=== PATIENT | male | born 1935 | race Caucasian/White ===

== ENCOUNTER 2018-04-15 21:02 | Inpatient (IN) | payer MEDICARE, OTHER ==
[~2018-04-15] VITALS: Ht 177.8 cm; Wt 68.9 kg
[~2018-04-15 21:02] MED LIST: ADULT WAL-100 MG/5 M ORAL; ASPIRIN81 MG ORAL; ATORVASTATIN CA80 MG ORAL; CARDURA4 MG ORAL; DOCUSATE SODIU100 MG ORAL; LOSARTAN POTASS50 MG ORAL; PREDNISONE5 M4 PO; SENNA8.6 M2 PO; VITAMIN B-12500 MCG ORAL; VITAMIN D-40400 UNIT ORAL; ZOFRAN8 MG ORAL
[2018-04-15 21:05] VITALS: BP 111/64
[2018-04-15] MEDS ORDERED: Ipratropium 0.02% Inh Soln 2.5ml UD HHN ONE (21:15)
[2018-04-15] MEDS ORDERED: Albuterol ud Inhalation HHN ONE (21:15)
[2018-04-15] MEDS ORDERED: Sodium Chloride 500ML 500 ML IV ONE (21:15)
[2018-04-15] MEDS ORDERED: ADVAIR 250/501 PUFFS INH (21:24)
[2018-04-15] MEDS ORDERED: PROTONIX40 MG ORAL (21:24)
[2018-04-15] MEDS ORDERED: MECLIZINE HCL25 MG ORAL (21:24)
[2018-04-15] MEDS ORDERED: FLONASE ALLERG9.9 ML NS (21:24)
[2018-04-15] MEDS ORDERED: LANTUS SOL100 UNIT/1 SUBQ (21:24)
[2018-04-15] MEDS ORDERED: DUONEB 0.5-3(2.53 ML HHN (21:24)
[2018-04-15] MEDS ORDERED: TUMS200 M1 PO (21:24)
[2018-04-15] MEDS ORDERED: SPIRIVA18 MCG INH (21:24)
[2018-04-15] MEDS ORDERED: MULTIVITAMINS1 EAC2 ORAL (21:24)
[2018-04-15] MEDS ORDERED: PREVACID30 MG ORAL (21:24)
[2018-04-15] MEDS ORDERED: ATIVAN0.5 MG ORAL (21:24)
[2018-04-15] MEDS ORDERED: FERROUS SULFAT325 MG ORAL (21:24)
[2018-04-15] MEDS ORDERED: ZYRTEC10 MG ORAL (21:24)
[2018-04-15] MEDS ORDERED: CARDURA4 MG ORAL (21:27)
--- NOTE | 2018-04-15 23:04 | Emergency Room Report ---
History of Present Illness General Chief Complaint: Fever Present Illness HPI Patient is a cough and difficulty breathing. 83-year-old male who presented after increased cough and difficulty breathing. Patient prior history of COPD. He had reportedly been having increased fever as well as low blood pressure. Patient was noted to have pulsed which as stated that he is DO NOT RESUSCITATE. The patient reports having increased productive cough. The patient stated that he resides at a nursing facility. The patient is noted to be self responsible. Allergies: Coded Allergies: RISPERIDONE (Verified Allergy, Intermediate, 04/27/16) Patient History Past Medical History: see triage record Reviewed Nursing Documentation: PMH: Agreed; PSxH: Agreed Nursing Documentation-PMH Hx Cardiac Problems: Yes - Atherosclerosis; Anemia Hx Hypertension: Yes Hx COPD: Yes Hx Diabetes: Yes Hx Gastrointestinal Problems: Yes - Reflux Review of Systems All Other Systems: negative except mentioned in HPI Physical Exam Vital Signs Date Time Temp Pulse Resp B/P (MAP) Pulse Ox O2 Delivery O2 Flow Rate FiO2 04/15/18 20:54 98.4 92 22 102/50 99 Nasal Cannula 2.0 Sp02 EP Interpretation: reviewed, normal General Appearance: normal inspection, well appearing, no apparent distress, alert, cachetic, Chronically Ill Head: atraumatic ENT: normal ENT inspection, hearing grossly normal, normal voice Neck: normal inspection, full range of motion, supple, no bony tend Respiratory: normal inspection, no retraction, wheezing Cardiovascular #1: regular rate, rhythm, no edema Gastrointestinal: normal inspection, normal bowel sounds, non tender, soft, no guarding, no hernia Genitourinary: no CVA tenderness Musculoskeletal: normal inspection, back normal, normal range of motion Neurologic: normal inspection, alert, oriented x3, responsive, teleprinter III-XII nml as tested, speech normal Psychiatric: normal inspection, judgement/insight normal, mood/affect normal Skin: normal inspection, normal color, no rash Medical Decision Making Diagnostic Impression: Primary Impression: COPD exacerbation ER Course Patient presented for cough and increased difficulty breathing. Patient prior history of COPD. Patient states he had previous bad experience at the hospital and refused most interventions. Noted to have a prior history of COPD. He was given breathing treatment the patient refused IV as well as the EKG testing. The patient was noted to have some oxygen requirements was started on supplemental oxygen. Patient was noted to be self responsible. He is to be awake and alert. The patient was noted to have some continued difficulty breathing however he declined the IV fluids as well as IV medications. Dr. Leland Joseph was contacted for inpatient management. The patient will likely require further respiratory management to include breathing treatments and possible antibiotics Last Vital Signs Date Time Temp Pulse Resp B/P (MAP) Pulse Ox O2 Delivery O2 Flow Rate FiO2 04/15/18 22:44 92 20 99 Nasal Cannula 2.0 04/15/18 20:54 98.4 102/50 Status: unchanged Disposition: ADMITTED INPATIENT Condition: Serious Javier Machuca MD Apr 15, 2018 23:04
[2018-04-16 00:50] VITALS: BP 123/72
[2018-04-16 01:00] VITALS: BP 98/46
[2018-04-16] MEDS ORDERED: LORazepam 0.5mg tab ORAL PRN (06:15)
[2018-04-16] MEDS ORDERED: LORazepam Inj 2mg/ml 1ml IV PRN (06:15)
[2018-04-16] MEDS ORDERED: Nitroglycerin Subl 0.4mg tab SL PRN (06:15)
[2018-04-16] MEDS ORDERED: Promethazine/Codeine 5ml UD ORAL PRN (06:15)
[2018-04-16] MEDS ORDERED: Ketorolac 30mg Inj IV PRN (06:15)
[2018-04-16] MEDS ORDERED: Morphine Sulfate 2mg/ml Inj IVP PRN (06:15)
[2018-04-16] MEDS ORDERED: Solu-MEDROL 125mg Inj IV SCH (06:30)
[2018-04-16 07:29] LABS: BASOPHILS % (AUTO) 0.5 % (0.0-2.0); EOSINOPHILS % (AUTO) 1.9 % (0.0-3.0); HEMATOCRIT 27.3 % (42.0-52.0); HEMOGLOBIN 8.9 G/DL (14.2-18.0); LYMPHOCYTES % (AUTO) 6.6 % (20.0-45.0); MEAN CORPUSCULAR VOLUME 84 FL (80-99); MONOCYTES % (AUTO) 9.4 % (1.0-10.0); NEUTROPHILS % (AUTO) 81.6 % (45.0-75.0); PLATELET COUNT 499 K/UL (150-450); RED BLOOD COUNT 3.26 M/UL (4.70-6.10); RED CELL DISTRIBUTION WIDTH 15.6 % (11.6-14.8); WHITE BLOOD COUNT 13.8 K/UL (4.8-10.8)
[2018-04-16 07:49] LABS: ANION GAP 11 mmol/L (5-15); BLOOD UREA NITROGEN 89 mg/dL (7-18); CALCIUM 9.6 MG/DL (8.5-10.1); CARBON DIOXIDE 26 MMOL/L (21-32); CHLORIDE 97 MMOL/L (98-107); CREATININE 2.4 MG/DL (0.55-1.30); POTASSIUM 3.3 MMOL/L (3.5-5.1); SODIUM 134 MMOL/L (136-145)
[2018-04-16 08:00] VITALS: BP 112/53
[2018-04-16 08:00] LABS: ALANINE AMINOTRANSFERASE 21 U/L (12-78); ALBUMIN 2.1 G/DL (3.4-5.0); ALBUMIN/GLOBULIN RATIO 0.3 (1.0-2.7); ALKALINE PHOSPHATASE 106 U/L (46-116); ASPARTATE AMINO TRANSFERASE 26 U/L (15-37); BILIRUBIN,TOTAL 0.7 MG/DL (0.2-1.0)
[2018-04-16] MEDS ORDERED: Piperacillin/Tazobactam 3.375 GM in NS 110 ML IVPB SCH (08:00)
[2018-04-16] MEDS: Doxazosin 4mg tab ORAL SCH (08:33)
[2018-04-16] MEDS: Theophylline ER 100mg ORAL SCH ×2 (08:33→20:44)
[2018-04-16] MEDS: Heparin 5000 units/ml inj SUBQ SCH ×2 (08:53→20:37)
[2018-04-16] MEDS: Losartan 50mg tab ORAL SCH (08:53)
[2018-04-16] MEDS ORDERED: Aspirin Baby 81mg ORAL SCH (09:00)
[2018-04-16 10:55] LABS: CREATINE KINASE 94 U/L (26-308)
--- NOTE | 2018-04-16 10:55 | Consultation ---
History of Present Illness General Date patient seen: Apr 16, 2018 Chief Complaint: Fever Reason for Consultation: dyspnea Present Illness HPI 83 year old male with hx of COPD, CKD, DM, BPH, PVD, cachectic, DNR, [facility] resident brought in with CC of cough and difficulty breathing, fever as well as low blood pressure. His cxr showed emphysematous changes and bibasilar infiltrate. He received IV fluids and respiratory treatment in ER and admitted to telemetry for further management. Allergies: Coded Allergies: RISPERIDONE (Verified Allergy, Intermediate, 04/27/16) Medication History Scheduled Aspirin* (Aspirin*), 81 MG ORAL DAILY, (Reported) Atorvastatin Calcium* (Lipitor*), 80 MG ORAL BEDTIME, (Reported) Calcium Carbonate (Tums), 200 MG PO Q4HR, (Reported) Cetirizine Hcl* (Zyrtec*), 10 MG ORAL DAILY, (Reported) Cholecalciferol (Vitamin D3) (Vitamin D-400*), 400 UNITS ORAL DAILY, (Reported) Cyanocobalamin (Vitamin B-12)* (Vitamin B-12*), 500 MCG ORAL DAILY, (Reported) Docusate Sodium* (Docusate Sodium*), 100 MG ORAL TWICE A DAY, (Reported) Doxazosin Mesylate* (Cardura*), 6 MG ORAL BEDTIME, (Reported) Doxazosin Mesylate* (Cardura*), 4 MG ORAL HS, (Reported) Ferrous Sulfate* (Ferrous Sulfate*), 325 MG ORAL THREE TIMES A DAY, (Reported) Fluticasone Propionate (Flonase Allergy Relief), 9.9 ML NS BID, (Reported) Fluticasone/Salmeterol (Advair 250-50 Diskus), 1 PUFF INH EVERY 12 HOURS, ( Reported) Guaifenesin* (Adult Wal-Tussin*), 30 ML ORAL EVERY 6 HOURS, (Reported) Insulin Glargine (Lantus), 10 SUBQ DAILY, (Reported) Ipratropium/Albuterol Sulfate (DuoNeb 0.5-3(2.5)mg/3ml), 3 ML HHN Q4HR, ( Reported) Lansoprazole* (Prevacid*), 30 MG ORAL BID, (Reported) Losartan Potassium* (Losartan Potassium*), 50 MG ORAL DAILY, (Reported) Multivitamins* (Multivitamins*), 1 TAB ORAL DAILY, (Reported) Ondansetron Hcl* (Zofran*), 8 MG ORAL EVERY 4 HOURS, (Reported) Pantoprazole* (Protonix*), 40 MG ORAL EVERY 12 HOURS, (Reported) Prednisone (Prednisone), 60 MG PO DAILY, (Reported) Sennosides (Senna), 17.2 MG PO BEDTIME, (Reported) Tiotropium [place]* (Spiriva*), 1 PUFF INH DAILY, (Reported) Scheduled PRN Lorazepam* (Ativan*), 0.5 MG ORAL DAILY PRN for For Anxiety, (Reported) Meclizine Hcl* (Meclizine*), 25 MG ORAL THREE TIMES A DAY PRN for for dizziness, (Reported) Patient History Healthcare decision maker Resuscitation status Do Not Resuscitate Advanced Directive on File No Past Medical/Surgical History Past Medical/Surgical History: (1) Emphysema of lung (2) PVD (peripheral vascular disease) (3) Severe protein-calorie malnutrition (4) Hypertension Review of Systems All Other Systems: negative except mentioned in HPI Physical Exam General Appearance: cachetic Lines, tubes and drains: peripheral HEENT: normocephalic, atraumatic Neck: non-tender, normal alignment Respiratory/Chest: chest wall non-tender Breasts: no masses Cardiovascular/Chest: normal peripheral pulses, normal rate Abdomen: normal bowel sounds, soft Genitourinary/Rectal: normal genital exam, normal rectal exam Extremities: normal range of motion, non-tender 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: rotary 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 II-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 grossly normal Last 24 Hour Vital Signs Date Time Temp Pulse Resp B/P (MAP) Pulse Ox O2 Delivery O2 Flow Rate FiO2 04/16/18 08:53 112/53 04/16/18 08:00 97.3 117 19 112/53 (72) 96 04/16/18 07:45 110 18 Nasal Cannula 2.0 28 04/16/18 02:50 87 04/16/18 02:38 Nasal Cannula 2.0 04/16/18 01:00 98 17 98/46 (63) 99 04/16/18 00:55 98.5 78 20 123/72 99 Nasal Cannula 2.0 04/16/18 00:50 98.5 78 20 123/72 99 Nasal Cannula 2.0 04/15/18 23:32 92 20 Nasal Cannula 2.0 04/15/18 22:44 92 20 99 Nasal Cannula 2.0 04/15/18 22:30 89 20 Nasal Cannula 2.0 04/15/18 22:29 89 20 99 Nasal Cannula 2.0 04/15/18 21:05 98.1 87 22 111/64 99 Nasal Cannula 2.0 04/15/18 20:54 98.4 92 22 102/50 99 Nasal Cannula 2.0 Intake and Output 04/15/18 04/16/18 19:00 07:00 Intake Total 320 ml Output Total 400 ml Balance -80 ml Intake Oral 320 ml Output Urine Total 400 ml Laboratory Tests Test 04/16/18 07:15 04/16/18 07:16 Uric Acid Pending Total Creatine Kinase Pending White Blood Count 13.8 K/UL (4.8-10.8) H Red Blood Count 3.26 M/UL (4.70-6.10) L Hemoglobin 8.9 G/DL (14.2-18.0) L Hematocrit 27.3 % (42.0-52.0) L Mean Corpuscular Volume 84 FL (80-99) Mean Corpuscular Hemoglobin 27.4 PG (27.0-31.0) Mean Corpuscular Hemoglobin Concent 32.7 G/DL (32.0-36.0) Red Cell Distribution Width 15.6 % (11.6-14.8) H Platelet Count 499 K/UL (150-450) H Mean Platelet Volume 6.5 FL (6.5-10.1) Neutrophils (%) (Auto) 81.6 % (45.0-75.0) H Lymphocytes (%) (Auto) 6.6 % (20.0-45.0) L Monocytes (%) (Auto) 9.4 % (1.0-10.0) Eosinophils (%) (Auto) 1.9 % (0.0-3.0) Basophils (%) (Auto) 0.5 % (0.0-2.0) Sodium Level 134 MMOL/L (136-145) L Potassium Level 3.3 MMOL/L (3.5-5.1) L Chloride Level 97 MMOL/L (98-107) L Carbon Dioxide Level 26 MMOL/L (21-32) Anion Gap 11 mmol/L (5-15) Blood Urea Nitrogen 89 mg/dL (7-18) H Creatinine 2.4 MG/DL (0.55-1.30) H Estimat Glomerular Filtration Rate mL/min (>60) Glucose Level 169 MG/DL (74-106) H Calcium Level 9.6 MG/DL (8.5-10.1) Total Bilirubin 0.7 MG/DL (0.2-1.0) Aspartate Amino Transf (AST/SGOT) 26 U/L (15-37) Alanine Aminotransferase (ALT/SGPT) 21 U/L (12-78) Alkaline Phosphatase 106 U/L (46-116) Troponin I 0.017 ng/mL (0.000-0.056) Pro-B-Type Natriuretic Peptide 3987 pg/mL (0-125) H Total Protein 8.1 G/DL (6.4-8.2) Albumin 2.1 G/DL (3.4-5.0) L Globulin 6.0 g/dL Albumin/Globulin Ratio 0.3 (1.0-2.7) L Height (Feet): 5 Height (Inches): 10.00 Weight (Pounds): 132 Medications Current Medications Medications (Trade) Dose Ordered Sig/Amish Route PRN Reason Start Time Stop Time Status Last Admin Dose Admin Albuterol/ Ipratropium (Albuterol/ Ipratropium) 3 ml Q4H PRN HHN dyspnea 04/16/18 06:15 04/21/18 06:14 Aspirin (ASA) 81 mg DAILY ORAL 04/16/18 09:00 05/16/18 08:59 04/16/18 08:32 Atorvastatin Calcium (Lipitor) 80 mg BEDTIME ORAL 04/16/18 21:00 05/16/18 20:59 Dextrose (Dextrose 50%) 25 ml Q30M PRN IV Hypoglycemia 04/16/18 06:15 05/16/18 06:14 Dextrose (Dextrose 50%) 50 ml Q30M PRN IV Hypoglycemia 04/16/18 06:15 05/16/18 06:14 Doxazosin Mesylate (Cardura) 4 mg DAILY ORAL 04/16/18 09:00 05/16/18 08:59 04/16/18 08:33 Heparin Sodium (Porcine) (Heparin 5000 units/ml) 5,000 units EVERY 12 HOURS SUBQ 04/16/18 09:00 05/16/18 08:59 Ketorolac Tromethamine (Toradol 30mg) 30 mg EVERY 8 HOURS PRN IV moderate pain 4-6 04/16/18 06:15 04/21/18 06:14 Lorazepam (Ativan 2mg/ml 1ml) 0.5 mg Q4H PRN IV For Anxiety 04/16/18 06:15 04/23/18 06:14 Lorazepam (Ativan) 0.5 mg DAILY PRN ORAL For Anxiety 04/16/18 06:15 04/23/18 06:14 UNV Losartan Potassium (Cozaar) 50 mg DAILY ORAL 04/16/18 09:00 05/16/18 08:59 Methylprednisolone Sodium Succinate (Solu-MEDROL) 60 mg EVERY 6 HOURS IV 04/16/18 06:30 05/16/18 06:29 Morphine Sulfate (Morphine Sulfate) 2 mg Q4H PRN IVP severe pain 7-10 04/16/18 06:15 04/23/18 06:14 Nitroglycerin (Ntg) 0.4 mg Q5M X 3 DOSES PRN SL Prn Chest Pain 04/16/18 06:15 05/16/18 06:14 Ondansetron HCl (Zofran) 4 mg Q6H PRN IVP Nausea & Vomiting 04/16/18 06:15 05/16/18 06:14 Piperacillin Sod/ Tazobactam Sod 3.375 gm/Sodium Chloride 110 ml @ 27.5 mls/hr Q8H IVPB 04/16/18 08:00 04/23/18 07:59 Promethazine HCl/ Codeine (Phenergan with Codeine) 5 ml Q6H PRN ORAL cough 04/16/18 06:15 05/16/18 06:14 Temazepam (Restoril) 15 mg HSPRN PRN ORAL Insomnia 04/16/18 06:15 04/23/18 06:14 Theophylline (Nader-Dur) 100 mg EVERY 12 HOURS ORAL 04/16/18 09:00 05/16/18 08:59 04/16/18 08:33 Tiotropium [place] (Spiriva Inhaler) 1 puff DAILY INH 04/16/18 09:00 05/16/18 08:59 Assessment/Plan Problem List: (1) Acute respiratory failure ICD Codes: J96.00 - Acute respiratory failure, unspecified whether with hypoxia or hypercapnia SNOMED: 74547421 (2) ATN (acute tubular necrosis) ICD Codes: N17.0 - Acute kidney failure with tubular necrosis SNOMED: 62394467 (3) CKD (chronic kidney disease) ICD Codes: N18.9 - Chronic kidney disease, unspecified SNOMED: 401609961 (4) Severe protein-calorie malnutrition ICD Codes: E43 - Unspecified severe protein-calorie malnutrition SNOMED: 277492038 (5) Hypertension ICD Codes: I10 - Essential (primary) hypertension SNOMED: 50909507 (6) PVD (peripheral vascular disease) ICD Codes: I73.9 - Peripheral vascular disease, unspecified SNOMED: 214450752 (7) Emphysema of lung ICD Codes: J43.9 - Emphysema, unspecified SNOMED: 24003025 (8) COPD exacerbation ICD Codes: J44.1 - Chronic obstructive pulmonary disease with (acute) exacerbation SNOMED: 461901686 Assessment/Plan respiratory treatment IV steroids iv abx renal w/u iv fluid symptomatic treatment DNR is appropriate med/surg Alejandrina Cee MD Apr 16, 2018 10:55
--- NOTE | 2018-04-16 16:41 | Consultation ---
History of Present Illness General Date patient seen: Apr 16, 2018 Chief Complaint: Fever Reason for Consultation: dyspnea Present Illness HPI 83 y/o M with hx of COPD, CKD, DM, HTN, anemia, GERD, BPH, PVD, cachectic, DNR, [facility] on 04/15 with cough, SOB, fever and hypotension. CXR showed bibasilar infiltrates. Allergies: Coded Allergies: RISPERIDONE (Verified Allergy, Intermediate, 04/27/16) Medication History Scheduled Aspirin* (Aspirin*), 81 MG ORAL DAILY, (Reported) Atorvastatin Calcium* (Lipitor*), 80 MG ORAL BEDTIME, (Reported) Calcium Carbonate (Tums), 200 MG PO Q4HR, (Reported) Cetirizine Hcl* (Zyrtec*), 10 MG ORAL DAILY, (Reported) Cholecalciferol (Vitamin D3) (Vitamin D-400*), 400 UNITS ORAL DAILY, (Reported) Cyanocobalamin (Vitamin B-12)* (Vitamin B-12*), 500 MCG ORAL DAILY, (Reported) Docusate Sodium* (Docusate Sodium*), 100 MG ORAL TWICE A DAY, (Reported) Doxazosin Mesylate* (Cardura*), 6 MG ORAL BEDTIME, (Reported) Doxazosin Mesylate* (Cardura*), 4 MG ORAL HS, (Reported) Ferrous Sulfate* (Ferrous Sulfate*), 325 MG ORAL THREE TIMES A DAY, (Reported) Fluticasone Propionate (Flonase Allergy Relief), 9.9 ML NS BID, (Reported) Fluticasone/Salmeterol (Advair 250-50 Diskus), 1 PUFF INH EVERY 12 HOURS, ( Reported) Guaifenesin* (Adult Wal-Tussin*), 30 ML ORAL EVERY 6 HOURS, (Reported) Insulin Glargine (Lantus), 10 SUBQ DAILY, (Reported) Ipratropium/Albuterol Sulfate (DuoNeb 0.5-3(2.5)mg/3ml), 3 ML HHN Q4HR, ( Reported) Lansoprazole* (Prevacid*), 30 MG ORAL BID, (Reported) Losartan Potassium* (Losartan Potassium*), 50 MG ORAL DAILY, (Reported) Multivitamins* (Multivitamins*), 1 TAB ORAL DAILY, (Reported) Ondansetron Hcl* (Zofran*), 8 MG ORAL EVERY 4 HOURS, (Reported) Pantoprazole* (Protonix*), 40 MG ORAL EVERY 12 HOURS, (Reported) Prednisone (Prednisone), 60 MG PO DAILY, (Reported) Sennosides (Senna), 17.2 MG PO BEDTIME, (Reported) Tiotropium [place]* (Spiriva*), 1 PUFF INH DAILY, (Reported) Scheduled PRN Lorazepam* (Ativan*), 0.5 MG ORAL DAILY PRN for For Anxiety, (Reported) Meclizine Hcl* (Meclizine*), 25 MG ORAL THREE TIMES A DAY PRN for for dizziness, (Reported) Patient History Healthcare decision maker Resuscitation status Do Not Resuscitate Advanced Directive on File No Patient History Narrative Pmhx: as above Shx: reviewed Fhx: non contributory Review of Systems All Other Systems: negative except mentioned in HPI Physical Exam Physical Exam Narrative General Appearance: cachetic Lines, tubes and drains: peripheral HEENT: normocephalic, atraumatic Neck: non-tender, normal alignment Respiratory/Chest: chest wall non-tender Cardiovascular/Chest: normal peripheral pulses, normal rate Abdomen: normal bowel sounds, soft Extremities: normal range of motion, non-tender Neurologic: dehydrator tender II-XII grossly normal Last 24 Hour Vital Signs Date Time Temp Pulse Resp B/P (MAP) Pulse Ox O2 Delivery O2 Flow Rate FiO2 04/16/18 12:00 90 04/16/18 11:09 Nasal Cannula 2.0 04/16/18 09:00 Nasal Cannula 2.0 28 04/16/18 09:00 Nasal Cannula 2.0 28 04/16/18 08:53 112/53 04/16/18 08:00 97.3 117 19 112/53 (72) 96 04/16/18 07:45 110 18 Nasal Cannula 2.0 28 04/16/18 02:50 87 04/16/18 02:38 Nasal Cannula 2.0 04/16/18 01:00 98 17 98/46 (63) 99 04/16/18 00:55 98.5 78 20 123/72 99 Nasal Cannula 2.0 04/16/18 00:50 98.5 78 20 123/72 99 Nasal Cannula 2.0 04/15/18 23:32 92 20 Nasal Cannula 2.0 04/15/18 22:44 92 20 99 Nasal Cannula 2.0 04/15/18 22:30 89 20 Nasal Cannula 2.0 04/15/18 22:29 89 20 99 Nasal Cannula 2.0 04/15/18 21:05 98.1 87 22 111/64 99 Nasal Cannula 2.0 04/15/18 20:54 98.4 92 22 102/50 99 Nasal Cannula 2.0 Intake and Output 04/15/18 04/16/18 19:00 07:00 Intake Total 320 ml Output Total 400 ml Balance -80 ml Intake Oral 320 ml Output Urine Total 400 ml Laboratory Tests Test 04/16/18 07:15 04/16/18 07:16 Uric Acid 17.8 MG/DL (2.6-7.2) H Total Creatine Kinase 94 U/L (26-308) White Blood Count 13.8 K/UL (4.8-10.8) H Red Blood Count 3.26 M/UL (4.70-6.10) L Hemoglobin 8.9 G/DL (14.2-18.0) L Hematocrit 27.3 % (42.0-52.0) L Mean Corpuscular Volume 84 FL (80-99) Mean Corpuscular Hemoglobin 27.4 PG (27.0-31.0) Mean Corpuscular Hemoglobin Concent 32.7 G/DL (32.0-36.0) Red Cell Distribution Width 15.6 % (11.6-14.8) H Platelet Count 499 K/UL (150-450) H Mean Platelet Volume 6.5 FL (6.5-10.1) Neutrophils (%) (Auto) 81.6 % (45.0-75.0) H Lymphocytes (%) (Auto) 6.6 % (20.0-45.0) L Monocytes (%) (Auto) 9.4 % (1.0-10.0) Eosinophils (%) (Auto) 1.9 % (0.0-3.0) Basophils (%) (Auto) 0.5 % (0.0-2.0) Sodium Level 134 MMOL/L (136-145) L Potassium Level 3.3 MMOL/L (3.5-5.1) L Chloride Level 97 MMOL/L (98-107) L Carbon Dioxide Level 26 MMOL/L (21-32) Anion Gap 11 mmol/L (5-15) Blood Urea Nitrogen 89 mg/dL (7-18) H Creatinine 2.4 MG/DL (0.55-1.30) H Estimat Glomerular Filtration Rate mL/min (>60) Glucose Level 169 MG/DL (74-106) H Calcium Level 9.6 MG/DL (8.5-10.1) Total Bilirubin 0.7 MG/DL (0.2-1.0) Aspartate Amino Transf (AST/SGOT) 26 U/L (15-37) Alanine Aminotransferase (ALT/SGPT) 21 U/L (12-78) Alkaline Phosphatase 106 U/L (46-116) Troponin I 0.017 ng/mL (0.000-0.056) Pro-B-Type Natriuretic Peptide 3987 pg/mL (0-125) H Total Protein 8.1 G/DL (6.4-8.2) Albumin 2.1 G/DL (3.4-5.0) L Globulin 6.0 g/dL Albumin/Globulin Ratio 0.3 (1.0-2.7) L Height (Feet): 5 Height (Inches): 10.00 Weight (Pounds): 132 Medications Current Medications Medications (Trade) Dose Ordered Sig/Amish Route PRN Reason Start Time Stop Time Status Last Admin Dose Admin Albuterol/ Ipratropium (Albuterol/ Ipratropium) 3 ml Q4H PRN HHN dyspnea 04/16/18 06:15 04/21/18 06:14 Amoxicillin/ Clavulanate Potassium (Augmentin) 500 mg EVERY 12 HOURS ORAL 04/16/18 12:00 04/23/18 11:59 04/16/18 12:03 Dextrose (Dextrose 50%) 25 ml Q30M PRN IV Hypoglycemia 04/16/18 06:15 05/16/18 06:14 Dextrose (Dextrose 50%) 50 ml Q30M PRN IV Hypoglycemia 04/16/18 06:15 05/16/18 06:14 Doxazosin Mesylate (Cardura) 4 mg DAILY ORAL 04/16/18 09:00 05/16/18 08:59 04/16/18 08:33 Heparin Sodium (Porcine) (Heparin 5000 units/ml) 5,000 units EVERY 12 HOURS SUBQ 04/16/18 09:00 05/16/18 08:59 Lorazepam (Ativan) 0.5 mg DAILY PRN ORAL For Anxiety 04/16/18 06:15 04/23/18 06:14 Losartan Potassium (Cozaar) 50 mg DAILY ORAL 04/16/18 09:00 05/16/18 08:59 Nitroglycerin (Ntg) 0.4 mg Q5M X 3 DOSES PRN SL Prn Chest Pain 04/16/18 06:15 05/16/18 06:14 Prednisone (predniSONE) 40 mg DAILY ORAL 04/16/18 12:00 05/16/18 11:59 04/16/18 12:02 Promethazine HCl/ Codeine (Phenergan with Codeine) 5 ml Q6H PRN ORAL cough 04/16/18 06:15 05/16/18 06:14 Temazepam (Restoril) 15 mg HSPRN PRN ORAL Insomnia 04/16/18 06:15 04/23/18 06:14 Theophylline (Nader-Dur) 100 mg EVERY 12 HOURS ORAL 04/16/18 09:00 05/16/18 08:59 04/16/18 08:33 Tiotropium [place] (Spiriva Inhaler) 1 puff DAILY INH 04/16/18 09:00 05/16/18 08:59 Assessment/Plan Assessment/Plan Abx: Augmentin 04/16- Assessment: Suspected PNA (+cough, fever, SOB) Fever, SVP RESEARCH & EBUS[employer] OPERATIONS - none here Leukocytosis PETER on CKD COPD DM HTN anemia GERD BPH PVD cachectic DNR jail resident Plan: -Switch Augmentin #1 to PO Levaquin and add Linezolid for suspected PNA -CXR STAT -sp cx, influenza sc -f/u cx -Monitor CBC/CMP, temperatures Thank you for this consultation. Will continue to follow along with you. Discussed with Paula Parsons M.D. Apr 16, 2018 16:41
[2018-04-16] MEDS: Levofloxacin 500mg tab ORAL SCH ×2 (17:00→17:13)
[2018-04-16] MEDS ORDERED: Levofloxacin 500mg tab ORAL SCH (20:00)
[2018-04-16 20:56] LABS: APPEARANCE,URINE CLEAR; BILIRUBIN, URINE NEGATIVE (NEGATIVE); COLOR,URINE PALE YELLOW; GLUCOSE, URINE (UA) NEGATIVE (NEGATIVE); KETONES,URINE NEGATIVE (NEGATIVE); LEUKOCYTE ESTERASE ,URINE 1+ (NEGATIVE); NITRITE,URINE NEGATIVE (NEGATIVE); PH,URINE 5 (4.5-8.0); PROTEIN,URINE 2+ (NEGATIVE); UROBILINOGEN,URINE NORMAL MG/DL (0.0-1.0)
[2018-04-16] MEDS ORDERED: Atorvastatin 80mg tab ORAL SCH (21:00)
--- NOTE | 2018-04-16 21:00 | History and Physical Report ---
DATE OF ADMISSION: 04/15/2018 TIME SEEN: On 04/16/2018 at 12 noon. CONSULTANTS: 1. Alejandrina Cee M.D. 2. Solomon Candelaria M.D. CHIEF COMPLAINT: Shortness of breath, failure to thrive, weakness, cough, pneumonia. BRIEF HISTORY: This is an 83-year-old male from [facility], who presented with increased shortness of breath, weak, and lethargy, was diagnosed with pneumonia and sepsis, and admitted to telemetry for further care. Currently, O2 NC, slight short of breath in bed, no complaint. REVIEW OF SYSTEMS: No chest pain. Slight shortness of breath. No nausea, vomiting, or diarrhea. PAST MEDICAL HISTORY: Diabetes. PAST SURGICAL HISTORY: None. ALLERGIES: Risperidone. MEDICATIONS: Include prednisone, Augmentin, potassium, losartan, theophylline, lorazepam, nitroglycerin, temazepam. SOCIAL HISTORY: No smoking. Occasional alcohol. No intravenous drug abuse. FAMILY HISTORY: Noncontributory. PHYSICAL EXAMINATION: GENERAL: Calm in bed, oriented x2, in no acute distress. VITAL SIGNS: Temperature 97 degrees, pulse 117, respirations 19, blood pressure 112/53. CARDIOVASCULAR: No murmur. LUNGS: Poor air exchange. ABDOMEN: Bowel sounds distant. EXTREMITIES: No cyanosis or edema. NEUROLOGIC: The patient moves all extremities, slightly weak. LABORATORY AND DIAGNOSTIC DATA: Labs at this time show white count 13.8, hemoglobin and hematocrit 8.9/27, platelets 499,000. BMP shows sodium 134, potassium 3.3, chloride 97, BUN and creatinine 89/2.4, glucose 169. ASSESSMENT: Failure to thrive, weakness, cough, pneumonia, sepsis, anemia, diabetes, hypertension, CKD, COPD, ATN. PLAN: Continue previous medications. O2 and pulmonary treatment. OT, PT, dietary evaluation. Antibiotics per Infectious Disease. Blood pressure and blood sugar control. Dr. Quintana, Dr. Jo, and Dr. Robert to consult. We will continue to follow this patient medically. Leland Joseph D.O. DR: José Luis JOB#: [id number] CC:
--- NOTE | 2018-04-16 21:37 | Cardiology Progress Note ---
Assessment/Plan Assessment/Plan The patient is seen and examined, full [id number] note is dictated. Objective Last 24 Hour Vital Signs Date Time Temp Pulse Resp B/P (MAP) Pulse Ox O2 Delivery O2 Flow Rate FiO2 04/16/18 19:41 95 18 Nasal Cannula 2.0 28 04/16/18 12:00 90 04/16/18 11:09 Nasal Cannula 2.0 04/16/18 09:00 Nasal Cannula 2.0 28 04/16/18 09:00 Nasal Cannula 2.0 28 04/16/18 08:53 112/53 04/16/18 08:00 97.3 117 19 112/53 (72) 96 04/16/18 07:45 110 18 Nasal Cannula 2.0 28 04/16/18 02:50 87 04/16/18 02:38 Nasal Cannula 2.0 04/16/18 01:00 98 17 98/46 (63) 99 04/16/18 00:55 98.5 78 20 123/72 99 Nasal Cannula 2.0 04/16/18 00:50 98.5 78 20 123/72 99 Nasal Cannula 2.0 04/15/18 23:32 92 20 Nasal Cannula 2.0 04/15/18 22:44 92 20 99 Nasal Cannula 2.0 04/15/18 22:30 89 20 Nasal Cannula 2.0 04/15/18 22:29 89 20 99 Nasal Cannula 2.0 Intake and Output 04/15/18 04/16/18 19:00 07:00 Intake Total 320 ml Output Total 400 ml Balance -80 ml Intake Oral 320 ml Output Urine Total 400 ml Laboratory Tests Test 04/16/18 07:15 04/16/18 07:16 04/16/18 20:45 Uric Acid 17.8 MG/DL (2.6-7.2) H Total Creatine Kinase 94 U/L (26-308) White Blood Count 13.8 K/UL (4.8-10.8) H Red Blood Count 3.26 M/UL (4.70-6.10) L Hemoglobin 8.9 G/DL (14.2-18.0) L Hematocrit 27.3 % (42.0-52.0) L Mean Corpuscular Volume 84 FL (80-99) Mean Corpuscular Hemoglobin 27.4 PG (27.0-31.0) Mean Corpuscular Hemoglobin Concent 32.7 G/DL (32.0-36.0) Red Cell Distribution Width 15.6 % (11.6-14.8) H Platelet Count 499 K/UL (150-450) H Mean Platelet Volume 6.5 FL (6.5-10.1) Neutrophils (%) (Auto) 81.6 % (45.0-75.0) H Lymphocytes (%) (Auto) 6.6 % (20.0-45.0) L Monocytes (%) (Auto) 9.4 % (1.0-10.0) Eosinophils (%) (Auto) 1.9 % (0.0-3.0) Basophils (%) (Auto) 0.5 % (0.0-2.0) Sodium Level 134 MMOL/L (136-145) L Potassium Level 3.3 MMOL/L (3.5-5.1) L Chloride Level 97 MMOL/L (98-107) L Carbon Dioxide Level 26 MMOL/L (21-32) Anion Gap 11 mmol/L (5-15) Blood Urea Nitrogen 89 mg/dL (7-18) H Creatinine 2.4 MG/DL (0.55-1.30) H Estimat Glomerular Filtration Rate mL/min (>60) Glucose Level 169 MG/DL (74-106) H Calcium Level 9.6 MG/DL (8.5-10.1) Total Bilirubin 0.7 MG/DL (0.2-1.0) Aspartate Amino Transf (AST/SGOT) 26 U/L (15-37) Alanine Aminotransferase (ALT/SGPT) 21 U/L (12-78) Alkaline Phosphatase 106 U/L (46-116) Troponin I 0.017 ng/mL (0.000-0.056) Pro-B-Type Natriuretic Peptide 3987 pg/mL (0-125) H Total Protein 8.1 G/DL (6.4-8.2) Albumin 2.1 G/DL (3.4-5.0) L Globulin 6.0 g/dL Albumin/Globulin Ratio 0.3 (1.0-2.7) L Urine Color Pale yellow Urine Appearance Clear Urine pH 5 (4.5-8.0) Urine Specific [place] 1.010 (1.005-1.035) Urine Protein 2+ (NEGATIVE) H Urine Glucose (UA) Negative (NEGATIVE) Urine Ketones Negative (NEGATIVE) Urine Blood Negative (NEGATIVE) Urine Nitrite Negative (NEGATIVE) Urine Bilirubin Negative (NEGATIVE) Urine Urobilinogen Normal MG/DL (0.0-1.0) Urine Leukocyte Esterase 1+ (NEGATIVE) H Urine RBC 0 /HPF (0 - 0) Urine WBC 0-2 /HPF (0 - 0) Urine Squamous Epithelial Cells None /LPF (NONE/OCC) Urine Bacteria Few /HPF (NONE) Ralph Jo MD Apr 16, 2018 21:37
[2018-04-17] MEDS: Albuterol/Ipratropium 3ml neb HHN PRN ×2 (03:23→15:47)
[2018-04-17 07:32] LABS: ANION GAP 11 mmol/L (5-15); BLOOD UREA NITROGEN 74 mg/dL (7-18); CALCIUM 9.5 MG/DL (8.5-10.1); CARBON DIOXIDE 25 MMOL/L (21-32); CHLORIDE 101 MMOL/L (98-107); CREATININE 1.8 MG/DL (0.55-1.30); POTASSIUM 4.3 MMOL/L (3.5-5.1); SODIUM 137 MMOL/L (136-145)
[2018-04-17 07:36] LABS: HEMATOCRIT 26.1 % (42.0-52.0); HEMOGLOBIN 8.6 G/DL (14.2-18.0); MEAN CORPUSCULAR VOLUME 85 FL (80-99); PLATELET COUNT 499 K/UL (150-450); RED BLOOD COUNT 3.08 M/UL (4.70-6.10); RED CELL DISTRIBUTION WIDTH 15.6 % (11.6-14.8); WHITE BLOOD COUNT 15.2 K/UL (4.8-10.8)
[2018-04-17 08:00] VITALS: BP 111/64
[2018-04-17] MEDS: Theophylline ER 100mg ORAL SCH ×2 (08:47→21:05)
[2018-04-17] MEDS: Doxazosin 4mg tab ORAL SCH (08:47)
[2018-04-17] MEDS: Losartan 50mg tab ORAL SCH (08:47)
[2018-04-17] MEDS: Heparin 5000 units/ml inj SUBQ SCH ×2 (09:00→21:00)
--- NOTE | 2018-04-17 09:54 | Nephrology Progress Note ---
Assessment/Plan Plan full consult dictated [id number] Objective Objective Last 24 Hour Vital Signs Date Time Temp Pulse Resp B/P (MAP) Pulse Ox O2 Delivery O2 Flow Rate FiO2 04/17/18 08:47 111/64 04/17/18 08:00 97.9 75 20 111/64 (80) 94 04/17/18 03:33 79 18 99 Room Air 21 04/17/18 03:23 75 18 98 Room Air 21 04/16/18 21:00 Nasal Cannula 2.0 04/16/18 19:41 95 18 Nasal Cannula 2.0 28 04/16/18 12:00 90 04/16/18 11:09 Nasal Cannula 2.0 Intake and Output 04/16/18 04/17/18 19:00 07:00 Intake Total 680 ml Balance 680 ml Intake Oral 680 ml # Voids 1 # Bowel Movements 1 1 Laboratory Tests 04/16/18 20:45: Urine Color Pale yellow, Urine Appearance Clear, Urine pH 5, Urine Specific [place] 1.010, Urine Protein 2+H, Urine Glucose (UA) Negative, Urine Ketones Negative, Urine Blood Negative, Urine Nitrite Negative, Urine Bilirubin Negative , Urine Urobilinogen Normal, Urine Leukocyte Esterase 1+H, Urine RBC 0, Urine WBC 0-2, Urine Squamous Epithelial Cells None, Urine Bacteria Few, Urine Eosinophils None seen, Urine Random Sodium < 20L, Urine Potassium Timed 18 04/17/18 05:25: White Blood Count 15.2H, Red Blood Count 3.08L, Hemoglobin 8.6L, Hematocrit 26.1L, Mean Corpuscular Volume 85, Mean Corpuscular Hemoglobin 28.0, Mean Corpuscular Hemoglobin Concent 33.1, Red Cell Distribution Width 15.6H, Platelet Count 499H, Mean Platelet Volume 6.2L, Neutrophils (%) (Auto) , Lymphocytes (%) (Auto) , Monocytes (%) (Auto) , Eosinophils (%) (Auto) , Basophils (%) (Auto) , Differential Total Cells Counted 100, Neutrophils % ( Manual) 90H, Lymphocytes % (Manual) 5L, Monocytes % (Manual) 5, Eosinophils % ( Manual) 0, Basophils % (Manual) 0, Band Neutrophils 0, Platelet Estimate Adequate, Platelet Morphology Normal, Hypochromasia 1+, Anisocytosis 1+, Sodium Level 137, Potassium Level 4.3, Chloride Level 101, Carbon Dioxide Level 25, Anion Gap 11, Blood Urea Nitrogen 74H, Creatinine 1.8H, Estimat Glomerular Filtration Rate , Glucose Level 179H, Calcium Level 9.5 Height (Feet): 5 Height (Inches): 10.00 Weight (Pounds): 132 Cecelia Quintana MD Apr 17, 2018 09:54
--- NOTE | 2018-04-17 10:53 | Infectious Diseases Prog Note ---
Assessment/Plan Assessment/Plan Abx: Augmentin 04/16- Assessment: Suspected PNA (+cough, fever, SOB) -CXR p -sp cx p Fever, [employer] - none here Leukocytosis, increased ( on steroids) PETER on CKD, improving COPD DM HTN anemia GERD BPH PVD cachectic DNR senior care resident Plan: -Continue PO Levaquin and Linezolid #2 for suspected PNA -04/16 SP Augmentin #1 -f/u CXR -sp cx, influenza sc -f/u cx -Monitor CBC/CMP, temperatures Thank you for this consultation. Will continue to follow along with you. Discussed with RN Subjective Allergies: Coded Allergies: RISPERIDONE (Verified Allergy, Intermediate, 04/27/16) Subjective afebrile wbc increased Objective Vital Signs Last 24 Hour Vital Signs Date Time Temp Pulse Resp B/P (MAP) Pulse Ox O2 Delivery O2 Flow Rate FiO2 04/17/18 10:01 78 16 2.0 28 04/17/18 09:57 78 16 94 Nasal Cannula 2.0 28 04/17/18 09:57 78 16 94 Nasal Cannula 2.0 28 04/17/18 09:00 Nasal Cannula 2.0 04/17/18 08:47 111/64 04/17/18 08:00 97.9 75 20 111/64 (80) 94 04/17/18 03:33 79 18 99 Room Air 21 04/17/18 03:23 75 18 98 Room Air 21 04/16/18 21:00 Nasal Cannula 2.0 04/16/18 19:41 95 18 Nasal Cannula 2.0 28 04/16/18 12:00 90 04/16/18 11:09 Nasal Cannula 2.0 Height (Feet): 5 Height (Inches): 10.00 Weight (Pounds): 132 Laboratory Tests Test 04/16/18 20:45 04/17/18 05:25 Urine Color Pale yellow Urine Appearance Clear Urine pH 5 (4.5-8.0) Urine Specific [place] 1.010 (1.005-1.035) Urine Protein 2+ (NEGATIVE) H Urine Glucose (UA) Negative (NEGATIVE) Urine Ketones Negative (NEGATIVE) Urine Blood Negative (NEGATIVE) Urine Nitrite Negative (NEGATIVE) Urine Bilirubin Negative (NEGATIVE) Urine Urobilinogen Normal MG/DL (0.0-1.0) Urine Leukocyte Esterase 1+ (NEGATIVE) H Urine RBC 0 /HPF (0 - 0) Urine WBC 0-2 /HPF (0 - 0) Urine Squamous Epithelial Cells None /LPF (NONE/OCC) Urine Bacteria Few /HPF (NONE) Urine Eosinophils None seen (NONE SEEN) Urine Random Sodium < 20 mmol/L (20-110) L Urine Potassium Timed 18 mmol/L (12-62) White Blood Count 15.2 K/UL (4.8-10.8) H Red Blood Count 3.08 M/UL (4.70-6.10) L Hemoglobin 8.6 G/DL (14.2-18.0) L Hematocrit 26.1 % (42.0-52.0) L Mean Corpuscular Volume 85 FL (80-99) Mean Corpuscular Hemoglobin 28.0 PG (27.0-31.0) Mean Corpuscular Hemoglobin Concent 33.1 G/DL (32.0-36.0) Red Cell Distribution Width 15.6 % (11.6-14.8) H Platelet Count 499 K/UL (150-450) H Mean Platelet Volume 6.2 FL (6.5-10.1) L Neutrophils (%) (Auto) % (45.0-75.0) Lymphocytes (%) (Auto) % (20.0-45.0) Monocytes (%) (Auto) % (1.0-10.0) Eosinophils (%) (Auto) % (0.0-3.0) Basophils (%) (Auto) % (0.0-2.0) Differential Total Cells Counted 100 Neutrophils % (Manual) 90 % (45-75) H Lymphocytes % (Manual) 5 % (20-45) L Monocytes % (Manual) 5 % (1-10) Eosinophils % (Manual) 0 % (0-3) Basophils % (Manual) 0 % (0-2) Band Neutrophils 0 % (0-8) Platelet Estimate Adequate Platelet Morphology Normal Hypochromasia 1+ Anisocytosis 1+ Sodium Level 137 MMOL/L (136-145) Potassium Level 4.3 MMOL/L (3.5-5.1) Chloride Level 101 MMOL/L (98-107) Carbon Dioxide Level 25 MMOL/L (21-32) Anion Gap 11 mmol/L (5-15) Blood Urea Nitrogen 74 mg/dL (7-18) H Creatinine 1.8 MG/DL (0.55-1.30) H Estimat Glomerular Filtration Rate mL/min (>60) Glucose Level 179 MG/DL (74-106) H Calcium Level 9.5 MG/DL (8.5-10.1) Current Medications Medications (Trade) Dose Ordered Sig/Amish Route PRN Reason Start Time Stop Time Status Last Admin Dose Admin Albuterol/ Ipratropium (Albuterol/ Ipratropium) 3 ml Q4H PRN HHN dyspnea 04/16/18 06:15 04/21/18 06:14 04/17/18 03:23 Dextrose (Dextrose 50%) 25 ml Q30M PRN IV Hypoglycemia 04/16/18 06:15 05/16/18 06:14 Dextrose (Dextrose 50%) 50 ml Q30M PRN IV Hypoglycemia 04/16/18 06:15 05/16/18 06:14 Doxazosin Mesylate (Cardura) 4 mg DAILY ORAL 04/16/18 09:00 05/16/18 08:59 04/17/18 08:47 Heparin Sodium (Porcine) (Heparin 5000 units/ml) 5,000 units EVERY 12 HOURS SUBQ 04/16/18 09:00 05/16/18 08:59 Levofloxacin (Levaquin) 750 mg EVERY OTHER DAY ORAL 04/16/18 17:00 04/23/18 16:59 Linezolid (Zyvox) 600 mg EVERY 12 HOURS ORAL 04/16/18 18:00 04/21/18 17:59 04/17/18 08:46 Lorazepam (Ativan) 0.5 mg DAILY PRN ORAL For Anxiety 04/16/18 06:15 04/23/18 06:14 Losartan Potassium (Cozaar) 50 mg DAILY ORAL 04/16/18 09:00 05/16/18 08:59 04/17/18 08:47 Nitroglycerin (Ntg) 0.4 mg Q5M X 3 DOSES PRN SL Prn Chest Pain 04/16/18 06:15 05/16/18 06:14 Prednisone (predniSONE) 40 mg DAILY ORAL 04/16/18 12:00 05/16/18 11:59 04/17/18 08:47 Promethazine HCl/ Codeine (Phenergan with Codeine) 5 ml Q6H PRN ORAL cough 04/16/18 06:15 05/16/18 06:14 Temazepam (Restoril) 15 mg HSPRN PRN ORAL Insomnia 04/16/18 06:15 04/23/18 06:14 Theophylline (Nader-Dur) 100 mg EVERY 12 HOURS ORAL 04/16/18 09:00 05/16/18 08:59 04/17/18 08:47 Tiotropium [place] (Spiriva Inhaler) 1 puff DAILY INH 04/16/18 09:00 05/16/18 08:59 04/17/18 09:54 Paula Light M.D. Apr 17, 2018 10:52
--- NOTE | 2018-04-17 10:56 | Pulmonology Progress Note ---
Assessment/Plan Problems: (1) Acute respiratory failure (2) ATN (acute tubular necrosis) (3) CKD (chronic kidney disease) (4) Severe protein-calorie malnutrition (5) Hypertension (6) PVD (peripheral vascular disease) (7) Emphysema of lung (8) COPD exacerbation Assessment/Plan improving respiratory treatment taper steroids check cultures iv abx dvt prophylaxis pt/ot med/surg Subjective ROS Limited/Unobtainable: No Constitutional: Reports: no symptoms HEENT: Repors: no symptoms Allergies: Coded Allergies: RISPERIDONE (Verified Allergy, Intermediate, 04/27/16) Objective Last 24 Hour Vital Signs Date Time Temp Pulse Resp B/P (MAP) Pulse Ox O2 Delivery O2 Flow Rate FiO2 04/17/18 10:01 78 16 2.0 28 04/17/18 09:57 78 16 94 Nasal Cannula 2.0 28 04/17/18 09:57 78 16 94 Nasal Cannula 2.0 28 04/17/18 09:00 Nasal Cannula 2.0 04/17/18 08:47 111/64 04/17/18 08:00 97.9 75 20 111/64 (80) 94 04/17/18 03:33 79 18 99 Room Air 21 04/17/18 03:23 75 18 98 Room Air 21 04/16/18 21:00 Nasal Cannula 2.0 04/16/18 19:41 95 18 Nasal Cannula 2.0 28 04/16/18 12:00 90 04/16/18 11:09 Nasal Cannula 2.0 Intake and Output 04/16/18 04/17/18 19:00 07:00 Intake Total 680 ml Balance 680 ml Intake Oral 680 ml # Voids 1 # Bowel Movements 1 1 Objective General Appearance: cachectic Lines, tubes and drains: peripheral HEENT: normocephalic Neck: non-tender Respiratory/Chest: chest wall non-tender, lungs clear Cardiovascular/Chest: normal peripheral pulses Abdomen: normal bowel sounds Genitourinary/Rectal: normal genital exam Extremities: normal range of motion, non-pitting Laboratory Tests 04/16/18 20:45: Urine Color Pale yellow, Urine Appearance Clear, Urine pH 5, Urine Specific [place] 1.010, Urine Protein 2+H, Urine Glucose (UA) Negative, Urine Ketones Negative, Urine Blood Negative, Urine Nitrite Negative, Urine Bilirubin Negative , Urine Urobilinogen Normal, Urine Leukocyte Esterase 1+H, Urine RBC 0, Urine WBC 0-2, Urine Squamous Epithelial Cells None, Urine Bacteria Few, Urine Eosinophils None seen, Urine Random Sodium < 20L, Urine Potassium Timed 18 04/17/18 05:25: White Blood Count 15.2H, Red Blood Count 3.08L, Hemoglobin 8.6L, Hematocrit 26.1L, Mean Corpuscular Volume 85, Mean Corpuscular Hemoglobin 28.0, Mean Corpuscular Hemoglobin Concent 33.1, Red Cell Distribution Width 15.6H, Platelet Count 499H, Mean Platelet Volume 6.2L, Neutrophils (%) (Auto) , Lymphocytes (%) (Auto) , Monocytes (%) (Auto) , Eosinophils (%) (Auto) , Basophils (%) (Auto) , Differential Total Cells Counted 100, Neutrophils % ( Manual) 90H, Lymphocytes % (Manual) 5L, Monocytes % (Manual) 5, Eosinophils % ( Manual) 0, Basophils % (Manual) 0, Band Neutrophils 0, Platelet Estimate Adequate, Platelet Morphology Normal, Hypochromasia 1+, Anisocytosis 1+, Sodium Level 137, Potassium Level 4.3, Chloride Level 101, Carbon Dioxide Level 25, Anion Gap 11, Blood Urea Nitrogen 74H, Creatinine 1.8H, Estimat Glomerular Filtration Rate , Glucose Level 179H, Calcium Level 9.5 Current Medications Medications (Trade) Dose Ordered Sig/Amish Route PRN Reason Start Time Stop Time Status Last Admin Dose Admin Albuterol/ Ipratropium (Albuterol/ Ipratropium) 3 ml Q4H PRN HHN dyspnea 04/16/18 06:15 04/21/18 06:14 04/17/18 03:23 Dextrose (Dextrose 50%) 25 ml Q30M PRN IV Hypoglycemia 04/16/18 06:15 05/16/18 06:14 Dextrose (Dextrose 50%) 50 ml Q30M PRN IV Hypoglycemia 04/16/18 06:15 05/16/18 06:14 Doxazosin Mesylate (Cardura) 4 mg DAILY ORAL 04/16/18 09:00 05/16/18 08:59 04/17/18 08:47 Heparin Sodium (Porcine) (Heparin 5000 units/ml) 5,000 units EVERY 12 HOURS SUBQ 04/16/18 09:00 05/16/18 08:59 Levofloxacin (Levaquin) 750 mg EVERY OTHER DAY ORAL 04/16/18 17:00 04/23/18 16:59 Linezolid (Zyvox) 600 mg EVERY 12 HOURS ORAL 04/16/18 18:00 04/21/18 17:59 04/17/18 08:46 Lorazepam (Ativan) 0.5 mg DAILY PRN ORAL For Anxiety 04/16/18 06:15 04/23/18 06:14 Losartan Potassium (Cozaar) 50 mg DAILY ORAL 04/16/18 09:00 05/16/18 08:59 04/17/18 08:47 Nitroglycerin (Ntg) 0.4 mg Q5M X 3 DOSES PRN SL Prn Chest Pain 04/16/18 06:15 05/16/18 06:14 Prednisone (predniSONE) 40 mg DAILY ORAL 04/16/18 12:00 05/16/18 11:59 04/17/18 08:47 Promethazine HCl/ Codeine (Phenergan with Codeine) 5 ml Q6H PRN ORAL cough 04/16/18 06:15 05/16/18 06:14 Temazepam (Restoril) 15 mg HSPRN PRN ORAL Insomnia 04/16/18 06:15 04/23/18 06:14 Theophylline (Nader-Dur) 100 mg EVERY 12 HOURS ORAL 04/16/18 09:00 05/16/18 08:59 04/17/18 08:47 Tiotropium [place] (Spiriva Inhaler) 1 puff DAILY INH 04/16/18 09:00 05/16/18 08:59 04/17/18 09:54 Alejandrina Cee MD Apr 17, 2018 10:56
[2018-04-17 12:00] VITALS: BP 115/62
--- NOTE | 2018-04-17 13:06 | Cardiology Progress Note ---
Assessment/Plan Assessment/Plan 1. Dyspnea, most likely due to acute exacerbation of COPD. Will obtain 2D-echo to assess LV systolic and diastolic function. 2. DM, consider ASA and statins. 3. HTN, well controlled with losartan. 4. GERD 5. Anemia. Subjective Subjective She is off monitor. Denies chest pain, SOB is better. Objective Last 24 Hour Vital Signs Date Time Temp Pulse Resp B/P (MAP) Pulse Ox O2 Delivery O2 Flow Rate FiO2 04/17/18 12:00 97.7 79 21 115/62 (79) 95 04/17/18 10:01 78 16 2.0 28 04/17/18 09:57 78 16 94 Nasal Cannula 2.0 28 04/17/18 09:57 78 16 94 Nasal Cannula 2.0 28 04/17/18 09:00 Nasal Cannula 2.0 04/17/18 08:47 111/64 04/17/18 08:00 97.9 75 20 111/64 (80) 94 04/17/18 03:33 79 18 99 Room Air 21 04/17/18 03:23 75 18 98 Room Air 21 04/16/18 21:00 Nasal Cannula 2.0 04/16/18 19:41 95 18 Nasal Cannula 2.0 28 Intake and Output 04/16/18 04/17/18 19:00 07:00 Intake Total 680 ml Balance 680 ml Intake Oral 680 ml # Voids 1 # Bowel Movements 1 1 Laboratory Tests Test 04/16/18 20:45 04/17/18 05:25 04/17/18 11:22 Urine Color Pale yellow Urine Appearance Clear Urine pH 5 (4.5-8.0) Urine Specific [place] 1.010 (1.005-1.035) Urine Protein 2+ (NEGATIVE) H Urine Glucose (UA) Negative (NEGATIVE) Urine Ketones Negative (NEGATIVE) Urine Blood Negative (NEGATIVE) Urine Nitrite Negative (NEGATIVE) Urine Bilirubin Negative (NEGATIVE) Urine Urobilinogen Normal MG/DL (0.0-1.0) Urine Leukocyte Esterase 1+ (NEGATIVE) H Urine RBC 0 /HPF (0 - 0) Urine WBC 0-2 /HPF (0 - 0) Urine Squamous Epithelial Cells None /LPF (NONE/OCC) Urine Bacteria Few /HPF (NONE) Urine Eosinophils None seen (NONE SEEN) Urine Random Sodium < 20 mmol/L (20-110) L Urine Potassium Timed 18 mmol/L (12-62) White Blood Count 15.2 K/UL (4.8-10.8) H Red Blood Count 3.08 M/UL (4.70-6.10) L Hemoglobin 8.6 G/DL (14.2-18.0) L Hematocrit 26.1 % (42.0-52.0) L Mean Corpuscular Volume 85 FL (80-99) Mean Corpuscular Hemoglobin 28.0 PG (27.0-31.0) Mean Corpuscular Hemoglobin Concent 33.1 G/DL (32.0-36.0) Red Cell Distribution Width 15.6 % (11.6-14.8) H Platelet Count 499 K/UL (150-450) H Mean Platelet Volume 6.2 FL (6.5-10.1) L Neutrophils (%) (Auto) % (45.0-75.0) Lymphocytes (%) (Auto) % (20.0-45.0) Monocytes (%) (Auto) % (1.0-10.0) Eosinophils (%) (Auto) % (0.0-3.0) Basophils (%) (Auto) % (0.0-2.0) Differential Total Cells Counted 100 Neutrophils % (Manual) 90 % (45-75) H Lymphocytes % (Manual) 5 % (20-45) L Monocytes % (Manual) 5 % (1-10) Eosinophils % (Manual) 0 % (0-3) Basophils % (Manual) 0 % (0-2) Band Neutrophils 0 % (0-8) Platelet Estimate Adequate Platelet Morphology Normal Hypochromasia 1+ Anisocytosis 1+ Sodium Level 137 MMOL/L (136-145) Potassium Level 4.3 MMOL/L (3.5-5.1) Chloride Level 101 MMOL/L (98-107) Carbon Dioxide Level 25 MMOL/L (21-32) Anion Gap 11 mmol/L (5-15) Blood Urea Nitrogen 74 mg/dL (7-18) H Creatinine 1.8 MG/DL (0.55-1.30) H Estimat Glomerular Filtration Rate mL/min (>60) Glucose Level 179 MG/DL (74-106) H Calcium Level 9.5 MG/DL (8.5-10.1) Urine Random Total Protein 67 MG/DL (< 11.9) H Urine Creatinine 61.0 MG/DL (30.0-125.0) Microbiology Date/Time Source Procedure Growth Status 04/17/18 11:31 Nasopharynx Influenza Types A,B Antigen (FREDA) - Final Complete Objective HEENT: atraumatic, normocephalic, PERRLA, EOMI. Neck: normal JVP, no carotid bruit. Respiratory: Diminished BS both lungs Cardiovascular: Distant heart sounds, regular rate and rhythm Gastrointestinal: normal inspection, normal bowel sounds, non tender, soft, no guarding, no hernia Musculoskeletal: no edema, clubbing or cyanosis. Ralph Jo MD Apr 17, 2018 13:06
--- NOTE | 2018-04-17 13:43 | General Progress Note ---
Assessment/Plan Problem List: (1) Pneumonia ICD Codes: J18.9 - Pneumonia, unspecified organism SNOMED: 872616465 (2) CKD (chronic kidney disease) ICD Codes: N18.9 - Chronic kidney disease, unspecified SNOMED: 474671530 (3) ATN (acute tubular necrosis) ICD Codes: N17.0 - Acute kidney failure with tubular necrosis SNOMED: 41935180 (4) Hypertension ICD Codes: I10 - Essential (primary) hypertension SNOMED: 81658053 Status: unchanged Assessment/Plan o2 pulm tx abx ot pt diet cbc bmp am Subjective Constitutional: Reports: weakness Allergies: Coded Allergies: RISPERIDONE (Verified Allergy, Intermediate, 04/27/16) All Systems: reviewed and negative except above Subjective calm in bed Objective Last 24 Hour Vital Signs Date Time Temp Pulse Resp B/P (MAP) Pulse Ox O2 Delivery O2 Flow Rate FiO2 04/17/18 12:00 97.7 79 21 115/62 (79) 95 04/17/18 10:01 78 16 2.0 28 04/17/18 09:57 78 16 94 Nasal Cannula 2.0 28 04/17/18 09:57 78 16 94 Nasal Cannula 2.0 28 04/17/18 09:00 Nasal Cannula 2.0 04/17/18 08:47 111/64 04/17/18 08:00 97.9 75 20 111/64 (80) 94 04/17/18 03:33 79 18 99 Room Air 21 04/17/18 03:23 75 18 98 Room Air 21 04/16/18 21:00 Nasal Cannula 2.0 04/16/18 19:41 95 18 Nasal Cannula 2.0 28 Intake and Output 04/16/18 04/17/18 19:00 07:00 Intake Total 680 ml Balance 680 ml Intake Oral 680 ml # Voids 1 # Bowel Movements 1 1 Laboratory Tests 04/16/18 20:45: Urine Color Pale yellow, Urine Appearance Clear, Urine pH 5, Urine Specific [place] 1.010, Urine Protein 2+H, Urine Glucose (UA) Negative, Urine Ketones Negative, Urine Blood Negative, Urine Nitrite Negative, Urine Bilirubin Negative , Urine Urobilinogen Normal, Urine Leukocyte Esterase 1+H, Urine RBC 0, Urine WBC 0-2, Urine Squamous Epithelial Cells None, Urine Bacteria Few, Urine Eosinophils None seen, Urine Random Sodium < 20L, Urine Potassium Timed 18 04/17/18 05:25: White Blood Count 15.2H, Red Blood Count 3.08L, Hemoglobin 8.6L, Hematocrit 26.1L, Mean Corpuscular Volume 85, Mean Corpuscular Hemoglobin 28.0, Mean Corpuscular Hemoglobin Concent 33.1, Red Cell Distribution Width 15.6H, Platelet Count 499H, Mean Platelet Volume 6.2L, Neutrophils (%) (Auto) , Lymphocytes (%) (Auto) , Monocytes (%) (Auto) , Eosinophils (%) (Auto) , Basophils (%) (Auto) , Differential Total Cells Counted 100, Neutrophils % ( Manual) 90H, Lymphocytes % (Manual) 5L, Monocytes % (Manual) 5, Eosinophils % ( Manual) 0, Basophils % (Manual) 0, Band Neutrophils 0, Platelet Estimate Adequate, Platelet Morphology Normal, Hypochromasia 1+, Anisocytosis 1+, Sodium Level 137, Potassium Level 4.3, Chloride Level 101, Carbon Dioxide Level 25, Anion Gap 11, Blood Urea Nitrogen 74H, Creatinine 1.8H, Estimat Glomerular Filtration Rate , Glucose Level 179H, Calcium Level 9.5 04/17/18 11:22: Urine Random Total Protein 67H, Urine Creatinine 61.0 Height (Feet): 5 Height (Inches): 10.00 Weight (Pounds): 132 General Appearance: lethargic EENT: normal ENT inspection Neck: normal alignment Cardiovascular: normal peripheral pulses, normal rate, regular rhythm Respiratory/Chest: chest wall non-tender, decreased breath sounds Abdomen: normal bowel sounds, non tender, soft Extremities: normal inspection Edema: no edema noted Arm (L), no edema noted Arm (R), no edema noted Leg (L), no edema noted Leg (R), no edema noted Pedal (L), no edema noted Pedal (R), no edema noted Generalized Neurologic: motor weakness Skin: normal pigmentation, warm/dry Leland Joseph DO Apr 17, 2018 13:43
--- NOTE | 2018-04-17 14:43 | Diagnostic Imaging Report ---
Indication: Cough Technique: One view of the chest Comparison: 04/27/2016 Findings: There is interstitial disease in the right upper lobe, left suprahilar region, which appears increased from the previous exam. There is some scarring or atelectasis at both lung bases. The left lower lobe appears hyperinflated. The heart size is normal. Impression: Right upper lobe and left suprahilar interstitial opacities. Uncertain as to whether these represent progressive chronic interstitial fibrotic changes versus acute infiltrates. Bilateral basilar scarring or atelectasis COPD changes This agrees with the preliminary interpretation provided overnight by [facility] teleradiology service.
[2018-04-17 16:00] VITALS: BP 90/52
[2018-04-17] MEDS ORDERED: Nitroglycerin Subl 0.4mg tab SL PRN (17:45)
[2018-04-17] MEDS ORDERED: LORazepam 0.5mg tab ORAL PRN (18:00)
[2018-04-17] MEDS ORDERED: Promethazine/Codeine 5ml UD ORAL PRN (18:15)
[2018-04-17 20:00] VITALS: BP 100/54
[2018-04-17] MEDS: Docusate 100mg cap ORAL SCH (22:04)
[2018-04-18] VITALS: BP 89/45
--- NOTE | 2018-04-18 02:00 | Consultation ---
DATE OF CONSULTATION: 04/17/2018 NEPHROLOGY CONSULTATION CONSULTING PHYSICIAN: Cecelia Quintana M.D. REFERRING PHYSICIAN: Leland Joseph D.O. REASON FOR CONSULTATION: Acute renal failure and hypokalemia. HISTORY OF PRESENT ILLNESS: The patient is a pleasant 83-year-old male with past medical history significant for history of COPD, history of hypertension, history of BPH, history of chronic kidney disease, baseline creatinine is unknown, [facility] for evaluation of shortness of breath, hypotension, and fevers. A chest x-ray in the ER revealed bibasilar infiltrate. He also was found to have a creatinine of 2.4. Also, the potassium was 3.3, the patient was admitted in step-down unit. I was called for management of renal disease and electrolyte imbalance. PAST MEDICAL HISTORY: Includin. History of hypertension. 2. History of COPD, he smoked from the age of 13 to 16. 3. History of diabetes. 4. History of anemia. 5. History of GERD. 6. History of peripheral vascular disease. HOME MEDICATIONS: Includin. Aspirin 81 mg daily. 2. Atorvastatin. 3. Lipitor 80 mg daily. 4. Tums one tablet p.o. daily. 5. Vitamin D 400 mg daily. 6. Cardura 6 mg daily. 7. Cardura 4 mg daily. 8. Prevacid 30 mg daily. 9. Losartan 50 mg daily. 10. Ambien one tablet p.o. daily. 11. Prednisone 60 mg p.o. daily. 12. Spiriva two puffs b.i.d. 13. Diazepam p.r.n. CODE STATUS: DNR. SOCIAL HISTORY: [facility]. He has a former history of smoking. FAMILY HISTORY: Noncontributory. REVIEW OF SYSTEMS: GENERAL: He complained of generalized weakness. Denies any fever, chills, or night sweats. HEAD AND NECK: Denies any dysphagia, odynophagia, blurry vision, headache, or neck stiffness. PULMONARY: Complained of shortness of breath, cough, and yellow sputum. CARDIOVASCULAR: Denies any chest pain or palpitations. GASTROINTESTINAL: Denies any nausea, vomiting, diarrhea, hematemesis, or hematochezia. GENITOURINARY: Denies any dysuria, frequency, or hematuria. PHYSICAL EXAMINATION: VITAL SIGNS: The patient had temperature of 98, respiratory rate of 17, and blood pressure of 123/72. HEAD AND NECK: No JVD. No LAD. No thyromegaly. Extraocular movement intact. Pupils are reactive to light and accommodation. LUNGS: Clear to auscultation. CARDIAC: Regular rate and rhythm. S1 and S2. No murmur. No rub. ABDOMEN: Soft, nontender, and nondistended. No organomegaly. EXTREMITIES: Trace edema. No clubbing. No cyanosis. Cranial nerves II through XII within normal limit. Upper and lower extremities are grossly intact. LABORATORY VALUES: Sodium 137, potassium 4.3, chloride , creatinine down from 2.4 to 1.8, glucose of 179, and calcium of 9.5. BNP is 3987. Albumin of 2.1 and globulin of 6. UA revealed specific gravity of 1.010, protein 2+, leukocyte esterase 1+, and WBC 0 to 2. CBC revealed WBC count of 15,000, hemoglobin of 8.6, hematocrit of 26, and platelet count of 449,000. ASSESSMENT: 1. Acute renal failure. The etiology of acute renal failure due to unstable hemodynamics. 2. 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 3. Hypokalemia. 4. Malnutrition. 5. Dehydration. PLAN: Plan for the patient to obtain UA. Check the random urine protein and creatinine ratio to calculate the proteinuria. Check the urine sodium and creatinine to calculate fractional excretion of sodium. Ultrasound of the kidney to evaluate the kidney size, so I would check the urine for eosinophils. I would also do a scan of the bladder and monitor electrolytes closely. At the end, I would like to thank, Dr. Joseph for allowing me to participate in the care of this patient. Cecelia Quintana M.D. DR: FRANCIS JOB#: [id number] CC:
[2018-04-18 08:28] LABS: HEMOGLOBIN 9.1 G/DL (14.2-18.0); MEAN CORPUSCULAR VOLUME 86 FL (80-99); PLATELET COUNT 573 K/UL (150-450); RED BLOOD COUNT 3.26 M/UL (4.70-6.10); RED CELL DISTRIBUTION WIDTH 16.2 % (11.6-14.8); WHITE BLOOD COUNT 17.4 K/UL (4.8-10.8)
[2018-04-18 08:30] VITALS: BP 97/51
[2018-04-18] MEDS: Theophylline ER 100mg ORAL SCH ×2 (08:48→21:03)
[2018-04-18] MEDS: Docusate 100mg cap ORAL SCH ×2 (08:49→18:48)
[2018-04-18] MEDS: Doxazosin 4mg tab ORAL SCH (08:49)
[2018-04-18] MEDS: Heparin 5000 units/ml inj SUBQ SCH ×2 (08:50→21:00)
[2018-04-18 08:51] LABS: ANION GAP 11 mmol/L (5-15); BLOOD UREA NITROGEN 59 mg/dL (7-18); CARBON DIOXIDE 25 MMOL/L (21-32); CHLORIDE 102 MMOL/L (98-107); CREATININE 1.8 MG/DL (0.55-1.30); POTASSIUM 4.9 MMOL/L (3.5-5.1); SODIUM 138 MMOL/L (136-145)
[2018-04-18] MEDS ORDERED: Levofloxacin 500mg tab ORAL SCH (09:00)
[2018-04-18] MEDS: Losartan 50mg tab ORAL SCH (09:00)
--- NOTE | 2018-04-18 11:13 | General Progress Note ---
Assessment/Plan Problem List: (1) Pneumonia ICD Codes: J18.9 - Pneumonia, unspecified organism SNOMED: 144769518 (2) CKD (chronic kidney disease) ICD Codes: N18.9 - Chronic kidney disease, unspecified SNOMED: 512911033 (3) ATN (acute tubular necrosis) ICD Codes: N17.0 - Acute kidney failure with tubular necrosis SNOMED: 67869466 (4) Hypertension ICD Codes: I10 - Essential (primary) hypertension SNOMED: 67033722 Status: unchanged Assessment/Plan o2 pulm tx abx ot pt diet cbc bmp am Subjective Constitutional: Reports: weakness Allergies: Coded Allergies: RISPERIDONE (Verified Allergy, Intermediate, 04/27/16) All Systems: reviewed and negative except above Subjective o2nc calm in bed Objective Last 24 Hour Vital Signs Date Time Temp Pulse Resp B/P (MAP) Pulse Ox O2 Delivery O2 Flow Rate FiO2 04/18/18 09:43 83 18 95 Room Air 21 04/18/18 09:43 73 16 95 Room Air 21 04/18/18 09:00 97/51 04/18/18 09:00 Nasal Cannula 2.0 04/18/18 08:30 98.6 88 16 97/51 (66) 100 04/18/18 00:00 97.0 85 19 89/45 (60) 100 04/17/18 21:33 80 18 Room Air 21 04/17/18 21:00 Nasal Cannula 2.0 04/17/18 20:00 98.0 76 18 100/54 (69) 95 04/17/18 16:11 91 18 95 Room Air 21 04/17/18 16:00 98.1 91 21 90/52 (65) 97 04/17/18 15:52 80 16 95 Nasal Cannula 2.0 28 04/17/18 15:50 80 16 95 Nasal Cannula 2.0 28 04/17/18 12:00 97.7 79 21 115/62 (79) 95 Intake and Output 04/17/18 04/18/18 19:00 07:00 Intake Total 360 ml 590 ml Output Total 300 ml Balance 360 ml 290 ml Intake Oral 360 ml 590 ml Output Urine Total 300 ml # Voids 2 Laboratory Tests 04/17/18 11:22: Urine Random Total Protein 67H, Urine Creatinine 61.0 04/18/18 06:25: Urine Random Creatinine [Pending], Urine Random Microalbumin [Pending], Urine Microalbumin/Creatinine Ratio [Pending] 04/18/18 08:11: White Blood Count 17.4H, Red Blood Count 3.26L, Hemoglobin 9.1L, Hematocrit 28.0L, Mean Corpuscular Volume 86, Mean Corpuscular Hemoglobin 27.8, Mean Corpuscular Hemoglobin Concent 32.4, Red Cell Distribution Width 16.2H, Platelet Count 573H, Mean Platelet Volume 6.0L, Neutrophils (%) (Auto) , Lymphocytes (%) (Auto) , Monocytes (%) (Auto) , Eosinophils (%) (Auto) , Basophils (%) (Auto) , Differential Total Cells Counted 100, Neutrophils % ( Manual) 87H, Lymphocytes % (Manual) 7L, Monocytes % (Manual) 6, Eosinophils % ( Manual) 0, Basophils % (Manual) 0, Band Neutrophils 0, Platelet Estimate IncreasedH, Platelet Morphology Normal, Hypochromasia 2+, Anisocytosis 1+, Sodium Level 138, Potassium Level 4.9, Chloride Level 102, Carbon Dioxide Level 25, Anion Gap 11, Blood Urea Nitrogen 59H, Creatinine 1.8H, Estimat Glomerular Filtration Rate , Glucose Level 224H, Calcium Level 10.0 Height (Feet): 5 Height (Inches): 10.00 Weight (Pounds): 132 General Appearance: lethargic EENT: normal ENT inspection Neck: normal alignment Cardiovascular: normal peripheral pulses, normal rate, regular rhythm Respiratory/Chest: chest wall non-tender, decreased breath sounds Abdomen: normal bowel sounds, non tender, soft Extremities: normal inspection Edema: no edema noted Arm (L), no edema noted Arm (R), no edema noted Leg (L), no edema noted Leg (R), no edema noted Pedal (L), no edema noted Pedal (R), no edema noted Generalized Neurologic: motor weakness Skin: normal pigmentation, warm/dry Leland Joseph DO Apr 18, 2018 11:13
--- NOTE | 2018-04-18 12:46 | Infectious Diseases Prog Note ---
Assessment/Plan Assessment/Plan Assessment: PNA (+cough, fever, SOB) -CXR Right upper lobe and left suprahilar interstitial opacities. Uncertain as to whether these represent progressive chronic interstitial fibrotic changes versus acute infiltrates. Bilateral basilar scarring or atelectasis. COPD changes -sp cx GPC , GNB -influenz sc neg Fever, PULMONOLOGIST INTENSIVIST - none here Leukocytosis, increased ( on steroids) PETER on CKD, improving COPD DM HTN anemia GERD BPH PVD cachectic DNR detention resident Plan: -Continue PO Levaquin and Linezolid #3 for PNA pending cultures -monitor Plts -04/16 SP Augmentin #1 -f/u sp cx -f/u cx -Monitor CBC/CMP, temperatures Thank you for this consultation. Will continue to follow along with you. Discussed with RN Subjective Allergies: Coded Allergies: RISPERIDONE (Verified Allergy, Intermediate, 04/27/16) Subjective afebrile wbc increased (on steroids) Objective Vital Signs Last 24 Hour Vital Signs Date Time Temp Pulse Resp B/P (MAP) Pulse Ox O2 Delivery O2 Flow Rate FiO2 04/18/18 09:43 83 18 95 Room Air 21 04/18/18 09:43 73 16 95 Room Air 21 04/18/18 09:00 97/51 04/18/18 09:00 Nasal Cannula 2.0 04/18/18 08:30 98.6 88 16 97/51 (66) 100 04/18/18 00:00 97.0 85 19 89/45 (60) 100 04/17/18 21:33 80 18 Room Air 21 04/17/18 21:00 Nasal Cannula 2.0 04/17/18 20:00 98.0 76 18 100/54 (69) 95 04/17/18 16:11 91 18 95 Room Air 21 04/17/18 16:00 98.1 91 21 90/52 (65) 97 04/17/18 15:52 80 16 95 Nasal Cannula 2.0 28 04/17/18 15:50 80 16 95 Nasal Cannula 2.0 28 Height (Feet): 5 Height (Inches): 10.00 Weight (Pounds): 132 Objective General Appearance: cachetic Lines, tubes and drains: peripheral HEENT: normocephalic, atraumatic Neck: non-tender, normal alignment Respiratory/Chest: chest wall non-tender Cardiovascular/Chest: normal peripheral pulses, normal rate Abdomen: normal bowel sounds, soft Extremities: normal range of motion, non-tender Neurologic: dip painter II-XII grossly normal Microbiology Date/Time Source Procedure Growth Status 04/16/18 07:31 Blood Blood Culture - Preliminary NO GROWTH AFTER 24 HOURS Resulted 04/16/18 07:16 Blood Blood Culture - Preliminary NO GROWTH AFTER 24 HOURS Resulted 04/17/18 11:31 Nasopharynx Influenza Types A,B Antigen (FREDA) - Final Complete 04/16/18 21:00 Sputum Induced Gram Stain - Final Resulted 04/16/18 21:00 Sputum Culture - Preliminary Gram Positive Cocci Gram Negative Bacillus 1 Resulted Laboratory Tests Test 04/18/18 06:25 04/18/18 08:11 Urine Random Creatinine Pending Urine Random Microalbumin Pending Urine Microalbumin/Creatinine Ratio Pending White Blood Count 17.4 K/UL (4.8-10.8) H Red Blood Count 3.26 M/UL (4.70-6.10) L Hemoglobin 9.1 G/DL (14.2-18.0) L Hematocrit 28.0 % (42.0-52.0) L Mean Corpuscular Volume 86 FL (80-99) Mean Corpuscular Hemoglobin 27.8 PG (27.0-31.0) Mean Corpuscular Hemoglobin Concent 32.4 G/DL (32.0-36.0) Red Cell Distribution Width 16.2 % (11.6-14.8) H Platelet Count 573 K/UL (150-450) H Mean Platelet Volume 6.0 FL (6.5-10.1) L Neutrophils (%) (Auto) % (45.0-75.0) Lymphocytes (%) (Auto) % (20.0-45.0) Monocytes (%) (Auto) % (1.0-10.0) Eosinophils (%) (Auto) % (0.0-3.0) Basophils (%) (Auto) % (0.0-2.0) Differential Total Cells Counted 100 Neutrophils % (Manual) 87 % (45-75) H Lymphocytes % (Manual) 7 % (20-45) L Monocytes % (Manual) 6 % (1-10) Eosinophils % (Manual) 0 % (0-3) Basophils % (Manual) 0 % (0-2) Band Neutrophils 0 % (0-8) Platelet Estimate Increased H Platelet Morphology Normal Hypochromasia 2+ Anisocytosis 1+ Sodium Level 138 MMOL/L (136-145) Potassium Level 4.9 MMOL/L (3.5-5.1) Chloride Level 102 MMOL/L (98-107) Carbon Dioxide Level 25 MMOL/L (21-32) Anion Gap 11 mmol/L (5-15) Blood Urea Nitrogen 59 mg/dL (7-18) H Creatinine 1.8 MG/DL (0.55-1.30) H Estimat Glomerular Filtration Rate mL/min (>60) Glucose Level 224 MG/DL (74-106) H Calcium Level 10.0 MG/DL (8.5-10.1) Current Medications Medications (Trade) Dose Ordered Sig/Amish Route PRN Reason Start Time Stop Time Status Last Admin Dose Admin Albuterol/ Ipratropium (Albuterol/ Ipratropium) 3 ml Q4H PRN HHN dyspnea 04/17/18 18:15 04/21/18 06:14 Dextrose (Dextrose 50%) 25 ml Q30M PRN IV Hypoglycemia 04/17/18 18:15 05/16/18 06:14 Dextrose (Dextrose 50%) 50 ml Q30M PRN IV Hypoglycemia 04/17/18 18:15 05/16/18 06:14 Docusate Sodium (Colace) 100 mg TWICE A DAY ORAL 04/17/18 22:00 05/17/18 21:59 04/18/18 08:49 Doxazosin Mesylate (Cardura) 4 mg DAILY ORAL 04/18/18 09:00 05/16/18 08:59 04/18/18 08:49 Heparin Sodium (Porcine) (Heparin 5000 units/ml) 5,000 units EVERY 12 HOURS SUBQ 04/17/18 21:00 05/16/18 08:59 04/18/18 08:50 Levofloxacin (Levaquin) 750 mg EVERY OTHER DAY ORAL 04/18/18 09:00 04/23/18 16:59 04/18/18 08:47 Linezolid (Zyvox) 600 mg EVERY 12 HOURS ORAL 04/17/18 21:00 04/21/18 17:59 04/18/18 08:51 Lorazepam (Ativan) 0.5 mg DAILYPRN PRN ORAL For Anxiety 04/17/18 18:00 04/24/18 17:59 Losartan Potassium (Cozaar) 50 mg DAILY ORAL 04/18/18 09:00 05/16/18 08:59 Nitroglycerin (Ntg) 0.4 mg Q5M X 3 DOSES PRN SL Prn Chest Pain 04/17/18 17:45 05/16/18 06:14 Prednisone (predniSONE) 40 mg DAILY ORAL 04/18/18 09:00 05/16/18 11:59 04/18/18 08:49 Promethazine HCl/ Codeine (Phenergan with Codeine) 5 ml Q6H PRN ORAL cough 04/17/18 18:15 05/16/18 06:14 Temazepam (Restoril) 15 mg HSPRN PRN ORAL Insomnia 04/17/18 21:00 04/24/18 20:59 Theophylline (Nader-Dur) 100 mg EVERY 12 HOURS ORAL 04/17/18 21:00 05/16/18 08:59 04/18/18 08:48 Tiotropium [place] (Spiriva Inhaler) 1 puff DAILY INH 04/18/18 09:00 05/16/18 08:59 04/18/18 09:00 Paula Light M.D. Apr 18, 2018 12:46
--- NOTE | 2018-04-18 14:46 | Diagnostic Imaging Report ---
Indication:Elevated Bun and Creatinine. Technique: Grayscale and duplex Doppler imaging of the kidneys performed. Comparison: None Findings: The size, contour, and echogenicity of both kidneys are within normal limits. There is no hydronephrosis. The IVC and urinary bladder are unremarkable. Few small cysts present within the right kidney. Right kidney measures 10 cm. Left kidney measures 10.6 cm. IMPRESSION: No evidence of obstructive nephropathy.
--- NOTE | 2018-04-18 15:44 | Pulmonology Progress Note ---
Assessment/Plan Problems: (1) Acute respiratory failure (2) ATN (acute tubular necrosis) (3) CKD (chronic kidney disease) (4) Severe protein-calorie malnutrition (5) Hypertension (6) PVD (peripheral vascular disease) (7) Emphysema of lung (8) COPD exacerbation Assessment/Plan improving respiratory treatment taper steroids check cultures iv abx dvt prophylaxis pt/ot med/surg Subjective ROS Limited/Unobtainable: No Constitutional: Reports: no symptoms HEENT: Repors: no symptoms Allergies: Coded Allergies: RISPERIDONE (Verified Allergy, Intermediate, 04/27/16) Objective Last 24 Hour Vital Signs Date Time Temp Pulse Resp B/P (MAP) Pulse Ox O2 Delivery O2 Flow Rate FiO2 04/18/18 09:43 83 18 95 Room Air 21 04/18/18 09:43 73 16 95 Room Air 21 04/18/18 09:00 97/51 04/18/18 09:00 Nasal Cannula 2.0 04/18/18 08:30 98.6 88 16 97/51 (66) 100 04/18/18 00:00 97.0 85 19 89/45 (60) 100 04/17/18 21:33 80 18 Room Air 21 04/17/18 21:00 Nasal Cannula 2.0 04/17/18 20:00 98.0 76 18 100/54 (69) 95 04/17/18 16:11 91 18 95 Room Air 21 04/17/18 16:00 98.1 91 21 90/52 (65) 97 04/17/18 15:52 80 16 95 Nasal Cannula 2.0 28 04/17/18 15:50 80 16 95 Nasal Cannula 2.0 28 Intake and Output 04/17/18 04/18/18 19:00 07:00 Intake Total 360 ml 590 ml Output Total 300 ml Balance 360 ml 290 ml Intake Oral 360 ml 590 ml Output Urine Total 300 ml # Voids 2 Objective General Appearance: cachectic Lines, tubes and drains: peripheral HEENT: normocephalic Neck: non-tender Respiratory/Chest: chest wall non-tender, lungs clear Cardiovascular/Chest: normal peripheral pulses Abdomen: normal bowel sounds Genitourinary/Rectal: normal genital exam Extremities: normal range of motion, non-pitting Microbiology Date/Time Source Procedure Growth Status 04/16/18 07:31 Blood Blood Culture - Preliminary NO GROWTH AFTER 24 HOURS Resulted 04/16/18 07:16 Blood Blood Culture - Preliminary NO GROWTH AFTER 24 HOURS Resulted 04/17/18 11:31 Nasopharynx Influenza Types A,B Antigen (FREDA) - Final Complete 04/16/18 21:00 Sputum Induced Gram Stain - Final Resulted 04/16/18 21:00 Sputum Culture - Preliminary Gram Positive Cocci Gram Negative Bacillus 1 Resulted Laboratory Tests 04/18/18 06:25: Urine Random Creatinine [Pending], Urine Random Microalbumin [Pending], Urine Microalbumin/Creatinine Ratio [Pending] 04/18/18 08:11: White Blood Count 17.4H, Red Blood Count 3.26L, Hemoglobin 9.1L, Hematocrit 28.0L, Mean Corpuscular Volume 86, Mean Corpuscular Hemoglobin 27.8, Mean Corpuscular Hemoglobin Concent 32.4, Red Cell Distribution Width 16.2H, Platelet Count 573H, Mean Platelet Volume 6.0L, Neutrophils (%) (Auto) , Lymphocytes (%) (Auto) , Monocytes (%) (Auto) , Eosinophils (%) (Auto) , Basophils (%) (Auto) , Differential Total Cells Counted 100, Neutrophils % ( Manual) 87H, Lymphocytes % (Manual) 7L, Monocytes % (Manual) 6, Eosinophils % ( Manual) 0, Basophils % (Manual) 0, Band Neutrophils 0, Platelet Estimate IncreasedH, Platelet Morphology Normal, Hypochromasia 2+, Anisocytosis 1+, Sodium Level 138, Potassium Level 4.9, Chloride Level 102, Carbon Dioxide Level 25, Anion Gap 11, Blood Urea Nitrogen 59H, Creatinine 1.8H, Estimat Glomerular Filtration Rate , Glucose Level 224H, Calcium Level 10.0 Current Medications Medications (Trade) Dose Ordered Sig/Amish Route PRN Reason Start Time Stop Time Status Last Admin Dose Admin Albuterol/ Ipratropium (Albuterol/ Ipratropium) 3 ml Q4H PRN HHN dyspnea 04/17/18 18:15 04/21/18 06:14 Dextrose (Dextrose 50%) 25 ml Q30M PRN IV Hypoglycemia 04/17/18 18:15 05/16/18 06:14 Dextrose (Dextrose 50%) 50 ml Q30M PRN IV Hypoglycemia 04/17/18 18:15 05/16/18 06:14 Docusate Sodium (Colace) 100 mg TWICE A DAY ORAL 04/17/18 22:00 05/17/18 21:59 04/18/18 08:49 Doxazosin Mesylate (Cardura) 4 mg DAILY ORAL 04/18/18 09:00 05/16/18 08:59 04/18/18 08:49 Heparin Sodium (Porcine) (Heparin 5000 units/ml) 5,000 units EVERY 12 HOURS SUBQ 04/17/18 21:00 05/16/18 08:59 04/18/18 08:50 Levofloxacin (Levaquin) 750 mg EVERY OTHER DAY ORAL 04/18/18 09:00 04/23/18 16:59 04/18/18 08:47 Linezolid (Zyvox) 600 mg EVERY 12 HOURS ORAL 04/17/18 21:00 04/21/18 17:59 04/18/18 08:51 Lorazepam (Ativan) 0.5 mg DAILYPRN PRN ORAL For Anxiety 04/17/18 18:00 04/24/18 17:59 Losartan Potassium (Cozaar) 50 mg DAILY ORAL 04/18/18 09:00 05/16/18 08:59 Nitroglycerin (Ntg) 0.4 mg Q5M X 3 DOSES PRN SL Prn Chest Pain 04/17/18 17:45 05/16/18 06:14 Prednisone (predniSONE) 40 mg DAILY ORAL 04/18/18 09:00 05/16/18 11:59 04/18/18 08:49 Promethazine HCl/ Codeine (Phenergan with Codeine) 5 ml Q6H PRN ORAL cough 04/17/18 18:15 05/16/18 06:14 Temazepam (Restoril) 15 mg HSPRN PRN ORAL Insomnia 04/17/18 21:00 04/24/18 20:59 Theophylline (Nader-Dur) 100 mg EVERY 12 HOURS ORAL 04/17/18 21:00 05/16/18 08:59 04/18/18 08:48 Tiotropium [place] (Spiriva Inhaler) 1 puff DAILY INH 04/18/18 09:00 05/16/18 08:59 04/18/18 09:00 Alejandrina Cee MD Apr 18, 2018 15:44
[2018-04-18 16:00] VITALS: BP 102/57
[2018-04-18] MEDS: Albuterol/Ipratropium 3ml neb HHN PRN (16:51)
[2018-04-18 20:00] VITALS: BP 109/64
--- NOTE | 2018-04-18 23:44 | Nephrology Progress Note ---
Assessment/Plan Assessment 1. Acute renal failure. 2. 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 3. Hypokalemia. 4. Malnutrition. 5. Dehydration. Plan continue current med monitoring renal function avoid NSAID Subjective Constitutional: Reports: no symptoms HEENT: Reports: no symptoms Neurologic/Psychiatric: Reports: no symptoms Subjective alert and awake no complaints pt was seen earlier this morning Objective Objective Last 24 Hour Vital Signs Date Time Temp Pulse Resp B/P (MAP) Pulse Ox O2 Delivery O2 Flow Rate FiO2 04/18/18 21:00 Nasal Cannula 2.0 04/18/18 20:00 97.1 87 20 109/64 (79) 99 04/18/18 16:51 82 18 99 Room Air 21 04/18/18 16:42 78 18 96 Nasal Cannula 2.0 28 04/18/18 16:00 97.3 80 18 102/57 (72) 96 04/18/18 09:43 83 18 95 Room Air 21 04/18/18 09:43 73 16 95 Room Air 21 04/18/18 09:00 97/51 04/18/18 09:00 Nasal Cannula 2.0 04/18/18 08:30 98.6 88 16 97/51 (66) 100 04/18/18 00:00 97.0 85 19 89/45 (60) 100 Intake and Output 04/17/18 04/18/18 19:00 07:00 Intake Total 360 ml 590 ml Output Total 300 ml Balance 360 ml 290 ml Intake Oral 360 ml 590 ml Output Urine Total 300 ml # Voids 2 Laboratory Tests 04/18/18 06:25: Urine Random Creatinine [Pending], Urine Random Microalbumin [Pending], Urine Microalbumin/Creatinine Ratio [Pending] 04/18/18 08:11: White Blood Count 17.4H, Red Blood Count 3.26L, Hemoglobin 9.1L, Hematocrit 28.0L, Mean Corpuscular Volume 86, Mean Corpuscular Hemoglobin 27.8, Mean Corpuscular Hemoglobin Concent 32.4, Red Cell Distribution Width 16.2H, Platelet Count 573H, Mean Platelet Volume 6.0L, Neutrophils (%) (Auto) , Lymphocytes (%) (Auto) , Monocytes (%) (Auto) , Eosinophils (%) (Auto) , Basophils (%) (Auto) , Differential Total Cells Counted 100, Neutrophils % ( Manual) 87H, Lymphocytes % (Manual) 7L, Monocytes % (Manual) 6, Eosinophils % ( Manual) 0, Basophils % (Manual) 0, Band Neutrophils 0, Platelet Estimate IncreasedH, Platelet Morphology Normal, Hypochromasia 2+, Anisocytosis 1+, Sodium Level 138, Potassium Level 4.9, Chloride Level 102, Carbon Dioxide Level 25, Anion Gap 11, Blood Urea Nitrogen 59H, Creatinine 1.8H, Estimat Glomerular Filtration Rate , Glucose Level 224H, Calcium Level 10.0 Height (Feet): 5 Height (Inches): 10.00 Weight (Pounds): 132 Objective HEAD AND NECK: No JVD. No LAD. No thyromegaly. Extraocular movement intact. Pupils are reactive to light and accommodation. LUNGS: Clear to auscultation. CARDIAC: Regular rate and rhythm. S1 and S2. No murmur. No rub. ABDOMEN: Soft, nontender, and nondistended. No organomegaly. EXTREMITIES: Trace edema. No clubbing. No cyanosis. Cranial nerves II through XII within normal limit. Upper and lower extremities are grossly intact. Cecelia Quintana MD Apr 18, 2018 23:44
--- NOTE | 2018-04-18 23:51 | Cardiology Progress Note ---
Assessment/Plan Assessment/Plan 1. Dyspnea, most likely due to acute exacerbation of COPD. refused 2D-echo. 2. DM, consider ASA and statins. 3. HTN, well controlled with losartan. 4. GERD 5. Anemia. Subjective Subjective No cardiac events. Denies chest pain, SOB is better. Objective Last 24 Hour Vital Signs Date Time Temp Pulse Resp B/P (MAP) Pulse Ox O2 Delivery O2 Flow Rate FiO2 04/18/18 21:00 Nasal Cannula 2.0 04/18/18 20:00 97.1 87 20 109/64 (79) 99 04/18/18 16:51 82 18 99 Room Air 21 04/18/18 16:42 78 18 96 Nasal Cannula 2.0 28 04/18/18 16:00 97.3 80 18 102/57 (72) 96 04/18/18 09:43 83 18 95 Room Air 21 04/18/18 09:43 73 16 95 Room Air 21 04/18/18 09:00 97/51 04/18/18 09:00 Nasal Cannula 2.0 04/18/18 08:30 98.6 88 16 97/51 (66) 100 04/18/18 00:00 97.0 85 19 89/45 (60) 100 Intake and Output 04/17/18 04/18/18 19:00 07:00 Intake Total 360 ml 590 ml Output Total 300 ml Balance 360 ml 290 ml Intake Oral 360 ml 590 ml Output Urine Total 300 ml # Voids 2 Laboratory Tests Test 04/18/18 06:25 04/18/18 08:11 Urine Random Creatinine Pending Urine Random Microalbumin Pending Urine Microalbumin/Creatinine Ratio Pending White Blood Count 17.4 K/UL (4.8-10.8) H Red Blood Count 3.26 M/UL (4.70-6.10) L Hemoglobin 9.1 G/DL (14.2-18.0) L Hematocrit 28.0 % (42.0-52.0) L Mean Corpuscular Volume 86 FL (80-99) Mean Corpuscular Hemoglobin 27.8 PG (27.0-31.0) Mean Corpuscular Hemoglobin Concent 32.4 G/DL (32.0-36.0) Red Cell Distribution Width 16.2 % (11.6-14.8) H Platelet Count 573 K/UL (150-450) H Mean Platelet Volume 6.0 FL (6.5-10.1) L Neutrophils (%) (Auto) % (45.0-75.0) Lymphocytes (%) (Auto) % (20.0-45.0) Monocytes (%) (Auto) % (1.0-10.0) Eosinophils (%) (Auto) % (0.0-3.0) Basophils (%) (Auto) % (0.0-2.0) Differential Total Cells Counted 100 Neutrophils % (Manual) 87 % (45-75) H Lymphocytes % (Manual) 7 % (20-45) L Monocytes % (Manual) 6 % (1-10) Eosinophils % (Manual) 0 % (0-3) Basophils % (Manual) 0 % (0-2) Band Neutrophils 0 % (0-8) Platelet Estimate Increased H Platelet Morphology Normal Hypochromasia 2+ Anisocytosis 1+ Sodium Level 138 MMOL/L (136-145) Potassium Level 4.9 MMOL/L (3.5-5.1) Chloride Level 102 MMOL/L (98-107) Carbon Dioxide Level 25 MMOL/L (21-32) Anion Gap 11 mmol/L (5-15) Blood Urea Nitrogen 59 mg/dL (7-18) H Creatinine 1.8 MG/DL (0.55-1.30) H Estimat Glomerular Filtration Rate mL/min (>60) Glucose Level 224 MG/DL (74-106) H Calcium Level 10.0 MG/DL (8.5-10.1) Microbiology Date/Time Source Procedure Growth Status 04/16/18 07:31 Blood Blood Culture - Preliminary NO GROWTH AFTER 24 HOURS Resulted 04/16/18 07:16 Blood Blood Culture - Preliminary NO GROWTH AFTER 24 HOURS Resulted 04/17/18 11:31 Nasopharynx Influenza Types A,B Antigen (FREDA) - Final Complete 04/16/18 21:00 Sputum Induced Gram Stain - Final Resulted 04/16/18 21:00 Sputum Culture - Preliminary Gram Positive Cocci Gram Negative Bacillus 1 Resulted Objective HEENT: atraumatic, normocephalic, PERRLA, EOMI. Neck: normal JVP, no carotid bruit. Respiratory: Diminished BS both lungs Cardiovascular: Distant heart sounds, regular rate and rhythm Gastrointestinal: normal inspection, normal bowel sounds, non tender, soft, no guarding, no hernia Musculoskeletal: no edema, clubbing or cyanosis. Ralph Jo MD Apr 18, 2018 23:51
[2018-04-19] MEDS: Albuterol/Ipratropium 3ml neb HHN PRN ×2 (01:50→08:49)
--- NOTE | 2018-04-19 02:15 | Consultation ---
DATE OF CONSULTATION: 04/17/2018 NOTE: POOR AUDIO. PSYCHOTHERAPY CONSULTATION PROGRESS NOTE CONSULTING PHYSICIAN: Brooks Zaragoza PsyD. TREATING ATTENDING PHYSICIAN: Leland Joseph D.O. HISTORY OF PRESENT ILLNESS: The patient is an 83-year-old male patient from [facility]. The patient was initially brought into the hospital for COPD exacerbation. Apparently, the patient has had shortness of breath. He is weak and lethargic. In the hospital, the patient has been very agitated, irritable, and verbally abusive, and for these reasons, he was referred for psychotherapeutic services. This clinician assessed this patient. The patient was very irritable and agitated, demanding and argumentative. The patient denies suicidal or homicidal thoughts of ideation; however, he is very irritable, stating that he wants to leave immediately. He is highly anxious and impulsive. At this time, the patient continues to receive treatment at this hospital. He has no logical or viable plan for his self-care. The patient is slightly disorganized, confused, and restless. PAST MEDICAL HISTORY: Includes a history of diabetes. ALLERGIES: The patient has allergies to risperidone. SUBSTANCE USE HISTORY: There is no indication of alcohol use or illicit substance use. PSYCHIATRIC HISTORY: The patient does have a history of mental illness, psychosis, anxiety and has been treated with psychotropic medications in the past. SOCIAL HISTORY: This patient is a single 83-year-old male patient from [facility]. Financially sustained by [facility]. MENTAL STATUS EXAMINATION: The patient is alert and oriented to person and place. Mood is irritable. Affect is labile. Thought process, disorganized. Thought content, delusional. Poor attention and concentration. Poor insight, judgment, and impulse control. DIAGNOSIS: Schizoaffective disorder, bipolar type. DISCUSSION: This clinician assessed this patient and assessed the patient's mental status. Provided the patient with reality orientation cognitive function. The patient is confused and disoriented. Oriented to person, place, time, and situation. Also, provided the patient with supportive psychotherapy the patient is very irritable and agitated. Addressed the patient's . Provided the patient with cognitive behavioral therapy lability. Addressed the patient's poor impulse control and severe anxiety very negative and catastrophic thoughts. Provided the patient with coping strategies at this time. Continue with behavioral management. This clinician has reviewed the patient's chart and discussed treatment with treatment team. Brooks Zaragoza PsyD. DR: MAXIM JOB#: [id number] CC:
--- NOTE | 2018-04-19 07:04 | Pulmonology Progress Note ---
Assessment/Plan Assessment/Plan ASSESSMENT MRSA and Pseudomonas PNA COPD exacerbation acute resp failure acute renal failure on CKD due to diabetic nephropathy or HTN nephronsclerosis with +2 proteinuria DM hypokalemia severe protein calorie malnutrition dehydration anemia thrombocytosis PLAN OF CARE [facility] floor CXR with COPD changes abx, per ID recs blood cx negative, influenza screen test negative Sputum cx+Pseudomonas, MRSA O2 HHN prn steroids and taper trial of theophylline a/tussive prn fup with CXR continue Spiriva inhaler BP management with Cardura and ARB renal US no obst pathology monitor renal parameters , lytes, correct lytes prn, avoid nephrotoxics dietary eval PT eval and Rx bowel regimen monitor HH with goal to keep Hgb above 7 thrombocytosis likely due to infectious process/ acute phase reactant , monitor counts consider psych eval - per PMD discretion DNR/DNI status case discussed and evaluated by supervising physician Subjective Allergies: Coded Allergies: RISPERIDONE (Verified Allergy, Intermediate, 04/27/16) Subjective leukocytosis with trend up, no fever creat trending down no signs of resp distress + cough, no hemoptysis, no wheezing behavior aggressive, using profanity words Objective Last 24 Hour Vital Signs Date Time Temp Pulse Resp B/P (MAP) Pulse Ox O2 Delivery O2 Flow Rate FiO2 04/19/18 01:52 81 18 99 Nasal Cannula 2.0 28 04/19/18 01:51 76 18 95 Nasal Cannula 2.0 28 04/18/18 21:00 Nasal Cannula 2.0 04/18/18 20:00 Nasal Cannula 2.0 28 04/18/18 20:00 97.1 87 20 109/64 (79) 99 04/18/18 20:00 96 Nasal Cannula 2.0 28 04/18/18 16:51 82 18 99 Room Air 21 04/18/18 16:42 78 18 96 Nasal Cannula 2.0 28 04/18/18 16:00 97.3 80 18 102/57 (72) 96 04/18/18 09:43 83 18 95 Room Air 21 04/18/18 09:43 73 16 95 Room Air 21 04/18/18 09:00 97/51 04/18/18 09:00 Nasal Cannula 2.0 04/18/18 08:30 98.6 88 16 97/51 (66) 100 Intake and Output 04/18/18 04/19/18 19:00 07:00 Intake Total 600 ml Output Total 500 ml Balance 100 ml Intake Oral 600 ml Output Urine Total 500 ml General Appearance: no acute distress, cachetic, other - awake, anxious HEENT: normocephalic, atraumatic, anicteric, mucous membranes moist Respiratory/Chest: no respiratory distress, decreased breath sounds Cardiovascular: normal peripheral pulses, normal rate, no JVD Abdomen: normal bowel sounds, soft, non tender, non distended Extremities: no edema Neurologic/Psychiatric: alert, responsive, other - anxious Microbiology Date/Time Source Procedure Growth Status 04/16/18 07:31 Blood Blood Culture - Preliminary NO GROWTH AFTER 48 HOURS Resulted 04/16/18 07:16 Blood Blood Culture - Preliminary NO GROWTH AFTER 48 HOURS Resulted 04/17/18 11:31 Nasopharynx Influenza Types A,B Antigen (FREDA) - Final Complete 04/16/18 21:00 Sputum Induced Gram Stain - Final Resulted 04/16/18 21:00 Sputum Culture - Preliminary Gram Positive Cocci Gram Negative Bacillus 1 Resulted Laboratory Tests 04/18/18 08:11: White Blood Count 17.4H, Red Blood Count 3.26L, Hemoglobin 9.1L, Hematocrit 28.0L, Mean Corpuscular Volume 86, Mean Corpuscular Hemoglobin 27.8, Mean Corpuscular Hemoglobin Concent 32.4, Red Cell Distribution Width 16.2H, Platelet Count 573H, Mean Platelet Volume 6.0L, Neutrophils (%) (Auto) , Lymphocytes (%) (Auto) , Monocytes (%) (Auto) , Eosinophils (%) (Auto) , Basophils (%) (Auto) , Differential Total Cells Counted 100, Neutrophils % ( Manual) 87H, Lymphocytes % (Manual) 7L, Monocytes % (Manual) 6, Eosinophils % ( Manual) 0, Basophils % (Manual) 0, Band Neutrophils 0, Platelet Estimate IncreasedH, Platelet Morphology Normal, Hypochromasia 2+, Anisocytosis 1+, Sodium Level 138, Potassium Level 4.9, Chloride Level 102, Carbon Dioxide Level 25, Anion Gap 11, Blood Urea Nitrogen 59H, Creatinine 1.8H, Estimat Glomerular Filtration Rate , Glucose Level 224H, Calcium Level 10.0 Current Medications Medications (Trade) Dose Ordered Sig/Amish Route PRN Reason Start Time Stop Time Status Last Admin Dose Admin Albuterol/ Ipratropium (Albuterol/ Ipratropium) 3 ml Q4H PRN HHN dyspnea 04/17/18 18:15 04/21/18 06:14 04/19/18 01:50 Dextrose (Dextrose 50%) 25 ml Q30M PRN IV Hypoglycemia 04/17/18 18:15 05/16/18 06:14 Dextrose (Dextrose 50%) 50 ml Q30M PRN IV Hypoglycemia 04/17/18 18:15 05/16/18 06:14 Docusate Sodium (Colace) 100 mg TWICE A DAY ORAL 04/17/18 22:00 05/17/18 21:59 04/18/18 18:48 Doxazosin Mesylate (Cardura) 4 mg DAILY ORAL 04/18/18 09:00 05/16/18 08:59 04/18/18 08:49 Heparin Sodium (Porcine) (Heparin 5000 units/ml) 5,000 units EVERY 12 HOURS SUBQ 04/17/18 21:00 05/16/18 08:59 04/18/18 08:50 Levofloxacin (Levaquin) 750 mg EVERY OTHER DAY ORAL 04/18/18 09:00 04/23/18 16:59 04/18/18 08:47 Linezolid (Zyvox) 600 mg EVERY 12 HOURS ORAL 04/17/18 21:00 04/21/18 17:59 04/18/18 21:04 Lorazepam (Ativan) 0.5 mg DAILYPRN PRN ORAL For Anxiety 04/17/18 18:00 04/24/18 17:59 Losartan Potassium (Cozaar) 50 mg DAILY ORAL 04/18/18 09:00 05/16/18 08:59 Nitroglycerin (Ntg) 0.4 mg Q5M X 3 DOSES PRN SL Prn Chest Pain 04/17/18 17:45 05/16/18 06:14 Prednisone (predniSONE) 40 mg DAILY ORAL 04/18/18 09:00 05/16/18 11:59 04/18/18 08:49 Promethazine HCl/ Codeine (Phenergan with Codeine) 5 ml Q6H PRN ORAL cough 04/17/18 18:15 05/16/18 06:14 Temazepam (Restoril) 15 mg HSPRN PRN ORAL Insomnia 04/17/18 21:00 04/24/18 20:59 Theophylline (Nader-Dur) 100 mg EVERY 12 HOURS ORAL 04/17/18 21:00 05/16/18 08:59 04/18/18 21:03 Tiotropium [place] (Spiriva Inhaler) 1 puff DAILY INH 04/18/18 09:00 05/16/18 08:59 04/18/18 09:00 Myrna Cordova NP Apr 19, 2018 07:04
[2018-04-19 08:00] VITALS: BP 110/63
[2018-04-19] MEDS: Theophylline ER 100mg ORAL SCH ×2 (08:33→20:36)
[2018-04-19] MEDS: Docusate 100mg cap ORAL SCH ×2 (08:33→17:37)
[2018-04-19] MEDS: Doxazosin 4mg tab ORAL SCH (08:33)
[2018-04-19] MEDS: Losartan 50mg tab ORAL SCH (08:34)
--- NOTE | 2018-04-19 08:42 | Infectious Diseases Prog Note ---
Assessment/Plan Assessment/Plan PNA (+cough, fever, SOB) -CXR Right upper lobe and left suprahilar interstitial opacities. Uncertain as to whether these represent progressive chronic interstitial fibrotic changes versus acute infiltrates. Bilateral basilar scarring or atelectasis. COPD changes -sp cx GPC , GNB -influenz sc neg Fever, COMPLIANCE SPECIALIST - none here Leukocytosis, increased ( on steroids) PETER on CKD, improving COPD DM HTN anemia GERD BPH PVD cachectic DNR intermediate resident Plan: -Continue PO Levaquin and Linezolid #4/7 for PNA -monitor Plts -04/16 SP Augmentin #1 -f/u sp cx -f/u cx -Monitor CBC/CMP, temperatures Thank you for this consultation. Will continue to follow along with you. Subjective Allergies: Coded Allergies: RISPERIDONE (Verified Allergy, Intermediate, 04/27/16) Subjective Patient with increasing leukocytosis on prednisone Afebrile on 2L NC Objective Vital Signs Last 24 Hour Vital Signs Date Time Temp Pulse Resp B/P (MAP) Pulse Ox O2 Delivery O2 Flow Rate FiO2 04/19/18 08:34 109/64 04/19/18 07:54 88 20 95 Nasal Cannula 2.0 04/19/18 07:54 Nasal Cannula 2.0 28 04/19/18 07:54 95 Nasal Cannula 2.0 28 04/19/18 07:51 89 20 95 Nasal Cannula 2.0 21 04/19/18 01:52 81 18 99 Nasal Cannula 2.0 28 04/19/18 01:51 76 18 95 Nasal Cannula 2.0 28 04/18/18 21:00 Nasal Cannula 2.0 04/18/18 20:00 Nasal Cannula 2.0 28 04/18/18 20:00 97.1 87 20 109/64 (79) 99 04/18/18 20:00 96 Nasal Cannula 2.0 28 04/18/18 16:51 82 18 99 Room Air 21 04/18/18 16:42 78 18 96 Nasal Cannula 2.0 28 04/18/18 16:00 97.3 80 18 102/57 (72) 96 04/18/18 09:43 83 18 95 Room Air 21 04/18/18 09:43 73 16 95 Room Air 21 04/18/18 09:00 97/51 04/18/18 09:00 Nasal Cannula 2.0 Height (Feet): 5 Height (Inches): 10.00 Weight (Pounds): 132 Objective General Appearance: NAD, cachetic HEENT: normocephalic, atraumatic, MMM Respiratory/Chest: chest wall non-tender, course breath sounds Cardiovascular/Chest: normal peripheral pulses, normal rate Abdomen: normal bowel sounds, soft Extremities: normal range of motion, non-tender Neurologic: manager clinic II-XII grossly normal Microbiology Date/Time Source Procedure Growth Status 04/17/18 11:31 Nasopharynx Influenza Types A,B Antigen (FREDA) - Final Complete 04/16/18 21:00 Sputum Induced Gram Stain - Final Complete 04/16/18 21:00 Sputum Culture - Final Staphylococcus Aureus - Mrsa Pseudomonas Aeruginosa Complete Current Medications Medications (Trade) Dose Ordered Sig/Amish Route PRN Reason Start Time Stop Time Status Last Admin Dose Admin Albuterol/ Ipratropium (Albuterol/ Ipratropium) 3 ml Q4H PRN HHN dyspnea 04/17/18 18:15 04/21/18 06:14 04/19/18 01:50 Dextrose (Dextrose 50%) 25 ml Q30M PRN IV Hypoglycemia 04/17/18 18:15 05/16/18 06:14 Dextrose (Dextrose 50%) 50 ml Q30M PRN IV Hypoglycemia 04/17/18 18:15 05/16/18 06:14 Docusate Sodium (Colace) 100 mg TWICE A DAY ORAL 04/17/18 22:00 05/17/18 21:59 04/19/18 08:33 Doxazosin Mesylate (Cardura) 4 mg DAILY ORAL 04/18/18 09:00 05/16/18 08:59 04/19/18 08:33 Heparin Sodium (Porcine) (Heparin 5000 units/ml) 5,000 units EVERY 12 HOURS SUBQ 04/17/18 21:00 05/16/18 08:59 04/18/18 08:50 Levofloxacin (Levaquin) 750 mg EVERY OTHER DAY ORAL 04/18/18 09:00 04/23/18 16:59 04/18/18 08:47 Linezolid (Zyvox) 600 mg EVERY 12 HOURS ORAL 04/17/18 21:00 04/21/18 17:59 04/19/18 08:33 Lorazepam (Ativan) 0.5 mg DAILYPRN PRN ORAL For Anxiety 04/17/18 18:00 04/24/18 17:59 Losartan Potassium (Cozaar) 50 mg DAILY ORAL 04/18/18 09:00 05/16/18 08:59 Nitroglycerin (Ntg) 0.4 mg Q5M X 3 DOSES PRN SL Prn Chest Pain 04/17/18 17:45 05/16/18 06:14 Prednisone (predniSONE) 40 mg DAILY ORAL 04/18/18 09:00 05/16/18 11:59 04/19/18 08:33 Promethazine HCl/ Codeine (Phenergan with Codeine) 5 ml Q6H PRN ORAL cough 04/17/18 18:15 05/16/18 06:14 Temazepam (Restoril) 15 mg HSPRN PRN ORAL Insomnia 04/17/18 21:00 04/24/18 20:59 Theophylline (Nader-Dur) 100 mg EVERY 12 HOURS ORAL 04/17/18 21:00 05/16/18 08:59 04/19/18 08:33 Tiotropium [place] (Spiriva Inhaler) 1 puff DAILY INH 04/18/18 09:00 05/16/18 08:59 04/19/18 07:50 Suraj Elder MD Apr 19, 2018 08:42
--- NOTE | 2018-04-19 08:50 | General Progress Note ---
Assessment/Plan Problem List: (1) Pneumonia ICD Codes: J18.9 - Pneumonia, unspecified organism SNOMED: 815684541 (2) CKD (chronic kidney disease) ICD Codes: N18.9 - Chronic kidney disease, unspecified SNOMED: 733022931 (3) ATN (acute tubular necrosis) ICD Codes: N17.0 - Acute kidney failure with tubular necrosis SNOMED: 07371220 (4) Hypertension ICD Codes: I10 - Essential (primary) hypertension SNOMED: 66228996 Status: unchanged Assessment/Plan o2 pulm tx abx ot pt diet cbc bmp am Subjective Constitutional: Reports: weakness Respiratory: Reports: shortness of breath Allergies: Coded Allergies: RISPERIDONE (Verified Allergy, Intermediate, 04/27/16) All Systems: reviewed and negative except above Subjective o2nc calm in bed Objective Last 24 Hour Vital Signs Date Time Temp Pulse Resp B/P (MAP) Pulse Ox O2 Delivery O2 Flow Rate FiO2 04/19/18 08:34 109/64 04/19/18 07:54 88 20 95 Nasal Cannula 2.0 04/19/18 07:54 Nasal Cannula 2.0 28 04/19/18 07:54 95 Nasal Cannula 2.0 28 04/19/18 07:51 89 20 95 Nasal Cannula 2.0 21 04/19/18 01:52 81 18 99 Nasal Cannula 2.0 28 04/19/18 01:51 76 18 95 Nasal Cannula 2.0 28 04/18/18 21:00 Nasal Cannula 2.0 04/18/18 20:00 Nasal Cannula 2.0 28 04/18/18 20:00 97.1 87 20 109/64 (79) 99 04/18/18 20:00 96 Nasal Cannula 2.0 28 04/18/18 16:51 82 18 99 Room Air 21 04/18/18 16:42 78 18 96 Nasal Cannula 2.0 28 04/18/18 16:00 97.3 80 18 102/57 (72) 96 04/18/18 09:43 83 18 95 Room Air 21 04/18/18 09:43 73 16 95 Room Air 21 04/18/18 09:00 97/51 04/18/18 09:00 Nasal Cannula 2.0 Intake and Output 04/18/18 04/19/18 18:59 06:59 Intake Total 600 ml 120 ml Output Total 500 ml 550 ml Balance 100 ml -430 ml Intake Oral 600 ml 120 ml Output Urine Total 500 ml 550 ml Height (Feet): 5 Height (Inches): 10.00 Weight (Pounds): 132 General Appearance: lethargic EENT: normal ENT inspection Neck: normal alignment Cardiovascular: normal peripheral pulses, normal rate, regular rhythm Respiratory/Chest: chest wall non-tender, decreased breath sounds Abdomen: normal bowel sounds, non tender, soft Extremities: normal inspection Edema: no edema noted Arm (L), no edema noted Arm (R), no edema noted Leg (L), no edema noted Leg (R), no edema noted Pedal (L), no edema noted Pedal (R), no edema noted Generalized Neurologic: responsive, motor weakness Skin: normal pigmentation, warm/dry Leland Joseph DO Apr 19, 2018 08:50
[2018-04-19] MEDS: Heparin 5000 units/ml inj SUBQ SCH ×2 (08:55→20:46)
--- NOTE | 2018-04-19 13:01 | Nephrology Progress Note ---
Assessment/Plan Assessment 1. Acute renal failure. 2. 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 3. Hypokalemia. 4. Malnutrition. 5. Dehydration. Plan continue current med monitoring renal function avoid NSAID Subjective Constitutional: Reports: no symptoms HEENT: Reports: no symptoms Genitourinary: Reports: no symptoms Neurologic/Psychiatric: Reports: no symptoms Subjective alert and awake no complaints no complaints Objective Objective Last 24 Hour Vital Signs Date Time Temp Pulse Resp B/P (MAP) Pulse Ox O2 Delivery O2 Flow Rate FiO2 04/19/18 09:00 78 20 99 Nasal Cannula 2.0 28 04/19/18 09:00 Nasal Cannula 2.0 04/19/18 08:50 74 20 95 Nasal Cannula 2.0 28 04/19/18 08:34 109/64 04/19/18 08:00 96.7 89 18 110/63 (79) 100 04/19/18 07:54 88 20 95 Nasal Cannula 2.0 04/19/18 07:54 Nasal Cannula 2.0 04/19/18 07:54 95 Nasal Cannula 2.0 28 04/19/18 07:51 89 20 95 Nasal Cannula 2.0 04/19/18 01:52 81 18 99 Nasal Cannula 2.0 28 04/19/18 01:51 76 18 95 Nasal Cannula 2.0 28 04/18/18 21:00 Nasal Cannula 2.0 04/18/18 20:00 Nasal Cannula 2.0 28 04/18/18 20:00 97.1 87 20 109/64 (79) 99 04/18/18 20:00 96 Nasal Cannula 2.0 28 04/18/18 16:51 82 18 99 Room Air 21 04/18/18 16:42 78 18 96 Nasal Cannula 2.0 28 04/18/18 16:00 97.3 80 18 102/57 (72) 96 Intake and Output 04/18/18 04/19/18 18:59 06:59 Intake Total 600 ml 120 ml Output Total 500 ml 550 ml Balance 100 ml -430 ml Intake Oral 600 ml 120 ml Output Urine Total 500 ml 550 ml Height (Feet): 5 Height (Inches): 10.00 Weight (Pounds): 132 Objective HEAD AND NECK: No JVD. No LAD. No thyromegaly. Extraocular movement intact. Pupils are reactive to light and accommodation. LUNGS: Clear to auscultation. CARDIAC: Regular rate and rhythm. S1 and S2. No murmur. No rub. ABDOMEN: Soft, nontender, and nondistended. No organomegaly. EXTREMITIES: Trace edema. No clubbing. No cyanosis. Cranial nerves II through XII within normal limit. Upper and lower extremities are grossly intact. Cecelia Quintana MD Apr 19, 2018 13:01
[2018-04-19] MEDS ORDERED: Fleet's Enema 133ml RECTAL PRN (14:00)
[2018-04-19 15:36] LABS: HEMATOCRIT 28.7 % (42.0-52.0); HEMOGLOBIN 9.1 G/DL (14.2-18.0); MEAN CORPUSCULAR VOLUME 87 FL (80-99); PLATELET COUNT 605 K/UL (150-450); RED BLOOD COUNT 3.31 M/UL (4.70-6.10); RED CELL DISTRIBUTION WIDTH 15.9 % (11.6-14.8); WHITE BLOOD COUNT 16.2 K/UL (4.8-10.8)
[2018-04-19 15:45] LABS: ANION GAP 11 mmol/L (5-15); BLOOD UREA NITROGEN 40 mg/dL (7-18); CALCIUM 9.9 MG/DL (8.5-10.1); CARBON DIOXIDE 25 MMOL/L (21-32); CHLORIDE 102 MMOL/L (98-107); CREATININE 1.6 MG/DL (0.55-1.30); POTASSIUM 5.2 MMOL/L (3.5-5.1); SODIUM 138 MMOL/L (136-145)
[2018-04-19 16:00] VITALS: BP 90/54
[2018-04-20] MEDS: Albuterol/Ipratropium 3ml neb HHN PRN (07:49)
[2018-04-20 08:00] VITALS: BP 118/69
--- NOTE | 2018-04-20 08:11 | Pulmonology Progress Note ---
Assessment/Plan Assessment/Plan ASSESSMENT MRSA and Pseudomonas PNA COPD exacerbation acute resp failure acute renal failure on CKD due to diabetic nephropathy or HTN nephronsclerosis with +2 proteinuria DM hypokalemia severe protein calorie malnutrition dehydration anemia thrombocytosis PLAN OF CARE [facility] floor CXR with COPD changes abx, per ID recs blood cx negative, influenza screen test negative Sputum cx+Pseudomonas, MRSA O2 HHN prn steroids and taper trial of theophylline a/tussive prn fup with CXR continue Spiriva inhaler BP management with Cardura and ARB renal US no obst pathology monitor renal parameters , lytes, correct lytes prn, avoid nephrotoxics dietary eval PT eval and Rx bowel regimen monitor HH with goal to keep Hgb above 7 thrombocytosis likely due to infectious process/ acute phase reactant , monitor counts consider psych eval - per PMD discretion DNR/DNI status case discussed and evaluated by supervising physician Subjective Allergies: Coded Allergies: RISPERIDONE (Verified Allergy, Intermediate, 04/27/16) Subjective leukocytosis with trend up 04/19, no fever; declined labs today creat trending down no signs of resp distress + cough, no hemoptysis, no wheezing behavior aggressive, using profanity words Objective Last 24 Hour Vital Signs Date Time Temp Pulse Resp B/P (MAP) Pulse Ox O2 Delivery O2 Flow Rate FiO2 04/20/18 07:59 82 18 97 Nasal Cannula 2.0 28 04/20/18 07:51 84 18 96 Nasal Cannula 2.0 04/20/18 07:50 Nasal Cannula 2.0 28 04/20/18 07:49 96 Nasal Cannula 2.0 28 04/20/18 07:49 84 18 96 Nasal Cannula 2.0 04/20/18 07:49 78 18 96 Nasal Cannula 2.0 28 04/19/18 21:46 Nasal Cannula 2.0 28 04/19/18 21:00 Nasal Cannula 2.0 04/19/18 16:00 96.2 90 18 90/54 (66) 99 04/19/18 09:00 78 20 99 Nasal Cannula 2.0 28 04/19/18 09:00 Nasal Cannula 2.0 04/19/18 08:50 74 20 95 Nasal Cannula 2.0 04/19/18 08:34 109/64 Intake and Output 04/19/18 04/20/18 19:00 07:00 Intake Total 860 ml Balance 860 ml Intake Oral 860 ml # Voids 6 2 # Bowel Movements 6 Objective General Appearance: no acute distress, cachetic, awake, anxious HEENT: normocephalic, atraumatic, anicteric, mucous membranes moist Respiratory/Chest: no respiratory distress, decreased breath sounds Cardiovascular: normal peripheral pulses, normal rate, no JVD Abdomen: normal bowel sounds, soft, non tender, non distended Extremities: no edema Neurologic/Psychiatric: alert, responsive, other - anxious Microbiology Date/Time Source Procedure Growth Status 04/17/18 11:31 Nasopharynx Influenza Types A,B Antigen (FREDA) - Final Complete Laboratory Tests 04/19/18 15:05: White Blood Count 16.2H, Red Blood Count 3.31L, Hemoglobin 9.1L, Hematocrit 28.7L, Mean Corpuscular Volume 87, Mean Corpuscular Hemoglobin 27.6, Mean Corpuscular Hemoglobin Concent 31.9L, Red Cell Distribution Width 15.9H, Platelet Count 605H, Mean Platelet Volume 6.1L, Neutrophils (%) (Auto) , Lymphocytes (%) (Auto) , Monocytes (%) (Auto) , Eosinophils (%) (Auto) , Basophils (%) (Auto) , Differential Total Cells Counted 100, Neutrophils % ( Manual) 85H, Lymphocytes % (Manual) 8L, Monocytes % (Manual) 6, Eosinophils % ( Manual) 0, Basophils % (Manual) 0, Band Neutrophils 1, Platelet Estimate IncreasedH, Platelet Morphology Normal, Hypochromasia 1+, Anisocytosis 1+, Sodium Level 138, Potassium Level 5.2H, Chloride Level 102, Carbon Dioxide Level 25, Anion Gap 11, Blood Urea Nitrogen 40H, Creatinine 1.6H, Estimat Glomerular Filtration Rate , Glucose Level 175H, Calcium Level 9.9 Current Medications Medications (Trade) Dose Ordered Sig/Amish Route PRN Reason Start Time Stop Time Status Last Admin Dose Admin Albuterol/ Ipratropium (Albuterol/ Ipratropium) 3 ml Q4H PRN HHN dyspnea 04/19/18 14:15 04/23/18 02:14 04/20/18 07:49 Bisacodyl (Dulcolax) 10 mg DAILYPRN PRN RECTAL Constipation 04/19/18 09:30 05/19/18 09:29 Dextrose (Dextrose 50%) 25 ml Q30M PRN IV Hypoglycemia 04/17/18 18:15 05/16/18 06:14 Dextrose (Dextrose 50%) 50 ml Q30M PRN IV Hypoglycemia 04/17/18 18:15 05/16/18 06:14 Docusate Sodium (Colace) 100 mg TWICE A DAY ORAL 04/17/18 22:00 05/17/18 21:59 04/19/18 17:37 Doxazosin Mesylate (Cardura) 4 mg DAILY ORAL 04/18/18 09:00 05/16/18 08:59 04/19/18 08:33 Heparin Sodium (Porcine) (Heparin 5000 units/ml) 5,000 units EVERY 12 HOURS SUBQ 04/17/18 21:00 05/16/18 08:59 04/19/18 20:46 Levofloxacin (Levaquin) 750 mg EVERY OTHER DAY ORAL 04/18/18 09:00 04/23/18 16:59 04/18/18 08:47 Linezolid (Zyvox) 600 mg EVERY 12 HOURS ORAL 04/17/18 21:00 04/21/18 17:59 04/19/18 20:36 Lorazepam (Ativan) 0.5 mg DAILYPRN PRN ORAL For Anxiety 04/17/18 18:00 04/24/18 17:59 Losartan Potassium (Cozaar) 50 mg DAILY ORAL 04/18/18 09:00 05/16/18 08:59 Nitroglycerin (Ntg) 0.4 mg Q5M X 3 DOSES PRN SL Prn Chest Pain 04/17/18 17:45 05/16/18 06:14 Prednisone (predniSONE) 30 mg DAILY ORAL 04/20/18 09:00 05/16/18 11:59 Promethazine HCl/ Codeine (Phenergan with Codeine) 5 ml Q6H PRN ORAL cough 04/17/18 18:15 05/16/18 06:14 Sodium Phosphate (Fleet's Sodium Phosl Enema) 133 ml BIDPRN PRN RECTAL Constipation 04/19/18 14:00 05/19/18 13:59 Temazepam (Restoril) 15 mg HSPRN PRN ORAL Insomnia 04/17/18 21:00 04/24/18 20:59 Theophylline (Nader-Dur) 100 mg EVERY 12 HOURS ORAL 04/17/18 21:00 05/16/18 08:59 04/19/18 20:36 Tiotropium [place] (Spiriva Inhaler) 1 puff DAILY INH 04/18/18 09:00 05/16/18 08:59 04/20/18 07:45 Myrna Cordova NP Apr 20, 2018 08:10
--- NOTE | 2018-04-20 08:45 | General Progress Note ---
Assessment/Plan Problem List: (1) Pneumonia ICD Codes: J18.9 - Pneumonia, unspecified organism SNOMED: 662316180 (2) CKD (chronic kidney disease) ICD Codes: N18.9 - Chronic kidney disease, unspecified SNOMED: 721787118 (3) ATN (acute tubular necrosis) ICD Codes: N17.0 - Acute kidney failure with tubular necrosis SNOMED: 68313265 (4) Hypertension ICD Codes: I10 - Essential (primary) hypertension SNOMED: 00484710 Status: unchanged Assessment/Plan o2 pulm tx abx ot pt diet cbc bmp am Subjective Constitutional: Reports: weakness Respiratory: Reports: shortness of breath Allergies: Coded Allergies: RISPERIDONE (Verified Allergy, Intermediate, 04/27/16) All Systems: reviewed and negative except above Subjective o2nc sleepy in bed Objective Last 24 Hour Vital Signs Date Time Temp Pulse Resp B/P (MAP) Pulse Ox O2 Delivery O2 Flow Rate FiO2 04/20/18 07:59 82 18 97 Nasal Cannula 2.0 28 04/20/18 07:51 84 18 96 Nasal Cannula 2.0 04/20/18 07:50 Nasal Cannula 2.0 28 04/20/18 07:49 96 Nasal Cannula 2.0 28 04/20/18 07:49 84 18 96 Nasal Cannula 2.0 04/20/18 07:49 78 18 96 Nasal Cannula 2.0 28 04/19/18 21:46 Nasal Cannula 2.0 28 04/19/18 21:00 Nasal Cannula 2.0 04/19/18 16:00 96.2 90 18 90/54 (66) 99 04/19/18 09:00 78 20 99 Nasal Cannula 2.0 04/19/18 09:00 Nasal Cannula 2.0 04/19/18 08:50 74 20 95 Nasal Cannula 2.0 28 Intake and Output 04/19/18 04/20/18 18:59 06:59 Intake Total 860 ml Balance 860 ml Intake Oral 860 ml # Voids 6 2 # Bowel Movements 6 Laboratory Tests 04/19/18 15:05: White Blood Count 16.2H, Red Blood Count 3.31L, Hemoglobin 9.1L, Hematocrit 28.7L, Mean Corpuscular Volume 87, Mean Corpuscular Hemoglobin 27.6, Mean Corpuscular Hemoglobin Concent 31.9L, Red Cell Distribution Width 15.9H, Platelet Count 605H, Mean Platelet Volume 6.1L, Neutrophils (%) (Auto) , Lymphocytes (%) (Auto) , Monocytes (%) (Auto) , Eosinophils (%) (Auto) , Basophils (%) (Auto) , Differential Total Cells Counted 100, Neutrophils % ( Manual) 85H, Lymphocytes % (Manual) 8L, Monocytes % (Manual) 6, Eosinophils % ( Manual) 0, Basophils % (Manual) 0, Band Neutrophils 1, Platelet Estimate IncreasedH, Platelet Morphology Normal, Hypochromasia 1+, Anisocytosis 1+, Sodium Level 138, Potassium Level 5.2H, Chloride Level 102, Carbon Dioxide Level 25, Anion Gap 11, Blood Urea Nitrogen 40H, Creatinine 1.6H, Estimat Glomerular Filtration Rate , Glucose Level 175H, Calcium Level 9.9 Height (Feet): 5 Height (Inches): 10.00 Weight (Pounds): 132 General Appearance: lethargic EENT: normal ENT inspection Neck: normal alignment Cardiovascular: normal peripheral pulses, normal rate, regular rhythm Respiratory/Chest: chest wall non-tender, decreased breath sounds Abdomen: normal bowel sounds, non tender, soft Extremities: normal inspection Edema: no edema noted Arm (L), no edema noted Arm (R), no edema noted Leg (L), no edema noted Leg (R), no edema noted Pedal (L), no edema noted Pedal (R), no edema noted Generalized Neurologic: motor weakness Skin: normal pigmentation, warm/dry Leland Josephg Apr 20, 2018 08:45
[2018-04-20] MEDS: Docusate 100mg cap ORAL SCH ×2 (09:26→16:58)
[2018-04-20] MEDS: Losartan 50mg tab ORAL SCH (09:26)
[2018-04-20] MEDS: Theophylline ER 100mg ORAL SCH ×2 (09:26→21:26)
[2018-04-20] MEDS: Doxazosin 4mg tab ORAL SCH (09:26)
--- NOTE | 2018-04-20 09:26 | Diagnostic Imaging Report ---
EXAM: XR Chest, 1 View CLINICAL HISTORY: SOB TECHNIQUE: Frontal view of the chest. COMPARISON: Chest x-ray 04/16/18 1644 FINDINGS: Lungs: Hyperinflated lungs of COPD. Interstitial thickening. Previously seen right upper lobe opacities have improved. 2 cm left infrahilar opacity, consider CT for further evaluation. Chronic scarring at the lung bases. There are 3 small calcific granulomas in the right lung. Pleural space: Unremarkable. No pneumothorax. Heart: Unremarkable. No cardiomegaly. Mediastinum: Unremarkable. Bones/joints: Unremarkable. Lymph nodes: Right hilar calcified lymph nodes. IMPRESSION: 1. Hyperinflated lungs of COPD. 2. Interstitial thickening, improved in the right upper lobe compared to prior study. 3. 2 cm left infrahilar opacity, consider CT for further evaluation.
[2018-04-20] MEDS: Heparin 5000 units/ml inj SUBQ SCH ×2 (10:32→21:29)
[2018-04-20 10:55] LABS: BASOPHILS % (AUTO) 0.5 % (0.0-2.0); EOSINOPHILS % (AUTO) 2.3 % (0.0-3.0); HEMATOCRIT 28.8 % (42.0-52.0); HEMOGLOBIN 9.2 G/DL (14.2-18.0); LYMPHOCYTES % (AUTO) 9.1 % (20.0-45.0); MEAN CORPUSCULAR VOLUME 86 FL (80-99); MONOCYTES % (AUTO) 5.2 % (1.0-10.0); NEUTROPHILS % (AUTO) 82.9 % (45.0-75.0); PLATELET COUNT 613 K/UL (150-450); RED BLOOD COUNT 3.34 M/UL (4.70-6.10); RED CELL DISTRIBUTION WIDTH 16.2 % (11.6-14.8); WHITE BLOOD COUNT 14.9 K/UL (4.8-10.8)
[2018-04-20 11:06] LABS: ANION GAP 7 mmol/L (5-15); BLOOD UREA NITROGEN 33 mg/dL (7-18); CALCIUM 9.4 MG/DL (8.5-10.1); CARBON DIOXIDE 29 MMOL/L (21-32); CHLORIDE 103 MMOL/L (98-107); CREATININE 1.5 MG/DL (0.55-1.30); POTASSIUM 4.8 MMOL/L (3.5-5.1); SODIUM 139 MMOL/L (136-145)
[2018-04-20 12:00] VITALS: BP 120/71
[2018-04-20 16:00] VITALS: BP 122/73
[2018-04-20] MEDS: Tums 500mg ORAL PRN ×3 (16:58→23:10)
--- NOTE | 2018-04-20 19:14 | Cardiology Progress Note ---
Assessment/Plan Assessment/Plan 1. Dyspnea, most likely due to acute exacerbation of COPD. refused 2D-echo. 2. DM, consider ASA and statins. 3. HTN, well controlled with losartan. 4. GERD 5. Anemia. Subjective Subjective No cardiac events. Clinically the same. Objective Last 24 Hour Vital Signs Date Time Temp Pulse Resp B/P (MAP) Pulse Ox O2 Delivery O2 Flow Rate FiO2 04/20/18 16:00 97.5 92 18 122/73 (89) 99 04/20/18 12:00 97.3 97 18 120/71 (87) 99 04/20/18 09:26 90/54 04/20/18 09:00 Nasal Cannula 2.0 04/20/18 08:00 96.9 96 18 118/69 (85) 100 04/20/18 07:59 82 18 97 Nasal Cannula 2.0 28 04/20/18 07:51 84 18 96 Nasal Cannula 2.0 04/20/18 07:50 Nasal Cannula 2.0 28 04/20/18 07:49 96 Nasal Cannula 2.0 28 04/20/18 07:49 84 18 96 Nasal Cannula 2.0 04/20/18 07:49 78 18 96 Nasal Cannula 2.0 28 04/19/18 21:46 Nasal Cannula 2.0 28 04/19/18 21:00 Nasal Cannula 2.0 Intake and Output 04/19/18 04/20/18 19:00 07:00 Intake Total 860 ml Balance 860 ml Intake Oral 860 ml # Voids 6 2 # Bowel Movements 6 2D Echo: Refused ECHO Laboratory Tests Test 04/20/18 10:47 White Blood Count 14.9 K/UL (4.8-10.8) H Red Blood Count 3.34 M/UL (4.70-6.10) L Hemoglobin 9.2 G/DL (14.2-18.0) L Hematocrit 28.8 % (42.0-52.0) L Mean Corpuscular Volume 86 FL (80-99) Mean Corpuscular Hemoglobin 27.6 PG (27.0-31.0) Mean Corpuscular Hemoglobin Concent 32.0 G/DL (32.0-36.0) Red Cell Distribution Width 16.2 % (11.6-14.8) H Platelet Count 613 K/UL (150-450) H Mean Platelet Volume 5.9 FL (6.5-10.1) L Neutrophils (%) (Auto) 82.9 % (45.0-75.0) H Lymphocytes (%) (Auto) 9.1 % (20.0-45.0) L Monocytes (%) (Auto) 5.2 % (1.0-10.0) Eosinophils (%) (Auto) 2.3 % (0.0-3.0) Basophils (%) (Auto) 0.5 % (0.0-2.0) Sodium Level 139 MMOL/L (136-145) Potassium Level 4.8 MMOL/L (3.5-5.1) Chloride Level 103 MMOL/L (98-107) Carbon Dioxide Level 29 MMOL/L (21-32) Anion Gap 7 mmol/L (5-15) Blood Urea Nitrogen 33 mg/dL (7-18) H Creatinine 1.5 MG/DL (0.55-1.30) H Estimat Glomerular Filtration Rate mL/min (>60) Glucose Level 147 MG/DL (74-106) H Calcium Level 9.4 MG/DL (8.5-10.1) Objective HEENT: atraumatic, normocephalic, PERRLA, EOMI. Neck: normal JVP, no carotid bruit. Respiratory: Diminished BS both lungs Cardiovascular: Distant heart sounds, regular rate and rhythm Gastrointestinal: normal inspection, normal bowel sounds, non tender, soft, no guarding, no hernia Musculoskeletal: no edema, clubbing or cyanosis. Ralph Jo MD Apr 20, 2018 19:14
[2018-04-20 20:00] VITALS: BP 102/67
--- NOTE | 2018-04-20 22:28 | Nephrology Progress Note ---
Assessment/Plan Assessment 1. Acute renal failure. 2. 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 3. Hypokalemia. 4. Malnutrition. 5. Dehydration. Plan continue current med monitoring renal function avoid NSAID Subjective Subjective alert and awake no complaints no complaints Objective Objective Last 24 Hour Vital Signs Date Time Temp Pulse Resp B/P (MAP) Pulse Ox O2 Delivery O2 Flow Rate FiO2 04/20/18 21:22 Nasal Cannula 2.0 04/20/18 20:00 96.9 102 19 102/67 (79) 99 04/20/18 16:00 97.5 92 18 122/73 (89) 99 04/20/18 12:00 97.3 97 18 120/71 (87) 99 04/20/18 09:26 90/54 04/20/18 09:00 Nasal Cannula 2.0 04/20/18 08:00 96.9 96 18 118/69 (85) 100 04/20/18 07:59 82 18 97 Nasal Cannula 2.0 28 04/20/18 07:51 84 18 96 Nasal Cannula 2.0 04/20/18 07:50 Nasal Cannula 2.0 28 04/20/18 07:49 96 Nasal Cannula 2.0 28 04/20/18 07:49 84 18 96 Nasal Cannula 2.0 04/20/18 07:49 78 18 96 Nasal Cannula 2.0 28 Intake and Output 04/19/18 04/20/18 19:00 07:00 Intake Total 860 ml Balance 860 ml Intake Oral 860 ml # Voids 6 2 # Bowel Movements 6 Laboratory Tests 04/20/18 10:47: White Blood Count 14.9H, Red Blood Count 3.34L, Hemoglobin 9.2L, Hematocrit 28.8L, Mean Corpuscular Volume 86, Mean Corpuscular Hemoglobin 27.6, Mean Corpuscular Hemoglobin Concent 32.0, Red Cell Distribution Width 16.2H, Platelet Count 613H, Mean Platelet Volume 5.9L, Neutrophils (%) (Auto) 82.9H, Lymphocytes (%) (Auto) 9.1L, Monocytes (%) (Auto) 5.2, Eosinophils (%) (Auto) 2.3, Basophils (%) (Auto) 0.5, Sodium Level 139, Potassium Level 4.8, Chloride Level 103, Carbon Dioxide Level 29, Anion Gap 7, Blood Urea Nitrogen 33H, Creatinine 1.5H, Estimat Glomerular Filtration Rate , Glucose Level 147H, Calcium Level 9.4 Height (Feet): 5 Height (Inches): 10.00 Weight (Pounds): 132 Objective HEAD AND NECK: No JVD. No LAD. No thyromegaly. Extraocular movement intact. Pupils are reactive to light and accommodation. LUNGS: Clear to auscultation. CARDIAC: Regular rate and rhythm. S1 and S2. No murmur. No rub. ABDOMEN: Soft, nontender, and nondistended. No organomegaly. EXTREMITIES: Trace edema. No clubbing. No cyanosis. Cranial nerves II through XII within normal limit. Upper and lower extremities are grossly intact. Cecelia Quintana MD Apr 20, 2018 22:28
[2018-04-21] VITALS: BP 91/47
[2018-04-21 00:30] VITALS: BP 99/51
[2018-04-21 04:00] VITALS: BP 101/53
[2018-04-21] MEDS: Albuterol/Ipratropium 3ml neb HHN PRN (06:01)
[2018-04-21] MEDS: Losartan 50mg tab ORAL SCH (09:00)
[2018-04-21] MEDS: Theophylline ER 100mg ORAL SCH ×2 (09:46→21:53)
[2018-04-21] MEDS: Doxazosin 4mg tab ORAL SCH (09:47)
[2018-04-21] MEDS: Heparin 5000 units/ml inj SUBQ SCH ×2 (09:53→21:55)
[2018-04-21] MEDS: Tums 500mg ORAL PRN ×3 (09:58→21:52)
[2018-04-21] MEDS: Docusate 100mg cap ORAL SCH ×2 (10:00→17:01)
[2018-04-21 10:23] LABS: BASOPHILS % (AUTO) 0.2 % (0.0-2.0); EOSINOPHILS % (AUTO) 3.3 % (0.0-3.0); HEMATOCRIT 28.1 % (42.0-52.0); HEMOGLOBIN 8.9 G/DL (14.2-18.0); LYMPHOCYTES % (AUTO) 8.9 % (20.0-45.0); MEAN CORPUSCULAR VOLUME 86 FL (80-99); MONOCYTES % (AUTO) 5.5 % (1.0-10.0); NEUTROPHILS % (AUTO) 82.1 % (45.0-75.0); PLATELET COUNT 527 K/UL (150-450); RED BLOOD COUNT 3.26 M/UL (4.70-6.10); RED CELL DISTRIBUTION WIDTH 16.2 % (11.6-14.8); WHITE BLOOD COUNT 15.2 K/UL (4.8-10.8)
--- NOTE | 2018-04-21 10:39 | Infectious Diseases Prog Note ---
Assessment/Plan Assessment/Plan PNA (+cough, fever, SOB) -04/20 CXR: Hyperinflated lungs of COPD. Interstitial thickening, improved in the right upper lobe compared to prior study. 2 cm left infrahilar opacity, consider CT for further evaluation. -CXR Right upper lobe and left suprahilar interstitial opacities. Uncertain as to whether these represent progressive chronic interstitial fibrotic changes versus acute infiltrates. Bilateral basilar scarring or atelectasis. COPD changes -sp cx MRSA, PsA (franklin S) -influenz sc neg Fever, D[employer] SOLUTION [employer]CHITECT - none here Leukocytosis, increased ( on steroids) PETER on CKD, improving COPD DM HTN anemia GERD BPH PVD cachectic DNR senior living resident Plan: -Continue PO Levaquin and Linezolid #6/7 for PNA -monitor Plts -04/16 SP Augmentin #1 -f/u cx -Monitor CBC/CMP, temperatures Thank you for this consultation. Will continue to follow along with you. Subjective Allergies: Coded Allergies: RISPERIDONE (Verified Allergy, Intermediate, 04/27/16) Subjective afebrile at RA Objective Vital Signs Last 24 Hour Vital Signs Date Time Temp Pulse Resp B/P (MAP) Pulse Ox O2 Delivery O2 Flow Rate FiO2 04/21/18 09:27 82 16 98 Room Air 21 04/21/18 09:27 82 16 98 Room Air 21 04/21/18 09:27 Room Air 2.0 21 04/21/18 09:27 98 Room Air 21 04/21/18 06:11 86 18 100 Nasal Cannula 2.0 28 04/21/18 06:01 99 22 100 Nasal Cannula 2.0 28 04/21/18 04:00 97.9 79 19 101/53 (69) 93 04/21/18 00:30 99/51 (67) 04/21/18 00:00 98.1 91 18 91/47 (62) 97 04/20/18 21:22 Nasal Cannula 2.0 04/20/18 20:39 98 Nasal Cannula 2.0 28 04/20/18 20:39 Nasal Cannula 2.0 28 04/20/18 20:00 96.9 102 19 102/67 (79) 99 04/20/18 16:00 97.5 92 18 122/73 (89) 99 04/20/18 12:00 97.3 97 18 120/71 (87) 99 Height (Feet): 5 Height (Inches): 10.00 Weight (Pounds): 132 Objective General Appearance: cachetic Lines, tubes and drains: peripheral HEENT: normocephalic, atraumatic Neck: non-tender, normal alignment Respiratory/Chest: chest wall non-tender Cardiovascular/Chest: normal peripheral pulses, normal rate Abdomen: normal bowel sounds, soft Extremities: normal range of motion, non-tender Neurologic: brand activation manager II-XII grossly normal Laboratory Tests Test 04/20/18 10:47 04/21/18 09:50 White Blood Count 14.9 K/UL (4.8-10.8) H 15.2 K/UL (4.8-10.8) H Red Blood Count 3.34 M/UL (4.70-6.10) L 3.26 M/UL (4.70-6.10) L Hemoglobin 9.2 G/DL (14.2-18.0) L 8.9 G/DL (14.2-18.0) L Hematocrit 28.8 % (42.0-52.0) L 28.1 % (42.0-52.0) L Mean Corpuscular Volume 86 FL (80-99) 86 FL (80-99) Mean Corpuscular Hemoglobin 27.6 PG (27.0-31.0) 27.2 PG (27.0-31.0) Mean Corpuscular Hemoglobin Concent 32.0 G/DL (32.0-36.0) 31.6 G/DL (32.0-36.0) L Red Cell Distribution Width 16.2 % (11.6-14.8) H 16.2 % (11.6-14.8) H Platelet Count 613 K/UL (150-450) H 527 K/UL (150-450) H Mean Platelet Volume 5.9 FL (6.5-10.1) L 5.9 FL (6.5-10.1) L Neutrophils (%) (Auto) 82.9 % (45.0-75.0) H 82.1 % (45.0-75.0) H Lymphocytes (%) (Auto) 9.1 % (20.0-45.0) L 8.9 % (20.0-45.0) L Monocytes (%) (Auto) 5.2 % (1.0-10.0) 5.5 % (1.0-10.0) Eosinophils (%) (Auto) 2.3 % (0.0-3.0) 3.3 % (0.0-3.0) H Basophils (%) (Auto) 0.5 % (0.0-2.0) 0.2 % (0.0-2.0) Sodium Level 139 MMOL/L (136-145) Pending Potassium Level 4.8 MMOL/L (3.5-5.1) Pending Chloride Level 103 MMOL/L (98-107) Pending Carbon Dioxide Level 29 MMOL/L (21-32) Pending Anion Gap 7 mmol/L (5-15) Blood Urea Nitrogen 33 mg/dL (7-18) H Pending Creatinine 1.5 MG/DL (0.55-1.30) H Pending Estimat Glomerular Filtration Rate mL/min (>60) Pending Glucose Level 147 MG/DL (74-106) H Pending Calcium Level 9.4 MG/DL (8.5-10.1) Pending Current Medications Medications (Trade) Dose Ordered Sig/Amish Route PRN Reason Start Time Stop Time Status Last Admin Dose Admin Albuterol/ Ipratropium (Albuterol/ Ipratropium) 3 ml Q4H PRN HHN dyspnea 04/19/18 14:15 04/23/18 02:14 04/21/18 06:01 Bisacodyl (Dulcolax) 10 mg DAILYPRN PRN RECTAL Constipation 04/19/18 09:30 05/19/18 09:29 Calcium Carbonate (Tums) 500 mg Q3H PRN ORAL Abdominal cramps 04/20/18 16:30 05/20/18 16:29 04/21/18 09:58 Dextrose (Dextrose 50%) 25 ml Q30M PRN IV Hypoglycemia 04/17/18 18:15 05/16/18 06:14 Dextrose (Dextrose 50%) 50 ml Q30M PRN IV Hypoglycemia 04/17/18 18:15 05/16/18 06:14 Docusate Sodium (Colace) 100 mg TWICE A DAY ORAL 04/17/18 22:00 05/17/18 21:59 04/21/18 10:00 Doxazosin Mesylate (Cardura) 4 mg DAILY ORAL 04/18/18 09:00 05/16/18 08:59 04/21/18 09:47 Heparin Sodium (Porcine) (Heparin 5000 units/ml) 5,000 units EVERY 12 HOURS SUBQ 04/17/18 21:00 05/16/18 08:59 04/21/18 09:53 Levofloxacin (Levaquin) 750 mg EVERY OTHER DAY ORAL 04/20/18 09:00 04/23/18 16:59 04/20/18 09:26 Linezolid (Zyvox) 600 mg EVERY 12 HOURS ORAL 04/17/18 21:00 04/22/18 20:59 04/21/18 09:47 Lorazepam (Ativan) 0.5 mg DAILYPRN PRN ORAL For Anxiety 04/17/18 18:00 04/24/18 17:59 Losartan Potassium (Cozaar) 50 mg DAILY ORAL 04/18/18 09:00 05/16/18 08:59 04/20/18 09:26 Nitroglycerin (Ntg) 0.4 mg Q5M X 3 DOSES PRN SL Prn Chest Pain 04/17/18 17:45 05/16/18 06:14 Prednisone (predniSONE) 20 mg DAILY ORAL 04/21/18 09:00 05/16/18 11:59 04/21/18 09:58 Promethazine HCl/ Codeine (Phenergan with Codeine) 5 ml Q6H PRN ORAL cough 04/17/18 18:15 05/16/18 06:14 Sodium Phosphate (Fleet's Sodium Phosl Enema) 133 ml BIDPRN PRN RECTAL Constipation 04/19/18 14:00 05/19/18 13:59 Temazepam (Restoril) 15 mg HSPRN PRN ORAL Insomnia 04/17/18 21:00 04/24/18 20:59 Theophylline (Nader-Dur) 100 mg EVERY 12 HOURS ORAL 04/17/18 21:00 05/16/18 08:59 04/21/18 09:46 Tiotropium [place] (Spiriva Inhaler) 1 puff DAILY INH 04/18/18 09:00 05/16/18 08:59 04/21/18 09:27 Paula Light M.D. Apr 21, 2018 10:39
[2018-04-21 10:43] LABS: ANION GAP 7 mmol/L (5-15); BLOOD UREA NITROGEN 28 mg/dL (7-18); CALCIUM 9.3 MG/DL (8.5-10.1); CARBON DIOXIDE 29 MMOL/L (21-32); CHLORIDE 103 MMOL/L (98-107); CREATININE 1.3 MG/DL (0.55-1.30); POTASSIUM 4.5 MMOL/L (3.5-5.1); SODIUM 139 MMOL/L (136-145)
[2018-04-21 12:00] VITALS: BP 92/53
--- NOTE | 2018-04-21 12:17 | GI Initial Consult Note ---
History of Present Illness General Date patient seen: Apr 21, 2018 Time patient seen: 12:17 Reason for Hospitalization: Fever Referring physician: CARLY DEAN Reason for Consultation: dyspnea Present Illness HPI This is an 83-year-old male from [facility], who presented with increased shortness of breath, weak, and lethargy, was diagnosed with pneumonia and sepsis, and admitted to telemetry for further care. Currently, O2 NC, slight short of breath in bed, no complaint. GI consulted for abdominal pain. Patient was seen, awake alert and oriented x4 no apparent distress. Per the patient, he has been suffering from chronic GERD and taking Tums as needed. At this time, the patient states that Tums medication has not been working he continues to have epigastric discomfort and abdominal spasm. Patient states he had an upper endoscopy approximately 2 years ago, unknown of the results at this time. He adds that he had a colonoscopy performed about 4 years ago, states that findings were normal. The patient presents today with some leukocytosis and anemia Home Meds Reported Medications Doxazosin Mesylate* (CARDURA*) 4 Mg Tablet, 4 MG ORAL HS, TAB 04/15/18 Tiotropium [place]* (SPIRIVA*) 18 Mcg Cap.w.dev, 1 PUFF INH DAILY, EA 04/15/18 Pantoprazole* (PROTONIX*) 40 Mg Tablet.dr, 40 MG ORAL EVERY 12 HOURS, TAB 04/15/18 Multivitamins* (MULTIVITAMINS*) 1 Each Tablet, 1 TAB ORAL DAILY, TAB 0 Refills 04/15/18 Meclizine Hcl* (MECLIZINE*) 25 Mg Tablet, 25 MG ORAL THREE TIMES A DAY PRN for for dizziness, TAB 04/15/18 Lorazepam* (ATIVAN*) 0.5 Mg Tablet, 0.5 MG ORAL DAILY PRN for For Anxiety, TAB 04/15/18 Lansoprazole* (PREVACID*) 30 Mg Capsule.dr, 30 MG ORAL BID, CAP 04/15/18 Ipratropium/Albuterol Sulfate (DuoNeb 0.5-3(2.5)mg/3ml) 3 Ml Ampul.neb, 3 ML HHN Q4HR, EA 04/15/18 Insulin Glargine (LANTUS) 100 Unit/1 Ml Insuln.pen, 10 SUBQ DAILY, #1 EA 0 Refills 04/15/18 Fluticasone/Salmeterol (Advair 250-50 Diskus) 1 Each Blst.w.dev, 1 PUFF INH EVERY 12 HOURS, EA 04/15/18 Fluticasone Propionate (Flonase Allergy Relief) 9.9 Ml [place].susp, 9.9 ML NS BID 04/15/18 Ferrous Sulfate* (FERROUS SULFATE*) 325 Mg Tablet, 325 MG ORAL THREE TIMES A DAY , #90 TAB 0 Refills 04/15/18 Cetirizine Hcl* (ZYRTEC*) 10 Mg Tablet, 10 MG ORAL DAILY, #30 TAB 0 Refills 04/15/18 Calcium Carbonate (TUMS) 200 Mg Tab.chew, 200 MG PO Q4HR for pain, TAB 04/15/18 Ondansetron Hcl* (ZOFRAN*) 8 Mg Tablet, 8 MG ORAL EVERY 4 HOURS, #4 TAB 0 Refills 04/27/16 Prednisone (PREDNISONE) 5 Mg Tab.ds.pk, 60 MG PO DAILY, PACK 04/27/16 Sennosides (SENNA) 8.6 Mg Tablet, 17.2 MG PO BEDTIME, TAB 04/27/16 Losartan Potassium* (LOSARTAN POTASSIUM*) 50 Mg Tablet, 50 MG ORAL DAILY, TAB 04/27/16 Cyanocobalamin (Vitamin B-12)* (VITAMIN B-12*) 500 Mcg Tablet, 500 MCG ORAL DAILY, #30 TAB 0 Refills 04/27/16 Guaifenesin* (ADULT WAL-TUSSIN*) 100 Mg/5 Ml Liquid, 30 ML ORAL EVERY 6 HOURS, ML 04/27/16 Doxazosin Mesylate* (CARDURA*) 4 Mg Tablet, 6 MG ORAL BEDTIME, TAB 04/27/16 Cholecalciferol (Vitamin D3) (VITAMIN D-400*) 400 Unit Tablet, 400 UNITS ORAL DAILY, #10 TAB 0 Refills 04/27/16 Docusate Sodium* (DOCUSATE SODIUM*) 100 Mg Capsule, 100 MG ORAL TWICE A DAY, CAP 04/27/16 Atorvastatin Calcium* (LIPITOR*) 80 Mg Tablet, 80 MG ORAL BEDTIME, TAB 04/27/16 Aspirin* (ASPIRIN*) 81 Mg Tab.chew, 81 MG ORAL DAILY, TAB 04/27/16 Med list reviewed/reconciled: Yes Allergies: Coded Allergies: RISPERIDONE (Verified Allergy, Intermediate, 04/27/16) Patient History PMH Narrative Failure to thrive, weakness, cough, pneumonia, sepsis, anemia, diabetes, hypertension, CKD, COPD, ATN. Social History: Denies: smoking, alcohol use, drug use, other Review of Systems All Other Systems: negative except mentioned in HPI Physical Exam Vital Signs Date Time Temp Pulse Resp B/P (MAP) Pulse Ox O2 Delivery O2 Flow Rate FiO2 04/17/18 08:00 97.9 75 20 111/64 (80) 94 04/17/18 09:00 Nasal Cannula 2.0 04/17/18 09:57 28 Sp02 EP Interpretation: reviewed, normal Labs Laboratory Tests Test 04/21/18 09:50 White Blood Count 15.2 K/UL (4.8-10.8) H Red Blood Count 3.26 M/UL (4.70-6.10) L Hemoglobin 8.9 G/DL (14.2-18.0) L Hematocrit 28.1 % (42.0-52.0) L Mean Corpuscular Volume 86 FL (80-99) Mean Corpuscular Hemoglobin 27.2 PG (27.0-31.0) Mean Corpuscular Hemoglobin Concent 31.6 G/DL (32.0-36.0) L Red Cell Distribution Width 16.2 % (11.6-14.8) H Platelet Count 527 K/UL (150-450) H Mean Platelet Volume 5.9 FL (6.5-10.1) L Neutrophils (%) (Auto) 82.1 % (45.0-75.0) H Lymphocytes (%) (Auto) 8.9 % (20.0-45.0) L Monocytes (%) (Auto) 5.5 % (1.0-10.0) Eosinophils (%) (Auto) 3.3 % (0.0-3.0) H Basophils (%) (Auto) 0.2 % (0.0-2.0) Sodium Level 139 MMOL/L (136-145) Potassium Level 4.5 MMOL/L (3.5-5.1) Chloride Level 103 MMOL/L (98-107) Carbon Dioxide Level 29 MMOL/L (21-32) Anion Gap 7 mmol/L (5-15) Blood Urea Nitrogen 28 mg/dL (7-18) H Creatinine 1.3 MG/DL (0.55-1.30) Estimat Glomerular Filtration Rate mL/min (>60) Glucose Level 141 MG/DL (74-106) H Calcium Level 9.3 MG/DL (8.5-10.1) General Appearance: well appearing, no apparent distress, alert, thin Head: normocephalic EENT: PERRL/EOMI, normal ENT inspection Neck: supple Respiratory: normal breath sounds, no respiratory distress Cardiovascular: normal rate Gastrointestinal: normal inspection, non tender, soft, normal bowel sounds, non -distended Rectal: deferred Genitourinary: deferred Musculoskeletal: normal inspection, back normal Neurologic: normal inspection, alert, oriented x3, responsive Psychiatric: normal inspection, judgement/insight normal, memory normal Skin: normal inspection, normal color, no rash, warm/dry, palpation normal, well hydrated Lymphatic: normal inspection, no adenopathy Current Medications Current Medications Medications (Trade) Dose Ordered Sig/Amish Route PRN Reason Start Time Stop Time Status Last Admin Dose Admin Albuterol/ Ipratropium (Albuterol/ Ipratropium) 3 ml Q4H PRN HHN dyspnea 04/19/18 14:15 04/23/18 02:14 04/21/18 06:01 Bisacodyl (Dulcolax) 10 mg DAILYPRN PRN RECTAL Constipation 04/19/18 09:30 05/19/18 09:29 Calcium Carbonate (Tums) 500 mg Q3H PRN ORAL Abdominal cramps 04/20/18 16:30 05/20/18 16:29 04/21/18 09:58 Dextrose (Dextrose 50%) 25 ml Q30M PRN IV Hypoglycemia 04/17/18 18:15 05/16/18 06:14 Dextrose (Dextrose 50%) 50 ml Q30M PRN IV Hypoglycemia 04/17/18 18:15 05/16/18 06:14 Docusate Sodium (Colace) 100 mg TWICE A DAY ORAL 04/17/18 22:00 05/17/18 21:59 04/21/18 10:00 Doxazosin Mesylate (Cardura) 4 mg DAILY ORAL 04/18/18 09:00 05/16/18 08:59 04/21/18 09:47 Heparin Sodium (Porcine) (Heparin 5000 units/ml) 5,000 units EVERY 12 HOURS SUBQ 04/17/18 21:00 05/16/18 08:59 04/21/18 09:53 Levofloxacin (Levaquin) 750 mg EVERY OTHER DAY ORAL 04/20/18 09:00 04/23/18 16:59 04/20/18 09:26 Linezolid (Zyvox) 600 mg EVERY 12 HOURS ORAL 04/17/18 21:00 04/22/18 23:59 04/21/18 09:47 Lorazepam (Ativan) 0.5 mg DAILYPRN PRN ORAL For Anxiety 04/17/18 18:00 04/24/18 17:59 Losartan Potassium (Cozaar) 50 mg DAILY ORAL 04/18/18 09:00 05/16/18 08:59 04/20/18 09:26 Nitroglycerin (Ntg) 0.4 mg Q5M X 3 DOSES PRN SL Prn Chest Pain 04/17/18 17:45 05/16/18 06:14 Prednisone (predniSONE) 20 mg DAILY ORAL 04/21/18 09:00 05/16/18 11:59 04/21/18 09:58 Promethazine HCl/ Codeine (Phenergan with Codeine) 5 ml Q6H PRN ORAL cough 04/17/18 18:15 05/16/18 06:14 Sodium Phosphate (Fleet's Sodium Phosl Enema) 133 ml BIDPRN PRN RECTAL Constipation 04/19/18 14:00 05/19/18 13:59 Temazepam (Restoril) 15 mg HSPRN PRN ORAL Insomnia 04/17/18 21:00 04/24/18 20:59 Theophylline (Nader-Dur) 100 mg EVERY 12 HOURS ORAL 04/17/18 21:00 05/16/18 08:59 04/21/18 09:46 Tiotropium [place] (Spiriva Inhaler) 1 puff DAILY INH 04/18/18 09:00 05/16/18 08:59 04/21/18 09:27 GI: Plan Problems: (1) Anemia (2) GERD (gastroesophageal reflux disease) (3) Severe protein-calorie malnutrition (4) Acute respiratory failure (5) Constipation Plan We will consider endoscopy this saturday if patient has persistent pain PPI, will add Carafate anemia work up OB stool r/o GI bleed monitor H&H, prn transfusions bowel regime ppi fu labs Discussed with Dr. Sy. Thank you for this patient referral, we will follow. The patient was seen and examined at bedside and all new and available data was reviewed in the patients chart. I agree with the above findings, impression and plan. (Patient seen earlier today. Signature stamp does not reflect patient encounter time.). - MD Syl MillsTuc[facility] CenterHima LAMINATION OPERATOR Apr 21, 2018 12:17
--- NOTE | 2018-04-21 14:38 | General Progress Note ---
Assessment/Plan Problem List: (1) Pneumonia ICD Codes: J18.9 - Pneumonia, unspecified organism SNOMED: 502989267 (2) CKD (chronic kidney disease) ICD Codes: N18.9 - Chronic kidney disease, unspecified SNOMED: 752273427 (3) ATN (acute tubular necrosis) ICD Codes: N17.0 - Acute kidney failure with tubular necrosis SNOMED: 43697570 (4) Hypertension ICD Codes: I10 - Essential (primary) hypertension SNOMED: 44540235 Status: unchanged Assessment/Plan o2 pulm tx abx ot pt diet cbc bmp am Subjective Constitutional: Reports: weakness Allergies: Coded Allergies: RISPERIDONE (Verified Allergy, Intermediate, 04/27/16) All Systems: reviewed and negative except above Subjective o2nc sleepy in bed Objective Last 24 Hour Vital Signs Date Time Temp Pulse Resp B/P (MAP) Pulse Ox O2 Delivery O2 Flow Rate FiO2 04/21/18 12:00 98.0 86 18 92/53 (66) 97 04/21/18 09:27 82 16 98 Room Air 21 04/21/18 09:27 82 16 98 Room Air 21 04/21/18 09:27 Room Air 2.0 21 04/21/18 09:27 98 Room Air 21 04/21/18 09:00 Nasal Cannula 2.0 04/21/18 06:11 86 18 100 Nasal Cannula 2.0 28 04/21/18 06:01 99 22 100 Nasal Cannula 2.0 28 04/21/18 04:00 97.9 79 19 101/53 (69) 93 04/21/18 00:30 99/51 (67) 04/21/18 00:00 98.1 91 18 91/47 (62) 97 04/20/18 21:22 Nasal Cannula 2.0 04/20/18 20:39 98 Nasal Cannula 2.0 28 04/20/18 20:39 Nasal Cannula 2.0 28 04/20/18 20:00 96.9 102 19 102/67 (79) 99 04/20/18 16:00 97.5 92 18 122/73 (89) 99 Intake and Output 04/20/18 04/21/18 18:59 06:59 Intake Total 300 ml Output Total 450 ml Balance -150 ml Intake Oral 300 ml Output Urine Total 450 ml # Voids 6 Laboratory Tests 04/21/18 09:50: White Blood Count 15.2H, Red Blood Count 3.26L, Hemoglobin 8.9L, Hematocrit 28.1L, Mean Corpuscular Volume 86, Mean Corpuscular Hemoglobin 27.2, Mean Corpuscular Hemoglobin Concent 31.6L, Red Cell Distribution Width 16.2H, Platelet Count 527H, Mean Platelet Volume 5.9L, Neutrophils (%) (Auto) 82.1H, Lymphocytes (%) (Auto) 8.9L, Monocytes (%) (Auto) 5.5, Eosinophils (%) (Auto) 3.3H, Basophils (%) (Auto) 0.2, Sodium Level 139, Potassium Level 4.5, Chloride Level 103, Carbon Dioxide Level 29, Anion Gap 7, Blood Urea Nitrogen 28H, Creatinine 1.3, Estimat Glomerular Filtration Rate , Glucose Level 141H, Calcium Level 9.3 Height (Feet): 5 Height (Inches): 10.00 Weight (Pounds): 132 General Appearance: lethargic EENT: normal ENT inspection Neck: normal alignment Cardiovascular: normal peripheral pulses, normal rate, regular rhythm Respiratory/Chest: chest wall non-tender, decreased breath sounds Abdomen: normal bowel sounds, non tender, soft Extremities: normal inspection Edema: no edema noted Arm (L), no edema noted Arm (R), no edema noted Leg (L), no edema noted Leg (R), no edema noted Pedal (L), no edema noted Pedal (R), no edema noted Generalized Neurologic: motor weakness Skin: normal pigmentation, warm/dry Leland Joseph DO Apr 21, 2018 14:38
--- NOTE | 2018-04-21 15:35 | Pulmonology Progress Note ---
Assessment/Plan Problems: (1) Acute respiratory failure (2) ATN (acute tubular necrosis) (3) CKD (chronic kidney disease) (4) Severe protein-calorie malnutrition (5) Hypertension (6) PVD (peripheral vascular disease) (7) Emphysema of lung (8) COPD exacerbation Assessment/Plan improving respiratory treatment dc steroids high wbc most likely secondary to steroids check cultures po abx dvt prophylaxis pt/ot med/surg Subjective ROS Limited/Unobtainable: No Constitutional: Reports: no symptoms HEENT: Repors: no symptoms Respiratory: Reports: no symptoms Allergies: Coded Allergies: RISPERIDONE (Verified Allergy, Intermediate, 04/27/16) Objective Last 24 Hour Vital Signs Date Time Temp Pulse Resp B/P (MAP) Pulse Ox O2 Delivery O2 Flow Rate FiO2 04/21/18 12:00 98.0 86 18 92/53 (66) 97 04/21/18 09:27 82 16 98 Room Air 21 04/21/18 09:27 82 16 98 Room Air 21 04/21/18 09:27 Room Air 2.0 04/21/18 09:27 98 Room Air 21 04/21/18 09:00 Nasal Cannula 2.0 04/21/18 06:11 86 18 100 Nasal Cannula 2.0 28 04/21/18 06:01 99 22 100 Nasal Cannula 2.0 28 04/21/18 04:00 97.9 79 19 101/53 (69) 93 04/21/18 00:30 99/51 (67) 04/21/18 00:00 98.1 91 18 91/47 (62) 97 04/20/18 21:22 Nasal Cannula 2.0 04/20/18 20:39 98 Nasal Cannula 2.0 28 04/20/18 20:39 Nasal Cannula 2.0 28 04/20/18 20:00 96.9 102 19 102/67 (79) 99 04/20/18 16:00 97.5 92 18 122/73 (89) 99 Intake and Output 04/20/18 04/21/18 18:59 06:59 Intake Total 300 ml Output Total 450 ml Balance -150 ml Intake Oral 300 ml Output Urine Total 450 ml # Voids 6 Objective General Appearance: cachectic Lines, tubes and drains: peripheral HEENT: normocephalic Neck: non-tender Respiratory/Chest: chest wall non-tender, lungs clear Cardiovascular/Chest: normal peripheral pulses Abdomen: normal bowel sounds Genitourinary/Rectal: normal genital exam Extremities: normal range of motion, non-pitting Laboratory Tests 04/21/18 09:50: White Blood Count 15.2H, Red Blood Count 3.26L, Hemoglobin 8.9L, Hematocrit 28.1L, Mean Corpuscular Volume 86, Mean Corpuscular Hemoglobin 27.2, Mean Corpuscular Hemoglobin Concent 31.6L, Red Cell Distribution Width 16.2H, Platelet Count 527H, Mean Platelet Volume 5.9L, Neutrophils (%) (Auto) 82.1H, Lymphocytes (%) (Auto) 8.9L, Monocytes (%) (Auto) 5.5, Eosinophils (%) (Auto) 3.3H, Basophils (%) (Auto) 0.2, Sodium Level 139, Potassium Level 4.5, Chloride Level 103, Carbon Dioxide Level 29, Anion Gap 7, Blood Urea Nitrogen 28H, Creatinine 1.3, Estimat Glomerular Filtration Rate , Glucose Level 141H, Calcium Level 9.3 Current Medications Medications (Trade) Dose Ordered Sig/Amish Route PRN Reason Start Time Stop Time Status Last Admin Dose Admin Albuterol/ Ipratropium (Albuterol/ Ipratropium) 3 ml Q4H PRN HHN dyspnea 04/19/18 14:15 04/23/18 02:14 04/21/18 06:01 Bisacodyl (Dulcolax) 10 mg DAILYPRN PRN RECTAL Constipation 04/19/18 09:30 05/19/18 09:29 Calcium Carbonate (Tums) 500 mg Q3H PRN ORAL Abdominal cramps 04/20/18 16:30 05/20/18 16:29 04/21/18 09:58 Dextrose (Dextrose 50%) 25 ml Q30M PRN IV Hypoglycemia 04/17/18 18:15 05/16/18 06:14 Dextrose (Dextrose 50%) 50 ml Q30M PRN IV Hypoglycemia 04/17/18 18:15 05/16/18 06:14 Docusate Sodium (Colace) 100 mg TWICE A DAY ORAL 04/17/18 22:00 05/17/18 21:59 04/21/18 10:00 Doxazosin Mesylate (Cardura) 4 mg DAILY ORAL 04/18/18 09:00 05/16/18 08:59 04/21/18 09:47 Heparin Sodium (Porcine) (Heparin 5000 units/ml) 5,000 units EVERY 12 HOURS SUBQ 04/17/18 21:00 05/16/18 08:59 04/21/18 09:53 Levofloxacin (Levaquin) 750 mg EVERY OTHER DAY ORAL 04/20/18 09:00 04/23/18 16:59 04/20/18 09:26 Linezolid (Zyvox) 600 mg EVERY 12 HOURS ORAL 04/17/18 21:00 04/22/18 23:59 04/21/18 09:47 Lorazepam (Ativan) 0.5 mg DAILYPRN PRN ORAL For Anxiety 04/17/18 18:00 04/24/18 17:59 Losartan Potassium (Cozaar) 50 mg DAILY ORAL 04/18/18 09:00 05/16/18 08:59 04/20/18 09:26 Nitroglycerin (Ntg) 0.4 mg Q5M X 3 DOSES PRN SL Prn Chest Pain 04/17/18 17:45 05/16/18 06:14 Polyethylene Glycol (Miralax) 17 gm BEDTIME ORAL 04/21/18 21:00 05/21/18 20:59 Prednisone (predniSONE) 20 mg DAILY ORAL 04/21/18 09:00 05/16/18 11:59 04/21/18 09:58 Promethazine HCl/ Codeine (Phenergan with Codeine) 5 ml Q6H PRN ORAL cough 04/17/18 18:15 05/16/18 06:14 Sodium Phosphate (Fleet's Sodium Phosl Enema) 133 ml BIDPRN PRN RECTAL Constipation 04/19/18 14:00 05/19/18 13:59 Sucralfate (Carafate) 1 gm BIAC ORAL 04/21/18 16:30 05/21/18 16:29 Temazepam (Restoril) 15 mg HSPRN PRN ORAL Insomnia 04/17/18 21:00 04/24/18 20:59 Theophylline (Nader-Dur) 100 mg EVERY 12 HOURS ORAL 04/17/18 21:00 05/16/18 08:59 04/21/18 09:46 Tiotropium [place] (Spiriva Inhaler) 1 puff DAILY INH 04/18/18 09:00 05/16/18 08:59 04/21/18 09:27 Alejandrina Cee MD Apr 21, 2018 15:35
[2018-04-21 16:00] VITALS: BP 91/55
[2018-04-21] MEDS: Sucralfate 1gm tab ORAL SCH (17:01)
[2018-04-21] MEDS: Tylenol #3 tab (300mg/30mg) ORAL PRN (18:17)
--- NOTE | 2018-04-21 19:51 | Nephrology Progress Note ---
Assessment/Plan Assessment 1. Acute renal failure. 2. 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 3. Hypokalemia. 4. Malnutrition. 5. Dehydration. Plan continue current med monitoring renal function avoid NSAID Subjective Constitutional: Reports: no symptoms HEENT: Reports: no symptoms Genitourinary: Reports: no symptoms Neurologic/Psychiatric: Reports: no symptoms Subjective alert and awake no complaints no complaints Objective Objective Last 24 Hour Vital Signs Date Time Temp Pulse Resp B/P (MAP) Pulse Ox O2 Delivery O2 Flow Rate FiO2 04/21/18 18:47 97.2 04/21/18 16:00 97.2 100 20 91/55 (67) 98 04/21/18 12:00 98.0 86 18 92/53 (66) 97 04/21/18 09:27 82 16 98 Room Air 21 04/21/18 09:27 82 16 98 Room Air 21 04/21/18 09:27 Room Air 2.0 21 04/21/18 09:27 98 Room Air 21 04/21/18 09:00 Nasal Cannula 2.0 04/21/18 06:11 86 18 100 Nasal Cannula 2.0 28 04/21/18 06:01 99 22 100 Nasal Cannula 2.0 28 04/21/18 04:00 97.9 79 19 101/53 (69) 93 04/21/18 00:30 99/51 (67) 04/21/18 00:00 98.1 91 18 91/47 (62) 97 04/20/18 21:22 Nasal Cannula 2.0 04/20/18 20:39 98 Nasal Cannula 2.0 28 04/20/18 20:39 Nasal Cannula 2.0 28 04/20/18 20:00 96.9 102 19 102/67 (79) 99 Intake and Output 04/20/18 04/21/18 18:59 06:59 Intake Total 300 ml Output Total 450 ml Balance -150 ml Intake Oral 300 ml Output Urine Total 450 ml # Voids 6 Laboratory Tests 04/21/18 09:50: White Blood Count 15.2H, Red Blood Count 3.26L, Hemoglobin 8.9L, Hematocrit 28.1L, Mean Corpuscular Volume 86, Mean Corpuscular Hemoglobin 27.2, Mean Corpuscular Hemoglobin Concent 31.6L, Red Cell Distribution Width 16.2H, Platelet Count 527H, Mean Platelet Volume 5.9L, Neutrophils (%) (Auto) 82.1H, Lymphocytes (%) (Auto) 8.9L, Monocytes (%) (Auto) 5.5, Eosinophils (%) (Auto) 3.3H, Basophils (%) (Auto) 0.2, Sodium Level 139, Potassium Level 4.5, Chloride Level 103, Carbon Dioxide Level 29, Anion Gap 7, Blood Urea Nitrogen 28H, Creatinine 1.3, Estimat Glomerular Filtration Rate , Glucose Level 141H, Calcium Level 9.3 Height (Feet): 5 Height (Inches): 10.00 Weight (Pounds): 132 Objective HEAD AND NECK: No JVD. No LAD. No thyromegaly. Extraocular movement intact. Pupils are reactive to light and accommodation. LUNGS: Clear to auscultation. CARDIAC: Regular rate and rhythm. S1 and S2. No murmur. No rub. ABDOMEN: Soft, nontender, and nondistended. No organomegaly. EXTREMITIES: Trace edema. No clubbing. No cyanosis. Cranial nerves II through XII within normal limit. Upper and lower extremities are grossly intact. Cecelia Quintana MD Apr 21, 2018 19:51
[2018-04-21 20:00] VITALS: BP 109/60
[2018-04-21] MEDS: Miralax 17gm pkt ORAL SCH ×2 (21:00→21:53)
[2018-04-22] MEDS: Tylenol #3 tab (300mg/30mg) ORAL PRN ×3 (02:55→20:05)
--- NOTE | 2018-04-22 05:29 | Cardiology Progress Note ---
Assessment/Plan Assessment/Plan LATE ENTRY PROGRESS NOTE: DOS: APR 21, 2017 TIME THE PATIENT SEEN: 13:02pm 1. Dyspnea, most likely due to acute exacerbation of COPD. refused 2D-echo. Avoid B-blockers at this time. 2. DM, diet controlled, not on active diabetic regimen. 3. HTN, continue losartan. 4. GERD 5. Anemia. Subjective Subjective No cardiac events noted. On the med-surg unit with no tele monitoring. Objective Last 24 Hour Vital Signs Date Time Temp Pulse Resp B/P (MAP) Pulse Ox O2 Delivery O2 Flow Rate FiO2 04/21/18 21:00 Nasal Cannula 2.0 04/21/18 20:11 Room Air 21 04/21/18 20:11 97 Room Air 21 04/21/18 20:00 97.8 85 20 109/60 (76) 100 04/21/18 18:47 97.2 04/21/18 16:00 97.2 100 20 91/55 (67) 98 04/21/18 12:00 98.0 86 18 92/53 (66) 97 04/21/18 09:27 82 16 98 Room Air 21 04/21/18 09:27 82 16 98 Room Air 21 04/21/18 09:27 Room Air 2.0 21 04/21/18 09:27 98 Room Air 21 04/21/18 09:00 Nasal Cannula 2.0 04/21/18 06:11 86 18 100 Nasal Cannula 2.0 28 04/21/18 06:01 99 22 100 Nasal Cannula 2.0 28 Intake and Output 04/21/18 04/22/18 19:00 07:00 Intake Total 840 ml Output Total 1100 ml Balance -260 ml Intake Oral 840 ml Output Urine Total 1100 ml # Bowel Movements 1 2D Echo: Refused ECHO Laboratory Tests Test 04/21/18 09:50 White Blood Count 15.2 K/UL (4.8-10.8) H Red Blood Count 3.26 M/UL (4.70-6.10) L Hemoglobin 8.9 G/DL (14.2-18.0) L Hematocrit 28.1 % (42.0-52.0) L Mean Corpuscular Volume 86 FL (80-99) Mean Corpuscular Hemoglobin 27.2 PG (27.0-31.0) Mean Corpuscular Hemoglobin Concent 31.6 G/DL (32.0-36.0) L Red Cell Distribution Width 16.2 % (11.6-14.8) H Platelet Count 527 K/UL (150-450) H Mean Platelet Volume 5.9 FL (6.5-10.1) L Neutrophils (%) (Auto) 82.1 % (45.0-75.0) H Lymphocytes (%) (Auto) 8.9 % (20.0-45.0) L Monocytes (%) (Auto) 5.5 % (1.0-10.0) Eosinophils (%) (Auto) 3.3 % (0.0-3.0) H Basophils (%) (Auto) 0.2 % (0.0-2.0) Sodium Level 139 MMOL/L (136-145) Potassium Level 4.5 MMOL/L (3.5-5.1) Chloride Level 103 MMOL/L (98-107) Carbon Dioxide Level 29 MMOL/L (21-32) Anion Gap 7 mmol/L (5-15) Blood Urea Nitrogen 28 mg/dL (7-18) H Creatinine 1.3 MG/DL (0.55-1.30) Estimat Glomerular Filtration Rate mL/min (>60) Glucose Level 141 MG/DL (74-106) H Calcium Level 9.3 MG/DL (8.5-10.1) Objective HEENT: atraumatic, normocephalic, PERRLA, EOMI. Neck: normal JVP, no carotid bruit. Respiratory: Diminished BS both lungs Cardiovascular: Distant heart sounds, regular rate and rhythm Gastrointestinal: normal inspection, normal bowel sounds, non tender, soft, no guarding, no hernia Musculoskeletal: no edema, clubbing or cyanosis. Ralph Jo MD Apr 22, 2018 05:29
[2018-04-22] MEDS: Sucralfate 1gm tab ORAL SCH ×3 (06:30→15:41)
[2018-04-22 08:00] VITALS: BP 101/58
[2018-04-22] MEDS: Theophylline ER 100mg ORAL SCH ×2 (08:14→21:17)
[2018-04-22] MEDS: Docusate 100mg cap ORAL SCH ×2 (08:15→17:55)
[2018-04-22] MEDS: Doxazosin 4mg tab ORAL SCH (08:15)
[2018-04-22] MEDS: Losartan 50mg tab ORAL SCH (08:16)
[2018-04-22] MEDS: Heparin 5000 units/ml inj SUBQ SCH ×2 (08:20→21:18)
[2018-04-22] MEDS: Albuterol/Ipratropium 3ml neb HHN PRN (09:18)
--- NOTE | 2018-04-22 09:31 | Nephrology Progress Note ---
Assessment/Plan Assessment 1. Acute renal failure. 2. 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 3. Hypokalemia. 4. Malnutrition. 5. Dehydration. Plan continue current med monitoring renal function nutritional support avoid NSAID Subjective Constitutional: Reports: no symptoms HEENT: Reports: no symptoms Genitourinary: Reports: no symptoms Neurologic/Psychiatric: Reports: no symptoms Subjective alert and awake no complaints no complaints Objective Objective Last 24 Hour Vital Signs Date Time Temp Pulse Resp B/P (MAP) Pulse Ox O2 Delivery O2 Flow Rate FiO2 04/22/18 09:20 81 18 98 Room Air 21 04/22/18 09:19 98 Room Air 21 04/22/18 09:19 Room Air 21 04/22/18 09:19 81 18 98 Room Air 21 04/22/18 09:18 80 18 98 Room Air 21 04/22/18 08:20 Nasal Cannula 2.0 04/22/18 08:16 109/60 04/21/18 21:00 Nasal Cannula 2.0 04/21/18 20:11 Room Air 04/21/18 20:11 97 Room Air 21 04/21/18 20:00 97.8 85 20 109/60 (76) 100 04/21/18 18:47 97.2 04/21/18 16:00 97.2 100 20 91/55 (67) 98 04/21/18 12:00 98.0 86 18 92/53 (66) 97 Intake and Output 04/21/18 04/22/18 19:00 07:00 Intake Total 840 ml Output Total 1100 ml 400 ml Balance -260 ml -400 ml Intake Oral 840 ml Output Urine Total 1100 ml 400 ml # Bowel Movements 1 Laboratory Tests 04/21/18 09:50: White Blood Count 15.2H, Red Blood Count 3.26L, Hemoglobin 8.9L, Hematocrit 28.1L, Mean Corpuscular Volume 86, Mean Corpuscular Hemoglobin 27.2, Mean Corpuscular Hemoglobin Concent 31.6L, Red Cell Distribution Width 16.2H, Platelet Count 527H, Mean Platelet Volume 5.9L, Neutrophils (%) (Auto) 82.1H, Lymphocytes (%) (Auto) 8.9L, Monocytes (%) (Auto) 5.5, Eosinophils (%) (Auto) 3.3H, Basophils (%) (Auto) 0.2, Sodium Level 139, Potassium Level 4.5, Chloride Level 103, Carbon Dioxide Level 29, Anion Gap 7, Blood Urea Nitrogen 28H, Creatinine 1.3, Estimat Glomerular Filtration Rate , Glucose Level 141H, Calcium Level 9.3 Height (Feet): 5 Height (Inches): 10.00 Weight (Pounds): 132 Objective HEAD AND NECK: No JVD. No LAD. No thyromegaly. Extraocular movement intact. Pupils are reactive to light and accommodation. LUNGS: Clear to auscultation. CARDIAC: Regular rate and rhythm. S1 and S2. No murmur. No rub. ABDOMEN: Soft, nontender, and nondistended. No organomegaly. EXTREMITIES: Trace edema. No clubbing. No cyanosis. Cranial nerves II through XII within normal limit. Upper and lower extremities are grossly intact. Cecelia Quintana MD Apr 22, 2018 09:31
--- NOTE | 2018-04-22 11:01 | Infectious Diseases Prog Note ---
Assessment/Plan Assessment/Plan PNA (+cough, fever, SOB) -04/20 CXR: Hyperinflated lungs of COPD. Interstitial thickening, improved in the right upper lobe compared to prior study. 2 cm left infrahilar opacity, consider CT for further evaluation. -CXR Right upper lobe and left suprahilar interstitial opacities. Uncertain as to whether these represent progressive chronic interstitial fibrotic changes versus acute infiltrates. Bilateral basilar scarring or atelectasis. COPD changes -sp cx MRSA, PsA (franklin S) -influenz sc neg Fever, [employer] - none here Leukocytosis, increased ( on steroids) PETER on CKD, improving COPD DM HTN anemia GERD BPH PVD cachectic DNR custodial resident Plan: -Continue PO Levaquin and Linezolid #7/7 for PNA -monitor Plts -04/16 SP Augmentin #1 -f/u cx -Monitor CBC/CMP, temperatures -CBC am Thank you for this consultation. Will continue to follow along with you. Subjective Allergies: Coded Allergies: RISPERIDONE (Verified Allergy, Intermediate, 04/27/16) Subjective afebrile at RA feeling better no cbc today Objective Vital Signs Last 24 Hour Vital Signs Date Time Temp Pulse Resp B/P (MAP) Pulse Ox O2 Delivery O2 Flow Rate FiO2 04/22/18 09:20 81 18 98 Room Air 21 04/22/18 09:19 98 Room Air 21 04/22/18 09:19 Room Air 21 04/22/18 09:19 81 18 98 Room Air 21 04/22/18 09:18 80 18 98 Room Air 21 04/22/18 08:20 Nasal Cannula 2.0 04/22/18 08:16 109/60 04/22/18 08:00 98.3 86 20 101/58 (72) 98 04/21/18 21:00 Nasal Cannula 2.0 04/21/18 20:11 Room Air 21 04/21/18 20:11 97 Room Air 21 04/21/18 20:00 97.8 85 20 109/60 (76) 100 04/21/18 18:47 97.2 04/21/18 16:00 97.2 100 20 91/55 (67) 98 04/21/18 12:00 98.0 86 18 92/53 (66) 97 Height (Feet): 5 Height (Inches): 10.00 Weight (Pounds): 132 Objective General Appearance: cachetic Lines, tubes and drains: peripheral HEENT: normocephalic, atraumatic Neck: non-tender, normal alignment Respiratory/Chest: chest wall non-tender Cardiovascular/Chest: normal peripheral pulses, normal rate Abdomen: normal bowel sounds, soft Extremities: normal range of motion, non-tender 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 Current Medications Medications (Trade) Dose Ordered Sig/Amish Route PRN Reason Start Time Stop Time Status Last Admin Dose Admin Acetaminophen/ Codeine Phosphate (Tylenol #3) 1 tab Q6H PRN ORAL For Pain 04/21/18 17:45 04/28/18 17:44 04/22/18 02:55 Albuterol/ Ipratropium (Albuterol/ Ipratropium) 3 ml Q4H PRN HHN dyspnea 04/19/18 14:15 04/23/18 02:14 04/22/18 09:18 Bisacodyl (Dulcolax) 10 mg DAILYPRN PRN RECTAL Constipation 04/19/18 09:30 05/19/18 09:29 Calcium Carbonate (Tums) 500 mg Q3H PRN ORAL Abdominal cramps 04/20/18 16:30 05/20/18 16:29 04/21/18 21:52 Dextrose (Dextrose 50%) 25 ml Q30M PRN IV Hypoglycemia 04/17/18 18:15 05/16/18 06:14 Dextrose (Dextrose 50%) 50 ml Q30M PRN IV Hypoglycemia 04/17/18 18:15 05/16/18 06:14 Docusate Sodium (Colace) 100 mg TWICE A DAY ORAL 04/17/18 22:00 05/17/18 21:59 04/22/18 08:15 Doxazosin Mesylate (Cardura) 4 mg DAILY ORAL 04/18/18 09:00 05/16/18 08:59 04/22/18 08:15 Heparin Sodium (Porcine) (Heparin 5000 units/ml) 5,000 units EVERY 12 HOURS SUBQ 04/17/18 21:00 05/16/18 08:59 04/22/18 08:20 Levofloxacin (Levaquin) 750 mg EVERY OTHER DAY ORAL 04/20/18 09:00 04/23/18 16:59 04/22/18 08:15 Linezolid (Zyvox) 600 mg EVERY 12 HOURS ORAL 04/17/18 21:00 04/22/18 23:59 04/22/18 08:14 Lorazepam (Ativan) 0.5 mg DAILYPRN PRN ORAL For Anxiety 04/17/18 18:00 04/24/18 17:59 Losartan Potassium (Cozaar) 50 mg DAILY ORAL 04/18/18 09:00 05/16/18 08:59 04/22/18 08:16 Nitroglycerin (Ntg) 0.4 mg Q5M X 3 DOSES PRN SL Prn Chest Pain 04/17/18 17:45 05/16/18 06:14 Polyethylene Glycol (Miralax) 17 gm BEDTIME ORAL 04/21/18 21:00 05/21/18 20:59 Promethazine HCl/ Codeine (Phenergan with Codeine) 5 ml Q6H PRN ORAL cough 04/17/18 18:15 05/16/18 06:14 Sodium Phosphate (Fleet's Sodium Phosl Enema) 133 ml BIDPRN PRN RECTAL Constipation 04/19/18 14:00 05/19/18 13:59 Sucralfate (Carafate) 1 gm BIAC ORAL 04/21/18 16:30 05/21/18 16:29 04/21/18 17:01 Temazepam (Restoril) 15 mg HSPRN PRN ORAL Insomnia 04/17/18 21:00 04/24/18 20:59 Theophylline (Nader-Dur) 100 mg EVERY 12 HOURS ORAL 04/17/18 21:00 05/16/18 08:59 04/22/18 08:14 Tiotropium [place] (Spiriva Inhaler) 1 puff DAILY INH 04/18/18 09:00 05/16/18 08:59 04/22/18 09:12 Paula Light M.D. Apr 22, 2018 11:01
[2018-04-22 12:05] VITALS: BP 105/58
--- NOTE | 2018-04-22 12:59 | Pulmonology Progress Note ---
Assessment/Plan Problems: (1) Acute respiratory failure (2) ATN (acute tubular necrosis) (3) CKD (chronic kidney disease) (4) Severe protein-calorie malnutrition (5) Hypertension (6) PVD (peripheral vascular disease) (7) Emphysema of lung (8) COPD exacerbation Assessment/Plan improving respiratory treatment off steroids high wbc most likely secondary to steroids check cultures po abx dvt prophylaxis pt/ot med/surg Subjective ROS Limited/Unobtainable: No Constitutional: Reports: no symptoms HEENT: Repors: no symptoms Respiratory: Reports: no symptoms Allergies: Coded Allergies: RISPERIDONE (Verified Allergy, Intermediate, 04/27/16) Objective Last 24 Hour Vital Signs Date Time Temp Pulse Resp B/P (MAP) Pulse Ox O2 Delivery O2 Flow Rate FiO2 04/22/18 12:05 97.9 91 18 105/58 (74) 98 04/22/18 09:20 81 18 98 Room Air 21 04/22/18 09:19 98 Room Air 21 04/22/18 09:19 Room Air 21 04/22/18 09:19 81 18 98 Room Air 21 04/22/18 09:18 80 18 98 Room Air 21 04/22/18 08:20 Nasal Cannula 2.0 04/22/18 08:16 109/60 04/22/18 08:00 98.3 86 20 101/58 (72) 98 04/21/18 21:00 Nasal Cannula 2.0 04/21/18 20:11 Room Air 21 04/21/18 20:11 97 Room Air 21 04/21/18 20:00 97.8 85 20 109/60 (76) 100 04/21/18 18:47 97.2 04/21/18 16:00 97.2 100 20 91/55 (67) 98 Intake and Output 04/21/18 04/22/18 19:00 07:00 Intake Total 840 ml Output Total 1100 ml 400 ml Balance -260 ml -400 ml Intake Oral 840 ml Output Urine Total 1100 ml 400 ml # Bowel Movements 1 Objective General Appearance: cachectic Lines, tubes and drains: peripheral HEENT: normocephalic Neck: non-tender Respiratory/Chest: chest wall non-tender, lungs clear Cardiovascular/Chest: normal peripheral pulses Abdomen: normal bowel sounds Genitourinary/Rectal: normal genital exam Extremities: normal range of motion, non-pitting Current Medications Medications (Trade) Dose Ordered Sig/Amish Route PRN Reason Start Time Stop Time Status Last Admin Dose Admin Acetaminophen/ Codeine Phosphate (Tylenol #3) 1 tab Q6H PRN ORAL For Pain 04/21/18 17:45 04/28/18 17:44 04/22/18 02:55 Albuterol/ Ipratropium (Albuterol/ Ipratropium) 3 ml Q4H PRN HHN dyspnea 04/19/18 14:15 04/23/18 02:14 04/22/18 09:18 Bisacodyl (Dulcolax) 10 mg DAILYPRN PRN RECTAL Constipation 04/19/18 09:30 05/19/18 09:29 Calcium Carbonate (Tums) 500 mg Q3H PRN ORAL Abdominal cramps 04/20/18 16:30 05/20/18 16:29 04/21/18 21:52 Dextrose (Dextrose 50%) 25 ml Q30M PRN IV Hypoglycemia 04/17/18 18:15 05/16/18 06:14 Dextrose (Dextrose 50%) 50 ml Q30M PRN IV Hypoglycemia 04/17/18 18:15 05/16/18 06:14 Docusate Sodium (Colace) 100 mg TWICE A DAY ORAL 04/17/18 22:00 05/17/18 21:59 04/22/18 08:15 Doxazosin Mesylate (Cardura) 4 mg DAILY ORAL 04/18/18 09:00 05/16/18 08:59 04/22/18 08:15 Heparin Sodium (Porcine) (Heparin 5000 units/ml) 5,000 units EVERY 12 HOURS SUBQ 04/17/18 21:00 05/16/18 08:59 04/22/18 08:20 Linezolid (Zyvox) 600 mg EVERY 12 HOURS ORAL 04/17/18 21:00 04/22/18 23:59 04/22/18 08:14 Lorazepam (Ativan) 0.5 mg DAILYPRN PRN ORAL For Anxiety 04/17/18 18:00 04/24/18 17:59 Losartan Potassium (Cozaar) 50 mg DAILY ORAL 04/18/18 09:00 05/16/18 08:59 04/22/18 08:16 Nitroglycerin (Ntg) 0.4 mg Q5M X 3 DOSES PRN SL Prn Chest Pain 04/17/18 17:45 05/16/18 06:14 Polyethylene Glycol (Miralax) 17 gm BEDTIME ORAL 04/21/18 21:00 05/21/18 20:59 Promethazine HCl/ Codeine (Phenergan with Codeine) 5 ml Q6H PRN ORAL cough 04/17/18 18:15 05/16/18 06:14 Sodium Phosphate (Fleet's Sodium Phosl Enema) 133 ml BIDPRN PRN RECTAL Constipation 04/19/18 14:00 05/19/18 13:59 Sucralfate (Carafate) 1 gm BIAC ORAL 04/21/18 16:30 05/21/18 16:29 04/21/18 17:01 Temazepam (Restoril) 15 mg HSPRN PRN ORAL Insomnia 04/17/18 21:00 04/24/18 20:59 Theophylline (Nader-Dur) 100 mg EVERY 12 HOURS ORAL 04/17/18 21:00 05/16/18 08:59 04/22/18 08:14 Tiotropium [place] (Spiriva Inhaler) 1 puff DAILY INH 04/18/18 09:00 05/16/18 08:59 04/22/18 09:12 Alejandrina Cee MD Apr 22, 2018 12:59
--- NOTE | 2018-04-22 13:44 | General Progress Note ---
Assessment/Plan Problem List: (1) Pneumonia ICD Codes: J18.9 - Pneumonia, unspecified organism SNOMED: 753215776 (2) CKD (chronic kidney disease) ICD Codes: N18.9 - Chronic kidney disease, unspecified SNOMED: 677775007 (3) ATN (acute tubular necrosis) ICD Codes: N17.0 - Acute kidney failure with tubular necrosis SNOMED: 03698536 (4) Hypertension ICD Codes: I10 - Essential (primary) hypertension SNOMED: 69247076 Status: unchanged Assessment/Plan o2 pulm tx abx ot pt diet cbc bmp am dc plan if clear Subjective Constitutional: Reports: weakness Respiratory: Reports: shortness of breath Allergies: Coded Allergies: RISPERIDONE (Verified Allergy, Intermediate, 04/27/16) All Systems: reviewed and negative except above Subjective o2nc sleepy in bed Objective Last 24 Hour Vital Signs Date Time Temp Pulse Resp B/P (MAP) Pulse Ox O2 Delivery O2 Flow Rate FiO2 04/22/18 12:05 97.9 91 18 105/58 (74) 98 04/22/18 09:20 81 18 98 Room Air 21 04/22/18 09:19 98 Room Air 21 04/22/18 09:19 Room Air 21 04/22/18 09:19 81 18 98 Room Air 21 04/22/18 09:18 80 18 98 Room Air 21 04/22/18 08:20 Nasal Cannula 2.0 04/22/18 08:16 109/60 04/22/18 08:00 98.3 86 20 101/58 (72) 98 04/21/18 21:00 Nasal Cannula 2.0 04/21/18 20:11 Room Air 21 04/21/18 20:11 97 Room Air 21 04/21/18 20:00 97.8 85 20 109/60 (76) 100 04/21/18 18:47 97.2 04/21/18 16:00 97.2 100 20 91/55 (67) 98 Intake and Output 04/21/18 04/22/18 19:00 07:00 Intake Total 840 ml Output Total 1100 ml 400 ml Balance -260 ml -400 ml Intake Oral 840 ml Output Urine Total 1100 ml 400 ml # Bowel Movements 1 Height (Feet): 5 Height (Inches): 10.00 Weight (Pounds): 132 General Appearance: lethargic EENT: normal ENT inspection Neck: normal alignment Cardiovascular: normal peripheral pulses, normal rate, regular rhythm Respiratory/Chest: chest wall non-tender, decreased breath sounds Abdomen: normal bowel sounds, non tender, soft Extremities: normal inspection Edema: no edema noted Arm (L), no edema noted Arm (R), no edema noted Leg (L), no edema noted Leg (R), no edema noted Pedal (L), no edema noted Pedal (R), no edema noted Generalized Neurologic: motor weakness Skin: normal pigmentation, warm/dry Leland Joseph DO Apr 22, 2018 13:44
--- NOTE | 2018-04-22 15:16 | GI Progress Note ---
Assessment/Plan Problems: (1) GERD (gastroesophageal reflux disease) ICD Codes: K21.9 - Gastro-esophageal reflux disease without esophagitis SNOMED: 515466743 (2) Anemia ICD Codes: D64.9 - Anemia, unspecified SNOMED: 061882345 (3) Acute respiratory failure ICD Codes: J96.00 - Acute respiratory failure, unspecified whether with hypoxia or hypercapnia SNOMED: 11635575 (4) Constipation ICD Codes: K59.00 - Constipation, unspecified SNOMED: 65317574 Status: stable, unchanged Status Narrative Discussed with Dr. Sy Assessment/Plan We will consider endoscopy if patient still has persistent epigastric pain PPI, will add Carafate anemia work up OB stool r/o GI bleed monitor H&H, prn transfusions bowel regime ppi fu labs The patient was seen and examined at bedside and all new and available data was reviewed in the patients chart. I agree with the above findings, impression and plan. (Patient seen earlier today. Signature stamp does not reflect patient encounter time.). - Gonzales Sy MD Subjective Subjective Continues to complain of epigastric gastric pain, states is contributed by his GERD Objective Last 24 Hour Vital Signs Date Time Temp Pulse Resp B/P (MAP) Pulse Ox O2 Delivery O2 Flow Rate FiO2 04/22/18 12:05 97.9 91 18 105/58 (74) 98 04/22/18 09:20 81 18 98 Room Air 21 04/22/18 09:19 98 Room Air 21 04/22/18 09:19 Room Air 21 04/22/18 09:19 81 18 98 Room Air 21 04/22/18 09:18 80 18 98 Room Air 21 04/22/18 08:20 Nasal Cannula 2.0 04/22/18 08:16 109/60 04/22/18 08:00 98.3 86 20 101/58 (72) 98 04/21/18 21:00 Nasal Cannula 2.0 04/21/18 20:11 Room Air 21 04/21/18 20:11 97 Room Air 21 04/21/18 20:00 97.8 85 20 109/60 (76) 100 04/21/18 18:47 97.2 04/21/18 16:00 97.2 100 20 91/55 (67) 98 Intake and Output 04/21/18 04/22/18 19:00 07:00 Intake Total 840 ml Output Total 1100 ml 400 ml Balance -260 ml -400 ml Intake Oral 840 ml Output Urine Total 1100 ml 400 ml # Bowel Movements 1 Height (Feet): 5 Height (Inches): 10.00 Weight (Pounds): 132 General Appearance: WD/WN, no apparent distress, alert Cardiovascular: normal rate Respiratory/Chest: normal breath sounds, no respiratory distress Abdominal Exam: normal bowel sounds, non tender, soft Extremities: normal range of motion, non-tender Gail Streeter NP Apr 22, 2018 15:16
[2018-04-22 15:58] VITALS: BP 87/47
[2018-04-22 16:15] VITALS: BP 94/52
[2018-04-22 20:14] VITALS: BP 127/66
[2018-04-22] MEDS: Miralax 17gm pkt ORAL SCH (21:17)
--- NOTE | 2018-04-23 01:30 | Consultation ---
DATE OF CONSULTATION: 04/22/2018 CONSULTING PHYSICIAN: Darrick Robert M.D. HISTORY OF PRESENT ILLNESS: The patient is an 83-year-old patient. This patient has confusion and is disorganized. He came in because of chronic obstructive pulmonary disease. This patient does have a history of anxiety and weakness and lethargy. He seems to be very agitated, irritable on interview as well. He has been having a lot of psychomotor agitation worsened by the stress of his medical illnesses, which is why daily psychiatric consultation is requested. MEDICAL HISTORY: He has a history of diabetes, chronic obstructive pulmonary disease. ALLERGIES: Allergies to Risperdal. SUBSTANCE ABUSE HISTORY: Denies drug and alcohol use. FAMILY PSYCHIATRIC HISTORY: Denies. PAIN ASSESSMENT: 0/10. PERTINENT PSYCHIATRIC HISTORY: He has a history of mental illness, but family psych history denies. SOCIAL HISTORY: He lives in [facility]. Financially supported by [employer] and Medicare. STRENGTHS: He is motivated to get better. WEAKNESSES: He is impulsive. MENTAL STATUS EXAMINATION: This is an 83-year-old male. Appearance is disheveled. Attitude, irritable and agitated. Affect, guarded and restricted. Intellect poor. Mood depressed and anxious. Motor activity, psychomotor agitation. Attention span is poor. Orientation x2. Speech is pressured. Thought process, disorganized, illogical. Insight and judgment is poor. DIAGNOSES: Major depression with psychotic features. MEDICAL: Denies. PSYCHOSOCIAL STRESSORS: Financial, functional impairment is severe. PLAN: My plan for this patient, I am going to treat this patient with medications to help stabilize mood, Ativan and Neurontin. Provided 20 minutes of supportive psychotherapy. 20 minutes of cognitive behavioral therapy provided to this patient to identify his automatic negative thoughts, convert those negative thoughts to more positive thoughts to reduce depression, anxiety, and agitation and help him have a more adaptive behavioral pattern Darrick Robert M.D. DR: CRAIG JOB#: [id number] CC:
[2018-04-23] MEDS: Sucralfate 1gm tab ORAL SCH ×3 (05:24→16:50)
[2018-04-23 08:00] VITALS: BP 128/69
[2018-04-23] MEDS: Theophylline ER 100mg ORAL SCH ×2 (08:26→21:01)
[2018-04-23] MEDS: Doxazosin 4mg tab ORAL SCH (08:26)
[2018-04-23] MEDS: Losartan 50mg tab ORAL SCH (08:27)
[2018-04-23] MEDS: Docusate 100mg cap ORAL SCH ×2 (08:28→17:26)
[2018-04-23] MEDS: Heparin 5000 units/ml inj SUBQ SCH ×2 (08:29→21:00)
[2018-04-23] MEDS: Tylenol #3 tab (300mg/30mg) ORAL PRN ×2 (08:40→18:53)
[2018-04-23 11:36] LABS: BASOPHILS % (AUTO) 0.4 % (0.0-2.0); EOSINOPHILS % (AUTO) 6.1 % (0.0-3.0); HEMATOCRIT 28.5 % (42.0-52.0); HEMOGLOBIN 8.9 G/DL (14.2-18.0); LYMPHOCYTES % (AUTO) 6.7 % (20.0-45.0); MEAN CORPUSCULAR VOLUME 90 FL (80-99); NEUTROPHILS % (AUTO) 82.8 % (45.0-75.0); PLATELET COUNT 471 K/UL (150-450); RED BLOOD COUNT 3.17 M/UL (4.70-6.10); RED CELL DISTRIBUTION WIDTH 16.1 % (11.6-14.8); WHITE BLOOD COUNT 14.7 K/UL (4.8-10.8)
[2018-04-23 12:00] VITALS: BP 95/48
--- NOTE | 2018-04-23 12:13 | GI Progress Note ---
Assessment/Plan Problems: (1) GERD (gastroesophageal reflux disease) ICD Codes: K21.9 - Gastro-esophageal reflux disease without esophagitis SNOMED: 812364767 (2) Anemia ICD Codes: D64.9 - Anemia, unspecified SNOMED: 578271761 (3) Acute respiratory failure ICD Codes: J96.00 - Acute respiratory failure, unspecified whether with hypoxia or hypercapnia SNOMED: 33627592 (4) Constipation ICD Codes: K59.00 - Constipation, unspecified SNOMED: 44912241 Status: stable, unchanged Status Narrative Discussed with Dr. Sy. Assessment/Plan tentative EGD scheduled tomorrow pending discussion with Dr. Sy, will update later today PPI, will add Carafate anemia work up OB stool r/o GI bleed monitor H&H, prn transfusions bowel regime ppi fu labs The patient was seen and examined at bedside and all new and available data was reviewed in the patients chart. I agree with the above findings, impression and plan. (Patient seen earlier today. Signature stamp does not reflect patient encounter time.). - Gonzales Sy MD Subjective Subjective Continues to complain of epigastric gastric pain, states is contributed by his GERD states medication has no effect believes he has an ulcer Objective Last 24 Hour Vital Signs Date Time Temp Pulse Resp B/P (MAP) Pulse Ox O2 Delivery O2 Flow Rate FiO2 04/23/18 09:15 98 Nasal Cannula 2.0 28 04/23/18 09:15 77 16 98 Nasal Cannula 2.0 28 04/23/18 09:15 Nasal Cannula 2.0 28 04/23/18 09:15 75 14 98 Nasal Cannula 2.0 28 04/23/18 09:15 75 14 Nasal Cannula 2.0 28 04/23/18 09:10 97.6 04/23/18 08:27 106/58 04/23/18 08:00 97.6 70 18 128/69 (88) 99 04/23/18 08:00 Nasal Cannula 2.0 04/22/18 21:10 Nasal Cannula 2.0 28 04/22/18 21:10 98 Nasal Cannula 2.0 28 04/22/18 20:14 97.6 71 18 127/66 (86) 99 04/22/18 20:08 Nasal Cannula 2.0 04/22/18 16:15 18 94/52 (66) 98 04/22/18 15:58 97.5 92 17 87/47 (60) 98 Intake and Output 04/22/18 04/23/18 19:00 07:00 Intake Total 480 ml Output Total 775 ml 400 ml Balance -295 ml -400 ml Intake Oral 480 ml Output Urine Total 775 ml 400 ml Laboratory Tests Test 04/23/18 11:10 White Blood Count 14.7 K/UL (4.8-10.8) H Red Blood Count 3.17 M/UL (4.70-6.10) L Hemoglobin 8.9 G/DL (14.2-18.0) L Hematocrit 28.5 % (42.0-52.0) L Mean Corpuscular Volume 90 FL (80-99) Mean Corpuscular Hemoglobin 28.1 PG (27.0-31.0) Mean Corpuscular Hemoglobin Concent 31.3 G/DL (32.0-36.0) L Red Cell Distribution Width 16.1 % (11.6-14.8) H Platelet Count 471 K/UL (150-450) H Mean Platelet Volume 6.0 FL (6.5-10.1) L Neutrophils (%) (Auto) 82.8 % (45.0-75.0) H Lymphocytes (%) (Auto) 6.7 % (20.0-45.0) L Monocytes (%) (Auto) 4.0 % (1.0-10.0) Eosinophils (%) (Auto) 6.1 % (0.0-3.0) H Basophils (%) (Auto) 0.4 % (0.0-2.0) Sodium Level Pending Potassium Level Pending Chloride Level Pending Carbon Dioxide Level Pending Blood Urea Nitrogen Pending Creatinine Pending Estimat Glomerular Filtration Rate Pending Glucose Level Pending Calcium Level Pending Height (Feet): 5 Height (Inches): 10.00 Weight (Pounds): 152 General Appearance: WD/WN, no apparent distress, alert Cardiovascular: normal rate Respiratory/Chest: normal breath sounds, no respiratory distress Abdominal Exam: normal bowel sounds, non tender, soft Extremities: non-tender Gail Streeter NP Apr 23, 2018 12:13
[2018-04-23 12:22] LABS: ANION GAP 5 mmol/L (5-15); BLOOD UREA NITROGEN 23 mg/dL (7-18); CALCIUM 9.2 MG/DL (8.5-10.1); CARBON DIOXIDE 29 MMOL/L (21-32); CHLORIDE 101 MMOL/L (98-107); CREATININE 1.3 MG/DL (0.55-1.30); POTASSIUM 4.7 MMOL/L (3.5-5.1); SODIUM 135 MMOL/L (136-145)
--- NOTE | 2018-04-23 14:01 | Pulmonology Progress Note ---
Assessment/Plan Problems: (1) Acute respiratory failure (2) ATN (acute tubular necrosis) (3) CKD (chronic kidney disease) (4) Severe protein-calorie malnutrition (5) Hypertension (6) PVD (peripheral vascular disease) (7) Emphysema of lung (8) COPD exacerbation Assessment/Plan improving respiratory treatment off steroids check cultures po abx dvt prophylaxis pt/ot med/surg Subjective ROS Limited/Unobtainable: No Constitutional: Reports: no symptoms HEENT: Repors: no symptoms Allergies: Coded Allergies: RISPERIDONE (Verified Allergy, Intermediate, 04/27/16) Objective Last 24 Hour Vital Signs Date Time Temp Pulse Resp B/P (MAP) Pulse Ox O2 Delivery O2 Flow Rate FiO2 04/23/18 09:15 98 Nasal Cannula 2.0 28 04/23/18 09:15 77 16 98 Nasal Cannula 2.0 28 04/23/18 09:15 Nasal Cannula 2.0 28 04/23/18 09:15 75 14 98 Nasal Cannula 2.0 28 04/23/18 09:15 75 14 Nasal Cannula 2.0 28 04/23/18 09:10 97.6 04/23/18 08:27 106/58 04/23/18 08:00 97.6 70 18 128/69 (88) 99 04/23/18 08:00 Nasal Cannula 2.0 04/22/18 21:10 Nasal Cannula 2.0 28 04/22/18 21:10 98 Nasal Cannula 2.0 28 04/22/18 20:14 97.6 71 18 127/66 (86) 99 04/22/18 20:08 Nasal Cannula 2.0 04/22/18 16:15 18 94/52 (66) 98 04/22/18 15:58 97.5 92 17 87/47 (60) 98 Intake and Output 04/22/18 04/23/18 19:00 07:00 Intake Total 480 ml Output Total 775 ml 400 ml Balance -295 ml -400 ml Intake Oral 480 ml Output Urine Total 775 ml 400 ml Objective General Appearance: cachectic Lines, tubes and drains: peripheral HEENT: normocephalic Neck: non-tender Respiratory/Chest: chest wall non-tender, lungs clear Cardiovascular/Chest: normal peripheral pulses Abdomen: normal bowel sounds Genitourinary/Rectal: normal genital exam Extremities: normal range of motion, non-pitting Laboratory Tests 04/23/18 11:10: White Blood Count 14.7H, Red Blood Count 3.17L, Hemoglobin 8.9L, Hematocrit 28.5L, Mean Corpuscular Volume 90, Mean Corpuscular Hemoglobin 28.1, Mean Corpuscular Hemoglobin Concent 31.3L, Red Cell Distribution Width 16.1H, Platelet Count 471H, Mean Platelet Volume 6.0L, Neutrophils (%) (Auto) 82.8H, Lymphocytes (%) (Auto) 6.7L, Monocytes (%) (Auto) 4.0, Eosinophils (%) (Auto) 6.1H, Basophils (%) (Auto) 0.4, Sodium Level 135L, Potassium Level 4.7, Chloride Level 101, Carbon Dioxide Level 29, Anion Gap 5, Blood Urea Nitrogen 23H, Creatinine 1.3, Estimat Glomerular Filtration Rate , Glucose Level 97, Calcium Level 9.2 Current Medications Medications (Trade) Dose Ordered Sig/Amish Route PRN Reason Start Time Stop Time Status Last Admin Dose Admin Acetaminophen/ Codeine Phosphate (Tylenol #3) 1 tab Q6H PRN ORAL For Pain 04/21/18 17:45 04/28/18 17:44 04/23/18 08:40 Bisacodyl (Dulcolax) 10 mg DAILYPRN PRN RECTAL Constipation 04/19/18 09:30 05/19/18 09:29 Calcium Carbonate (Tums) 500 mg Q3H PRN ORAL Abdominal cramps 04/20/18 16:30 05/20/18 16:29 04/21/18 21:52 Dextrose (Dextrose 50%) 25 ml Q30M PRN IV Hypoglycemia 04/17/18 18:15 05/16/18 06:14 Dextrose (Dextrose 50%) 50 ml Q30M PRN IV Hypoglycemia 04/17/18 18:15 05/16/18 06:14 Docusate Sodium (Colace) 100 mg TWICE A DAY ORAL 04/17/18 22:00 05/17/18 21:59 04/23/18 08:28 Doxazosin Mesylate (Cardura) 4 mg DAILY ORAL 04/18/18 09:00 05/16/18 08:59 04/23/18 08:26 Heparin Sodium (Porcine) (Heparin 5000 units/ml) 5,000 units EVERY 12 HOURS SUBQ 04/17/18 21:00 05/16/18 08:59 04/23/18 08:29 Lorazepam (Ativan) 0.5 mg DAILYPRN PRN ORAL For Anxiety 04/17/18 18:00 04/24/18 17:59 Losartan Potassium (Cozaar) 50 mg DAILY ORAL 04/18/18 09:00 05/16/18 08:59 04/22/18 08:16 Nitroglycerin (Ntg) 0.4 mg Q5M X 3 DOSES PRN SL Prn Chest Pain 04/17/18 17:45 05/16/18 06:14 Polyethylene Glycol (Miralax) 17 gm BEDTIME ORAL 04/21/18 21:00 05/21/18 20:59 04/22/18 21:17 Promethazine HCl/ Codeine (Phenergan with Codeine) 5 ml Q6H PRN ORAL cough 04/17/18 18:15 05/16/18 06:14 Risperidone (RisperDAL) 0.5 mg BID ORAL 04/22/18 18:00 05/22/18 17:59 Sodium Phosphate (Fleet's Sodium Phosl Enema) 133 ml BIDPRN PRN RECTAL Constipation 04/19/18 14:00 05/19/18 13:59 Sucralfate (Carafate) 1 gm BIAC ORAL 04/21/18 16:30 05/21/18 16:29 04/23/18 05:24 Temazepam (Restoril) 15 mg HSPRN PRN ORAL Insomnia 04/17/18 21:00 04/24/18 20:59 Theophylline (Nader-Dur) 100 mg EVERY 12 HOURS ORAL 04/17/18 21:00 05/16/18 08:59 04/23/18 08:26 Tiotropium [place] (Spiriva Inhaler) 1 puff DAILY INH 04/18/18 09:00 05/16/18 08:59 04/22/18 09:12 Alejandrina Cee MD Apr 23, 2018 14:01
--- NOTE | 2018-04-23 14:37 | General Progress Note ---
Assessment/Plan Problem List: (1) Pneumonia ICD Codes: J18.9 - Pneumonia, unspecified organism SNOMED: 370802172 (2) CKD (chronic kidney disease) ICD Codes: N18.9 - Chronic kidney disease, unspecified SNOMED: 729264843 (3) ATN (acute tubular necrosis) ICD Codes: N17.0 - Acute kidney failure with tubular necrosis SNOMED: 79508879 (4) Hypertension ICD Codes: I10 - Essential (primary) hypertension SNOMED: 15669475 Status: unchanged Assessment/Plan o2 pulm tx abx ot pt diet cbc bmp am dc plan if clear Subjective Constitutional: Reports: weakness Respiratory: Reports: shortness of breath Allergies: Coded Allergies: RISPERIDONE (Verified Allergy, Intermediate, 04/27/16) All Systems: reviewed and negative except above Subjective o2nc sleepy in bed Objective Last 24 Hour Vital Signs Date Time Temp Pulse Resp B/P (MAP) Pulse Ox O2 Delivery O2 Flow Rate FiO2 04/23/18 09:15 98 Nasal Cannula 2.0 28 04/23/18 09:15 77 16 98 Nasal Cannula 2.0 28 04/23/18 09:15 Nasal Cannula 2.0 28 04/23/18 09:15 75 14 98 Nasal Cannula 2.0 28 04/23/18 09:15 75 14 Nasal Cannula 2.0 28 04/23/18 09:10 97.6 04/23/18 08:27 106/58 04/23/18 08:00 97.6 70 18 128/69 (88) 99 04/23/18 08:00 Nasal Cannula 2.0 04/22/18 21:10 Nasal Cannula 2.0 28 04/22/18 21:10 98 Nasal Cannula 2.0 28 04/22/18 20:14 97.6 71 18 127/66 (86) 99 04/22/18 20:08 Nasal Cannula 2.0 04/22/18 16:15 18 94/52 (66) 98 04/22/18 15:58 97.5 92 17 87/47 (60) 98 Intake and Output 04/22/18 04/23/18 19:00 07:00 Intake Total 480 ml Output Total 775 ml 400 ml Balance -295 ml -400 ml Intake Oral 480 ml Output Urine Total 775 ml 400 ml Laboratory Tests 04/23/18 11:10: White Blood Count 14.7H, Red Blood Count 3.17L, Hemoglobin 8.9L, Hematocrit 28.5L, Mean Corpuscular Volume 90, Mean Corpuscular Hemoglobin 28.1, Mean Corpuscular Hemoglobin Concent 31.3L, Red Cell Distribution Width 16.1H, Platelet Count 471H, Mean Platelet Volume 6.0L, Neutrophils (%) (Auto) 82.8H, Lymphocytes (%) (Auto) 6.7L, Monocytes (%) (Auto) 4.0, Eosinophils (%) (Auto) 6.1H, Basophils (%) (Auto) 0.4, Sodium Level 135L, Potassium Level 4.7, Chloride Level 101, Carbon Dioxide Level 29, Anion Gap 5, Blood Urea Nitrogen 23H, Creatinine 1.3, Estimat Glomerular Filtration Rate , Glucose Level 97, Calcium Level 9.2 Height (Feet): 5 Height (Inches): 10.00 Weight (Pounds): 152 General Appearance: lethargic EENT: normal ENT inspection Neck: normal alignment Cardiovascular: normal peripheral pulses, normal rate, regular rhythm Respiratory/Chest: chest wall non-tender, decreased breath sounds Abdomen: normal bowel sounds, non tender, soft Extremities: normal inspection Edema: no edema noted Arm (L), no edema noted Arm (R), no edema noted Leg (L), no edema noted Leg (R), no edema noted Pedal (L), no edema noted Pedal (R), no edema noted Generalized Neurologic: motor weakness Skin: normal pigmentation, warm/dry Leland Joseph DO Apr 23, 2018 14:37
--- NOTE | 2018-04-23 15:02 | Infectious Diseases Prog Note ---
Assessment/Plan Assessment/Plan PNA (+cough, fever, SOB) -04/20 CXR: Hyperinflated lungs of COPD. Interstitial thickening, improved in the right upper lobe compared to prior study. 2 cm left infrahilar opacity, consider CT for further evaluation. -CXR Right upper lobe and left suprahilar interstitial opacities. Uncertain as to whether these represent progressive chronic interstitial fibrotic changes versus acute infiltrates. Bilateral basilar scarring or atelectasis. 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 Will continue to follow along with you. Subjective Allergies: Coded Allergies: RISPERIDONE (Verified Allergy, Intermediate, 04/27/16) Subjective afebrile at RA feeling better no cbc today Objective Vital Signs Last 24 Hour Vital Signs Date Time Temp Pulse Resp B/P (MAP) Pulse Ox O2 Delivery O2 Flow Rate FiO2 04/23/18 09:15 98 Nasal Cannula 2.0 28 04/23/18 09:15 77 16 98 Nasal Cannula 2.0 28 04/23/18 09:15 Nasal Cannula 2.0 28 04/23/18 09:15 75 14 98 Nasal Cannula 2.0 28 04/23/18 09:15 75 14 Nasal Cannula 2.0 28 04/23/18 09:10 97.6 04/23/18 08:27 106/58 04/23/18 08:00 97.6 70 18 128/69 (88) 99 04/23/18 08:00 Nasal Cannula 2.0 04/22/18 21:10 Nasal Cannula 2.0 28 04/22/18 21:10 98 Nasal Cannula 2.0 28 04/22/18 20:14 97.6 71 18 127/66 (86) 99 04/22/18 20:08 Nasal Cannula 2.0 04/22/18 16:15 18 94/52 (66) 98 04/22/18 15:58 97.5 92 17 87/47 (60) 98 Height (Feet): 5 Height (Inches): 10.00 Weight (Pounds): 152 Objective General Appearance: cachetic Lines, tubes and drains: peripheral HEENT: normocephalic, atraumatic Neck: non-tender, normal alignment Respiratory/Chest: chest wall non-tender Cardiovascular/Chest: normal peripheral pulses, normal rate Abdomen: normal bowel sounds, soft Extremities: normal range of motion, non-tender 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 Laboratory Tests Test 04/23/18 11:10 White Blood Count 14.7 K/UL (4.8-10.8) H Red Blood Count 3.17 M/UL (4.70-6.10) L Hemoglobin 8.9 G/DL (14.2-18.0) L Hematocrit 28.5 % (42.0-52.0) L Mean Corpuscular Volume 90 FL (80-99) Mean Corpuscular Hemoglobin 28.1 PG (27.0-31.0) Mean Corpuscular Hemoglobin Concent 31.3 G/DL (32.0-36.0) L Red Cell Distribution Width 16.1 % (11.6-14.8) H Platelet Count 471 K/UL (150-450) H Mean Platelet Volume 6.0 FL (6.5-10.1) L Neutrophils (%) (Auto) 82.8 % (45.0-75.0) H Lymphocytes (%) (Auto) 6.7 % (20.0-45.0) L Monocytes (%) (Auto) 4.0 % (1.0-10.0) Eosinophils (%) (Auto) 6.1 % (0.0-3.0) H Basophils (%) (Auto) 0.4 % (0.0-2.0) Sodium Level 135 MMOL/L (136-145) L Potassium Level 4.7 MMOL/L (3.5-5.1) Chloride Level 101 MMOL/L (98-107) Carbon Dioxide Level 29 MMOL/L (21-32) Anion Gap 5 mmol/L (5-15) Blood Urea Nitrogen 23 mg/dL (7-18) H Creatinine 1.3 MG/DL (0.55-1.30) Estimat Glomerular Filtration Rate mL/min (>60) Glucose Level 97 MG/DL (74-106) Calcium Level 9.2 MG/DL (8.5-10.1) Current Medications Medications (Trade) Dose Ordered Sig/Amish Route PRN Reason Start Time Stop Time Status Last Admin Dose Admin Acetaminophen/ Codeine Phosphate (Tylenol #3) 1 tab Q6H PRN ORAL For Pain 04/21/18 17:45 04/28/18 17:44 04/23/18 08:40 Bisacodyl (Dulcolax) 10 mg DAILYPRN PRN RECTAL Constipation 04/19/18 09:30 05/19/18 09:29 Calcium Carbonate (Tums) 500 mg Q3H PRN ORAL Abdominal cramps 04/20/18 16:30 05/20/18 16:29 04/21/18 21:52 Dextrose (Dextrose 50%) 25 ml Q30M PRN IV Hypoglycemia 04/17/18 18:15 05/16/18 06:14 Dextrose (Dextrose 50%) 50 ml Q30M PRN IV Hypoglycemia 04/17/18 18:15 05/16/18 06:14 Docusate Sodium (Colace) 100 mg TWICE A DAY ORAL 04/17/18 22:00 05/17/18 21:59 04/23/18 08:28 Doxazosin Mesylate (Cardura) 4 mg DAILY ORAL 04/18/18 09:00 05/16/18 08:59 04/23/18 08:26 Heparin Sodium (Porcine) (Heparin 5000 units/ml) 5,000 units EVERY 12 HOURS SUBQ 04/17/18 21:00 05/16/18 08:59 04/23/18 08:29 Lorazepam (Ativan) 0.5 mg DAILYPRN PRN ORAL For Anxiety 04/17/18 18:00 04/24/18 17:59 Losartan Potassium (Cozaar) 50 mg DAILY ORAL 04/18/18 09:00 05/16/18 08:59 04/22/18 08:16 Nitroglycerin (Ntg) 0.4 mg Q5M X 3 DOSES PRN SL Prn Chest Pain 04/17/18 17:45 05/16/18 06:14 Polyethylene Glycol (Miralax) 17 gm BEDTIME ORAL 04/21/18 21:00 05/21/18 20:59 04/22/18 21:17 Promethazine HCl/ Codeine (Phenergan with Codeine) 5 ml Q6H PRN ORAL cough 04/17/18 18:15 05/16/18 06:14 Risperidone (RisperDAL) 0.5 mg BID ORAL 04/22/18 18:00 05/22/18 17:59 Sodium Phosphate (Fleet's Sodium Phosl Enema) 133 ml BIDPRN PRN RECTAL Constipation 04/19/18 14:00 05/19/18 13:59 Sucralfate (Carafate) 1 gm BIAC ORAL 04/21/18 16:30 05/21/18 16:29 04/23/18 05:24 Temazepam (Restoril) 15 mg HSPRN PRN ORAL Insomnia 04/17/18 21:00 04/24/18 20:59 Theophylline (Nader-Dur) 100 mg EVERY 12 HOURS ORAL 04/17/18 21:00 05/16/18 08:59 04/23/18 08:26 Tiotropium Johnston (Spiriva Inhaler) 1 puff DAILY INH 04/18/18 09:00 05/16/18 08:59 04/22/18 09:12 Paula Light M.D. Apr 23, 2018 15:02
[2018-04-23 15:55] VITALS: BP 93/64
--- NOTE | 2018-04-23 16:39 | Nephrology Progress Note ---
Assessment/Plan Assessment 1. Acute renal failure. 2. 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 3. Hypokalemia. 4. Malnutrition. 5. Dehydration. Plan continue current med monitoring renal function nutritional support avoid NSAID Subjective Constitutional: Reports: no symptoms HEENT: Reports: no symptoms Genitourinary: Reports: no symptoms Neurologic/Psychiatric: Reports: no symptoms Subjective alert and awake no complaints no complaints Objective Objective Last 24 Hour Vital Signs Date Time Temp Pulse Resp B/P (MAP) Pulse Ox O2 Delivery O2 Flow Rate FiO2 04/23/18 15:55 98.1 94 18 93/64 (74) 99 04/23/18 12:00 97.9 18 95/48 (64) 99 04/23/18 09:15 98 Nasal Cannula 2.0 28 04/23/18 09:15 77 16 98 Nasal Cannula 2.0 28 04/23/18 09:15 Nasal Cannula 2.0 28 04/23/18 09:15 75 14 98 Nasal Cannula 2.0 28 04/23/18 09:15 75 14 Nasal Cannula 2.0 28 04/23/18 09:10 97.6 04/23/18 08:27 106/58 04/23/18 08:00 97.6 70 18 128/69 (88) 99 04/23/18 08:00 Nasal Cannula 2.0 04/22/18 21:10 Nasal Cannula 2.0 28 04/22/18 21:10 98 Nasal Cannula 2.0 28 04/22/18 20:14 97.6 71 18 127/66 (86) 99 04/22/18 20:08 Nasal Cannula 2.0 Intake and Output 04/22/18 04/23/18 19:00 07:00 Intake Total 480 ml Output Total 775 ml 400 ml Balance -295 ml -400 ml Intake Oral 480 ml Output Urine Total 775 ml 400 ml Laboratory Tests 04/23/18 11:10: White Blood Count 14.7H, Red Blood Count 3.17L, Hemoglobin 8.9L, Hematocrit 28.5L, Mean Corpuscular Volume 90, Mean Corpuscular Hemoglobin 28.1, Mean Corpuscular Hemoglobin Concent 31.3L, Red Cell Distribution Width 16.1H, Platelet Count 471H, Mean Platelet Volume 6.0L, Neutrophils (%) (Auto) 82.8H, Lymphocytes (%) (Auto) 6.7L, Monocytes (%) (Auto) 4.0, Eosinophils (%) (Auto) 6.1H, Basophils (%) (Auto) 0.4, Sodium Level 135L, Potassium Level 4.7, Chloride Level 101, Carbon Dioxide Level 29, Anion Gap 5, Blood Urea Nitrogen 23H, Creatinine 1.3, Estimat Glomerular Filtration Rate , Glucose Level 97, Calcium Level 9.2 Height (Feet): 5 Height (Inches): 10.00 Weight (Pounds): 152 Objective HEAD AND NECK: No JVD. No LAD. No thyromegaly. Extraocular movement intact. Pupils are reactive to light and accommodation. LUNGS: Clear to auscultation. CARDIAC: Regular rate and rhythm. S1 and S2. No murmur. No rub. ABDOMEN: Soft, nontender, and nondistended. No organomegaly. EXTREMITIES: Trace edema. No clubbing. No cyanosis. Cranial nerves II through XII within normal limit. Upper and lower extremities are grossly intact. Cecelia Quintana MD Apr 23, 2018 16:39
[2018-04-23] MEDS ORDERED: Miralax 17gm pkt ORAL SCH (17:00)
--- NOTE | 2018-04-23 17:19 | Cardiology Progress Note ---
Assessment/Plan Assessment/Plan 1. Dyspnea, most likely due to acute exacerbation of COPD. refused 2D-echo. Avoid B-blockers at this time. 2. DM, diet controlled, not on active diabetic regimen. 3. HTN, continue losartan. 4. GERD 5. Anemia. Subjective Subjective No cardiac events noted. Objective Last 24 Hour Vital Signs Date Time Temp Pulse Resp B/P (MAP) Pulse Ox O2 Delivery O2 Flow Rate FiO2 04/23/18 15:55 98.1 94 18 93/64 (74) 99 04/23/18 12:00 97.9 18 95/48 (64) 99 04/23/18 09:15 98 Nasal Cannula 2.0 28 04/23/18 09:15 77 16 98 Nasal Cannula 2.0 28 04/23/18 09:15 Nasal Cannula 2.0 28 04/23/18 09:15 75 14 98 Nasal Cannula 2.0 28 04/23/18 09:15 75 14 Nasal Cannula 2.0 28 04/23/18 09:10 97.6 04/23/18 08:27 106/58 04/23/18 08:00 97.6 70 18 128/69 (88) 99 04/23/18 08:00 Nasal Cannula 2.0 04/22/18 21:10 Nasal Cannula 2.0 28 04/22/18 21:10 98 Nasal Cannula 2.0 28 04/22/18 20:14 97.6 71 18 127/66 (86) 99 04/22/18 20:08 Nasal Cannula 2.0 Intake and Output 04/22/18 04/23/18 19:00 07:00 Intake Total 480 ml Output Total 775 ml 400 ml Balance -295 ml -400 ml Intake Oral 480 ml Output Urine Total 775 ml 400 ml 2D Echo: Refused ECHO Laboratory Tests Test 04/23/18 11:10 White Blood Count 14.7 K/UL (4.8-10.8) H Red Blood Count 3.17 M/UL (4.70-6.10) L Hemoglobin 8.9 G/DL (14.2-18.0) L Hematocrit 28.5 % (42.0-52.0) L Mean Corpuscular Volume 90 FL (80-99) Mean Corpuscular Hemoglobin 28.1 PG (27.0-31.0) Mean Corpuscular Hemoglobin Concent 31.3 G/DL (32.0-36.0) L Red Cell Distribution Width 16.1 % (11.6-14.8) H Platelet Count 471 K/UL (150-450) H Mean Platelet Volume 6.0 FL (6.5-10.1) L Neutrophils (%) (Auto) 82.8 % (45.0-75.0) H Lymphocytes (%) (Auto) 6.7 % (20.0-45.0) L Monocytes (%) (Auto) 4.0 % (1.0-10.0) Eosinophils (%) (Auto) 6.1 % (0.0-3.0) H Basophils (%) (Auto) 0.4 % (0.0-2.0) Sodium Level 135 MMOL/L (136-145) L Potassium Level 4.7 MMOL/L (3.5-5.1) Chloride Level 101 MMOL/L (98-107) Carbon Dioxide Level 29 MMOL/L (21-32) Anion Gap 5 mmol/L (5-15) Blood Urea Nitrogen 23 mg/dL (7-18) H Creatinine 1.3 MG/DL (0.55-1.30) Estimat Glomerular Filtration Rate mL/min (>60) Glucose Level 97 MG/DL (74-106) Calcium Level 9.2 MG/DL (8.5-10.1) Objective HEENT: atraumatic, normocephalic, PERRLA, EOMI. Neck: normal JVP, no carotid bruit. Respiratory: Diminished BS both lungs Cardiovascular: Distant heart sounds, regular rate and rhythm Gastrointestinal: normal inspection, normal bowel sounds, non tender, soft, no guarding, no hernia Musculoskeletal: no edema, clubbing or cyanosis. Ralph Jo MD Apr 23, 2018 17:19
[2018-04-23 20:00] VITALS: BP 106/59
--- NOTE | 2018-04-23 20:45 | Progress Note ---
DATE: 04/23/2018 SUBJECTIVE: The patient is an 83-year-old male patient with COPD disorder. This patient continues to have some confusion and disorganized thought process and mood lability worsened by the stress of his medical illness. That is why, his attending physician has requested daily psychiatric consultation. He still has some mood lability, confusion, and disorganized thought process. Cognition has declined below his baseline, worsened by the stress of his medical illness. That is why, his attending has requested daily psychiatric consultation. MENTAL STATUS EXAMINATION: This is an 83-year-old male. Appearance is disheveled. Attitude, irritable and agitated. Affect, guarded and restricted. Intellect poor. Mood, depressed and anxious. Motor activity, psychomotor agitation. Attention span is poor. Orientation x2. Speech is pressured. Thought process, disorganized thought process. Thought content, auditory hallucinations and paranoid delusions. Insight and judgment is poor. DIAGNOSIS: Schizoaffective, bipolar type. PLAN: I am going to treat this patient with psychotropic meds to stabilize his mood and reduce agitation. Provided him with 20 minutes of cognitive behavioral therapy to help him identify his automatic negative thoughts and help him convert those negative thoughts to more positive thinking to reduce depression, anxiety, and suicidality. Chart reviewed. Discussed with staff. Seen and assessed in his room. Darrick Robert M.D. DR: NEFTALY JOB#: [id number] CC:
[2018-04-23] MEDS: Miralax 17gm pkt ORAL SCH (21:01)
--- NOTE | 2018-04-23 22:49 | Consultation ---
History of Present Illness General Date patient seen: Apr 23, 2018 Chief Complaint: Fever Referring physician: CARLY DEAN Reason for Consultation: sacral wound Present Illness HPI 83 year old male with multiple medical comorbidities currently admitted for medical care and management. on admission noted to have abnormal sacral wound. surgery called to evaluate and assist with care / management. patient seen, chart reviewed, patient examined. please refer to A/P for details Allergies: Coded Allergies: RISPERIDONE (Verified Allergy, Intermediate, 04/27/16) Medication History Scheduled Aspirin* (Aspirin*), 81 MG ORAL DAILY, (Reported) Atorvastatin Calcium* (Lipitor*), 80 MG ORAL BEDTIME, (Reported) Calcium Carbonate (Tums), 200 MG PO Q4HR, (Reported) Cetirizine Hcl* (Zyrtec*), 10 MG ORAL DAILY, (Reported) Cholecalciferol (Vitamin D3) (Vitamin D-400*), 400 UNITS ORAL DAILY, (Reported) Cyanocobalamin (Vitamin B-12)* (Vitamin B-12*), 500 MCG ORAL DAILY, (Reported) Docusate Sodium* (Docusate Sodium*), 100 MG ORAL TWICE A DAY, (Reported) Doxazosin Mesylate* (Cardura*), 6 MG ORAL BEDTIME, (Reported) Doxazosin Mesylate* (Cardura*), 4 MG ORAL HS, (Reported) Ferrous Sulfate* (Ferrous Sulfate*), 325 MG ORAL THREE TIMES A DAY, (Reported) Fluticasone Propionate (Flonase Allergy Relief), 9.9 ML NS BID, (Reported) Fluticasone/Salmeterol (Advair 250-50 Diskus), 1 PUFF INH EVERY 12 HOURS, ( Reported) Guaifenesin* (Adult Wal-Tussin*), 30 ML ORAL EVERY 6 HOURS, (Reported) Insulin Glargine (Lantus), 10 SUBQ DAILY, (Reported) Ipratropium/Albuterol Sulfate (DuoNeb 0.5-3(2.5)mg/3ml), 3 ML HHN Q4HR, ( Reported) Lansoprazole* (Prevacid*), 30 MG ORAL BID, (Reported) Losartan Potassium* (Losartan Potassium*), 50 MG ORAL DAILY, (Reported) Multivitamins* (Multivitamins*), 1 TAB ORAL DAILY, (Reported) Ondansetron Hcl* (Zofran*), 8 MG ORAL EVERY 4 HOURS, (Reported) Pantoprazole* (Protonix*), 40 MG ORAL EVERY 12 HOURS, (Reported) Prednisone (Prednisone), 60 MG PO DAILY, (Reported) Sennosides (Senna), 17.2 MG PO BEDTIME, (Reported) Tiotropium Burt* (Spiriva*), 1 PUFF INH DAILY, (Reported) Scheduled PRN Lorazepam* (Ativan*), 0.5 MG ORAL DAILY PRN for For Anxiety, (Reported) Meclizine Hcl* (Meclizine*), 25 MG ORAL THREE TIMES A DAY PRN for for dizziness, (Reported) Patient History History Provided By: Patient, Medical Record, PMD Healthcare decision maker Resuscitation status Do Not Resuscitate Advanced Directive on File No Past Medical/Surgical History Past Medical/Surgical History: (1) Wound of sacral region (2) Emphysema of lung (3) PVD (peripheral vascular disease) (4) Hypertension (5) Severe protein-calorie malnutrition (6) Acute respiratory failure (7) ATN (acute tubular necrosis) (8) CKD (chronic kidney disease) (9) COPD exacerbation (10) Pneumonia (11) Anemia (12) GERD (gastroesophageal reflux disease) (13) Constipation Review of Systems All Other Systems: negative except mentioned in HPI Physical Exam General Appearance: no apparent distress Lines, tubes and drains: peripheral HEENT: mucous membranes moist Neck: normal inspection Respiratory/Chest: normal breath sounds, no respiratory distress Cardiovascular/Chest: normal rate Abdomen: soft, no organomegaly, no mass Extremities: normal inspection Skin Exam: warm/dry, other Neurologic: alert, responsive Last 24 Hour Vital Signs Date Time Temp Pulse Resp B/P (MAP) Pulse Ox O2 Delivery O2 Flow Rate FiO2 04/23/18 21:13 Nasal Cannula 2.0 04/23/18 21:04 Nasal Cannula 2.0 28 04/23/18 21:04 98 Nasal Cannula 2.0 28 04/23/18 20:00 98.5 96 19 106/59 (75) 100 04/23/18 19:28 98.1 04/23/18 15:55 98.1 94 18 93/64 (74) 99 04/23/18 12:00 97.9 18 95/48 (64) 99 04/23/18 09:15 98 Nasal Cannula 2.0 28 04/23/18 09:15 77 16 98 Nasal Cannula 2.0 28 04/23/18 09:15 Nasal Cannula 2.0 28 04/23/18 09:15 75 14 98 Nasal Cannula 2.0 28 04/23/18 09:15 75 14 Nasal Cannula 2.0 28 04/23/18 08:27 106/58 04/23/18 08:00 97.6 70 18 128/69 (88) 99 04/23/18 08:00 Nasal Cannula 2.0 Intake and Output 04/22/18 04/23/18 18:59 06:59 Intake Total 480 ml Output Total 775 ml 400 ml Balance -295 ml -400 ml Intake Oral 480 ml Output Urine Total 775 ml 400 ml Laboratory Tests Test 04/23/18 11:10 White Blood Count 14.7 K/UL (4.8-10.8) H Red Blood Count 3.17 M/UL (4.70-6.10) L Hemoglobin 8.9 G/DL (14.2-18.0) L Hematocrit 28.5 % (42.0-52.0) L Mean Corpuscular Volume 90 FL (80-99) Mean Corpuscular Hemoglobin 28.1 PG (27.0-31.0) Mean Corpuscular Hemoglobin Concent 31.3 G/DL (32.0-36.0) L Red Cell Distribution Width 16.1 % (11.6-14.8) H Platelet Count 471 K/UL (150-450) H Mean Platelet Volume 6.0 FL (6.5-10.1) L Neutrophils (%) (Auto) 82.8 % (45.0-75.0) H Lymphocytes (%) (Auto) 6.7 % (20.0-45.0) L Monocytes (%) (Auto) 4.0 % (1.0-10.0) Eosinophils (%) (Auto) 6.1 % (0.0-3.0) H Basophils (%) (Auto) 0.4 % (0.0-2.0) Sodium Level 135 MMOL/L (136-145) L Potassium Level 4.7 MMOL/L (3.5-5.1) Chloride Level 101 MMOL/L (98-107) Carbon Dioxide Level 29 MMOL/L (21-32) Anion Gap 5 mmol/L (5-15) Blood Urea Nitrogen 23 mg/dL (7-18) H Creatinine 1.3 MG/DL (0.55-1.30) Estimat Glomerular Filtration Rate mL/min (>60) Glucose Level 97 MG/DL (74-106) Calcium Level 9.2 MG/DL (8.5-10.1) Height (Feet): 5 Height (Inches): 10.00 Weight (Pounds): 152 Medications Current Medications Medications (Trade) Dose Ordered Sig/Amish Route PRN Reason Start Time Stop Time Status Last Admin Dose Admin Acetaminophen/ Codeine Phosphate (Tylenol #3) 1 tab Q6H PRN ORAL For Pain 04/21/18 17:45 04/28/18 17:44 04/23/18 18:53 Bisacodyl (Dulcolax) 10 mg DAILYPRN PRN RECTAL Constipation 04/19/18 09:30 05/19/18 09:29 Calcium Carbonate (Tums) 500 mg Q3H PRN ORAL Abdominal cramps 04/20/18 16:30 05/20/18 16:29 04/21/18 21:52 Dextrose (Dextrose 50%) 25 ml Q30M PRN IV Hypoglycemia 04/17/18 18:15 05/16/18 06:14 Dextrose (Dextrose 50%) 50 ml Q30M PRN IV Hypoglycemia 04/17/18 18:15 05/16/18 06:14 Docusate Sodium (Colace) 100 mg TWICE A DAY ORAL 04/17/18 22:00 05/17/18 21:59 04/23/18 17:26 Doxazosin Mesylate (Cardura) 4 mg DAILY ORAL 04/18/18 09:00 05/16/18 08:59 04/23/18 08:26 Heparin Sodium (Porcine) (Heparin 5000 units/ml) 5,000 units EVERY 12 HOURS SUBQ 04/17/18 21:00 05/16/18 08:59 04/23/18 08:29 Lorazepam (Ativan) 0.5 mg DAILYPRN PRN ORAL For Anxiety 04/17/18 18:00 04/24/18 17:59 Losartan Potassium (Cozaar) 50 mg DAILY ORAL 04/18/18 09:00 05/16/18 08:59 04/22/18 08:16 Nitroglycerin (Ntg) 0.4 mg Q5M X 3 DOSES PRN SL Prn Chest Pain 04/17/18 17:45 05/16/18 06:14 Polyethylene Glycol (Miralax) 17 gm BEDTIME ORAL 04/21/18 21:00 05/21/18 20:59 04/23/18 21:01 Promethazine HCl/ Codeine (Phenergan with Codeine) 5 ml Q6H PRN ORAL cough 04/17/18 18:15 05/16/18 06:14 Risperidone (RisperDAL) 0.5 mg BID ORAL 04/22/18 18:00 05/22/18 17:59 Sodium Phosphate (Fleet's Sodium Phosl Enema) 133 ml BIDPRN PRN RECTAL Constipation 04/19/18 14:00 05/19/18 13:59 Sucralfate (Carafate) 1 gm BIAC ORAL 04/21/18 16:30 05/21/18 16:29 04/23/18 05:24 Temazepam (Restoril) 15 mg HSPRN PRN ORAL Insomnia 04/17/18 21:00 04/24/18 20:59 Theophylline (Nader-Dur) 100 mg EVERY 12 HOURS ORAL 04/17/18 21:00 05/16/18 08:59 04/23/18 21:01 Tiotropium Burt (Spiriva Inhaler) 1 puff DAILY INH 04/18/18 09:00 05/16/18 08:59 04/22/18 09:12 Assessment/Plan Problem List: (1) Wound of sacral region Assessment & Plan: PT presents with stage 3 full thickness injury to sacrococcygeal area with 100% yellow slough(L)0.6cm x (W)0.5cm with non- blanchable erythema periwound area measuring (L)9.5cm x (W)10.2cm .Periwound without induration or elevation in skin temp.Site tender when minimally palpated. When asked about when he first noted it, patient stated he has had wound for 10 months and it started when he began to scratch sacral area. He felt the area to be itching and states that for a few days he scratched it hard. since wound has opened and has been a small <1cm non healing area for months. L heel boggy with non-blanchable erythema .Non-tender when palpated R heel pink and easily blanches. Nurse on unit reports pt is resistive to care and to being repositioned. Pt educated on further wound prevention.Education provided on comorbidities which may contribute to further skin decline. Encouraged to frequently turn, and or off-lifting buttocks every half hour as pt intolerant to head of bed at 30 degrees and keeps head of bed in high fowlers. Pt verbalized understanding and agreed to comply. Wound present upon admission and stated as per patient to be self inflicted. states present for months. may be partly true but also likely slowly healing from pressure and will become as worsening decubitus ulcer if patient does not participate in care will assist in care and treatment plan while in hospital thank you Tx.Plan: Cleanse sacral wound with Saline.Apply Therahoney .Cavilon periwound .Cover with Optifoam drsg daily and prn. Support surface mattress. Encourage and assist as needed to reposition as frequently as tolerated. Cavilon wipes to Both heels .Off-load heels with pillow. ICD Codes: S31.000A - Unspecified open wound of lower back and pelvis without penetration into retroperitoneum, initial encounter SNOMED: [id number] Qualifiers: Qualified Codes: S31.000A - Unspecified open wound of lower back and pelvis without penetration into retroperitoneum, initial encounter Status: stable LuizIlia love Apr 23, 2018 22:49
[2018-04-24] MEDS: Sucralfate 1gm tab ORAL SCH (05:53)
--- NOTE | 2018-04-24 07:13 | Anethesia Preoperative Eval ---
Anesthesia Pre-op PMH/ROS General Date of Evaluation: Apr 24, 2018 Time of Evaluation: 07:10 Anesthesiologist: elmo ASA Score: ASA 4 Mallampati Score Class I : Soft palate, uvula, fauces, pillars visible Class II: Soft palate, uvula, fauces visible Class III: Soft palate, base of uvula visible Class IV: Only hard plate visible Surgeon: jason Diagnosis: gerd Surgical Procedure: egd Allergies: Coded Allergies: RISPERIDONE (Verified Allergy, Intermediate, 04/27/16) Past Medical History Cardiovascular: Reports: HTN, other - pvd Pulmonary: Reports: COPD, other - acute respiratory failure, emphysema Gastrointestinal/Genitourinary: Reports: GERD, CRI Anesthesia Pre-op Phys. Exam Physician Exam Last Vital Signs Date Time Temp Pulse Resp B/P (MAP) Pulse Ox O2 Delivery O2 Flow Rate FiO2 04/23/18 21:13 Nasal Cannula 2.0 04/23/18 21:04 28 04/23/18 21:04 98 04/23/18 20:00 98.5 96 19 106/59 (75) Anesthesia Pre-op A/P Labs Hematology Test 04/23/18 11:10 White Blood Count 14.7 K/UL (4.8-10.8) H Red Blood Count 3.17 M/UL (4.70-6.10) L Hemoglobin 8.9 G/DL (14.2-18.0) L Hematocrit 28.5 % (42.0-52.0) L Mean Corpuscular Volume 90 FL (80-99) Mean Corpuscular Hemoglobin 28.1 PG (27.0-31.0) Mean Corpuscular Hemoglobin Concent 31.3 G/DL (32.0-36.0) L Red Cell Distribution Width 16.1 % (11.6-14.8) H Platelet Count 471 K/UL (150-450) H Mean Platelet Volume 6.0 FL (6.5-10.1) L Neutrophils (%) (Auto) 82.8 % (45.0-75.0) H Lymphocytes (%) (Auto) 6.7 % (20.0-45.0) L Monocytes (%) (Auto) 4.0 % (1.0-10.0) Eosinophils (%) (Auto) 6.1 % (0.0-3.0) H Basophils (%) (Auto) 0.4 % (0.0-2.0) Chemistry Test 04/23/18 11:10 Sodium Level 135 MMOL/L (136-145) L Potassium Level 4.7 MMOL/L (3.5-5.1) Chloride Level 101 MMOL/L (98-107) Carbon Dioxide Level 29 MMOL/L (21-32) Anion Gap 5 mmol/L (5-15) Blood Urea Nitrogen 23 mg/dL (7-18) H Creatinine 1.3 MG/DL (0.55-1.30) Estimat Glomerular Filtration Rate mL/min (>60) Glucose Level 97 MG/DL (74-106) Calcium Level 9.2 MG/DL (8.5-10.1) Risk Assessment & Plan Assessment: asa4 Plan: Paulina Leyva MD Apr 24, 2018 07:13
[2018-04-24] MEDS ORDERED: DiphenhydrAMINE 50mg/ml Inj IVP PRN (07:15)
[2018-04-24] MEDS ORDERED: Atropine Inj 1mg/10ml Syr IV PRN (07:15)
[2018-04-24] MEDS ORDERED: fentaNYL 100 mcg/2 mL IV PRN (07:15)
[2018-04-24] MEDS ORDERED: Midazolam 2mg/2ml Inj IVP PRN (07:15)
[2018-04-24 07:35] LABS: ANION GAP 4 mmol/L (5-15); BLOOD UREA NITROGEN 18 mg/dL (7-18); CALCIUM 9.1 MG/DL (8.5-10.1); CARBON DIOXIDE 29 MMOL/L (21-32); CHLORIDE 102 MMOL/L (98-107); CREATININE 1.2 MG/DL (0.55-1.30); POTASSIUM 5.1 MMOL/L (3.5-5.1); SODIUM 135 MMOL/L (136-145)
[2018-04-24 07:36] LABS: BASOPHILS % (AUTO) 0.3 % (0.0-2.0); EOSINOPHILS % (AUTO) 6.4 % (0.0-3.0); HEMATOCRIT 26.3 % (42.0-52.0); HEMOGLOBIN 8.7 G/DL (14.2-18.0); LYMPHOCYTES % (AUTO) 7.7 % (20.0-45.0); MEAN CORPUSCULAR VOLUME 89 FL (80-99); MONOCYTES % (AUTO) 4.3 % (1.0-10.0); NEUTROPHILS % (AUTO) 81.2 % (45.0-75.0); PLATELET COUNT 408 K/UL (150-450); RED BLOOD COUNT 2.96 M/UL (4.70-6.10); WHITE BLOOD COUNT 12.2 K/UL (4.8-10.8)
[2018-04-24 07:48] LABS: INR 1.1 (0.9-1.1)
[2018-04-24 08:00] VITALS: BP 111/56
[2018-04-24] MEDS: Docusate 100mg cap ORAL SCH (09:00)
[2018-04-24] MEDS: Heparin 5000 units/ml inj SUBQ SCH (09:00)
[2018-04-24] MEDS: Losartan 50mg tab ORAL SCH (09:00)
[2018-04-24] MEDS: Doxazosin 4mg tab ORAL SCH (09:00)
[2018-04-24] MEDS: Theophylline ER 100mg ORAL SCH (09:00)
--- NOTE | 2018-04-24 11:09 | Nephrology Progress Note ---
Assessment/Plan Assessment 1. Acute renal failure. 2. Chronic kidney 3. Hypokalemia. 4. Malnutrition. 5. Dehydration. Plan continue current med monitoring renal function nutritional support avoid NSAID Subjective Constitutional: Reports: no symptoms HEENT: Reports: no symptoms Genitourinary: Reports: no symptoms Neurologic/Psychiatric: Reports: no symptoms Subjective alert and awake no complaints no complaints Objective Objective Last 24 Hour Vital Signs Date Time Temp Pulse Resp B/P (MAP) Pulse Ox O2 Delivery O2 Flow Rate FiO2 04/24/18 09:00 Nasal Cannula 2.0 04/24/18 08:54 98 Nasal Cannula 2.0 28 04/24/18 08:54 Nasal Cannula 2.0 28 04/24/18 08:53 87 16 98 Nasal Cannula 2.0 28 04/24/18 08:53 87 16 98 Nasal Cannula 2.0 28 04/24/18 08:00 97.5 98 20 111/56 (74) 98 04/23/18 21:13 Nasal Cannula 2.0 04/23/18 21:04 Nasal Cannula 2.0 28 04/23/18 21:04 98 Nasal Cannula 2.0 28 04/23/18 20:00 98.5 96 19 106/59 (75) 100 04/23/18 19:28 98.1 04/23/18 15:55 98.1 94 18 93/64 (74) 99 04/23/18 12:00 97.9 18 95/48 (64) 99 Intake and Output 04/23/18 04/24/18 19:00 07:00 Intake Total 1220 ml Output Total 800 ml Balance 1220 ml -800 ml Intake Oral 1220 ml Output Urine Total 800 ml # Voids 5 Laboratory Tests 04/23/18 11:10: White Blood Count 14.7H, Red Blood Count 3.17L, Hemoglobin 8.9L, Hematocrit 28.5L, Mean Corpuscular Volume 90, Mean Corpuscular Hemoglobin 28.1, Mean Corpuscular Hemoglobin Concent 31.3L, Red Cell Distribution Width 16.1H, Platelet Count 471H, Mean Platelet Volume 6.0L, Neutrophils (%) (Auto) 82.8H, Lymphocytes (%) (Auto) 6.7L, Monocytes (%) (Auto) 4.0, Eosinophils (%) (Auto) 6.1H, Basophils (%) (Auto) 0.4, Sodium Level 135L, Potassium Level 4.7, Chloride Level 101, Carbon Dioxide Level 29, Anion Gap 5, Blood Urea Nitrogen 23H, Creatinine 1.3, Estimat Glomerular Filtration Rate , Glucose Level 97, Calcium Level 9.2 04/24/18 06:33: White Blood Count 12.2H, Red Blood Count 2.96L, Hemoglobin 8.7L, Hematocrit 26.3L, Mean Corpuscular Volume 89, Mean Corpuscular Hemoglobin 29.3, Mean Corpuscular Hemoglobin Concent 32.9, Red Cell Distribution Width 16.0H, Platelet Count 408, Mean Platelet Volume 5.5L, Neutrophils (%) (Auto) 81.2H, Lymphocytes (%) (Auto) 7.7L, Monocytes (%) (Auto) 4.3, Eosinophils (%) (Auto) 6.4H, Basophils (%) (Auto) 0.3, Sodium Level 135L, Potassium Level 5.1, Chloride Level 102, Carbon Dioxide Level 29, Anion Gap 4L, Blood Urea Nitrogen 18, Creatinine 1.2, Estimat Glomerular Filtration Rate , Glucose Level 87, Calcium Level 9.1, Prothrombin Time 11.2, Prothromb Time International Ratio 1.1 , Activated Partial Thromboplast Time 32 Height (Feet): 5 Height (Inches): 10.00 Weight (Pounds): 152 Objective HEAD AND NECK: No JVD. No LAD. No thyromegaly. Extraocular movement intact. Pupils are reactive to light and accommodation. LUNGS: Clear to auscultation. CARDIAC: Regular rate and rhythm. S1 and S2. No murmur. No rub. ABDOMEN: Soft, nontender, and nondistended. No organomegaly. EXTREMITIES: Trace edema. No clubbing. No cyanosis. Cranial nerves II through XII within normal limit. Upper and lower extremities are grossly intact. Cecelia Quintana MD Apr 24, 2018 11:09
--- NOTE | 2018-04-24 11:37 | Infectious Diseases Prog Note ---
Assessment/Plan Assessment/Plan PNA (+cough, fever, SOB), s/p Rx -04/20 CXR: Hyperinflated lungs of COPD. Interstitial thickening, improved in the right upper lobe compared to prior study. 2 cm left infrahilar opacity, consider CT for further evaluation. -CXR Right upper lobe and left suprahilar interstitial opacities. Uncertain as to whether these represent progressive chronic interstitial fibrotic changes versus acute infiltrates. Bilateral basilar scarring or atelectasis. 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 Will continue to follow along with you. Subjective Allergies: Coded Allergies: RISPERIDONE (Verified Allergy, Intermediate, 04/27/16) Subjective afebrile at RA feeling better leukocytosis improving now off abx Objective Vital Signs Last 24 Hour Vital Signs Date Time Temp Pulse Resp B/P (MAP) Pulse Ox O2 Delivery O2 Flow Rate FiO2 04/24/18 09:00 Nasal Cannula 2.0 04/24/18 08:54 98 Nasal Cannula 2.0 28 04/24/18 08:54 Nasal Cannula 2.0 28 04/24/18 08:53 87 16 98 Nasal Cannula 2.0 28 04/24/18 08:53 87 16 98 Nasal Cannula 2.0 28 04/24/18 08:00 97.5 98 20 111/56 (74) 98 04/23/18 21:13 Nasal Cannula 2.0 04/23/18 21:04 Nasal Cannula 2.0 28 04/23/18 21:04 98 Nasal Cannula 2.0 28 04/23/18 20:00 98.5 96 19 106/59 (75) 100 04/23/18 19:28 98.1 04/23/18 15:55 98.1 94 18 93/64 (74) 99 04/23/18 12:00 97.9 18 95/48 (64) 99 Height (Feet): 5 Height (Inches): 10.00 Weight (Pounds): 152 Objective General Appearance: cachetic Lines, tubes and drains: peripheral HEENT: normocephalic, atraumatic Neck: non-tender, normal alignment Respiratory/Chest: chest wall non-tender Cardiovascular/Chest: normal peripheral pulses, normal rate Abdomen: normal bowel sounds, soft Extremities: normal range of motion, non-tender 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 Laboratory Tests Test 04/24/18 06:33 White Blood Count 12.2 K/UL (4.8-10.8) H Red Blood Count 2.96 M/UL (4.70-6.10) L Hemoglobin 8.7 G/DL (14.2-18.0) L Hematocrit 26.3 % (42.0-52.0) L Mean Corpuscular Volume 89 FL (80-99) Mean Corpuscular Hemoglobin 29.3 PG (27.0-31.0) Mean Corpuscular Hemoglobin Concent 32.9 G/DL (32.0-36.0) Red Cell Distribution Width 16.0 % (11.6-14.8) H Platelet Count 408 K/UL (150-450) Mean Platelet Volume 5.5 FL (6.5-10.1) L Neutrophils (%) (Auto) 81.2 % (45.0-75.0) H Lymphocytes (%) (Auto) 7.7 % (20.0-45.0) L Monocytes (%) (Auto) 4.3 % (1.0-10.0) Eosinophils (%) (Auto) 6.4 % (0.0-3.0) H Basophils (%) (Auto) 0.3 % (0.0-2.0) Prothrombin Time 11.2 SEC (9.30-11.50) Prothromb Time International Ratio 1.1 (0.9-1.1) Activated Partial Thromboplast Time 32 SEC (23-33) Sodium Level 135 MMOL/L (136-145) L Potassium Level 5.1 MMOL/L (3.5-5.1) Chloride Level 102 MMOL/L (98-107) Carbon Dioxide Level 29 MMOL/L (21-32) Anion Gap 4 mmol/L (5-15) L Blood Urea Nitrogen 18 mg/dL (7-18) Creatinine 1.2 MG/DL (0.55-1.30) Estimat Glomerular Filtration Rate mL/min (>60) Glucose Level 87 MG/DL (74-106) Calcium Level 9.1 MG/DL (8.5-10.1) Current Medications Medications (Trade) Dose Ordered Sig/Amish Route PRN Reason Start Time Stop Time Status Last Admin Dose Admin Acetaminophen/ Codeine Phosphate (Tylenol #3) 1 tab Q6H PRN ORAL For Pain 04/21/18 17:45 04/28/18 17:44 04/23/18 18:53 Al Hydroxide/Mg Hydroxide (Mylanta) 15 ml Q1H PRN ORAL gi upset 04/24/18 07:15 04/24/18 17:00 Atropine Sulfate (Atropine) 0.5 mg Q5M PRN IV bpm less than 45 04/24/18 07:15 04/24/18 17:00 Bisacodyl (Dulcolax) 10 mg DAILYPRN PRN RECTAL Constipation 04/19/18 09:30 05/19/18 09:29 Calcium Carbonate (Tums) 500 mg Q3H PRN ORAL Abdominal cramps 04/20/18 16:30 05/20/18 16:29 04/21/18 21:52 Dextrose (Dextrose 50%) 25 ml Q30M PRN IV Hypoglycemia 04/17/18 18:15 05/16/18 06:14 Dextrose (Dextrose 50%) 50 ml Q30M PRN IV Hypoglycemia 04/17/18 18:15 05/16/18 06:14 Diphenhydramine HCl (Benadryl) 25 mg Q15M PRN IVP Itching 04/24/18 07:15 04/24/18 17:00 Docusate Sodium (Colace) 100 mg TWICE A DAY ORAL 04/17/18 22:00 05/17/18 21:59 04/23/18 17:26 Doxazosin Mesylate (Cardura) 4 mg DAILY ORAL 04/18/18 09:00 05/16/18 08:59 04/23/18 08:26 Fentanyl Citrate (Sublimaze 100 mcg/2 mL) 25 mcg Q10M PRN IV Moderate Pain (Pain Scale 4-6) 04/24/18 07:15 04/24/18 17:00 Heparin Sodium (Porcine) (Heparin 5000 units/ml) 5,000 units EVERY 12 HOURS SUBQ 04/17/18 21:00 05/16/18 08:59 04/23/18 08:29 Hydralazine HCl (Apresoline) 5 mg Q30M PRN IV SBP>160 OR___/DBP>90 OR___ 04/24/18 07:15 04/24/18 17:00 Lorazepam (Ativan) 0.5 mg DAILYPRN PRN ORAL For Anxiety 04/17/18 18:00 04/24/18 17:59 Losartan Potassium (Cozaar) 50 mg DAILY ORAL 04/18/18 09:00 05/16/18 08:59 04/22/18 08:16 Midazolam HCl (Versed 2mg/2ml vial) 1 mg Q15M PRN IVP For Anxiety 04/24/18 07:15 04/24/18 17:00 Nitroglycerin (Ntg) 0.4 mg Q5M X 3 DOSES PRN SL Prn Chest Pain 04/17/18 17:45 05/16/18 06:14 Ondansetron HCl (Zofran) 4 mg Q1H PRN IVP Nausea & Vomiting 04/24/18 07:15 04/24/18 17:00 Polyethylene Glycol (Miralax) 17 gm BEDTIME ORAL 04/21/18 21:00 05/21/18 20:59 04/23/18 21:01 Promethazine HCl/ Codeine (Phenergan with Codeine) 5 ml Q6H PRN ORAL cough 04/17/18 18:15 05/16/18 06:14 Risperidone (RisperDAL) 0.5 mg BID ORAL 04/22/18 18:00 05/22/18 17:59 Sodium Phosphate (Fleet's Sodium Phosl Enema) 133 ml BIDPRN PRN RECTAL Constipation 04/19/18 14:00 05/19/18 13:59 Sucralfate (Carafate) 1 gm BIAC ORAL 04/21/18 16:30 05/21/18 16:29 04/23/18 05:24 Temazepam (Restoril) 15 mg HSPRN PRN ORAL Insomnia 04/17/18 21:00 04/24/18 20:59 Theophylline (Nader-Dur) 100 mg EVERY 12 HOURS ORAL 04/17/18 21:00 05/16/18 08:59 04/23/18 21:01 Tiotropium [place] (Spiriva Inhaler) 1 puff DAILY INH 04/18/18 09:00 05/16/18 08:59 04/24/18 08:52 Paula Light M.D. Apr 24, 2018 11:37
--- NOTE | 2018-04-24 12:35 | GI Progress Note ---
Assessment/Plan Problems: (1) GERD (gastroesophageal reflux disease) ICD Codes: K21.9 - Gastro-esophageal reflux disease without esophagitis SNOMED: 376450793 (2) Anemia ICD Codes: D64.9 - Anemia, unspecified SNOMED: 440008287 (3) Acute respiratory failure ICD Codes: J96.00 - Acute respiratory failure, unspecified whether with hypoxia or hypercapnia SNOMED: 88193588 (4) Constipation ICD Codes: K59.00 - Constipation, unspecified SNOMED: 53170868 Status: unchanged Status Narrative Discussed with Dr. Sy Assessment/Plan EGD canceled today, no IV access Continue PPI, will add Carafate anemia work up OB stool r/o GI bleed monitor H&H, prn transfusions bowel regime ppi fu labs outpatient GI procedures The patient was seen and examined at bedside and all new and available data was reviewed in the patients chart. I agree with the above findings, impression and plan. (Patient seen earlier today. Signature stamp does not reflect patient encounter time.). - Gonzales Sy MD Subjective Subjective Continues to complain of epigastric gastric pain, states is contributed by his GERD states medication has no effect believes he has an ulcer Objective Last 24 Hour Vital Signs Date Time Temp Pulse Resp B/P (MAP) Pulse Ox O2 Delivery O2 Flow Rate FiO2 04/24/18 09:00 111/56 04/24/18 09:00 Nasal Cannula 2.0 04/24/18 08:54 98 Nasal Cannula 2.0 28 04/24/18 08:54 Nasal Cannula 2.0 28 04/24/18 08:53 87 16 98 Nasal Cannula 2.0 28 04/24/18 08:53 87 16 98 Nasal Cannula 2.0 28 04/24/18 08:00 97.5 98 20 111/56 (74) 98 04/23/18 21:13 Nasal Cannula 2.0 04/23/18 21:04 Nasal Cannula 2.0 28 04/23/18 21:04 98 Nasal Cannula 2.0 28 04/23/18 20:00 98.5 96 19 106/59 (75) 100 04/23/18 19:28 98.1 04/23/18 15:55 98.1 94 18 93/64 (74) 99 Intake and Output 04/23/18 04/24/18 19:00 07:00 Intake Total 1220 ml Output Total 800 ml Balance 1220 ml -800 ml Intake Oral 1220 ml Output Urine Total 800 ml # Voids 5 Laboratory Tests Test 04/24/18 06:33 White Blood Count 12.2 K/UL (4.8-10.8) H Red Blood Count 2.96 M/UL (4.70-6.10) L Hemoglobin 8.7 G/DL (14.2-18.0) L Hematocrit 26.3 % (42.0-52.0) L Mean Corpuscular Volume 89 FL (80-99) Mean Corpuscular Hemoglobin 29.3 PG (27.0-31.0) Mean Corpuscular Hemoglobin Concent 32.9 G/DL (32.0-36.0) Red Cell Distribution Width 16.0 % (11.6-14.8) H Platelet Count 408 K/UL (150-450) Mean Platelet Volume 5.5 FL (6.5-10.1) L Neutrophils (%) (Auto) 81.2 % (45.0-75.0) H Lymphocytes (%) (Auto) 7.7 % (20.0-45.0) L Monocytes (%) (Auto) 4.3 % (1.0-10.0) Eosinophils (%) (Auto) 6.4 % (0.0-3.0) H Basophils (%) (Auto) 0.3 % (0.0-2.0) Prothrombin Time 11.2 SEC (9.30-11.50) Prothromb Time International Ratio 1.1 (0.9-1.1) Activated Partial Thromboplast Time 32 SEC (23-33) Sodium Level 135 MMOL/L (136-145) L Potassium Level 5.1 MMOL/L (3.5-5.1) Chloride Level 102 MMOL/L (98-107) Carbon Dioxide Level 29 MMOL/L (21-32) Anion Gap 4 mmol/L (5-15) L Blood Urea Nitrogen 18 mg/dL (7-18) Creatinine 1.2 MG/DL (0.55-1.30) Estimat Glomerular Filtration Rate mL/min (>60) Glucose Level 87 MG/DL (74-106) Calcium Level 9.1 MG/DL (8.5-10.1) Height (Feet): 5 Height (Inches): 10.00 Weight (Pounds): 152 General Appearance: WD/WN, no apparent distress, alert Cardiovascular: normal rate Respiratory/Chest: normal breath sounds, no respiratory distress Abdominal Exam: normal bowel sounds, non tender, soft Extremities: normal range of motion, non-tender Gail Streeter NP Apr 24, 2018 12:35
--- NOTE | 2018-04-24 12:42 | Pulmonology Progress Note ---
Assessment/Plan Problems: (1) Acute respiratory failure (2) ATN (acute tubular necrosis) (3) CKD (chronic kidney disease) (4) Severe protein-calorie malnutrition (5) Hypertension (6) PVD (peripheral vascular disease) (7) Emphysema of lung (8) COPD exacerbation Assessment/Plan improving respiratory treatment off steroids check cultures dvt prophylaxis pt/ot med/surg ok to dc Subjective ROS Limited/Unobtainable: No Constitutional: Reports: no symptoms HEENT: Repors: no symptoms Respiratory: Reports: no symptoms Allergies: Coded Allergies: RISPERIDONE (Verified Allergy, Intermediate, 04/27/16) Objective Last 24 Hour Vital Signs Date Time Temp Pulse Resp B/P (MAP) Pulse Ox O2 Delivery O2 Flow Rate FiO2 04/24/18 09:00 111/56 04/24/18 09:00 Nasal Cannula 2.0 04/24/18 08:54 98 Nasal Cannula 2.0 28 04/24/18 08:54 Nasal Cannula 2.0 28 04/24/18 08:53 87 16 98 Nasal Cannula 2.0 28 04/24/18 08:53 87 16 98 Nasal Cannula 2.0 28 04/24/18 08:00 97.5 98 20 111/56 (74) 98 04/23/18 21:13 Nasal Cannula 2.0 04/23/18 21:04 Nasal Cannula 2.0 28 04/23/18 21:04 98 Nasal Cannula 2.0 28 04/23/18 20:00 98.5 96 19 106/59 (75) 100 04/23/18 19:28 98.1 04/23/18 15:55 98.1 94 18 93/64 (74) 99 Intake and Output 04/23/18 04/24/18 19:00 07:00 Intake Total 1220 ml Output Total 800 ml Balance 1220 ml -800 ml Intake Oral 1220 ml Output Urine Total 800 ml # Voids 5 Objective General Appearance: cachectic Lines, tubes and drains: peripheral HEENT: normocephalic Neck: non-tender Respiratory/Chest: chest wall non-tender, lungs clear Cardiovascular/Chest: normal peripheral pulses Abdomen: normal bowel sounds Genitourinary/Rectal: normal genital exam Extremities: normal range of motion, non-pitting Laboratory Tests 04/24/18 06:33: White Blood Count 12.2H, Red Blood Count 2.96L, Hemoglobin 8.7L, Hematocrit 26.3L, Mean Corpuscular Volume 89, Mean Corpuscular Hemoglobin 29.3, Mean Corpuscular Hemoglobin Concent 32.9, Red Cell Distribution Width 16.0H, Platelet Count 408, Mean Platelet Volume 5.5L, Neutrophils (%) (Auto) 81.2H, Lymphocytes (%) (Auto) 7.7L, Monocytes (%) (Auto) 4.3, Eosinophils (%) (Auto) 6.4H, Basophils (%) (Auto) 0.3, Prothrombin Time 11.2, Prothromb Time International Ratio 1.1, Activated Partial Thromboplast Time 32, Sodium Level 135L, Potassium Level 5.1, Chloride Level 102, Carbon Dioxide Level 29, Anion Gap 4L, Blood Urea Nitrogen 18, Creatinine 1.2, Estimat Glomerular Filtration Rate , Glucose Level 87, Calcium Level 9.1 Current Medications Medications (Trade) Dose Ordered Sig/Amish Route PRN Reason Start Time Stop Time Status Last Admin Dose Admin Acetaminophen/ Codeine Phosphate (Tylenol #3) 1 tab Q6H PRN ORAL For Pain 04/21/18 17:45 04/28/18 17:44 04/23/18 18:53 Bisacodyl (Dulcolax) 10 mg DAILYPRN PRN RECTAL Constipation 04/19/18 09:30 05/19/18 09:29 Calcium Carbonate (Tums) 500 mg Q3H PRN ORAL Abdominal cramps 04/20/18 16:30 05/20/18 16:29 04/21/18 21:52 Dextrose (Dextrose 50%) 25 ml Q30M PRN IV Hypoglycemia 04/17/18 18:15 05/16/18 06:14 Dextrose (Dextrose 50%) 50 ml Q30M PRN IV Hypoglycemia 04/17/18 18:15 05/16/18 06:14 Docusate Sodium (Colace) 100 mg TWICE A DAY ORAL 04/17/18 22:00 05/17/18 21:59 04/23/18 17:26 Doxazosin Mesylate (Cardura) 4 mg DAILY ORAL 04/18/18 09:00 05/16/18 08:59 04/23/18 08:26 Heparin Sodium (Porcine) (Heparin 5000 units/ml) 5,000 units EVERY 12 HOURS SUBQ 04/17/18 21:00 05/16/18 08:59 04/23/18 08:29 Lorazepam (Ativan) 0.5 mg DAILYPRN PRN ORAL For Anxiety 04/17/18 18:00 04/24/18 17:59 Losartan Potassium (Cozaar) 50 mg DAILY ORAL 04/18/18 09:00 05/16/18 08:59 04/22/18 08:16 Nitroglycerin (Ntg) 0.4 mg Q5M X 3 DOSES PRN SL Prn Chest Pain 04/17/18 17:45 05/16/18 06:14 Polyethylene Glycol (Miralax) 17 gm BEDTIME ORAL 04/21/18 21:00 05/21/18 20:59 04/23/18 21:01 Promethazine HCl/ Codeine (Phenergan with Codeine) 5 ml Q6H PRN ORAL cough 04/17/18 18:15 05/16/18 06:14 Risperidone (RisperDAL) 0.5 mg BID ORAL 04/22/18 18:00 05/22/18 17:59 Sodium Phosphate (Fleet's Sodium Phosl Enema) 133 ml BIDPRN PRN RECTAL Constipation 04/19/18 14:00 05/19/18 13:59 Sucralfate (Carafate) 1 gm BIAC ORAL 04/21/18 16:30 05/21/18 16:29 04/23/18 05:24 Temazepam (Restoril) 15 mg HSPRN PRN ORAL Insomnia 04/17/18 21:00 04/24/18 20:59 Theophylline (Nader-Dur) 100 mg EVERY 12 HOURS ORAL 04/17/18 21:00 05/16/18 08:59 04/23/18 21:01 Tiotropium [place] (Spiriva Inhaler) 1 puff DAILY INH 04/18/18 09:00 05/16/18 08:59 04/24/18 08:52 Alejandrina Cee MD Apr 24, 2018 12:42
--- NOTE | 2018-04-24 14:26 | General Progress Note ---
Assessment/Plan Problem List: (1) Pneumonia ICD Codes: J18.9 - Pneumonia, unspecified organism SNOMED: 660896054 (2) CKD (chronic kidney disease) ICD Codes: N18.9 - Chronic kidney disease, unspecified SNOMED: 141849288 (3) ATN (acute tubular necrosis) ICD Codes: N17.0 - Acute kidney failure with tubular necrosis SNOMED: 46041032 (4) Hypertension ICD Codes: I10 - Essential (primary) hypertension SNOMED: 83113080 Status: stable, progressing Assessment/Plan o2 pulm tx abx ot pt diet cbc bmp am dc if clear Subjective Constitutional: Reports: weakness Allergies: Coded Allergies: RISPERIDONE (Verified Allergy, Intermediate, 04/27/16) All Systems: reviewed and negative except above Subjective o2nc wants to go back to snf Objective Last 24 Hour Vital Signs Date Time Temp Pulse Resp B/P (MAP) Pulse Ox O2 Delivery O2 Flow Rate FiO2 04/24/18 09:00 111/56 04/24/18 09:00 Nasal Cannula 2.0 04/24/18 08:54 98 Nasal Cannula 2.0 28 04/24/18 08:54 Nasal Cannula 2.0 28 04/24/18 08:53 87 16 98 Nasal Cannula 2.0 28 04/24/18 08:53 87 16 98 Nasal Cannula 2.0 28 04/24/18 08:00 97.5 98 20 111/56 (74) 98 04/23/18 21:13 Nasal Cannula 2.0 04/23/18 21:04 Nasal Cannula 2.0 28 04/23/18 21:04 98 Nasal Cannula 2.0 28 04/23/18 20:00 98.5 96 19 106/59 (75) 100 04/23/18 19:28 98.1 04/23/18 15:55 98.1 94 18 93/64 (74) 99 Intake and Output 04/23/18 04/24/18 19:00 07:00 Intake Total 1220 ml Output Total 800 ml Balance 1220 ml -800 ml Intake Oral 1220 ml Output Urine Total 800 ml # Voids 5 Laboratory Tests 04/24/18 06:33: White Blood Count 12.2H, Red Blood Count 2.96L, Hemoglobin 8.7L, Hematocrit 26.3L, Mean Corpuscular Volume 89, Mean Corpuscular Hemoglobin 29.3, Mean Corpuscular Hemoglobin Concent 32.9, Red Cell Distribution Width 16.0H, Platelet Count 408, Mean Platelet Volume 5.5L, Neutrophils (%) (Auto) 81.2H, Lymphocytes (%) (Auto) 7.7L, Monocytes (%) (Auto) 4.3, Eosinophils (%) (Auto) 6.4H, Basophils (%) (Auto) 0.3, Prothrombin Time 11.2, Prothromb Time International Ratio 1.1, Activated Partial Thromboplast Time 32, Sodium Level 135L, Potassium Level 5.1, Chloride Level 102, Carbon Dioxide Level 29, Anion Gap 4L, Blood Urea Nitrogen 18, Creatinine 1.2, Estimat Glomerular Filtration Rate , Glucose Level 87, Calcium Level 9.1 Height (Feet): 5 Height (Inches): 10.00 Weight (Pounds): 152 General Appearance: lethargic EENT: normal ENT inspection Neck: normal alignment Cardiovascular: normal peripheral pulses, normal rate, regular rhythm Respiratory/Chest: chest wall non-tender, lungs clear, normal breath sounds Abdomen: normal bowel sounds, non tender, soft Extremities: normal inspection Edema: no edema noted Arm (L), no edema noted Arm (R), no edema noted Leg (L), no edema noted Leg (R), no edema noted Pedal (L), no edema noted Pedal (R), no edema noted Generalized Neurologic: responsive, motor weakness Skin: normal pigmentation, warm/dry Leland Joseph DO Apr 24, 2018 14:26
[2018-04-24 16:00] VITALS: BP 128/68
--- NOTE | 2018-04-24 20:30 | Progress Note ---
DATE: 04/24/2018 SUBJECTIVE: The patient is an 83-year-old male patient with COPD. He is still confused and disorganized. His mood is labile. He has got no logical plan for his own self-care. activity. That is why, he does require inpatient treatment at this time. He has , but he has increased mood lability and agitation as well, worsened by the stress of his medical illness and that is why, his attending has requested daily psychiatric consultation. In addition to that he has chronic obstructive pulmonary disease as well. MENTAL STATUS EXAMINATION: This is an 83-year-old male. Appearance is disheveled. Attitude, irritable and agitated. Affect, guarded and restricted. Intellect poor. Mood, depressed and anxious. Motor activity, psychomotor agitation. Attention span is poor. Orientation x2. Speech is pressured. Thought process is disorganized and logical. Thought content, auditory hallucinations and paranoid delusions. Insight and judgment is poor. DIAGNOSIS: Paranoid schizophrenia with acute exacerbation. PLAN: Continue treatment with medication to stabilize his mood. Provided him with 20 minutes of cognitive behavioral therapy to help him identify his automatic negative thoughts and help convert those negative thoughts to more positive thoughts to reduce depression, anxiety, and suicidality and also to help him have a more adaptive behavior pattern. Chart reviewed. Discussed with staff. Seen and assessed in his room. A 20 minutes of cognitive behavioral therapy provided. Darrick Robert M.D. DR: NEFTALY JOB#: [id number] CC:
--- NOTE | 2018-04-25 14:08 | Discharge Summary ---
Discharge Summary Discharge Summary _ DATE OF ADMISSION: 04/15/2018 DATE OF DISCHARGE: 04/24/2018 DISCHARGED BY: Dr. Leland Joseph CONSULTANTS: Dr. Domingo Rossi BRIEF HOSPITAL COURSE: Patient is an 83-year-old male, from [facility], presented with increased shortness of breath, weakness and lethargy. Per report patient had increased productive cough. While at the ED, he refused most of interventions. Chest x-ray showed emphysematous changes and bibasilar infiltrate. He was admitted for COPD exacerbation. He was given nebulizer treatments. He was started on IV steroids. He was followed by infectious disease specialist. Augmentin was changed to Levaquin and linezolid was added. Patient had dyspnea, most likely due to acute exacerbation of COPD. He was continued on losartan for high blood pressure. Creatinine was elevated 2.4. Potassium was 3.3. And had acute renal failure due to unstable hemodynamics. Was consulted for evaluation of abdominal pain. He was given proton pump inhibitors. Carafate was added. He was given bowel regimen. Psychiatric evaluation was done. Patient has major depression with psychotic features. He came in with stage III ulcer on the sacral region. Surgery was called to evaluate and assist with care. He was recommended care. He was placed on support surface mattress, with frequent repositioning and offloading. Sputum culture showed growth of MRSA. Influenza screen was negative. He completed Levaquin and linezolid treatment. Taper of steroids. Renal function improved. Saturating well and was breathing better. He was discharged back to snf. FINAL DIAGNOSES: Acute COPD exacerbation Pneumonia Protein calorie malnutrition Chronic kidney disease Acute renal failure due to unstable hemodynamics Peripheral vascular disease Hypertension Emphysema Anemia GERD Constipation BPH Paranoid schizophrenia with acute exacerbation Stage III sacral decubitus ulcer, present on admission DISPOSITION: Patient was discharged to a SNF. DISCHARGE MEDICATIONS: Refer to Discharge Medication List. I have been assigned to dictate discharge summary on this account, and I was not involved in the patient's management. Rhianna Scott NP Apr 25, 2018 14:08
== END 2018-04-24 16:45 | DRG 193 ==
LOC: EDBD 21:02 → EMR 21:22 → 2E 23:23 → EDBEDREQ 04-16 00:09 → 4E 04-17 17:45
DX: J18.9 Pneumonia, unspecified organism (principal); L89.153 Pressure ulcer of sacral region, stage 3; E43 Unspecified severe protein-calorie malnutrition; N17.0 Acute kidney failure with tubular necrosis; J96.00 Acute respiratory failure, unspecified whether with hypoxia or hypercapnia; J44.1 Chronic obstructive pulmonary disease with (acute) exacerbation; J44.0 Chronic obstructive pulmonary disease with (acute) lower respiratory infection; F32.3 Major depressive disorder, single episode, severe with psychotic features; Z66 Do not resuscitate; R62.7 Adult failure to thrive; D64.9 Anemia, unspecified; I12.9 Hypertensive chronic kidney disease with stage 1 through stage 4 chronic kidney disease, or unspecified chronic kidney disease; E11.22 Type 2 diabetes mellitus with diabetic chronic kidney disease; N18.9 Chronic kidney disease, unspecified; E11.21 Type 2 diabetes mellitus with diabetic nephropathy; I73.9 Peripheral vascular disease, unspecified; N40.0 Benign prostatic hyperplasia without lower urinary tract symptoms; E87.6 Hypokalemia; E86.0 Dehydration; F25.0 Schizoaffective disorder, bipolar type; K59.00 Constipation, unspecified
CPT/HCPCS: 36415; 71045; 76770; 80048; 80053; 81003; 82043; 82044; 82550; 82570; 83880; 84133; 84300; 84484; 84550; 85007; 85025; 85610; 85730; 86710; 87040; 87070; 87181; 87205; 89050; 94640; 94664; 94760; 97803; 99285; J7620; J8499

== ENCOUNTER 2018-04-25 19:11 | Inpatient (IN) | payer MEDICARE, OTHER ==
[~2018-04-25] VITALS: Ht 170.2 cm; Wt 73.0 kg
[~2018-04-25 19:11] MED LIST changes: +ADVAIR 250/501 PUFFS INH; +ATIVAN0.5 MG ORAL; +DUONEB 0.5-3(2.53 ML HHN; +FERROUS SULFAT325 MG ORAL; +FLONASE ALLERG9.9 ML NS; +LANTUS SOL100 UNIT/1 SUBQ; +MECLIZINE HCL25 MG ORAL; +MULTIVITAMINS1 EAC2 ORAL; +PREVACID30 MG ORAL; +PROTONIX40 MG ORAL; +SPIRIVA18 MCG INH; +TUMS200 M1 PO; +ZYRTEC10 MG ORAL
[2018-04-25] MEDS ORDERED: Sodium Chloride 500ML 500 ML IV ONE (19:18)
[2018-04-25] MEDS ORDERED: Morphine Sulfate 2mg/ml Inj IVP ONE (19:30)
[2018-04-25] MEDS ORDERED: Isovue-300 100ml vial INJ PRN (19:30)
[2018-04-25 20:04] LABS: HEMATOCRIT 32.4 % (42.0-52.0); HEMOGLOBIN 10.6 G/DL (14.2-18.0); MEAN CORPUSCULAR VOLUME 89 FL (80-99); PLATELET COUNT 401 K/UL (150-450); RED BLOOD COUNT 3.62 M/UL (4.70-6.10); RED CELL DISTRIBUTION WIDTH 16.2 % (11.6-14.8); WHITE BLOOD COUNT 20.8 K/UL (4.8-10.8)
[2018-04-25 20:26] LABS: ANION GAP 10 mmol/L (5-15); BLOOD UREA NITROGEN 19 mg/dL (7-18); CALCIUM 9.7 MG/DL (8.5-10.1); CARBON DIOXIDE 26 MMOL/L (21-32); CHLORIDE 99 MMOL/L (98-107); CREATININE 1.1 MG/DL (0.55-1.30); POTASSIUM 4.4 MMOL/L (3.5-5.1); SODIUM 135 MMOL/L (136-145)
[2018-04-25 20:29] LABS: APPEARANCE,URINE CLEAR; BILIRUBIN, URINE NEGATIVE (NEGATIVE); COLOR,URINE PALE YELLOW; GLUCOSE, URINE (UA) 1+ (NEGATIVE); KETONES,URINE 3+ (NEGATIVE); LEUKOCYTE ESTERASE ,URINE NEGATIVE (NEGATIVE); NITRITE,URINE NEGATIVE (NEGATIVE); PH,URINE 8 (4.5-8.0); PROTEIN,URINE 2+ (NEGATIVE); UROBILINOGEN,URINE NORMAL MG/DL (0.0-1.0)
[2018-04-25 20:31] LABS: ALANINE AMINOTRANSFERASE 16 U/L (12-78); ALBUMIN 2.4 G/DL (3.4-5.0); ALBUMIN/GLOBULIN RATIO 0.5 (1.0-2.7); ALKALINE PHOSPHATASE 93 U/L (46-116); ASPARTATE AMINO TRANSFERASE 16 U/L (15-37); BILIRUBIN,TOTAL 0.5 MG/DL (0.2-1.0)
[2018-04-25 20:32] VITALS: BP 120/65
[2018-04-25] MEDS ORDERED: Piperacillin/Tazobactam 3.375 GM in D5W 110 ML IVPB ONE (21:30)
--- NOTE | 2018-04-25 21:54 | Emergency Room Report ---
History of Present Illness General Chief Complaint: Abdominal Pain Source: Patient Present Illness HPI 83-year-old male presents ED for evaluation. Coming from nursing home facility. Multiple episodes of vomiting with coffee-ground emesis. Also complaining of abdominal pain. Pain is burning, 7 out of 10, nonradiating. h/ o GERD. Denies fevers or chills. Denies chest pain or shortness of breath. No other aggravating relieving factors. Denies any other associated symptoms Allergies: Coded Allergies: RISPERIDONE (Verified Allergy, Intermediate, 04/27/16) Patient History Past Medical History: DM, HTN, GERD Social History: Denies: smoking, alcohol use, drug use Immunizations: UTD Reviewed Nursing Documentation: PMH: Agreed; PSxH: Agreed Nursing Documentation-PMH Past Medical History Deferred: Patient Unconscious Hx Cardiac Problems: No Hx Hypertension: Yes Hx COPD: Yes - pneumonia. Hx Diabetes: Yes - DIAB Hx Cancer: No Hx Gastrointestinal Problems: Yes - GERD Hx Neurological Problems: Yes - DEP Review of Systems All Other Systems: negative except mentioned in HPI Physical Exam Vital Signs Date Time Temp Pulse Resp B/P (MAP) Pulse Ox O2 Delivery O2 Flow Rate FiO2 04/25/18 19:03 98.1 110 18 120/65 99 Nasal Cannula 2.0 Sp02 EP Interpretation: reviewed, normal General Appearance: no apparent distress, alert, GCS 15, non-toxic Head: normocephalic, atraumatic Eyes: bilateral eye normal inspection, bilateral eye PERRL ENT: hearing grossly normal, normal pharynx, no angioedema, normal voice Neck: full range of motion, supple/symm/no masses Respiratory: chest non-tender, lungs clear, normal breath sounds, speaking full sentences Cardiovascular #1: regular rate, rhythm, no edema Cardiovascular #2: 2+ carotid (R), 2+ carotid (L), 2+ radial (R), 2+ radial (L) , 2+ dorsalis pedis (R), 2+ dorsalis pedis (L) Gastrointestinal: normal bowel sounds, soft, non-distended, no guarding, no rebound, tenderness Rectal: deferred Genitourinary: normal inspection, no CVA tenderness Musculoskeletal: back normal, gait/station normal, normal range of motion, non- tender Neurologic: alert, oriented x3, responsive, motor strength/tone normal, sensory intact, speech normal Psychiatric: judgement/insight normal, memory normal, mood/affect normal, no suicidal/homicidal ideation Reflexes: 3+ bicep (R), 3+ bicep (L), 3+ tricep (R), 3+ tricep (L), 3+ knee (R) , 3+ knee (L) Skin: normal color, no rash, warm/dry, well hydrated Lymphatic: no adenopathy Medical Decision Making Diagnostic Impression: Primary Impression: Abdominal pain Qualified Codes: R10.13 - Epigastric pain Additional Impressions: Intractable vomiting Qualified Codes: R11.2 - Nausea with vomiting, unspecified Leukocytosis Qualified Codes: D72.829 - Elevated white blood cell count, unspecified Fecal impaction ER Course Hospital Course 83-year-old male presents to ED with abdominal pain, vomiting Differential diagnoses include: BPH, cystitis, pyelonephritis, kidney stone Clinical course Patient placed on stretcher. 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 After initial history and physical I ordered labs, IV fluids, UA, pain medication and CT scan Labs - noted leukocytosis, Hb/Hct stable, electrolytes ok, UA negative CXR - hyperinflated lungs CT abdomen and pelvis - fecal impaction, no signs of obstruction Given antibiotics. Given IV fluids. patient is DNR, selective treatment Case discussed with Dr. Joseph and he agreed to accept the patient to his service for further care and support I feel this is a highly complex case requiring extensive working including EKG/ Rhythm strip, Xray/CT/US, Blood/urine lab work, repeat exams while in ED, and administration of strong opiates/narcotics for pain control, admission to hospital or close patient follow up. Diagnosis - abdominal pain, intractable vomiting, leukocytosis, fecal impaction Patient admitted to floor in serious condition Labs Test 04/25/18 19:50 04/25/18 20:20 White Blood Count 20.8 K/UL (4.8-10.8) Red Blood Count 3.62 M/UL (4.70-6.10) Hemoglobin 10.6 G/DL (14.2-18.0) Hematocrit 32.4 % (42.0-52.0) Mean Corpuscular Volume 89 FL (80-99) Mean Corpuscular Hemoglobin 29.1 PG (27.0-31.0) Mean Corpuscular Hemoglobin Concent 32.6 G/DL (32.0-36.0) Red Cell Distribution Width 16.2 % (11.6-14.8) Platelet Count 401 K/UL (150-450) Mean Platelet Volume 5.7 FL (6.5-10.1) Neutrophils (%) (Auto) % (45.0-75.0) Lymphocytes (%) (Auto) % (20.0-45.0) Monocytes (%) (Auto) % (1.0-10.0) Eosinophils (%) (Auto) % (0.0-3.0) Basophils (%) (Auto) % (0.0-2.0) Differential Total Cells Counted 100 Neutrophils % (Manual) 93 % (45-75) Lymphocytes % (Manual) 1 % (20-45) Monocytes % (Manual) 4 % (1-10) Eosinophils % (Manual) 1 % (0-3) Basophils % (Manual) 0 % (0-2) Band Neutrophils 1 % (0-8) Platelet Estimate Adequate Platelet Morphology Normal Polychromasia 1+ Anisocytosis 1+ Sodium Level 135 MMOL/L (136-145) Potassium Level 4.4 MMOL/L (3.5-5.1) Chloride Level 99 MMOL/L (98-107) Carbon Dioxide Level 26 MMOL/L (21-32) Anion Gap 10 mmol/L (5-15) Blood Urea Nitrogen 19 mg/dL (7-18) Creatinine 1.1 MG/DL (0.55-1.30) Estimat Glomerular Filtration Rate mL/min (>60) Glucose Level 192 MG/DL (74-106) Calcium Level 9.7 MG/DL (8.5-10.1) Total Bilirubin 0.5 MG/DL (0.2-1.0) Aspartate Amino Transf (AST/SGOT) 16 U/L (15-37) Alanine Aminotransferase (ALT/SGPT) 16 U/L (12-78) Alkaline Phosphatase 93 U/L (46-116) Total Protein 7.1 G/DL (6.4-8.2) Albumin 2.4 G/DL (3.4-5.0) Globulin 4.7 g/dL Albumin/Globulin Ratio 0.5 (1.0-2.7) Lipase 58 U/L (73-393) Urine Color Pale yellow Urine Appearance Clear Urine pH 8 (4.5-8.0) Urine Specific [place] 1.010 (1.005-1.035) Urine Protein 2+ (NEGATIVE) Urine Glucose (UA) 1+ (NEGATIVE) Urine Ketones 3+ (NEGATIVE) Urine Blood Negative (NEGATIVE) Urine Nitrite Negative (NEGATIVE) Urine Bilirubin Negative (NEGATIVE) Urine Urobilinogen Normal MG/DL (0.0-1.0) Urine Leukocyte Esterase Negative (NEGATIVE) Urine RBC 0-2 /HPF (0 - 0) Urine WBC 0-2 /HPF (0 - 0) Urine Squamous Epithelial Cells Few /LPF (NONE/OCC) Urine Bacteria None /HPF (NONE) Chest X-Ray Diagnostic Results Chest X-Ray Diagnostic Results : Chest X-Ray Ordered: Yes # of Views/Limited/Complete: 1 View Indication: Shortness of Breath EP Interpretation: Yes Interpretation: no consolidation, no effusion, no pneumothorax, no acute cardiopulmonary disease, other - hyperinflated lungs Impression: Other - COPD Electronically Signed by: Electronically signed by Ken Pate MD CT/MRI/US Diagnostic Results CT/MRI/US Diagnostic Results : Imaging Test Ordered: CT A/P Impression : Marked distention of the cecum to 9 cm with the distal ascending colon not is dilated with moderate retained stool throughout the remainder the colon. Findings are suspicious for the possibility of cecal bascule. Semisolid stool formation in the distal small bowel consistent with stasis Last Vital Signs Date Time Temp Pulse Resp B/P (MAP) Pulse Ox O2 Delivery O2 Flow Rate FiO2 04/25/18 20:32 98.1 110 18 120/65 99 Nasal Cannula 2.0 Status: improved Disposition: ADMITTED INPATIENT Condition: Serious Referrals: Leland Joseph DO (PCP) Ken Pate MD Apr 25, 2018 21:54
[2018-04-25] MEDS ORDERED: Sodium Chloride 500ML 500 ML IVLG SCH (21:55)
[2018-04-25] MEDS ORDERED: Morphine Sulfate 2mg/ml Inj IVP PRN (22:00)
[2018-04-25 23:00] VITALS: BP 146/80
[2018-04-26] MEDS ORDERED: Milk of Magnesia 30ml Ud ORAL PRN (02:30)
[2018-04-26] MEDS ORDERED: LORazepam 1mg tab ORAL PRN (02:30)
[2018-04-26] MEDS ORDERED: Tums 500mg ORAL PRN (02:30)
[2018-04-26] MEDS ORDERED: Meclizine 25mg tab ORAL PRN (02:30)
[2018-04-26] MEDS ORDERED: Fleet's Enema 133ml RECTAL PRN (02:30)
[2018-04-26] MEDS: D5 1/2NS 1,000 ML IV SCH ×2 (02:45→17:43)
[2018-04-26 04:00] VITALS: BP 120/74
[2018-04-26 07:25] LABS: ANION GAP 12 mmol/L (5-15); BLOOD UREA NITROGEN 17 mg/dL (7-18); CALCIUM 9.7 MG/DL (8.5-10.1); CARBON DIOXIDE 24 MMOL/L (21-32); CHLORIDE 98 MMOL/L (98-107); CREATININE 1.1 MG/DL (0.55-1.30); POTASSIUM 4.3 MMOL/L (3.5-5.1); SODIUM 134 MMOL/L (136-145)
[2018-04-26 07:31] LABS: HEMOGLOBIN 9.7 G/DL (14.2-18.0); MEAN CORPUSCULAR VOLUME 90 FL (80-99); PLATELET COUNT 369 K/UL (150-450); RED BLOOD COUNT 3.35 M/UL (4.70-6.10); RED CELL DISTRIBUTION WIDTH 16.2 % (11.6-14.8); WHITE BLOOD COUNT 21.6 K/UL (4.8-10.8)
[2018-04-26 08:00] VITALS: BP 137/80
[2018-04-26] MEDS: Morphine Sulfate 2mg/ml Inj IVP PRN ×2 (08:00→16:17)
[2018-04-26] MEDS ORDERED: Isovue-300 100ml vial INJ PRN (08:15)
[2018-04-26] MEDS ORDERED: Fleet's Mineral Oil Enema RECTAL SCH (08:15)
[2018-04-26] MEDS: Vitamin B-12 500mcg tab ORAL SCH (09:00)
[2018-04-26] MEDS: Losartan 50mg tab ORAL SCH (09:00)
[2018-04-26] MEDS: Vitamin D 400 INTLU TAB ORAL SCH (09:00)
[2018-04-26] MEDS ORDERED: Docusate 100mg cap ORAL SCH (09:00)
[2018-04-26] MEDS: Docusate 100mg cap ORAL SCH ×2 (09:00→18:00)
[2018-04-26] MEDS: Heparin 5000 units/ml inj SUBQ SCH ×2 (09:00→20:54)
[2018-04-26] MEDS: Lactulose 10gm/15ml UDC ORAL SCH ×4 (09:00→18:08)
[2018-04-26] MEDS: Aspirin Baby 81mg ORAL SCH (09:00)
--- NOTE | 2018-04-26 10:15 | History and Physical Report ---
DATE OF ADMISSION: 04/25/2018 TIME: 8 a.m. CONSULTANTS: 1. Gonzales Sy M.D. 2. Solomon Candelaria M.D. 3. Cecelia Quintana M.D. 4. Ralph Loomis M.D. 5. Darrick Robert M.D. CHIEF COMPLAINT: Abdominal pain, vomiting, tachycardia, anxiety, and fecal impaction. BRIEF HISTORY: This 83-year-old male from [facility], presents to [facility] yesterday with abdominal pain and vomiting, was tachycardic, was diagnosed with fecal impaction and leukocytosis, and admitted to medical floor for further treatment. Currently slightly anxious in bed, oriented x2, in no acute distress. REVIEW OF SYSTEMS: No chest pain. Slight short of breath, slight nausea, and vomiting. No diarrhea. PAST MEDICAL HISTORY: Includes emphysema, PVD, hypertension, malnutrition, CKD, and GERD. PAST SURGICAL HISTORY: Unknown. ALLERGIES: Risperidone. SOCIAL HISTORY: No smoking. No alcohol. No intravenous drug abuse. FAMILY HISTORY: Noncontributory. PHYSICAL EXAMINATION: GENERAL: Slightly anxious in bed, oriented x2, in no acute distress. VITAL SIGNS: Temperature is 98 degrees, pulse 117, respirations 19, and blood pressure 120/74. CARDIOVASCULAR: No murmur. LUNGS: Poor air exchange. ABDOMEN: Bowel sounds distant. Soft. No guarding. No rigidity. No rebound. EXTREMITIES: No cyanosis, clubbing, or edema. NEUROLOGIC: The patient moves all extremities, slightly weak. LABORATORY AND DIAGNOSTIC DATA: White count 21, hemoglobin and hematocrit 9.0 and 30, and platelets 369,000. BMP shows sodium 134 and glucose 192. Otherwise, BMP is normal. Urinalysis show 3+ ketones. MEDICATIONS: Include Lipitor, Cardura, Senokot, MiraLAX, heparin, aspirin, Zyrtec, , Cozaar, Colace, Cephulac, and Protonix. ASSESSMENT: 1. Abdominal pain. 2. Vomiting. 3. Gastroesophageal reflux disease. 4. Tachycardia. 5. Leukocytosis. 6. Anemia. 7. Fecal impaction. 8. Emphysema. 9. Diabetes. 10. Hypertension. 11. Peripheral vascular disease. 12. Malnutrition. 13. Chronic kidney disease. PLAN: 1. O2 and pulmonary treatment. 2. PRN antibiotics per Infectious Disease. 3. Blood pressure and blood sugar control. 4. Pain control. 5. Dietary followup. 6. Resume home medications. 7. CBC and BMP in the morning. Leland Joseph D.O. DR: JERI JOB#: [id number] CC:
--- NOTE | 2018-04-26 10:19 | Consultation ---
History of Present Illness General Date patient seen: Apr 26, 2018 Chief Complaint: Abdominal Pain Present Illness HPI 83 y/o M with hx o f GERD, DM2, HTN, COPD, anemia, BPH, PVD, cachetic, SNF resident presents to ED on 04/25 with multiple episodes of coffee-ground emesis , abd pain (burining, 11/12, non radiating). Denies f/c, CP, SOB. OF note, patient admitted here from 04/15-04/24 for bibasilar infiltrates/PNA and treated with 7 days of Levaquin and Linezolid. Allergies: Coded Allergies: RISPERIDONE (Verified Allergy, Intermediate, 04/27/16) Medication History Scheduled Aspirin* (Aspirin*), 81 MG ORAL DAILY, (Reported) Atorvastatin Calcium* (Lipitor*), 80 MG ORAL BEDTIME, (Reported) Calcium Carbonate (Tums), 200 MG PO Q4HR, (Reported) Cetirizine Hcl* (Zyrtec*), 10 MG ORAL DAILY, (Reported) Cholecalciferol (Vitamin D3) (Vitamin D-400*), 400 UNITS ORAL DAILY, (Reported) Cyanocobalamin (Vitamin B-12)* (Vitamin B-12*), 500 MCG ORAL DAILY, (Reported) Docusate Sodium* (Docusate Sodium*), 100 MG ORAL TWICE A DAY, (Reported) Doxazosin Mesylate* (Cardura*), 6 MG ORAL BEDTIME, (Reported) Doxazosin Mesylate* (Cardura*), 4 MG ORAL HS, (Reported) Ferrous Sulfate* (Ferrous Sulfate*), 325 MG ORAL THREE TIMES A DAY, (Reported) Fluticasone Propionate (Flonase Allergy Relief), 9.9 ML NS BID, (Reported) Fluticasone/Salmeterol (Advair 250-50 Diskus), 1 PUFF INH EVERY 12 HOURS, ( Reported) Guaifenesin* (Adult Wal-Tussin*), 30 ML ORAL EVERY 6 HOURS, (Reported) Insulin Glargine (Lantus), 10 SUBQ DAILY, (Reported) Ipratropium/Albuterol Sulfate (DuoNeb 0.5-3(2.5)mg/3ml), 3 ML HHN Q4HR, ( Reported) Lansoprazole* (Prevacid*), 30 MG ORAL BID, (Reported) Losartan Potassium* (Losartan Potassium*), 50 MG ORAL DAILY, (Reported) Multivitamins* (Multivitamins*), 1 TAB ORAL DAILY, (Reported) Ondansetron Hcl* (Zofran*), 8 MG ORAL EVERY 4 HOURS, (Reported) Pantoprazole* (Protonix*), 40 MG ORAL EVERY 12 HOURS, (Reported) Prednisone (Prednisone), 60 MG PO DAILY, (Reported) Sennosides (Senna), 17.2 MG PO BEDTIME, (Reported) Tiotropium Alden* (Spiriva*), 1 PUFF INH DAILY, (Reported) Scheduled PRN Lorazepam* (Ativan*), 0.5 MG ORAL DAILY PRN for For Anxiety, (Reported) Meclizine Hcl* (Meclizine*), 25 MG ORAL THREE TIMES A DAY PRN for for dizziness, (Reported) Patient History Healthcare decision maker Resuscitation status Do Not Resuscitate Advanced Directive on File Patient History Narrative Pmhx: as above Shx: Denies: smoking, alcohol use, drug use Fhx: non contributory Physical Exam Physical Exam Narrative General Appearance: no apparent distress, alert, GCS 15, non-toxic HEENT: normocephalic, atraumatic, bilateral eye PERRL Respiratory: chest non-tender, lungs clear, normal breath sounds, speaking full sentences Cardiovascular regular rate, rhythm, no edema Gastrointestinal: normal bowel sounds, soft, non-distended, no guarding, no rebound, tenderness Genitourinary: normal inspection, no CVA tenderness Musculoskeletal: back normal, gait/station normal, normal range of motion, non- tender Neurologic: alert, oriented x3, responsive, motor strength/tone normal, sensory intact, speech normal Skin: normal color, no rash, warm/dry, well hydrated Last 24 Hour Vital Signs Date Time Temp Pulse Resp B/P (MAP) Pulse Ox O2 Delivery O2 Flow Rate FiO2 04/26/18 09:00 137/80 04/26/18 08:00 99.1 113 20 137/80 (99) 95 04/26/18 04:00 98.1 117 19 120/74 (89) 95 04/25/18 23:54 Nasal Cannula 2.0 04/25/18 23:00 98.1 116 20 146/80 (102) 96 04/25/18 22:59 98.1 110 18 120/65 99 Nasal Cannula 2.0 04/25/18 20:32 98.1 110 18 120/65 99 Nasal Cannula 2.0 04/25/18 20:32 110 18 Nasal Cannula 2.0 04/25/18 20:07 98.1 04/25/18 19:03 98.1 110 18 120/65 99 Nasal Cannula 2.0 Intake and Output 04/25/18 04/26/18 19:00 07:00 Intake Total 240 ml Output Total 300 ml Balance -60 ml Intake IV Total 240 ml Output Urine Total 300 ml # Voids 2 # Bowel Movements 1 Laboratory Tests Test 04/25/18 19:50 04/25/18 20:20 04/26/18 05:10 White Blood Count 20.8 K/UL (4.8-10.8) H 21.6 K/UL (4.8-10.8) H Red Blood Count 3.62 M/UL (4.70-6.10) L 3.35 M/UL (4.70-6.10) L Hemoglobin 10.6 G/DL (14.2-18.0) L 9.7 G/DL (14.2-18.0) L Hematocrit 32.4 % (42.0-52.0) L 30.0 % (42.0-52.0) L Mean Corpuscular Volume 89 FL (80-99) 90 FL (80-99) Mean Corpuscular Hemoglobin 29.1 PG (27.0-31.0) 28.9 PG (27.0-31.0) Mean Corpuscular Hemoglobin Concent 32.6 G/DL (32.0-36.0) 32.3 G/DL (32.0-36.0) Red Cell Distribution Width 16.2 % (11.6-14.8) H 16.2 % (11.6-14.8) H Platelet Count 401 K/UL (150-450) 369 K/UL (150-450) Mean Platelet Volume 5.7 FL (6.5-10.1) L 5.4 FL (6.5-10.1) L Neutrophils (%) (Auto) % (45.0-75.0) % (45.0-75.0) Lymphocytes (%) (Auto) % (20.0-45.0) % (20.0-45.0) Monocytes (%) (Auto) % (1.0-10.0) % (1.0-10.0) Eosinophils (%) (Auto) % (0.0-3.0) % (0.0-3.0) Basophils (%) (Auto) % (0.0-2.0) % (0.0-2.0) Differential Total Cells Counted 100 100 Neutrophils % (Manual) 93 % (45-75) H 84 % (45-75) H Lymphocytes % (Manual) 1 % (20-45) L 5 % (20-45) L Monocytes % (Manual) 4 % (1-10) 9 % (1-10) Eosinophils % (Manual) 1 % (0-3) 0 % (0-3) Basophils % (Manual) 0 % (0-2) 0 % (0-2) Band Neutrophils 1 % (0-8) 2 % (0-8) Platelet Estimate Adequate Adequate Platelet Morphology Normal Normal Polychromasia 1+ Anisocytosis 1+ 1+ Sodium Level 135 MMOL/L (136-145) L 134 MMOL/L (136-145) L Potassium Level 4.4 MMOL/L (3.5-5.1) 4.3 MMOL/L (3.5-5.1) Chloride Level 99 MMOL/L (98-107) 98 MMOL/L (98-107) Carbon Dioxide Level 26 MMOL/L (21-32) 24 MMOL/L (21-32) Anion Gap 10 mmol/L (5-15) 12 mmol/L (5-15) Blood Urea Nitrogen 19 mg/dL (7-18) H 17 mg/dL (7-18) Creatinine 1.1 MG/DL (0.55-1.30) 1.1 MG/DL (0.55-1.30) Estimat Glomerular Filtration Rate mL/min (>60) mL/min (>60) Glucose Level 192 MG/DL (74-106) H 192 MG/DL (74-106) H Calcium Level 9.7 MG/DL (8.5-10.1) 9.7 MG/DL (8.5-10.1) Total Bilirubin 0.5 MG/DL (0.2-1.0) Aspartate Amino Transf (AST/SGOT) 16 U/L (15-37) Alanine Aminotransferase (ALT/SGPT) 16 U/L (12-78) Alkaline Phosphatase 93 U/L (46-116) Total Protein 7.1 G/DL (6.4-8.2) Albumin 2.4 G/DL (3.4-5.0) L Globulin 4.7 g/dL Albumin/Globulin Ratio 0.5 (1.0-2.7) L Lipase 58 U/L (73-393) L Urine Color Pale yellow Urine Appearance Clear Urine pH 8 (4.5-8.0) Urine Specific [place] 1.010 (1.005-1.035) Urine Protein 2+ (NEGATIVE) H Urine Glucose (UA) 1+ (NEGATIVE) H Urine Ketones 3+ (NEGATIVE) H Urine Blood Negative (NEGATIVE) Urine Nitrite Negative (NEGATIVE) Urine Bilirubin Negative (NEGATIVE) Urine Urobilinogen Normal MG/DL (0.0-1.0) Urine Leukocyte Esterase Negative (NEGATIVE) Urine RBC 0-2 /HPF (0 - 0) H Urine WBC 0-2 /HPF (0 - 0) Urine Squamous Epithelial Cells Few /LPF (NONE/OCC) Urine Bacteria None /HPF (NONE) Height (Feet): 5 Height (Inches): 9.00 Weight (Pounds): 140 Medications Current Medications Medications (Trade) Dose Ordered Sig/Amish Route PRN Reason Start Time Stop Time Status Last Admin Dose Admin Aspirin (ASA) 81 mg DAILY ORAL 04/26/18 09:00 05/26/18 08:59 Atorvastatin Calcium (Lipitor) 80 mg BEDTIME ORAL 04/26/18 21:00 05/26/18 20:59 Barium Sulfate (Readi-Cat 2) 450 ml NOW PRN ORAL Radiology Procedure 04/26/18 08:15 04/28/18 08:01 Bisacodyl (Dulcolax) 10 mg DAILYPRN PRN RECTAL Constipation 04/26/18 02:30 05/26/18 02:29 Calcium Carbonate (Tums) 250 mg Q4H PRN ORAL Nausea & Vomiting 04/26/18 06:30 05/26/18 02:29 Cetirizine HCl (ZyrTEC) 10 mg DAILY ORAL 04/26/18 09:00 05/26/18 08:59 Cyanocobalamin (Vitamin B-12) 500 mcg DAILY ORAL 04/26/18 09:00 05/26/18 08:59 Dextrose/Sodium Chloride 1,000 ml @ 60 mls/hr [id number] IV 04/26/18 02:15 05/26/18 02:14 04/26/18 02:45 Docusate Sodium (Colace) 100 mg TWICE A DAY ORAL 04/26/18 09:00 05/26/18 08:59 Doxazosin Mesylate (Cardura) 4 mg BEDTIME ORAL 04/26/18 21:00 05/26/18 20:59 Ferrous Sulfate (Feosol) 325 mg THREE TIMES A DAY ORAL 04/26/18 09:00 05/26/18 08:59 Heparin Sodium (Porcine) (Heparin 5000 units/ml) 5,000 units EVERY 12 HOURS SUBQ 04/26/18 09:00 05/26/18 08:59 Iopamidol (Isovue-300 100ml) 100 ml NOW PRN INJ Radiology Procedure 04/25/18 19:30 Iopamidol (Isovue-300 100ml) 100 ml NOW PRN INJ Radiology Procedure 04/26/18 08:15 04/27/18 23:59 Lactulose (Cephulac) 10 gm THREE TIMES A DAY ORAL 04/26/18 09:00 05/26/18 08:59 04/26/18 09:50 Lorazepam (Ativan) 1 mg Q12H PRN ORAL For Anxiety 04/26/18 02:30 05/03/18 02:29 Losartan Potassium (Cozaar) 50 mg DAILY ORAL 04/26/18 09:00 05/26/18 08:59 Magnesium Hydroxide (Mom) 30 ml HSPRN PRN ORAL Constipation 04/26/18 02:30 05/26/18 02:29 Meclizine HCl (Antivert) 25 mg Q8H PRN ORAL for dizziness 04/26/18 02:30 05/26/18 02:29 Morphine Sulfate (Morphine Sulfate) 2 mg Q4H PRN IVP For Pain 04/26/18 02:15 05/03/18 02:14 04/26/18 08:00 Ondansetron HCl (Zofran) 4 mg Q4H PRN IVP Nausea & Vomiting 04/26/18 02:15 05/26/18 02:14 04/26/18 03:23 Pantoprazole (Protonix) 40 mg ACBREAKFAST ORAL 04/26/18 06:30 05/26/18 06:29 04/26/18 06:11 Polyethylene Glycol (Miralax) 17 gm BEDTIME ORAL 04/26/18 21:00 05/26/18 20:59 Sennosides (Senokot) 17.2 mg BEDTIME ORAL 04/26/18 21:00 05/26/18 20:59 Sodium Phosphate (Fleet's Sodium Phosl Enema) 133 ml QOD PRN RECTAL Constipation 04/26/18 02:30 05/26/18 02:29 Tiotropium Alden (Spiriva Inhaler) 1 puff DAILY INH 04/26/18 09:00 05/26/18 08:59 Vitamin D (Vitamin D) 400 intlu DAILY ORAL 04/26/18 09:00 05/26/18 08:59 Assessment/Plan Assessment/Plan Abx: Zosyn x 1 04/25 Assessment: Sepsis- likely from intrabdominal source- r/o bacteremia u/a neg Bcx p CXR p Coffee ground emesis Abdominal pain -CT ab/p p Afebrile Leukocytosis Recent PNA, s/p Rx -04/17 sp cx MRSA, PsA (franklin S) -influenz sc neg GERD DM2 HTN COPD SNF resident anemia BPH PVD cachectic DNR Plan: -Continue empiric Zosyn pending cultures and clinical improvement -04/22 SP PO Levaquin and Linezolid #7 -04/16 SP Augmentin #1 -f/u CT abd./p, CXR -f/u cx -Monitor CBC/CMP, temperatures -GI eval -aspiration precautions Thank you for this consultation. Will continue to follow along with you. Discussed with EFRAÍN. Paula Light M.D. Apr 26, 2018 10:19
[2018-04-26] MEDS: Piperacillin/Tazobactam 3.375 GM in D5W 110 ML IVPB SCH ×2 (11:32→21:04)
[2018-04-26 12:00] VITALS: BP 137/61
--- NOTE | 2018-04-26 12:21 | Consultation ---
History of Present Illness General Date patient seen: Apr 26, 2018 Time patient seen: 12:17 Chief Complaint: Abdominal Pain Present Illness HPI [employer] [facility] came in via ambulance with complaint of abdominal pain. vomit x1 brown emesis. refuse to eat. on 2L NC, tachycardic, was diagnosed with fecal impaction and leukocytosis, and admitted to medical floor for further treatment. He has hx of GERD, DM2, HTN, COPD Allergies: Coded Allergies: RISPERIDONE (Verified Allergy, Intermediate, 04/27/16) Medication History Scheduled Aspirin* (Aspirin*), 81 MG ORAL DAILY, (Reported) Atorvastatin Calcium* (Lipitor*), 80 MG ORAL BEDTIME, (Reported) Calcium Carbonate (Tums), 200 MG PO Q4HR, (Reported) Cetirizine Hcl* (Zyrtec*), 10 MG ORAL DAILY, (Reported) Cholecalciferol (Vitamin D3) (Vitamin D-400*), 400 UNITS ORAL DAILY, (Reported) Cyanocobalamin (Vitamin B-12)* (Vitamin B-12*), 500 MCG ORAL DAILY, (Reported) Docusate Sodium* (Docusate Sodium*), 100 MG ORAL TWICE A DAY, (Reported) Doxazosin Mesylate* (Cardura*), 6 MG ORAL BEDTIME, (Reported) Doxazosin Mesylate* (Cardura*), 4 MG ORAL HS, (Reported) Ferrous Sulfate* (Ferrous Sulfate*), 325 MG ORAL THREE TIMES A DAY, (Reported) Fluticasone Propionate (Flonase Allergy Relief), 9.9 ML NS BID, (Reported) Fluticasone/Salmeterol (Advair 250-50 Diskus), 1 PUFF INH EVERY 12 HOURS, ( Reported) Guaifenesin* (Adult Wal-Tussin*), 30 ML ORAL EVERY 6 HOURS, (Reported) Insulin Glargine (Lantus), 10 SUBQ DAILY, (Reported) Ipratropium/Albuterol Sulfate (DuoNeb 0.5-3(2.5)mg/3ml), 3 ML HHN Q4HR, ( Reported) Lansoprazole* (Prevacid*), 30 MG ORAL BID, (Reported) Losartan Potassium* (Losartan Potassium*), 50 MG ORAL DAILY, (Reported) Multivitamins* (Multivitamins*), 1 TAB ORAL DAILY, (Reported) Ondansetron Hcl* (Zofran*), 8 MG ORAL EVERY 4 HOURS, (Reported) Pantoprazole* (Protonix*), 40 MG ORAL EVERY 12 HOURS, (Reported) Prednisone (Prednisone), 60 MG PO DAILY, (Reported) Sennosides (Senna), 17.2 MG PO BEDTIME, (Reported) Tiotropium Rowe* (Spiriva*), 1 PUFF INH DAILY, (Reported) Scheduled PRN Lorazepam* (Ativan*), 0.5 MG ORAL DAILY PRN for For Anxiety, (Reported) Meclizine Hcl* (Meclizine*), 25 MG ORAL THREE TIMES A DAY PRN for for dizziness, (Reported) Patient History Healthcare decision maker Resuscitation status Do Not Resuscitate Advanced Directive on File Review of Systems Constitutional: Reports: no symptoms Eye: Reports: no symptoms ENT: Reports: no symptoms Gastrointestinal: Reports: abdominal pain, nausea, vomiting Genitourinary: Reports: no symptoms Musculoskeletal: Reports: no symptoms Skin: Reports: no symptoms Psychiatric: Reports: no symptoms Neurological: Reports: no symptoms, other Endocrine: Reports: no symptoms Hematologic/Lymphatic: Reports: no symptoms Physical Exam General Appearance: no apparent distress, alert, mild distress Lines, tubes and drains: peripheral HEENT: normocephalic, atraumatic, anicteric, mucous membranes moist Neck: non-tender, normal alignment, supple, normal inspection Respiratory/Chest: chest wall non-tender, lungs clear Cardiovascular/Chest: normal peripheral pulses, normal rate, regular rhythm Abdomen: normal bowel sounds, non tender, soft, no organomegaly Extremities: normal range of motion, non-tender, normal inspection, no calf tenderness, normal capillary refill Skin Exam: normal pigmentation, warm/dry, cyanotic 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, no motor/sensory deficits Last 24 Hour Vital Signs Date Time Temp Pulse Resp B/P (MAP) Pulse Ox O2 Delivery O2 Flow Rate FiO2 04/26/18 11:42 59 16 95 Nasal Cannula 2.0 28 04/26/18 11:42 59 16 95 Nasal Cannula 2.0 28 04/26/18 09:00 137/80 04/26/18 09:00 Nasal Cannula 2.0 04/26/18 08:00 99.1 113 20 137/80 (99) 95 12/22/18 04:00 98.1 117 19 120/74 (89) 95 04/25/18 23:54 Nasal Cannula 2.0 04/25/18 23:00 98.1 116 20 146/80 (102) 96 04/25/18 22:59 98.1 110 18 120/65 99 Nasal Cannula 2.0 04/25/18 20:32 98.1 110 18 120/65 99 Nasal Cannula 2.0 04/25/18 20:32 110 18 Nasal Cannula 2.0 04/25/18 20:07 98.1 04/25/18 19:03 98.1 110 18 120/65 99 Nasal Cannula 2.0 Intake and Output 04/25/18 04/26/18 19:00 07:00 Intake Total 240 ml Output Total 300 ml Balance -60 ml Intake IV Total 240 ml Output Urine Total 300 ml # Voids 2 # Bowel Movements 1 Laboratory Tests Test 04/25/18 19:50 04/25/18 20:20 04/26/18 05:10 White Blood Count 20.8 K/UL (4.8-10.8) H 21.6 K/UL (4.8-10.8) H Red Blood Count 3.62 M/UL (4.70-6.10) L 3.35 M/UL (4.70-6.10) L Hemoglobin 10.6 G/DL (14.2-18.0) L 9.7 G/DL (14.2-18.0) L Hematocrit 32.4 % (42.0-52.0) L 30.0 % (42.0-52.0) L Mean Corpuscular Volume 89 FL (80-99) 90 FL (80-99) Mean Corpuscular Hemoglobin 29.1 PG (27.0-31.0) 28.9 PG (27.0-31.0) Mean Corpuscular Hemoglobin Concent 32.6 G/DL (32.0-36.0) 32.3 G/DL (32.0-36.0) Red Cell Distribution Width 16.2 % (11.6-14.8) H 16.2 % (11.6-14.8) H Platelet Count 401 K/UL (150-450) 369 K/UL (150-450) Mean Platelet Volume 5.7 FL (6.5-10.1) L 5.4 FL (6.5-10.1) L Neutrophils (%) (Auto) % (45.0-75.0) % (45.0-75.0) Lymphocytes (%) (Auto) % (20.0-45.0) % (20.0-45.0) Monocytes (%) (Auto) % (1.0-10.0) % (1.0-10.0) Eosinophils (%) (Auto) % (0.0-3.0) % (0.0-3.0) Basophils (%) (Auto) % (0.0-2.0) % (0.0-2.0) Differential Total Cells Counted 100 100 Neutrophils % (Manual) 93 % (45-75) H 84 % (45-75) H Lymphocytes % (Manual) 1 % (20-45) L 5 % (20-45) L Monocytes % (Manual) 4 % (1-10) 9 % (1-10) Eosinophils % (Manual) 1 % (0-3) 0 % (0-3) Basophils % (Manual) 0 % (0-2) 0 % (0-2) Band Neutrophils 1 % (0-8) 2 % (0-8) Platelet Estimate Adequate Adequate Platelet Morphology Normal Normal Polychromasia 1+ Anisocytosis 1+ 1+ Sodium Level 135 MMOL/L (136-145) L 134 MMOL/L (136-145) L Potassium Level 4.4 MMOL/L (3.5-5.1) 4.3 MMOL/L (3.5-5.1) Chloride Level 99 MMOL/L (98-107) 98 MMOL/L (98-107) Carbon Dioxide Level 26 MMOL/L (21-32) 24 MMOL/L (21-32) Anion Gap 10 mmol/L (5-15) 12 mmol/L (5-15) Blood Urea Nitrogen 19 mg/dL (7-18) H 17 mg/dL (7-18) Creatinine 1.1 MG/DL (0.55-1.30) 1.1 MG/DL (0.55-1.30) Estimat Glomerular Filtration Rate mL/min (>60) mL/min (>60) Glucose Level 192 MG/DL (74-106) H 192 MG/DL (74-106) H Calcium Level 9.7 MG/DL (8.5-10.1) 9.7 MG/DL (8.5-10.1) Total Bilirubin 0.5 MG/DL (0.2-1.0) Aspartate Amino Transf (AST/SGOT) 16 U/L (15-37) Alanine Aminotransferase (ALT/SGPT) 16 U/L (12-78) Alkaline Phosphatase 93 U/L (46-116) Total Protein 7.1 G/DL (6.4-8.2) Albumin 2.4 G/DL (3.4-5.0) L Globulin 4.7 g/dL Albumin/Globulin Ratio 0.5 (1.0-2.7) L Lipase 58 U/L (73-393) L Urine Color Pale yellow Urine Appearance Clear Urine pH 8 (4.5-8.0) Urine Specific [place] 1.010 (1.005-1.035) Urine Protein 2+ (NEGATIVE) H Urine Glucose (UA) 1+ (NEGATIVE) H Urine Ketones 3+ (NEGATIVE) H Urine Blood Negative (NEGATIVE) Urine Nitrite Negative (NEGATIVE) Urine Bilirubin Negative (NEGATIVE) Urine Urobilinogen Normal MG/DL (0.0-1.0) Urine Leukocyte Esterase Negative (NEGATIVE) Urine RBC 0-2 /HPF (0 - 0) H Urine WBC 0-2 /HPF (0 - 0) Urine Squamous Epithelial Cells Few /LPF (NONE/OCC) Urine Bacteria None /HPF (NONE) Height (Feet): 5 Height (Inches): 9.00 Weight (Pounds): 140 Medications Current Medications Medications (Trade) Dose Ordered Sig/Amish Route PRN Reason Start Time Stop Time Status Last Admin Dose Admin Aspirin (ASA) 81 mg DAILY ORAL 04/26/18 09:00 05/26/18 08:59 Atorvastatin Calcium (Lipitor) 80 mg BEDTIME ORAL 04/26/18 21:00 05/26/18 20:59 Barium Sulfate (Readi-Cat 2) 450 ml NOW PRN ORAL Radiology Procedure 04/26/18 08:15 04/28/18 08:01 Bisacodyl (Dulcolax) 10 mg DAILYPRN PRN RECTAL Constipation 04/26/18 02:30 05/26/18 02:29 Calcium Carbonate (Tums) 250 mg Q4H PRN ORAL Nausea & Vomiting 04/26/18 06:30 05/26/18 02:29 Cetirizine HCl (ZyrTEC) 10 mg DAILY ORAL 04/26/18 09:00 05/26/18 08:59 Cyanocobalamin (Vitamin B-12) 500 mcg DAILY ORAL 04/26/18 09:00 05/26/18 08:59 Dextrose/Sodium Chloride 1,000 ml @ 60 mls/hr [id number] IV 04/26/18 02:15 05/26/18 02:14 04/26/18 02:45 Docusate Sodium (Colace) 100 mg TWICE A DAY ORAL 04/26/18 09:00 05/26/18 08:59 Doxazosin Mesylate (Cardura) 4 mg BEDTIME ORAL 04/26/18 21:00 05/26/18 20:59 Ferrous Sulfate (Feosol) 325 mg THREE TIMES A DAY ORAL 04/26/18 09:00 05/26/18 08:59 Heparin Sodium (Porcine) (Heparin 5000 units/ml) 5,000 units EVERY 12 HOURS SUBQ 04/26/18 09:00 05/26/18 08:59 Iopamidol (Isovue-300 100ml) 100 ml NOW PRN INJ Radiology Procedure 04/25/18 19:30 Iopamidol (Isovue-300 100ml) 100 ml NOW PRN INJ Radiology Procedure 04/26/18 08:15 04/27/18 23:59 Lactulose (Cephulac) 10 gm THREE TIMES A DAY ORAL 04/26/18 09:00 05/26/18 08:59 04/26/18 09:50 Lorazepam (Ativan) 1 mg Q12H PRN ORAL For Anxiety 04/26/18 02:30 05/03/18 02:29 Losartan Potassium (Cozaar) 50 mg DAILY ORAL 04/26/18 09:00 05/26/18 08:59 Magnesium Hydroxide (Mom) 30 ml HSPRN PRN ORAL Constipation 04/26/18 02:30 05/26/18 02:29 Meclizine HCl (Antivert) 25 mg Q8H PRN ORAL for dizziness 04/26/18 02:30 05/26/18 02:29 Morphine Sulfate (Morphine Sulfate) 2 mg Q4H PRN IVP For Pain 04/26/18 02:15 05/03/18 02:14 04/26/18 08:00 Ondansetron HCl (Zofran) 4 mg Q4H PRN IVP Nausea & Vomiting 04/26/18 02:15 05/26/18 02:14 04/26/18 03:23 Pantoprazole (Protonix) 40 mg ACBREAKFAST ORAL 04/26/18 06:30 05/26/18 06:29 04/26/18 06:11 Piperacillin Sod/ Tazobactam Sod 3.375 gm/Dextrose 110 ml @ 27.5 mls/hr EVERY 8 HOURS IVPB 04/26/18 11:30 05/01/18 11:29 04/26/18 11:32 Polyethylene Glycol (Miralax) 17 gm BEDTIME ORAL 04/26/18 21:00 05/26/18 20:59 Sennosides (Senokot) 17.2 mg BEDTIME ORAL 04/26/18 21:00 05/26/18 20:59 Sodium Phosphate (Fleet's Sodium Phosl Enema) 133 ml QOD PRN RECTAL Constipation 04/26/18 02:30 05/26/18 02:29 Tiotropium Rowe (Spiriva Inhaler) 1 puff DAILY INH 04/26/18 09:00 05/26/18 08:59 04/26/18 11:42 Vitamin D (Vitamin D) 400 intlu DAILY ORAL 04/26/18 09:00 05/26/18 08:59 Assessment/Plan Status: stable Assessment/Plan Assessment: GERD, DM2, HTN, COPD Emesis tachycardia Chest pain, atypical angina Plan: Empiric antibiotics IV fluids Zofran Troponin/EKG Swallow study Follow up CT scan Continue home medications Suraj Valdivia MD Apr 26, 2018 12:21
--- NOTE | 2018-04-26 15:08 | Consultation ---
History of Present Illness General Date patient seen: Apr 26, 2018 Chief Complaint: Abdominal Pain Present Illness HPI 83 year old male with multiple medical comorbidities presented to ED with complaints of worsening abdominal pain, nausea, and emesis. States pain was acute onset and burning generalized abdominal pain. coffee ground emesis. intermittent nausea. leukocytosis. CT without obstruction. surgery called to evaluate. patient seen, chart reviewed, patient examined. states pain much better today compared to last night. currently no nausea or emesis. minimal appetite. passing flatus. Allergies: Coded Allergies: RISPERIDONE (Verified Allergy, Intermediate, 04/27/16) Medication History Scheduled Aspirin* (Aspirin*), 81 MG ORAL DAILY, (Reported) Atorvastatin Calcium* (Lipitor*), 80 MG ORAL BEDTIME, (Reported) Calcium Carbonate (Tums), 200 MG PO Q4HR, (Reported) Cetirizine Hcl* (Zyrtec*), 10 MG ORAL DAILY, (Reported) Cholecalciferol (Vitamin D3) (Vitamin D-400*), 400 UNITS ORAL DAILY, (Reported) Cyanocobalamin (Vitamin B-12)* (Vitamin B-12*), 500 MCG ORAL DAILY, (Reported) Docusate Sodium* (Docusate Sodium*), 100 MG ORAL TWICE A DAY, (Reported) Doxazosin Mesylate* (Cardura*), 6 MG ORAL BEDTIME, (Reported) Doxazosin Mesylate* (Cardura*), 4 MG ORAL HS, (Reported) Ferrous Sulfate* (Ferrous Sulfate*), 325 MG ORAL THREE TIMES A DAY, (Reported) Fluticasone Propionate (Flonase Allergy Relief), 9.9 ML NS BID, (Reported) Fluticasone/Salmeterol (Advair 250-50 Diskus), 1 PUFF INH EVERY 12 HOURS, ( Reported) Guaifenesin* (Adult Wal-Tussin*), 30 ML ORAL EVERY 6 HOURS, (Reported) Insulin Glargine (Lantus), 10 SUBQ DAILY, (Reported) Ipratropium/Albuterol Sulfate (DuoNeb 0.5-3(2.5)mg/3ml), 3 ML HHN Q4HR, ( Reported) Lansoprazole* (Prevacid*), 30 MG ORAL BID, (Reported) Losartan Potassium* (Losartan Potassium*), 50 MG ORAL DAILY, (Reported) Multivitamins* (Multivitamins*), 1 TAB ORAL DAILY, (Reported) Ondansetron Hcl* (Zofran*), 8 MG ORAL EVERY 4 HOURS, (Reported) Pantoprazole* (Protonix*), 40 MG ORAL EVERY 12 HOURS, (Reported) Prednisone (Prednisone), 60 MG PO DAILY, (Reported) Sennosides (Senna), 17.2 MG PO BEDTIME, (Reported) Tiotropium [place]* (Spiriva*), 1 PUFF INH DAILY, (Reported) Scheduled PRN Lorazepam* (Ativan*), 0.5 MG ORAL DAILY PRN for For Anxiety, (Reported) Meclizine Hcl* (Meclizine*), 25 MG ORAL THREE TIMES A DAY PRN for for dizziness, (Reported) Patient History History Provided By: Patient, Medical Record, PMD Healthcare decision maker Resuscitation status Do Not Resuscitate Advanced Directive on File Past Medical/Surgical History Past Medical/Surgical History: (1) Emphysema of lung (2) PVD (peripheral vascular disease) (3) Hypertension (4) Severe protein-calorie malnutrition (5) Acute respiratory failure (6) ATN (acute tubular necrosis) (7) CKD (chronic kidney disease) (8) Pneumonia (9) Anemia (10) GERD (gastroesophageal reflux disease) (11) Constipation (12) Wound of sacral region (13) Abdominal pain (14) Intractable vomiting (15) Fecal impaction (16) Leukocytosis Review of Systems All Other Systems: negative except mentioned in HPI Physical Exam General Appearance: no apparent distress, alert Lines, tubes and drains: peripheral HEENT: mucous membranes moist Neck: normal inspection Respiratory/Chest: normal breath sounds, no respiratory distress Cardiovascular/Chest: regular rhythm Abdomen: normal bowel sounds, non tender, soft, no organomegaly, no mass Extremities: normal inspection Neurologic: alert, responsive Last 24 Hour Vital Signs Date Time Temp Pulse Resp B/P (MAP) Pulse Ox O2 Delivery O2 Flow Rate FiO2 04/26/18 12:00 98.1 79 20 137/61 (86) 95 04/26/18 11:42 59 16 95 Nasal Cannula 2.0 28 04/26/18 11:42 59 16 95 Nasal Cannula 2.0 28 04/26/18 09:00 137/80 04/26/18 09:00 Nasal Cannula 2.0 04/26/18 08:00 99.1 113 20 137/80 (99) 95 04/26/18 04:00 98.1 117 19 120/74 (89) 95 04/25/18 23:54 Nasal Cannula 2.0 04/25/18 23:00 98.1 116 20 146/80 (102) 96 04/25/18 22:59 98.1 110 18 120/65 99 Nasal Cannula 2.0 04/25/18 20:32 98.1 110 18 120/65 99 Nasal Cannula 2.0 04/25/18 20:32 110 18 Nasal Cannula 2.0 04/25/18 20:07 98.1 04/25/18 19:03 98.1 110 18 120/65 99 Nasal Cannula 2.0 Intake and Output 04/25/18 04/26/18 19:00 07:00 Intake Total 240 ml Output Total 300 ml Balance -60 ml Intake IV Total 240 ml Output Urine Total 300 ml # Voids 2 # Bowel Movements 1 Laboratory Tests Test 04/25/18 19:50 04/25/18 20:20 04/26/18 05:10 White Blood Count 20.8 K/UL (4.8-10.8) H 21.6 K/UL (4.8-10.8) H Red Blood Count 3.62 M/UL (4.70-6.10) L 3.35 M/UL (4.70-6.10) L Hemoglobin 10.6 G/DL (14.2-18.0) L 9.7 G/DL (14.2-18.0) L Hematocrit 32.4 % (42.0-52.0) L 30.0 % (42.0-52.0) L Mean Corpuscular Volume 89 FL (80-99) 90 FL (80-99) Mean Corpuscular Hemoglobin 29.1 PG (27.0-31.0) 28.9 PG (27.0-31.0) Mean Corpuscular Hemoglobin Concent 32.6 G/DL (32.0-36.0) 32.3 G/DL (32.0-36.0) Red Cell Distribution Width 16.2 % (11.6-14.8) H 16.2 % (11.6-14.8) H Platelet Count 401 K/UL (150-450) 369 K/UL (150-450) Mean Platelet Volume 5.7 FL (6.5-10.1) L 5.4 FL (6.5-10.1) L Neutrophils (%) (Auto) % (45.0-75.0) % (45.0-75.0) Lymphocytes (%) (Auto) % (20.0-45.0) % (20.0-45.0) Monocytes (%) (Auto) % (1.0-10.0) % (1.0-10.0) Eosinophils (%) (Auto) % (0.0-3.0) % (0.0-3.0) Basophils (%) (Auto) % (0.0-2.0) % (0.0-2.0) Differential Total Cells Counted 100 100 Neutrophils % (Manual) 93 % (45-75) H 84 % (45-75) H Lymphocytes % (Manual) 1 % (20-45) L 5 % (20-45) L Monocytes % (Manual) 4 % (1-10) 9 % (1-10) Eosinophils % (Manual) 1 % (0-3) 0 % (0-3) Basophils % (Manual) 0 % (0-2) 0 % (0-2) Band Neutrophils 1 % (0-8) 2 % (0-8) Platelet Estimate Adequate Adequate Platelet Morphology Normal Normal Polychromasia 1+ Anisocytosis 1+ 1+ Sodium Level 135 MMOL/L (136-145) L 134 MMOL/L (136-145) L Potassium Level 4.4 MMOL/L (3.5-5.1) 4.3 MMOL/L (3.5-5.1) Chloride Level 99 MMOL/L (98-107) 98 MMOL/L (98-107) Carbon Dioxide Level 26 MMOL/L (21-32) 24 MMOL/L (21-32) Anion Gap 10 mmol/L (5-15) 12 mmol/L (5-15) Blood Urea Nitrogen 19 mg/dL (7-18) H 17 mg/dL (7-18) Creatinine 1.1 MG/DL (0.55-1.30) 1.1 MG/DL (0.55-1.30) Estimat Glomerular Filtration Rate mL/min (>60) mL/min (>60) Glucose Level 192 MG/DL (74-106) H 192 MG/DL (74-106) H Calcium Level 9.7 MG/DL (8.5-10.1) 9.7 MG/DL (8.5-10.1) Total Bilirubin 0.5 MG/DL (0.2-1.0) Aspartate Amino Transf (AST/SGOT) 16 U/L (15-37) Alanine Aminotransferase (ALT/SGPT) 16 U/L (12-78) Alkaline Phosphatase 93 U/L (46-116) Total Protein 7.1 G/DL (6.4-8.2) Albumin 2.4 G/DL (3.4-5.0) L Globulin 4.7 g/dL Albumin/Globulin Ratio 0.5 (1.0-2.7) L Lipase 58 U/L (73-393) L Urine Color Pale yellow Urine Appearance Clear Urine pH 8 (4.5-8.0) Urine Specific [place] 1.010 (1.005-1.035) Urine Protein 2+ (NEGATIVE) H Urine Glucose (UA) 1+ (NEGATIVE) H Urine Ketones 3+ (NEGATIVE) H Urine Blood Negative (NEGATIVE) Urine Nitrite Negative (NEGATIVE) Urine Bilirubin Negative (NEGATIVE) Urine Urobilinogen Normal MG/DL (0.0-1.0) Urine Leukocyte Esterase Negative (NEGATIVE) Urine RBC 0-2 /HPF (0 - 0) H Urine WBC 0-2 /HPF (0 - 0) Urine Squamous Epithelial Cells Few /LPF (NONE/OCC) Urine Bacteria None /HPF (NONE) Height (Feet): 5 Height (Inches): 9.00 Weight (Pounds): 140 Medications Current Medications Medications (Trade) Dose Ordered Sig/Amish Route PRN Reason Start Time Stop Time Status Last Admin Dose Admin Aspirin (ASA) 81 mg DAILY ORAL 04/26/18 09:00 05/26/18 08:59 Atorvastatin Calcium (Lipitor) 80 mg BEDTIME ORAL 04/26/18 21:00 05/26/18 20:59 Barium Sulfate (Readi-Cat 2) 450 ml NOW PRN ORAL Radiology Procedure 04/26/18 08:15 04/28/18 08:01 Bisacodyl (Dulcolax) 10 mg DAILYPRN PRN RECTAL Constipation 04/26/18 02:30 05/26/18 02:29 Calcium Carbonate (Tums) 250 mg Q4H PRN ORAL Nausea & Vomiting 04/26/18 06:30 05/26/18 02:29 Cetirizine HCl (ZyrTEC) 10 mg DAILY ORAL 04/26/18 09:00 05/26/18 08:59 Cyanocobalamin (Vitamin B-12) 500 mcg DAILY ORAL 04/26/18 09:00 05/26/18 08:59 Dextrose/Sodium Chloride 1,000 ml @ 60 mls/hr [id number] IV 04/26/18 02:15 05/26/18 02:14 04/26/18 02:45 Docusate Sodium (Colace) 100 mg TWICE A DAY ORAL 04/26/18 09:00 05/26/18 08:59 Doxazosin Mesylate (Cardura) 4 mg BEDTIME ORAL 04/26/18 21:00 05/26/18 20:59 Ferrous Sulfate (Feosol) 325 mg THREE TIMES A DAY ORAL 04/26/18 09:00 05/26/18 08:59 Heparin Sodium (Porcine) (Heparin 5000 units/ml) 5,000 units EVERY 12 HOURS SUBQ 04/26/18 09:00 05/26/18 08:59 Iopamidol (Isovue-300 100ml) 100 ml NOW PRN INJ Radiology Procedure 04/25/18 19:30 Iopamidol (Isovue-300 100ml) 100 ml NOW PRN INJ Radiology Procedure 04/26/18 08:15 04/27/18 23:59 Lactulose (Cephulac) 10 gm THREE TIMES A DAY ORAL 04/26/18 09:00 05/26/18 08:59 04/26/18 12:59 Lorazepam (Ativan) 1 mg Q12H PRN ORAL For Anxiety 04/26/18 02:30 05/03/18 02:29 Losartan Potassium (Cozaar) 50 mg DAILY ORAL 04/26/18 09:00 05/26/18 08:59 Magnesium Hydroxide (Mom) 30 ml HSPRN PRN ORAL Constipation 04/26/18 02:30 05/26/18 02:29 Meclizine HCl (Antivert) 25 mg Q8H PRN ORAL for dizziness 04/26/18 02:30 05/26/18 02:29 Memantine (Namenda) 5 mg BID ORAL 04/26/18 18:00 05/26/18 17:59 Morphine Sulfate (Morphine Sulfate) 2 mg Q4H PRN IVP For Pain 04/26/18 02:15 05/03/18 02:14 04/26/18 08:00 Olanzapine (ZyPREXA Zydis) 5 mg BID ORAL 04/26/18 18:00 05/26/18 17:59 Ondansetron HCl (Zofran) 4 mg Q4H PRN IVP Nausea & Vomiting 04/26/18 02:15 05/26/18 02:14 04/26/18 03:23 Pantoprazole (Protonix) 40 mg ACBREAKFAST ORAL 04/26/18 06:30 05/26/18 06:29 04/26/18 06:11 Piperacillin Sod/ Tazobactam Sod 3.375 gm/Dextrose 110 ml @ 27.5 mls/hr EVERY 8 HOURS IVPB 04/26/18 11:30 05/01/18 11:29 04/26/18 11:32 Polyethylene Glycol (Miralax) 17 gm BEDTIME ORAL 04/26/18 21:00 05/26/18 20:59 Sennosides (Senokot) 17.2 mg BEDTIME ORAL 04/26/18 21:00 05/26/18 20:59 Sodium Phosphate (Fleet's Sodium Phosl Enema) 133 ml QOD PRN RECTAL Constipation 04/26/18 02:30 05/26/18 02:29 Tiotropium [place] (Spiriva Inhaler) 1 puff DAILY INH 04/26/18 09:00 05/26/18 08:59 04/26/18 11:42 Vitamin D (Vitamin D) 400 intlu DAILY ORAL 04/26/18 09:00 05/26/18 08:59 Assessment/Plan Problem List: (1) Abdominal pain Assessment & Plan: abdominal pain. nausea. coffee ground emesis. leukocytosis. labs noted exam benign. abd soft, nt/nd, bs+ CT without obstruction fecal impaction -no acute surgical intervention planned -okay for diet -bowel regimen -GI eval for coffee ground emesis. thank you will follow with recs. ICD Codes: R10.9 - Unspecified abdominal pain SNOMED: 82037873, 853380755 Qualifiers: Qualified Codes: R10.13 - Epigastric pain Status: stable Ilia Rossi Apr 26, 2018 15:08
[2018-04-26 16:00] VITALS: BP 105/63
--- NOTE | 2018-04-26 16:30 | Consultation ---
DATE OF CONSULTATION: 04/26/2018 GASTROENTEROLOGY CONSULTATION CONSULTING PHYSICIAN: Gonzales Sy M.D. REFERRING PHYSICIAN: Leland Joseph D.O. CHIEF COMPLAINT: Abdominal pain and vomiting. HISTORY OF PRESENT ILLNESS: This 83-year-old longterm patient recently was admitted to [facility] and was discharged. The patient readmitted again with complaint of abdominal pain and vomiting. According to the patient, he had endoscopy a few years ago and colonoscopy a few years ago. He stated everything was okay, but did not have a specific diagnosis. PAST MEDICAL HISTORY: Significant for: 1. History of anemia. 2. GERD. 3. Diabetes. 4. BPH. 5. Pneumonia. ALLERGIES: Prednisone. MEDICATIONS: Please see medication reconciliation list. SOCIAL HISTORY: Currently lives in a longterm. No recent history of tobacco, alcohol, or drug abuse. PAST SURGICAL HISTORY: None. FAMILY HISTORY: Noncontributory. REVIEW OF SYSTEMS: A 10-point review of systems was performed and pertinent positives in HPI. PHYSICAL EXAMINATION: VITAL SIGNS: Temperature is 98.1, pulse is 117, respirations 19, and blood pressure 120/74. HEENT: Normocephalic and atraumatic. Mild pale conjunctivae. NECK: Supple. No obvious evidence of lymphadenopathy. CARDIOVASCULAR: Tachycardic. Regular . Plus S1 and S2 LUNGS: Decreased breath sounds bilaterally based on supine exam. ABDOMEN: Soft. Bowel sounds were present. There was minimal tenderness to palpation in the epigastric area. No rebound. No guarding. No peritoneal sign. EXTREMITIES: No cyanosis, no clubbing, and no edema. LABORATORY DATA: Sodium , potassium 4.3, BUN is 17, and creatinine is 1.1. White count is 21, hemoglobin is 9, hematocrit 30, and platelet count is 369,000. ASSESSMENT: This is an 83-year-old male with nausea, vomiting, abdominal pain, leukocytosis, and tachycardia. PLAN: Start the patient on clear-liquid diet. Order labs for tomorrow including CBC, CMP, amylase, and lipase. Order stat CT of the abdomen and pelvis to rule out intra-abdominal process explaining the nausea and vomiting. We are going to also do an anemia workup. The patient might benefit from endoscopy and colonoscopy. We will follow and make that decision later. I want to thank Dr. Leland Joseph for this kind referral. Gonzales Sy M.D. DR: ERNESTO JOB#: [id number] CC: Leland Joseph D.O.
[2018-04-26] MEDS: Memantine 5 MG TAB ORAL SCH (18:00)
[2018-04-26] MEDS ORDERED: OLANZapine 2.5mg tab ORAL SCH (18:00)
[2018-04-26] MEDS: ZyPREXA Zydis 5mg tab ORAL SCH (18:00)
[2018-04-26 20:00] VITALS: BP 96/68
[2018-04-26] MEDS: Miralax 17gm pkt ORAL SCH (20:53)
[2018-04-26] MEDS: Atorvastatin 80mg tab ORAL SCH (20:53)
[2018-04-26] MEDS: Sennosides 8.6mg tab ORAL SCH (20:53)
[2018-04-26] MEDS: Doxazosin 4mg tab ORAL SCH (20:53)
[2018-04-26] MEDS: Tums 500mg ORAL PRN (21:12)
--- NOTE | 2018-04-26 21:45 | Consultation ---
DATE OF CONSULTATION: 04/26/2018 INITIAL PSYCHIATRIC CONSULTATION CONSULTING PHYSICIAN: Darrick Robert M.D. REFERRING PHYSICIAN: Leland Joseph D.O. HISTORY OF PRESENT ILLNESS: This is an 83-year-old male patient. The patient was admitted to the hospital secondary to abdominal pain, vomiting, tachycardia, and he had fecal impaction, but he has been having high level of anxiety and agitation worsened by the abdominal pain. He came in from [facility]. He just got discharged from [facility]. I saw him during his last admission, but then when he went back, he was complaining of a lot of pain in his fpc, so they sent him back to the hospital because he was having excruciating pain. He could not concentrate properly on doing of his ADLs because of such excruciating pain. He started developing altered mental status. Because of his altered mental status and anxiety, that is why daily psychiatric consultation was requested. I saw the patient at bedside today. MEDICAL HISTORY: He has history of emphysema, hypertension, malnutrition, chronic renal disease, GERD. ALLERGY HISTORY: He has allergies to Risperdal. PSYCHOTROPIC MEDICATIONS ON ADMISSION: He has been on psychotropic medications before and has been diagnosed with paranoid schizophrenia, but he came back without any psychotropic medications currently according to his fpc. SUBSTANCE ABUSE HISTORY: No history of any drug and alcohol use. PAIN ASSESSMENT: 07/13 pain. DEVELOPMENTAL PROBLEMS: Denies. FAMILY PSYCHIATRIC HISTORY: Denies. SOCIAL HISTORY: He lives in [facility]. Financially supported by [employer] and Medicare. Not . PSYCHIATRIC HISTORY: Paranoid schizophrenia, rule out depression with psychotic features. States he has had psych admissions before, but he is unable to give me details due to being a poor historian. STRENGTHS: He is motivated to get better and has a place to live. WEAKNESSES AND LIABILITIES: He is impulsive and minimal support system. MENTAL STATUS EXAMINATION: An 83-year-old male. Appearance disheveled. Attitude, irritable and agitated. Affect, guarded and restricted. Intellect is poor because he does not know last four presidents and does not know current events. Mood, depressed and anxious. Motor activity, psychomotor agitation. Attention span is poor because he cannot do serial 7's or spell world backward. Orientation x2. Oriented to person and place, not to time or situation. Speech is pressured. Thought process, disorganized and illogical. Thought content, he has slight paranoid delusions that people are after him and trying to hurt him. Perception is poor because he has paranoid delusions. Abstract reasoning is poor because he has concrete thinking. Does not understand proverbs. His insight is poor because he does not recognize his mood disorder. Judgment is poor because he does not take responsibility for his actions. His short-term memory, 3/3 word recall after 5-minute delay with good short-term memory. Long-term memory is poor because he does not recall long-term events in his life such as high school that he went to. DIAGNOSIS: Major depression with psychotic features, rule out dementia with psychosis. Medical includes abdominal pain, tachycardia, fecal impaction, emphysema, diabetes, hypertension, peripheral vascular disease, chronic renal disease. Psychosocial stressors, financial. PLAN: I am actually going to treat this patient with psychotropic medication regimen consisting of, I am going to continue him on Ativan 1 mg every 12 hours p.r.n. anxiety or agitation. I am also going to treat this patient with a medication regimen of Zyprexa 5 mg sublingual twice a day. The reason I am giving him that is because that way, he can bypass his GI tract and just go sublingual and he does not have to worry about swallowing the medication, but still get the mood-stabilizing effects of Zyprexa Zydis. Continue Namenda 5 mg twice a day and he will continue to be followed by Psychiatry throughout his hospital course. Twenty minutes of cognitive behavioral therapy to help him identify his automatic negative thoughts and help him convert those negative thoughts to more positive thoughts to reduce depression, anxiety, and suicidality. Twenty minutes of cognitive behavioral therapy provided. Seen and assessed in his room. Chart reviewed. Discussed with staff. Seen and assessed at bedside. I would like to thank Dr. Leland Joseph for this interesting consultation. Darrick Robert M.D. DR: Sara JOB#: [id number] CC:
[2018-04-27] VITALS: BP 107/58
[2018-04-27] MEDS: Piperacillin/Tazobactam 3.375 GM in D5W 110 ML IVPB SCH ×3 (05:15→21:46)
--- NOTE | 2018-04-27 08:00 | General Progress Note ---
Assessment/Plan Problem List: (1) Abdominal pain ICD Codes: R10.9 - Unspecified abdominal pain SNOMED: 00424651, 217912517 Qualifiers: Qualified Codes: R10.13 - Epigastric pain (2) Emphysema of lung ICD Codes: J43.9 - Emphysema, unspecified SNOMED: 48131488 (3) Constipation ICD Codes: K59.00 - Constipation, unspecified SNOMED: 82601100 (4) Anemia ICD Codes: D64.9 - Anemia, unspecified SNOMED: 988238180 (5) Fecal impaction ICD Codes: K56.41 - Fecal impaction SNOMED: 48997074 (6) Leukocytosis ICD Codes: D72.829 - Elevated white blood cell count, unspecified SNOMED: 983060951, 775322652 Qualifiers: Qualified Codes: D72.829 - Elevated white blood cell count, unspecified (7) PVD (peripheral vascular disease) ICD Codes: I73.9 - Peripheral vascular disease, unspecified SNOMED: 546172528 (8) GERD (gastroesophageal reflux disease) ICD Codes: K21.9 - Gastro-esophageal reflux disease without esophagitis SNOMED: 800225371 (9) Hypertension ICD Codes: I10 - Essential (primary) hypertension SNOMED: 43096675 (10) Severe protein-calorie malnutrition ICD Codes: E43 - Unspecified severe protein-calorie malnutrition SNOMED: 291504754 (11) CKD (chronic kidney disease) ICD Codes: N18.9 - Chronic kidney disease, unspecified SNOMED: 491865434 (12) Intractable vomiting ICD Codes: R11.10 - Vomiting, unspecified SNOMED: 045553456, 387160964 Qualifiers: Qualified Codes: R11.2 - Nausea with vomiting, unspecified Status: unchanged Assessment/Plan pt diet eval abx gi f/u cbc bmp am Subjective Constitutional: Reports: weakness Allergies: Coded Allergies: RISPERIDONE (Verified Allergy, Intermediate, 04/27/16) All Systems: reviewed and negative except above Subjective sleepy calm Objective Last 24 Hour Vital Signs Date Time Temp Pulse Resp B/P (MAP) Pulse Ox O2 Delivery O2 Flow Rate FiO2 04/27/18 00:00 97.1 112 18 107/58 (74) 97 04/26/18 21:00 Nasal Cannula 2.0 12/22/18 20:00 97.4 103 18 96/68 (77) 97 04/26/18 16:00 97.9 96 20 105/63 (77) 97 04/26/18 12:00 98.1 79 20 137/61 (86) 95 04/26/18 11:42 59 16 95 Nasal Cannula 2.0 28 04/26/18 11:42 59 16 95 Nasal Cannula 2.0 28 04/26/18 09:00 137/80 04/26/18 09:00 Nasal Cannula 2.0 04/26/18 08:00 99.1 113 20 137/80 (99) 95 Intake and Output 04/26/18 04/27/18 18:59 06:59 Intake Total 1042.5 ml 857.5 ml Output Total 750 ml 650 ml Balance 292.5 ml 207.5 ml Intake Oral 240 ml IV Total 802.5 ml 857.5 ml Output Urine Total 750 ml 650 ml # Voids 2 Height (Feet): 5 Height (Inches): 9.00 Weight (Pounds): 140 General Appearance: lethargic EENT: normal ENT inspection Neck: normal alignment Cardiovascular: normal peripheral pulses, normal rate, regular rhythm Respiratory/Chest: chest wall non-tender, lungs clear, normal breath sounds Abdomen: normal bowel sounds, non tender, soft Extremities: normal inspection Edema: no edema noted Arm (L), no edema noted Arm (R), no edema noted Leg (L), no edema noted Leg (R), no edema noted Pedal (L), no edema noted Pedal (R), no edema noted Generalized Neurologic: motor weakness Skin: normal pigmentation, warm/dry Leland Joseph DO Apr 27, 2018 08:00
--- NOTE | 2018-04-27 08:09 | General Progress Note ---
Assessment/Plan Problem List: (1) Intractable vomiting ICD Codes: R11.10 - Vomiting, unspecified SNOMED: 698783565, 527373207 Qualifiers: Qualified Codes: R11.2 - Nausea with vomiting, unspecified (2) Hypertension ICD Codes: I10 - Essential (primary) hypertension SNOMED: 62823594 (3) GERD (gastroesophageal reflux disease) ICD Codes: K21.9 - Gastro-esophageal reflux disease without esophagitis SNOMED: 201888929 (4) PVD (peripheral vascular disease) ICD Codes: I73.9 - Peripheral vascular disease, unspecified SNOMED: 064516912 (5) Leukocytosis ICD Codes: D72.829 - Elevated white blood cell count, unspecified SNOMED: 990339600, 567453119 Qualifiers: Qualified Codes: D72.829 - Elevated white blood cell count, unspecified (6) Fecal impaction ICD Codes: K56.41 - Fecal impaction SNOMED: 40220429 (7) Anemia ICD Codes: D64.9 - Anemia, unspecified SNOMED: 469659038 (8) Constipation ICD Codes: K59.00 - Constipation, unspecified SNOMED: 70263288 Assessment/Plan no official CT report!! bowel regimen anemia work up work up of elevated WBC per ID fu KUB GI procedures if needed Subjective ROS Limited/Unobtainable: Yes Allergies: Coded Allergies: RISPERIDONE (Verified Allergy, Intermediate, 04/27/16) Subjective c/o abd pain Objective Last 24 Hour Vital Signs Date Time Temp Pulse Resp B/P (MAP) Pulse Ox O2 Delivery O2 Flow Rate FiO2 04/27/18 00:00 97.1 112 18 107/58 (74) 97 04/26/18 21:00 Nasal Cannula 2.0 04/26/18 20:00 97.4 103 18 96/68 (77) 97 04/26/18 16:00 97.9 96 20 105/63 (77) 97 04/26/18 12:00 98.1 79 20 137/61 (86) 95 04/26/18 11:42 59 16 95 Nasal Cannula 2.0 28 04/26/18 11:42 59 16 95 Nasal Cannula 2.0 28 04/26/18 09:00 137/80 04/26/18 09:00 Nasal Cannula 2.0 Intake and Output 04/26/18 04/27/18 18:59 06:59 Intake Total 1042.5 ml 857.5 ml Output Total 750 ml 650 ml Balance 292.5 ml 207.5 ml Intake Oral 240 ml IV Total 802.5 ml 857.5 ml Output Urine Total 750 ml 650 ml # Voids 2 Height (Feet): 5 Height (Inches): 9.00 Weight (Pounds): 140 General Appearance: alert EENT: normal ENT inspection Neck: supple Cardiovascular: normal rate Respiratory/Chest: decreased breath sounds Abdomen: soft, hypoactive bowel sounds, tender Extremities: non-tender Gonzales Sy MD Apr 27, 2018 08:09
[2018-04-27] MEDS: Fleet's Mineral Oil Enema RECTAL SCH ×2 (08:36→11:51)
[2018-04-27] MEDS ORDERED: D5 1/2NS 1000ml IV ONE (08:44)
[2018-04-27] MEDS ORDERED: Tubing IV Secondary IV ONE (08:44)
[2018-04-27] MEDS ORDERED: NS 275ml ONE (08:44)
[2018-04-27] MEDS: Aspirin Baby 81mg ORAL SCH (09:00)
[2018-04-27] MEDS: ZyPREXA Zydis 5mg tab ORAL SCH ×2 (09:00→18:00)
[2018-04-27] MEDS: Heparin 5000 units/ml inj SUBQ SCH ×2 (09:00→21:01)
[2018-04-27] MEDS: Losartan 50mg tab ORAL SCH (09:00)
[2018-04-27] MEDS: Vitamin B-12 500mcg tab ORAL SCH (09:00)
[2018-04-27] MEDS: Docusate 100mg cap ORAL SCH ×2 (09:00→17:53)
[2018-04-27] MEDS: Vitamin D 400 INTLU TAB ORAL SCH (09:00)
[2018-04-27] MEDS: Memantine 5 MG TAB ORAL SCH ×2 (09:00→18:00)
[2018-04-27] MEDS: Lactulose 10gm/15ml UDC ORAL SCH ×3 (09:00→17:53)
--- NOTE | 2018-04-27 09:45 | Diagnostic Imaging Report ---
EXAM: XR Abdomen, 2 Views CLINICAL HISTORY: ABD PAIN TECHNIQUE: Frontal view of the abdomen/pelvis with upright view of the abdomen. COMPARISON: No relevant prior studies available. FINDINGS: Intraperitoneal space: No evidence of intraperitoneal free air. Gastrointestinal tract: Diffuse gaseous distention of large and small bowel loops, nonspecific. Fecal retention in the right colon, which may suggest constipation. Organs: Contrast filling of the urinary bladder. Bones/joints: Unremarkable. IMPRESSION: 1. Diffuse gaseous distention of large and small bowel loops, nonspecific. This may suggest ileus or partial obstruction. 2. Fecal retention in the right colon, which may suggest constipation.
[2018-04-27] MEDS: D5 1/2NS 1,000 ML IV SCH (11:52)
--- NOTE | 2018-04-27 13:47 | General Surgery Progress Note ---
General Surgery-Progress Note Subjective Additional Comments leukocytosis. mild abdominal discomfort, passing flatus. no bm Objective Last 24 Hour Vital Signs Date Time Temp Pulse Resp B/P (MAP) Pulse Ox O2 Delivery O2 Flow Rate FiO2 04/27/18 09:17 Nasal Cannula 04/27/18 09:17 Nasal Cannula 04/27/18 09:00 Nasal Cannula 2.0 04/27/18 00:00 97.1 112 18 107/58 (74) 97 04/26/18 21:00 Nasal Cannula 2.0 04/26/18 20:00 97.4 103 18 96/68 (77) 97 04/26/18 16:00 97.9 96 20 105/63 (77) 97 I&O Intake and Output 04/26/18 04/27/18 19:00 07:00 Intake Total 1042.5 ml 857.5 ml Output Total 750 ml 650 ml Balance 292.5 ml 207.5 ml Intake Oral 240 ml IV Total 802.5 ml 857.5 ml Output Urine Total 750 ml 650 ml # Voids 2 Drains: none Cardiovascular: RSR Respiratory: clear Abdomen: soft, flat, non-tender, present bowel sounds Extremities: no tenderness, no cyanosis Plan Problems: (1) Abdominal pain Assessment & Plan: abdominal pain. nausea. coffee ground emesis. leukocytosis. labs noted exam benign. abd soft, nt/nd, bs+ CT without obstruction as per report - Pending OFFICIAL read fecal impaction -no acute surgical intervention planned -okay for diet -bowel regimen -GI eval for coffee ground emesis. thank you will follow with recbong. Ilia Rossi Apr 27, 2018 13:47
[2018-04-27 16:00] VITALS: BP 111/64
--- NOTE | 2018-04-27 18:48 | Cardiology Progress Note ---
Assessment/Plan Status: stable, progressing Assessment/Plan Assessment/Plan Status: stable Assessment/Plan Assessment: GERD, DM2, HTN, COPD Emesis tachycardia Chest pain, atypical angina Plan: Empiric antibiotics IV fluids Zofran Troponin/EKG Swallow study Follow up CT scan Continue home medications Subjective Cardiovascular: Reports: no symptoms Respiratory: Reports: no symptoms Gastrointestinal/Abdominal: Reports: no symptoms Genitourinary: Reports: no symptoms Subjective [employer] leukocytosis. mild abdominal discomfort, passing flatus. no bm, awake, no complaint of pain but irritable Objective Last 24 Hour Vital Signs Date Time Temp Pulse Resp B/P (MAP) Pulse Ox O2 Delivery O2 Flow Rate FiO2 04/27/18 16:00 97.1 109 18 111/64 (80) 95 04/27/18 14:15 62 16 95 Nasal Cannula 2.0 28 04/27/18 14:15 65 16 95 Nasal Cannula 2.0 28 04/27/18 09:00 Nasal Cannula 2.0 04/27/18 00:00 97.1 112 18 107/58 (74) 97 04/26/18 21:00 Nasal Cannula 2.0 04/26/18 20:00 97.4 103 18 96/68 (77) 97 General Appearance: no apparent distress, alert EENT: PERRL/EOMI, normal ENT inspection, TMs normal Neck: non-tender, normal alignment, supple, normal inspection, no JVD Rhythm: NSR Cardiovascular: normal peripheral pulses, normal rate Respiratory/Chest: chest wall non-tender, lungs clear, normal breath sounds Abdomen: normal bowel sounds, non tender, soft Extremities: normal range of motion, non-tender Neurologic: managed care analyst II-XII grossly normal, no motor/sensory deficits Intake and Output 04/26/18 04/27/18 19:00 07:00 Intake Total 1042.5 ml 857.5 ml Output Total 750 ml 650 ml Balance 292.5 ml 207.5 ml Intake Oral 240 ml IV Total 802.5 ml 857.5 ml Output Urine Total 750 ml 650 ml # Voids 2 Microbiology Date/Time Source Procedure Growth Status 04/25/18 22:10 Blood Blood Culture - Preliminary NO GROWTH AFTER 24 HOURS Resulted 04/25/18 22:05 Blood Blood Culture - Preliminary NO GROWTH AFTER 24 HOURS Resulted Suraj Valdivia MD Apr 27, 2018 18:48
[2018-04-27] MEDS: Sennosides 8.6mg tab ORAL SCH (21:05)
[2018-04-27] MEDS: Atorvastatin 80mg tab ORAL SCH (21:06)
[2018-04-27] MEDS: Doxazosin 4mg tab ORAL SCH (21:06)
[2018-04-27] MEDS: Miralax 17gm pkt ORAL SCH (21:08)
--- NOTE | 2018-04-27 23:45 | Consultation ---
DATE OF CONSULTATION: SUBJECTIVE: The patient is an 83-year-old male patient with vomiting. He is very confused, disorganized. He has has no logical plan for his own self-care. He is still very agitated and is in pain, that is the main reason why he is agitated, but he still has poor insight and has combativeness and very verbally abusive to staff. He has no logical plan for his own self-care. MENTAL STATUS EXAMINATION: An 83-year-old male. Appearance is disheveled. Attitude, irritable and agitated. Affect guarded and restricted. Intellect poor. Mood depressed and anxious. Motor activity, psychomotor agitation. Attention span is poor. Orientation x2. Speech is pressured. Thought process, disorganized and logical. Thought content, auditory hallucinations and paranoid delusions. Insight and judgment is poor. DIAGNOSIS: Paranoid schizophrenia with acute exacerbation. PLAN: Continue treatment with medications to stabilize his mood. Provided with 20 minutes of cognitive behavioral therapy. I encouraged him to interact appropriately with staff. cognitive behavioral therapy session to identify his automatic negative thoughts and help him convert the negative thought process to more positive thinking to reduce depression, anxiety, impulsivity, and also help him with a more adaptive behavioral pattern. Chart reviewed and discussed with staff. Seen and assessed in his room. Darrick Robert M.D. DR: Korey JOB#: [id number] CC:
[2018-04-28] VITALS (8 sets, daily range): BP systolic 95–156; BP diastolic 42–80
[2018-04-28] MEDS: D5 1/2NS 1,000 ML IV SCH ×2 (04:06→21:18)
[2018-04-28] MEDS: Piperacillin/Tazobactam 3.375 GM in D5W 110 ML IVPB SCH ×3 (05:37→20:59)
--- NOTE | 2018-04-28 08:00 | Progress Note ---
DATE: 04/28/2018 SUBJECTIVE: This patient is 83 years old. He has nausea, vomiting, and abdominal pain. He is confused and disorganized. He has got some mood lability activity. MENTAL STATUS EXAMINATION: This is an 83-year-old male. Appearance is disheveled. Attitude, irritable and agitated. Affect, guarded and restricted. Intellect poor. Mood, depressed and anxious. Motor activity, psychomotor agitation. Attention span is poor. Orientation x2. Speech is pressured. Thought process is disorganized and illogical. Insight and judgment is poor. He is very irritable, agitated, and has very poor insight. DIAGNOSIS: Major depression with psychotic features, rule out dementia with psychosis. PLAN: Plan is to continue titrating up his medications to stabilize his mood. Provided him with 20 minutes of cognitive behavioral therapy to help him identify his automatic negative thoughts and help convert those negative thoughts to more positive thoughts to reduce depression, anxiety, and suicidality. Chart reviewed. Discussed with staff. Seen and assessed in his room. Darrick Robert M.D. DR: RAMOS JOB#: [id number] CC:
--- NOTE | 2018-04-28 08:16 | General Progress Note ---
Assessment/Plan Problem List: (1) Abdominal pain ICD Codes: R10.9 - Unspecified abdominal pain SNOMED: 56563688, 753372267 Qualifiers: Qualified Codes: R10.13 - Epigastric pain (2) Emphysema of lung ICD Codes: J43.9 - Emphysema, unspecified SNOMED: 64561734 (3) Constipation ICD Codes: K59.00 - Constipation, unspecified SNOMED: 43104905 (4) Anemia ICD Codes: D64.9 - Anemia, unspecified SNOMED: 550049147 (5) Fecal impaction ICD Codes: K56.41 - Fecal impaction SNOMED: 58760417 (6) Leukocytosis ICD Codes: D72.829 - Elevated white blood cell count, unspecified SNOMED: 662093437, 716688234 Qualifiers: Qualified Codes: D72.829 - Elevated white blood cell count, unspecified (7) PVD (peripheral vascular disease) ICD Codes: I73.9 - Peripheral vascular disease, unspecified SNOMED: 369396654 (8) GERD (gastroesophageal reflux disease) ICD Codes: K21.9 - Gastro-esophageal reflux disease without esophagitis SNOMED: 654432951 (9) Hypertension ICD Codes: I10 - Essential (primary) hypertension SNOMED: 64857494 (10) Severe protein-calorie malnutrition ICD Codes: E43 - Unspecified severe protein-calorie malnutrition SNOMED: 392114607 (11) CKD (chronic kidney disease) ICD Codes: N18.9 - Chronic kidney disease, unspecified SNOMED: 427314574 (12) Intractable vomiting ICD Codes: R11.10 - Vomiting, unspecified SNOMED: 326261584, 953585324 Qualifiers: Qualified Codes: R11.2 - Nausea with vomiting, unspecified Status: unchanged Assessment/Plan pt diet eval abx gi f/u cbc bmp am promise ltach eval Subjective Constitutional: Reports: weakness Allergies: Coded Allergies: RISPERIDONE (Verified Allergy, Intermediate, 04/27/16) All Systems: reviewed and negative except above Subjective sleepy calm Objective Last 24 Hour Vital Signs Date Time Temp Pulse Resp B/P (MAP) Pulse Ox O2 Delivery O2 Flow Rate FiO2 04/28/18 08:05 96 Nasal Cannula 2.0 28 04/28/18 08:05 Nasal Cannula 2.0 28 04/28/18 04:00 97.9 112 18 108/61 (77) 98 04/27/18 21:00 Nasal Cannula 2.0 04/27/18 20:31 93 Nasal Cannula 2.0 28 04/27/18 20:31 98 20 Nasal Cannula 2.0 28 04/27/18 20:31 Nasal Cannula 2.0 28 04/27/18 16:00 97.1 109 18 111/64 (80) 95 04/27/18 14:15 62 16 95 Nasal Cannula 2.0 28 04/27/18 14:15 65 16 95 Nasal Cannula 2.0 28 04/27/18 09:00 Nasal Cannula 2.0 Intake and Output 04/27/18 04/28/18 19:00 07:00 Intake Total 775.0 ml 917.5 ml Output Total 600 ml Balance 175.0 ml 917.5 ml Intake Oral 240 ml 120 ml IV Total 535.0 ml 797.5 ml Output Urine Total 600 ml # Voids 2 2 # Bowel Movements 1 Laboratory Tests 04/28/18 02:00: Stool Occult Blood [Pending] Height (Feet): 5 Height (Inches): 9.00 Weight (Pounds): 140 General Appearance: lethargic EENT: normal ENT inspection Neck: normal alignment Cardiovascular: normal peripheral pulses, normal rate, regular rhythm Respiratory/Chest: chest wall non-tender, lungs clear, normal breath sounds Abdomen: normal bowel sounds, non tender, soft Extremities: normal inspection Edema: no edema noted Arm (L), no edema noted Arm (R), no edema noted Leg (L), no edema noted Leg (R), no edema noted Pedal (L), no edema noted Pedal (R), no edema noted Generalized Neurologic: motor weakness Skin: normal pigmentation, warm/dry Leland Joseph DO Apr 28, 2018 08:16
[2018-04-28] MEDS: Vitamin B-12 500mcg tab ORAL SCH (09:00)
[2018-04-28] MEDS: Lactulose 10gm/15ml UDC ORAL SCH ×3 (09:00→18:00)
[2018-04-28] MEDS: Vitamin D 400 INTLU TAB ORAL SCH (09:00)
[2018-04-28] MEDS: Docusate 100mg cap ORAL SCH ×2 (09:00→18:09)
[2018-04-28] MEDS: Aspirin Baby 81mg ORAL SCH (09:00)
[2018-04-28] MEDS: Heparin 5000 units/ml inj SUBQ SCH ×2 (09:00→21:00)
[2018-04-28] MEDS: ZyPREXA Zydis 5mg tab ORAL SCH ×2 (09:00→18:09)
[2018-04-28] MEDS: Memantine 5 MG TAB ORAL SCH ×2 (09:00→18:09)
[2018-04-28] MEDS: Losartan 50mg tab ORAL SCH (09:00)
[2018-04-28 09:09] LABS: HEMATOCRIT 23.6 % (42.0-52.0); HEMOGLOBIN 7.7 G/DL (14.2-18.0); MEAN CORPUSCULAR VOLUME 88 FL (80-99); PLATELET COUNT 173 K/UL (150-450); RED BLOOD COUNT 2.69 M/UL (4.70-6.10); RED CELL DISTRIBUTION WIDTH 15.9 % (11.6-14.8); WHITE BLOOD COUNT 11.7 K/UL (4.8-10.8)
[2018-04-28 09:25] LABS: ALANINE AMINOTRANSFERASE 12 U/L (12-78); ALBUMIN 1.8 G/DL (3.4-5.0); ALBUMIN/GLOBULIN RATIO 0.4 (1.0-2.7); ALKALINE PHOSPHATASE 83 U/L (46-116); ANION GAP 10 mmol/L (5-15); ASPARTATE AMINO TRANSFERASE 7 U/L (15-37); BILIRUBIN,TOTAL 0.5 MG/DL (0.2-1.0); BLOOD UREA NITROGEN 10 mg/dL (7-18); CALCIUM 8.7 MG/DL (8.5-10.1); CARBON DIOXIDE 25 MMOL/L (21-32); CHLORIDE 99 MMOL/L (98-107); CREATININE 1.2 MG/DL (0.55-1.30); SODIUM 134 MMOL/L (136-145)
--- NOTE | 2018-04-28 10:07 | Infectious Diseases Prog Note ---
Assessment/Plan Assessment/Plan Assessment/Plan Abx: Zosyn x 1 04/25 Assessment: Sepsis, improving- likely from intrabdominal source- r/o bacteremia u/a neg Bcx NTD CXR p Coffee ground emesis Abdominal pain- ileus vs SBP -KUB: 1Diffuse gaseous distention of large and small bowel loops, nonspecific. This may suggest ileus or partial obstruction. Fecal retention in the right colon, which may suggest constipation. -CT ab/p p Afebrile Leukocytosis, improving Recent PNA, s/p Rx -04/17 sp cx MRSA, PsA (franklin S) -influenz sc neg GERD DM2 HTN COPD SNF resident anemia BPH PVD cachectic DNR Plan: -Continue empiric Zosyn #3 pending cultures and clinical improvement -04/22 SP PO Levaquin and Linezolid #7 -04/16 SP Augmentin #1 -f/u CT abd./p, CXR -f/u cx -Monitor CBC/CMP, temperatures -GI, Sx fu -aspiration precautions Thank you for this consultation. Will continue to follow along with you. Discussed with RN. Subjective Allergies: Coded Allergies: RISPERIDONE (Verified Allergy, Intermediate, 04/27/16) Subjective Afebrile leuokcytosis improving Bcx NTD CXR and CT abd p Objective Vital Signs Last 24 Hour Vital Signs Date Time Temp Pulse Resp B/P (MAP) Pulse Ox O2 Delivery O2 Flow Rate FiO2 04/28/18 08:05 96 Nasal Cannula 2.0 28 04/28/18 08:05 Nasal Cannula 2.0 28 04/28/18 04:00 97.9 112 18 108/61 (77) 98 04/27/18 21:00 Nasal Cannula 2.0 04/27/18 20:31 93 Nasal Cannula 2.0 28 04/27/18 20:31 98 20 Nasal Cannula 2.0 28 04/27/18 20:31 Nasal Cannula 2.0 28 04/27/18 16:00 97.1 109 18 111/64 (80) 95 04/27/18 14:15 62 16 95 Nasal Cannula 2.0 28 04/27/18 14:15 65 16 95 Nasal Cannula 2.0 28 Height (Feet): 5 Height (Inches): 9.00 Weight (Pounds): 140 Objective Drains: none Cardiovascular: RSR Respiratory: clear Abdomen: soft, flat, non-tender, present bowel sounds Extremities: no tenderness, no cyanosis Microbiology Date/Time Source Procedure Growth Status 04/25/18 22:10 Blood Blood Culture - Preliminary NO GROWTH AFTER 48 HOURS Resulted 04/25/18 22:05 Blood Blood Culture - Preliminary NO GROWTH AFTER 48 HOURS Resulted 04/25/18 22:50 Nasal Nares MRSA Culture - Final NO METHICILLIN RESISTANT STAPH AUREUS... Complete 04/25/18 22:50 Rectum - Final NO CARBAPENEM-RESISTANT ENTEROBACTERI... Complete 04/25/18 22:50 Rectum VRE Culture - Final Enterococcus Faecalis - Vre Complete Laboratory Tests Test 04/28/18 02:00 04/28/18 04:00 04/28/18 08:35 Stool Occult Blood Pending Iron Level Pending Unsaturated Iron Binding Pending White Blood Count 11.7 K/UL (4.8-10.8) H Red Blood Count 2.69 M/UL (4.70-6.10) L Hemoglobin 7.7 G/DL (14.2-18.0) L Hematocrit 23.6 % (42.0-52.0) L Mean Corpuscular Volume 88 FL (80-99) Mean Corpuscular Hemoglobin 28.6 PG (27.0-31.0) Mean Corpuscular Hemoglobin Concent 32.7 G/DL (32.0-36.0) Red Cell Distribution Width 15.9 % (11.6-14.8) H Platelet Count 173 K/UL (150-450) Mean Platelet Volume 7.0 FL (6.5-10.1) Neutrophils (%) (Auto) % (45.0-75.0) Lymphocytes (%) (Auto) % (20.0-45.0) Monocytes (%) (Auto) % (1.0-10.0) Eosinophils (%) (Auto) % (0.0-3.0) Basophils (%) (Auto) % (0.0-2.0) Differential Total Cells Counted 100 Neutrophils % (Manual) 83 % (45-75) H Lymphocytes % (Manual) 11 % (20-45) L Monocytes % (Manual) 5 % (1-10) Eosinophils % (Manual) 1 % (0-3) Basophils % (Manual) 0 % (0-2) Band Neutrophils 0 % (0-8) Platelet Estimate Adequate Platelet Morphology Normal Hypochromasia 1+ Anisocytosis 1+ Sodium Level 134 MMOL/L (136-145) L Potassium Level 4.0 MMOL/L (3.5-5.1) Chloride Level 99 MMOL/L (98-107) Carbon Dioxide Level 25 MMOL/L (21-32) Anion Gap 10 mmol/L (5-15) Blood Urea Nitrogen 10 mg/dL (7-18) Creatinine 1.2 MG/DL (0.55-1.30) Estimat Glomerular Filtration Rate mL/min (>60) Glucose Level 124 MG/DL (74-106) H Calcium Level 8.7 MG/DL (8.5-10.1) Total Bilirubin 0.5 MG/DL (0.2-1.0) Aspartate Amino Transf (AST/SGOT) 7 U/L (15-37) L Alanine Aminotransferase (ALT/SGPT) 12 U/L (12-78) Alkaline Phosphatase 83 U/L (46-116) Total Protein 6.0 G/DL (6.4-8.2) L Albumin 1.8 G/DL (3.4-5.0) L Globulin 4.2 g/dL Albumin/Globulin Ratio 0.4 (1.0-2.7) L Vitamin B12 Level Pending Folate Pending Current Medications Medications (Trade) Dose Ordered Sig/Amish Route PRN Reason Start Time Stop Time Status Last Admin Dose Admin Aspirin (ASA) 81 mg DAILY ORAL 04/26/18 09:00 05/26/18 08:59 Atorvastatin Calcium (Lipitor) 80 mg BEDTIME ORAL 04/26/18 21:00 05/26/18 20:59 04/27/18 21:06 Bisacodyl (Dulcolax) 10 mg DAILYPRN PRN RECTAL Constipation 04/26/18 02:30 05/26/18 02:29 04/27/18 21:06 Calcium Carbonate (Tums) 250 mg Q4H PRN ORAL Nausea & Vomiting 04/26/18 06:30 05/26/18 02:29 04/26/18 21:12 Cetirizine HCl (ZyrTEC) 10 mg DAILY ORAL 04/26/18 09:00 05/26/18 08:59 Cyanocobalamin (Vitamin B-12) 500 mcg DAILY ORAL 04/26/18 09:00 05/26/18 08:59 Dextrose/Sodium Chloride 1,000 ml @ 60 mls/hr [id number] IV 04/26/18 02:15 05/26/18 02:14 04/28/18 04:06 Docusate Sodium (Colace) 100 mg TWICE A DAY ORAL 04/26/18 09:00 05/26/18 08:59 04/27/18 17:53 Doxazosin Mesylate (Cardura) 4 mg BEDTIME ORAL 04/26/18 21:00 05/26/18 20:59 04/27/18 21:06 Ferrous Sulfate (Feosol) 325 mg THREE TIMES A DAY ORAL 04/26/18 09:00 05/26/18 08:59 Heparin Sodium (Porcine) (Heparin 5000 units/ml) 5,000 units EVERY 12 HOURS SUBQ 04/26/18 09:00 05/26/18 08:59 04/27/18 21:01 Iopamidol (Isovue-300 100ml) 100 ml NOW PRN INJ Radiology Procedure 04/25/18 19:30 Lactulose (Cephulac) 20 gm THREE TIMES A DAY ORAL 04/27/18 09:00 05/26/18 08:59 04/27/18 17:53 Lorazepam (Ativan) 1 mg Q12H PRN ORAL For Anxiety 04/26/18 02:30 05/03/18 02:29 Losartan Potassium (Cozaar) 50 mg DAILY ORAL 04/26/18 09:00 05/26/18 08:59 Magnesium Hydroxide (Mom) 30 ml HSPRN PRN ORAL Constipation 04/26/18 02:30 05/26/18 02:29 Meclizine HCl (Antivert) 25 mg Q8H PRN ORAL for dizziness 04/26/18 02:30 05/26/18 02:29 Memantine (Namenda) 5 mg BID ORAL 04/26/18 18:00 05/26/18 17:59 Morphine Sulfate (Morphine Sulfate) 2 mg Q4H PRN IVP For Pain 04/26/18 02:15 05/03/18 02:14 04/26/18 16:17 Olanzapine (ZyPREXA Zydis) 5 mg BID ORAL 04/26/18 18:00 05/26/18 17:59 Ondansetron HCl (Zofran) 4 mg Q4H PRN IVP Nausea & Vomiting 04/26/18 02:15 05/26/18 02:14 04/27/18 08:36 Pantoprazole (Protonix) 40 mg ACBREAKFAST ORAL 04/26/18 06:30 05/26/18 06:29 04/28/18 05:37 Piperacillin Sod/ Tazobactam Sod 3.375 gm/Dextrose 110 ml @ 27.5 mls/hr EVERY 8 HOURS IVPB 04/26/18 11:30 05/01/18 11:29 04/28/18 05:37 Polyethylene Glycol (Miralax) 17 gm BEDTIME ORAL 04/26/18 21:00 05/26/18 20:59 04/27/18 21:08 Sennosides (Senokot) 17.2 mg BEDTIME ORAL 04/26/18 21:00 05/26/18 20:59 04/27/18 21:05 Sodium Phosphate (Fleet's Sodium Phosl Enema) 133 ml QOD PRN RECTAL Constipation 04/26/18 02:30 05/26/18 02:29 04/28/18 02:21 Tiotropium Zenda (Spiriva Inhaler) 1 puff DAILY INH 04/26/18 09:00 05/26/18 08:59 04/27/18 14:15 Vitamin D (Vitamin D) 400 intlu DAILY ORAL 04/26/18 09:00 05/26/18 08:59 Paula Light M.D. Apr 28, 2018 10:07
[2018-04-28 10:10] LABS: IRON 18 ug/dL (50-175)
--- NOTE | 2018-04-28 10:11 | Pre-Procedure Note/Attestation ---
Pre-Procedure Note/Attestation Complete Prior to Procedure Planned Procedure: not applicable Procedure Narrative: egd Indications for Procedure Pre-Operative Diagnosis: gib Attestation I attest that I discussed the nature of the procedure; its benefits; risks and complications; and alternatives (and the risks and benefits of such alternatives ), prior to the procedure, with the patient (or the patient's legal guest service representative). I attest that, if there was a reasonable possibility of needing a blood transfusion, the patient (or the patient's legal guest service representative) was given the [facility] standardized written summary, pursuant to the Darwin Erin Blood Safety Act ([place] Health and Safety Code # 1645, as amended). I attest that I re-evaluated the patient just prior to the surgery and that there has been no change in the patient's H&P, except as documented below: Gonzales Sy MD Apr 28, 2018 10:11
--- NOTE | 2018-04-28 10:13 | General Progress Note ---
Assessment/Plan Problem List: (1) Intractable vomiting ICD Codes: R11.10 - Vomiting, unspecified SNOMED: 431527123, 016095384 Qualifiers: Qualified Codes: R11.2 - Nausea with vomiting, unspecified (2) Hypertension ICD Codes: I10 - Essential (primary) hypertension SNOMED: 64165680 (3) GERD (gastroesophageal reflux disease) ICD Codes: K21.9 - Gastro-esophageal reflux disease without esophagitis SNOMED: 497898142 (4) PVD (peripheral vascular disease) ICD Codes: I73.9 - Peripheral vascular disease, unspecified SNOMED: 740065157 (5) Leukocytosis ICD Codes: D72.829 - Elevated white blood cell count, unspecified SNOMED: 424762184, 279905808 Qualifiers: Qualified Codes: D72.829 - Elevated white blood cell count, unspecified (6) Fecal impaction ICD Codes: K56.41 - Fecal impaction SNOMED: 72042047 (7) Anemia ICD Codes: D64.9 - Anemia, unspecified SNOMED: 635551069 (8) Constipation ICD Codes: K59.00 - Constipation, unspecified SNOMED: 48541779 Assessment/Plan CT reviewed bowel regimen anemia work up work up of elevated WBC per ID plan EGD for today given sig drop in H&H Subjective ROS Limited/Unobtainable: Yes Allergies: Coded Allergies: RISPERIDONE (Verified Allergy, Intermediate, 04/27/16) Subjective c/o abd pain Objective Last 24 Hour Vital Signs Date Time Temp Pulse Resp B/P (MAP) Pulse Ox O2 Delivery O2 Flow Rate FiO2 04/28/18 08:05 96 Nasal Cannula 2.0 28 04/28/18 08:05 Nasal Cannula 2.0 28 04/28/18 04:00 97.9 112 18 108/61 (77) 98 04/27/18 21:00 Nasal Cannula 2.0 04/27/18 20:31 93 Nasal Cannula 2.0 28 04/27/18 20:31 98 20 Nasal Cannula 2.0 28 04/27/18 20:31 Nasal Cannula 2.0 28 04/27/18 16:00 97.1 109 18 111/64 (80) 95 04/27/18 14:15 62 16 95 Nasal Cannula 2.0 28 04/27/18 14:15 65 16 95 Nasal Cannula 2.0 28 Intake and Output 04/27/18 04/28/18 18:59 06:59 Intake Total 775.0 ml 917.5 ml Output Total 600 ml Balance 175.0 ml 917.5 ml Intake Oral 240 ml 120 ml IV Total 535.0 ml 797.5 ml Output Urine Total 600 ml # Voids 2 2 # Bowel Movements 1 Laboratory Tests 04/28/18 02:00: Stool Occult Blood [Pending] 04/28/18 04:00: Iron Level [Pending], Unsaturated Iron Binding [Pending] 04/28/18 08:35: White Blood Count 11.7H, Red Blood Count 2.69L, Hemoglobin 7.7L, Hematocrit 23.6L, Mean Corpuscular Volume 88, Mean Corpuscular Hemoglobin 28.6, Mean Corpuscular Hemoglobin Concent 32.7, Red Cell Distribution Width 15.9H, Platelet Count 173, Mean Platelet Volume 7.0, Neutrophils (%) (Auto) , Lymphocytes (%) (Auto) , Monocytes (%) (Auto) , Eosinophils (%) (Auto) , Basophils (%) (Auto) , Differential Total Cells Counted 100, Neutrophils % ( Manual) 83H, Lymphocytes % (Manual) 11L, Monocytes % (Manual) 5, Eosinophils % ( Manual) 1, Basophils % (Manual) 0, Band Neutrophils 0, Platelet Estimate Adequate, Platelet Morphology Normal, Hypochromasia 1+, Anisocytosis 1+, Sodium Level 134L, Potassium Level 4.0, Chloride Level 99, Carbon Dioxide Level 25, Anion Gap 10, Blood Urea Nitrogen 10, Creatinine 1.2, Estimat Glomerular Filtration Rate , Glucose Level 124H, Calcium Level 8.7, Total Bilirubin 0.5, Aspartate Amino Transf (AST/SGOT) 7L, Alanine Aminotransferase (ALT/SGPT) 12, Alkaline Phosphatase 83, Total Protein 6.0L, Albumin 1.8L, Globulin 4.2, Albumin /Globulin Ratio 0.4L, Vitamin B12 Level 1025H, Folate 11.5 Height (Feet): 5 Height (Inches): 9.00 Weight (Pounds): 140 General Appearance: alert EENT: normal ENT inspection Neck: supple Cardiovascular: normal rate Respiratory/Chest: decreased breath sounds Abdomen: normal bowel sounds, non tender, soft Extremities: non-tender Gonzales Sy MD Apr 28, 2018 10:13
[2018-04-28 10:40] LABS: % IRON SATURATION 5 % (15-50); TOTAL IRON BINDING CAPACITY 364 ug/dL (250-450)
--- NOTE | 2018-04-28 10:40 | General Progress Note ---
Assessment/Plan Problem List: (1) Intractable vomiting ICD Codes: R11.10 - Vomiting, unspecified SNOMED: 168730451, 987661272 Qualifiers: Qualified Codes: R11.2 - Nausea with vomiting, unspecified (2) Hypertension ICD Codes: I10 - Essential (primary) hypertension SNOMED: 58917962 (3) GERD (gastroesophageal reflux disease) ICD Codes: K21.9 - Gastro-esophageal reflux disease without esophagitis SNOMED: 501076902 (4) PVD (peripheral vascular disease) ICD Codes: I73.9 - Peripheral vascular disease, unspecified SNOMED: 837753620 (5) Leukocytosis ICD Codes: D72.829 - Elevated white blood cell count, unspecified SNOMED: 348444927, 780351986 Qualifiers: Qualified Codes: D72.829 - Elevated white blood cell count, unspecified (6) Fecal impaction ICD Codes: K56.41 - Fecal impaction SNOMED: 19977781 (7) Anemia ICD Codes: D64.9 - Anemia, unspecified SNOMED: 083066130 (8) Constipation ICD Codes: K59.00 - Constipation, unspecified SNOMED: 38491971 Assessment/Plan CT reviewed bowel regimen anemia work up work up of elevated WBC per ID plan EGD for today given sig drop in H&H Subjective ROS Limited/Unobtainable: Yes Allergies: Coded Allergies: RISPERIDONE (Verified Allergy, Intermediate, 04/27/16) Subjective c/o abd pain Objective Last 24 Hour Vital Signs Date Time Temp Pulse Resp B/P (MAP) Pulse Ox O2 Delivery O2 Flow Rate FiO2 04/28/18 09:00 Nasal Cannula 2.0 04/28/18 08:05 96 Nasal Cannula 2.0 28 04/28/18 08:05 Nasal Cannula 2.0 28 04/28/18 08:00 98.0 66 18 110/61 (77) 98 04/28/18 04:00 97.9 112 18 108/61 (77) 98 04/27/18 21:00 Nasal Cannula 2.0 04/27/18 20:31 93 Nasal Cannula 2.0 28 04/27/18 20:31 98 20 Nasal Cannula 2.0 28 04/27/18 20:31 Nasal Cannula 2.0 28 04/27/18 16:00 97.1 109 18 111/64 (80) 95 04/27/18 14:15 62 16 95 Nasal Cannula 2.0 28 04/27/18 14:15 65 16 95 Nasal Cannula 2.0 28 Intake and Output 04/27/18 04/28/18 18:59 06:59 Intake Total 775.0 ml 917.5 ml Output Total 600 ml Balance 175.0 ml 917.5 ml Intake Oral 240 ml 120 ml IV Total 535.0 ml 797.5 ml Output Urine Total 600 ml # Voids 2 2 # Bowel Movements 1 Laboratory Tests 04/28/18 02:00: Stool Occult Blood [Pending] 04/28/18 04:00: Iron Level [Pending], Unsaturated Iron Binding [Pending] 04/28/18 08:35: White Blood Count 11.7H, Red Blood Count 2.69L, Hemoglobin 7.7L, Hematocrit 23.6L, Mean Corpuscular Volume 88, Mean Corpuscular Hemoglobin 28.6, Mean Corpuscular Hemoglobin Concent 32.7, Red Cell Distribution Width 15.9H, Platelet Count 173, Mean Platelet Volume 7.0, Neutrophils (%) (Auto) , Lymphocytes (%) (Auto) , Monocytes (%) (Auto) , Eosinophils (%) (Auto) , Basophils (%) (Auto) , Differential Total Cells Counted 100, Neutrophils % ( Manual) 83H, Lymphocytes % (Manual) 11L, Monocytes % (Manual) 5, Eosinophils % ( Manual) 1, Basophils % (Manual) 0, Band Neutrophils 0, Platelet Estimate Adequate, Platelet Morphology Normal, Hypochromasia 1+, Anisocytosis 1+, Sodium Level 134L, Potassium Level 4.0, Chloride Level 99, Carbon Dioxide Level 25, Anion Gap 10, Blood Urea Nitrogen 10, Creatinine 1.2, Estimat Glomerular Filtration Rate , Glucose Level 124H, Calcium Level 8.7, Total Bilirubin 0.5, Aspartate Amino Transf (AST/SGOT) 7L, Alanine Aminotransferase (ALT/SGPT) 12, Alkaline Phosphatase 83, Total Protein 6.0L, Albumin 1.8L, Globulin 4.2, Albumin /Globulin Ratio 0.4L, Vitamin B12 Level 1025H, Folate 11.5 Height (Feet): 5 Height (Inches): 7.00 Weight (Pounds): 139 General Appearance: alert EENT: normal ENT inspection Neck: supple Cardiovascular: normal rate Respiratory/Chest: decreased breath sounds Abdomen: soft, decreased bowel sounds, tender Extremities: non-tender Gonzales Sy MD Apr 28, 2018 10:40
[2018-04-28] MEDS ORDERED: LORazepam Inj 2mg/ml 1ml IV PRN (10:45)
[2018-04-28] MEDS ORDERED: Hydromorphone 0.5mg/0.5ml inj IVP PRN (10:45)
[2018-04-28] MEDS ORDERED: Midazolam 2mg/2ml Inj IVP PRN (10:45)
[2018-04-28] MEDS ORDERED: Atropine Sulfate 0.4mg/ml inj IVP PRN (10:45)
[2018-04-28] MEDS ORDERED: HYDROcodone/Acetamin 7.5/325 tab ORAL PRN (10:45)
[2018-04-28] MEDS ORDERED: LR 1000ml 1,000 ML IVLG SCH (10:45)
[2018-04-28] MEDS ORDERED: fentaNYL 100 mcg/2 mL IV PRN (10:45)
[2018-04-28] MEDS ORDERED: Meperidine 50mg/ml Inj(FOR RIGORS ONLY) IVP PRN (10:45)
[2018-04-28] MEDS ORDERED: oxyCODONE HCL/Acetaminophen 5/325mg ORAL PRN (10:45)
[2018-04-28] MEDS ORDERED: Norco 5mg/325mg tab ORAL PRN (10:45)
[2018-04-28] MEDS ORDERED: DiphenhydrAMINE 50mg/ml Inj IVP PRN (10:45)
[2018-04-28] MEDS ORDERED: NS 500ML IVPB ONE (10:50)
--- NOTE | 2018-04-28 10:50 | Anethesia Preoperative Eval ---
Anesthesia Pre-op PMH/ROS General Date of Evaluation: Apr 28, 2018 Time of Evaluation: 10:49 Anesthesiologist: Hemalatha ASA Score: ASA 3 Mallampati Score Class I : Soft palate, uvula, fauces, pillars visible Class II: Soft palate, uvula, fauces visible Class III: Soft palate, base of uvula visible Class IV: Only hard plate visible Mallampati Classification: Class II Surgeon: Yossi Diagnosis: Abd Pain Surgical Procedure: EGD Anesthesia History: none Family History: no anesthesia problems Allergies: Coded Allergies: RISPERIDONE (Verified Allergy, Intermediate, 04/27/16) Medications: see eMAR Patient NPO?: Yes Past Medical History Cardiovascular: Reports: HTN, other - PVD Pulmonary: Reports: COPD Gastrointestinal/Genitourinary: Reports: GERD, CRI - Dialysis Endocrine: Reports: DM Hematology/Immune: Reports: anemia Anesthesia Pre-op Phys. Exam Physician Exam Last Vital Signs Date Time Temp Pulse Resp B/P (MAP) Pulse Ox O2 Delivery O2 Flow Rate FiO2 04/28/18 09:00 Nasal Cannula 2.0 04/28/18 08:05 96 28 04/28/18 08:00 98.0 66 18 110/61 (77) Constitutional: NAD Neurologic: CN 2-12 intact Cardiovascular: RRR Gastrointestinal: S/NT/ND Airway Exam Mallampati Score: Class II MO: full ROM: limited Teeth: missing Anesthesia Pre-op A/P Labs Hematology Test 04/28/18 08:35 White Blood Count 11.7 K/UL (4.8-10.8) H Red Blood Count 2.69 M/UL (4.70-6.10) L Hemoglobin 7.7 G/DL (14.2-18.0) L Hematocrit 23.6 % (42.0-52.0) L Mean Corpuscular Volume 88 FL (80-99) Mean Corpuscular Hemoglobin 28.6 PG (27.0-31.0) Mean Corpuscular Hemoglobin Concent 32.7 G/DL (32.0-36.0) Red Cell Distribution Width 15.9 % (11.6-14.8) H Platelet Count 173 K/UL (150-450) Mean Platelet Volume 7.0 FL (6.5-10.1) Neutrophils (%) (Auto) % (45.0-75.0) Lymphocytes (%) (Auto) % (20.0-45.0) Monocytes (%) (Auto) % (1.0-10.0) Eosinophils (%) (Auto) % (0.0-3.0) Basophils (%) (Auto) % (0.0-2.0) Differential Total Cells Counted 100 Neutrophils % (Manual) 83 % (45-75) H Lymphocytes % (Manual) 11 % (20-45) L Monocytes % (Manual) 5 % (1-10) Eosinophils % (Manual) 1 % (0-3) Basophils % (Manual) 0 % (0-2) Band Neutrophils 0 % (0-8) Platelet Estimate Adequate Platelet Morphology Normal Hypochromasia 1+ Anisocytosis 1+ Chemistry Test 04/28/18 08:35 Sodium Level 134 MMOL/L (136-145) L Potassium Level 4.0 MMOL/L (3.5-5.1) Chloride Level 99 MMOL/L (98-107) Carbon Dioxide Level 25 MMOL/L (21-32) Anion Gap 10 mmol/L (5-15) Blood Urea Nitrogen 10 mg/dL (7-18) Creatinine 1.2 MG/DL (0.55-1.30) Estimat Glomerular Filtration Rate mL/min (>60) Glucose Level 124 MG/DL (74-106) H Calcium Level 8.7 MG/DL (8.5-10.1) Iron Level 18 ug/dL (50-175) L Total Iron Binding Capacity 364 ug/dL (250-450) Percent Iron Saturation 5 % (15-50) L Unsaturated Iron Binding 346 ug/dL (112-346) Total Bilirubin 0.5 MG/DL (0.2-1.0) Aspartate Amino Transf (AST/SGOT) 7 U/L (15-37) L Alanine Aminotransferase (ALT/SGPT) 12 U/L (12-78) Alkaline Phosphatase 83 U/L (46-116) Total Protein 6.0 G/DL (6.4-8.2) L Albumin 1.8 G/DL (3.4-5.0) L Globulin 4.2 g/dL Albumin/Globulin Ratio 0.4 (1.0-2.7) L Vitamin B12 Level 1025 PG/ML (193-986) H Folate 11.5 NG/ML (8.6-58.9) Risk Assessment & Plan Assessment: ASA 3E Plan: TIVA Status Change Before Surgery: No León Penny MD Apr 28, 2018 10:50
[2018-04-28] MEDS ORDERED: Propofol 200mg/20ml IV ONE (11:00)
[2018-04-28] MEDS ORDERED: Lidocaine 1% MPF 10mg/ml 5ml ONE (11:00)
[2018-04-28] MEDS ORDERED: LR 1000ml ONE (11:00)
--- NOTE | 2018-04-28 11:02 | Immediate Post-Op Evaluation ---
Immediate Post-Op Evalulation Immediate Post-Op Evalulation Procedure: EGD Date of Evaluation: Apr 28, 2018 Time of Evaluation: 11:22 IV Fluids: 100 NS Blood Products: 0 Estimated Blood Loss: 1 Urinary Output: 0 Blood Pressure Systolic: 99 Blood Pressure Diastolic: 62 Pulse Rate: 51 Respiratory Rate: 16 O2 Sat by Pulse Oximetry: 99 Temperature (Fahrenheit): 97.2 Pain Score (1-10): 1 Nausea: No Vomiting: No Complications 0 Patient Status: awake, reacts, patent, none Hydration Status: adequate León Penny MD Apr 28, 2018 11:02
--- NOTE | 2018-04-28 11:03 | 48 Hour Post Anesthesia Eval ---
Post Anesthesia Evaluation Procedure: EGD Date of Evaluation: Apr 28, 2018 Time of Evaluation: 13:23 Blood Pressure Systolic: 112 0: 57 Pulse Rate: 58 Respiratory Rate: 18 Temperature (Fahrenheit): 97.2 O2 Sat by Pulse Oximetry: 100 Airway: patent Nausea: No Vomiting: No Pain Intensity: 1 Hydration Status: adequate Cardiopulmonary Status: Stable Mental Status/LOC: patient returned to baseline Follow-up Care/Observations: 0 Post-Anesthesia Complications: 0 Follow-up care needed: N/A León Penny MD Apr 28, 2018 11:03
[2018-04-28] MEDS ORDERED: Midazolam 2mg/2ml Inj ONE (11:08)
--- NOTE | 2018-04-28 11:08 | Endoscopy Procedure Note ---
Endoscopy Procedure Note General Indication for Procedure: gib Procedures Performed: EGD Operative Findings/Diagnosis: gastritis, HH Specimen: yes Pt Tolerated Procedure Well: Yes Estimated Blood Loss: none Anesthesia Anesthesiologist: maccay Anesthesia: MAC Inserted Devices Implant(s) used?: No GI Core Measures 50 yrs or older w/o bx or poly: Not Applicable 10yrs. F/U not recommended: Not Applicable Gonzales Sy MD Apr 28, 2018 11:08
--- NOTE | 2018-04-28 11:33 | General Surgery Progress Note ---
General Surgery-Progress Note Subjective Additional Comments doing well. leukocytosis improved. pain resolving. no n/v/f/c. Objective Last 24 Hour Vital Signs Date Time Temp Pulse Resp B/P (MAP) Pulse Ox O2 Delivery O2 Flow Rate FiO2 04/28/18 11:28 76 18 95/51 98 Simple Mask 6 04/28/18 11:23 65 18 100/62 98 Simple Mask 6 04/28/18 11:18 97.2 51 16 99/42 96 Simple Mask 6 04/28/18 11:17 58 18 100 04/28/18 11:16 51 16 99 04/28/18 09:00 Nasal Cannula 2.0 04/28/18 08:05 96 Nasal Cannula 2.0 28 04/28/18 08:05 Nasal Cannula 2.0 28 04/28/18 08:00 98.0 66 18 110/61 (77) 98 04/28/18 04:00 97.9 112 18 108/61 (77) 98 04/27/18 21:00 Nasal Cannula 2.0 04/27/18 20:31 93 Nasal Cannula 2.0 28 04/27/18 20:31 98 20 Nasal Cannula 2.0 28 04/27/18 20:31 Nasal Cannula 2.0 28 04/27/18 16:00 97.1 109 18 111/64 (80) 95 04/27/18 14:15 62 16 95 Nasal Cannula 2.0 28 04/27/18 14:15 65 16 95 Nasal Cannula 2.0 28 I&O Intake and Output 04/27/18 04/28/18 18:59 06:59 Intake Total 775.0 ml 917.5 ml Output Total 600 ml Balance 175.0 ml 917.5 ml Intake Oral 240 ml 120 ml IV Total 535.0 ml 797.5 ml Output Urine Total 600 ml # Voids 2 2 # Bowel Movements 1 Drains: none Cardiovascular: RSR Respiratory: clear Abdomen: soft, flat, non-tender, present bowel sounds Extremities: no tenderness, no cyanosis Laboratory Tests Test 04/28/18 02:00 04/28/18 08:35 Stool Occult Blood Positive (NEGATIVE) White Blood Count 11.7 K/UL (4.8-10.8) H Red Blood Count 2.69 M/UL (4.70-6.10) L Hemoglobin 7.7 G/DL (14.2-18.0) L Hematocrit 23.6 % (42.0-52.0) L Mean Corpuscular Volume 88 FL (80-99) Mean Corpuscular Hemoglobin 28.6 PG (27.0-31.0) Mean Corpuscular Hemoglobin Concent 32.7 G/DL (32.0-36.0) Red Cell Distribution Width 15.9 % (11.6-14.8) H Platelet Count 173 K/UL (150-450) Mean Platelet Volume 7.0 FL (6.5-10.1) Neutrophils (%) (Auto) % (45.0-75.0) Lymphocytes (%) (Auto) % (20.0-45.0) Monocytes (%) (Auto) % (1.0-10.0) Eosinophils (%) (Auto) % (0.0-3.0) Basophils (%) (Auto) % (0.0-2.0) Differential Total Cells Counted 100 Neutrophils % (Manual) 83 % (45-75) H Lymphocytes % (Manual) 11 % (20-45) L Monocytes % (Manual) 5 % (1-10) Eosinophils % (Manual) 1 % (0-3) Basophils % (Manual) 0 % (0-2) Band Neutrophils 0 % (0-8) Platelet Estimate Adequate Platelet Morphology Normal Hypochromasia 1+ Anisocytosis 1+ Sodium Level 134 MMOL/L (136-145) L Potassium Level 4.0 MMOL/L (3.5-5.1) Chloride Level 99 MMOL/L (98-107) Carbon Dioxide Level 25 MMOL/L (21-32) Anion Gap 10 mmol/L (5-15) Blood Urea Nitrogen 10 mg/dL (7-18) Creatinine 1.2 MG/DL (0.55-1.30) Estimat Glomerular Filtration Rate mL/min (>60) Glucose Level 124 MG/DL (74-106) H Calcium Level 8.7 MG/DL (8.5-10.1) Iron Level 18 ug/dL (50-175) L Total Iron Binding Capacity 364 ug/dL (250-450) Percent Iron Saturation 5 % (15-50) L Unsaturated Iron Binding 346 ug/dL (112-346) Total Bilirubin 0.5 MG/DL (0.2-1.0) Aspartate Amino Transf (AST/SGOT) 7 U/L (15-37) L Alanine Aminotransferase (ALT/SGPT) 12 U/L (12-78) Alkaline Phosphatase 83 U/L (46-116) Total Protein 6.0 G/DL (6.4-8.2) L Albumin 1.8 G/DL (3.4-5.0) L Globulin 4.2 g/dL Albumin/Globulin Ratio 0.4 (1.0-2.7) L Vitamin B12 Level 1025 PG/ML (193-986) H Folate 11.5 NG/ML (8.6-58.9) Plan Problems: (1) Abdominal pain Assessment & Plan: abdominal pain. nausea. coffee ground emesis. leukocytosis. labs noted exam benign. abd soft, nt/nd, bs+ CT without obstruction as per report - Pending OFFICIAL read fecal impaction s/p EGD -no acute surgical intervention planned -okay for diet -bowel regimen -appreciate GI input thank you will follow with recs. Ilia Rossi Apr 28, 2018 11:33
--- NOTE | 2018-04-28 13:15 | Procedure Note ---
DATE OF PROCEDURE: 04/28/2018 SURGEON: Gonzales Sy M.D. PROCEDURE: Upper endoscopy with biopsy. ANESTHESIOLOGIST: León Penny M.D. INSTRUMENT: Olympus adult flexible upper endoscope. INDICATION: GI bleeding. The procedure, risks, benefits, and possible consequences, including hemorrhage, aspiration, perforation and infection, and alternative treatments, were explained to the patient/legal guardian by Dr. Gonzales Sy and the patient/legal guardian understood and accepted these risks. PROCEDURE IN DETAIL: After informed consent was obtained and the patient was adequately sedated, Olympus upper endoscope was advanced from the mouth into the second portion of the duodenum and retroflexion was performed in the stomach. The patient had evidence of large hiatal hernia with minimal distal esophagitis LA criteria grade 1. No active bleeding in the esophagus. In the stomach, there was diffuse gastritis. Random biopsy from antrum was obtained to rule out H. pylori infection. The rest of upper endoscopic examination grossly looked within normal limits. The patient tolerated the procedure very well without any complication. SUMMARY OF FINDINGS: 1. Large hiatal hernia. 2. Minimum distal esophagitis. 3. Gastritis, status post biopsy. RECOMMENDATIONS: 1. Follow up biopsy results. 2. Monitor hemoglobin and hematocrit. Transfuse as needed. 3. Continue on PPI daily given esophagitis. 4. Start diet and advance as tolerated. 5. The patient may benefit from colonoscopy if needed. We will follow closely and make that recommendation later. I want to thank, Dr. Leland Joseph for this kind referral. Gonzales Sy M.D. DR: JEAN JOB#: [id number] CC: Leland Joseph D.O.
--- NOTE | 2018-04-28 15:08 | Consultation ---
History of Present Illness General Date patient seen: Apr 28, 2018 Chief Complaint: Abdominal Pain Present Illness Allergies: Coded Allergies: RISPERIDONE (Verified Allergy, Intermediate, 04/27/16) Medication History Scheduled Aspirin* (Aspirin*), 81 MG ORAL DAILY, (Reported) Atorvastatin Calcium* (Lipitor*), 80 MG ORAL BEDTIME, (Reported) Calcium Carbonate (Tums), 200 MG PO Q4HR, (Reported) Cetirizine Hcl* (Zyrtec*), 10 MG ORAL DAILY, (Reported) Cholecalciferol (Vitamin D3) (Vitamin D-400*), 400 UNITS ORAL DAILY, (Reported) Cyanocobalamin (Vitamin B-12)* (Vitamin B-12*), 500 MCG ORAL DAILY, (Reported) Docusate Sodium* (Docusate Sodium*), 100 MG ORAL TWICE A DAY, (Reported) Doxazosin Mesylate* (Cardura*), 6 MG ORAL BEDTIME, (Reported) Doxazosin Mesylate* (Cardura*), 4 MG ORAL HS, (Reported) Ferrous Sulfate* (Ferrous Sulfate*), 325 MG ORAL THREE TIMES A DAY, (Reported) Fluticasone Propionate (Flonase Allergy Relief), 9.9 ML NS BID, (Reported) Fluticasone/Salmeterol (Advair 250-50 Diskus), 1 PUFF INH EVERY 12 HOURS, ( Reported) Guaifenesin* (Adult Wal-Tussin*), 30 ML ORAL EVERY 6 HOURS, (Reported) Insulin Glargine (Lantus), 10 SUBQ DAILY, (Reported) Ipratropium/Albuterol Sulfate (DuoNeb 0.5-3(2.5)mg/3ml), 3 ML HHN Q4HR, ( Reported) Lansoprazole* (Prevacid*), 30 MG ORAL BID, (Reported) Losartan Potassium* (Losartan Potassium*), 50 MG ORAL DAILY, (Reported) Multivitamins* (Multivitamins*), 1 TAB ORAL DAILY, (Reported) Ondansetron Hcl* (Zofran*), 8 MG ORAL EVERY 4 HOURS, (Reported) Pantoprazole* (Protonix*), 40 MG ORAL EVERY 12 HOURS, (Reported) Prednisone (Prednisone), 60 MG PO DAILY, (Reported) Sennosides (Senna), 17.2 MG PO BEDTIME, (Reported) Tiotropium [place]* (Spiriva*), 1 PUFF INH DAILY, (Reported) Scheduled PRN Lorazepam* (Ativan*), 0.5 MG ORAL DAILY PRN for For Anxiety, (Reported) Meclizine Hcl* (Meclizine*), 25 MG ORAL THREE TIMES A DAY PRN for for dizziness, (Reported) Patient History Healthcare decision maker Resuscitation status Do Not Resuscitate Advanced Directive on File No Physical Exam Last 24 Hour Vital Signs Date Time Temp Pulse Resp B/P (MAP) Pulse Ox O2 Delivery O2 Flow Rate FiO2 04/28/18 11:33 98.2 81 16 104/56 98 Nasal Cannula 3 04/28/18 11:28 76 18 95/51 98 Simple Mask 6 04/28/18 11:23 65 18 100/62 98 Simple Mask 6 04/28/18 11:18 97.2 51 16 99/42 96 Simple Mask 6 04/28/18 11:17 58 18 100 04/28/18 11:16 51 16 99 04/28/18 09:00 Nasal Cannula 2.0 04/28/18 08:05 96 Nasal Cannula 2.0 28 04/28/18 08:05 Nasal Cannula 2.0 28 04/28/18 08:00 98.0 66 18 110/61 (77) 98 04/28/18 04:00 97.9 112 18 108/61 (77) 98 04/27/18 21:00 Nasal Cannula 2.0 04/27/18 20:31 93 Nasal Cannula 2.0 28 04/27/18 20:31 98 20 Nasal Cannula 2.0 28 04/27/18 20:31 Nasal Cannula 2.0 28 04/27/18 16:00 97.1 109 18 111/64 (80) 95 Intake and Output 04/27/18 04/28/18 18:59 06:59 Intake Total 775.0 ml 917.5 ml Output Total 600 ml Balance 175.0 ml 917.5 ml Intake Oral 240 ml 120 ml IV Total 535.0 ml 797.5 ml Output Urine Total 600 ml # Voids 2 2 # Bowel Movements 1 Laboratory Tests Test 04/28/18 02:00 04/28/18 08:35 Stool Occult Blood Positive (NEGATIVE) White Blood Count 11.7 K/UL (4.8-10.8) H Red Blood Count 2.69 M/UL (4.70-6.10) L Hemoglobin 7.7 G/DL (14.2-18.0) L Hematocrit 23.6 % (42.0-52.0) L Mean Corpuscular Volume 88 FL (80-99) Mean Corpuscular Hemoglobin 28.6 PG (27.0-31.0) Mean Corpuscular Hemoglobin Concent 32.7 G/DL (32.0-36.0) Red Cell Distribution Width 15.9 % (11.6-14.8) H Platelet Count 173 K/UL (150-450) Mean Platelet Volume 7.0 FL (6.5-10.1) Neutrophils (%) (Auto) % (45.0-75.0) Lymphocytes (%) (Auto) % (20.0-45.0) Monocytes (%) (Auto) % (1.0-10.0) Eosinophils (%) (Auto) % (0.0-3.0) Basophils (%) (Auto) % (0.0-2.0) Differential Total Cells Counted 100 Neutrophils % (Manual) 83 % (45-75) H Lymphocytes % (Manual) 11 % (20-45) L Monocytes % (Manual) 5 % (1-10) Eosinophils % (Manual) 1 % (0-3) Basophils % (Manual) 0 % (0-2) Band Neutrophils 0 % (0-8) Platelet Estimate Adequate Platelet Morphology Normal Hypochromasia 1+ Anisocytosis 1+ Sodium Level 134 MMOL/L (136-145) L Potassium Level 4.0 MMOL/L (3.5-5.1) Chloride Level 99 MMOL/L (98-107) Carbon Dioxide Level 25 MMOL/L (21-32) Anion Gap 10 mmol/L (5-15) Blood Urea Nitrogen 10 mg/dL (7-18) Creatinine 1.2 MG/DL (0.55-1.30) Estimat Glomerular Filtration Rate mL/min (>60) Glucose Level 124 MG/DL (74-106) H Calcium Level 8.7 MG/DL (8.5-10.1) Iron Level 18 ug/dL (50-175) L Total Iron Binding Capacity 364 ug/dL (250-450) Percent Iron Saturation 5 % (15-50) L Unsaturated Iron Binding 346 ug/dL (112-346) Ferritin Pending Total Bilirubin 0.5 MG/DL (0.2-1.0) Aspartate Amino Transf (AST/SGOT) 7 U/L (15-37) L Alanine Aminotransferase (ALT/SGPT) 12 U/L (12-78) Alkaline Phosphatase 83 U/L (46-116) Total Protein 6.0 G/DL (6.4-8.2) L Albumin 1.8 G/DL (3.4-5.0) L Globulin 4.2 g/dL Albumin/Globulin Ratio 0.4 (1.0-2.7) L Vitamin B12 Level 1025 PG/ML (193-986) H Folate 11.5 NG/ML (8.6-58.9) Height (Feet): 5 Height (Inches): 7.00 Weight (Pounds): 139 Medications Current Medications Medications (Trade) Dose Ordered Sig/Amish Route PRN Reason Start Time Stop Time Status Last Admin Dose Admin Aspirin (ASA) 81 mg DAILY ORAL 04/26/18 09:00 05/26/18 08:59 Atorvastatin Calcium (Lipitor) 80 mg BEDTIME ORAL 04/26/18 21:00 05/26/18 20:59 04/27/18 21:06 Bisacodyl (Dulcolax) 10 mg DAILYPRN PRN RECTAL Constipation 04/26/18 02:30 05/26/18 02:29 04/27/18 21:06 Calcium Carbonate (Tums) 250 mg Q4H PRN ORAL Nausea & Vomiting 04/26/18 06:30 05/26/18 02:29 04/26/18 21:12 Cetirizine HCl (ZyrTEC) 10 mg DAILY ORAL 04/26/18 09:00 05/26/18 08:59 Cyanocobalamin (Vitamin B-12) 500 mcg DAILY ORAL 04/26/18 09:00 05/26/18 08:59 Dextrose/Sodium Chloride 1,000 ml @ 60 mls/hr [id number] IV 04/26/18 02:15 05/26/18 02:14 04/28/18 04:06 Docusate Sodium (Colace) 100 mg TWICE A DAY ORAL 04/26/18 09:00 1/21/19 08:59 04/27/18 17:53 Doxazosin Mesylate (Cardura) 4 mg BEDTIME ORAL 04/26/18 21:00 05/26/18 20:59 04/27/18 21:06 Ferrous Sulfate (Feosol) 325 mg THREE TIMES A DAY ORAL 04/28/18 18:00 05/26/18 08:59 Heparin Sodium (Porcine) (Heparin 5000 units/ml) 5,000 units EVERY 12 HOURS SUBQ 04/26/18 09:00 05/26/18 08:59 04/27/18 21:01 Iopamidol (Isovue-300 100ml) 100 ml NOW PRN INJ Radiology Procedure 04/25/18 19:30 Iron Sucrose 100 mg/Sodium Chloride 60 ml @ 240 mls/hr BEDTIME IV 04/28/18 21:00 05/02/18 21:14 Lactulose (Cephulac) 20 gm THREE TIMES A DAY ORAL 04/27/18 09:00 05/26/18 08:59 04/27/18 17:53 Lorazepam (Ativan) 1 mg Q12H PRN ORAL For Anxiety 04/26/18 02:30 05/03/18 02:29 Losartan Potassium (Cozaar) 50 mg DAILY ORAL 04/26/18 09:00 05/26/18 08:59 Magnesium Hydroxide (Mom) 30 ml HSPRN PRN ORAL Constipation 04/26/18 02:30 05/26/18 02:29 Meclizine HCl (Antivert) 25 mg Q8H PRN ORAL for dizziness 04/26/18 02:30 05/26/18 02:29 Memantine (Namenda) 5 mg BID ORAL 04/26/18 18:00 05/26/18 17:59 Morphine Sulfate (Morphine Sulfate) 2 mg Q4H PRN IVP For Pain 04/26/18 02:15 05/03/18 02:14 04/26/18 16:17 Olanzapine (ZyPREXA Zydis) 5 mg BID ORAL 04/26/18 18:00 05/26/18 17:59 Ondansetron HCl (Zofran) 4 mg Q4H PRN IVP Nausea & Vomiting 04/26/18 02:15 05/26/18 02:14 04/27/18 08:36 Pantoprazole (Protonix) 40 mg ACBREAKFAST ORAL 04/26/18 06:30 05/26/18 06:29 04/28/18 05:37 Piperacillin Sod/ Tazobactam Sod 3.375 gm/Dextrose 110 ml @ 27.5 mls/hr EVERY 8 HOURS IVPB 04/26/18 11:30 05/01/18 11:29 04/28/18 13:42 Polyethylene Glycol (Miralax) 17 gm BEDTIME ORAL 04/26/18 21:00 05/26/18 20:59 04/27/18 21:08 Sennosides (Senokot) 17.2 mg BEDTIME ORAL 04/26/18 21:00 05/26/18 20:59 04/27/18 21:05 Sodium Phosphate (Fleet's Sodium Phosl Enema) 133 ml QOD PRN RECTAL Constipation 04/26/18 02:30 05/26/18 02:29 04/28/18 02:21 Tiotropium [place] (Spiriva Inhaler) 1 puff DAILY INH 04/26/18 09:00 05/26/18 08:59 04/27/18 14:15 Vitamin D (Vitamin D) 400 intlu DAILY ORAL 04/26/18 09:00 05/26/18 08:59 Assessment/Plan Assessment/Plan Hematology Consult REQ MD: Kaitlin Joseph [facility]: ANemia DOS 04/28/18 HPI 83-year-old male presents ED for evaluation. Coming from [facility] facility. Multiple episodes of vomiting with coffee-ground emesis. Also complaining of abdominal pain. Pain is burning, 7 out of 10, nonradiating. h/ o GERD. Denies fevers or chills. Denies chest pain or shortness of breath. No other aggravating relieving factors. Denies any other associated symptoms 04/28/18: egd completed, results pending, ct results pending as well Coded Allergies: RISPERIDONE (Verified Allergy, Intermediate, 04/27/16) Past Medical History: DM, HTN, GERD Social History: Denies: smoking, alcohol use, drug use Immunizations: UTD Reviewed Nursing Documentation: PMH: Agreed; PSxH: Agreed Past Medical History Deferred: Patient Unconscious Hx Cardiac Problems: No Hx Hypertension: Yes Hx COPD: Yes - pneumonia. Hx Diabetes: Yes - DIAB Hx Cancer: No Hx Gastrointestinal Problems: Yes - GERD Hx Neurological Problems: Yes - DEP Review of Systems All Other Systems: negative except mentioned in HPI ER Physical Exam - General Physical Exam Vital Signs reviewed Sp02 EP Interpretation: reviewed, normal General Appearance: no apparent distress, alert, GCS 15, non-toxic Head: normocephalic, atraumatic Eyes: bilateral eye normal inspection, bilateral eye PERRL ENT: hearing grossly normal, normal pharynx, no angioedema, normal voice Neck: full range of motion, supple/symm/no masses Respiratory: chest non-tender, lungs clear, normal breath sounds, speaking full sentences Cardiovascular #1: regular rate, rhythm, no edema Cardiovascular #2: 2+ carotid (R), 2+ carotid (L), 2+ radial (R), 2+ radial (L) , 2+ dorsalis pedis (R), 2+ dorsalis pedis (L) Gastrointestinal: normal bowel sounds, soft, non-distended, no guarding, no rebound, tenderness Rectal: deferred Genitourinary: normal inspection, no CVA tenderness Musculoskeletal: back normal, gait/station normal, normal range of motion, non- tender Neurologic: alert, oriented x3, responsive, motor strength/tone normal, sensory intact, speech normal Psychiatric: judgement/insight normal, memory normal, mood/affect normal, no suicidal/homicidal ideation Reflexes: 3+ bicep (R), 3+ bicep (L), 3+ tricep (R), 3+ tricep (L), 3+ knee (R) , 3+ knee (L) Skin: normal color, no rash, warm/dry, well hydrated Lymphatic: no adenopathy Labs Test 04/25/18 19:50 04/25/18 20:20 White Blood Count 20.8 K/UL (4.8-10.8) Red Blood Count 3.62 M/UL (4.70-6.10) Hemoglobin 10.6 G/DL (14.2-18.0) Hematocrit 32.4 % (42.0-52.0) Mean Corpuscular Volume 89 FL (80-99) Mean Corpuscular Hemoglobin 29.1 PG (27.0-31.0) Mean Corpuscular Hemoglobin Concent 32.6 G/DL (32.0-36.0) Red Cell Distribution Width 16.2 % (11.6-14.8) Platelet Count 401 K/UL (150-450) Mean Platelet Volume 5.7 FL (6.5-10.1) Neutrophils (%) (Auto) % (45.0-75.0) Lymphocytes (%) (Auto) % (20.0-45.0) Monocytes (%) (Auto) % (1.0-10.0) Eosinophils (%) (Auto) % (0.0-3.0) Basophils (%) (Auto) % (0.0-2.0) Differential Total Cells Counted 100 Neutrophils % (Manual) 93 % (45-75) Lymphocytes % (Manual) 1 % (20-45) Monocytes % (Manual) 4 % (1-10) Eosinophils % (Manual) 1 % (0-3) Basophils % (Manual) 0 % (0-2) Band Neutrophils 1 % (0-8) Platelet Estimate Adequate Platelet Morphology Normal Polychromasia 1+ Anisocytosis 1+ Sodium Level 135 MMOL/L (136-145) Potassium Level 4.4 MMOL/L (3.5-5.1) Chloride Level 99 MMOL/L (98-107) Carbon Dioxide Level 26 MMOL/L (21-32) Anion Gap 10 mmol/L (5-15) Blood Urea Nitrogen 19 mg/dL (7-18) Creatinine 1.1 MG/DL (0.55-1.30) Estimat Glomerular Filtration Rate mL/min (>60) Glucose Level 192 MG/DL (74-106) Calcium Level 9.7 MG/DL (8.5-10.1) Total Bilirubin 0.5 MG/DL (0.2-1.0) Aspartate Amino Transf (AST/SGOT) 16 U/L (15-37) Alanine Aminotransferase (ALT/SGPT) 16 U/L (12-78) Alkaline Phosphatase 93 U/L (46-116) Total Protein 7.1 G/DL (6.4-8.2) Albumin 2.4 G/DL (3.4-5.0) Globulin 4.7 g/dL Albumin/Globulin Ratio 0.5 (1.0-2.7) Lipase 58 U/L (73-393) Urine Color Pale yellow Urine Appearance Clear Urine pH 8 (4.5-8.0) Urine Specific [place] 1.010 (1.005-1.035) Urine Protein 2+ (NEGATIVE) Urine Glucose (UA) 1+ (NEGATIVE) Urine Ketones 3+ (NEGATIVE) Urine Blood Negative (NEGATIVE) Urine Nitrite Negative (NEGATIVE) Urine Bilirubin Negative (NEGATIVE) Urine Urobilinogen Normal MG/DL (0.0-1.0) Urine Leukocyte Esterase Negative (NEGATIVE) Urine RBC 0-2 /HPF (0 - 0) Urine WBC 0-2 /HPF (0 - 0) Urine Squamous Epithelial Cells Few /LPF (NONE/OCC) Urine Bacteria None /HPF (NONE) Assessment/Recs: # Anemia of iron deficiency is likely related to gi bleed --> anemia panel has been reviewed --> transfuse if hgb <7 --> iv iron has been started --> egd was completed and final results pending with Dr. Sy --> Ct scan completed, results pending # Leukocytosis likely reactive process from anemia # GERD, continue on ppi # DM2, # HTN, # COPD # Emesis # Tachycardia # Chest pain, atypical angina Greatly appreciate consultation! Nick Bishop MD Apr 28, 2018 15:08
--- NOTE | 2018-04-28 16:20 | Cardiology Progress Note ---
Assessment/Plan Status: stable Assessment/Plan Assessment/Plan Status: stable Assessment/Plan Assessment: GERD, DM2, HTN, COPD Emesis tachycardia Chest pain, atypical angina Plan: Empiric antibiotics IV fluids Zofran Troponin/EKG Swallow study Follow up CT scan Continue home medications cleared for EGD today Subjective Cardiovascular: Reports: no symptoms Respiratory: Reports: no symptoms Gastrointestinal/Abdominal: Reports: no symptoms Genitourinary: Reports: no symptoms Subjective [employer] leukocytosis. mild abdominal discomfort, passing flatus. no bm, awake, no complaint of pain but irritable For EGD today Objective Last 24 Hour Vital Signs Date Time Temp Pulse Resp B/P (MAP) Pulse Ox O2 Delivery O2 Flow Rate FiO2 04/28/18 11:33 98.2 81 16 104/56 98 Nasal Cannula 3 04/28/18 11:28 76 18 95/51 98 Simple Mask 6 04/28/18 11:23 65 18 100/62 98 Simple Mask 6 04/28/18 11:18 97.2 51 16 99/42 96 Simple Mask 6 04/28/18 11:17 58 18 100 04/28/18 11:16 51 16 99 04/28/18 09:00 Nasal Cannula 2.0 04/28/18 08:05 96 Nasal Cannula 2.0 28 04/28/18 08:05 Nasal Cannula 2.0 28 04/28/18 08:00 98.0 66 18 110/61 (77) 98 04/28/18 04:00 97.9 112 18 108/61 (77) 98 04/27/18 21:00 Nasal Cannula 2.0 04/27/18 20:31 93 Nasal Cannula 2.0 28 04/27/18 20:31 98 20 Nasal Cannula 2.0 28 04/27/18 20:31 Nasal Cannula 2.0 28 General Appearance: no apparent distress, alert Neck: non-tender, normal alignment, supple, normal inspection, no JVD Rhythm: NSR Cardiovascular: normal peripheral pulses, normal rate, regularly irregular Respiratory/Chest: chest wall non-tender, lungs clear Abdomen: normal bowel sounds, non tender Extremities: normal range of motion, non-tender, normal inspection 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0) Mean Corpuscular Hemoglobin Concent 32.7 G/DL (32.0-36.0) Red Cell Distribution Width 15.9 % (11.6-14.8) H Platelet Count 173 K/UL (150-450) Mean Platelet Volume 7.0 FL (6.5-10.1) Neutrophils (%) (Auto) % (45.0-75.0) Lymphocytes (%) (Auto) % (20.0-45.0) Monocytes (%) (Auto) % (1.0-10.0) Eosinophils (%) (Auto) % (0.0-3.0) Basophils (%) (Auto) % (0.0-2.0) Differential Total Cells Counted 100 Neutrophils % (Manual) 83 % (45-75) H Lymphocytes % (Manual) 11 % (20-45) L Monocytes % (Manual) 5 % (1-10) Eosinophils % (Manual) 1 % (0-3) Basophils % (Manual) 0 % (0-2) Band Neutrophils 0 % (0-8) Platelet Estimate Adequate Platelet Morphology Normal Hypochromasia 1+ Anisocytosis 1+ Sodium Level 134 MMOL/L (136-145) L Potassium Level 4.0 MMOL/L (3.5-5.1) Chloride Level 99 MMOL/L (98-107) Carbon Dioxide Level 25 MMOL/L (21-32) Anion Gap 10 mmol/L (5-15) Blood Urea Nitrogen 10 mg/dL (7-18) Creatinine 1.2 MG/DL (0.55-1.30) Estimat Glomerular Filtration Rate mL/min (>60) Glucose Level 124 MG/DL (74-106) H Calcium Level 8.7 MG/DL (8.5-10.1) Iron Level 18 ug/dL (50-175) L Total Iron Binding Capacity 364 ug/dL (250-450) Percent Iron Saturation 5 % (15-50) L Unsaturated Iron Binding 346 ug/dL (112-346) Ferritin 1659 NG/ML (8-388) H Total Bilirubin 0.5 MG/DL (0.2-1.0) Aspartate Amino Transf (AST/SGOT) 7 U/L (15-37) L Alanine Aminotransferase (ALT/SGPT) 12 U/L (12-78) Alkaline Phosphatase 83 U/L (46-116) Total Protein 6.0 G/DL (6.4-8.2) L Albumin 1.8 G/DL (3.4-5.0) L Globulin 4.2 g/dL Albumin/Globulin Ratio 0.4 (1.0-2.7) L Vitamin B12 Level 1025 PG/ML (193-986) H Folate 11.5 NG/ML (8.6-58.9) Microbiology Date/Time Source Procedure Growth Status 04/25/18 22:10 Blood Blood Culture - Preliminary NO GROWTH AFTER 48 HOURS Resulted 04/25/18 22:05 Blood Blood Culture - Preliminary NO GROWTH AFTER 48 HOURS Resulted 04/25/18 22:50 Nasal Nares MRSA Culture - Final NO METHICILLIN RESISTANT STAPH AUREUS... Complete 04/25/18 22:50 Rectum - Final NO CARBAPENEM-RESISTANT ENTEROBACTERI... Complete 04/25/18 22:50 Rectum VRE Culture - Final Enterococcus Faecalis - Vre Complete Suraj Valdivia MD Apr 28, 2018 16:20
--- NOTE | 2018-04-28 18:12 | Diagnostic Imaging Report ---
History: ABD PAIN Exam: XR CXR 1 VIEW Comparison: 04/20/2018 and 04/25/2018 as well as abdominal pelvis CT 04/25/2018 FINDINGS: Ill-defined airspace opacity at the left apex and right perihilar to mid area not significantly changed in appearance may represent multifocal pneumonia Ill-defined 2 cm nodular density at the medial left lower lung concerning for lesion partially imaged on CT of the abdomen and pelvis Difficult to exclude a 1.4 cm ill-defined lesion at the right apex superimposed over the posterior right fourth rib Sequela of previous granulomatous disease and hyperinflation, emphysematous change of the left mid to lower lung again noted IMPRESSION: Ill-defined airspace opacity at the left apex and right perihilar to mid area not significantly changed in appearance may represent multifocal pneumonia Ill-defined 2 cm nodular density at the medial left lower lung concerning for lesion partially imaged on CT of the abdomen and pelvis Difficult to exclude a 1.4 cm ill-defined lesion at the right apex superimposed over the posterior right fourth rib Sequela of previous granulomatous disease and hyperinflation, emphysematous change of the left mid to lower lung again noted
[2018-04-28] MEDS: Doxazosin 4mg tab ORAL SCH (20:59)
[2018-04-28] MEDS: Atorvastatin 80mg tab ORAL SCH (20:59)
[2018-04-28] MEDS: Miralax 17gm pkt ORAL SCH ×2 (20:59→21:00)
[2018-04-28] MEDS: Sennosides 8.6mg tab ORAL SCH ×2 (20:59→21:00)
[2018-04-28] MEDS ORDERED: Iron Sucrose 100 MG in NS 55 ML IV SCH (21:00)
[2018-04-29] VITALS: BP 109/61
[2018-04-29] MEDS: Tums 500mg ORAL PRN (01:45)
[2018-04-29 04:00] VITALS: BP 127/75
[2018-04-29] MEDS: Piperacillin/Tazobactam 3.375 GM in D5W 110 ML IVPB SCH ×3 (05:09→21:29)
[2018-04-29] MEDS: Docusate 100mg cap ORAL SCH ×3 (08:49→17:15)
[2018-04-29] MEDS: ZyPREXA Zydis 5mg tab ORAL SCH ×3 (08:49→17:15)
[2018-04-29] MEDS: Memantine 5 MG TAB ORAL SCH ×3 (08:49→17:15)
[2018-04-29] MEDS: Vitamin B-12 500mcg tab ORAL SCH ×2 (08:49→09:00)
[2018-04-29] MEDS: Vitamin D 400 INTLU TAB ORAL SCH ×2 (08:49→09:00)
[2018-04-29] MEDS: Lactulose 10gm/15ml UDC ORAL SCH ×3 (09:00→18:00)
[2018-04-29] MEDS: Heparin 5000 units/ml inj SUBQ SCH ×2 (09:00→20:45)
[2018-04-29] MEDS: Losartan 50mg tab ORAL SCH (09:00)
[2018-04-29] MEDS: Aspirin Baby 81mg ORAL SCH (09:00)
[2018-04-29 09:44] VITALS: BP 113/60
--- NOTE | 2018-04-29 10:00 | Progress Note ---
DATE: 04/29/2018 SUBJECTIVE: The patient is an 83-year-old male, abdominal pain. He has lot of agitation, irritability, and mood lability, worsened by stress of his medical illness. That is why, his attending has requested daily psychiatric consultation. DIAGNOSIS: Bipolar 2. PLAN: Treat him with psychotropic medications to stabilize his mood. Provided him with 20 minutes of cognitive behavioral therapy to help him identify automatic negative thoughts and help him to convert to those automatic negative thoughts to more positive thoughts to reduce depression, anxiety, and suicidality. A 20 minutes of cognitive behavioral therapy provided. Darrick Robert M.D. DR: RAMOS JOB#: [id number] CC:
[2018-04-29] MEDS: Morphine Sulfate 2mg/ml Inj IVP PRN (10:35)
--- NOTE | 2018-04-29 10:36 | General Progress Note ---
Assessment/Plan Problem List: (1) Intractable vomiting ICD Codes: R11.10 - Vomiting, unspecified SNOMED: 319935001, 462445898 Qualifiers: Qualified Codes: R11.2 - Nausea with vomiting, unspecified (2) Hypertension ICD Codes: I10 - Essential (primary) hypertension SNOMED: 60276273 (3) GERD (gastroesophageal reflux disease) ICD Codes: K21.9 - Gastro-esophageal reflux disease without esophagitis SNOMED: 449612134 (4) PVD (peripheral vascular disease) ICD Codes: I73.9 - Peripheral vascular disease, unspecified SNOMED: 351650659 (5) Leukocytosis ICD Codes: D72.829 - Elevated white blood cell count, unspecified SNOMED: 801552149, 778302318 Qualifiers: Qualified Codes: D72.829 - Elevated white blood cell count, unspecified (6) Fecal impaction ICD Codes: K56.41 - Fecal impaction SNOMED: 95427997 (7) Anemia ICD Codes: D64.9 - Anemia, unspecified SNOMED: 864302231 (8) Constipation ICD Codes: K59.00 - Constipation, unspecified SNOMED: 61747031 Assessment/Plan SUMMARY OF FINDINGS: 1. Large hiatal hernia. 2. Minimum distal esophagitis. 3. Gastritis, status post biopsy. RECOMMENDATIONS: 1. Follow up biopsy results. 2. Monitor hemoglobin and hematocrit. Transfuse as needed. 3. Continue on PPI daily given esophagitis. 4. Start diet and advance as tolerated. 5. The patient may benefit from colonoscopy if needed. We will follow closely and make that recommendation later. iv iron Subjective ROS Limited/Unobtainable: Yes Allergies: Coded Allergies: RISPERIDONE (Verified Allergy, Intermediate, 04/27/16) Subjective c/o abd pain Objective Last 24 Hour Vital Signs Date Time Temp Pulse Resp B/P (MAP) Pulse Ox O2 Delivery O2 Flow Rate FiO2 04/29/18 09:58 68 18 95 Nasal Cannula 2.0 28 04/29/18 09:58 65 16 94 Nasal Cannula 2.0 28 04/29/18 09:44 97.7 107 24 113/60 (77) 98 04/29/18 07:40 Nasal Cannula 2.0 28 04/29/18 07:40 97 Nasal Cannula 2.0 28 04/29/18 04:00 98.1 111 20 127/75 (92) 96 04/29/18 00:00 97.0 113 20 109/61 (77) 95 04/28/18 21:00 Nasal Cannula 2.0 04/28/18 20:24 98 Nasal Cannula 2.0 28 04/28/18 20:24 Nasal Cannula 2.0 28 04/28/18 20:00 97.7 72 20 156/80 (105) 97 04/28/18 16:00 97.6 106 20 103/60 (74) 97 04/28/18 11:33 98.2 81 16 104/56 98 Nasal Cannula 3 04/28/18 11:28 76 18 95/51 98 Simple Mask 6 04/28/18 11:23 65 18 100/62 98 Simple Mask 6 04/28/18 11:18 97.2 51 16 99/42 96 Simple Mask 6 04/28/18 11:17 58 18 100 04/28/18 11:16 51 16 99 Intake and Output 04/28/18 04/29/18 19:00 07:00 Intake Total 1162.5 ml 230.0 ml Balance 1162.5 ml 230.0 ml Intake Oral 360 ml 120 ml IV Total 802.5 ml 110.0 ml # Voids 4 2 Height (Feet): 5 Height (Inches): 7.00 Weight (Pounds): 139 General Appearance: alert EENT: normal ENT inspection Neck: supple Cardiovascular: normal rate Respiratory/Chest: decreased breath sounds Abdomen: soft, hypoactive bowel sounds, tender Extremities: non-tender Gonzales Sy MD Apr 29, 2018 10:36
[2018-04-29] MEDS: D5 1/2NS 1,000 ML IV SCH (13:35)
[2018-04-29] MEDS: Sucralfate 1gm tab ORAL SCH ×3 (14:31→20:44)
--- NOTE | 2018-04-29 16:23 | General Progress Note ---
Assessment/Plan Assessment/Plan Covering for Kaitlin Joseph # Anemia of iron deficiency is likely related to gi bleed --> anemia panel has been reviewed --> transfuse if hgb <7 --> iv iron has been started --> egd was completed and shows gastritis, distal esophagitis is on ppi --> Ct scan completed, results pending # Leukocytosis likely reactive process from anemia --> improved # GERD, continue on ppi # DM2, # HTN, # COPD # Emesis # Tachycardia # Chest pain, atypical angina Greatly appreciate consultation! Subjective Constitutional: Denies: no symptoms, chills, diaphoresis, fever, malaise, weakness, other HEENT: Denies: no symptoms, eye pain, blurred vision, tearing, double vision, ear pain, ear discharge, nose pain, nose congestion, throat pain, throat swelling, mouth pain, mouth swelling, other Respiratory: Denies: no symptoms, cough, orthopnea, shortness of breath, SOB with excertion, SOB at rest, sputum, stridor, wheezing, other Genitourinary: Denies: no symptoms, burning, discharge, frequency, flank pain, hematuria, incontinence, pain, urgency, other Neurologic/Psychiatric: Denies: no symptoms, anxiety, depressed, emotional problems, headache, numbness, paresthesia, pre-existing deficit, seizure, tingling, tremors, weakness, other Endocrine: Denies: no symptoms, excessive sweating, flushing, intolerance to cold, intolerance to heat, increased hunger, increased thirst, increased urine, unexplained weight gain, unexplained weight loss, other Hematologic/Lymphatic: Denies: no symptoms, anemia, easy bleeding, easy bruising, other Allergies: Coded Allergies: RISPERIDONE (Verified Allergy, Intermediate, 04/27/16) Subjective 04/29: tolerating iv iron very well, h/h pending from today, will re-order cbc Objective Last 24 Hour Vital Signs Date Time Temp Pulse Resp B/P (MAP) Pulse Ox O2 Delivery O2 Flow Rate FiO2 04/29/18 11:05 97.7 04/29/18 09:58 68 18 95 Nasal Cannula 2.0 28 04/29/18 09:58 65 16 94 Nasal Cannula 2.0 28 04/29/18 09:44 97.7 107 24 113/60 (77) 98 04/29/18 09:00 Nasal Cannula 2.0 04/29/18 07:40 Nasal Cannula 2.0 28 04/29/18 07:40 97 Nasal Cannula 2.0 28 04/29/18 04:00 98.1 111 20 127/75 (92) 96 04/29/18 00:00 97.0 113 20 109/61 (77) 95 04/28/18 21:00 Nasal Cannula 2.0 04/28/18 20:24 98 Nasal Cannula 2.0 28 04/28/18 20:24 Nasal Cannula 2.0 28 04/28/18 20:00 97.7 72 20 156/80 (105) 97 Intake and Output 04/28/18 04/29/18 18:59 06:59 Intake Total 1162.5 ml 230.0 ml Balance 1162.5 ml 230.0 ml Intake Oral 360 ml 120 ml IV Total 802.5 ml 110.0 ml # Voids 4 2 Height (Feet): 5 Height (Inches): 7.00 Weight (Pounds): 139 General Appearance: no apparent distress EENT: pharynx normal Neck: normal inspection Cardiovascular: normal rate Respiratory/Chest: no respiratory distress Abdomen: soft Extremities: non-tender Edema: no edema noted Leg (L), no edema noted Leg (R) Edema: trace edema Skin: warm/dry Nick Bishop MD Apr 29, 2018 16:23
--- NOTE | 2018-04-29 16:27 | General Surgery Progress Note ---
General Surgery-Progress Note Subjective Symptoms: improved, tolerating diet, passing flatus Additional Comments no acute events. Objective Last 24 Hour Vital Signs Date Time Temp Pulse Resp B/P (MAP) Pulse Ox O2 Delivery O2 Flow Rate FiO2 04/29/18 11:05 97.7 04/29/18 09:58 68 18 95 Nasal Cannula 2.0 28 04/29/18 09:58 65 16 94 Nasal Cannula 2.0 28 04/29/18 09:44 97.7 107 24 113/60 (77) 98 04/29/18 09:00 Nasal Cannula 2.0 04/29/18 07:40 Nasal Cannula 2.0 28 04/29/18 07:40 97 Nasal Cannula 2.0 28 04/29/18 04:00 98.1 111 20 127/75 (92) 96 04/29/18 00:00 97.0 113 20 109/61 (77) 95 04/28/18 21:00 Nasal Cannula 2.0 04/28/18 20:24 98 Nasal Cannula 2.0 28 04/28/18 20:24 Nasal Cannula 2.0 28 04/28/18 20:00 97.7 72 20 156/80 (105) 97 I&O Intake and Output 04/28/18 04/29/18 18:59 06:59 Intake Total 1162.5 ml 230.0 ml Balance 1162.5 ml 230.0 ml Intake Oral 360 ml 120 ml IV Total 802.5 ml 110.0 ml # Voids 4 2 Cardiovascular: RSR Respiratory: clear Abdomen: soft, flat, non-tender, present bowel sounds Extremities: no cyanosis Plan Problems: (1) Abdominal pain Assessment & Plan: abdominal pain. nausea. coffee ground emesis. leukocytosis. labs noted exam benign. abd soft, nt/nd, bs+ CT without obstruction as per report - Pending OFFICIAL read fecal impaction s/p EGD -no acute surgical intervention planned -okay for diet -bowel regimen -appreciate GI input thank you will follow with recs. Ilia Rossi Apr 29, 2018 16:27
[2018-04-29 20:00] VITALS: BP 116/66
[2018-04-29] MEDS: Atorvastatin 80mg tab ORAL SCH (20:44)
[2018-04-29] MEDS: Sennosides 8.6mg tab ORAL SCH (20:44)
[2018-04-29] MEDS: Doxazosin 4mg tab ORAL SCH (20:44)
[2018-04-29] MEDS: Miralax 17gm pkt ORAL SCH (20:45)
[2018-04-29] MEDS: Iron Sucrose 100 MG in NS 55 ML IVPB SCH (20:46)
--- NOTE | 2018-04-29 22:42 | Cardiology Progress Note ---
Assessment/Plan Status: stable Assessment/Plan Assessment/Plan Status: stable Assessment/Plan Assessment: GERD, DM2, HTN, COPD Emesis tachycardia Chest pain, atypical angina Plan: Empiric antibiotics IV fluids Zofran Troponin/EKG Swallow study Follow up CT scan Continue home medications cleared for EGD today prbc transfusion Subjective Cardiovascular: Reports: no symptoms Respiratory: Reports: no symptoms Gastrointestinal/Abdominal: Reports: no symptoms Genitourinary: Reports: no symptoms Subjective [employer] leukocytosis. mild abdominal discomfort, passing flatus. no bm, awake, no complaint of pain but irritable s/p PRBC transfusion Objective Last 24 Hour Vital Signs Date Time Temp Pulse Resp B/P (MAP) Pulse Ox O2 Delivery O2 Flow Rate FiO2 04/29/18 21:00 Nasal Cannula 2.0 04/29/18 20:00 97.9 20 116/66 (83) 95 04/29/18 19:49 97 Nasal Cannula 2.0 28 04/29/18 19:49 Nasal Cannula 2.0 28 04/29/18 11:05 97.7 04/29/18 09:58 68 18 95 Nasal Cannula 2.0 28 04/29/18 09:58 65 16 94 Nasal Cannula 2.0 28 04/29/18 09:44 97.7 107 24 113/60 (77) 98 04/29/18 09:00 Nasal Cannula 2.0 04/29/18 07:40 Nasal Cannula 2.0 28 04/29/18 07:40 97 Nasal Cannula 2.0 28 04/29/18 04:00 98.1 111 20 127/75 (92) 96 04/29/18 00:00 97.0 113 20 109/61 (77) 95 General Appearance: alert, mild distress EENT: PERRL/EOMI, normal ENT inspection, TMs normal, pharynx normal Neck: non-tender, normal alignment, supple, normal inspection, no JVD Rhythm: NSR Cardiovascular: normal peripheral pulses, normal rate, regular rhythm Respiratory/Chest: chest wall non-tender, lungs clear, normal breath sounds, no respiratory distress, no accessory muscle use Abdomen: normal bowel sounds, non tender, soft, no organomegaly Extremities: normal range of motion, non-tender, normal inspection, no calf tenderness, no swelling 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
[2018-04-30] VITALS: BP 122/53
[2018-04-30] MEDS: D5 1/2NS 1,000 ML IV SCH ×2 (01:55→05:50)
[2018-04-30] MEDS: Piperacillin/Tazobactam 3.375 GM in D5W 110 ML IVPB SCH ×3 (01:55→14:31)
[2018-04-30 08:00] VITALS: BP 121/59
[2018-04-30 08:13] LABS: HEMATOCRIT 28.6 % (42.0-52.0); HEMOGLOBIN 9.5 G/DL (14.2-18.0); MEAN CORPUSCULAR VOLUME 89 FL (80-99); PLATELET COUNT 200 K/UL (150-450); RED BLOOD COUNT 3.21 M/UL (4.70-6.10); RED CELL DISTRIBUTION WIDTH 15.5 % (11.6-14.8); WHITE BLOOD COUNT 17.5 K/UL (4.8-10.8)
[2018-04-30] MEDS ORDERED: LORazepam 1mg tab ORAL PRN (08:15)
[2018-04-30 08:37] LABS: ANION GAP 11 mmol/L (5-15); BLOOD UREA NITROGEN 12 mg/dL (7-18); CALCIUM 9.1 MG/DL (8.5-10.1); CARBON DIOXIDE 25 MMOL/L (21-32); CHLORIDE 99 MMOL/L (98-107); CREATININE 1.3 MG/DL (0.55-1.30); POTASSIUM 3.4 MMOL/L (3.5-5.1); SODIUM 134 MMOL/L (136-145)
[2018-04-30] MEDS: Vitamin B-12 500mcg tab ORAL SCH (08:50)
[2018-04-30] MEDS: Lactulose 10gm/15ml UDC ORAL SCH ×3 (08:50→17:18)
[2018-04-30] MEDS: ZyPREXA Zydis 5mg tab ORAL SCH ×2 (08:50→17:08)
[2018-04-30] MEDS: Vitamin D 400 INTLU TAB ORAL SCH (08:50)
[2018-04-30] MEDS: Losartan 50mg tab ORAL SCH (08:51)
[2018-04-30] MEDS: Memantine 5 MG TAB ORAL SCH ×2 (08:51→17:08)
[2018-04-30] MEDS: Sucralfate 1gm tab ORAL SCH ×4 (08:51→21:00)
[2018-04-30] MEDS: Aspirin Baby 81mg ORAL SCH (08:51)
[2018-04-30] MEDS: Docusate 100mg cap ORAL SCH ×2 (08:51→17:07)
[2018-04-30] MEDS: Heparin 5000 units/ml inj SUBQ SCH ×2 (08:52→21:00)
--- NOTE | 2018-04-30 10:17 | General Surgery Progress Note ---
General Surgery-Progress Note Subjective Symptoms: improved, pain absent, tolerating diet, passing flatus Additional Comments doing well. comfortable. no complaints Objective Last 24 Hour Vital Signs Date Time Temp Pulse Resp B/P (MAP) Pulse Ox O2 Delivery O2 Flow Rate FiO2 04/30/18 09:00 Nasal Cannula 2.0 04/30/18 08:51 121/59 04/30/18 08:17 Nasal Cannula 2.0 28 04/30/18 08:16 95 Nasal Cannula 2.0 28 04/30/18 08:15 71 20 95 Nasal Cannula 2.0 28 04/30/18 08:11 71 20 95 Nasal Cannula 2.0 28 04/30/18 08:00 96.6 62 19 121/59 (79) 93 04/30/18 00:00 96.8 65 19 122/53 (76) 91 04/29/18 21:00 Nasal Cannula 2.0 04/29/18 20:00 97.9 20 116/66 (83) 95 04/29/18 19:49 97 Nasal Cannula 2.0 04/29/18 19:49 Nasal Cannula 2.0 28 04/29/18 11:05 97.7 I&O Intake and Output 04/29/18 04/30/18 19:00 07:00 Intake Total 377.5 ml 137.5 ml Output Total 800 ml Balance -422.5 ml 137.5 ml IV Total 377.5 ml 137.5 ml Output Urine Total 200 ml Emesis 600 ml # Voids 1 # Bowel Movements 1 Drains: none Cardiovascular: RSR Respiratory: clear Abdomen: soft, flat, non-tender, present bowel sounds Extremities: no cyanosis Laboratory Tests Test 04/30/18 07:56 White Blood Count 17.5 K/UL (4.8-10.8) H Red Blood Count 3.21 M/UL (4.70-6.10) L Hemoglobin 9.5 G/DL (14.2-18.0) L Hematocrit 28.6 % (42.0-52.0) L Mean Corpuscular Volume 89 FL (80-99) Mean Corpuscular Hemoglobin 29.7 PG (27.0-31.0) Mean Corpuscular Hemoglobin Concent 33.4 G/DL (32.0-36.0) Red Cell Distribution Width 15.5 % (11.6-14.8) H Platelet Count 200 K/UL (150-450) Mean Platelet Volume 6.2 FL (6.5-10.1) L Neutrophils (%) (Auto) % (45.0-75.0) Lymphocytes (%) (Auto) % (20.0-45.0) Monocytes (%) (Auto) % (1.0-10.0) Eosinophils (%) (Auto) % (0.0-3.0) Basophils (%) (Auto) % (0.0-2.0) Differential Total Cells Counted 100 Neutrophils % (Manual) 89 % (45-75) H Lymphocytes % (Manual) 2 % (20-45) L Monocytes % (Manual) 6 % (1-10) Eosinophils % (Manual) 3 % (0-3) Basophils % (Manual) 0 % (0-2) Band Neutrophils 0 % (0-8) Platelet Estimate Adequate Platelet Morphology Normal Anisocytosis 1+ Sodium Level 134 MMOL/L (136-145) L Potassium Level 3.4 MMOL/L (3.5-5.1) L Chloride Level 99 MMOL/L (98-107) Carbon Dioxide Level 25 MMOL/L (21-32) Anion Gap 11 mmol/L (5-15) Blood Urea Nitrogen 12 mg/dL (7-18) Creatinine 1.3 MG/DL (0.55-1.30) Estimat Glomerular Filtration Rate mL/min (>60) Glucose Level 110 MG/DL (74-106) H Calcium Level 9.1 MG/DL (8.5-10.1) Plan Problems: (1) Abdominal pain Assessment & Plan: abdominal pain. nausea. coffee ground emesis. leukocytosis. labs noted exam benign. abd soft, nt/nd, bs+ CT without obstruction as per report - Pending OFFICIAL read fecal impaction s/p EGD -no acute surgical intervention planned -okay for diet -bowel regimen -appreciate GI input thank you will follow with recs. Ilia Rossi Apr 30, 2018 10:16
--- NOTE | 2018-04-30 11:38 | Infectious Diseases Prog Note ---
Assessment/Plan Assessment/Plan Assessment: Sepsis, improving- likely from intraabdominal source and PNA- Lung opacities- r/o inefctions vs malignancy u/a neg Bcx NTD CXR: Ill-defined airspace opacity at the left apex and right perihilar to mid area not significantly changed in appearance may represent multifocal pneumonia. Ill-defined 2 cm nodular density at the medial left lower lung concerning for lesion partially imaged on CT of the abdomen and pelvis. Difficult to exclude a 1.4 cm ill-defined lesion at the right apex superimposed over the posterior right fourth rib. Sequela of previous granulomatous disease and hyperinflation, emphysematous change of the left mid to lower lung again noted Coffee ground emesis Abdominal pain- ileus vs SBP -KUB: 1Diffuse gaseous distention of large and small bowel loops, nonspecific. This may suggest ileus or partial obstruction. Fecal retention in the right colon, which may suggest constipation. -CT ab/p p Afebrile Leukocytosis, increased Recent PNA, s/p Rx -04/17 sp cx MRSA, PsA (franklin S) -influenz sc neg GERD DM2 HTN COPD SN[facility] resident anemia BPH PVD cachectic DNR Plan: -Continue empiric Zosyn #5 pending cultures and clinical improvement -04/22 SP PO Levaquin and Linezolid #7 -04/16 SP Augmentin #1 -f/u CT abd./p (STILL PENDING REPORT SINCE 04/25; I HAVE CALLED RAD DEPT TO FOLLOW UP) -CT Chest to further eval opacities seen in CXR -f/u cx -Monitor CBC/CMP, temperatures -GI, Sx fu -aspiration precautions -Cocci ab, CrAg, fungitell, hiv ab Thank you for this consultation. Will continue to follow along with you. Discussed with RN. Subjective Allergies: Coded Allergies: RISPERIDONE (Verified Allergy, Intermediate, 04/27/16) Subjective Afebrile leuokcytosis increased to [address] abd/p still pending! Objective Vital Signs Last 24 Hour Vital Signs Date Time Temp Pulse Resp B/P (MAP) Pulse Ox O2 Delivery O2 Flow Rate FiO2 04/30/18 09:00 Nasal Cannula 2.0 04/30/18 08:51 121/59 04/30/18 08:17 Nasal Cannula 2.0 28 12/26/18 08:16 95 Nasal Cannula 2.0 28 04/30/18 08:15 71 20 95 Nasal Cannula 2.0 28 04/30/18 08:11 71 20 95 Nasal Cannula 2.0 28 04/30/18 08:00 96.6 62 19 121/59 (79) 93 04/30/18 00:00 96.8 65 19 122/53 (76) 91 04/29/18 21:00 Nasal Cannula 2.0 04/29/18 20:00 97.9 20 116/66 (83) 95 04/29/18 19:49 97 Nasal Cannula 2.0 28 04/29/18 19:49 Nasal Cannula 2.0 28 Height (Feet): 5 Height (Inches): 7.00 Weight (Pounds): 156 Objective Drains: none Cardiovascular: RSR Respiratory: clear Abdomen: soft, flat, non-tender, present bowel sounds Extremities: no tenderness, no cyanosis Laboratory Tests Test 04/30/18 07:56 White Blood Count 17.5 K/UL (4.8-10.8) H Red Blood Count 3.21 M/UL (4.70-6.10) L Hemoglobin 9.5 G/DL (14.2-18.0) L Hematocrit 28.6 % (42.0-52.0) L Mean Corpuscular Volume 89 FL (80-99) Mean Corpuscular Hemoglobin 29.7 PG (27.0-31.0) Mean Corpuscular Hemoglobin Concent 33.4 G/DL (32.0-36.0) Red Cell Distribution Width 15.5 % (11.6-14.8) H Platelet Count 200 K/UL (150-450) Mean Platelet Volume 6.2 FL (6.5-10.1) L Neutrophils (%) (Auto) % (45.0-75.0) Lymphocytes (%) (Auto) % (20.0-45.0) Monocytes (%) (Auto) % (1.0-10.0) Eosinophils (%) (Auto) % (0.0-3.0) Basophils (%) (Auto) % (0.0-2.0) Differential Total Cells Counted 100 Neutrophils % (Manual) 89 % (45-75) H Lymphocytes % (Manual) 2 % (20-45) L Monocytes % (Manual) 6 % (1-10) Eosinophils % (Manual) 3 % (0-3) Basophils % (Manual) 0 % (0-2) Band Neutrophils 0 % (0-8) Platelet Estimate Adequate Platelet Morphology Normal Anisocytosis 1+ Sodium Level 134 MMOL/L (136-145) L Potassium Level 3.4 MMOL/L (3.5-5.1) L Chloride Level 99 MMOL/L (98-107) Carbon Dioxide Level 25 MMOL/L (21-32) Anion Gap 11 mmol/L (5-15) Blood Urea Nitrogen 12 mg/dL (7-18) Creatinine 1.3 MG/DL (0.55-1.30) Estimat Glomerular Filtration Rate mL/min (>60) Glucose Level 110 MG/DL (74-106) H Calcium Level 9.1 MG/DL (8.5-10.1) Current Medications Medications (Trade) Dose Ordered Sig/Amish Route PRN Reason Start Time Stop Time Status Last Admin Dose Admin Aspirin (ASA) 81 mg DAILY ORAL 04/26/18 09:00 05/26/18 08:59 04/30/18 08:51 Atorvastatin Calcium (Lipitor) 80 mg BEDTIME ORAL 04/26/18 21:00 05/26/18 20:59 04/29/18 20:44 Bisacodyl (Dulcolax) 10 mg DAILYPRN PRN RECTAL Constipation 04/26/18 02:30 05/26/18 02:29 04/27/18 21:06 Calcium Carbonate (Tums) 250 mg Q4H PRN ORAL Nausea & Vomiting 04/26/18 06:30 05/26/18 02:29 04/29/18 01:45 Cetirizine HCl (ZyrTEC) 10 mg DAILY ORAL 04/26/18 09:00 05/26/18 08:59 04/30/18 08:50 Cyanocobalamin (Vitamin B-12) 500 mcg DAILY ORAL 04/26/18 09:00 05/26/18 08:59 04/30/18 08:50 Dextrose/Sodium Chloride 1,000 ml @ 60 mls/hr [id number] IV 04/26/18 02:15 05/26/18 02:14 04/30/18 05:50 Docusate Sodium (Colace) 100 mg TWICE A DAY ORAL 04/26/18 09:00 05/26/18 08:59 04/30/18 08:51 Doxazosin Mesylate (Cardura) 4 mg BEDTIME ORAL 04/26/18 21:00 05/26/18 20:59 04/29/18 20:44 Ferrous Sulfate (Feosol) 325 mg THREE TIMES A DAY ORAL 04/28/18 18:00 05/26/18 08:59 04/30/18 08:50 Heparin Sodium (Porcine) (Heparin 5000 units/ml) 5,000 units EVERY 12 HOURS SUBQ 04/26/18 09:00 05/26/18 08:59 04/30/18 08:52 Iopamidol (Isovue-300 100ml) 100 ml NOW PRN INJ Radiology Procedure 04/25/18 19:30 Iron Sucrose 100 mg/Sodium Chloride 60 ml @ 240 mls/hr BEDTIME IVPB 04/29/18 21:00 05/03/18 21:14 04/29/18 20:46 Lactulose (Cephulac) 20 gm THREE TIMES A DAY ORAL 04/27/18 09:00 05/26/18 08:59 04/30/18 08:50 Lorazepam (Ativan) 1 mg Q6H PRN ORAL For Anxiety 04/30/18 08:15 05/07/18 08:14 Losartan Potassium (Cozaar) 50 mg DAILY ORAL 04/26/18 09:00 05/26/18 08:59 04/30/18 08:51 Magnesium Hydroxide (Mom) 30 ml HSPRN PRN ORAL Constipation 04/26/18 02:30 05/26/18 02:29 Meclizine HCl (Antivert) 25 mg Q8H PRN ORAL for dizziness 04/26/18 02:30 05/26/18 02:29 Memantine (Namenda) 5 mg BID ORAL 04/26/18 18:00 05/26/18 17:59 04/30/18 08:51 Morphine Sulfate (Morphine Sulfate) 2 mg Q4H PRN IVP For Pain 04/26/18 02:15 05/03/18 02:14 04/29/18 10:35 Olanzapine (ZyPREXA Zydis) 5 mg BID ORAL 04/26/18 18:00 05/26/18 17:59 04/30/18 08:50 Ondansetron HCl (Zofran) 4 mg Q4H PRN IVP Nausea & Vomiting 04/26/18 02:15 05/26/18 02:14 04/29/18 18:34 Pantoprazole (Protonix) 40 mg ACBREAKFAST ORAL 04/26/18 06:30 05/26/18 06:29 04/30/18 05:46 Piperacillin Sod/ Tazobactam Sod 3.375 gm/Dextrose 110 ml @ 27.5 mls/hr EVERY 8 HOURS IVPB 04/26/18 11:30 05/01/18 11:29 04/30/18 05:46 Polyethylene Glycol (Miralax) 17 gm BEDTIME ORAL 04/26/18 21:00 05/26/18 20:59 04/29/18 20:45 Sennosides (Senokot) 17.2 mg BEDTIME ORAL 04/26/18 21:00 05/26/18 20:59 04/29/18 20:44 Sodium Phosphate (Fleet's Sodium Phosl Enema) 133 ml QOD PRN RECTAL Constipation 04/26/18 02:30 05/26/18 02:29 04/28/18 02:21 Sucralfate (Carafate) 1 gm FOUR TIMES A DAY ORAL 04/29/18 13:00 05/29/18 12:59 04/30/18 08:51 Tiotropium [place] (Spiriva Inhaler) 1 puff DAILY INH 04/26/18 09:00 05/26/18 08:59 04/30/18 08:11 Vitamin D (Vitamin D) 400 intlu DAILY ORAL 04/26/18 09:00 05/26/18 08:59 04/30/18 08:50 Paula Light M.D. Apr 30, 2018 11:38
--- NOTE | 2018-04-30 11:49 | GI Progress Note ---
Assessment/Plan Problems: (1) Intractable vomiting ICD Codes: R11.10 - Vomiting, unspecified SNOMED: 572737093, 679149545 Qualifiers: Qualified Codes: R11.2 - Nausea with vomiting, unspecified (2) GERD (gastroesophageal reflux disease) ICD Codes: K21.9 - Gastro-esophageal reflux disease without esophagitis SNOMED: 067837068 (3) Fecal impaction ICD Codes: K56.41 - Fecal impaction SNOMED: 69732836 (4) Anemia ICD Codes: D64.9 - Anemia, unspecified SNOMED: 023476576 (5) Abdominal pain ICD Codes: R10.9 - Unspecified abdominal pain SNOMED: 74251377, 784109594 Qualifiers: Qualified Codes: R10.13 - Epigastric pain (6) Constipation ICD Codes: K59.00 - Constipation, unspecified SNOMED: 82703182 (7) Severe protein-calorie malnutrition ICD Codes: E43 - Unspecified severe protein-calorie malnutrition SNOMED: 364136527 Status: stable Status Narrative Discussed with Dr. Sy Assessment/Plan SUMMARY OF FINDINGS: 1. Large hiatal hernia. 2. Minimum distal esophagitis. 3. Gastritis, status post biopsy. RECOMMENDATIONS: 1. Follow up biopsy results. 2. Monitor hemoglobin and hematocrit. Transfuse as needed. 3. Continue on PPI daily given esophagitis. 4. Start diet and advance as tolerated. 5. The patient may benefit from colonoscopy if needed. We will follow closely and make that recommendation later. The patient was seen and examined at bedside and all new and available data was reviewed in the patients chart. I agree with the above findings, impression and plan. (Patient seen earlier today. Signature stamp does not reflect patient encounter time.). - Gonzales Sy MD Subjective Gastrointestinal/Abdominal: Reports: no symptoms Objective Last 24 Hour Vital Signs Date Time Temp Pulse Resp B/P (MAP) Pulse Ox O2 Delivery O2 Flow Rate FiO2 04/30/18 09:00 Nasal Cannula 2.0 04/30/18 08:51 121/59 04/30/18 08:17 Nasal Cannula 2.0 28 04/30/18 08:16 95 Nasal Cannula 2.0 28 04/30/18 08:15 71 20 95 Nasal Cannula 2.0 28 04/30/18 08:11 71 20 95 Nasal Cannula 2.0 28 04/30/18 08:00 96.6 62 19 121/59 (79) 93 04/30/18 00:00 96.8 65 19 122/53 (76) 91 04/29/18 21:00 Nasal Cannula 2.0 04/29/18 20:00 97.9 20 116/66 (83) 95 04/29/18 19:49 97 Nasal Cannula 2.0 28 04/29/18 19:49 Nasal Cannula 2.0 28 Intake and Output 04/29/18 04/30/18 19:00 07:00 Intake Total 377.5 ml 197.5 ml Output Total 800 ml Balance -422.5 ml 197.5 ml IV Total 377.5 ml 197.5 ml Output Urine Total 200 ml Emesis 600 ml # Voids 1 # Bowel Movements 1 Laboratory Tests Test 04/30/18 07:56 White Blood Count 17.5 K/UL (4.8-10.8) H Red Blood Count 3.21 M/UL (4.70-6.10) L Hemoglobin 9.5 G/DL (14.2-18.0) L Hematocrit 28.6 % (42.0-52.0) L Mean Corpuscular Volume 89 FL (80-99) Mean Corpuscular Hemoglobin 29.7 PG (27.0-31.0) Mean Corpuscular Hemoglobin Concent 33.4 G/DL (32.0-36.0) Red Cell Distribution Width 15.5 % (11.6-14.8) H Platelet Count 200 K/UL (150-450) Mean Platelet Volume 6.2 FL (6.5-10.1) L Neutrophils (%) (Auto) % (45.0-75.0) Lymphocytes (%) (Auto) % (20.0-45.0) Monocytes (%) (Auto) % (1.0-10.0) Eosinophils (%) (Auto) % (0.0-3.0) Basophils (%) (Auto) % (0.0-2.0) Differential Total Cells Counted 100 Neutrophils % (Manual) 89 % (45-75) H Lymphocytes % (Manual) 2 % (20-45) L Monocytes % (Manual) 6 % (1-10) Eosinophils % (Manual) 3 % (0-3) Basophils % (Manual) 0 % (0-2) Band Neutrophils 0 % (0-8) Platelet Estimate Adequate Platelet Morphology Normal Anisocytosis 1+ Sodium Level 134 MMOL/L (136-145) L Potassium Level 3.4 MMOL/L (3.5-5.1) L Chloride Level 99 MMOL/L (98-107) Carbon Dioxide Level 25 MMOL/L (21-32) Anion Gap 11 mmol/L (5-15) Blood Urea Nitrogen 12 mg/dL (7-18) Creatinine 1.3 MG/DL (0.55-1.30) Estimat Glomerular Filtration Rate mL/min (>60) Glucose Level 110 MG/DL (74-106) H Calcium Level 9.1 MG/DL (8.5-10.1) Height (Feet): 5 Height (Inches): 7.00 Weight (Pounds): 156 General Appearance: WD/WN, no apparent distress, alert Cardiovascular: normal rate Respiratory/Chest: normal breath sounds, no respiratory distress Abdominal Exam: normal bowel sounds, non tender, soft Extremities: normal range of motion, non-tender Gail Streeter NP Apr 30, 2018 11:48
[2018-04-30 12:00] VITALS: BP 101/53
--- NOTE | 2018-04-30 12:27 | Cardiac Electrophysiology PN ---
Assessment/Plan Assessment/Plan 1. HTN, stable off prn meds 2. COPD 3. Intractable vomiting Fu Dr Sy 4. Chest pain, atypical angina 5. DM2, DW RN Subjective Subjective Feeling weak. No CP or SOB. Objective Last 24 Hour Vital Signs Date Time Temp Pulse Resp B/P (MAP) Pulse Ox O2 Delivery O2 Flow Rate FiO2 04/30/18 09:00 Nasal Cannula 2.0 04/30/18 08:51 121/59 04/30/18 08:17 Nasal Cannula 2.0 28 04/30/18 08:16 95 Nasal Cannula 2.0 28 04/30/18 08:15 71 20 95 Nasal Cannula 2.0 28 04/30/18 08:11 71 20 95 Nasal Cannula 2.0 28 04/30/18 08:00 96.6 62 19 121/59 (79) 93 04/30/18 00:00 96.8 65 19 122/53 (76) 91 04/29/18 21:00 Nasal Cannula 2.0 04/29/18 20:00 97.9 20 116/66 (83) 95 04/29/18 19:49 97 Nasal Cannula 2.0 28 04/29/18 19:49 Nasal Cannula 2.0 28 Intake and Output 04/29/18 04/30/18 19:00 07:00 Intake Total 377.5 ml 197.5 ml Output Total 800 ml Balance -422.5 ml 197.5 ml IV Total 377.5 ml 197.5 ml Output Urine Total 200 ml Emesis 600 ml # Voids 1 # Bowel Movements 1 Laboratory Tests Test 04/30/18 07:56 White Blood Count 17.5 K/UL (4.8-10.8) H Red Blood Count 3.21 M/UL (4.70-6.10) L Hemoglobin 9.5 G/DL (14.2-18.0) L Hematocrit 28.6 % (42.0-52.0) L Mean Corpuscular Volume 89 FL (80-99) Mean Corpuscular Hemoglobin 29.7 PG (27.0-31.0) Mean Corpuscular Hemoglobin Concent 33.4 G/DL (32.0-36.0) Red Cell Distribution Width 15.5 % (11.6-14.8) H Platelet Count 200 K/UL (150-450) Mean Platelet Volume 6.2 FL (6.5-10.1) L Neutrophils (%) (Auto) % (45.0-75.0) Lymphocytes (%) (Auto) % (20.0-45.0) Monocytes (%) (Auto) % (1.0-10.0) Eosinophils (%) (Auto) % (0.0-3.0) Basophils (%) (Auto) % (0.0-2.0) Differential Total Cells Counted 100 Neutrophils % (Manual) 89 % (45-75) H Lymphocytes % (Manual) 2 % (20-45) L Monocytes % (Manual) 6 % (1-10) Eosinophils % (Manual) 3 % (0-3) Basophils % (Manual) 0 % (0-2) Band Neutrophils 0 % (0-8) Platelet Estimate Adequate Platelet Morphology Normal Anisocytosis 1+ Sodium Level 134 MMOL/L (136-145) L Potassium Level 3.4 MMOL/L (3.5-5.1) L Chloride Level 99 MMOL/L (98-107) Carbon Dioxide Level 25 MMOL/L (21-32) Anion Gap 11 mmol/L (5-15) Blood Urea Nitrogen 12 mg/dL (7-18) Creatinine 1.3 MG/DL (0.55-1.30) Estimat Glomerular Filtration Rate mL/min (>60) Glucose Level 110 MG/DL (74-106) H Calcium Level 9.1 MG/DL (8.5-10.1) Objective HEENT: No JVD Cardiovascular: normal peripheral pulses, normal rate, regular rhythm Respiratory/Chest: chest wall non-tender, lungs clear, normal breath sounds, no respiratory distress, no accessory muscle use Abdomen: normal bowel sounds, non tender, soft, no organomegaly Extremities: normal range of motion, non-tender, normal inspection, no calf tenderness, no swelling Ralph Loomis MD Apr 30, 2018 12:27
[2018-04-30] MEDS ORDERED: Vancomycin 1500mg IVPB SCH (12:30)
[2018-04-30] MEDS ORDERED: NS 275ml ONE (15:22)
[2018-04-30] MEDS ORDERED: D5 1/2NS 1000ml IV ONE (15:22)
[2018-04-30 16:00] VITALS: BP 110/52
[2018-04-30 20:00] VITALS: BP 90/41
--- NOTE | 2018-04-30 20:15 | Progress Note ---
DATE: 04/30/2018 SUBJECTIVE: This is a male patient who is 83 years old. This patient has vomiting and abdominal pain that is why he was admitted to the hospital. He has confusion, altered mental status, and mood lability worsened by stress of his medical illness that is why his attending has requested daily psychiatric consultation for this patient. Because of his mood lability, attending has requested daily psychiatric consultation, altered mental status, and decline in cognition below baseline. I saw and assessed the patient at bedside, still very confused and disorganized, mood labile. MENTAL STATUS EXAMINATION: An 83-year-old male. Appearance is disheveled. Attitude, irritable and agitated. Affect guarded and restricted. Intellect poor. Mood depressed and anxious. Motor activity, psychomotor agitation. Attention span is poor. Orientation x2. Speech is low volume and slurred. Thought process, disorganized and illogical. Thought content, the patient has auditory hallucinations and paranoid delusions. Insight and judgment is poor. He has lot of psychomotor agitation. DIAGNOSES: Paranoid schizophrenia with acute exacerbation, rule out dementia with psychosis. PLAN: Treat with Namenda 5 mg twice a day, Zyprexa 5 twice a day, and Ativan, but I am going to titrate up on his Ativan to reduce irritability. He has frequent bouts of agitation, irritability, so I am going to adjust his Ativan to high frequency mg every 6 hours p.r.n. anxiety and agitation. Provide him with 20 minutes of cognitive behavioral therapy to help him identify his automatic negative thoughts to help him convert those negative thoughts to more positive thinking to reduce depression, anxiety, and suicidality. 20 minutes of cognitive behavioral therapy to help have him more adaptive behavioral pattern psychomotor agitation, irritability. Chart reviewed and discussed with staff. Seen and assessed at bedside. Continued to be followed by Psychiatry the attending physician. Darrick Robert M.D. DR: Nolan JOB#: [id number] CC:
[2018-04-30] MEDS: Doxazosin 4mg tab ORAL SCH (21:00)
[2018-04-30] MEDS ORDERED: Albuterol/Ipratropium 3ml neb HHN PRN (21:00)
[2018-04-30] MEDS: Iron Sucrose 100 MG in NS 55 ML IVPB SCH (21:00)
[2018-04-30] MEDS: Sennosides 8.6mg tab ORAL SCH (21:00)
[2018-04-30] MEDS: Atorvastatin 80mg tab ORAL SCH (21:00)
[2018-04-30] MEDS: Miralax 17gm pkt ORAL SCH (21:00)
[2018-04-30] MEDS ORDERED: Albumin Human 5% 250ml IV ONE (21:15)
[2018-04-30] MEDS ORDERED: Albumin Human 5% 500ml IV ONE (22:00)
[2018-05-01] VITALS: BP 90/36
[2018-05-01] MEDS: Piperacillin/Tazobactam 3.375 GM in D5W 110 ML IVPB SCH ×4 (01:55→22:20)
[2018-05-01] MEDS: D5 1/2NS 1,000 ML IV SCH (01:55)
[2018-05-01 04:00] VITALS: BP 95/45
--- NOTE | 2018-05-01 08:44 | General Progress Note ---
Assessment/Plan Status: stable Assessment/Plan Covering for Kaitlin Joseph # Anemia of iron deficiency is likely related to gi bleed --> anemia panel has been reviewed --> transfuse if hgb <7 --> iv iron has been started --> egd was completed and shows gastritis, distal esophagitis is on ppi --> Blood tx: 04/29, # Leukocytosis likely reactive process from anemia --> ID is following, appreciate rcs. --> Monitor and trend wbc for improvement --> WBC remains elevated --> Remains on abx. # GERD, continue on ppi # DM2, # HTN, # COPD # Emesis # Tachycardia # Chest pain, atypical angina Greatly appreciate consultation! Subjective Date patient seen: Apr 30, 2018 Hematologic/Lymphatic: Reports: anemia Allergies: Coded Allergies: RISPERIDONE (Verified Allergy, Intermediate, 04/27/16) All Systems: reviewed and negative except above Subjective 04/29: tolerating iv iron very well, h/h pending from today, will re-order cbc 04/30: Pt awake and alert. On NC. S/P blood tx, Hgb improved to 9.5. WBC remains elevated, afebrile, on abx. Objective Last 24 Hour Vital Signs Date Time Temp Pulse Resp B/P (MAP) Pulse Ox O2 Delivery O2 Flow Rate FiO2 05/01/18 06:50 94 Nasal Cannula 2.0 28 05/01/18 06:50 Nasal Cannula 2.0 28 05/01/18 04:00 96.4 101 16 95/45 (62) 96 05/01/18 00:00 97.3 60 15 90/36 (54) 04/30/18 21:00 Nasal Cannula 2.0 04/30/18 20:38 93 Nasal Cannula 2.0 28 04/30/18 20:38 Nasal Cannula 2.0 28 04/30/18 20:00 97.3 60 16 90/41 (57) 93 04/30/18 16:00 97.1 61 20 110/52 (71) 92 04/30/18 12:00 96.6 111 20 101/53 (69) 96 04/30/18 09:00 Nasal Cannula 2.0 04/30/18 08:51 121/59 Intake and Output 04/30/18 05/01/18 19:00 07:00 Intake Total 840 ml 1020 ml Balance 840 ml 1020 ml Intake Oral 480 ml IV Total 360 ml 1020 ml # Voids 4 1 # Bowel Movements 1 1 Laboratory Tests 04/30/18 21:30: Arterial Blood pH 7.376, Arterial Blood Partial Pressure CO2 38.5, Arterial Blood Partial Pressure O2 68.9L, Arterial Blood HCO3 22.1, Arterial Blood Oxygen Saturation 91.4L, Arterial Blood Base Excess -2.8L, Chuy Test Positive 05/01/18 08:01: White Blood Count [Pending], Red Blood Count [Pending], Hemoglobin [Pending], Hematocrit [Pending], Mean Corpuscular Volume [Pending], Mean Corpuscular Hemoglobin [Pending], Mean Corpuscular Hemoglobin Concent [Pending], Red Cell Distribution Width [Pending], Platelet Count [Pending], Mean Platelet Volume [ Pending], Neutrophils (%) (Auto) [Pending], Lymphocytes (%) (Auto) [Pending], Monocytes (%) (Auto) [Pending], Eosinophils (%) (Auto) [Pending], Basophils (%) (Auto) [Pending], Sodium Level [Pending], Potassium Level [Pending], Chloride Level [Pending], Carbon Dioxide Level [Pending], Blood Urea Nitrogen [Pending], Creatinine [Pending], Estimat Glomerular Filtration Rate [Pending], Glucose Level [Pending], Lactic Acid Level [Pending], Uric Acid [Pending], Calcium Level [Pending], Phosphorus Level [Pending], Magnesium Level [Pending], Total Bilirubin [Pending], Gamma Glutamyl Transpeptidase [Pending], Aspartate Amino Transf (AST/SGOT) [Pending], Alanine Aminotransferase (ALT/SGPT) [Pending], Alkaline Phosphatase [Pending], Troponin I [Pending], Pro-B-Type Natriuretic Peptide [Pending], Total Protein [Pending], Albumin [Pending], Globulin [Pending ], Coccidioides Antibody (Comp Fix) [Pending], Cryptococcus Antigen [Pending], HIV (1&2) Antibody Rapid [Pending] Height (Feet): 5 Height (Inches): 7.00 Weight (Pounds): 156 Nick Bishop MD May 01, 2018 08:44
[2018-05-01 08:47] LABS: HEMATOCRIT 23.7 % (42.0-52.0); HEMOGLOBIN 7.9 G/DL (14.2-18.0); MEAN CORPUSCULAR VOLUME 89 FL (80-99); PLATELET COUNT 224 K/UL (150-450); RED BLOOD COUNT 2.67 M/UL (4.70-6.10); RED CELL DISTRIBUTION WIDTH 16.2 % (11.6-14.8); WHITE BLOOD COUNT 17.1 K/UL (4.8-10.8)
[2018-05-01] MEDS: Vitamin D 400 INTLU TAB ORAL SCH ×2 (09:00→09:30)
[2018-05-01 09:15] LABS: ALANINE AMINOTRANSFERASE 12 U/L (12-78); ALBUMIN 2.2 G/DL (3.4-5.0); ALBUMIN/GLOBULIN RATIO 0.6 (1.0-2.7); ALKALINE PHOSPHATASE 89 U/L (46-116); ANION GAP 11 mmol/L (5-15); ASPARTATE AMINO TRANSFERASE 17 U/L (15-37); BILIRUBIN,TOTAL 0.6 MG/DL (0.2-1.0); BLOOD UREA NITROGEN 14 mg/dL (7-18); CALCIUM 8.8 MG/DL (8.5-10.1); CARBON DIOXIDE 24 MMOL/L (21-32); CHLORIDE 102 MMOL/L (98-107); CREATININE 1.8 MG/DL (0.55-1.30); GAMMA GLUTAMYL TRANSPEPTIDASE 41 U/L (5-85); PHOSPHORUS 3.3 MG/DL (2.5-4.9); POTASSIUM 2.9 MMOL/L (3.5-5.1); SODIUM 137 MMOL/L (136-145)
--- NOTE | 2018-05-01 09:18 | Diagnostic Imaging Report ---
Indication: Shortness of breath. Possible lung nodules noted on x-ray Technique: CT chest was performed utilizing automated exposure control without intravenous contrast material. Axial, sagittal and coronal images were generated. CT dose: Total DLP 582.35 mGycm; CTDI vol 14.61 mGy Comparison: None Findings: Severe diffuse emphysematous changes noted. There is a focal somewhat masslike opacity in the left upper lobe. A similar finding is noted in the medial left lower lobe. There are interstitial/linear opacities at the lung bases which may be related to atelectasis and/or scarring. There are scattered calcified granulomas. There is trace pleural effusion versus pleural thickening at the lung bases. There is no pneumothorax. Heart size within normal limits. No pericardial effusion. There are extensive coronary arterial calcifications. Atherosclerotic disease also noted within the thoracic and visualized portions of the proximal abdominal aorta, which are not aneurysmally dilated. Main pulmonary artery within the upper limits for normal size. There are multiple calcified mediastinal and hilar lymph nodes. Imaged portions of the thyroid unremarkable. Multiple calcifications noted in the spleen. There is nonspecific distention of the stomach with ingested material and gas. There is interposition of portions of the colon anterior to the liver. There are multilevel degenerative changes of the spine. No acute osseous normality identified. IMPRESSION: Severe emphysema with masslike opacity in the left upper lobe and nodular opacity in the medial left lower lobe. Findings may be related to pneumonia although underlying scarring/fibrotic change or neoplasm/malignancy cannot be excluded. Recommend clinical correlation and short-term interval follow-up imaging after appropriate treatment to assess for resolution. Evidence of prior granulomatous exposure with scattered calcified granulomas and calcified hilar or mediastinal lymph nodes. Trace pleural effusions versus pleural thickening. Atherosclerosis and coronary artery disease. The CT scanner at [facility] is accredited by the [employer] and the scans are performed using protocols designed to limit radiation exposure to as low as reasonably achievable to attain images of sufficient resolution adequate for diagnostic evaluation.
[2018-05-01] MEDS: Docusate 100mg cap ORAL SCH ×3 (09:29→18:25)
[2018-05-01] MEDS: Lactulose 10gm/15ml UDC ORAL SCH ×4 (09:29→18:00)
[2018-05-01] MEDS: Vitamin B-12 500mcg tab ORAL SCH ×2 (09:29→09:40)
[2018-05-01] MEDS: Sucralfate 1gm tab ORAL SCH (09:30)
[2018-05-01] MEDS: Aspirin Baby 81mg ORAL SCH (09:30)
[2018-05-01] MEDS: Memantine 5 MG TAB ORAL SCH ×3 (09:30→18:25)
[2018-05-01] MEDS: ZyPREXA Zydis 5mg tab ORAL SCH ×3 (09:30→18:25)
[2018-05-01] MEDS: Heparin 5000 units/ml inj SUBQ SCH ×2 (09:31→20:28)
--- NOTE | 2018-05-01 10:16 | Consultation ---
Consult Note Assessment/Plan DICT # [id number] Ollie Sánchez MD May 01, 2018 10:16
--- NOTE | 2018-05-01 10:44 | Cardiac Electrophysiology PN ---
Assessment/Plan Assessment/Plan 1. HTN, stable off prn meds 2. COPD, PNA on Vanco and Zosyn and nasal cannula. FU DR Sánchez 3. Intractable vomiting Fu Dr Sy 4. Chest pain, atypical angina 5. DM2 DW RN Subjective Subjective Feeling weak and SOB on Nasal cannula. Objective Last 24 Hour Vital Signs Date Time Temp Pulse Resp B/P (MAP) Pulse Ox O2 Delivery O2 Flow Rate FiO2 05/01/18 09:31 88 18 94 Nasal Cannula 2.0 05/01/18 09:31 88 18 94 Nasal Cannula 2.0 05/01/18 09:00 Nasal Cannula 2.0 05/01/18 06:50 94 Nasal Cannula 2.0 05/01/18 06:50 Nasal Cannula 2.0 05/01/18 04:00 96.4 101 16 95/45 (62) 96 05/01/18 00:00 97.3 60 15 90/36 (54) 04/30/18 21:00 Nasal Cannula 2.0 04/30/18 20:38 93 Nasal Cannula 2.0 28 04/30/18 20:38 Nasal Cannula 2.0 28 04/30/18 20:00 97.3 60 16 90/41 (57) 93 04/30/18 16:00 97.1 61 20 110/52 (71) 92 04/30/18 12:00 96.6 111 20 101/53 (69) 96 Intake and Output 04/30/18 05/01/18 19:00 07:00 Intake Total 840 ml 1020 ml Balance 840 ml 1020 ml Intake Oral 480 ml IV Total 360 ml 1020 ml # Voids 4 1 # Bowel Movements 1 1 Laboratory Tests Test 04/30/18 21:30 05/01/18 08:01 Arterial Blood pH 7.376 (7.350-7.450) Arterial Blood Partial Pressure CO2 38.5 mmHg (35.0-45.0) Arterial Blood Partial Pressure O2 68.9 mmHg (75.0-100.0) L Arterial Blood HCO3 22.1 mmol/L (22.0-26.0) Arterial Blood Oxygen Saturation 91.4 % (95-100) L Arterial Blood Base Excess -2.8 (-2-2) L Chuy Test Positive White Blood Count 17.1 K/UL (4.8-10.8) H Red Blood Count 2.67 M/UL (4.70-6.10) L Hemoglobin 7.9 G/DL (14.2-18.0) L Hematocrit 23.7 % (42.0-52.0) L Mean Corpuscular Volume 89 FL (80-99) Mean Corpuscular Hemoglobin 29.5 PG (27.0-31.0) Mean Corpuscular Hemoglobin Concent 33.3 G/DL (32.0-36.0) Red Cell Distribution Width 16.2 % (11.6-14.8) H Platelet Count 224 K/UL (150-450) Mean Platelet Volume 6.6 FL (6.5-10.1) Neutrophils (%) (Auto) % (45.0-75.0) Lymphocytes (%) (Auto) % (20.0-45.0) Monocytes (%) (Auto) % (1.0-10.0) Eosinophils (%) (Auto) % (0.0-3.0) Basophils (%) (Auto) % (0.0-2.0) Differential Total Cells Counted 100 Neutrophils % (Manual) 90 % (45-75) H Lymphocytes % (Manual) 2 % (20-45) L Monocytes % (Manual) 7 % (1-10) Eosinophils % (Manual) 1 % (0-3) Basophils % (Manual) 0 % (0-2) Band Neutrophils 0 % (0-8) Platelet Estimate Adequate Platelet Morphology Normal Hypochromasia 1+ Anisocytosis 1+ Sodium Level 137 MMOL/L (136-145) Potassium Level 2.9 MMOL/L (3.5-5.1) L Chloride Level 102 MMOL/L (98-107) Carbon Dioxide Level 24 MMOL/L (21-32) Anion Gap 11 mmol/L (5-15) Blood Urea Nitrogen 14 mg/dL (7-18) Creatinine 1.8 MG/DL (0.55-1.30) H Estimat Glomerular Filtration Rate mL/min (>60) Glucose Level 130 MG/DL (74-106) H Lactic Acid Level 1.00 mmol/L (0.4-2.0) Uric Acid 4.1 MG/DL (2.6-7.2) Calcium Level 8.8 MG/DL (8.5-10.1) Phosphorus Level 3.3 MG/DL (2.5-4.9) Magnesium Level 2.0 MG/DL (1.8-2.4) Total Bilirubin 0.6 MG/DL (0.2-1.0) Gamma Glutamyl Transpeptidase 41 U/L (5-85) Aspartate Amino Transf (AST/SGOT) 17 U/L (15-37) Alanine Aminotransferase (ALT/SGPT) 12 U/L (12-78) Alkaline Phosphatase 89 U/L (46-116) Lactate Dehydrogenase Pending Troponin I 0.047 ng/mL (0.000-0.056) Pro-B-Type Natriuretic Peptide 46904 pg/mL (0-125) H Total Protein 6.2 G/DL (6.4-8.2) L Albumin 2.2 G/DL (3.4-5.0) L Globulin 4.0 g/dL Albumin/Globulin Ratio 0.6 (1.0-2.7) L Carcinoembryonic Antigen Pending Coccidioides Antibody (Comp Fix) Pending Cryptococcus Antigen Pending HIV (1&2) Antibody Rapid Negative (NEGATIVE) Objective HEENT: No JVD . Nasal Cannula is on Cardiovascular: normal peripheral pulses, normal rate, regular rhythm Respiratory/Chest: Coarse rhonchi Abdomen: normal bowel sounds, non tender, soft, no organomegaly Extremities: no swelling Ralph Loomis MD May 01, 2018 10:44
--- NOTE | 2018-05-01 10:46 | Consultation ---
Consult Note Consult Note asked to eval for low bp and rise in Cr Patient poor historian and weak appearing examined data reviewed Allergies: RISPERIDONE (Verified Allergy, Intermediate, 04/27/16) Past Medical History: DM, HTN, GERD Social History: Denies: smoking, alcohol use, drug use Immunizations: UTD Reviewed Nursing Documentation: PMH: Agreed; PSxH: Agreed Past Medical History Deferred: Patient Unconscious Hx Cardiac Problems: No Hx Hypertension: Yes Hx COPD: Yes - pneumonia. Hx Diabetes: Yes - DIAB Hx Cancer: No Hx Gastrointestinal Problems: Yes - GERD Hx Neurological Problems: Yes - DEP Assessment/Plan episode of Low BP leading to rise of Cr 1.3 to 1.8 - Acute renal failure- Anemia Hypokalemia HypoAlbuminemia Urine studies fluid ramiro Cortés Monitor renal parameters Cheo Balderrama MD May 01, 2018 10:46
[2018-05-01] MEDS ORDERED: Sodium Chloride 500ML 500 ML IV ONE (11:00)
[2018-05-01] MEDS: Vancomycin 1250mg/D5W 250ml IVPB SCH (11:18)
[2018-05-01] MEDS: Morphine Sulfate 2mg/ml Inj IVP PRN (11:29)
--- NOTE | 2018-05-01 11:38 | GI Progress Note ---
Assessment/Plan Problems: (1) Intractable vomiting ICD Codes: R11.10 - Vomiting, unspecified SNOMED: 096081345, 353178546 Qualifiers: Qualified Codes: R11.2 - Nausea with vomiting, unspecified (2) GERD (gastroesophageal reflux disease) ICD Codes: K21.9 - Gastro-esophageal reflux disease without esophagitis SNOMED: 484972977 (3) Fecal impaction ICD Codes: K56.41 - Fecal impaction SNOMED: 23490553 (4) Anemia ICD Codes: D64.9 - Anemia, unspecified SNOMED: 557761647 (5) Abdominal pain ICD Codes: R10.9 - Unspecified abdominal pain SNOMED: 72274450, 613806395 Qualifiers: Qualified Codes: R10.13 - Epigastric pain (6) Constipation ICD Codes: K59.00 - Constipation, unspecified SNOMED: 26169066 (7) Severe protein-calorie malnutrition ICD Codes: E43 - Unspecified severe protein-calorie malnutrition SNOMED: 601016316 Status: stable Status Narrative Discussed with Dr. Sy Assessment/Plan SUMMARY OF FINDINGS: 1. Large hiatal hernia. 2. Minimum distal esophagitis. 3. Gastritis, status post biopsy. RECOMMENDATIONS: 1. Follow up biopsy results. 2. Monitor hemoglobin and hematocrit. Transfuse as needed. 3. Continue on PPI daily given esophagitis. 4. Start diet and advance as tolerated. 5. The patient may benefit from colonoscopy if needed. We will follow closely and make that recommendation later. DC planning The patient was seen and examined at bedside and all new and available data was reviewed in the patients chart. I agree with the above findings, impression and plan. (Patient seen earlier today. Signature stamp does not reflect patient encounter time.). - Gonzales Sy MD Subjective Subjective Abdominal pain resolved Objective Last 24 Hour Vital Signs Date Time Temp Pulse Resp B/P (MAP) Pulse Ox O2 Delivery O2 Flow Rate FiO2 05/01/18 09:31 88 18 94 Nasal Cannula 2.0 05/01/18 09:31 88 18 94 Nasal Cannula 2.0 05/01/18 09:00 Nasal Cannula 2.0 05/01/18 06:50 94 Nasal Cannula 2.0 28 05/01/18 06:50 Nasal Cannula 2.0 05/01/18 04:00 96.4 101 16 95/45 (62) 96 05/01/18 00:00 97.3 60 15 90/36 (54) 04/30/18 21:00 Nasal Cannula 2.0 04/30/18 20:38 93 Nasal Cannula 2.0 28 04/30/18 20:38 Nasal Cannula 2.0 28 04/30/18 20:00 97.3 60 16 90/41 (57) 93 04/30/18 16:00 97.1 61 20 110/52 (71) 92 04/30/18 12:00 96.6 111 20 101/53 (69) 96 Intake and Output 04/30/18 05/01/18 19:00 07:00 Intake Total 840 ml 1020 ml Balance 840 ml 1020 ml Intake Oral 480 ml IV Total 360 ml 1020 ml # Voids 4 1 # Bowel Movements 1 1 Laboratory Tests Test 04/30/18 21:30 05/01/18 08:01 Arterial Blood pH 7.376 (7.350-7.450) Arterial Blood Partial Pressure CO2 38.5 mmHg (35.0-45.0) Arterial Blood Partial Pressure O2 68.9 mmHg (75.0-100.0) L Arterial Blood HCO3 22.1 mmol/L (22.0-26.0) Arterial Blood Oxygen Saturation 91.4 % (95-100) L Arterial Blood Base Excess -2.8 (-2-2) L Chuy Test Positive White Blood Count 17.1 K/UL (4.8-10.8) H Red Blood Count 2.67 M/UL (4.70-6.10) L Hemoglobin 7.9 G/DL (14.2-18.0) L Hematocrit 23.7 % (42.0-52.0) L Mean Corpuscular Volume 89 FL (80-99) Mean Corpuscular Hemoglobin 29.5 PG (27.0-31.0) Mean Corpuscular Hemoglobin Concent 33.3 G/DL (32.0-36.0) Red Cell Distribution Width 16.2 % (11.6-14.8) H Platelet Count 224 K/UL (150-450) Mean Platelet Volume 6.6 FL (6.5-10.1) Neutrophils (%) (Auto) % (45.0-75.0) Lymphocytes (%) (Auto) % (20.0-45.0) Monocytes (%) (Auto) % (1.0-10.0) Eosinophils (%) (Auto) % (0.0-3.0) Basophils (%) (Auto) % (0.0-2.0) Differential Total Cells Counted 100 Neutrophils % (Manual) 90 % (45-75) H Lymphocytes % (Manual) 2 % (20-45) L Monocytes % (Manual) 7 % (1-10) Eosinophils % (Manual) 1 % (0-3) Basophils % (Manual) 0 % (0-2) Band Neutrophils 0 % (0-8) Platelet Estimate Adequate Platelet Morphology Normal Hypochromasia 1+ Anisocytosis 1+ Sodium Level 137 MMOL/L (136-145) Potassium Level 2.9 MMOL/L (3.5-5.1) L Chloride Level 102 MMOL/L (98-107) Carbon Dioxide Level 24 MMOL/L (21-32) Anion Gap 11 mmol/L (5-15) Blood Urea Nitrogen 14 mg/dL (7-18) Creatinine 1.8 MG/DL (0.55-1.30) H Estimat Glomerular Filtration Rate mL/min (>60) Glucose Level 130 MG/DL (74-106) H Lactic Acid Level 1.00 mmol/L (0.4-2.0) Uric Acid 4.1 MG/DL (2.6-7.2) Calcium Level 8.8 MG/DL (8.5-10.1) Phosphorus Level 3.3 MG/DL (2.5-4.9) Magnesium Level 2.0 MG/DL (1.8-2.4) Total Bilirubin 0.6 MG/DL (0.2-1.0) Gamma Glutamyl Transpeptidase 41 U/L (5-85) Aspartate Amino Transf (AST/SGOT) 17 U/L (15-37) Alanine Aminotransferase (ALT/SGPT) 12 U/L (12-78) Alkaline Phosphatase 89 U/L (46-116) Lactate Dehydrogenase 283 U/L (81-234) H Troponin I 0.047 ng/mL (0.000-0.056) Pro-B-Type Natriuretic Peptide 39774 pg/mL (0-125) H Total Protein 6.2 G/DL (6.4-8.2) L Albumin 2.2 G/DL (3.4-5.0) L Globulin 4.0 g/dL Albumin/Globulin Ratio 0.6 (1.0-2.7) L Triglycerides Level Pending Cholesterol Level Pending LDL Cholesterol Pending HDL Cholesterol Pending Cholesterol/HDL Ratio Pending Carcinoembryonic Antigen Pending Coccidioides Antibody (Comp Fix) Pending Cryptococcus Antigen Pending HIV (1&2) Antibody Rapid Negative (NEGATIVE) Height (Feet): 5 Height (Inches): 7.00 Weight (Pounds): 156 General Appearance: WD/WN, no apparent distress, alert, thin Cardiovascular: normal rate Respiratory/Chest: normal breath sounds, no respiratory distress Abdominal Exam: normal bowel sounds, non tender, soft Extremities: non-tender Gail Streeter NP May 01, 2018 11:38
[2018-05-01 12:00] VITALS: BP 116/64
--- NOTE | 2018-05-01 12:43 | General Surgery Progress Note ---
General Surgery-Progress Note Subjective Symptoms: improved, pain absent, tolerating diet, passing flatus Objective Last 24 Hour Vital Signs Date Time Temp Pulse Resp B/P (MAP) Pulse Ox O2 Delivery O2 Flow Rate FiO2 05/01/18 12:00 97.1 97 19 116/64 (81) 97 05/01/18 09:31 88 18 94 Nasal Cannula 2.0 28 05/01/18 09:31 88 18 94 Nasal Cannula 2.0 28 05/01/18 09:00 Nasal Cannula 2.0 05/01/18 06:50 94 Nasal Cannula 2.0 28 05/01/18 06:50 Nasal Cannula 2.0 28 05/01/18 04:00 96.4 101 16 95/45 (62) 96 05/01/18 00:00 97.3 60 15 90/36 (54) 04/30/18 21:00 Nasal Cannula 2.0 04/30/18 20:38 93 Nasal Cannula 2.0 28 04/30/18 20:38 Nasal Cannula 2.0 28 04/30/18 20:00 97.3 60 16 90/41 (57) 93 04/30/18 16:00 97.1 61 20 110/52 (71) 92 I&O Intake and Output 04/30/18 05/01/18 19:00 07:00 Intake Total 840 ml 1020 ml Balance 840 ml 1020 ml Intake Oral 480 ml IV Total 360 ml 1020 ml # Voids 4 1 # Bowel Movements 1 1 Drains: none Cardiovascular: RSR Respiratory: clear Abdomen: soft, flat, non-tender, present bowel sounds Extremities: no cyanosis Laboratory Tests Test 04/30/18 21:30 05/01/18 08:01 Arterial Blood pH 7.376 (7.350-7.450) Arterial Blood Partial Pressure CO2 38.5 mmHg (35.0-45.0) Arterial Blood Partial Pressure O2 68.9 mmHg (75.0-100.0) L Arterial Blood HCO3 22.1 mmol/L (22.0-26.0) Arterial Blood Oxygen Saturation 91.4 % (95-100) L Arterial Blood Base Excess -2.8 (-2-2) L Chuy Test Positive White Blood Count 17.1 K/UL (4.8-10.8) H Red Blood Count 2.67 M/UL (4.70-6.10) L Hemoglobin 7.9 G/DL (14.2-18.0) L Hematocrit 23.7 % (42.0-52.0) L Mean Corpuscular Volume 89 FL (80-99) Mean Corpuscular Hemoglobin 29.5 PG (27.0-31.0) Mean Corpuscular Hemoglobin Concent 33.3 G/DL (32.0-36.0) Red Cell Distribution Width 16.2 % (11.6-14.8) H Platelet Count 224 K/UL (150-450) Mean Platelet Volume 6.6 FL (6.5-10.1) Neutrophils (%) (Auto) % (45.0-75.0) Lymphocytes (%) (Auto) % (20.0-45.0) Monocytes (%) (Auto) % (1.0-10.0) Eosinophils (%) (Auto) % (0.0-3.0) Basophils (%) (Auto) % (0.0-2.0) Differential Total Cells Counted 100 Neutrophils % (Manual) 90 % (45-75) H Lymphocytes % (Manual) 2 % (20-45) L Monocytes % (Manual) 7 % (1-10) Eosinophils % (Manual) 1 % (0-3) Basophils % (Manual) 0 % (0-2) Band Neutrophils 0 % (0-8) Platelet Estimate Adequate Platelet Morphology Normal Hypochromasia 1+ Anisocytosis 1+ Sodium Level 137 MMOL/L (136-145) Potassium Level 2.9 MMOL/L (3.5-5.1) L Chloride Level 102 MMOL/L (98-107) Carbon Dioxide Level 24 MMOL/L (21-32) Anion Gap 11 mmol/L (5-15) Blood Urea Nitrogen 14 mg/dL (7-18) Creatinine 1.8 MG/DL (0.55-1.30) H Estimat Glomerular Filtration Rate mL/min (>60) Glucose Level 130 MG/DL (74-106) H Lactic Acid Level 1.00 mmol/L (0.4-2.0) Uric Acid 4.1 MG/DL (2.6-7.2) Calcium Level 8.8 MG/DL (8.5-10.1) Phosphorus Level 3.3 MG/DL (2.5-4.9) Magnesium Level 2.0 MG/DL (1.8-2.4) Total Bilirubin 0.6 MG/DL (0.2-1.0) Gamma Glutamyl Transpeptidase 41 U/L (5-85) Aspartate Amino Transf (AST/SGOT) 17 U/L (15-37) Alanine Aminotransferase (ALT/SGPT) 12 U/L (12-78) Alkaline Phosphatase 89 U/L (46-116) Lactate Dehydrogenase 283 U/L (81-234) H Troponin I 0.047 ng/mL (0.000-0.056) Pro-B-Type Natriuretic Peptide 57727 pg/mL (0-125) H Total Protein 6.2 G/DL (6.4-8.2) L Albumin 2.2 G/DL (3.4-5.0) L Globulin 4.0 g/dL Albumin/Globulin Ratio 0.6 (1.0-2.7) L Carcinoembryonic Antigen Pending Coccidioides Antibody (Comp Fix) Pending Cryptococcus Antigen Pending HIV (1&2) Antibody Rapid Negative (NEGATIVE) Plan Problems: (1) Abdominal pain Assessment & Plan: abdominal pain. nausea. coffee ground emesis. leukocytosis. labs noted exam benign. abd soft, nt/nd, bs+ CT without obstruction as per report - Pending OFFICIAL read fecal impaction s/p EGD -no acute surgical intervention planned -okay for diet -bowel regimen -appreciate GI input thank you will follow with recs. Ilia Rossi May 01, 2018 12:43
[2018-05-01] MEDS: Albuterol/Ipratropium 3ml neb HHN SCH ×2 (13:01→21:16)
[2018-05-01 13:26] LABS: CHOLESTEROL < 50 MG/DL (< 200); HDL CHOLESTEROL 22 MG/DL (40-60); TRIGLYCERIDES 63 MG/DL (30-150)
--- NOTE | 2018-05-01 15:45 | Consultation ---
DATE OF CONSULTATION: 05/01/2018 PULMONARY CONSULTATION CONSULTING PHYSICIAN: Ollie Sánchez M.D. REFERRING PHYSICIAN: Nick Bishop M.D. REASON FOR CONSULTATION: Chronic obstructive pulmonary disease and lung mass. HISTORY OF PRESENT ILLNESS: The patient is an 83-year-old male, former smoker, recently admitted with pneumonia, now readmitted with coffee-grounds emesis status post EGD consistent with gastritis. The patient had increased work of breathing and shortness of breath yesterday as well as hypotension, which responded somewhat to intravenous fluids. A CT of the chest was done given persistent opacities on chest x-ray, which showed a left upper lobe masslike opacity with left lower lobe nodular opacities. For this reason, pulmonary consultation was called. The patient is a poor historian, but does note cough and shortness of breath. No fevers or chills. No chest pain or other complaints. PAST MEDICAL HISTORY: 1. COPD. 2. GERD. 3. Diabetes. 4. Hypertension. 5. Anemia. 6. BPH. 7. Peripheral vascular disease. 8. Cachexia. 9. SNF resident. ALLERGIES: Risperidone. MEDICATIONS: Prior to admission medications reviewed. Current medications reviewed. SOCIAL HISTORY: Known tobacco use. Unknown drug or alcohol. FAMILY HISTORY: Noncontributory. REVIEW OF SYSTEMS: Negative. PHYSICAL EXAMINATION: VITAL SIGNS: Temperature 96.4, pulse 101, blood pressure 95/43, respiratory rate 16, and saturating 94% on two liters. GENERAL: Frail elderly cachectic male, mild distress HEENT: Normocephalic and atraumatic. Oropharynx is clear with moist mucous membranes. NECK: Supple without lymphadenopathy or jugular venous distention. CHEST: Distant. Scattered coarse. HEART: Regular rate and rhythm. ABDOMEN: Soft, nontender, nondistended. EXTREMITIES: No cyanosis, clubbing or edema. ANCILLARY DATA: White count 17, hemoglobin 7.9, and platelet count 224. ABG 7.37/38/68/22. Sodium 137, potassium 2.9, chloride 102, bicarbonate 24, BUN 14, creatinine 1.8, glucose 130. Lactic acid 1. Uric acid 4.1, calcium 8.8, phosphorus 3.3, magnesium 2.0. Total bilirubin 0.6, AST 17, ALT 12, and alkaline phosphatase 89. Troponin negative. CRP 28. ProBNP 05913. Total protein 6.2. Albumin 2.2. HIV negative. Coxy and crypto are pending. FOBT was positive last. There is no echocardiogram on file. CT of the chest from April 30, 2018 reviewed by myself shows severe emphysematous changes, masslike left upper lobe opacity and nodular left lower lobe opacity, interstitial atelectasis at the bases versus scarring, multiple calcified mediastinal and hilar nodes, multiple spleen calcifications, evidence of prior granulomatous disease. Microbiology reviewed. ASSESSMENT: The patient is an 83-year-old male, known smoker with a history of COPD, schizophrenia, GERD, diabetes, hypertension, anemia, BPH, peripheral vascular disease admitted with coffee-grounds emesis secondary to gastritis now status post endoscopy and treated for pneumonia recently, but CT of the chest showing left upper lobe masslike opacity concerning for possible neoplastic process. CT of the abdomen and pelvis has also been done per report, but I do not see the results at this time. Ultimately, the patient if within his goals of care need a biopsy of his lung mass to rule out neoplasm. I defer to Dr. Bishop and the primary team given the patient's DNR and his goals of care not entirely clear. Furthermore, the patient has been seen by Dr. Cee in the past so I will ask him (his coverage, ) to assume pulmonary care in the morning. For the meanwhile, I will optimize his COPD management and send off tumor markers. PROBLEM LIST: 1. Recent pneumonia, status post treatment. 2. Left upper lobe masslike opacity. 3. Left lower lobe nodular opacity. 4. Calcified mediastinal and hilar nodes. 5. COPD without evidence of exacerbation. 6. Coffee-ground emesis, GI bleed status post EGD consistent with gastritis, pathology pending. 7. Smoker. 8. Multiple medical problems, COPD, GERD, diabetes, hypertension, anemia, BPH, peripheral vascular disease, cachexia, and schizophrenia. TREATMENT PLAN: 1. We will send off tumor markers. 2. Optimize pulmonary hygiene/mobilize as tolerated. 3. [id number] and p.r.n. bronchodilators. 4. Defer decision on biopsy of left upper lobe mass to Dr. Bishop, and primary mini bar attendant. 5. The patient should have a full pulmonary workup as an outpatient including PFTs if within goals of care. 6. Antibiotics per ID. 7. Monitor volumes and renal function, maintenance IV fluids. 8. Aspiration precautions. 9. DVT prophylaxis, heparin subcutaneous. 10. We will get swallow evaluation. 11. DNAR. Dr. Bishop, thank you for allowing me to assist in the care of your patient. If I may be of any assistance, please do not hesitate to ask. Ollie Sánchez M.D. DR: Jason JOB#: [id number] CC:
[2018-05-01 16:00] VITALS: BP 117/71
--- NOTE | 2018-05-01 16:23 | Infectious Diseases Prog Note ---
Assessment/Plan Assessment/Plan Assessment: Sepsis, improving- likely from intraabdominal source and PNA- Lung opacities- r/o inefctions vs malignancy -sp cx p -CT Chest: Severe emphysema with masslike opacity in the left upper lobe and nodular opacity in the medial left lower lobe. Findings may be related to pneumonia although underlying scarring/fibrotic change or neoplasm/malignancy cannot be excluded. Recommend clinical correlation and short-term interval follow-up imaging after appropriate treatment to assess for resolution. Evidence of prior granulomatous exposure with scattered calcified granulomas and calcified hilar or mediastinal lymph nodes. Trace pleural effusions versus pleural thickening. u/a neg Bcx NTD CXR: Ill-defined airspace opacity at the left apex and right perihilar to mid area not significantly changed in appearance may represent multifocal pneumonia. Ill-defined 2 cm nodular density at the medial left lower lung concerning for lesion partially imaged on CT of the abdomen and pelvis. Difficult to exclude a 1.4 cm ill-defined lesion at the right apex superimposed over the posterior right fourth rib. Sequela of previous granulomatous disease and hyperinflation, emphysematous change of the left mid to lower lung again noted -neg HIV ab sc Coffee ground emesis Abdominal pain- ileus vs SBP -KUB: 1Diffuse gaseous distention of large and small bowel loops, nonspecific. This may suggest ileus or partial obstruction. Fecal retention in the right colon, which may suggest constipation. -CT ab/p p Afebrile Leukocytosis, increased Recent PNA, s/p Rx -04/17 sp cx MRSA, PsA (franklin S) -influenz sc neg GERD DM2 HTN COPD SNF resident anemia BPH PVD cachectic DNR Plan: -Continue empiric Zosyn #6 and IV Vancomycin #2 for intrabdominal coverage and for PNA pending cutlures -04/22 SP PO Levaquin and Linezolid #7 -04/16 SP Augmentin #1 -f/u CT abd./p (STILL PENDING REPORT SINCE 04/25; I HAVE CALLED RAD DEPT on TO FOLLOW UP; still not up) -f/u cx -Monitor CBC/CMP, temperatures -GI, Sx fu -aspiration precautions -f/u Cocci ab, CrAg, fungitell Thank you for this consultation. Will continue to follow along with you. Discussed with RN. Subjective Allergies: Coded Allergies: RISPERIDONE (Verified Allergy, Intermediate, 04/27/16) Subjective Afebrile leuokcytosis increased to [address] abd/p still pending! Objective Vital Signs Last 24 Hour Vital Signs Date Time Temp Pulse Resp B/P (MAP) Pulse Ox O2 Delivery O2 Flow Rate FiO2 05/01/18 13:14 89 22 98 Nasal Cannula 2.0 28 05/01/18 13:01 94 23 97 Nasal Cannula 2.0 28 05/01/18 12:00 97.1 97 19 116/64 (81) 97 05/01/18 09:31 88 18 94 Nasal Cannula 2.0 28 05/01/18 09:31 88 18 94 Nasal Cannula 2.0 28 05/01/18 09:00 Nasal Cannula 2.0 05/01/18 06:50 94 Nasal Cannula 2.0 28 05/01/18 06:50 Nasal Cannula 2.0 28 05/01/18 04:00 96.4 101 16 95/45 (62) 96 05/01/18 00:00 97.3 60 15 90/36 (54) 04/30/18 21:00 Nasal Cannula 2.0 04/30/18 20:38 93 Nasal Cannula 2.0 28 04/30/18 20:38 Nasal Cannula 2.0 28 04/30/18 20:00 97.3 60 16 90/41 (57) 93 Height (Feet): 5 Height (Inches): 7.00 Weight (Pounds): 156 Objective Drains: none Cardiovascular: RSR Respiratory: clear Abdomen: soft, flat, non-tender, present bowel sounds Extremities: no tenderness, no cyanosis Microbiology Date/Time Source Procedure Growth Status 04/30/18 21:30 Sputum Induced Gram Stain - Final Resulted 04/30/18 21:30 Sputum Induced Sputum Culture Pending Resulted Laboratory Tests Test 04/30/18 21:30 05/01/18 08:01 05/01/18 08:10 05/01/18 12:50 Arterial Blood pH 7.376 (7.350-7.450) Arterial Blood Partial Pressure CO2 38.5 mmHg (35.0-45.0) Arterial Blood Partial Pressure O2 68.9 mmHg (75.0-100.0) L Arterial Blood HCO3 22.1 mmol/L (22.0-26.0) Arterial Blood Oxygen Saturation 91.4 % (95-100) L Arterial Blood Base Excess -2.8 (-2-2) L Chuy Test Positive White Blood Count 17.1 K/UL (4.8-10.8) H Red Blood Count 2.67 M/UL (4.70-6.10) L Hemoglobin 7.9 G/DL (14.2-18.0) L Hematocrit 23.7 % (42.0-52.0) L Mean Corpuscular Volume 89 FL (80-99) Mean Corpuscular Hemoglobin 29.5 PG (27.0-31.0) Mean Corpuscular Hemoglobin Concent 33.3 G/DL (32.0-36.0) Red Cell Distribution Width 16.2 % (11.6-14.8) H Platelet Count 224 K/UL (150-450) Mean Platelet Volume 6.6 FL (6.5-10.1) Neutrophils (%) (Auto) % (45.0-75.0) Lymphocytes (%) (Auto) % (20.0-45.0) Monocytes (%) (Auto) % (1.0-10.0) Eosinophils (%) (Auto) % (0.0-3.0) Basophils (%) (Auto) % (0.0-2.0) Differential Total Cells Counted 100 Neutrophils % (Manual) 90 % (45-75) H Lymphocytes % (Manual) 2 % (20-45) L Monocytes % (Manual) 7 % (1-10) Eosinophils % (Manual) 1 % (0-3) Basophils % (Manual) 0 % (0-2) Band Neutrophils 0 % (0-8) Platelet Estimate Adequate Platelet Morphology Normal Hypochromasia 1+ Anisocytosis 1+ Sodium Level 137 MMOL/L (136-145) Potassium Level 2.9 MMOL/L (3.5-5.1) L Chloride Level 102 MMOL/L (98-107) Carbon Dioxide Level 24 MMOL/L (21-32) Anion Gap 11 mmol/L (5-15) Blood Urea Nitrogen 14 mg/dL (7-18) Creatinine 1.8 MG/DL (0.55-1.30) H Estimat Glomerular Filtration Rate mL/min (>60) Glucose Level 130 MG/DL (74-106) H Lactic Acid Level 1.00 mmol/L (0.4-2.0) Uric Acid 4.1 MG/DL (2.6-7.2) Calcium Level 8.8 MG/DL (8.5-10.1) Phosphorus Level 3.3 MG/DL (2.5-4.9) Magnesium Level 2.0 MG/DL (1.8-2.4) Total Bilirubin 0.6 MG/DL (0.2-1.0) Gamma Glutamyl Transpeptidase 41 U/L (5-85) Aspartate Amino Transf (AST/SGOT) 17 U/L (15-37) Alanine Aminotransferase (ALT/SGPT) 12 U/L (12-78) Alkaline Phosphatase 89 U/L (46-116) Lactate Dehydrogenase 283 U/L (81-234) H Troponin I 0.047 ng/mL (0.000-0.056) Pro-B-Type Natriuretic Peptide 90149 pg/mL (0-125) H Total Protein 6.2 G/DL (6.4-8.2) L Albumin 2.2 G/DL (3.4-5.0) L Globulin 4.0 g/dL Albumin/Globulin Ratio 0.6 (1.0-2.7) L Carcinoembryonic Antigen Pending Coccidioides Antibody (Comp Fix) Pending Cryptococcus Antigen Pending HIV (1&2) Antibody Rapid Negative (NEGATIVE) C-Reactive Protein, Quantitative > 70.0 mg/dL (0.00-0.90) H Triglycerides Level 63 MG/DL (30-150) Cholesterol Level < 50 MG/DL (< 200) LDL Cholesterol 25 mg/dL (<100) HDL Cholesterol 22 MG/DL (40-60) L Cholesterol/HDL Ratio 2.3 (3.3-4.4) L Current Medications Medications (Trade) Dose Ordered Sig/Amish Route PRN Reason Start Time Stop Time Status Last Admin Dose Admin Albuterol/ Ipratropium (Albuterol/ Ipratropium) 3 ml Q4H PRN HHN Shortness of Breath 04/30/18 21:00 05/05/18 20:59 Albuterol/ Ipratropium (Albuterol/ Ipratropium) 3 ml Q6HRT HHN 05/01/18 13:00 05/06/18 12:59 05/01/18 13:01 Aspirin (ASA) 81 mg DAILY ORAL 04/26/18 09:00 05/26/18 08:59 04/30/18 08:51 Atorvastatin Calcium (Lipitor) 10 mg BEDTIME ORAL 05/01/18 21:00 05/26/18 20:59 Bisacodyl (Dulcolax) 10 mg DAILYPRN PRN RECTAL Constipation 04/26/18 02:30 05/26/18 02:29 04/27/18 21:06 Docusate Sodium (Colace) 100 mg TWICE A DAY ORAL 04/26/18 09:00 05/26/18 08:59 04/30/18 17:07 Heparin Sodium (Porcine) (Heparin 5000 units/ml) 5,000 units EVERY 12 HOURS SUBQ 04/26/18 09:00 05/26/18 08:59 05/01/18 09:31 Iopamidol (Isovue-300 100ml) 100 ml NOW PRN INJ Radiology Procedure 04/25/18 19:30 Iron Sucrose 100 mg/Sodium Chloride 60 ml @ 240 mls/hr BEDTIME IVPB 04/29/18 21:00 05/03/18 21:14 04/30/18 21:00 Lactulose (Cephulac) 20 gm THREE TIMES A DAY ORAL 04/27/18 09:00 05/26/18 08:59 05/01/18 15:03 Lorazepam (Ativan) 1 mg Q6H PRN ORAL For Anxiety 04/30/18 08:15 05/07/18 08:14 Magnesium Hydroxide (Mom) 30 ml HSPRN PRN ORAL Constipation 04/26/18 02:30 05/26/18 02:29 Memantine (Namenda) 5 mg BID ORAL 04/26/18 18:00 05/26/18 17:59 04/30/18 17:08 Morphine Sulfate (Morphine Sulfate) 2 mg Q4H PRN IVP For Pain 04/26/18 02:15 05/03/18 02:14 05/01/18 11:29 Olanzapine (ZyPREXA Zydis) 5 mg BID ORAL 04/26/18 18:00 05/26/18 17:59 04/30/18 17:08 Ondansetron HCl (Zofran) 4 mg Q4H PRN IVP Nausea & Vomiting 04/26/18 02:15 05/26/18 02:14 04/29/18 18:34 Pantoprazole (Protonix) 40 mg BID ORAL 05/01/18 18:00 05/26/18 06:29 Piperacillin Sod/ Tazobactam Sod 3.375 gm/Dextrose 110 ml @ 27.5 mls/hr EVERY 8 HOURS IVPB 04/26/18 11:30 05/05/18 23:59 05/01/18 15:03 Polyethylene Glycol (Miralax) 17 gm BEDTIME ORAL 04/26/18 21:00 05/26/18 20:59 04/29/18 20:45 Sennosides (Senokot) 17.2 mg BEDTIME ORAL 04/26/18 21:00 05/26/18 20:59 04/29/18 20:44 Sodium Phosphate (Fleet's Sodium Phosl Enema) 133 ml QOD PRN RECTAL Constipation 04/26/18 02:30 05/26/18 02:29 04/28/18 02:21 Tiotropium [place] (Spiriva Inhaler) 1 puff DAILY INH 04/26/18 09:00 05/26/18 08:59 05/01/18 09:31 Vancomycin HCl (Vanco rx to dose) 1 ea DAILY PRN MISC Per rx protocol 04/30/18 11:30 05/30/18 11:29 Vancomycin HCl/ Dextrose 250 ml @ 166.667 mls/hr Q24H IVPB 05/01/18 11:00 05/06/18 10:59 05/01/18 11:18 Paula Light M.D. May 01, 2018 16:22
[2018-05-01 20:00] VITALS: BP 90/53
[2018-05-01] MEDS: Miralax 17gm pkt ORAL SCH (20:23)
[2018-05-01] MEDS: Sennosides 8.6mg tab ORAL SCH (20:23)
[2018-05-01] MEDS: Iron Sucrose 100 MG in NS 55 ML IVPB SCH (20:32)
--- NOTE | 2018-05-01 21:39 | General Progress Note ---
Assessment/Plan Assessment/Plan Covering for Kaitlin Joseph # Masslike opacity in the left upper lobe and nodular opacity in the medial left lower lobe. Findings may be related to pneumonia although underlying scarring/fibrotic change or neoplasm/malignancy cannot be excluded. Recommend clinical correlation and short-term interval follow-up imaging after appropriate treatment to assess for resolution. Evidence of prior granulomatous exposure with scattered calcified granulomas and calcified hilar or mediastinal lymph nodes. Trace pleural effusions versus pleural thickening. --> would repeat ct chest in 3 months --> if growing, enlarged, consider a ct guided bx # Anemia of iron deficiency is likely related to gi bleed --> anemia panel has been reviewed --> transfuse if hgb <7 --> iv iron has been started --> egd was completed and shows gastritis, distal esophagitis is on ppi --> Blood tx: 04/29, # Leukocytosis likely reactive process from anemia --> ID is following, appreciate rcs. --> Monitor and trend wbc for improvement --> WBC remains elevated --> Remains on abx. # GERD, continue on ppi # DM2, # HTN, # COPD # Emesis # Tachycardia # Chest pain, atypical angina Subjective Constitutional: Denies: no symptoms, chills, diaphoresis, fever, malaise, weakness, other HEENT: Denies: no symptoms, eye pain, blurred vision, tearing, double vision, ear pain, ear discharge, nose pain, nose congestion, throat pain, throat swelling, mouth pain, mouth swelling, other Cardiovascular: Denies: no symptoms, chest pain, edema, irregular heart rate, lightheadedness, palpitations, syncope, other Gastrointestinal/Abdominal: Denies: no symptoms, abdomen distended, abdominal pain, black stools, tarry stools, blood in stool, constipated, diarrhea, difficulty swallowing, nausea, poor appetite, poor fluid intake, rectal bleeding , vomiting, other Genitourinary: Denies: no symptoms, burning, discharge, frequency, flank pain, hematuria, incontinence, pain, urgency, other Neurologic/Psychiatric: Denies: no symptoms, anxiety, depressed, emotional problems, headache, numbness, paresthesia, pre-existing deficit, seizure, tingling, tremors, weakness, other Endocrine: Denies: no symptoms, excessive sweating, flushing, intolerance to cold, intolerance to heat, increased hunger, increased thirst, increased urine, unexplained weight gain, unexplained weight loss, other Hematologic/Lymphatic: Denies: no symptoms, anemia, easy bleeding, easy bruising, other Allergies: Coded Allergies: RISPERIDONE (Verified Allergy, Intermediate, 04/27/16) Subjective 04/29: tolerating iv iron very well, h/h pending from today, will re-order cbc 04/30: Pt awake and alert. On NC. S/P blood tx, Hgb improved to 9.5. WBC remains elevated, afebrile, on abx. Objective Last 24 Hour Vital Signs Date Time Temp Pulse Resp B/P (MAP) Pulse Ox O2 Delivery O2 Flow Rate FiO2 05/01/18 21:24 115 22 98 Nasal Cannula 3.0 32 05/01/18 21:16 Nasal Cannula 2.0 28 05/01/18 21:16 88 Nasal Cannula 3.0 32 05/01/18 21:15 110 23 88 Nasal Cannula 3.0 32 05/01/18 21:00 Nasal Cannula 3.0 Nasal Cannula 3.0 Nasal Cannula 3.0 Nasal Cannula 3.0 05/01/18 20:00 97.9 121 23 90/53 (65) 05/01/18 16:00 97.4 56 18 117/71 (86) 96 05/01/18 13:14 89 22 98 Nasal Cannula 2.0 28 05/01/18 13:01 94 23 97 Nasal Cannula 2.0 28 05/01/18 12:00 97.1 97 19 116/64 (81) 97 05/01/18 09:31 88 18 94 Nasal Cannula 2.0 28 05/01/18 09:31 88 18 94 Nasal Cannula 2.0 28 05/01/18 09:00 Nasal Cannula 2.0 05/01/18 06:50 94 Nasal Cannula 2.0 28 05/01/18 06:50 Nasal Cannula 2.0 28 05/01/18 04:00 96.4 101 16 95/45 (62) 96 05/01/18 00:00 97.3 60 15 90/36 (54) Intake and Output 04/30/18 05/01/18 18:59 06:59 Intake Total 900 ml 1020 ml Balance 900 ml 1020 ml Intake Oral 480 ml IV Total 420 ml 1020 ml # Voids 4 1 # Bowel Movements 1 1 Laboratory Tests 05/01/18 08:01: White Blood Count 17.1H, Red Blood Count 2.67L, Hemoglobin 7.9L, Hematocrit 23.7L, Mean Corpuscular Volume 89, Mean Corpuscular Hemoglobin 29.5, Mean Corpuscular Hemoglobin Concent 33.3, Red Cell Distribution Width 16.2H, Platelet Count 224, Mean Platelet Volume 6.6, Neutrophils (%) (Auto) , Lymphocytes (%) (Auto) , Monocytes (%) (Auto) , Eosinophils (%) (Auto) , Basophils (%) (Auto) , Differential Total Cells Counted 100, Neutrophils % ( Manual) 90H, Lymphocytes % (Manual) 2L, Monocytes % (Manual) 7, Eosinophils % ( Manual) 1, Basophils % (Manual) 0, Band Neutrophils 0, Platelet Estimate Adequate, Platelet Morphology Normal, Hypochromasia 1+, Anisocytosis 1+, Sodium Level 137, Potassium Level 2.9L, Chloride Level 102, Carbon Dioxide Level 24, Anion Gap 11, Blood Urea Nitrogen 14, Creatinine 1.8H, Estimat Glomerular Filtration Rate , Glucose Level 130H, Lactic Acid Level 1.00, Uric Acid 4.1, Calcium Level 8.8, Phosphorus Level 3.3, Magnesium Level 2.0, Total Bilirubin 0.6, Gamma Glutamyl Transpeptidase 41, Aspartate Amino Transf (AST/SGOT) 17, Alanine Aminotransferase (ALT/SGPT) 12, Alkaline Phosphatase 89, Lactate Dehydrogenase 283H, Troponin I 0.047, Pro-B-Type Natriuretic Peptide 25412R, Total Protein 6.2L, Albumin 2.2L, Globulin 4.0, Albumin/Globulin Ratio 0.6L, Carcinoembryonic Antigen [Pending], Coccidioides Antibody (Comp Fix) [Pending], Cryptococcus Antigen [Pending], HIV (1&2) Antibody Rapid Negative 05/01/18 08:10: C-Reactive Protein, Quantitative > 70.0H 05/01/18 12:50: Triglycerides Level 63, Cholesterol Level < 50, LDL Cholesterol 25, HDL Cholesterol 22L, Cholesterol/HDL Ratio 2.3L Height (Feet): 5 Height (Inches): 7.00 Weight (Pounds): 156 General Appearance: no apparent distress EENT: TMs normal Neck: supple Cardiovascular: regular rhythm Respiratory/Chest: lungs clear Abdomen: soft Extremities: non-tender Edema: 1+ Leg (L), 1+ Leg (R) Neurologic: alert Skin: warm/dry Nick Bishop MD May 01, 2018 21:39
[2018-05-02] VITALS: BP 94/50
[2018-05-02] MEDS: Albuterol/Ipratropium 3ml neb HHN SCH ×4 (01:00→19:15)
[2018-05-02 04:00] VITALS: BP 108/53
[2018-05-02] MEDS: Piperacillin/Tazobactam 3.375 GM in D5W 110 ML IVPB SCH ×3 (05:49→22:00)
[2018-05-02 08:00] VITALS: BP 120/51
--- NOTE | 2018-05-02 08:53 | Infectious Diseases Prog Note ---
Assessment/Plan Assessment/Plan Sepsis, improving- likely from intraabdominal source and PNA- Lung opacities- r/o inefctions vs malignancy -sp cx p -CT Chest: Severe emphysema with masslike opacity in the left upper lobe and nodular opacity in the medial left lower lobe. Findings may be related to pneumonia although underlying scarring/fibrotic change or neoplasm/malignancy cannot be excluded. Recommend clinical correlation and short-term interval follow-up imaging after appropriate treatment to assess for resolution. Evidence of prior granulomatous exposure with scattered calcified granulomas and calcified hilar or mediastinal lymph nodes. Trace pleural effusions versus pleural thickening. u/a neg Bcx NTD CXR: Ill-defined airspace opacity at the left apex and right perihilar to mid area not significantly changed in appearance may represent multifocal pneumonia. Ill-defined 2 cm nodular density at the medial left lower lung concerning for lesion partially imaged on CT of the abdomen and pelvis. Difficult to exclude a 1.4 cm ill-defined lesion at the right apex superimposed over the posterior right fourth rib. Sequela of previous granulomatous disease and hyperinflation, emphysematous change of the left mid to lower lung again noted -neg HIV ab sc Coffee ground emesis Abdominal pain- ileus vs SBP -KUB: 1Diffuse gaseous distention of large and small bowel loops, nonspecific. This may suggest ileus or partial obstruction. Fecal retention in the right colon, which may suggest constipation. -CT ab/p p Afebrile Leukocytosis, increased Recent PNA, s/p Rx -04/17 sp cx MRSA, PsA (franklin S) -influenz sc neg GERD DM2 HTN COPD SNF resident anemia BPH PVD cachectic DNR Plan: -Continue empiric Zosyn #7 and IV Vancomycin #3 for intrabdominal coverage and for PNA pending cultures -04/22 SP PO Levaquin and Linezolid #7 -04/16 SP Augmentin #1 -f/u CT abd./p (STILL PENDING REPORT SINCE 04/25; I HAVE CALLED RAD DEPT on TO FOLLOW UP; still not up) -f/u cx -Monitor CBC/CMP, temperatures -GI, Sx fu -aspiration precautions -f/u Cocci ab, CrAg, fungitell Thank you for this consultation. Will continue to follow along with you. Subjective Allergies: Coded Allergies: RISPERIDONE (Verified Allergy, Intermediate, 04/27/16) Subjective Patient with stable leukocytosis Afebrile IVETH and he is satting well on 3L NC Objective Vital Signs Last 24 Hour Vital Signs Date Time Temp Pulse Resp B/P (MAP) Pulse Ox O2 Delivery O2 Flow Rate FiO2 05/02/18 08:10 70 17 97 Nasal Cannula 3.0 32 05/02/18 07:56 92 Nasal Cannula 3.0 32 05/02/18 07:56 66 16 92 Nasal Cannula 3.0 32 05/02/18 07:56 Nasal Cannula 2.0 28 05/02/18 04:00 97.9 97 22 108/53 (71) 05/02/18 00:46 100 05/02/18 00:25 Nasal Cannula 3.0 32 05/02/18 00:25 Nasal Cannula 3.0 32 05/02/18 00:00 97.7 123 24 94/50 (65) 05/01/18 21:24 115 22 98 Nasal Cannula 3.0 32 05/01/18 21:16 Nasal Cannula 2.0 28 05/01/18 21:16 88 Nasal Cannula 3.0 32 05/01/18 21:15 110 23 88 Nasal Cannula 3.0 32 05/01/18 21:00 Nasal Cannula 3.0 Nasal Cannula 3.0 Nasal Cannula 3.0 Nasal Cannula 3.0 05/01/18 20:00 97.9 121 23 90/53 (65) 05/01/18 16:00 97.4 56 18 117/71 (86) 96 05/01/18 13:14 89 22 98 Nasal Cannula 2.0 28 05/01/18 13:01 94 23 97 Nasal Cannula 2.0 28 05/01/18 12:00 97.1 97 19 116/64 (81) 97 05/01/18 09:31 88 18 94 Nasal Cannula 2.0 28 05/01/18 09:31 88 18 94 Nasal Cannula 2.0 28 05/01/18 09:00 Nasal Cannula 2.0 Height (Feet): 5 Height (Inches): 7.00 Weight (Pounds): 156 Objective Gen: NAD, Satting well on 3L NC Cardiovascular: RRR, s1, s2 Respiratory: Course B/L No W Abdomen: soft, flat, non-tender, present bowel sounds Extremities: no tenderness, no cyanosis Microbiology Date/Time Source Procedure Growth Status 12/26/18 21:30 Sputum Induced Gram Stain - Final Resulted 04/30/18 21:30 Sputum Culture - Preliminary Gram Negative Bacillus 1 Resulted 05/01/18 19:13 Indwelling Cath Urine Culture - Preliminary NO GROWTH Resulted Laboratory Tests Test 05/01/18 12:50 Triglycerides Level 63 MG/DL (30-150) Cholesterol Level < 50 MG/DL (< 200) LDL Cholesterol 25 mg/dL (<100) HDL Cholesterol 22 MG/DL (40-60) L Cholesterol/HDL Ratio 2.3 (3.3-4.4) L Current Medications Medications (Trade) Dose Ordered Sig/Amish Route PRN Reason Start Time Stop Time Status Last Admin Dose Admin Albuterol/ Ipratropium (Albuterol/ Ipratropium) 3 ml Q4H PRN HHN Shortness of Breath 04/30/18 21:00 05/05/18 20:59 Albuterol/ Ipratropium (Albuterol/ Ipratropium) 3 ml Q6HRT HHN 05/01/18 13:00 05/06/18 12:59 05/02/18 07:56 Aspirin (ASA) 81 mg DAILY ORAL 04/26/18 09:00 05/26/18 08:59 04/30/18 08:51 Atorvastatin Calcium (Lipitor) 10 mg BEDTIME ORAL 05/01/18 21:00 05/26/18 20:59 Bisacodyl (Dulcolax) 10 mg DAILYPRN PRN RECTAL Constipation 04/26/18 02:30 05/26/18 02:29 04/27/18 21:06 Docusate Sodium (Colace) 100 mg TWICE A DAY ORAL 04/26/18 09:00 05/26/18 08:59 05/01/18 18:25 Heparin Sodium (Porcine) (Heparin 5000 units/ml) 5,000 units EVERY 12 HOURS SUBQ 04/26/18 09:00 05/26/18 08:59 05/01/18 09:31 Iopamidol (Isovue-300 100ml) 100 ml NOW PRN INJ Radiology Procedure 04/25/18 19:30 Iron Sucrose 100 mg/Sodium Chloride 60 ml @ 240 mls/hr BEDTIME IVPB 04/29/18 21:00 05/03/18 21:14 05/01/18 20:32 Lactulose (Cephulac) 20 gm THREE TIMES A DAY ORAL 04/27/18 09:00 05/26/18 08:59 05/01/18 15:03 Lorazepam (Ativan) 1 mg Q6H PRN ORAL For Anxiety 04/30/18 08:15 05/07/18 08:14 Magnesium Hydroxide (Mom) 30 ml HSPRN PRN ORAL Constipation 04/26/18 02:30 05/26/18 02:29 Memantine (Namenda) 5 mg BID ORAL 04/26/18 18:00 05/26/18 17:59 05/01/18 18:25 Morphine Sulfate (Morphine Sulfate) 2 mg Q4H PRN IVP For Pain 04/26/18 02:15 05/03/18 02:14 05/01/18 11:29 Olanzapine (ZyPREXA Zydis) 5 mg BID ORAL 04/26/18 18:00 05/26/18 17:59 05/01/18 18:25 Ondansetron HCl (Zofran) 4 mg Q4H PRN IVP Nausea & Vomiting 04/26/18 02:15 05/26/18 02:14 04/29/18 18:34 Pantoprazole (Protonix) 40 mg BID ORAL 05/01/18 18:00 05/26/18 06:29 05/01/18 18:25 Piperacillin Sod/ Tazobactam Sod 3.375 gm/Dextrose 110 ml @ 27.5 mls/hr EVERY 8 HOURS IVPB 04/26/18 11:30 05/05/18 23:59 05/02/18 05:49 Polyethylene Glycol (Miralax) 17 gm BEDTIME ORAL 04/26/18 21:00 05/26/18 20:59 04/29/18 20:45 Sennosides (Senokot) 17.2 mg BEDTIME ORAL 04/26/18 21:00 05/26/18 20:59 04/29/18 20:44 Sodium Phosphate (Fleet's Sodium Phosl Enema) 133 ml QOD PRN RECTAL Constipation 04/26/18 02:30 05/26/18 02:29 04/28/18 02:21 Tiotropium [place] (Spiriva Inhaler) 1 puff DAILY INH 04/26/18 09:00 05/26/18 08:59 05/01/18 09:31 Vancomycin HCl (Vanco rx to dose) 1 ea DAILY PRN MISC Per rx protocol 04/30/18 11:30 05/30/18 11:29 Vancomycin HCl/ Dextrose 250 ml @ 166.667 mls/hr Q24H IVPB 05/01/18 11:00 05/06/18 10:59 05/01/18 11:18 Suraj Elder MD May 02, 2018 08:53
[2018-05-02] MEDS: Heparin 5000 units/ml inj SUBQ SCH ×2 (09:00→21:55)
[2018-05-02] MEDS: Memantine 5 MG TAB ORAL SCH ×2 (09:00→18:00)
[2018-05-02] MEDS: Lactulose 10gm/15ml UDC ORAL SCH ×3 (09:00→18:00)
[2018-05-02] MEDS: Aspirin Baby 81mg ORAL SCH (09:00)
[2018-05-02] MEDS: Docusate 100mg cap ORAL SCH ×2 (09:00→18:00)
[2018-05-02] MEDS: ZyPREXA Zydis 5mg tab ORAL SCH ×2 (09:00→18:00)
--- NOTE | 2018-05-02 11:02 | GI Progress Note ---
Assessment/Plan Problems: (1) Intractable vomiting ICD Codes: R11.10 - Vomiting, unspecified SNOMED: 238182878, 442242980 Qualifiers: Qualified Codes: R11.2 - Nausea with vomiting, unspecified (2) GERD (gastroesophageal reflux disease) ICD Codes: K21.9 - Gastro-esophageal reflux disease without esophagitis SNOMED: 765567644 (3) Fecal impaction ICD Codes: K56.41 - Fecal impaction SNOMED: 78368645 (4) Anemia ICD Codes: D64.9 - Anemia, unspecified SNOMED: 175567235 (5) Abdominal pain ICD Codes: R10.9 - Unspecified abdominal pain SNOMED: 33957292, 097741257 Qualifiers: Qualified Codes: R10.13 - Epigastric pain (6) Constipation ICD Codes: K59.00 - Constipation, unspecified SNOMED: 61869413 (7) Severe protein-calorie malnutrition ICD Codes: E43 - Unspecified severe protein-calorie malnutrition SNOMED: 400625078 Status: stable, unchanged Status Narrative Discussed with Dr. Sy. Assessment/Plan SUMMARY OF FINDINGS: 1. Large hiatal hernia. 2. Minimum distal esophagitis. 3. Gastritis, status post biopsy. RECOMMENDATIONS: 1. Follow up biopsy results. 2. Monitor hemoglobin and hematocrit. Transfuse as needed. 3. Continue on PPI daily given esophagitis. 4. Start diet and advance as tolerated. 5. The patient may benefit from colonoscopy if needed. We will follow closely and make that recommendation later. DC planning The patient was seen and examined at bedside and all new and available data was reviewed in the patients chart. I agree with the above findings, impression and plan. (Patient seen earlier today. Signature stamp does not reflect patient encounter time.). - Gonzales Sy MD Subjective Subjective Abdominal pain resolved Objective Last 24 Hour Vital Signs Date Time Temp Pulse Resp B/P (MAP) Pulse Ox O2 Delivery O2 Flow Rate FiO2 05/02/18 09:07 71 18 94 Nasal Cannula 2.0 28 05/02/18 09:07 69 18 94 Nasal Cannula 2.0 28 05/02/18 09:00 Nasal Cannula 3.0 Nasal Cannula 3.0 Nasal Cannula 3.0 Nasal Cannula 3.0 05/02/18 08:10 70 17 97 Nasal Cannula 3.0 32 05/02/18 08:00 97.9 71 19 120/51 (74) 97 05/02/18 07:56 92 Nasal Cannula 3.0 32 05/02/18 07:56 66 16 92 Nasal Cannula 3.0 32 05/02/18 07:56 Nasal Cannula 2.0 28 05/02/18 04:00 97.9 97 22 108/53 (71) 05/02/18 00:46 100 05/02/18 00:25 Nasal Cannula 3.0 32 05/02/18 00:25 Nasal Cannula 3.0 32 05/02/18 00:00 97.7 123 24 94/50 (65) 05/01/18 21:24 115 22 98 Nasal Cannula 3.0 32 05/01/18 21:16 Nasal Cannula 2.0 28 05/01/18 21:16 88 Nasal Cannula 3.0 32 05/01/18 21:15 110 23 88 Nasal Cannula 3.0 32 05/01/18 21:00 Nasal Cannula 3.0 Nasal Cannula 3.0 Nasal Cannula 3.0 Nasal Cannula 3.0 05/01/18 20:00 97.9 121 23 90/53 (65) 05/01/18 16:00 97.4 56 18 117/71 (86) 96 05/01/18 13:14 89 22 98 Nasal Cannula 2.0 28 05/01/18 13:01 94 23 97 Nasal Cannula 2.0 28 05/01/18 12:00 97.1 97 19 116/64 (81) 97 Intake and Output 05/01/18 05/02/18 19:00 07:00 Intake Total 27021.500 ml 437.5 ml Output Total 1750 ml Balance 67793.500 ml -1312.5 ml Intake Oral 240 ml 240 ml IV Total 49709.500 ml 197.5 ml Output Urine Total 1750 ml # Voids 2 1 # Bowel Movements 1 Laboratory Tests Test 05/01/18 12:50 Triglycerides Level 63 MG/DL (30-150) Cholesterol Level < 50 MG/DL (< 200) LDL Cholesterol 25 mg/dL (<100) HDL Cholesterol 22 MG/DL (40-60) L Cholesterol/HDL Ratio 2.3 (3.3-4.4) L Microbiology Date/Time Source Procedure Growth Status 05/01/18 19:13 Indwelling Cath Urine Culture - Preliminary NO GROWTH Resulted Height (Feet): 5 Height (Inches): 7.00 Weight (Pounds): 156 General Appearance: WD/WN, no apparent distress, alert Cardiovascular: normal rate Respiratory/Chest: normal breath sounds, no respiratory distress Abdominal Exam: normal bowel sounds, non tender, soft Extremities: non-tender Gail Streeter NP May 02, 2018 11:02
[2018-05-02] MEDS ORDERED: NS 500ML ONE (11:06)
[2018-05-02 12:00] VITALS: BP 132/68
--- NOTE | 2018-05-02 12:05 | Nephrology Progress Note ---
Assessment/Plan Problem List: (1) Acute renal failure (2) Anemia (3) Hypokalemia Assessment episode of Low BP leading to rise of Cr 1.3 to 1.8 - Acute renal failure- Anemia Hypokalemia HypoAlbuminemia Plan today's labs pending Urine studies fluid chalenge Cortés Monitor renal parameters Subjective ROS Limited/Unobtainable: No Constitutional: Reports: malaise, weakness Objective Objective Last 24 Hour Vital Signs Date Time Temp Pulse Resp B/P (MAP) Pulse Ox O2 Delivery O2 Flow Rate FiO2 05/02/18 09:07 71 18 94 Nasal Cannula 2.0 28 05/02/18 09:07 69 18 94 Nasal Cannula 2.0 28 05/02/18 09:00 Nasal Cannula 3.0 Nasal Cannula 3.0 Nasal Cannula 3.0 Nasal Cannula 3.0 05/02/18 08:10 70 17 97 Nasal Cannula 3.0 32 05/02/18 08:00 97.9 71 19 120/51 (74) 97 05/02/18 07:56 92 Nasal Cannula 3.0 32 05/02/18 07:56 66 16 92 Nasal Cannula 3.0 32 05/02/18 07:56 Nasal Cannula 2.0 28 05/02/18 04:00 97.9 97 22 108/53 (71) 05/02/18 00:46 100 05/02/18 00:25 Nasal Cannula 3.0 32 05/02/18 00:25 Nasal Cannula 3.0 32 05/02/18 00:00 97.7 123 24 94/50 (65) 05/01/18 21:24 115 22 98 Nasal Cannula 3.0 32 05/01/18 21:16 Nasal Cannula 2.0 28 05/01/18 21:16 88 Nasal Cannula 3.0 32 05/01/18 21:15 110 23 88 Nasal Cannula 3.0 32 05/01/18 21:00 Nasal Cannula 3.0 Nasal Cannula 3.0 Nasal Cannula 3.0 Nasal Cannula 3.0 05/01/18 20:00 97.9 121 23 90/53 (65) 05/01/18 16:00 97.4 56 18 117/71 (86) 96 05/01/18 13:14 89 22 98 Nasal Cannula 2.0 28 05/01/18 13:01 94 23 97 Nasal Cannula 2.0 28 05/01/18 12:00 97.1 97 19 116/64 (81) 97 Intake and Output 05/01/18 05/02/18 19:00 07:00 Intake Total 85038.500 ml 437.5 ml Output Total 1750 ml Balance 16341.500 ml -1312.5 ml Intake Oral 240 ml 240 ml IV Total 54188.500 ml 197.5 ml Output Urine Total 1750 ml # Voids 2 1 # Bowel Movements 1 Laboratory Tests 05/01/18 12:50: Triglycerides Level 63, Cholesterol Level < 50, LDL Cholesterol 25, HDL Cholesterol 22L, Cholesterol/HDL Ratio 2.3L Height (Feet): 5 Height (Inches): 7.00 Weight (Pounds): 156 Cardiovascular: normal rate Respiratory/Chest: decreased breath sounds Abdomen: soft Cheo Balderrama MD May 02, 2018 12:05
[2018-05-02 12:31] LABS: HEMATOCRIT 25.3 % (42.0-52.0); HEMOGLOBIN 8.2 G/DL (14.2-18.0); MEAN CORPUSCULAR VOLUME 90 FL (80-99); PLATELET COUNT 244 K/UL (150-450); RED BLOOD COUNT 2.83 M/UL (4.70-6.10); RED CELL DISTRIBUTION WIDTH 15.8 % (11.6-14.8); WHITE BLOOD COUNT 13.9 K/UL (4.8-10.8)
[2018-05-02] MEDS: Vancomycin 1250mg/D5W 250ml IVPB SCH (12:33)
[2018-05-02 12:55] LABS: ALANINE AMINOTRANSFERASE 15 U/L (12-78); ALBUMIN 1.8 G/DL (3.4-5.0); ALBUMIN/GLOBULIN RATIO 0.5 (1.0-2.7); ALKALINE PHOSPHATASE 85 U/L (46-116); ANION GAP 11 mmol/L (5-15); ASPARTATE AMINO TRANSFERASE 34 U/L (15-37); BILIRUBIN,TOTAL 0.5 MG/DL (0.2-1.0); BLOOD UREA NITROGEN 15 mg/dL (7-18); CALCIUM 8.6 MG/DL (8.5-10.1); CARBON DIOXIDE 23 MMOL/L (21-32); CHLORIDE 104 MMOL/L (98-107); CREATININE 1.9 MG/DL (0.55-1.30); PHOSPHORUS 3.6 MG/DL (2.5-4.9); POTASSIUM 3.7 MMOL/L (3.5-5.1); SODIUM 138 MMOL/L (136-145)
[2018-05-02 12:58] LABS: AMMONIA 25 umol/L (11-32)
--- NOTE | 2018-05-02 14:37 | Cardiac Electrophysiology PN ---
Assessment/Plan Assessment/Plan 1. HTN, stable off prn meds 2. COPD, PNA on abx and nasal cannula. FU DR Sánchez 3. Intractable vomiting Fu Dr Sy 4. Chest pain, atypical angina 5. DM2 DW RN Subjective Subjective Feeling weak off Nasal cannula. No events Objective Last 24 Hour Vital Signs Date Time Temp Pulse Resp B/P (MAP) Pulse Ox O2 Delivery O2 Flow Rate FiO2 05/02/18 12:52 72 22 97 Nasal Cannula 3.0 32 05/02/18 12:39 73 24 93 Nasal Cannula 3.0 32 05/02/18 12:00 97.4 69 18 132/68 (89) 97 05/02/18 09:07 71 18 94 Nasal Cannula 2.0 28 05/02/18 09:07 69 18 94 Nasal Cannula 2.0 28 05/02/18 09:00 Nasal Cannula 3.0 Nasal Cannula 3.0 Nasal Cannula 3.0 Nasal Cannula 3.0 05/02/18 08:10 70 17 97 Nasal Cannula 3.0 32 05/02/18 08:00 97.9 71 19 120/51 (74) 97 05/02/18 07:56 92 Nasal Cannula 3.0 32 05/02/18 07:56 66 16 92 Nasal Cannula 3.0 32 05/02/18 07:56 Nasal Cannula 2.0 28 05/02/18 04:00 97.9 97 22 108/53 (71) 05/02/18 00:46 100 05/02/18 00:25 Nasal Cannula 3.0 32 05/02/18 00:25 Nasal Cannula 3.0 32 05/02/18 00:00 97.7 123 24 94/50 (65) 05/01/18 21:24 115 22 98 Nasal Cannula 3.0 32 05/01/18 21:16 Nasal Cannula 2.0 28 05/01/18 21:16 88 Nasal Cannula 3.0 32 05/01/18 21:15 110 23 88 Nasal Cannula 3.0 32 05/01/18 21:00 Nasal Cannula 3.0 Nasal Cannula 3.0 Nasal Cannula 3.0 Nasal Cannula 3.0 05/01/18 20:00 97.9 121 23 90/53 (65) 05/01/18 16:00 97.4 56 18 117/71 (86) 96 Intake and Output 05/01/18 05/02/18 19:00 07:00 Intake Total 86950.500 ml 437.5 ml Output Total 1750 ml Balance 79157.500 ml -1312.5 ml Intake Oral 240 ml 240 ml IV Total 77809.500 ml 197.5 ml Output Urine Total 1750 ml # Voids 2 1 # Bowel Movements 1 Laboratory Tests Test 05/02/18 12:25 White Blood Count 13.9 K/UL (4.8-10.8) H Red Blood Count 2.83 M/UL (4.70-6.10) L Hemoglobin 8.2 G/DL (14.2-18.0) L Hematocrit 25.3 % (42.0-52.0) L Mean Corpuscular Volume 90 FL (80-99) Mean Corpuscular Hemoglobin 28.9 PG (27.0-31.0) Mean Corpuscular Hemoglobin Concent 32.3 G/DL (32.0-36.0) Red Cell Distribution Width 15.8 % (11.6-14.8) H Platelet Count 244 K/UL (150-450) Mean Platelet Volume 6.5 FL (6.5-10.1) Neutrophils (%) (Auto) % (45.0-75.0) Lymphocytes (%) (Auto) % (20.0-45.0) Monocytes (%) (Auto) % (1.0-10.0) Eosinophils (%) (Auto) % (0.0-3.0) Basophils (%) (Auto) % (0.0-2.0) Differential Total Cells Counted 100 Neutrophils % (Manual) 88 % (45-75) H Lymphocytes % (Manual) 6 % (20-45) L Monocytes % (Manual) 3 % (1-10) Eosinophils % (Manual) 3 % (0-3) Basophils % (Manual) 0 % (0-2) Band Neutrophils 0 % (0-8) Platelet Estimate Adequate Platelet Morphology Normal Hypochromasia 1+ Anisocytosis 1+ Sodium Level 138 MMOL/L (136-145) Potassium Level 3.7 MMOL/L (3.5-5.1) Chloride Level 104 MMOL/L (98-107) Carbon Dioxide Level 23 MMOL/L (21-32) Anion Gap 11 mmol/L (5-15) Blood Urea Nitrogen 15 mg/dL (7-18) Creatinine 1.9 MG/DL (0.55-1.30) H Estimat Glomerular Filtration Rate mL/min (>60) Glucose Level 119 MG/DL (74-106) H Uric Acid 4.6 MG/DL (2.6-7.2) Calcium Level 8.6 MG/DL (8.5-10.1) Phosphorus Level 3.6 MG/DL (2.5-4.9) Magnesium Level 2.0 MG/DL (1.8-2.4) Total Bilirubin 0.5 MG/DL (0.2-1.0) Aspartate Amino Transf (AST/SGOT) 34 U/L (15-37) Alanine Aminotransferase (ALT/SGPT) 15 U/L (12-78) Alkaline Phosphatase 85 U/L (46-116) Ammonia 25 umol/L (11-32) Pro-B-Type Natriuretic Peptide 55119 pg/mL (0-125) H Total Protein 5.7 G/DL (6.4-8.2) L Albumin 1.8 G/DL (3.4-5.0) L Globulin 3.9 g/dL Albumin/Globulin Ratio 0.5 (1.0-2.7) L Microbiology Date/Time Source Procedure Growth Status 04/30/18 21:30 Sputum Induced Gram Stain - Final Resulted 04/30/18 21:30 Sputum Culture - Preliminary Gram Negative Bacillus 1 Resulted 05/01/18 19:13 Indwelling Cath Urine Culture - Preliminary NO GROWTH Resulted Objective HEENT: No JVD . Nasal Cannula is on Cardiovascular: normal peripheral pulses, normal rate, regular rhythm Respiratory/Chest: Coarse rhonchi Abdomen: soft, no organomegaly Extremities: no swelling Ralph Loomis MD May 02, 2018 14:37
--- NOTE | 2018-05-02 14:58 | Pulmonology Progress Note ---
Assessment/Plan Assessment/Plan Pulmonary Progress Note REASON FOR CONSULTATION: Chronic obstructive pulmonary disease and lung mass. HISTORY OF PRESENT ILLNESS: The patient is an 83-year-old male, former smoker, recently admitted with pneumonia, now readmitted with coffee-grounds emesis status post EGD consistent with gastritis. The patient had increased work of breathing and shortness of breath yesterday as well as hypotension, which responded somewhat to intravenous fluids. A CT of the chest was done given persistent opacities on chest x-ray, which showed a left upper lobe masslike opacity with left lower lobe nodular opacities. For this reason, pulmonary consultation was called. The patient is a poor historian, but does note cough and shortness of breath. No fevers or chills. No chest pain or other complaints. PAST MEDICAL HISTORY: 1. COPD. 2. GERD. 3. Diabetes. 4. Hypertension. 5. Anemia. 6. BPH. 7. Peripheral vascular disease. 8. Cachexia. 9. [facility] resident. ALLERGIES: Risperidone. MEDICATIONS: Prior to admission medications reviewed. Current medications reviewed. SOCIAL HISTORY: Known tobacco use. Unknown drug or alcohol. FAMILY HISTORY: Noncontributory. REVIEW OF SYSTEMS: Negative. PHYSICAL EXAMINATION: VITAL SIGNS NOTED GENERAL: Frail elderly cachectic male, mild distress HEENT: Normocephalic and atraumatic. Oropharynx is clear with moist mucous membranes. NECK: Supple without lymphadenopathy or jugular venous distention. CHEST: Distant. Scattered coarse. HEART: Regular rate and rhythm. ABDOMEN: Soft, nontender, nondistended. EXTREMITIES: No cyanosis, clubbing or edema. ANCILLARY DATA: White count 17, hemoglobin 7.9, and platelet count 224. ABG 7.37/38/68/22. Sodium 137, potassium 2.9, chloride 102, bicarbonate 24, BUN 14, creatinine 1.8, glucose 130. Lactic acid 1. Uric acid 4.1, calcium 8.8, phosphorus 3.3, magnesium 2.0. Total bilirubin 0.6, AST 17, ALT 12, and alkaline phosphatase 89. Troponin negative. CRP 28. ProBNP 80110. Total protein 6.2. Albumin 2.2. HIV negative. Coxy and crypto are pending. FOBT was positive last. There is no echocardiogram on file. CT of the chest from April 30, 2018 severe emphysematous changes, masslike left upper lobe opacity and nodular left lower lobe opacity, interstitial atelectasis at the bases versus scarring, multiple calcified mediastinal and hilar nodes, multiple spleen calcifications, evidence of prior granulomatous disease. Microbiology reviewed. ASSESSMENT: The patient is an 83-year-old male, known smoker with a history of COPD, schizophrenia, GERD, diabetes, hypertension, anemia, BPH, peripheral vascular disease admitted with coffee-grounds emesis secondary to gastritis now status post endoscopy and treated for pneumonia recently, but CT of the chest showing left upper lobe masslike opacity concerning for possible neoplastic process. CT of the abdomen and pelvis has also been done per report, but I do not see the results at this time. Ultimately, the patient if within his goals of care need a biopsy of his lung mass to rule out neoplasm. I defer to Dr. Bishop and the primary team given the patient's DNR and his goals of care not entirely clear. Optimize his COPD management, tumor markers pending PROBLEM LIST: 1. Recent pneumonia, status post treatment. 2. Left upper lobe masslike opacity. 3. Left lower lobe nodular opacity. 4. Calcified mediastinal and hilar nodes. 5. COPD without evidence of exacerbation. 6. Coffee-ground emesis, GI bleed status post EGD consistent with gastritis, pathology pending. 7. Smoker. 8. Multiple medical problems, COPD, GERD, diabetes, hypertension, anemia, BPH, peripheral vascular disease, cachexia, and schizophrenia. TREATMENT PLAN: 1. We will send off tumor markers. 2. Optimize pulmonary hygiene/mobilize as tolerated. 3. Nspbw-ltz-bruhd and p.r.n. bronchodilators. 4. Defer decision on biopsy of left upper lobe mass to Dr. Bishop, and primary computer systems administrator. 5. The patient should have a full pulmonary workup as an outpatient including PFTs if within goals of care. 6. Antibiotics per ID. 7. Monitor volumes and renal function, maintenance IV fluids. 8. Aspiration precautions. 9. DVT prophylaxis, heparin subcutaneous. 10. We will get swallow evaluation. 11. DNAR. Subjective ROS Limited/Unobtainable: No Allergies: Coded Allergies: RISPERIDONE (Verified Allergy, Intermediate, 04/27/16) Objective Last 24 Hour Vital Signs Date Time Temp Pulse Resp B/P (MAP) Pulse Ox O2 Delivery O2 Flow Rate FiO2 05/02/18 12:52 72 22 97 Nasal Cannula 3.0 32 05/02/18 12:39 73 24 93 Nasal Cannula 3.0 32 05/02/18 12:00 97.4 69 18 132/68 (89) 97 05/02/18 09:07 71 18 94 Nasal Cannula 2.0 28 05/02/18 09:07 69 18 94 Nasal Cannula 2.0 28 05/02/18 09:00 Nasal Cannula 3.0 Nasal Cannula 3.0 Nasal Cannula 3.0 Nasal Cannula 3.0 05/02/18 08:10 70 17 97 Nasal Cannula 3.0 32 05/02/18 08:00 97.9 71 19 120/51 (74) 97 05/02/18 07:56 92 Nasal Cannula 3.0 32 05/02/18 07:56 66 16 92 Nasal Cannula 3.0 32 05/02/18 07:56 Nasal Cannula 2.0 28 05/02/18 04:00 97.9 97 22 108/53 (71) 05/02/18 00:46 100 05/02/18 00:25 Nasal Cannula 3.0 32 05/02/18 00:25 Nasal Cannula 3.0 32 05/02/18 00:00 97.7 123 24 94/50 (65) 05/01/18 21:24 115 22 98 Nasal Cannula 3.0 32 05/01/18 21:16 Nasal Cannula 2.0 28 05/01/18 21:16 88 Nasal Cannula 3.0 32 05/01/18 21:15 110 23 88 Nasal Cannula 3.0 32 05/01/18 21:00 Nasal Cannula 3.0 Nasal Cannula 3.0 Nasal Cannula 3.0 Nasal Cannula 3.0 05/01/18 20:00 97.9 121 23 90/53 (65) 05/01/18 16:00 97.4 56 18 117/71 (86) 96 Intake and Output 05/01/18 05/02/18 19:00 07:00 Intake Total 93170.500 ml 437.5 ml Output Total 1750 ml Balance 28109.500 ml -1312.5 ml Intake Oral 240 ml 240 ml IV Total 07171.500 ml 197.5 ml Output Urine Total 1750 ml # Voids 2 1 # Bowel Movements 1 Microbiology Date/Time Source Procedure Growth Status 04/30/18 21:30 Sputum Induced Gram Stain - Final Resulted 04/30/18 21:30 Sputum Culture - Preliminary Gram Negative Bacillus 1 Resulted 05/01/18 19:13 Indwelling Cath Urine Culture - Preliminary NO GROWTH Resulted Laboratory Tests 05/02/18 12:25: White Blood Count 13.9H, Red Blood Count 2.83L, Hemoglobin 8.2L, Hematocrit 25.3L, Mean Corpuscular Volume 90, Mean Corpuscular Hemoglobin 28.9, Mean Corpuscular Hemoglobin Concent 32.3, Red Cell Distribution Width 15.8H, Platelet Count 244, Mean Platelet Volume 6.5, Neutrophils (%) (Auto) , Lymphocytes (%) (Auto) , Monocytes (%) (Auto) , Eosinophils (%) (Auto) , Basophils (%) (Auto) , Differential Total Cells Counted 100, Neutrophils % ( Manual) 88H, Lymphocytes % (Manual) 6L, Monocytes % (Manual) 3, Eosinophils % ( Manual) 3, Basophils % (Manual) 0, Band Neutrophils 0, Platelet Estimate Adequate, Platelet Morphology Normal, Hypochromasia 1+, Anisocytosis 1+, Sodium Level 138, Potassium Level 3.7, Chloride Level 104, Carbon Dioxide Level 23, Anion Gap 11, Blood Urea Nitrogen 15, Creatinine 1.9H, Estimat Glomerular Filtration Rate , Glucose Level 119H, Uric Acid 4.6, Calcium Level 8.6, Phosphorus Level 3.6, Magnesium Level 2.0, Total Bilirubin 0.5, Aspartate Amino Transf (AST/SGOT) 34, Alanine Aminotransferase (ALT/SGPT) 15, Alkaline Phosphatase 85, Ammonia 25, Pro-B-Type Natriuretic Peptide 18535Z, Total Protein 5.7L, Albumin 1.8L, Globulin 3.9, Albumin/Globulin Ratio 0.5L Current Medications Medications (Trade) Dose Ordered Sig/Amish Route PRN Reason Start Time Stop Time Status Last Admin Dose Admin Albuterol/ Ipratropium (Albuterol/ Ipratropium) 3 ml Q4H PRN HHN Shortness of Breath 04/30/18 21:00 05/05/18 20:59 Albuterol/ Ipratropium (Albuterol/ Ipratropium) 3 ml Q6HRT HHN 05/01/18 13:00 05/06/18 12:59 05/02/18 12:39 Aspirin (ASA) 81 mg DAILY ORAL 04/26/18 09:00 05/26/18 08:59 04/30/18 08:51 Atorvastatin Calcium (Lipitor) 10 mg BEDTIME ORAL 05/01/18 21:00 05/26/18 20:59 Bisacodyl (Dulcolax) 10 mg DAILYPRN PRN RECTAL Constipation 04/26/18 02:30 05/26/18 02:29 04/27/18 21:06 Docusate Sodium (Colace) 100 mg TWICE A DAY ORAL 04/26/18 09:00 05/26/18 08:59 05/01/18 18:25 Heparin Sodium (Porcine) (Heparin 5000 units/ml) 5,000 units EVERY 12 HOURS SUBQ 04/26/18 09:00 05/26/18 08:59 05/01/18 09:31 Iopamidol (Isovue-300 100ml) 100 ml NOW PRN INJ Radiology Procedure 04/25/18 19:30 Iron Sucrose 100 mg/Sodium Chloride 60 ml @ 240 mls/hr BEDTIME IVPB 04/29/18 21:00 05/03/18 21:14 05/01/18 20:32 Lactulose (Cephulac) 20 gm THREE TIMES A DAY ORAL 04/27/18 09:00 05/26/18 08:59 05/01/18 15:03 Lorazepam (Ativan) 1 mg Q6H PRN ORAL For Anxiety 04/30/18 08:15 05/07/18 08:14 Magnesium Hydroxide (Mom) 30 ml HSPRN PRN ORAL Constipation 04/26/18 02:30 05/26/18 02:29 Memantine (Namenda) 5 mg BID ORAL 04/26/18 18:00 05/26/18 17:59 05/01/18 18:25 Morphine Sulfate (Morphine Sulfate) 2 mg Q4H PRN IVP For Pain 04/26/18 02:15 05/03/18 02:14 05/01/18 11:29 Olanzapine (ZyPREXA Zydis) 5 mg BID ORAL 04/26/18 18:00 05/26/18 17:59 05/01/18 18:25 Ondansetron HCl (Zofran) 4 mg Q4H PRN IVP Nausea & Vomiting 04/26/18 02:15 05/26/18 02:14 04/29/18 18:34 Pantoprazole (Protonix) 40 mg BID ORAL 05/01/18 18:00 05/26/18 06:29 05/01/18 18:25 Piperacillin Sod/ Tazobactam Sod 3.375 gm/Dextrose 110 ml @ 27.5 mls/hr EVERY 8 HOURS IVPB 04/26/18 11:30 05/05/18 23:59 05/02/18 05:49 Polyethylene Glycol (Miralax) 17 gm BEDTIME ORAL 04/26/18 21:00 05/26/18 20:59 04/29/18 20:45 Sennosides (Senokot) 17.2 mg BEDTIME ORAL 04/26/18 21:00 05/26/18 20:59 04/29/18 20:44 Sodium Phosphate (Fleet's Sodium Phosl Enema) 133 ml QOD PRN RECTAL Constipation 04/26/18 02:30 05/26/18 02:29 04/28/18 02:21 Tiotropium [place] (Spiriva Inhaler) 1 puff DAILY INH 04/26/18 09:00 05/26/18 08:59 05/02/18 09:03 Vancomycin HCl (Vanco rx to dose) 1 ea DAILY PRN MISC Per rx protocol 04/30/18 11:30 05/30/18 11:29 Vancomycin HCl/ Dextrose 250 ml @ 166.667 mls/hr Q24H IVPB 05/01/18 11:00 05/06/18 10:59 05/02/18 12:33 Suraj Swift MD May 02, 2018 14:58
--- NOTE | 2018-05-02 15:30 | Progress Note ---
DATE: 05/02/2018 SUBJECTIVE: This is an 83-year-old male patient with vomiting and abdominal pain He is confused, disorganized, and mood labile. He has got no logical plan for his own self-care and altered mental status. He still has increasing mood lability, confusion, and agitation MENTAL STATUS EXAMINATION: This is an 83-year-old male. Appearance is disheveled. Attitude, irritable and agitated. Affect, guarded and restricted. Intellect is poor. Mood, depressed and anxious. Motor activity, psychomotor agitation. Attention span is poor. Orientation x2. Speech is pressured. Thought process, disorganized and illogical. Thought content, auditory hallucinations and paranoid delusions. Insight and judgment is poor. DIAGNOSIS: Major depression with psychotic features, rule out paranoid schizophrenia. PLAN: Treat him with Namenda 5 mg twice a day, Zyprexa 5 mg twice a day, and Ativan 1 mg every 12 hours p.r.n. anxiety and agitation. Provided him with 20 minutes of supportive psychotherapy and 20 minutes of cognitive behavioral therapy to help identify his automatic negative thoughts to help him convert those negative thoughts to more positive thinking to reduce depression, anxiety, and impulsive thinking, and also to help him have a more adaptive behavioral pattern. Darrick Robert M.D. DR: KIM JOB#: [id number] CC:
[2018-05-02 16:00] VITALS: BP 126/76
--- NOTE | 2018-05-02 16:14 | General Surgery Progress Note ---
General Surgery-Progress Note Subjective Symptoms: improved, pain absent, tolerating diet, passing flatus, BM Objective Last 24 Hour Vital Signs Date Time Temp Pulse Resp B/P (MAP) Pulse Ox O2 Delivery O2 Flow Rate FiO2 05/02/18 16:00 97.2 73 21 126/76 (93) 97 05/02/18 12:52 72 22 97 Nasal Cannula 3.0 32 05/02/18 12:39 73 24 93 Nasal Cannula 3.0 32 05/02/18 12:00 97.4 69 18 132/68 (89) 97 05/02/18 09:07 71 18 94 Nasal Cannula 2.0 28 05/02/18 09:07 69 18 94 Nasal Cannula 2.0 28 05/02/18 09:00 Nasal Cannula 3.0 Nasal Cannula 3.0 Nasal Cannula 3.0 Nasal Cannula 3.0 05/02/18 08:10 70 17 97 Nasal Cannula 3.0 32 05/02/18 08:00 97.9 71 19 120/51 (74) 97 05/02/18 07:56 92 Nasal Cannula 3.0 32 05/02/18 07:56 66 16 92 Nasal Cannula 3.0 32 05/02/18 07:56 Nasal Cannula 2.0 28 05/02/18 04:00 97.9 97 22 108/53 (71) 05/02/18 00:46 100 05/02/18 00:25 Nasal Cannula 3.0 32 05/02/18 00:25 Nasal Cannula 3.0 32 05/02/18 00:00 97.7 123 24 94/50 (65) 05/01/18 21:24 115 22 98 Nasal Cannula 3.0 32 05/01/18 21:16 Nasal Cannula 2.0 28 05/01/18 21:16 88 Nasal Cannula 3.0 32 05/01/18 21:15 110 23 88 Nasal Cannula 3.0 32 05/01/18 21:00 Nasal Cannula 3.0 Nasal Cannula 3.0 Nasal Cannula 3.0 Nasal Cannula 3.0 05/01/18 20:00 97.9 121 23 90/53 (65) I&O Intake and Output 05/01/18 05/02/18 19:00 07:00 Intake Total 49910.500 ml 437.5 ml Output Total 1750 ml Balance 31281.500 ml -1312.5 ml Intake Oral 240 ml 240 ml IV Total 56995.500 ml 197.5 ml Output Urine Total 1750 ml # Voids 2 1 # Bowel Movements 1 Drains: none Cardiovascular: RSR Respiratory: clear Abdomen: soft, flat, non-tender, present bowel sounds Extremities: no cyanosis Laboratory Tests Test 05/02/18 12:25 White Blood Count 13.9 K/UL (4.8-10.8) H Red Blood Count 2.83 M/UL (4.70-6.10) L Hemoglobin 8.2 G/DL (14.2-18.0) L Hematocrit 25.3 % (42.0-52.0) L Mean Corpuscular Volume 90 FL (80-99) Mean Corpuscular Hemoglobin 28.9 PG (27.0-31.0) Mean Corpuscular Hemoglobin Concent 32.3 G/DL (32.0-36.0) Red Cell Distribution Width 15.8 % (11.6-14.8) H Platelet Count 244 K/UL (150-450) Mean Platelet Volume 6.5 FL (6.5-10.1) Neutrophils (%) (Auto) % (45.0-75.0) Lymphocytes (%) (Auto) % (20.0-45.0) Monocytes (%) (Auto) % (1.0-10.0) Eosinophils (%) (Auto) % (0.0-3.0) Basophils (%) (Auto) % (0.0-2.0) Differential Total Cells Counted 100 Neutrophils % (Manual) 88 % (45-75) H Lymphocytes % (Manual) 6 % (20-45) L Monocytes % (Manual) 3 % (1-10) Eosinophils % (Manual) 3 % (0-3) Basophils % (Manual) 0 % (0-2) Band Neutrophils 0 % (0-8) Platelet Estimate Adequate Platelet Morphology Normal Hypochromasia 1+ Anisocytosis 1+ Sodium Level 138 MMOL/L (136-145) Potassium Level 3.7 MMOL/L (3.5-5.1) Chloride Level 104 MMOL/L (98-107) Carbon Dioxide Level 23 MMOL/L (21-32) Anion Gap 11 mmol/L (5-15) Blood Urea Nitrogen 15 mg/dL (7-18) Creatinine 1.9 MG/DL (0.55-1.30) H Estimat Glomerular Filtration Rate mL/min (>60) Glucose Level 119 MG/DL (74-106) H Uric Acid 4.6 MG/DL (2.6-7.2) Calcium Level 8.6 MG/DL (8.5-10.1) Phosphorus Level 3.6 MG/DL (2.5-4.9) Magnesium Level 2.0 MG/DL (1.8-2.4) Total Bilirubin 0.5 MG/DL (0.2-1.0) Aspartate Amino Transf (AST/SGOT) 34 U/L (15-37) Alanine Aminotransferase (ALT/SGPT) 15 U/L (12-78) Alkaline Phosphatase 85 U/L (46-116) Ammonia 25 umol/L (11-32) Pro-B-Type Natriuretic Peptide 79784 pg/mL (0-125) H Total Protein 5.7 G/DL (6.4-8.2) L Albumin 1.8 G/DL (3.4-5.0) L Globulin 3.9 g/dL Albumin/Globulin Ratio 0.5 (1.0-2.7) L Plan Problems: (1) Abdominal pain Assessment & Plan: abdominal pain. nausea. coffee ground emesis. leukocytosis. labs noted exam benign. abd soft, nt/nd, bs+ CT without obstruction as per report fecal impaction s/p EGD -no acute surgical intervention planned -okay for diet -bowel regimen -appreciate GI input thank you will follow with recs. Ilia Rossi May 02, 2018 16:14
[2018-05-02 20:00] VITALS: BP 103/66
--- NOTE | 2018-05-02 21:12 | General Progress Note ---
Assessment/Plan Assessment/Plan Covering for Kaitlin Joseph # Masslike opacity in the left upper lobe and nodular opacity in the medial left lower lobe. Findings may be related to pneumonia although underlying scarring/fibrotic change or neoplasm/malignancy cannot be excluded. Recommend clinical correlation and short-term interval follow-up imaging after appropriate treatment to assess for resolution. Evidence of prior granulomatous exposure with scattered calcified granulomas and calcified hilar or mediastinal lymph nodes. Trace pleural effusions versus pleural thickening. --> would repeat ct chest in 3 months --> if growing, enlarged, consider a ct guided bx # Anemia of iron deficiency is likely related to gi bleed --> anemia panel has been reviewed --> transfuse if hgb <7 --> iv iron has been started --> egd was completed and shows gastritis, distal esophagitis is on ppi --> Blood tx: 04/29, # Leukocytosis likely reactive process from anemia --> ID is following, appreciate rcs. --> Monitor and trend wbc for improvement --> WBC remains elevated --> Remains on abx. # GERD, continue on ppi # DM2, # HTN, # COPD # Emesis # Tachycardia # Chest pain, atypical angina Subjective Constitutional: Denies: no symptoms, chills, diaphoresis, fever, malaise, weakness, other HEENT: Denies: no symptoms, eye pain, blurred vision, tearing, double vision, ear pain, ear discharge, nose pain, nose congestion, throat pain, throat swelling, mouth pain, mouth swelling, other Cardiovascular: Denies: no symptoms, chest pain, edema, irregular heart rate, lightheadedness, palpitations, syncope, other Respiratory: Denies: no symptoms, cough, orthopnea, shortness of breath, SOB with excertion, SOB at rest, sputum, stridor, wheezing, other Gastrointestinal/Abdominal: Denies: no symptoms, abdomen distended, abdominal pain, black stools, tarry stools, blood in stool, constipated, diarrhea, difficulty swallowing, nausea, poor appetite, poor fluid intake, rectal bleeding , vomiting, other Genitourinary: Denies: no symptoms, burning, discharge, frequency, flank pain, hematuria, incontinence, pain, urgency, other Neurologic/Psychiatric: Denies: no symptoms, anxiety, depressed, emotional problems, headache, numbness, paresthesia, pre-existing deficit, seizure, tingling, tremors, weakness, other Endocrine: Denies: no symptoms, excessive sweating, flushing, intolerance to cold, intolerance to heat, increased hunger, increased thirst, increased urine, unexplained weight gain, unexplained weight loss, other Hematologic/Lymphatic: Denies: no symptoms, anemia, easy bleeding, easy bruising, other Allergies: Coded Allergies: RISPERIDONE (Verified Allergy, Intermediate, 04/27/16) Subjective 04/29: tolerating iv iron very well, h/h pending from today, will re-order cbc 04/30: Pt awake and alert. On NC. S/P blood tx, Hgb improved to 9.5. WBC remains elevated, afebrile, on abx. 05/02: no events breathing better Objective Last 24 Hour Vital Signs Date Time Temp Pulse Resp B/P (MAP) Pulse Ox O2 Delivery O2 Flow Rate FiO2 05/02/18 21:00 Nasal Cannula 3.0 Nasal Cannula 3.0 Nasal Cannula 3.0 Nasal Cannula 3.0 05/02/18 20:00 98.6 61 20 103/66 (78) 96 05/02/18 19:17 98 Nasal Cannula 2.0 28 05/02/18 19:17 Nasal Cannula 2.0 28 05/02/18 19:16 119 20 98 Nasal Cannula 2.0 28 05/02/18 19:05 117 20 98 Nasal Cannula 2.0 28 05/02/18 16:00 97.2 73 21 126/76 (93) 97 05/02/18 12:52 72 22 97 Nasal Cannula 3.0 32 05/02/18 12:39 73 24 93 Nasal Cannula 3.0 32 05/02/18 12:00 97.4 69 18 132/68 (89) 97 05/02/18 09:07 71 18 94 Nasal Cannula 2.0 28 05/02/18 09:07 69 18 94 Nasal Cannula 2.0 28 05/02/18 09:00 Nasal Cannula 3.0 Nasal Cannula 3.0 Nasal Cannula 3.0 Nasal Cannula 3.0 05/02/18 08:10 70 17 97 Nasal Cannula 3.0 32 05/02/18 08:00 97.9 71 19 120/51 (74) 97 05/02/18 07:56 92 Nasal Cannula 3.0 32 05/02/18 07:56 66 16 92 Nasal Cannula 3.0 32 05/02/18 07:56 Nasal Cannula 2.0 28 05/02/18 04:00 97.9 97 22 108/53 (71) 05/02/18 00:46 100 05/02/18 00:25 Nasal Cannula 3.0 32 05/02/18 00:25 Nasal Cannula 3.0 32 05/02/18 00:00 97.7 123 24 94/50 (65) 05/01/18 21:24 115 22 98 Nasal Cannula 3.0 32 05/01/18 21:16 Nasal Cannula 2.0 28 05/01/18 21:16 88 Nasal Cannula 3.0 32 05/01/18 21:15 110 23 88 Nasal Cannula 3.0 32 Intake and Output 05/01/18 05/02/18 19:00 07:00 Intake Total 30766.500 ml 437.5 ml Output Total 1750 ml Balance 19901.500 ml -1312.5 ml Intake Oral 240 ml 240 ml IV Total 97514.500 ml 197.5 ml Output Urine Total 1750 ml # Voids 2 1 # Bowel Movements 1 Laboratory Tests 05/02/18 12:25: White Blood Count 13.9H, Red Blood Count 2.83L, Hemoglobin 8.2L, Hematocrit 25.3L, Mean Corpuscular Volume 90, Mean Corpuscular Hemoglobin 28.9, Mean Corpuscular Hemoglobin Concent 32.3, Red Cell Distribution Width 15.8H, Platelet Count 244, Mean Platelet Volume 6.5, Neutrophils (%) (Auto) , Lymphocytes (%) (Auto) , Monocytes (%) (Auto) , Eosinophils (%) (Auto) , Basophils (%) (Auto) , Differential Total Cells Counted 100, Neutrophils % ( Manual) 88H, Lymphocytes % (Manual) 6L, Monocytes % (Manual) 3, Eosinophils % ( Manual) 3, Basophils % (Manual) 0, Band Neutrophils 0, Platelet Estimate Adequate, Platelet Morphology Normal, Hypochromasia 1+, Anisocytosis 1+, Sodium Level 138, Potassium Level 3.7, Chloride Level 104, Carbon Dioxide Level 23, Anion Gap 11, Blood Urea Nitrogen 15, Creatinine 1.9H, Estimat Glomerular Filtration Rate , Glucose Level 119H, Uric Acid 4.6, Calcium Level 8.6, Phosphorus Level 3.6, Magnesium Level 2.0, Total Bilirubin 0.5, Aspartate Amino Transf (AST/SGOT) 34, Alanine Aminotransferase (ALT/SGPT) 15, Alkaline Phosphatase 85, Ammonia 25, Pro-B-Type Natriuretic Peptide [id number], Total Protein 5.7L, Albumin 1.8L, Globulin 3.9, Albumin/Globulin Ratio 0.5L Height (Feet): 5 Height (Inches): 7.00 Weight (Pounds): 156 General Appearance: alert EENT: TMs normal Neck: normal alignment Cardiovascular: regularly irregular Respiratory/Chest: no respiratory distress Abdomen: no organomegaly Edema: trace edema Neurologic: oriented x 3 Skin: warm/dry Nick Bishop MD May 02, 2018 21:12
[2018-05-02] MEDS: Iron Sucrose 100 MG in NS 55 ML IVPB SCH (21:44)
[2018-05-02] MEDS: Sennosides 8.6mg tab ORAL SCH (21:53)
[2018-05-02] MEDS: Miralax 17gm pkt ORAL SCH (21:54)
[2018-05-03] VITALS (7 sets, daily range): BP systolic 91–107; BP diastolic 50–67
[2018-05-03] MEDS: Albuterol/Ipratropium 3ml neb HHN SCH ×6 (01:57→23:00)
[2018-05-03] MEDS: Piperacillin/Tazobactam 3.375 GM in D5W 110 ML IVPB SCH ×3 (06:00→22:31)
[2018-05-03] MEDS: Aspirin Baby 81mg ORAL SCH (09:00)
[2018-05-03] MEDS: Memantine 5 MG TAB ORAL SCH ×2 (09:00→18:00)
[2018-05-03] MEDS: Lactulose 10gm/15ml UDC ORAL SCH ×4 (09:00→18:00)
[2018-05-03] MEDS: Heparin 5000 units/ml inj SUBQ SCH ×3 (09:00→21:00)
[2018-05-03] MEDS: ZyPREXA Zydis 5mg tab ORAL SCH ×2 (09:00→18:00)
[2018-05-03] MEDS: Docusate 100mg cap ORAL SCH ×2 (09:00→18:00)
[2018-05-03] MEDS ORDERED: Sodium Chloride 500ML 500 ML IV ONE (09:30)
[2018-05-03] MEDS ORDERED: Albumin Human 5% 250ml IV ONE (10:00)
--- NOTE | 2018-05-03 10:40 | Infectious Diseases Prog Note ---
Assessment/Plan Assessment/Plan A: Sepsis, improving- likely from intraabdominal source and PNA- Lung opacities- r/o inefctions vs malignancy -sp cx PSA and yeast -CT Chest: Severe emphysema with masslike opacity in the left upper lobe and nodular opacity in the medial left lower lobe. Findings may be related to pneumonia although underlying scarring/fibrotic change or neoplasm/malignancy cannot be excluded. Recommend clinical correlation and short-term interval follow-up imaging after appropriate treatment to assess for resolution. Evidence of prior granulomatous exposure with scattered calcified granulomas and calcified hilar or mediastinal lymph nodes. Trace pleural effusions versus pleural thickening. u/a neg Bcx NTD CXR: Ill-defined airspace opacity at the left apex and right perihilar to mid area not significantly changed in appearance may represent multifocal pneumonia. Ill-defined 2 cm nodular density at the medial left lower lung concerning for lesion partially imaged on CT of the abdomen and pelvis. Difficult to exclude a 1.4 cm ill-defined lesion at the right apex superimposed over the posterior right fourth rib. Sequela of previous granulomatous disease and hyperinflation, emphysematous change of the left mid to lower lung again noted -neg HIV ab sc Coffee ground emesis Abdominal pain- ileus vs SBP -KUB: 1Diffuse gaseous distention of large and small bowel loops, nonspecific. This may suggest ileus or partial obstruction. Fecal retention in the right colon, which may suggest constipation. -CT ab/p p Afebrile Leukocytosis, improving Recent PNA, s/p Rx -04/17 sp cx MRSA, PsA (franklin S) -influenz sc neg - HIV : neg GERD DM2 HTN COPD SN[facility] resident anemia BPH PVD cachectic DNR Plan: -Continue empiric Zosyn # / -21 and IV Vancomycin # 4 ( may stop soon ) -04/22 SP PO Levaquin and Linezolid #7 -04/16 SP Augmentin #1 -f/u CT abd./p ( as per Gens[facility] no Obstruction ) -f/u cx -Monitor CBC/CMP, temperatures -GI, Sx fu -aspiration precautions -f/u Cocci ab, CrAg, fungitell Subjective Allergies: Coded Allergies: RISPERIDONE (Verified Allergy, Intermediate, 04/27/16) Subjective comfortable Objective Vital Signs Last 24 Hour Vital Signs Date Time Temp Pulse Resp B/P (MAP) Pulse Ox O2 Delivery O2 Flow Rate FiO2 05/03/18 08:01 85 20 98 Nasal Cannula 2.0 28 05/03/18 08:00 98.2 130 27 97/63 (74) 92 05/03/18 07:51 76 18 96 Nasal Cannula 3.0 32 05/03/18 07:51 97 Nasal Cannula 2.0 28 05/03/18 07:51 Nasal Cannula 2.0 28 05/03/18 04:00 98.1 102 20 99/52 (68) 94 05/03/18 02:07 112 20 97 Nasal Cannula 2.0 28 05/03/18 01:57 110 20 95 Nasal Cannula 2.0 28 05/03/18 00:00 97.8 90 20 98/51 (67) 92 05/02/18 22:57 118 20 Nasal Cannula 2.0 28 05/02/18 21:00 Nasal Cannula 3.0 Nasal Cannula 3.0 Nasal Cannula 3.0 Nasal Cannula 3.0 05/02/18 20:00 98.6 61 20 103/66 (78) 96 05/02/18 19:17 98 Nasal Cannula 2.0 28 05/02/18 19:17 Nasal Cannula 2.0 28 05/02/18 19:16 119 20 98 Nasal Cannula 2.0 28 05/02/18 19:05 117 20 98 Nasal Cannula 2.0 28 05/02/18 16:00 97.2 73 21 126/76 (93) 97 05/02/18 12:52 72 22 97 Nasal Cannula 3.0 32 05/02/18 12:39 73 24 93 Nasal Cannula 3.0 32 05/02/18 12:00 97.4 69 18 132/68 (89) 97 Height (Feet): 5 Height (Inches): 7.00 Weight (Pounds): 156 HEENT: anicteric Respiratory/Chest: no respiratory distress Cardiovascular: regular rhythm Abdomen: no organomegaly Microbiology Date/Time Source Procedure Growth Status 04/30/18 21:30 Sputum Induced Gram Stain - Final Resulted 04/30/18 21:30 Sputum Culture - Preliminary Pseudomonas Aeruginosa YEAST Resulted 05/01/18 19:13 Indwelling Cath Urine Culture - Final NO GROWTH AFTER 48 HOURS Complete Laboratory Tests Test 05/02/18 12:25 05/03/18 06:00 White Blood Count 13.9 K/UL (4.8-10.8) H Red Blood Count 2.83 M/UL (4.70-6.10) L Hemoglobin 8.2 G/DL (14.2-18.0) L Hematocrit 25.3 % (42.0-52.0) L Mean Corpuscular Volume 90 FL (80-99) Mean Corpuscular Hemoglobin 28.9 PG (27.0-31.0) Mean Corpuscular Hemoglobin Concent 32.3 G/DL (32.0-36.0) Red Cell Distribution Width 15.8 % (11.6-14.8) H Platelet Count 244 K/UL (150-450) Mean Platelet Volume 6.5 FL (6.5-10.1) Neutrophils (%) (Auto) % (45.0-75.0) Lymphocytes (%) (Auto) % (20.0-45.0) Monocytes (%) (Auto) % (1.0-10.0) Eosinophils (%) (Auto) % (0.0-3.0) Basophils (%) (Auto) % (0.0-2.0) Differential Total Cells Counted 100 Neutrophils % (Manual) 88 % (45-75) H Lymphocytes % (Manual) 6 % (20-45) L Monocytes % (Manual) 3 % (1-10) Eosinophils % (Manual) 3 % (0-3) Basophils % (Manual) 0 % (0-2) Band Neutrophils 0 % (0-8) Platelet Estimate Adequate Platelet Morphology Normal Hypochromasia 1+ Anisocytosis 1+ Sodium Level 138 MMOL/L (136-145) Potassium Level 3.7 MMOL/L (3.5-5.1) Chloride Level 104 MMOL/L (98-107) Carbon Dioxide Level 23 MMOL/L (21-32) Anion Gap 11 mmol/L (5-15) Blood Urea Nitrogen 15 mg/dL (7-18) Creatinine 1.9 MG/DL (0.55-1.30) H Estimat Glomerular Filtration Rate mL/min (>60) Glucose Level 119 MG/DL (74-106) H Uric Acid 4.6 MG/DL (2.6-7.2) Calcium Level 8.6 MG/DL (8.5-10.1) Phosphorus Level 3.6 MG/DL (2.5-4.9) Magnesium Level 2.0 MG/DL (1.8-2.4) Total Bilirubin 0.5 MG/DL (0.2-1.0) Aspartate Amino Transf (AST/SGOT) 34 U/L (15-37) Alanine Aminotransferase (ALT/SGPT) 15 U/L (12-78) Alkaline Phosphatase 85 U/L (46-116) Ammonia 25 umol/L (11-32) Pro-B-Type Natriuretic Peptide 51939 pg/mL (0-125) H Total Protein 5.7 G/DL (6.4-8.2) L Albumin 1.8 G/DL (3.4-5.0) L Globulin 3.9 g/dL Albumin/Globulin Ratio 0.5 (1.0-2.7) L Urine Legionella Antigen Pending Current Medications Medications (Trade) Dose Ordered Sig/Amish Route PRN Reason Start Time Stop Time Status Last Admin Dose Admin Acetylcysteine (Mucomyst) 100 mg Q3HRT HHN 05/03/18 10:30 06/02/18 12:59 Albuterol/ Ipratropium (Albuterol/ Ipratropium) 3 ml Q4H PRN HHN Shortness of Breath 04/30/18 21:00 05/05/18 20:59 Albuterol/ Ipratropium (Albuterol/ Ipratropium) 3 ml Q4HRT HHN 05/03/18 11:00 05/08/18 10:59 Aspirin (ASA) 81 mg DAILY ORAL 04/26/18 09:00 05/26/18 08:59 04/30/18 08:51 Atorvastatin Calcium (Lipitor) 10 mg BEDTIME ORAL 05/01/18 21:00 05/26/18 20:59 05/02/18 21:53 Bisacodyl (Dulcolax) 10 mg DAILYPRN PRN RECTAL Constipation 04/26/18 02:30 05/26/18 02:29 04/27/18 21:06 Docusate Sodium (Colace) 100 mg TWICE A DAY ORAL 04/26/18 09:00 05/26/18 08:59 05/01/18 18:25 Heparin Sodium (Porcine) (Heparin 5000 units/ml) 5,000 units EVERY 12 HOURS SUBQ 04/26/18 09:00 05/26/18 08:59 05/02/18 21:55 Iopamidol (Isovue-300 100ml) 100 ml NOW PRN INJ Radiology Procedure 04/25/18 19:30 Iron Sucrose 100 mg/Sodium Chloride 60 ml @ 240 mls/hr BEDTIME IVPB 04/29/18 21:00 05/03/18 21:14 05/02/18 21:44 Lactulose (Cephulac) 20 gm THREE TIMES A DAY ORAL 04/27/18 09:00 05/26/18 08:59 05/01/18 15:03 Lorazepam (Ativan) 1 mg Q6H PRN ORAL For Anxiety 04/30/18 08:15 05/07/18 08:14 Magnesium Hydroxide (Mom) 30 ml HSPRN PRN ORAL Constipation 04/26/18 02:30 05/26/18 02:29 Memantine (Namenda) 5 mg BID ORAL 04/26/18 18:00 05/26/18 17:59 05/01/18 18:25 Olanzapine (ZyPREXA Zydis) 5 mg BID ORAL 04/26/18 18:00 05/26/18 17:59 05/01/18 18:25 Ondansetron HCl (Zofran) 4 mg Q4H PRN IVP Nausea & Vomiting 04/26/18 02:15 05/26/18 02:14 04/29/18 18:34 Pantoprazole (Protonix) 40 mg BID ORAL 05/01/18 18:00 05/26/18 06:29 05/01/18 18:25 Piperacillin Sod/ Tazobactam Sod 3.375 gm/Dextrose 110 ml @ 27.5 mls/hr EVERY 8 HOURS IVPB 04/26/18 11:30 05/05/18 23:59 05/02/18 15:13 Polyethylene Glycol (Miralax) 17 gm BEDTIME ORAL 04/26/18 21:00 05/26/18 20:59 05/02/18 21:54 Sennosides (Senokot) 17.2 mg BEDTIME ORAL 04/26/18 21:00 05/26/18 20:59 05/02/18 21:53 Sodium Phosphate (Fleet's Sodium Phosl Enema) 133 ml QOD PRN RECTAL Constipation 04/26/18 02:30 05/26/18 02:29 04/28/18 02:21 Tiotropium [place] (Spiriva Inhaler) 1 puff DAILY INH 04/26/18 09:00 05/26/18 08:59 05/02/18 09:03 Vancomycin HCl (Vanco rx to dose) 1 ea DAILY PRN MISC Per rx protocol 04/30/18 11:30 05/30/18 11:29 Vancomycin HCl/ Dextrose 250 ml @ 166.667 mls/hr Q24H IVPB 05/01/18 11:00 05/06/18 10:59 05/02/18 12:33 Solomon Candelaria MD May 03, 2018 10:40
--- NOTE | 2018-05-03 10:41 | Diagnostic Imaging Report ---
EXAM: XR Abdomen, 1 View CLINICAL HISTORY: ABD DIST TECHNIQUE: Frontal supine view of the abdomen/pelvis. COMPARISON: No relevant prior studies available. FINDINGS: Gastrointestinal tract: Gaseous distention of the stomach and bowel. Bones/joints: No acute fracture. Lung bases: Pulmonary hyperinflation/emphysema. Consolidative atelectasis and scarring and small nodules. IMPRESSION: Gaseous distention of the stomach and bowel.
--- NOTE | 2018-05-03 12:23 | General Surgery Progress Note ---
General Surgery-Progress Note Subjective Additional Comments no acute events. KUB noted. Objective Last 24 Hour Vital Signs Date Time Temp Pulse Resp B/P (MAP) Pulse Ox O2 Delivery O2 Flow Rate FiO2 05/03/18 11:34 88 20 98 Nasal Cannula 2.0 28 05/03/18 11:22 85 18 97 Nasal Cannula 3.0 32 05/03/18 10:00 Nasal Cannula 05/03/18 10:00 Nasal Cannula 05/03/18 08:01 85 20 98 Nasal Cannula 2.0 28 05/03/18 08:00 98.2 130 27 97/63 (74) 92 05/03/18 07:51 76 18 96 Nasal Cannula 3.0 32 05/03/18 07:51 97 Nasal Cannula 2.0 28 05/03/18 07:51 Nasal Cannula 2.0 28 05/03/18 04:00 98.1 102 20 99/52 (68) 94 05/03/18 02:07 112 20 97 Nasal Cannula 2.0 28 05/03/18 01:57 110 20 95 Nasal Cannula 2.0 28 05/03/18 00:00 97.8 90 20 98/51 (67) 92 05/02/18 22:57 118 20 Nasal Cannula 2.0 28 05/02/18 21:00 Nasal Cannula 3.0 Nasal Cannula 3.0 Nasal Cannula 3.0 Nasal Cannula 3.0 05/02/18 20:00 98.6 61 20 103/66 (78) 96 05/02/18 19:17 98 Nasal Cannula 2.0 28 05/02/18 19:17 Nasal Cannula 2.0 05/02/18 19:16 119 20 98 Nasal Cannula 2.0 05/02/18 19:05 117 20 98 Nasal Cannula 2.0 28 05/02/18 16:00 97.2 73 21 126/76 (93) 97 05/02/18 12:52 72 22 97 Nasal Cannula 3.0 32 05/02/18 12:39 73 24 93 Nasal Cannula 3.0 32 I&O Intake and Output 05/02/18 05/03/18 19:00 07:00 Intake Total 1052.500 ml 87.5 ml Output Total 800 ml 100 ml Balance 252.500 ml -12.5 ml Intake Oral 720 ml IV Total 332.500 ml 87.5 ml Output Urine Total 800 ml 100 ml Drains: none Cardiovascular: RSR Respiratory: clear Abdomen: soft, distended, non-tender, present bowel sounds Extremities: no cyanosis Laboratory Tests Test 05/02/18 12:25 05/03/18 06:00 White Blood Count 13.9 K/UL (4.8-10.8) H Red Blood Count 2.83 M/UL (4.70-6.10) L Hemoglobin 8.2 G/DL (14.2-18.0) L Hematocrit 25.3 % (42.0-52.0) L Mean Corpuscular Volume 90 FL (80-99) Mean Corpuscular Hemoglobin 28.9 PG (27.0-31.0) Mean Corpuscular Hemoglobin Concent 32.3 G/DL (32.0-36.0) Red Cell Distribution Width 15.8 % (11.6-14.8) H Platelet Count 244 K/UL (150-450) Mean Platelet Volume 6.5 FL (6.5-10.1) Neutrophils (%) (Auto) % (45.0-75.0) Lymphocytes (%) (Auto) % (20.0-45.0) Monocytes (%) (Auto) % (1.0-10.0) Eosinophils (%) (Auto) % (0.0-3.0) Basophils (%) (Auto) % (0.0-2.0) Differential Total Cells Counted 100 Neutrophils % (Manual) 88 % (45-75) H Lymphocytes % (Manual) 6 % (20-45) L Monocytes % (Manual) 3 % (1-10) Eosinophils % (Manual) 3 % (0-3) Basophils % (Manual) 0 % (0-2) Band Neutrophils 0 % (0-8) Platelet Estimate Adequate Platelet Morphology Normal Hypochromasia 1+ Anisocytosis 1+ Sodium Level 138 MMOL/L (136-145) Potassium Level 3.7 MMOL/L (3.5-5.1) Chloride Level 104 MMOL/L (98-107) Carbon Dioxide Level 23 MMOL/L (21-32) Anion Gap 11 mmol/L (5-15) Blood Urea Nitrogen 15 mg/dL (7-18) Creatinine 1.9 MG/DL (0.55-1.30) H Estimat Glomerular Filtration Rate mL/min (>60) Glucose Level 119 MG/DL (74-106) H Uric Acid 4.6 MG/DL (2.6-7.2) Calcium Level 8.6 MG/DL (8.5-10.1) Phosphorus Level 3.6 MG/DL (2.5-4.9) Magnesium Level 2.0 MG/DL (1.8-2.4) Total Bilirubin 0.5 MG/DL (0.2-1.0) Aspartate Amino Transf (AST/SGOT) 34 U/L (15-37) Alanine Aminotransferase (ALT/SGPT) 15 U/L (12-78) Alkaline Phosphatase 85 U/L (46-116) Ammonia 25 umol/L (11-32) Pro-B-Type Natriuretic Peptide 43789 pg/mL (0-125) H Total Protein 5.7 G/DL (6.4-8.2) L Albumin 1.8 G/DL (3.4-5.0) L Globulin 3.9 g/dL Albumin/Globulin Ratio 0.5 (1.0-2.7) L Urine Legionella Antigen Pending Plan Problems: (1) Abdominal pain Assessment & Plan: abdominal pain. nausea. coffee ground emesis. leukocytosis. labs noted exam benign. abd soft, nt/nd, bs+ CT without obstruction as per report fecal impaction s/p EGD given KUB will order CT with oral contrast to be sure no obstruction -no acute surgical intervention planned -okay for diet -bowel regimen -appreciate GI input thank you will follow with recs. Ilia Rossi May 03, 2018 12:23
[2018-05-03] MEDS ORDERED: Gastrograffin 30ml ORAL PRN (12:30)
--- NOTE | 2018-05-03 14:28 | Nephrology Progress Note ---
Assessment/Plan Problem List: (1) Acute renal failure (2) Anemia (3) Hypokalemia Assessment episode of Low BP leading to rise of Cr 1.3 to 1.8 - Acute renal failure- Anemia Hypokalemia HypoAlbuminemia Plan today's labs pending- refuses blood drawn Urine studies fluid chalenge Cortés Monitor renal parameters ? Hospice?? Subjective ROS Limited/Unobtainable: No Constitutional: Reports: malaise, weakness Objective Objective Last 24 Hour Vital Signs Date Time Temp Pulse Resp B/P (MAP) Pulse Ox O2 Delivery O2 Flow Rate FiO2 05/03/18 11:34 88 20 98 Nasal Cannula 2.0 28 05/03/18 11:22 85 18 97 Nasal Cannula 3.0 32 05/03/18 10:00 Nasal Cannula 05/03/18 10:00 Nasal Cannula 05/03/18 08:01 85 20 98 Nasal Cannula 2.0 28 05/03/18 08:00 98.2 130 27 97/63 (74) 92 05/03/18 07:51 76 18 96 Nasal Cannula 3.0 32 05/03/18 07:51 97 Nasal Cannula 2.0 28 05/03/18 07:51 Nasal Cannula 2.0 05/03/18 04:00 98.1 102 20 99/52 (68) 94 05/03/18 02:07 112 20 97 Nasal Cannula 2.0 05/03/18 01:57 110 20 95 Nasal Cannula 2.0 28 05/03/18 00:00 97.8 90 20 98/51 (67) 92 05/02/18 22:57 118 20 Nasal Cannula 2.0 05/02/18 21:00 Nasal Cannula 3.0 Nasal Cannula 3.0 Nasal Cannula 3.0 Nasal Cannula 3.0 05/02/18 20:00 98.6 61 20 103/66 (78) 96 05/02/18 19:17 98 Nasal Cannula 2.0 05/02/18 19:17 Nasal Cannula 2.0 05/02/18 19:16 119 20 98 Nasal Cannula 2.0 28 05/02/18 19:05 117 20 98 Nasal Cannula 2.0 28 05/02/18 16:00 97.2 73 21 126/76 (93) 97 Intake and Output 05/02/18 05/03/18 19:00 07:00 Intake Total 1052.500 ml 87.5 ml Output Total 800 ml 100 ml Balance 252.500 ml -12.5 ml Intake Oral 720 ml IV Total 332.500 ml 87.5 ml Output Urine Total 800 ml 100 ml Laboratory Tests 05/03/18 06:00: Urine Legionella Antigen [Pending] Height (Feet): 5 Height (Inches): 7.00 Weight (Pounds): 156 General Appearance: no apparent distress, lethargic Cardiovascular: tachycardia Respiratory/Chest: decreased breath sounds Abdomen: distended Cheo Balderrama MD May 03, 2018 14:28
--- NOTE | 2018-05-03 15:13 | Cardiac Electrophysiology PN ---
Assessment/Plan Assessment/Plan 1. HTN, BP 90s off any BP meds 2. COPD, PNA on abx and nasal cannula. FU DR Sánchez 3. Intractable vomiting Fu Dr Sy and Flo. CT abdomen is pending 4. Chest pain, atypical 5. DM2 DW RN Subjective Subjective Had rapid response due to hypoxia. No CP. Refused labs and po meds. Now awaiting CT abdomen without contrast that was ordered by Dr Rossi. Objective Last 24 Hour Vital Signs Date Time Temp Pulse Resp B/P (MAP) Pulse Ox O2 Delivery O2 Flow Rate FiO2 05/03/18 14:58 78 20 98 Nasal Cannula 2.0 05/03/18 14:46 82 18 95 Nasal Cannula 3.0 32 05/03/18 11:34 88 20 98 Nasal Cannula 2.0 28 05/03/18 11:22 85 18 97 Nasal Cannula 3.0 32 05/03/18 10:00 Nasal Cannula 05/03/18 10:00 Nasal Cannula 05/03/18 08:01 85 20 98 Nasal Cannula 2.0 05/03/18 08:00 98.2 130 27 97/63 (74) 92 05/03/18 07:51 76 18 96 Nasal Cannula 3.0 32 05/03/18 07:51 97 Nasal Cannula 2.0 05/03/18 07:51 Nasal Cannula 2.0 28 05/03/18 04:00 98.1 102 20 99/52 (68) 94 05/03/18 02:07 112 20 97 Nasal Cannula 2.0 05/03/18 01:57 110 20 95 Nasal Cannula 2.0 05/03/18 00:00 97.8 90 20 98/51 (67) 92 05/02/18 22:57 118 20 Nasal Cannula 2.0 28 05/02/18 21:00 Nasal Cannula 3.0 Nasal Cannula 3.0 Nasal Cannula 3.0 Nasal Cannula 3.0 05/02/18 20:00 98.6 61 20 103/66 (78) 96 05/02/18 19:17 98 Nasal Cannula 2.0 28 05/02/18 19:17 Nasal Cannula 2.0 28 05/02/18 19:16 119 20 98 Nasal Cannula 2.0 05/02/18 19:05 117 20 98 Nasal Cannula 2.0 05/02/18 16:00 97.2 73 21 126/76 (93) 97 Intake and Output 05/02/18 05/03/18 19:00 07:00 Intake Total 1052.500 ml 87.5 ml Output Total 800 ml 100 ml Balance 252.500 ml -12.5 ml Intake Oral 720 ml IV Total 332.500 ml 87.5 ml Output Urine Total 800 ml 100 ml Laboratory Tests Test 05/03/18 06:00 05/03/18 14:25 Urine Legionella Antigen Pending Vancomycin Level Trough Pending Microbiology Date/Time Source Procedure Growth Status 04/30/18 21:30 Sputum Induced Gram Stain - Final Resulted 04/30/18 21:30 Sputum Culture - Preliminary Pseudomonas Aeruginosa YEAST Resulted 05/01/18 19:13 Indwelling Cath Urine Culture - Final NO GROWTH AFTER 48 HOURS Complete Objective HEENT: No JVD . Cardiovascular: normal rate, regular rhythm Respiratory/Chest: Coarse rhonchi Abdomen: soft, no organomegaly Extremities: no swelling Ralph Loomis MD May 03, 2018 15:13
--- NOTE | 2018-05-03 15:34 | General Progress Note ---
Assessment/Plan Status: stable Assessment/Plan Covering for Kaitlin Joseph # Masslike opacity in the left upper lobe and nodular opacity in the medial left lower lobe. Findings may be related to pneumonia although underlying scarring/fibrotic change or neoplasm/malignancy cannot be excluded. Recommend clinical correlation and short-term interval follow-up imaging after appropriate treatment to assess for resolution. Evidence of prior granulomatous exposure with scattered calcified granulomas and calcified hilar or mediastinal lymph nodes. Trace pleural effusions versus pleural thickening. --> would repeat ct chest in 3 months --> if growing, enlarged, consider a ct guided bx # Anemia of iron deficiency is likely related to gi bleed --> anemia panel has been reviewed --> transfuse if hgb <7 --> iv iron has been started --> egd was completed and shows gastritis, distal esophagitis is on ppi --> Blood tx: 04/29, # Leukocytosis likely reactive process from anemia --> ID is following, appreciate rcs. --> Monitor and trend wbc for improvement --> WBC remains elevated --> Remains on abx. # GERD, continue on ppi # DM2, # HTN, # COPD # Emesis # Tachycardia # Chest pain, atypical angina Subjective Date patient seen: May 03, 2018 Hematologic/Lymphatic: Reports: anemia Allergies: Coded Allergies: RISPERIDONE (Verified Allergy, Intermediate, 04/27/16) All Systems: reviewed and negative except above Subjective 04/29: tolerating iv iron very well, h/h pending from today, will re-order cbc 04/30: Pt awake and alert. On NC. S/P blood tx, Hgb improved to 9.5. WBC remains elevated, afebrile, on abx. 05/02: no events breathing better 05/03: Pt awake and alert. Pt refusing care. Objective Last 24 Hour Vital Signs Date Time Temp Pulse Resp B/P (MAP) Pulse Ox O2 Delivery O2 Flow Rate FiO2 05/03/18 14:58 78 20 98 Nasal Cannula 2.0 05/03/18 14:46 82 18 95 Nasal Cannula 3.0 05/03/18 11:34 88 20 98 Nasal Cannula 2.0 05/03/18 11:22 85 18 97 Nasal Cannula 3.0 32 05/03/18 10:00 Nasal Cannula 05/03/18 10:00 Nasal Cannula 05/03/18 08:01 85 20 98 Nasal Cannula 2.0 28 05/03/18 08:00 98.2 130 27 97/63 (74) 92 05/03/18 07:51 76 18 96 Nasal Cannula 3.0 32 05/03/18 07:51 97 Nasal Cannula 2.0 28 05/03/18 07:51 Nasal Cannula 2.0 28 05/03/18 04:00 98.1 102 20 99/52 (68) 94 05/03/18 02:07 112 20 97 Nasal Cannula 2.0 28 05/03/18 01:57 110 20 95 Nasal Cannula 2.0 28 05/03/18 00:00 97.8 90 20 98/51 (67) 92 05/02/18 22:57 118 20 Nasal Cannula 2.0 28 05/02/18 21:00 Nasal Cannula 3.0 Nasal Cannula 3.0 Nasal Cannula 3.0 Nasal Cannula 3.0 05/02/18 20:00 98.6 61 20 103/66 (78) 96 05/02/18 19:17 98 Nasal Cannula 2.0 28 05/02/18 19:17 Nasal Cannula 2.0 28 05/02/18 19:16 119 20 98 Nasal Cannula 2.0 28 05/02/18 19:05 117 20 98 Nasal Cannula 2.0 28 05/02/18 16:00 97.2 73 21 126/76 (93) 97 Intake and Output 05/02/18 05/03/18 19:00 07:00 Intake Total 1052.500 ml 87.5 ml Output Total 800 ml 100 ml Balance 252.500 ml -12.5 ml Intake Oral 720 ml IV Total 332.500 ml 87.5 ml Output Urine Total 800 ml 100 ml Laboratory Tests 05/03/18 06:00: Urine Legionella Antigen [Pending] 05/03/18 14:25: Vancomycin Level Trough 19.3H Height (Feet): 5 Height (Inches): 7.00 Weight (Pounds): 156 Nick Bishop MD May 03, 2018 15:34
--- NOTE | 2018-05-03 18:04 | Pulmonology Progress Note ---
Assessment/Plan Assessment/Plan Pulmonary Progress Note REASON FOR CONSULTATION: Chronic obstructive pulmonary disease and lung mass. HISTORY OF PRESENT ILLNESS: The patient is an 83-year-old male, former smoker, recently admitted with pneumonia, now readmitted with coffee-grounds emesis status post EGD consistent with gastritis. The patient had increased work of breathing and shortness of breath yesterday as well as hypotension, which responded somewhat to intravenous fluids. A CT of the chest was done given persistent opacities on chest x-ray, which showed a left upper lobe masslike opacity with left lower lobe nodular opacities. For this reason, pulmonary consultation was called. The patient is a poor historian, but does note cough and shortness of breath. No fevers or chills. No chest pain or other complaints. PAST MEDICAL HISTORY: 1. COPD. 2. GERD. 3. Diabetes. 4. Hypertension. 5. Anemia. 6. BPH. 7. Peripheral vascular disease. 8. Cachexia. 9. SN[facility] resident. ALLERGIES: Risperidone. MEDICATIONS: Prior to admission medications reviewed. Current medications reviewed. SOCIAL HISTORY: Known tobacco use. Unknown drug or alcohol. FAMILY HISTORY: Noncontributory. REVIEW OF SYSTEMS: Negative. PHYSICAL EXAMINATION: VITAL SIGNS NOTED GENERAL: Frail elderly cachectic male, mild distress HEENT: Normocephalic and atraumatic. Oropharynx is clear with moist mucous membranes. NECK: Supple without lymphadenopathy or jugular venous distention. CHEST: Distant. Scattered coarse. HEART: Regular rate and rhythm. ABDOMEN: Soft, nontender, nondistended. EXTREMITIES: No cyanosis, clubbing or edema. ANCILLARY DATA: White count 17, hemoglobin 7.9, and platelet count 224. ABG 7.37/38/68/22. Sodium 137, potassium 2.9, chloride 102, bicarbonate 24, BUN 14, creatinine 1.8, glucose 130. Lactic acid 1. Uric acid 4.1, calcium 8.8, phosphorus 3.3, magnesium 2.0. Total bilirubin 0.6, AST 17, ALT 12, and alkaline phosphatase 89. Troponin negative. CRP 28. ProBNP 84372. Total protein 6.2. Albumin 2.2. HIV negative. Coxy and crypto are pending. FOBT was positive last. There is no echocardiogram on file. CT of the chest from April 30, 2018 severe emphysematous changes, masslike left upper lobe opacity and nodular left lower lobe opacity, interstitial atelectasis at the bases versus scarring, multiple calcified mediastinal and hilar nodes, multiple spleen calcifications, evidence of prior granulomatous disease. Microbiology reviewed. ASSESSMENT: The patient is an 83-year-old male, known smoker with a history of COPD, schizophrenia, GERD, diabetes, hypertension, anemia, BPH, peripheral vascular disease admitted with coffee-grounds emesis secondary to gastritis now status post endoscopy and treated for pneumonia recently, but CT of the chest showing left upper lobe masslike opacity concerning for possible neoplastic process. CT of the abdomen and pelvis has also been done per report, but I do not see the results at this time. Ultimately, the patient if within his goals of care need a biopsy of his lung mass to rule out neoplasm. I defer to Dr. Bishop and the primary team given the patient's DNR and his goals of care not entirely clear. Optimize his COPD management, tumor markers pending PROBLEM LIST: 1. Recent pneumonia, status post treatment. 2. Left upper lobe masslike opacity. 3. Left lower lobe nodular opacity. 4. Calcified mediastinal and hilar nodes. 5. COPD without evidence of exacerbation. 6. Coffee-ground emesis, GI bleed status post EGD consistent with gastritis, pathology pending. 7. Smoker. 8. Multiple medical problems, COPD, GERD, diabetes, hypertension, anemia, BPH, peripheral vascular disease, cachexia, and schizophrenia. TREATMENT PLAN: 1. We will send off tumor markers. 2. Optimize pulmonary hygiene/mobilize as tolerated. 3. [id number] and p.r.n. bronchodilators. 4. Defer decision on biopsy of left upper lobe mass to Dr. Bishop, and primary food mixer. 5. The patient should have a full pulmonary workup as an outpatient including PFTs if within goals of care. 6. Antibiotics per ID. 7. Monitor volumes and renal function, maintenance IV fluids. 8. Aspiration precautions. 9. DVT prophylaxis, heparin subcutaneous. 10. We will get swallow evaluation. 11. DNAR. Subjective ROS Limited/Unobtainable: No Allergies: Coded Allergies: RISPERIDONE (Verified Allergy, Intermediate, 04/27/16) Objective Last 24 Hour Vital Signs Date Time Temp Pulse Resp B/P (MAP) Pulse Ox O2 Delivery O2 Flow Rate FiO2 05/03/18 17:14 97.9 120 25 91/58 (69) 89 12/29/18 14:58 78 20 98 Nasal Cannula 2.0 28 05/03/18 14:46 82 18 95 Nasal Cannula 3.0 32 05/03/18 12:00 98.2 120 24 107/50 (69) 96 05/03/18 11:34 88 20 98 Nasal Cannula 2.0 28 05/03/18 11:22 85 18 97 Nasal Cannula 3.0 32 05/03/18 10:00 Nasal Cannula 05/03/18 10:00 Nasal Cannula 05/03/18 09:00 Nasal Cannula 3.0 Nasal Cannula 3.0 Nasal Cannula 3.0 05/03/18 08:01 85 20 98 Nasal Cannula 2.0 28 05/03/18 08:00 98.2 130 27 97/63 (74) 92 05/03/18 07:51 76 18 96 Nasal Cannula 3.0 32 05/03/18 07:51 97 Nasal Cannula 2.0 28 05/03/18 07:51 Nasal Cannula 2.0 28 05/03/18 04:00 98.1 102 20 99/52 (68) 94 05/03/18 02:07 112 20 97 Nasal Cannula 2.0 28 05/03/18 01:57 110 20 95 Nasal Cannula 2.0 28 05/03/18 00:00 97.8 90 20 98/51 (67) 92 05/02/18 22:57 118 20 Nasal Cannula 2.0 28 05/02/18 21:00 Nasal Cannula 3.0 Nasal Cannula 3.0 Nasal Cannula 3.0 Nasal Cannula 3.0 05/02/18 20:00 98.6 61 20 103/66 (78) 96 05/02/18 19:17 98 Nasal Cannula 2.0 28 05/02/18 19:17 Nasal Cannula 2.0 28 05/02/18 19:16 119 20 98 Nasal Cannula 2.0 28 05/02/18 19:05 117 20 98 Nasal Cannula 2.0 28 Intake and Output 05/02/18 05/03/18 19:00 07:00 Intake Total 1052.500 ml 87.5 ml Output Total 800 ml 100 ml Balance 252.500 ml -12.5 ml Intake Oral 720 ml IV Total 332.500 ml 87.5 ml Output Urine Total 800 ml 100 ml Microbiology Date/Time Source Procedure Growth Status 04/30/18 21:30 Sputum Induced Gram Stain - Final Resulted 04/30/18 21:30 Sputum Culture - Preliminary Pseudomonas Aeruginosa YEAST Resulted 05/01/18 19:13 Indwelling Cath Urine Culture - Final NO GROWTH AFTER 48 HOURS Complete Laboratory Tests 05/03/18 06:00: Urine Legionella Antigen [Pending] 05/03/18 14:25: Vancomycin Level Trough 19.3H Current Medications Medications (Trade) Dose Ordered Sig/Amish Route PRN Reason Start Time Stop Time Status Last Admin Dose Admin Acetylcysteine (Mucomyst) 100 mg Q3HRT HHN 05/03/18 10:30 06/02/18 12:59 05/03/18 14:43 Albuterol/ Ipratropium (Albuterol/ Ipratropium) 3 ml Q4H PRN HHN Shortness of Breath 04/30/18 21:00 05/05/18 20:59 Albuterol/ Ipratropium (Albuterol/ Ipratropium) 3 ml Q4HRT HHN 05/03/18 11:00 05/08/18 10:59 05/03/18 14:43 Aspirin (ASA) 81 mg DAILY ORAL 04/26/18 09:00 05/26/18 08:59 04/30/18 08:51 Atorvastatin Calcium (Lipitor) 10 mg BEDTIME ORAL 05/01/18 21:00 05/26/18 20:59 05/02/18 21:53 Bisacodyl (Dulcolax) 10 mg DAILYPRN PRN RECTAL Constipation 04/26/18 02:30 05/26/18 02:29 04/27/18 21:06 Diatrizoate Meglum/ Diatrizoate Sod (Gastrografin) 30 ml NOW PRN ORAL Radiology Procedure 05/03/18 12:30 05/05/18 12:29 Docusate Sodium (Colace) 100 mg TWICE A DAY ORAL 04/26/18 09:00 05/26/18 08:59 05/01/18 18:25 Heparin Sodium (Porcine) (Heparin 5000 units/ml) 5,000 units EVERY 12 HOURS SUBQ 04/26/18 09:00 05/26/18 08:59 05/02/18 21:55 Iopamidol (Isovue-300 100ml) 100 ml NOW PRN INJ Radiology Procedure 04/25/18 19:30 Iron Sucrose 100 mg/Sodium Chloride 60 ml @ 240 mls/hr BEDTIME IVPB 04/29/18 21:00 05/03/18 21:14 05/02/18 21:44 Lactulose (Cephulac) 20 gm THREE TIMES A DAY ORAL 04/27/18 09:00 05/26/18 08:59 05/01/18 15:03 Linezolid 300 ml @ 300 mls/hr Q12HR IVPB 05/03/18 21:00 05/10/18 20:59 Lorazepam (Ativan) 1 mg Q6H PRN ORAL For Anxiety 04/30/18 08:15 05/07/18 08:14 Magnesium Hydroxide (Mom) 30 ml HSPRN PRN ORAL Constipation 04/26/18 02:30 05/26/18 02:29 Memantine (Namenda) 5 mg BID ORAL 04/26/18 18:00 05/26/18 17:59 05/01/18 18:25 Olanzapine (ZyPREXA Zydis) 5 mg BID ORAL 04/26/18 18:00 05/26/18 17:59 05/01/18 18:25 Ondansetron HCl (Zofran) 4 mg Q4H PRN IVP Nausea & Vomiting 04/26/18 02:15 05/26/18 02:14 04/29/18 18:34 Pantoprazole (Protonix) 40 mg BID ORAL 05/01/18 18:00 05/26/18 06:29 05/01/18 18:25 Piperacillin Sod/ Tazobactam Sod 3.375 gm/Dextrose 110 ml @ 27.5 mls/hr EVERY 8 HOURS IVPB 04/26/18 11:30 05/05/18 23:59 05/03/18 15:32 Polyethylene Glycol (Miralax) 17 gm BEDTIME ORAL 04/26/18 21:00 05/26/18 20:59 05/02/18 21:54 Sennosides (Senokot) 17.2 mg BEDTIME ORAL 04/26/18 21:00 05/26/18 20:59 05/02/18 21:53 Sodium Phosphate (Fleet's Sodium Phosl Enema) 133 ml QOD PRN RECTAL Constipation 04/26/18 02:30 05/26/18 02:29 04/28/18 02:21 Tiotropium Gary (Spiriva Inhaler) 1 puff DAILY INH 04/26/18 09:00 05/26/18 08:59 05/02/18 09:03 Suraj Swift MD May 03, 2018 18:04
--- NOTE | 2018-05-03 18:24 | General Progress Note ---
Assessment/Plan Assessment/Plan Assessment (1) Intractable vomiting ICD Codes: R11.10 - Vomiting, unspecified SNOMED: 019846943, 171440931 Qualifiers: Qualified Codes: R11.2 - Nausea with vomiting, unspecified (2) GERD (gastroesophageal reflux disease) ICD Codes: K21.9 - Gastro-esophageal reflux disease without esophagitis SNOMED: 902860634 (3) Fecal impaction ICD Codes: K56.41 - Fecal impaction SNOMED: 70719557 (4) Anemia ICD Codes: D64.9 - Anemia, unspecified SNOMED: 894164356 (5) Abdominal pain ICD Codes: R10.9 - Unspecified abdominal pain SNOMED: 35366980, 849039455 Qualifiers: Qualified Codes: R10.13 - Epigastric pain (6) Constipation ICD Codes: K59.00 - Constipation, unspecified SNOMED: 45206588 (7) Severe protein-calorie malnutrition ICD Codes: E43 - Unspecified severe protein-calorie malnutrition SNOMED: 614028530 Status: stable, unchanged Assessment/Plan SUMMARY OF FINDINGS: 1. Large hiatal hernia. 2. Minimum distal esophagitis. 3. Gastritis, status post biopsy. RECOMMENDATIONS: 1. Follow up biopsy results. 2. Monitor hemoglobin and hematocrit. Transfuse as needed. 3. Continue on PPI daily given esophagitis. 4. Start diet and advance as tolerated. 5. The patient may benefit from colonoscopy if needed. We will follow closely and make that recommendation later. DC planning Subjective Allergies: Coded Allergies: RISPERIDONE (Verified Allergy, Intermediate, 04/27/16) Subjective above noted feels "OK" no abdominal pain getting Venofer IV Objective Last 24 Hour Vital Signs Date Time Temp Pulse Resp B/P (MAP) Pulse Ox O2 Delivery O2 Flow Rate FiO2 05/03/18 17:14 97.9 120 25 91/58 (69) 89 05/03/18 14:58 78 20 98 Nasal Cannula 2.0 28 05/03/18 14:46 82 18 95 Nasal Cannula 3.0 32 05/03/18 12:00 98.2 120 24 107/50 (69) 96 05/03/18 11:34 88 20 98 Nasal Cannula 2.0 28 05/03/18 11:22 85 18 97 Nasal Cannula 3.0 32 05/03/18 10:00 Nasal Cannula 05/03/18 10:00 Nasal Cannula 05/03/18 09:00 Nasal Cannula 3.0 Nasal Cannula 3.0 Nasal Cannula 3.0 05/03/18 08:01 85 20 98 Nasal Cannula 2.0 28 05/03/18 08:00 98.2 130 27 97/63 (74) 92 05/03/18 07:51 76 18 96 Nasal Cannula 3.0 32 05/03/18 07:51 97 Nasal Cannula 2.0 28 05/03/18 07:51 Nasal Cannula 2.0 28 05/03/18 04:00 98.1 102 20 99/52 (68) 94 05/03/18 02:07 112 20 97 Nasal Cannula 2.0 28 05/03/18 01:57 110 20 95 Nasal Cannula 2.0 28 05/03/18 00:00 97.8 90 20 98/51 (67) 92 05/02/18 22:57 118 20 Nasal Cannula 2.0 28 05/02/18 21:00 Nasal Cannula 3.0 Nasal Cannula 3.0 Nasal Cannula 3.0 Nasal Cannula 3.0 05/02/18 20:00 98.6 61 20 103/66 (78) 96 05/02/18 19:17 98 Nasal Cannula 2.0 28 05/02/18 19:17 Nasal Cannula 2.0 28 05/02/18 19:16 119 20 98 Nasal Cannula 2.0 28 05/02/18 19:05 117 20 98 Nasal Cannula 2.0 28 Intake and Output 05/02/18 05/03/18 19:00 07:00 Intake Total 1052.500 ml 87.5 ml Output Total 800 ml 100 ml Balance 252.500 ml -12.5 ml Intake Oral 720 ml IV Total 332.500 ml 87.5 ml Output Urine Total 800 ml 100 ml Laboratory Tests 05/03/18 06:00: Urine Legionella Antigen [Pending] 05/03/18 14:25: Vancomycin Level Trough 19.3H Height (Feet): 5 Height (Inches): 7.00 Weight (Pounds): 156 Objective WDWN NCAT supple CTA RR abd soft no edema Jeff Tipton MD May 03, 2018 18:24
--- NOTE | 2018-05-03 18:27 | Diagnostic Imaging Report ---
EXAM: CT Abdomen and Pelvis With Intravenous Contrast CLINICAL HISTORY: ABD DIST TECHNIQUE: Axial computed tomography images of the abdomen and pelvis with intravenous contrast. CTDI is 17.6 mGy and DLP is 929 mGy-cm. One or more of the following dose reduction techniques were used: automated exposure control, adjustment of the mA and/or kV according to patient size, use of iterative reconstruction technique. Coronal and sagittal reformatted images were created and reviewed. COMPARISON: 04/25/18 CT abdomen and pelvis FINDINGS: Lung bases: Increasing dependent bilateral atelectasis. Patchy bibasilar dependent airspace opacities and bronchial wall thickening. Bibasilar pronounced emphysematous change. Mediastinum: Small amount of retained enteric contrast within the distal esophagus. 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 Gallbladder and bile ducts: Unremarkable. No calcified stones. No ductal dilation. Pancreas: Unremarkable. No mass. No ductal dilation. Spleen: See above. Adrenals: Unchanged nodular bilateral adrenal thickening since most recent comparison study, attenuation at least 15 Hounsfield units bilaterally. Hazy attenuation around the bilateral adrenal glands. Kidneys and ureters: Unremarkable. No solid mass. No hydronephrosis. Stomach and bowel: Markedly distended stomach. Large colonic stool burden. Nonobstructed loop of small bowel extends and to indirect right inguinal hernia without findings for ischemia. This is a new finding since most recent comparison study. No mucosal thickening. PELVIS: Appendix: No findings to suggest acute appendicitis. Bladder: Cortés catheter within the decompressed urinary bladder. Reproductive: Unremarkable as visualized. ABDOMEN and PELVIS: Intraperitoneal space: Unremarkable. No free air. No significant fluid collection. Bones/joints: Multilevel age-related degenerative spine findings unchanged since most recent comparison study. Minimal grade 1 anterolisthesis L4 on L5. Osteopenia. No acute fracture. No dislocation. Soft tissues: High-density material along the skin surface in the groin of uncertain significance. Correlate clinically. Vasculature: ASVD. Abdominal aortic ectasia. No abdominal aortic aneurysm. Lymph nodes: Unremarkable. No enlarged lymph nodes. IMPRESSION: 1. New nonobstructed small bowel loop extension into right indirect internal hernia, no findings to suggest ischemia or acute abnormality at this time. 2. Findings suggesting bibasilar aspiration, correlate clinically. 3. Bibasilar emphysema could represent alpha-1 antitrypsin deficiency, correlate clinically. 4. Distal esophageal small amount of retained enteric contrast, this could place the patient at risk for aspiration. 5. Unchanged nodular bilateral adrenal thickening, with hazy attenuation, suggesting possible adrenal mild hemorrhage which is of uncertain clinical significance. Correlate with older studies if available to evaluate for stability over time. Consider CT or MRI adrenal glands to further characterize. 6. High-density material along the skin surface in the groin of uncertain significance. Correlate clinically.
[2018-05-03] MEDS ORDERED: Isovue-300 100ml vial INJ PRN (20:00)
[2018-05-03] MEDS: Iron Sucrose 100 MG in NS 55 ML IVPB SCH (20:24)
[2018-05-03] MEDS: Miralax 17gm pkt ORAL SCH (20:24)
[2018-05-03] MEDS: Sennosides 8.6mg tab ORAL SCH (20:26)
[2018-05-03] MEDS: Linezolid 600mg/300mL Premix IVPB SCH (21:15)
[2018-05-04] MEDS: Albuterol/Ipratropium 3ml neb HHN SCH ×4 (03:00→14:36)
[2018-05-04 04:00] VITALS: BP 107/48
[2018-05-04] MEDS: Piperacillin/Tazobactam 3.375 GM in D5W 110 ML IVPB SCH ×3 (05:05→22:00)
[2018-05-04 08:00] VITALS: BP 91/58
[2018-05-04] MEDS: Docusate 100mg cap ORAL SCH ×2 (09:00→17:40)
[2018-05-04] MEDS: ZyPREXA Zydis 5mg tab ORAL SCH ×2 (09:00→17:39)
[2018-05-04] MEDS: Aspirin Baby 81mg ORAL SCH (09:00)
[2018-05-04] MEDS: Lactulose 10gm/15ml UDC ORAL SCH ×3 (09:00→17:40)
[2018-05-04] MEDS: Heparin 5000 units/ml inj SUBQ SCH ×2 (09:00→21:00)
[2018-05-04] MEDS: Memantine 5 MG TAB ORAL SCH ×2 (09:00→17:39)
[2018-05-04] MEDS: Linezolid 600mg/300mL Premix IVPB SCH ×2 (09:11→21:00)
--- NOTE | 2018-05-04 10:20 | Nephrology Progress Note ---
Assessment/Plan Problem List: (1) Acute renal failure (2) Anemia (3) Hypokalemia Assessment episode of Low BP leading to rise of Cr 1.3 to 1.8 - Acute renal failure- Anemia Hypokalemia HypoAlbuminemia Plan no labs as patient refuses Urine studies fluid chalenge Cortés Monitor renal parameters ? Hospice?? Subjective ROS Limited/Unobtainable: No Constitutional: Reports: malaise Objective Objective Last 24 Hour Vital Signs Date Time Temp Pulse Resp B/P (MAP) Pulse Ox O2 Delivery O2 Flow Rate FiO2 05/04/18 08:00 96.8 103 20 91/58 (69) 91 05/04/18 04:00 98.7 105 21 107/48 (67) 98 05/04/18 03:29 Nasal Cannula 3.0 32 05/04/18 03:28 Nasal Cannula 3.0 32 05/04/18 00:00 20 97 05/03/18 23:23 Nasal Cannula 2.0 28 05/03/18 23:21 Nasal Cannula 3.0 32 05/03/18 21:00 Nasal Cannula 3.0 Nasal Cannula 3.0 Nasal Cannula 3.0 Nasal Cannula 3.0 05/03/18 20:00 99.0 109 20 100/55 (70) 97 05/03/18 19:57 108 20 100 Nasal Cannula 2.0 28 05/03/18 19:48 116 18 95 Nasal Cannula 3.0 32 05/03/18 19:48 Nasal Cannula 2.0 28 05/03/18 19:48 95 Nasal Cannula 2.0 28 05/03/18 17:14 97.9 120 25 91/58 (69) 89 05/03/18 16:00 97.9 120 25 91/58 (69) 89 05/03/18 14:58 78 20 98 Nasal Cannula 2.0 28 05/03/18 14:46 82 18 95 Nasal Cannula 3.0 32 05/03/18 12:00 98.2 120 24 107/50 (69) 96 05/03/18 11:34 88 20 98 Nasal Cannula 2.0 28 05/03/18 11:22 85 18 97 Nasal Cannula 3.0 32 Intake and Output 05/03/18 05/04/18 19:00 07:00 Intake Total 480 ml 437.5 ml Output Total 200 ml 500 ml Balance 280 ml -62.5 ml Intake Oral 480 ml IV Total 437.5 ml Output Urine Total 200 ml 500 ml Laboratory Tests 05/03/18 14:25: Vancomycin Level Trough 19.3H Height (Feet): 5 Height (Inches): 7.00 Weight (Pounds): 156 General Appearance: no apparent distress Cardiovascular: tachycardia Respiratory/Chest: decreased breath sounds Objective no change Cheo Balderrama MD May 04, 2018 10:20
[2018-05-04 12:00] VITALS: BP 96/52
--- NOTE | 2018-05-04 14:00 | General Progress Note ---
Assessment/Plan Assessment/Plan # Anemia of iron deficiency is likely related to gi bleed --> anemia panel has been reviewed --> transfuse if hgb <7 --> iv iron has been started --> egd was completed and shows gastritis, distal esophagitis is on ppi --> Blood tx: 04/29, hgb trend 9.5-->7.9-->8.2 # Masslike opacity in the left upper lobe and nodular opacity in the medial left lower lobe. Findings may be related to pneumonia although underlying scarring/fibrotic change or neoplasm/malignancy cannot be excluded. Recommend clinical correlation and short-term interval follow-up imaging after appropriate treatment to assess for resolution. Evidence of prior granulomatous exposure with scattered calcified granulomas and calcified hilar or mediastinal lymph nodes. Trace pleural effusions versus pleural thickening. --> would repeat ct chest in 3 months --> if growing, enlarged, consider a ct guided bx # Leukocytosis likely reactive process from anemia --> ID is following, appreciate rcs. --> Monitor and trend wbc for improvement --> WBC remains elevated --> Remains on abx. # GERD, continue on ppi # DM2, # HTN, # COPD # Emesis # Tachycardia # Chest pain, atypical angina Greatly appreciate consultation! Subjective Constitutional: Denies: no symptoms, chills, diaphoresis, fever, malaise, weakness, other HEENT: Denies: no symptoms, eye pain, blurred vision, tearing, double vision, ear pain, ear discharge, nose pain, nose congestion, throat pain, throat swelling, mouth pain, mouth swelling, other Cardiovascular: Denies: no symptoms, chest pain, edema, irregular heart rate, lightheadedness, palpitations, syncope, other Respiratory: Denies: no symptoms, cough, orthopnea, shortness of breath, SOB with excertion, SOB at rest, sputum, stridor, wheezing, other Gastrointestinal/Abdominal: Denies: no symptoms, abdomen distended, abdominal pain, black stools, tarry stools, blood in stool, constipated, diarrhea, difficulty swallowing, nausea, poor appetite, poor fluid intake, rectal bleeding , vomiting, other Genitourinary: Denies: no symptoms, burning, discharge, frequency, flank pain, hematuria, incontinence, pain, urgency, other Neurologic/Psychiatric: Denies: no symptoms, anxiety, depressed, emotional problems, headache, numbness, paresthesia, pre-existing deficit, seizure, tingling, tremors, weakness, other Allergies: Coded Allergies: RISPERIDONE (Verified Allergy, Intermediate, 04/27/16) Subjective 04/29: tolerating iv iron very well, h/h pending from today, will re-order cbc 04/30: Pt awake and alert. On NC. S/P blood tx, Hgb improved to 9.5. WBC remains elevated, afebrile, on abx. 05/02: no events breathing better 05/03: Pt awake and alert. Pt refusing care. 05/04: 3L nc, labs have been ordered, got rt, refusing certain labs and care Objective Last 24 Hour Vital Signs Date Time Temp Pulse Resp B/P (MAP) Pulse Ox O2 Delivery O2 Flow Rate FiO2 05/04/18 12:00 96.5 96 20 96/52 (67) 100 05/04/18 10:27 79 18 99 Nasal Cannula 3.0 28 05/04/18 10:17 99 20 95 Nasal Cannula 3.0 32 05/04/18 10:16 76 18 95 Nasal Cannula 2.0 28 05/04/18 10:14 77 18 95 Nasal Cannula 3.0 32 05/04/18 09:00 Nasal Cannula 3.0 05/04/18 08:00 96.8 103 20 91/58 (69) 91 05/04/18 07:38 Nasal Cannula 05/04/18 07:36 Nasal Cannula 05/04/18 07:34 95 Nasal Cannula 2.0 05/04/18 07:33 Nasal Cannula 2.0 28 05/04/18 04:00 98.7 105 21 107/48 (67) 98 05/04/18 03:29 Nasal Cannula 3.0 32 05/04/18 03:28 Nasal Cannula 3.0 32 05/04/18 00:00 20 97 05/03/18 23:23 Nasal Cannula 2.0 28 05/03/18 23:21 Nasal Cannula 3.0 32 05/03/18 21:00 Nasal Cannula 3.0 Nasal Cannula 3.0 Nasal Cannula 3.0 Nasal Cannula 3.0 05/03/18 20:00 99.0 109 20 100/55 (70) 97 05/03/18 19:57 108 20 100 Nasal Cannula 2.0 28 05/03/18 19:48 116 18 95 Nasal Cannula 3.0 32 05/03/18 19:48 Nasal Cannula 2.0 28 05/03/18 19:48 95 Nasal Cannula 2.0 28 05/03/18 17:14 97.9 120 25 91/58 (69) 89 05/03/18 16:00 97.9 120 25 91/58 (69) 89 05/03/18 14:58 78 20 98 Nasal Cannula 2.0 28 05/03/18 14:46 82 18 95 Nasal Cannula 3.0 32 Intake and Output 05/03/18 05/04/18 19:00 07:00 Intake Total 480 ml 437.5 ml Output Total 200 ml 500 ml Balance 280 ml -62.5 ml Intake Oral 480 ml IV Total 437.5 ml Output Urine Total 200 ml 500 ml Laboratory Tests 05/03/18 14:25: Vancomycin Level Trough 19.3H Height (Feet): 5 Height (Inches): 7.00 Weight (Pounds): 156 General Appearance: confused EENT: normal ENT inspection Neck: normal inspection Cardiovascular: regular rhythm Respiratory/Chest: normal breath sounds Abdomen: no mass Extremities: non-tender Neurologic: no motor/sensory deficits Skin: warm/dry Nick Bishop MD May 04, 2018 14:00
--- NOTE | 2018-05-04 14:11 | Pulmonology Progress Note ---
Assessment/Plan Assessment/Plan Pulmonary Progress Note REASON FOR CONSULTATION: Chronic obstructive pulmonary disease and lung mass. HISTORY OF PRESENT ILLNESS: The patient is an 83-year-old male, former smoker, recently admitted with pneumonia, now readmitted with coffee-grounds emesis status post EGD consistent with gastritis. The patient had increased work of breathing and shortness of breath yesterday as well as hypotension, which responded somewhat to intravenous fluids. A CT of the chest was done given persistent opacities on chest x-ray, which showed a left upper lobe masslike opacity with left lower lobe nodular opacities. For this reason, pulmonary consultation was called. The patient is a poor historian, but does note cough and shortness of breath. No fevers or chills. No chest pain or other complaints. PAST MEDICAL HISTORY: 1. COPD. 2. GERD. 3. Diabetes. 4. Hypertension. 5. Anemia. 6. BPH. 7. Peripheral vascular disease. 8. Cachexia. 9. SN[facility] resident. ALLERGIES: Risperidone. MEDICATIONS: Prior to admission medications reviewed. Current medications reviewed. SOCIAL HISTORY: Known tobacco use. Unknown drug or alcohol. FAMILY HISTORY: Noncontributory. REVIEW OF SYSTEMS: Negative. PHYSICAL EXAMINATION: VITAL SIGNS NOTED GENERAL: Frail elderly cachectic male, mild distress HEENT: Normocephalic and atraumatic. Oropharynx is clear with moist mucous membranes. NECK: Supple without lymphadenopathy or jugular venous distention. CHEST: Distant. Scattered coarse. HEART: Regular rate and rhythm. ABDOMEN: Soft, nontender, nondistended. EXTREMITIES: No cyanosis, clubbing or edema. ANCILLARY DATA: White count 17, hemoglobin 7.9, and platelet count 224. ABG 7.37/38/68/22. Sodium 137, potassium 2.9, chloride 102, bicarbonate 24, BUN 14, creatinine 1.8, glucose 130. Lactic acid 1. Uric acid 4.1, calcium 8.8, phosphorus 3.3, magnesium 2.0. Total bilirubin 0.6, AST 17, ALT 12, and alkaline phosphatase 89. Troponin negative. CRP 28. ProBNP 02591. Total protein 6.2. Albumin 2.2. HIV negative. Coxy and crypto are pending. FOBT was positive last. There is no echocardiogram on file. CT of the chest from April 30, 2018 severe emphysematous changes, masslike left upper lobe opacity and nodular left lower lobe opacity, interstitial atelectasis at the bases versus scarring, multiple calcified mediastinal and hilar nodes, multiple spleen calcifications, evidence of prior granulomatous disease. Microbiology reviewed. CT Abdomen: IMPRESSION: 1. New nonobstructed small bowel loop extension into right indirect internal hernia, no findings to suggest ischemia or acute abnormality at this time. 2. Findings suggesting bibasilar aspiration, correlate clinically. 3. Bibasilar emphysema could represent alpha-1 antitrypsin deficiency, correlate clinically. 4. Distal esophageal small amount of retained enteric contrast, this could place the patient at risk for aspiration. 5. Unchanged nodular bilateral adrenal thickening, with hazy attenuation, suggesting possible adrenal mild hemorrhage which is of uncertain clinical significance. Correlate with older studies if available to evaluate for stability over time. Consider CT or MRI adrenal glands to further characterize. 6. High-density material along the skin surface in the groin of uncertain significance. Correlate clinically. ASSESSMENT: The patient is an 83-year-old male, known smoker with a history of COPD, schizophrenia, GERD, diabetes, hypertension, anemia, BPH, peripheral vascular disease admitted with coffee-grounds emesis secondary to gastritis now status post endoscopy and treated for pneumonia recently, but CT of the chest showing left upper lobe masslike opacity concerning for possible neoplastic process. CT of the abdomen and pelvis has also been done per report, but I do not see the results at this time. Ultimately, the patient if within his goals of care need a biopsy of his lung mass to rule out neoplasm. I defer to Dr. Bishop and the primary team given the patient's DNR and his goals of care not entirely clear. Optimize his COPD management, tumor markers pending PROBLEM LIST: 1. Recent pneumonia, status post treatment. 2. Left upper lobe masslike opacity. 3. Left lower lobe nodular opacity. 4. Calcified mediastinal and hilar nodes. 5. COPD without evidence of exacerbation. 6. Coffee-ground emesis, GI bleed status post EGD consistent with gastritis, pathology pending. 7. Smoker. 8. Multiple medical problems, COPD, GERD, diabetes, hypertension, anemia, BPH, peripheral vascular disease, cachexia, and schizophrenia. TREATMENT PLAN: 1. We will send off tumor markers. 2. Optimize pulmonary hygiene/mobilize as tolerated. 3. [id number]-tlfig and p.r.n. bronchodilators. 4. Defer decision on biopsy of left upper lobe mass to Dr. Bishop, and primary medical coding manager. 5. The patient should have a full pulmonary workup as an outpatient including PFTs if within goals of care. 6. Antibiotics per ID. 7. Monitor volumes and renal function, maintenance IV fluids. 8. Aspiration precautions. 9. DVT prophylaxis, heparin subcutaneous. 10. We will get swallow evaluation. 11. DNAR. Subjective ROS Limited/Unobtainable: No Allergies: Coded Allergies: RISPERIDONE (Verified Allergy, Intermediate, 04/27/16) Objective Last 24 Hour Vital Signs Date Time Temp Pulse Resp B/P (MAP) Pulse Ox O2 Delivery O2 Flow Rate FiO2 05/04/18 12:00 96.5 96 20 96/52 (67) 100 05/04/18 10:27 79 18 99 Nasal Cannula 3.0 28 05/04/18 10:17 99 20 95 Nasal Cannula 3.0 32 05/04/18 10:16 76 18 95 Nasal Cannula 2.0 28 05/04/18 10:14 77 18 95 Nasal Cannula 3.0 32 05/04/18 09:00 Nasal Cannula 3.0 05/04/18 08:00 96.8 103 20 91/58 (69) 91 05/04/18 07:38 Nasal Cannula 05/04/18 07:36 Nasal Cannula 05/04/18 07:34 95 Nasal Cannula 2.0 28 05/04/18 07:33 Nasal Cannula 2.0 28 05/04/18 04:00 98.7 105 21 107/48 (67) 98 05/04/18 03:29 Nasal Cannula 3.0 32 05/04/18 03:28 Nasal Cannula 3.0 32 05/04/18 00:00 20 97 05/03/18 23:23 Nasal Cannula 2.0 28 05/03/18 23:21 Nasal Cannula 3.0 32 05/03/18 21:00 Nasal Cannula 3.0 Nasal Cannula 3.0 Nasal Cannula 3.0 Nasal Cannula 3.0 05/03/18 20:00 99.0 109 20 100/55 (70) 97 05/03/18 19:57 108 20 100 Nasal Cannula 2.0 28 05/03/18 19:48 116 18 95 Nasal Cannula 3.0 32 05/03/18 19:48 Nasal Cannula 2.0 28 05/03/18 19:48 95 Nasal Cannula 2.0 28 05/03/18 17:14 97.9 120 25 91/58 (69) 89 05/03/18 16:00 97.9 120 25 91/58 (69) 89 05/03/18 14:58 78 20 98 Nasal Cannula 2.0 28 05/03/18 14:46 82 18 95 Nasal Cannula 3.0 32 Intake and Output 05/03/18 05/04/18 19:00 07:00 Intake Total 480 ml 437.5 ml Output Total 200 ml 500 ml Balance 280 ml -62.5 ml Intake Oral 480 ml IV Total 437.5 ml Output Urine Total 200 ml 500 ml Microbiology Date/Time Source Procedure Growth Status 05/01/18 19:13 Indwelling Cath Urine Culture - Final NO GROWTH AFTER 48 HOURS Complete Laboratory Tests 05/03/18 14:25: Vancomycin Level Trough 19.3H Current Medications Medications (Trade) Dose Ordered Sig/Amish Route PRN Reason Start Time Stop Time Status Last Admin Dose Admin Acetylcysteine (Mucomyst) 100 mg Q4HRT HHN 05/03/18 23:00 06/02/18 22:59 05/04/18 10:18 Albuterol/ Ipratropium (Albuterol/ Ipratropium) 3 ml Q4H PRN HHN Shortness of Breath 04/30/18 21:00 05/05/18 20:59 Albuterol/ Ipratropium (Albuterol/ Ipratropium) 3 ml Q4HRT HHN 05/03/18 11:00 05/08/18 10:59 05/04/18 10:17 Aspirin (ASA) 81 mg DAILY ORAL 04/26/18 09:00 05/26/18 08:59 05/04/18 09:00 Atorvastatin Calcium (Lipitor) 10 mg BEDTIME ORAL 05/01/18 21:00 05/26/18 20:59 05/03/18 20:26 Bisacodyl (Dulcolax) 10 mg DAILYPRN PRN RECTAL Constipation 04/26/18 02:30 05/26/18 02:29 04/27/18 21:06 Diatrizoate Meglum/ Diatrizoate Sod (Gastrografin) 30 ml NOW PRN ORAL Radiology Procedure 05/03/18 12:30 05/05/18 12:29 Docusate Sodium (Colace) 100 mg TWICE A DAY ORAL 04/26/18 09:00 05/26/18 08:59 05/04/18 09:00 Heparin Sodium (Porcine) (Heparin 5000 units/ml) 5,000 units EVERY 12 HOURS SUBQ 04/26/18 09:00 05/26/18 08:59 05/02/18 21:55 Iopamidol (Isovue-300 100ml) 100 ml NOW PRN INJ Radiology Procedure 05/03/18 20:00 06/02/18 19:59 Lactulose (Cephulac) 20 gm THREE TIMES A DAY ORAL 04/27/18 09:00 05/26/18 08:59 05/04/18 09:00 Linezolid 300 ml @ 300 mls/hr Q12HR IVPB 05/03/18 21:00 05/10/18 20:59 05/04/18 09:11 Lorazepam (Ativan) 1 mg Q6H PRN ORAL For Anxiety 04/30/18 08:15 05/07/18 08:14 Magnesium Hydroxide (Mom) 30 ml HSPRN PRN ORAL Constipation 04/26/18 02:30 05/26/18 02:29 Memantine (Namenda) 5 mg BID ORAL 04/26/18 18:00 05/26/18 17:59 05/04/18 09:00 Olanzapine (ZyPREXA Zydis) 5 mg BID ORAL 04/26/18 18:00 05/26/18 17:59 05/04/18 09:00 Ondansetron HCl (Zofran) 4 mg Q4H PRN IVP Nausea & Vomiting 04/26/18 02:15 05/26/18 02:14 04/29/18 18:34 Pantoprazole (Protonix) 40 mg BID ORAL 05/01/18 18:00 05/26/18 06:29 05/04/18 09:00 Piperacillin Sod/ Tazobactam Sod 3.375 gm/Dextrose 110 ml @ 27.5 mls/hr EVERY 8 HOURS IVPB 04/26/18 11:30 05/09/18 11:29 05/04/18 05:05 Polyethylene Glycol (Miralax) 17 gm BEDTIME ORAL 04/26/18 21:00 05/26/18 20:59 05/03/18 20:24 Sennosides (Senokot) 17.2 mg BEDTIME ORAL 04/26/18 21:00 05/26/18 20:59 05/03/18 20:26 Sodium Phosphate (Fleet's Sodium Phosl Enema) 133 ml QOD PRN RECTAL Constipation 04/26/18 02:30 05/26/18 02:29 04/28/18 02:21 Tiotropium [place] (Spiriva Inhaler) 1 puff DAILY INH 04/26/18 09:00 05/26/18 08:59 05/04/18 10:14 Suraj Swift MD May 04, 2018 14:11
--- NOTE | 2018-05-04 15:19 | General Progress Note ---
Assessment/Plan Problem List: (1) Hypertension ICD Codes: I10 - Essential (primary) hypertension SNOMED: 51440062 (2) Severe protein-calorie malnutrition ICD Codes: E43 - Unspecified severe protein-calorie malnutrition SNOMED: 714641167 (3) CKD (chronic kidney disease) ICD Codes: N18.9 - Chronic kidney disease, unspecified SNOMED: 598485508 (4) Acute renal failure ICD Codes: N17.9 - Acute kidney failure, unspecified SNOMED: 41350498 (5) Hypokalemia ICD Codes: E87.6 - Hypokalemia SNOMED: 92485546 (6) Abdominal pain ICD Codes: R10.9 - Unspecified abdominal pain SNOMED: 33284111, 608392855 Qualifiers: Qualified Codes: R10.13 - Epigastric pain Status: progressing Assessment/Plan cri afebrile reviewed chart and labs no acue events no sob no n/v/d Subjective ROS Limited/Unobtainable: Yes Allergies: Coded Allergies: RISPERIDONE (Verified Allergy, Intermediate, 04/27/16) Objective Last 24 Hour Vital Signs Date Time Temp Pulse Resp B/P (MAP) Pulse Ox O2 Delivery O2 Flow Rate FiO2 05/04/18 14:49 77 20 99 Nasal Cannula 3.0 28 05/04/18 14:37 22 18 92 Nasal Cannula 3.0 32 05/04/18 12:00 96.5 96 20 96/52 (67) 100 05/04/18 10:27 79 18 99 Nasal Cannula 3.0 28 05/04/18 10:17 99 20 95 Nasal Cannula 3.0 32 05/04/18 10:16 76 18 95 Nasal Cannula 2.0 28 05/04/18 10:14 77 18 95 Nasal Cannula 3.0 32 05/04/18 09:00 Nasal Cannula 3.0 05/04/18 08:00 96.8 103 20 91/58 (69) 91 05/04/18 07:38 Nasal Cannula 05/04/18 07:36 Nasal Cannula 05/04/18 07:34 95 Nasal Cannula 2.0 28 05/04/18 07:33 Nasal Cannula 2.0 28 05/04/18 04:00 98.7 105 21 107/48 (67) 98 05/04/18 03:29 Nasal Cannula 3.0 32 12/30/18 03:28 Nasal Cannula 3.0 32 05/04/18 00:00 20 97 05/03/18 23:23 Nasal Cannula 2.0 28 05/03/18 23:21 Nasal Cannula 3.0 32 05/03/18 21:00 Nasal Cannula 3.0 Nasal Cannula 3.0 Nasal Cannula 3.0 Nasal Cannula 3.0 05/03/18 20:00 99.0 109 20 100/55 (70) 97 05/03/18 19:57 108 20 100 Nasal Cannula 2.0 05/03/18 19:48 116 18 95 Nasal Cannula 3.0 32 05/03/18 19:48 Nasal Cannula 2.0 28 05/03/18 19:48 95 Nasal Cannula 2.0 28 05/03/18 17:14 97.9 120 25 91/58 (69) 89 05/03/18 16:00 97.9 120 25 91/58 (69) 89 Intake and Output 05/03/18 05/04/18 19:00 07:00 Intake Total 480 ml 437.5 ml Output Total 200 ml 500 ml Balance 280 ml -62.5 ml Intake Oral 480 ml IV Total 437.5 ml Output Urine Total 200 ml 500 ml Height (Feet): 5 Height (Inches): 7.00 Weight (Pounds): 156 Cardiovascular: normal rate Respiratory/Chest: lungs clear Abdomen: soft Jay Wadsworth MD May 04, 2018 15:19
[2018-05-04 16:00] VITALS: BP 93/51
--- NOTE | 2018-05-04 17:53 | General Surgery Progress Note ---
General Surgery-Progress Note Subjective Symptoms: improved Additional Comments states he feels better. no n/v/f/c. tolerating diet. no pain Objective Last 24 Hour Vital Signs Date Time Temp Pulse Resp B/P (MAP) Pulse Ox O2 Delivery O2 Flow Rate FiO2 05/04/18 14:49 77 20 99 Nasal Cannula 3.0 28 05/04/18 14:37 22 18 92 Nasal Cannula 3.0 32 05/04/18 12:00 96.5 96 20 96/52 (67) 100 05/04/18 10:27 79 18 99 Nasal Cannula 3.0 28 05/04/18 10:17 99 20 95 Nasal Cannula 3.0 32 05/04/18 10:16 76 18 95 Nasal Cannula 2.0 28 05/04/18 10:14 77 18 95 Nasal Cannula 3.0 32 05/04/18 09:00 Nasal Cannula 3.0 05/04/18 08:00 96.8 103 20 91/58 (69) 91 05/04/18 07:38 Nasal Cannula 05/04/18 07:36 Nasal Cannula 05/04/18 07:34 95 Nasal Cannula 2.0 28 05/04/18 07:33 Nasal Cannula 2.0 28 05/04/18 04:00 98.7 105 21 107/48 (67) 98 05/04/18 03:29 Nasal Cannula 3.0 32 05/04/18 03:28 Nasal Cannula 3.0 32 05/04/18 00:00 20 97 05/03/18 23:23 Nasal Cannula 2.0 28 05/03/18 23:21 Nasal Cannula 3.0 32 05/03/18 21:00 Nasal Cannula 3.0 Nasal Cannula 3.0 Nasal Cannula 3.0 Nasal Cannula 3.0 05/03/18 20:00 99.0 109 20 100/55 (70) 97 05/03/18 19:57 108 20 100 Nasal Cannula 2.0 28 05/03/18 19:48 116 18 95 Nasal Cannula 3.0 32 05/03/18 19:48 Nasal Cannula 2.0 28 05/03/18 19:48 95 Nasal Cannula 2.0 28 I&O Intake and Output 05/03/18 05/04/18 19:00 07:00 Intake Total 480 ml 437.5 ml Output Total 200 ml 500 ml Balance 280 ml -62.5 ml Intake Oral 480 ml IV Total 437.5 ml Output Urine Total 200 ml 500 ml Drains: none Cardiovascular: RSR Respiratory: clear Abdomen: soft, flat, non-tender, present bowel sounds Extremities: no cyanosis Plan Problems: (1) Abdominal pain Assessment & Plan: abdominal pain. nausea. coffee ground emesis. leukocytosis. labs noted exam benign. abd soft, nt/nd, bs+ CT without obstruction as per report fecal impaction s/p EGD given KUB will order CT with oral contrast to be sure no obstruction --> New nonobstructed small bowel loop extension into right indirect internal hernia , no findings to suggest ischemia or acute abnormality at this time. Findings suggesting bibasilar aspiration, correlate clinically. Bibasilar emphysema could represent alpha-1 antitrypsin deficiency, correlate clinically. Distal esophageal small amount of retained enteric contrast, this could place the patient at risk for aspiration. Unchanged nodular bilateral adrenal thickening, with hazy attenuation, suggesting possible adrenal mild hemorrhage which is of uncertain clinical significance. Correlate with older studies if available to evaluate for stability over time. Consider CT or MRI adrenal glands to further characterize. High-density material along the skin surface in the groin of uncertain significance. Correlate clinically. -hernia reducible and no obstruction boted -no acute surgical intervention planned -okay for diet -bowel regimen -d/c planning thank you will follow with recbong. Ilia Rossi May 04, 2018 17:53
--- NOTE | 2018-05-04 19:05 | General Progress Note ---
Assessment/Plan Assessment/Plan Assessment (1) Intractable vomiting ICD Codes: R11.10 - Vomiting, unspecified SNOMED: 247661268, 958340112 Qualifiers: Qualified Codes: R11.2 - Nausea with vomiting, unspecified (2) GERD (gastroesophageal reflux disease) ICD Codes: K21.9 - Gastro-esophageal reflux disease without esophagitis SNOMED: 467576120 (3) Fecal impaction ICD Codes: K56.41 - Fecal impaction SNOMED: 61164182 (4) Anemia ICD Codes: D64.9 - Anemia, unspecified SNOMED: 010089350 (5) Abdominal pain ICD Codes: R10.9 - Unspecified abdominal pain SNOMED: 88075301, 362403847 Qualifiers: Qualified Codes: R10.13 - Epigastric pain (6) Constipation ICD Codes: K59.00 - Constipation, unspecified SNOMED: 10340758 (7) Severe protein-calorie malnutrition ICD Codes: E43 - Unspecified severe protein-calorie malnutrition SNOMED: 218216228 Status: stable, unchanged Assessment/Plan SUMMARY OF FINDINGS: 1. Large hiatal hernia. 2. Minimum distal esophagitis. 3. Gastritis, status post biopsy. RECOMMENDATIONS: 1. Follow up biopsy results. 2. Monitor hemoglobin and hematocrit. Transfuse as needed. 3. Continue on PPI daily given esophagitis. 4. Start diet and advance as tolerated. 5. The patient may benefit from colonoscopy if needed. We will follow closely and make that recommendation later. DC planning Subjective Allergies: Coded Allergies: RISPERIDONE (Verified Allergy, Intermediate, 04/27/16) Subjective above noted feels "OK" no abdominal pain Objective Last 24 Hour Vital Signs Date Time Temp Pulse Resp B/P (MAP) Pulse Ox O2 Delivery O2 Flow Rate FiO2 05/04/18 16:00 97.5 96 20 93/51 (65) 99 05/04/18 14:49 77 20 99 Nasal Cannula 3.0 28 05/04/18 14:37 22 18 92 Nasal Cannula 3.0 32 05/04/18 12:00 96.5 96 20 96/52 (67) 100 05/04/18 10:27 79 18 99 Nasal Cannula 3.0 28 05/04/18 10:17 99 20 95 Nasal Cannula 3.0 32 05/04/18 10:16 76 18 95 Nasal Cannula 2.0 28 05/04/18 10:14 77 18 95 Nasal Cannula 3.0 32 05/04/18 09:00 Nasal Cannula 3.0 05/04/18 08:00 96.8 103 20 91/58 (69) 91 05/04/18 07:38 Nasal Cannula 05/04/18 07:36 Nasal Cannula 05/04/18 07:34 95 Nasal Cannula 2.0 28 05/04/18 07:33 Nasal Cannula 2.0 28 05/04/18 04:00 98.7 105 21 107/48 (67) 98 05/04/18 03:29 Nasal Cannula 3.0 32 05/04/18 03:28 Nasal Cannula 3.0 32 05/04/18 00:00 20 97 05/03/18 23:23 Nasal Cannula 2.0 28 05/03/18 23:21 Nasal Cannula 3.0 32 05/03/18 21:00 Nasal Cannula 3.0 Nasal Cannula 3.0 Nasal Cannula 3.0 Nasal Cannula 3.0 05/03/18 20:00 99.0 109 20 100/55 (70) 97 05/03/18 19:57 108 20 100 Nasal Cannula 2.0 28 05/03/18 19:48 116 18 95 Nasal Cannula 3.0 32 05/03/18 19:48 Nasal Cannula 2.0 28 05/03/18 19:48 95 Nasal Cannula 2.0 28 Intake and Output 05/03/18 05/04/18 19:00 07:00 Intake Total 480 ml 437.5 ml Output Total 200 ml 500 ml Balance 280 ml -62.5 ml Intake Oral 480 ml IV Total 437.5 ml Output Urine Total 200 ml 500 ml Height (Feet): 5 Height (Inches): 7.00 Weight (Pounds): 156 Objective WDWN NCAT supple CTA RR abd soft no edema Jeff Tipton MD May 04, 2018 19:05
[2018-05-04 20:00] VITALS: BP 98/58
[2018-05-04] MEDS: Sennosides 8.6mg tab ORAL SCH (21:00)
[2018-05-04] MEDS: Miralax 17gm pkt ORAL SCH (21:00)
[2018-05-05] MEDS: Piperacillin/Tazobactam 3.375 GM in D5W 110 ML IVPB SCH ×3 (05:38→21:37)
[2018-05-05] MEDS: Albuterol/Ipratropium 3ml neb HHN SCH ×6 (07:25→23:53)
--- NOTE | 2018-05-05 07:30 | Progress Note ---
DATE: 05/01/2018 NOTE: UNCLEAR AUDIO SUBJECTIVE: This is an 83-year-old male patient with vomiting and abdominal pain. This patient does have some confusion and disorganized thought process, mood lability worsened by stress of his medical illness that is why his attending has requested daily psychiatric consultation for this patient. He came because of abdominal pain but he has a lot of psychomotor agitation. 01:13 "I'm pissed off." The patient states 01:20 mood disorders because he is not following direction, but sometimes 01:27 as he continues to describe abdominal pain and 01:36 . MENTAL STATUS EXAMINATION: An 83-year-old male. Appearance is disheveled. Attitude, irritable and agitated. Affect guarded and restricted. Intellect poor. Mood, depressed and anxious. Motor activity, psychomotor agitation. Attention is poor. Orientation x2. Speech is low volume and slurred. Thought process, disorganized and illogical. Insight and judgment is poor. DIAGNOSIS: Major depressive disorder, severe, recurrent with psychotic features, rule out dementia with psychosis. PLAN: Plan is to treat him with Zyprexa 5 twice a day to reduce agitation and Namenda 5 mg twice a day to prevent any further decline in his cognition. A 20 minutes of cognitive behavioral therapy to help identify his automatic negative thoughts to help him convert those negative thoughts to more positive thinking to reduce depression, anxiety, and suicidality. Chart reviewed. Discussed with staff. Seen and assessed at bedside. Darrick Robert M.D. DR: KIM JOB#: [id number] CC:
[2018-05-05 08:00] VITALS: BP 108/62
--- NOTE | 2018-05-05 08:09 | Infectious Diseases Prog Note ---
Assessment/Plan Assessment/Plan Sepsis, improving- likely from intraabdominal source and PNA- Lung opacities- r/o inefctions vs malignancy -sp cx PSA and yeast -CT Chest: Severe emphysema with masslike opacity in the left upper lobe and nodular opacity in the medial left lower lobe. Findings may be related to pneumonia although underlying scarring/fibrotic change or neoplasm/malignancy cannot be excluded. Recommend clinical correlation and short-term interval follow-up imaging after appropriate treatment to assess for resolution. Evidence of prior granulomatous exposure with scattered calcified granulomas and calcified hilar or mediastinal lymph nodes. Trace pleural effusions versus pleural thickening. u/a neg Bcx NTD CXR: Ill-defined airspace opacity at the left apex and right perihilar to mid area not significantly changed in appearance may represent multifocal pneumonia. Ill-defined 2 cm nodular density at the medial left lower lung concerning for lesion partially imaged on CT of the abdomen and pelvis. Difficult to exclude a 1.4 cm ill-defined lesion at the right apex superimposed over the posterior right fourth rib. Sequela of previous granulomatous disease and hyperinflation, emphysematous change of the left mid to lower lung again noted -neg HIV ab sc Coffee ground emesis Abdominal pain- ileus vs SBP -KUB: 1Diffuse gaseous distention of large and small bowel loops, nonspecific. This may suggest ileus or partial obstruction. Fecal retention in the right colon, which may suggest constipation. -CT ab/p p Afebrile Leukocytosis, improving Recent PNA, s/p Rx -04/17 sp cx MRSA, PsA (franklin S) -influenz sc neg - HIV : neg GERD DM2 HTN COPD SNF resident anemia BPH PVD cachectic DNR Plan: -Continue empiric Zosyn # -05/05/18 SP IV Vancomycin # 6 -04/22 SP PO Levaquin and Linezolid #7 -04/16 SP Augmentin #1 -Monitor CBC/CMP, temperatures -GI, Sx fu -aspiration precautions Thank you for this consultation. Will continue to follow along with you. Subjective Allergies: Coded Allergies: RISPERIDONE (Verified Allergy, Intermediate, 04/27/16) Subjective Patient with improving leukocytosis Afebrile Satting well on 3L NC awake and talking Ate breakfast Objective Vital Signs Last 24 Hour Vital Signs Date Time Temp Pulse Resp B/P (MAP) Pulse Ox O2 Delivery O2 Flow Rate FiO2 05/05/18 07:38 92 18 98 Nasal Cannula 3.0 32 05/05/18 07:27 96 Nasal Cannula 3.0 32 05/05/18 07:27 Nasal Cannula 3.0 32 05/05/18 07:27 97 16 96 Nasal Cannula 3.0 32 05/05/18 03:26 Nasal Cannula 3.0 32 05/05/18 03:24 Nasal Cannula 3.0 32 05/05/18 00:11 85 20 98 Nasal Cannula 3.0 28 05/05/18 00:07 93 Nasal Cannula 3.0 32 05/05/18 00:07 Nasal Cannula 3.0 32 05/05/18 00:00 95 18 93 Nasal Cannula 3.0 32 05/04/18 21:00 Nasal Cannula 3.0 Nasal Cannula 3.0 Nasal Cannula 3.0 Nasal Cannula 3.0 05/04/18 20:00 97.5 100 17 98/58 (71) 98 05/04/18 16:00 97.5 96 20 93/51 (65) 99 05/04/18 14:49 77 20 99 Nasal Cannula 3.0 28 05/04/18 14:37 22 18 92 Nasal Cannula 3.0 32 05/04/18 12:00 96.5 96 20 96/52 (67) 100 05/04/18 10:27 79 18 99 Nasal Cannula 3.0 28 05/04/18 10:17 99 20 95 Nasal Cannula 3.0 32 05/04/18 10:16 76 18 95 Nasal Cannula 2.0 28 05/04/18 10:14 77 18 95 Nasal Cannula 3.0 32 05/04/18 09:00 Nasal Cannula 3.0 Height (Feet): 5 Height (Inches): 7.00 Weight (Pounds): 156 Objective Gen: NAD Cardiovascular: RRR, s1, s2 Respiratory: Course B/L No W Abdomen: soft, flat, non-tender, present bowel sounds Extremities: no tenderness, no cyanosis Current Medications Medications (Trade) Dose Ordered Sig/Amish Route PRN Reason Start Time Stop Time Status Last Admin Dose Admin Acetylcysteine (Mucomyst) 100 mg Q4HRT HHN 05/03/18 23:00 06/02/18 22:59 05/05/18 07:25 Albuterol/ Ipratropium (Albuterol/ Ipratropium) 3 ml Q4H PRN HHN Shortness of Breath 04/30/18 21:00 05/05/18 20:59 Albuterol/ Ipratropium (Albuterol/ Ipratropium) 3 ml Q4HRT HHN 05/03/18 11:00 05/08/18 10:59 05/05/18 07:25 Aspirin (ASA) 81 mg DAILY ORAL 04/26/18 09:00 05/26/18 08:59 05/04/18 09:00 Atorvastatin Calcium (Lipitor) 10 mg BEDTIME ORAL 05/01/18 21:00 05/26/18 20:59 05/03/18 20:26 Bisacodyl (Dulcolax) 10 mg DAILYPRN PRN RECTAL Constipation 04/26/18 02:30 05/26/18 02:29 04/27/18 21:06 Diatrizoate Meglum/ Diatrizoate Sod (Gastrografin) 30 ml NOW PRN ORAL Radiology Procedure 05/03/18 12:30 05/05/18 12:29 Docusate Sodium (Colace) 100 mg TWICE A DAY ORAL 04/26/18 09:00 05/26/18 08:59 05/04/18 17:40 Heparin Sodium (Porcine) (Heparin 5000 units/ml) 5,000 units EVERY 12 HOURS SUBQ 04/26/18 09:00 05/26/18 08:59 05/02/18 21:55 Iopamidol (Isovue-300 100ml) 100 ml NOW PRN INJ Radiology Procedure 05/03/18 20:00 06/02/18 19:59 Lactulose (Cephulac) 20 gm THREE TIMES A DAY ORAL 04/27/18 09:00 05/26/18 08:59 05/04/18 17:40 Linezolid 300 ml @ 300 mls/hr Q12HR IVPB 05/03/18 21:00 05/10/18 20:59 05/04/18 09:11 Lorazepam (Ativan) 1 mg Q6H PRN ORAL For Anxiety 04/30/18 08:15 05/07/18 08:14 Magnesium Hydroxide (Mom) 30 ml HSPRN PRN ORAL Constipation 04/26/18 02:30 05/26/18 02:29 Memantine (Namenda) 5 mg BID ORAL 04/26/18 18:00 05/26/18 17:59 05/04/18 17:39 Olanzapine (ZyPREXA Zydis) 5 mg BID ORAL 04/26/18 18:00 05/26/18 17:59 05/04/18 17:39 Ondansetron HCl (Zofran) 4 mg Q4H PRN IVP Nausea & Vomiting 04/26/18 02:15 05/26/18 02:14 04/29/18 18:34 Pantoprazole (Protonix) 40 mg BID ORAL 05/01/18 18:00 05/26/18 06:29 05/04/18 17:40 Piperacillin Sod/ Tazobactam Sod 3.375 gm/Dextrose 110 ml @ 27.5 mls/hr EVERY 8 HOURS IVPB 04/26/18 11:30 05/09/18 11:29 05/05/18 05:38 Polyethylene Glycol (Miralax) 17 gm BEDTIME ORAL 04/26/18 21:00 05/26/18 20:59 05/03/18 20:24 Sennosides (Senokot) 17.2 mg BEDTIME ORAL 04/26/18 21:00 05/26/18 20:59 05/03/18 20:26 Sodium Phosphate (Fleet's Sodium Phosl Enema) 133 ml QOD PRN RECTAL Constipation 04/26/18 02:30 05/26/18 02:29 04/28/18 02:21 Tiotropium [place] (Spiriva Inhaler) 1 puff DAILY INH 04/26/18 09:00 05/26/18 08:59 05/04/18 10:14 Suraj Elder MD May 05, 2018 08:09
[2018-05-05] MEDS: Docusate 100mg cap ORAL SCH ×2 (08:39→17:02)
[2018-05-05] MEDS: ZyPREXA Zydis 5mg tab ORAL SCH ×2 (08:39→17:05)
[2018-05-05] MEDS: Memantine 5 MG TAB ORAL SCH ×2 (08:39→17:05)
[2018-05-05] MEDS: Heparin 5000 units/ml inj SUBQ SCH ×3 (08:41→21:00)
[2018-05-05] MEDS: Aspirin Baby 81mg ORAL SCH (08:43)
[2018-05-05] MEDS: Lactulose 10gm/15ml UDC ORAL SCH ×3 (08:43→17:02)
--- NOTE | 2018-05-05 10:39 | Cardiac Electrophysiology PN ---
Assessment/Plan Assessment/Plan 1. HTN, BP 90-100 off any BP meds 2. COPD, PNA on abx and nasal cannula. FU DR Sánchez 3. Intractable vomiting Fu Dr Sy and Flo. CT abdomen 4. Chest pain, atypical 5. DM2 DW RN Subjective Subjective No CP.On iv abx. RN at bedside. Objective Last 24 Hour Vital Signs Date Time Temp Pulse Resp B/P (MAP) Pulse Ox O2 Delivery O2 Flow Rate FiO2 05/05/18 09:19 92 20 97 Nasal Cannula 3.0 32 05/05/18 09:19 92 20 96 Nasal Cannula 3.0 32 05/05/18 09:00 Nasal Cannula 3.0 Nasal Cannula 3.0 Nasal Cannula 3.0 Nasal Cannula 3.0 05/05/18 08:00 97.6 104 20 108/62 (77) 95 05/05/18 07:38 92 18 98 Nasal Cannula 3.0 32 05/05/18 07:27 96 Nasal Cannula 3.0 32 05/05/18 07:27 Nasal Cannula 3.0 32 05/05/18 07:27 97 16 96 Nasal Cannula 3.0 32 05/05/18 03:26 Nasal Cannula 3.0 32 05/05/18 03:24 Nasal Cannula 3.0 32 05/05/18 00:11 85 20 98 Nasal Cannula 3.0 28 05/05/18 00:07 93 Nasal Cannula 3.0 32 05/05/18 00:07 Nasal Cannula 3.0 32 05/05/18 00:00 95 18 93 Nasal Cannula 3.0 32 05/04/18 21:00 Nasal Cannula 3.0 Nasal Cannula 3.0 Nasal Cannula 3.0 Nasal Cannula 3.0 05/04/18 20:00 97.5 100 17 98/58 (71) 98 05/04/18 16:00 97.5 96 20 93/51 (65) 99 05/04/18 14:49 77 20 99 Nasal Cannula 3.0 28 05/04/18 14:37 22 18 92 Nasal Cannula 3.0 32 05/04/18 12:00 96.5 96 20 96/52 (67) 100 Intake and Output 05/04/18 05/05/18 18:59 06:59 Intake Total 600 ml Output Total 400 ml 300 ml Balance 200 ml -300 ml Intake Oral 600 ml Output Urine Total 400 ml 300 ml Objective HEENT: No JVD . Cardiovascular: normal rate, regular rhythm Respiratory/Chest: Coarse rhonchi Abdomen: soft, no organomegaly Extremities: no swelling Ralph Loomis MD May 05, 2018 10:39
--- NOTE | 2018-05-05 11:39 | General Progress Note ---
Assessment/Plan Problem List: (1) Hypertension ICD Codes: I10 - Essential (primary) hypertension SNOMED: 92243416 (2) Severe protein-calorie malnutrition ICD Codes: E43 - Unspecified severe protein-calorie malnutrition SNOMED: 841143309 (3) CKD (chronic kidney disease) ICD Codes: N18.9 - Chronic kidney disease, unspecified SNOMED: 819696768 (4) Acute renal failure ICD Codes: N17.9 - Acute kidney failure, unspecified SNOMED: 57316674 (5) Hypokalemia ICD Codes: E87.6 - Hypokalemia SNOMED: 60016627 (6) Abdominal pain ICD Codes: R10.9 - Unspecified abdominal pain SNOMED: 03184938, 215237360 Qualifiers: Qualified Codes: R10.13 - Epigastric pain Status: progressing Assessment/Plan cri abdomina pain improving lyte abnormality no acute events no sob no fever reviewed chart Subjective ROS Limited/Unobtainable: Yes Allergies: Coded Allergies: RISPERIDONE (Verified Allergy, Intermediate, 04/27/16) Objective Last 24 Hour Vital Signs Date Time Temp Pulse Resp B/P (MAP) Pulse Ox O2 Delivery O2 Flow Rate FiO2 05/05/18 11:15 94 17 98 Nasal Cannula 3.0 32 05/05/18 11:00 90 16 98 Nasal Cannula 3.0 32 05/05/18 09:19 92 20 97 Nasal Cannula 3.0 32 05/05/18 09:19 92 20 96 Nasal Cannula 3.0 32 05/05/18 09:00 Nasal Cannula 3.0 Nasal Cannula 3.0 Nasal Cannula 3.0 Nasal Cannula 3.0 05/05/18 08:00 97.6 104 20 108/62 (77) 95 05/05/18 07:38 92 18 98 Nasal Cannula 3.0 32 05/05/18 07:27 96 Nasal Cannula 3.0 32 05/05/18 07:27 Nasal Cannula 3.0 32 05/05/18 07:27 97 16 96 Nasal Cannula 3.0 32 05/05/18 03:26 Nasal Cannula 3.0 32 05/05/18 03:24 Nasal Cannula 3.0 32 05/05/18 00:11 85 20 98 Nasal Cannula 3.0 28 05/05/18 00:07 93 Nasal Cannula 3.0 32 05/05/18 00:07 Nasal Cannula 3.0 32 05/05/18 00:00 95 18 93 Nasal Cannula 3.0 32 05/04/18 21:00 Nasal Cannula 3.0 Nasal Cannula 3.0 Nasal Cannula 3.0 Nasal Cannula 3.0 05/04/18 20:00 97.5 100 17 98/58 (71) 98 05/04/18 16:00 97.5 96 20 93/51 (65) 99 05/04/18 14:49 77 20 99 Nasal Cannula 3.0 28 05/04/18 14:37 22 18 92 Nasal Cannula 3.0 32 05/04/18 12:00 96.5 96 20 96/52 (67) 100 Intake and Output 05/04/18 05/05/18 18:59 06:59 Intake Total 600 ml Output Total 400 ml 300 ml Balance 200 ml -300 ml Intake Oral 600 ml Output Urine Total 400 ml 300 ml Height (Feet): 5 Height (Inches): 7.00 Weight (Pounds): 156 Respiratory/Chest: lungs clear Abdomen: non tender, soft Jay Wadsworth MD May 05, 2018 11:39
--- NOTE | 2018-05-05 11:52 | Nephrology Progress Note ---
Assessment/Plan Problem List: (1) Acute renal failure (2) Anemia (3) Hypokalemia Assessment episode of Low BP leading to rise of Cr 1.3 to 1.9 - Acute renal failure- Anemia Hypokalemia HypoAlbuminemia Plan no labs as patient refuses continue current support ? Hospice? Urine studies fluid chalenge as needed Cortés Monitor renal parameters Subjective ROS Limited/Unobtainable: No Constitutional: Reports: malaise, weakness Objective Objective Last 24 Hour Vital Signs Date Time Temp Pulse Resp B/P (MAP) Pulse Ox O2 Delivery O2 Flow Rate FiO2 05/05/18 11:15 94 17 98 Nasal Cannula 3.0 32 05/05/18 11:00 90 16 98 Nasal Cannula 3.0 32 05/05/18 09:19 92 20 97 Nasal Cannula 3.0 32 05/05/18 09:19 92 20 96 Nasal Cannula 3.0 32 05/05/18 09:00 Nasal Cannula 3.0 Nasal Cannula 3.0 Nasal Cannula 3.0 Nasal Cannula 3.0 05/05/18 08:00 97.6 104 20 108/62 (77) 95 05/05/18 07:38 92 18 98 Nasal Cannula 3.0 32 05/05/18 07:27 96 Nasal Cannula 3.0 32 05/05/18 07:27 Nasal Cannula 3.0 32 05/05/18 07:27 97 16 96 Nasal Cannula 3.0 32 05/05/18 03:26 Nasal Cannula 3.0 32 05/05/18 03:24 Nasal Cannula 3.0 32 05/05/18 00:11 85 20 98 Nasal Cannula 3.0 28 05/05/18 00:07 93 Nasal Cannula 3.0 32 05/05/18 00:07 Nasal Cannula 3.0 32 05/05/18 00:00 95 18 93 Nasal Cannula 3.0 32 05/04/18 21:00 Nasal Cannula 3.0 Nasal Cannula 3.0 Nasal Cannula 3.0 Nasal Cannula 3.0 05/04/18 20:00 97.5 100 17 98/58 (71) 98 05/04/18 16:00 97.5 96 20 93/51 (65) 99 05/04/18 14:49 77 20 99 Nasal Cannula 3.0 28 05/04/18 14:37 22 18 92 Nasal Cannula 3.0 32 05/04/18 12:00 96.5 96 20 96/52 (67) 100 Intake and Output 05/04/18 05/05/18 18:59 06:59 Intake Total 600 ml Output Total 400 ml 300 ml Balance 200 ml -300 ml Intake Oral 600 ml Output Urine Total 400 ml 300 ml Height (Feet): 5 Height (Inches): 7.00 Weight (Pounds): 156 General Appearance: no apparent distress Objective no change Cheo Balderrama MD May 05, 2018 11:52
[2018-05-05 12:00] VITALS: BP 104/64
--- NOTE | 2018-05-05 12:37 | General Surgery Progress Note ---
General Surgery-Progress Note Subjective Symptoms: improved, pain absent, tolerating diet, passing flatus Objective Last 24 Hour Vital Signs Date Time Temp Pulse Resp B/P (MAP) Pulse Ox O2 Delivery O2 Flow Rate FiO2 05/05/18 11:15 94 17 98 Nasal Cannula 3.0 32 05/05/18 11:00 90 16 98 Nasal Cannula 3.0 32 05/05/18 09:19 92 20 97 Nasal Cannula 3.0 32 05/05/18 09:19 92 20 96 Nasal Cannula 3.0 32 05/05/18 09:00 Nasal Cannula 3.0 Nasal Cannula 3.0 Nasal Cannula 3.0 Nasal Cannula 3.0 05/05/18 08:00 97.6 104 20 108/62 (77) 95 05/05/18 07:38 92 18 98 Nasal Cannula 3.0 32 05/05/18 07:27 96 Nasal Cannula 3.0 32 05/05/18 07:27 Nasal Cannula 3.0 32 05/05/18 07:27 97 16 96 Nasal Cannula 3.0 32 05/05/18 03:26 Nasal Cannula 3.0 32 05/05/18 03:24 Nasal Cannula 3.0 32 05/05/18 00:11 85 20 98 Nasal Cannula 3.0 28 05/05/18 00:07 93 Nasal Cannula 3.0 32 05/05/18 00:07 Nasal Cannula 3.0 32 05/05/18 00:00 95 18 93 Nasal Cannula 3.0 32 05/04/18 21:00 Nasal Cannula 3.0 Nasal Cannula 3.0 Nasal Cannula 3.0 Nasal Cannula 3.0 05/04/18 20:00 97.5 100 17 98/58 (71) 98 05/04/18 16:00 97.5 96 20 93/51 (65) 99 05/04/18 14:49 77 20 99 Nasal Cannula 3.0 28 05/04/18 14:37 22 18 92 Nasal Cannula 3.0 32 I&O Intake and Output 05/04/18 05/05/18 19:00 07:00 Intake Total 600 ml Output Total 400 ml 300 ml Balance 200 ml -300 ml Intake Oral 600 ml Output Urine Total 400 ml 300 ml Drains: none Cardiovascular: RSR Respiratory: clear Abdomen: soft, flat, non-tender, present bowel sounds Plan Problems: (1) Abdominal pain Assessment & Plan: abdominal pain. nausea. coffee ground emesis. leukocytosis. labs noted exam benign. abd soft, nt/nd, bs+ CT without obstruction as per report fecal impaction s/p EGD given KUB will order CT with oral contrast to be sure no obstruction --> New nonobstructed small bowel loop extension into right indirect internal hernia , no findings to suggest ischemia or acute abnormality at this time. Findings suggesting bibasilar aspiration, correlate clinically. Bibasilar emphysema could represent alpha-1 antitrypsin deficiency, correlate clinically. Distal esophageal small amount of retained enteric contrast, this could place the patient at risk for aspiration. Unchanged nodular bilateral adrenal thickening, with hazy attenuation, suggesting possible adrenal mild hemorrhage which is of uncertain clinical significance. Correlate with older studies if available to evaluate for stability over time. Consider CT or MRI adrenal glands to further characterize. High-density material along the skin surface in the groin of uncertain significance. Correlate clinically. -hernia reducible and no obstruction noted -no acute surgical intervention planned -okay for diet -bowel regimen -d/c planning thank you will follow with recs. Ilia Rossi May 05, 2018 12:37
[2018-05-05 16:00] VITALS: BP 98/53
[2018-05-05 20:00] VITALS: BP 114/56
--- NOTE | 2018-05-05 20:14 | General Progress Note ---
Assessment/Plan Assessment/Plan Assessment (1) Intractable vomiting ICD Codes: R11.10 - Vomiting, unspecified SNOMED: 457741755, 184022807 Qualifiers: Qualified Codes: R11.2 - Nausea with vomiting, unspecified (2) GERD (gastroesophageal reflux disease) ICD Codes: K21.9 - Gastro-esophageal reflux disease without esophagitis SNOMED: 712610414 (3) Fecal impaction ICD Codes: K56.41 - Fecal impaction SNOMED: 66585208 (4) Anemia ICD Codes: D64.9 - Anemia, unspecified SNOMED: 756822947 (5) Abdominal pain ICD Codes: R10.9 - Unspecified abdominal pain SNOMED: 91008284, 268502759 Qualifiers: Qualified Codes: R10.13 - Epigastric pain (6) Constipation ICD Codes: K59.00 - Constipation, unspecified SNOMED: 05985294 (7) Severe protein-calorie malnutrition ICD Codes: E43 - Unspecified severe protein-calorie malnutrition SNOMED: 765847905 Status: stable, unchanged Assessment/Plan SUMMARY OF FINDINGS: 1. Large hiatal hernia. 2. Minimum distal esophagitis. 3. Gastritis, status post biopsy. RECOMMENDATIONS: 1. Follow up biopsy results. 2. Monitor hemoglobin and hematocrit. Transfuse as needed. 3. Continue on PPI daily given esophagitis. 4. Start diet and advance as tolerated. 5. The patient may benefit from colonoscopy if needed. We will follow closely and make that recommendation later. DC planning Subjective Allergies: Coded Allergies: RISPERIDONE (Verified Allergy, Intermediate, 04/27/16) Subjective above noted no abdominal pain Objective Last 24 Hour Vital Signs Date Time Temp Pulse Resp B/P (MAP) Pulse Ox O2 Delivery O2 Flow Rate FiO2 05/05/18 16:00 97.8 105 19 98/53 (68) 95 05/05/18 15:15 89 19 98 Nasal Cannula 3.0 32 05/05/18 15:01 89 16 96 Nasal Cannula 3.0 32 05/05/18 12:00 97.7 107 20 104/64 (77) 95 05/05/18 11:15 94 17 98 Nasal Cannula 3.0 32 05/05/18 11:00 90 16 98 Nasal Cannula 3.0 32 05/05/18 09:19 92 20 97 Nasal Cannula 3.0 32 05/05/18 09:19 92 20 96 Nasal Cannula 3.0 32 05/05/18 09:00 Nasal Cannula 3.0 Nasal Cannula 3.0 Nasal Cannula 3.0 Nasal Cannula 3.0 05/05/18 08:00 97.6 104 20 108/62 (77) 95 05/05/18 07:38 92 18 98 Nasal Cannula 3.0 32 05/05/18 07:27 96 Nasal Cannula 3.0 32 05/05/18 07:27 Nasal Cannula 3.0 32 05/05/18 07:27 97 16 96 Nasal Cannula 3.0 32 05/05/18 03:26 Nasal Cannula 3.0 32 05/05/18 03:24 Nasal Cannula 3.0 32 05/05/18 00:11 85 20 98 Nasal Cannula 3.0 28 05/05/18 00:07 93 Nasal Cannula 3.0 32 05/05/18 00:07 Nasal Cannula 3.0 32 05/05/18 00:00 95 18 93 Nasal Cannula 3.0 32 05/04/18 21:00 Nasal Cannula 3.0 Nasal Cannula 3.0 Nasal Cannula 3.0 Nasal Cannula 3.0 Intake and Output 05/04/18 05/05/18 19:00 07:00 Intake Total 600 ml Output Total 400 ml 300 ml Balance 200 ml -300 ml Intake Oral 600 ml Output Urine Total 400 ml 300 ml Height (Feet): 5 Height (Inches): 7.00 Weight (Pounds): 156 Objective WDWN NCAT supple CTA RR abd soft no edema Jeff Tipton MD May 05, 2018 20:14
[2018-05-05] MEDS: Miralax 17gm pkt ORAL SCH (21:00)
[2018-05-05] MEDS: Sennosides 8.6mg tab ORAL SCH (21:00)
[2018-05-06] MEDS: Albuterol/Ipratropium 3ml neb HHN SCH ×6 (03:55→23:00)
[2018-05-06 04:00] VITALS: BP 128/60
[2018-05-06] MEDS: Piperacillin/Tazobactam 3.375 GM in D5W 110 ML IVPB SCH ×3 (05:35→21:13)
[2018-05-06 08:00] VITALS: BP 117/56
[2018-05-06] MEDS: Memantine 5 MG TAB ORAL SCH ×2 (09:00→18:00)
[2018-05-06] MEDS: Lactulose 10gm/15ml UDC ORAL SCH ×3 (09:00→18:00)
[2018-05-06] MEDS: ZyPREXA Zydis 5mg tab ORAL SCH ×2 (09:00→18:00)
[2018-05-06] MEDS: Aspirin Baby 81mg ORAL SCH (09:00)
[2018-05-06] MEDS: Docusate 100mg cap ORAL SCH ×2 (09:00→18:00)
[2018-05-06] MEDS: Heparin 5000 units/ml inj SUBQ SCH ×2 (09:00→21:00)
[2018-05-06 12:00] VITALS: BP 104/57
--- NOTE | 2018-05-06 12:08 | Nephrology Progress Note ---
Assessment/Plan Problem List: (1) Acute renal failure (2) Anemia (3) Hypokalemia Assessment episode of Low BP leading to rise of Cr 1.3 to 1.9 - Acute renal failure- Anemia Hypokalemia HypoAlbuminemia Plan no labs as patient refuses- agreed to have it drawn today ! continue current support ? Hospice? Urine studies fluid chalenge as needed Cortés Monitor renal parameters Subjective ROS Limited/Unobtainable: No Constitutional: Reports: weakness Objective Objective Last 24 Hour Vital Signs Date Time Temp Pulse Resp B/P (MAP) Pulse Ox O2 Delivery O2 Flow Rate FiO2 05/06/18 11:30 90 20 97 Nasal Cannula 3.0 32 05/06/18 11:25 92 20 96 Nasal Cannula 3.0 32 05/06/18 09:25 Nasal Cannula 3.0 32 05/06/18 09:24 Nasal Cannula 3.0 32 05/06/18 09:00 Nasal Cannula 3.0 Nasal Cannula 3.0 Nasal Cannula 3.0 Nasal Cannula 3.0 05/06/18 08:02 87 20 97 Nasal Cannula 3.0 32 05/06/18 08:00 97.2 93 22 117/56 (76) 91 05/06/18 07:58 95 Nasal Cannula 3.0 32 05/06/18 07:58 88 18 95 Nasal Cannula 3.0 32 05/06/18 07:58 Nasal Cannula 3.0 32 05/06/18 04:03 89 20 97 Nasal Cannula 3.0 32 05/06/18 04:00 97.4 95 21 128/60 (82) 95 05/06/18 03:57 91 20 96 Nasal Cannula 3.0 32 05/06/18 00:03 85 19 97 Nasal Cannula 3.0 32 05/05/18 23:53 84 16 96 Nasal Cannula 3.0 32 05/05/18 21:00 Nasal Cannula 3.0 Nasal Cannula 3.0 Nasal Cannula 3.0 Nasal Cannula 3.0 05/05/18 20:55 87 19 98 Nasal Cannula 3.0 32 05/05/18 20:49 Nasal Cannula 3.0 32 05/05/18 20:48 97 Nasal Cannula 3.0 32 05/05/18 20:47 85 16 97 Nasal Cannula 3.0 32 05/05/18 20:00 97.6 99 20 114/56 (75) 97 05/05/18 16:00 97.8 105 19 98/53 (68) 95 05/05/18 15:15 89 19 98 Nasal Cannula 3.0 32 05/05/18 15:01 89 16 96 Nasal Cannula 3.0 32 Intake and Output 05/05/18 05/06/18 18:59 06:59 Intake Total 655.0 ml 537.5 ml Output Total 700 ml 2100 ml Balance -45.0 ml -1562.5 ml Intake Oral 600 ml 400 ml IV Total 55.0 ml 137.5 ml Output Urine Total 700 ml 2100 ml # Voids 1 # Bowel Movements 1 Height (Feet): 5 Height (Inches): 7.00 Weight (Pounds): 156 General Appearance: no apparent distress Respiratory/Chest: decreased breath sounds Abdomen: soft Objective no change Cheo Balderrama MD May 06, 2018 12:08
[2018-05-06 13:38] LABS: ANION GAP 10 mmol/L (5-15); BLOOD UREA NITROGEN 16 mg/dL (7-18); CALCIUM 8.7 MG/DL (8.5-10.1); CARBON DIOXIDE 25 MMOL/L (21-32); CHLORIDE 103 MMOL/L (98-107); CREATININE 1.5 MG/DL (0.55-1.30); POTASSIUM 4.2 MMOL/L (3.5-5.1); SODIUM 138 MMOL/L (136-145)
[2018-05-06 13:41] LABS: ALANINE AMINOTRANSFERASE 16 U/L (12-78); ALBUMIN 1.6 G/DL (3.4-5.0); ALBUMIN/GLOBULIN RATIO 0.4 (1.0-2.7); ALKALINE PHOSPHATASE 81 U/L (46-116); ASPARTATE AMINO TRANSFERASE 22 U/L (15-37); BILIRUBIN,TOTAL 0.5 MG/DL (0.2-1.0)
[2018-05-06 13:50] LABS: PHOSPHORUS 3.6 MG/DL (2.5-4.9)
--- NOTE | 2018-05-06 15:50 | Cardiac Electrophysiology PN ---
Assessment/Plan Assessment/Plan 1. HTN, Stable off any BP meds 2. COPD, PNA on abx and nasal cannula. FU DR Sánchez 3. Intractable vomiting Fu Dr Sy and Flo. S/P CT abdomen 4. Chest pain, atypical 5. DM2 DW RN Subjective Subjective No CP. RN at bedside. Objective Last 24 Hour Vital Signs Date Time Temp Pulse Resp B/P (MAP) Pulse Ox O2 Delivery O2 Flow Rate FiO2 05/06/18 15:30 93 20 98 Nasal Cannula 3.0 32 05/06/18 15:16 88 20 95 Nasal Cannula 3.0 32 05/06/18 12:00 96.4 94 23 104/57 (73) 98 05/06/18 11:30 90 20 97 Nasal Cannula 3.0 32 05/06/18 11:25 92 20 96 Nasal Cannula 3.0 32 05/06/18 09:25 Nasal Cannula 3.0 32 05/06/18 09:24 Nasal Cannula 3.0 32 05/06/18 09:00 Nasal Cannula 3.0 Nasal Cannula 3.0 Nasal Cannula 3.0 Nasal Cannula 3.0 05/06/18 08:02 87 20 97 Nasal Cannula 3.0 32 05/06/18 08:00 97.2 93 22 117/56 (76) 91 05/06/18 07:58 95 Nasal Cannula 3.0 32 05/06/18 07:58 88 18 95 Nasal Cannula 3.0 32 05/06/18 07:58 Nasal Cannula 3.0 32 05/06/18 04:03 89 20 97 Nasal Cannula 3.0 32 05/06/18 04:00 97.4 95 21 128/60 (82) 95 05/06/18 03:57 91 20 96 Nasal Cannula 3.0 32 05/06/18 00:03 85 19 97 Nasal Cannula 3.0 32 05/05/18 23:53 84 16 96 Nasal Cannula 3.0 32 05/05/18 21:00 Nasal Cannula 3.0 Nasal Cannula 3.0 Nasal Cannula 3.0 Nasal Cannula 3.0 05/05/18 20:55 87 19 98 Nasal Cannula 3.0 32 05/05/18 20:49 Nasal Cannula 3.0 32 05/05/18 20:48 97 Nasal Cannula 3.0 32 05/05/18 20:47 85 16 97 Nasal Cannula 3.0 32 05/05/18 20:00 97.6 99 20 114/56 (75) 97 05/05/18 16:00 97.8 105 19 98/53 (68) 95 Intake and Output 05/05/18 05/06/18 19:00 07:00 Intake Total 655.0 ml 537.5 ml Output Total 700 ml 2100 ml Balance -45.0 ml -1562.5 ml Intake Oral 600 ml 400 ml IV Total 55.0 ml 137.5 ml Output Urine Total 700 ml 2100 ml # Voids 1 # Bowel Movements 1 Laboratory Tests Test 05/06/18 13:00 Sodium Level 138 MMOL/L (136-145) Potassium Level 4.2 MMOL/L (3.5-5.1) Chloride Level 103 MMOL/L (98-107) Carbon Dioxide Level 25 MMOL/L (21-32) Anion Gap 10 mmol/L (5-15) Blood Urea Nitrogen 16 mg/dL (7-18) Creatinine 1.5 MG/DL (0.55-1.30) H Estimat Glomerular Filtration Rate mL/min (>60) Glucose Level 85 MG/DL (74-106) Uric Acid 4.4 MG/DL (2.6-7.2) Calcium Level 8.7 MG/DL (8.5-10.1) Phosphorus Level 3.6 MG/DL (2.5-4.9) Magnesium Level 1.9 MG/DL (1.8-2.4) Total Bilirubin 0.5 MG/DL (0.2-1.0) Aspartate Amino Transf (AST/SGOT) 22 U/L (15-37) Alanine Aminotransferase (ALT/SGPT) 16 U/L (12-78) Alkaline Phosphatase 81 U/L (46-116) Total Protein 6.1 G/DL (6.4-8.2) L Albumin 1.6 G/DL (3.4-5.0) L Globulin 4.5 g/dL Albumin/Globulin Ratio 0.4 (1.0-2.7) L Objective HEENT: No JVD . Cardiovascular: normal rate, regular rhythm Respiratory/Chest: Coarse rhonchi Abdomen: soft, no organomegaly Extremities: no swelling Ralph Loomis MD May 06, 2018 15:50
[2018-05-06 18:23] LABS: HEMATOCRIT 24.7 % (42.0-52.0); HEMOGLOBIN 7.8 G/DL (14.2-18.0); MEAN CORPUSCULAR VOLUME 92 FL (80-99); PLATELET COUNT 342 K/UL (150-450); RED BLOOD COUNT 2.69 M/UL (4.70-6.10); RED CELL DISTRIBUTION WIDTH 16.3 % (11.6-14.8); WHITE BLOOD COUNT 10.7 K/UL (4.8-10.8)
--- NOTE | 2018-05-06 19:20 | General Progress Note ---
Assessment/Plan Assessment/Plan Assessment (1) Intractable vomiting ICD Codes: R11.10 - Vomiting, unspecified SNOMED: 469817517, 163047268 Qualifiers: Qualified Codes: R11.2 - Nausea with vomiting, unspecified (2) GERD (gastroesophageal reflux disease) ICD Codes: K21.9 - Gastro-esophageal reflux disease without esophagitis SNOMED: 801037177 (3) Fecal impaction ICD Codes: K56.41 - Fecal impaction SNOMED: 07950350 (4) Anemia ICD Codes: D64.9 - Anemia, unspecified SNOMED: 609985277 (5) Abdominal pain ICD Codes: R10.9 - Unspecified abdominal pain SNOMED: 62891286, 585254963 Qualifiers: Qualified Codes: R10.13 - Epigastric pain (6) Constipation ICD Codes: K59.00 - Constipation, unspecified SNOMED: 87697639 (7) Severe protein-calorie malnutrition ICD Codes: E43 - Unspecified severe protein-calorie malnutrition SNOMED: 316672041 Status: stable, unchanged Assessment/Plan SUMMARY OF FINDINGS: 1. Large hiatal hernia. 2. Minimum distal esophagitis. 3. Gastritis, status post biopsy. RECOMMENDATIONS: 1. Follow up biopsy results. 2. Monitor hemoglobin and hematocrit. Transfuse as needed. 3. Continue on PPI daily given esophagitis. 4. PO diet tolerated. 5. The patient may benefit from colonoscopy - can do as outpatient if patient agreeable Subjective Allergies: Coded Allergies: RISPERIDONE (Verified Allergy, Intermediate, 04/27/16) Subjective above noted no abdominal pain Objective Last 24 Hour Vital Signs Date Time Temp Pulse Resp B/P (MAP) Pulse Ox O2 Delivery O2 Flow Rate FiO2 05/06/18 15:30 93 20 98 Nasal Cannula 3.0 32 05/06/18 15:16 88 20 95 Nasal Cannula 3.0 32 05/06/18 12:00 96.4 94 23 104/57 (73) 98 05/06/18 11:30 90 20 97 Nasal Cannula 3.0 32 05/06/18 11:25 92 20 96 Nasal Cannula 3.0 32 05/06/18 09:25 Nasal Cannula 3.0 32 05/06/18 09:24 Nasal Cannula 3.0 32 05/06/18 09:00 Nasal Cannula 3.0 Nasal Cannula 3.0 Nasal Cannula 3.0 Nasal Cannula 3.0 05/06/18 08:02 87 20 97 Nasal Cannula 3.0 32 05/06/18 08:00 97.2 93 22 117/56 (76) 91 05/06/18 07:58 95 Nasal Cannula 3.0 32 05/06/18 07:58 88 18 95 Nasal Cannula 3.0 32 05/06/18 07:58 Nasal Cannula 3.0 32 05/06/18 04:03 89 20 97 Nasal Cannula 3.0 32 05/06/18 04:00 97.4 95 21 128/60 (82) 95 05/06/18 03:57 91 20 96 Nasal Cannula 3.0 32 05/06/18 00:03 85 19 97 Nasal Cannula 3.0 32 05/05/18 23:53 84 16 96 Nasal Cannula 3.0 32 05/05/18 21:00 Nasal Cannula 3.0 Nasal Cannula 3.0 Nasal Cannula 3.0 Nasal Cannula 3.0 05/05/18 20:55 87 19 98 Nasal Cannula 3.0 32 05/05/18 20:49 Nasal Cannula 3.0 32 05/05/18 20:48 97 Nasal Cannula 3.0 32 05/05/18 20:47 85 16 97 Nasal Cannula 3.0 32 05/05/18 20:00 97.6 99 20 114/56 (75) 97 Intake and Output 05/05/18 05/06/18 19:00 07:00 Intake Total 655.0 ml 537.5 ml Output Total 700 ml 2100 ml Balance -45.0 ml -1562.5 ml Intake Oral 600 ml 400 ml IV Total 55.0 ml 137.5 ml Output Urine Total 700 ml 2100 ml # Voids 1 # Bowel Movements 1 Laboratory Tests 05/06/18 13:00: Sodium Level 138, Potassium Level 4.2, Chloride Level 103, Carbon Dioxide Level 25, Anion Gap 10, Blood Urea Nitrogen 16, Creatinine 1.5H, Estimat Glomerular Filtration Rate , Glucose Level 85, Uric Acid 4.4, Calcium Level 8.7, Phosphorus Level 3.6, Magnesium Level 1.9, Total Bilirubin 0.5, Aspartate Amino Transf (AST/SGOT) 22, Alanine Aminotransferase (ALT/SGPT) 16, Alkaline Phosphatase 81, Total Protein 6.1L, Albumin 1.6L, Globulin 4.5, Albumin/ Globulin Ratio 0.4L 05/06/18 17:00: White Blood Count 10.7, Red Blood Count 2.69L, Hemoglobin 7.8L, Hematocrit 24.7L , Mean Corpuscular Volume 92, Mean Corpuscular Hemoglobin 29.1, Mean Corpuscular Hemoglobin Concent 31.7L, Red Cell Distribution Width 16.3H, Platelet Count 342, Mean Platelet Volume 5.7L, Neutrophils (%) (Auto) , Lymphocytes (%) (Auto) , Monocytes (%) (Auto) , Eosinophils (%) (Auto) , Basophils (%) (Auto) , Neutrophils % (Manual) [Pending], Lymphocytes % (Manual) [Pending], Platelet Estimate [Pending], Platelet Morphology [Pending] Height (Feet): 5 Height (Inches): 7.00 Weight (Pounds): 156 Objective WDWN NCAT supple CTA RR abd soft no edema Jeff Tipton MD May 06, 2018 19:20
[2018-05-06 20:00] VITALS: BP 110/79
[2018-05-06] MEDS: Miralax 17gm pkt ORAL SCH (21:00)
[2018-05-06] MEDS: Sennosides 8.6mg tab ORAL SCH (21:00)
--- NOTE | 2018-05-06 22:07 | General Progress Note ---
Assessment/Plan Assessment/Plan # Anemia of iron deficiency is likely related to gi bleed --> anemia panel has been reviewed --> transfuse if hgb <7 --> iv iron has been started --> egd was completed and shows gastritis, distal esophagitis is on ppi --> Blood tx: 04/29, hgb trend 9.5-->7.9-->8.2-->7.8 # Masslike opacity in the left upper lobe and nodular opacity in the medial left lower lobe. Findings may be related to pneumonia although underlying scarring/fibrotic change or neoplasm/malignancy cannot be excluded. Recommend clinical correlation and short-term interval follow-up imaging after appropriate treatment to assess for resolution. Evidence of prior granulomatous exposure with scattered calcified granulomas and calcified hilar or mediastinal lymph nodes. --> would repeat ct chest in 3 months --> if growing, enlarged, consider a ct guided bx # Leukocytosis likely reactive process from anemia --> ID is following, appreciate recs --> Monitor and trend wbc for improvement --> WBC remains elevated --> Remains on abx # GERD: continue on ppi # DM2, # HTN, # COPD # Emesis # Tachycardia # Chest pain, atypical angina Greatly appreciate consultation! Subjective Constitutional: Denies: no symptoms, chills, diaphoresis, fever, malaise, weakness, other HEENT: Denies: no symptoms, eye pain, blurred vision, tearing, double vision, ear pain, ear discharge, nose pain, nose congestion, throat pain, throat swelling, mouth pain, mouth swelling, other Cardiovascular: Denies: no symptoms, chest pain, edema, irregular heart rate, lightheadedness, palpitations, syncope, other Respiratory: Denies: no symptoms, cough, orthopnea, shortness of breath, SOB with excertion, SOB at rest, sputum, stridor, wheezing, other Gastrointestinal/Abdominal: Denies: no symptoms, abdomen distended, abdominal pain, black stools, tarry stools, blood in stool, constipated, diarrhea, difficulty swallowing, nausea, poor appetite, poor fluid intake, rectal bleeding , vomiting, other Genitourinary: Denies: no symptoms, burning, discharge, frequency, flank pain, hematuria, incontinence, pain, urgency, other Endocrine: Denies: no symptoms, excessive sweating, flushing, intolerance to cold, intolerance to heat, increased hunger, increased thirst, increased urine, unexplained weight gain, unexplained weight loss, other Allergies: Coded Allergies: RISPERIDONE (Verified Allergy, Intermediate, 04/27/16) Subjective 04/29: tolerating iv iron very well, h/h pending from today, will re-order cbc 04/30: Pt awake and alert. On NC. S/P blood tx, Hgb improved to 9.5. WBC remains elevated, afebrile, on abx. 05/02: no events breathing better 05/03: Pt awake and alert. Pt refusing care. 05/04: 3L nc, labs have been ordered, got rt, refusing certain labs and care 05/06: no events, no changes, no f/c, labs reviewed, has recently been refusing them Objective Last 24 Hour Vital Signs Date Time Temp Pulse Resp B/P (MAP) Pulse Ox O2 Delivery O2 Flow Rate FiO2 05/06/18 20:07 Nasal Cannula 3.0 32 05/06/18 20:06 Nasal Cannula 3.0 32 05/06/18 20:05 Nasal Cannula 3.0 32 05/06/18 20:05 95 Nasal Cannula 3.0 32 05/06/18 20:00 97.7 109 19 110/79 (89) 91 05/06/18 15:30 93 20 98 Nasal Cannula 3.0 32 05/06/18 15:16 88 20 95 Nasal Cannula 3.0 32 05/06/18 12:00 96.4 94 23 104/57 (73) 98 05/06/18 11:30 90 20 97 Nasal Cannula 3.0 32 05/06/18 11:25 92 20 96 Nasal Cannula 3.0 32 05/06/18 09:25 Nasal Cannula 3.0 32 05/06/18 09:24 Nasal Cannula 3.0 32 05/06/18 09:00 Nasal Cannula 3.0 Nasal Cannula 3.0 Nasal Cannula 3.0 Nasal Cannula 3.0 05/06/18 08:02 87 20 97 Nasal Cannula 3.0 32 05/06/18 08:00 97.2 93 22 117/56 (76) 91 05/06/18 07:58 95 Nasal Cannula 3.0 32 05/06/18 07:58 88 18 95 Nasal Cannula 3.0 32 05/06/18 07:58 Nasal Cannula 3.0 32 05/06/18 04:03 89 20 97 Nasal Cannula 3.0 32 05/06/18 04:00 97.4 95 21 128/60 (82) 95 05/06/18 03:57 91 20 96 Nasal Cannula 3.0 32 05/06/18 00:03 85 19 97 Nasal Cannula 3.0 32 05/05/18 23:53 84 16 96 Nasal Cannula 3.0 32 Intake and Output 05/05/18 05/06/18 19:00 07:00 Intake Total 655.0 ml 537.5 ml Output Total 700 ml 2100 ml Balance -45.0 ml -1562.5 ml Intake Oral 600 ml 400 ml IV Total 55.0 ml 137.5 ml Output Urine Total 700 ml 2100 ml # Voids 1 # Bowel Movements 1 Laboratory Tests 05/06/18 13:00: Sodium Level 138, Potassium Level 4.2, Chloride Level 103, Carbon Dioxide Level 25, Anion Gap 10, Blood Urea Nitrogen 16, Creatinine 1.5H, Estimat Glomerular Filtration Rate , Glucose Level 85, Uric Acid 4.4, Calcium Level 8.7, Phosphorus Level 3.6, Magnesium Level 1.9, Total Bilirubin 0.5, Aspartate Amino Transf (AST/SGOT) 22, Alanine Aminotransferase (ALT/SGPT) 16, Alkaline Phosphatase 81, Total Protein 6.1L, Albumin 1.6L, Globulin 4.5, Albumin/ Globulin Ratio 0.4L 05/06/18 17:00: White Blood Count 10.7, Red Blood Count 2.69L, Hemoglobin 7.8L, Hematocrit 24.7L , Mean Corpuscular Volume 92, Mean Corpuscular Hemoglobin 29.1, Mean Corpuscular Hemoglobin Concent 31.7L, Red Cell Distribution Width 16.3H, Platelet Count 342, Mean Platelet Volume 5.7L, Neutrophils (%) (Auto) , Lymphocytes (%) (Auto) , Monocytes (%) (Auto) , Eosinophils (%) (Auto) , Basophils (%) (Auto) , Differential Total Cells Counted 100, Neutrophils % ( Manual) 76H, Lymphocytes % (Manual) 10L, Monocytes % (Manual) 5, Eosinophils % ( Manual) 9H, Basophils % (Manual) 0, Band Neutrophils 0, Platelet Estimate Adequate, Platelet Morphology Normal, Hypochromasia 1+, Anisocytosis 1+ Height (Feet): 5 Height (Inches): 7.00 Weight (Pounds): 156 General Appearance: lethargic EENT: TMs normal Neck: normal alignment Cardiovascular: normal rate Abdomen: non tender, no mass Extremities: non-tender Edema: mild edema Neurologic: oriented x 3 Skin: warm/dry Nick Bishop MD May 06, 2018 22:07
--- NOTE | 2018-05-06 22:13 | General Progress Note ---
Assessment/Plan Problem List: (1) Hypertension ICD Codes: I10 - Essential (primary) hypertension SNOMED: 33805103 (2) Severe protein-calorie malnutrition ICD Codes: E43 - Unspecified severe protein-calorie malnutrition SNOMED: 844642550 (3) CKD (chronic kidney disease) ICD Codes: N18.9 - Chronic kidney disease, unspecified SNOMED: 826454843 (4) Acute renal failure ICD Codes: N17.9 - Acute kidney failure, unspecified SNOMED: 76466038 (5) Hypokalemia ICD Codes: E87.6 - Hypokalemia SNOMED: 08306590 (6) Abdominal pain ICD Codes: R10.9 - Unspecified abdominal pain SNOMED: 47106837, 461514815 Qualifiers: Qualified Codes: R10.13 - Epigastric pain Assessment/Plan cri abdomina pain improving lyte abnormality malnutriton reviewed chart and labs htn vitals stable Subjective ROS Limited/Unobtainable: Yes Allergies: Coded Allergies: RISPERIDONE (Verified Allergy, Intermediate, 04/27/16) Objective Last 24 Hour Vital Signs Date Time Temp Pulse Resp B/P (MAP) Pulse Ox O2 Delivery O2 Flow Rate FiO2 05/06/18 20:07 Nasal Cannula 3.0 32 05/06/18 20:06 Nasal Cannula 3.0 32 05/06/18 20:05 Nasal Cannula 3.0 32 05/06/18 20:05 95 Nasal Cannula 3.0 32 05/06/18 20:00 97.7 109 19 110/79 (89) 91 05/06/18 15:30 93 20 98 Nasal Cannula 3.0 32 05/06/18 15:16 88 20 95 Nasal Cannula 3.0 32 05/06/18 12:00 96.4 94 23 104/57 (73) 98 05/06/18 11:30 90 20 97 Nasal Cannula 3.0 32 05/06/18 11:25 92 20 96 Nasal Cannula 3.0 32 05/06/18 09:25 Nasal Cannula 3.0 32 05/06/18 09:24 Nasal Cannula 3.0 32 05/06/18 09:00 Nasal Cannula 3.0 Nasal Cannula 3.0 Nasal Cannula 3.0 Nasal Cannula 3.0 05/06/18 08:02 87 20 97 Nasal Cannula 3.0 32 05/06/18 08:00 97.2 93 22 117/56 (76) 91 05/06/18 07:58 95 Nasal Cannula 3.0 32 05/06/18 07:58 88 18 95 Nasal Cannula 3.0 32 05/06/18 07:58 Nasal Cannula 3.0 32 05/06/18 04:03 89 20 97 Nasal Cannula 3.0 32 05/06/18 04:00 97.4 95 21 128/60 (82) 95 05/06/18 03:57 91 20 96 Nasal Cannula 3.0 32 05/06/18 00:03 85 19 97 Nasal Cannula 3.0 32 05/05/18 23:53 84 16 96 Nasal Cannula 3.0 32 Intake and Output 05/05/18 05/06/18 19:00 07:00 Intake Total 655.0 ml 537.5 ml Output Total 700 ml 2100 ml Balance -45.0 ml -1562.5 ml Intake Oral 600 ml 400 ml IV Total 55.0 ml 137.5 ml Output Urine Total 700 ml 2100 ml # Voids 1 # Bowel Movements 1 Laboratory Tests 05/06/18 13:00: Sodium Level 138, Potassium Level 4.2, Chloride Level 103, Carbon Dioxide Level 25, Anion Gap 10, Blood Urea Nitrogen 16, Creatinine 1.5H, Estimat Glomerular Filtration Rate , Glucose Level 85, Uric Acid 4.4, Calcium Level 8.7, Phosphorus Level 3.6, Magnesium Level 1.9, Total Bilirubin 0.5, Aspartate Amino Transf (AST/SGOT) 22, Alanine Aminotransferase (ALT/SGPT) 16, Alkaline Phosphatase 81, Total Protein 6.1L, Albumin 1.6L, Globulin 4.5, Albumin/ Globulin Ratio 0.4L 05/06/18 17:00: White Blood Count 10.7, Red Blood Count 2.69L, Hemoglobin 7.8L, Hematocrit 24.7L , Mean Corpuscular Volume 92, Mean Corpuscular Hemoglobin 29.1, Mean Corpuscular Hemoglobin Concent 31.7L, Red Cell Distribution Width 16.3H, Platelet Count 342, Mean Platelet Volume 5.7L, Neutrophils (%) (Auto) , Lymphocytes (%) (Auto) , Monocytes (%) (Auto) , Eosinophils (%) (Auto) , Basophils (%) (Auto) , Differential Total Cells Counted 100, Neutrophils % ( Manual) 76H, Lymphocytes % (Manual) 10L, Monocytes % (Manual) 5, Eosinophils % ( Manual) 9H, Basophils % (Manual) 0, Band Neutrophils 0, Platelet Estimate Adequate, Platelet Morphology Normal, Hypochromasia 1+, Anisocytosis 1+ Height (Feet): 5 Height (Inches): 7.00 Weight (Pounds): 156 Cardiovascular: normal rate Respiratory/Chest: lungs clear Abdomen: soft Jay Wadsworth MD May 06, 2018 22:13
[2018-05-07] MEDS: Albuterol/Ipratropium 3ml neb HHN SCH ×6 (03:05→23:58)
[2018-05-07] MEDS: Piperacillin/Tazobactam 3.375 GM in D5W 110 ML IVPB SCH ×3 (05:04→21:58)
[2018-05-07 08:00] VITALS: BP 119/57
[2018-05-07] MEDS: Lactulose 10gm/15ml UDC ORAL SCH ×3 (09:00→18:00)
--- NOTE | 2018-05-07 09:43 | Infectious Diseases Prog Note ---
Assessment/Plan Assessment/Plan Sepsis, improving- likely from intraabdominal source and PNA- Lung opacities- r/o inefctions vs malignancy -sp cx PSA and yeast -CT Chest: Severe emphysema with masslike opacity in the left upper lobe and nodular opacity in the medial left lower lobe. Findings may be related to pneumonia although underlying scarring/fibrotic change or neoplasm/malignancy cannot be excluded. Recommend clinical correlation and short-term interval follow-up imaging after appropriate treatment to assess for resolution. Evidence of prior granulomatous exposure with scattered calcified granulomas and calcified hilar or mediastinal lymph nodes. Trace pleural effusions versus pleural thickening. u/a neg Bcx NTD CXR: Ill-defined airspace opacity at the left apex and right perihilar to mid area not significantly changed in appearance may represent multifocal pneumonia. Ill-defined 2 cm nodular density at the medial left lower lung concerning for lesion partially imaged on CT of the abdomen and pelvis. Difficult to exclude a 1.4 cm ill-defined lesion at the right apex superimposed over the posterior right fourth rib. Sequela of previous granulomatous disease and hyperinflation, emphysematous change of the left mid to lower lung again noted -neg HIV ab sc Coffee ground emesis Abdominal pain- ileus vs SBP -KUB: 1Diffuse gaseous distention of large and small bowel loops, nonspecific. This may suggest ileus or partial obstruction. Fecal retention in the right colon, which may suggest constipation. -CT ab/p p Afebrile Leukocytosis, improving Recent PNA, s/p Rx -04/17 sp cx MRSA, PsA (franklin S) -influenz sc neg - HIV : neg GERD DM2 HTN COPD SNF resident anemia BPH PVD cachectic DNR Plan: -Continue empiric Zosyn # -05/05/18 SP IV Vancomycin # 6 -04/22 SP PO Levaquin and Linezolid #7 -04/16 SP Augmentin #1 -Monitor CBC/CMP, temperatures -GI, Sx fu -aspiration precautions Thank you for this consultation. Will continue to follow along with you. Subjective Allergies: Coded Allergies: RISPERIDONE (Verified Allergy, Intermediate, 04/27/16) Subjective Afebrile Leukocytosis resolved Satting well on 3L NC awake and talking Ate breakfast Objective Vital Signs Last 24 Hour Vital Signs Date Time Temp Pulse Resp B/P (MAP) Pulse Ox O2 Delivery O2 Flow Rate FiO2 05/07/18 07:42 88 22 95 Nasal Cannula 3.0 32 05/07/18 07:39 88 22 95 Nasal Cannula 3.0 32 05/07/18 07:37 88 22 95 Nasal Cannula 3.0 32 05/07/18 07:29 Nasal Cannula 3.0 32 05/07/18 07:28 95 Nasal Cannula 3.0 32 05/07/18 07:27 88 22 95 Nasal Cannula 3.0 32 05/07/18 03:15 91 20 97 Nasal Cannula 3.0 32 05/07/18 03:05 90 24 94 Nasal Cannula 3.0 32 05/06/18 23:10 Nasal Cannula 3.0 32 05/06/18 23:10 Nasal Cannula 3.0 32 05/06/18 21:00 Nasal Cannula 3.0 Nasal Cannula 3.0 Nasal Cannula 3.0 Nasal Cannula 3.0 05/06/18 20:07 Nasal Cannula 3.0 32 05/06/18 20:06 Nasal Cannula 3.0 32 05/06/18 20:05 Nasal Cannula 3.0 32 05/06/18 20:05 95 Nasal Cannula 3.0 32 05/06/18 20:00 97.7 109 19 110/79 (89) 91 05/06/18 15:30 93 20 98 Nasal Cannula 3.0 32 05/06/18 15:16 88 20 95 Nasal Cannula 3.0 32 05/06/18 12:00 96.4 94 23 104/57 (73) 98 05/06/18 11:30 90 20 97 Nasal Cannula 3.0 32 05/06/18 11:25 92 20 96 Nasal Cannula 3.0 32 Height (Feet): 5 Height (Inches): 7.00 Weight (Pounds): 161 Objective Gen: NAD, Comfortable Cardiovascular: RRR, s1, s2 Respiratory: Course B/L No W Abdomen: soft, flat, non-tender, present bowel sounds Extremities: no tenderness, no cyanosis Laboratory Tests Test 05/06/18 13:00 05/06/18 17:00 Sodium Level 138 MMOL/L (136-145) Potassium Level 4.2 MMOL/L (3.5-5.1) Chloride Level 103 MMOL/L (98-107) Carbon Dioxide Level 25 MMOL/L (21-32) Anion Gap 10 mmol/L (5-15) Blood Urea Nitrogen 16 mg/dL (7-18) Creatinine 1.5 MG/DL (0.55-1.30) H Estimat Glomerular Filtration Rate mL/min (>60) Glucose Level 85 MG/DL (74-106) Uric Acid 4.4 MG/DL (2.6-7.2) Calcium Level 8.7 MG/DL (8.5-10.1) Phosphorus Level 3.6 MG/DL (2.5-4.9) Magnesium Level 1.9 MG/DL (1.8-2.4) Total Bilirubin 0.5 MG/DL (0.2-1.0) Aspartate Amino Transf (AST/SGOT) 22 U/L (15-37) Alanine Aminotransferase (ALT/SGPT) 16 U/L (12-78) Alkaline Phosphatase 81 U/L (46-116) Total Protein 6.1 G/DL (6.4-8.2) L Albumin 1.6 G/DL (3.4-5.0) L Globulin 4.5 g/dL Albumin/Globulin Ratio 0.4 (1.0-2.7) L White Blood Count 10.7 K/UL (4.8-10.8) Red Blood Count 2.69 M/UL (4.70-6.10) L Hemoglobin 7.8 G/DL (14.2-18.0) L Hematocrit 24.7 % (42.0-52.0) L Mean Corpuscular Volume 92 FL (80-99) Mean Corpuscular Hemoglobin 29.1 PG (27.0-31.0) Mean Corpuscular Hemoglobin Concent 31.7 G/DL (32.0-36.0) L Red Cell Distribution Width 16.3 % (11.6-14.8) H Platelet Count 342 K/UL (150-450) Mean Platelet Volume 5.7 FL (6.5-10.1) L Neutrophils (%) (Auto) % (45.0-75.0) Lymphocytes (%) (Auto) % (20.0-45.0) Monocytes (%) (Auto) % (1.0-10.0) Eosinophils (%) (Auto) % (0.0-3.0) Basophils (%) (Auto) % (0.0-2.0) Differential Total Cells Counted 100 Neutrophils % (Manual) 76 % (45-75) H Lymphocytes % (Manual) 10 % (20-45) L Monocytes % (Manual) 5 % (1-10) Eosinophils % (Manual) 9 % (0-3) H Basophils % (Manual) 0 % (0-2) Band Neutrophils 0 % (0-8) Platelet Estimate Adequate Platelet Morphology Normal Hypochromasia 1+ Anisocytosis 1+ Current Medications Medications (Trade) Dose Ordered Sig/Amish Route PRN Reason Start Time Stop Time Status Last Admin Dose Admin Acetylcysteine (Mucomyst) 100 mg Q4HRT N 05/03/18 23:00 06/02/18 22:59 05/07/18 07:27 Albuterol/ Ipratropium (Albuterol/ Ipratropium) 3 ml Q4HRT [facility] 05/03/18 11:00 05/08/18 10:59 05/07/18 07:27 Aspirin (ASA) 81 mg DAILY ORAL 04/26/18 09:00 05/26/18 08:59 05/04/18 09:00 Atorvastatin Calcium (Lipitor) 10 mg BEDTIME ORAL 05/01/18 21:00 05/26/18 20:59 05/03/18 20:26 Bisacodyl (Dulcolax) 10 mg DAILYPRN PRN RECTAL Constipation 04/26/18 02:30 05/26/18 02:29 04/27/18 21:06 Docusate Sodium (Colace) 100 mg TWICE A DAY ORAL 04/26/18 09:00 05/26/18 08:59 05/05/18 08:39 Heparin Sodium (Porcine) (Heparin 5000 units/ml) 5,000 units EVERY 12 HOURS SUBQ 04/26/18 09:00 05/26/18 08:59 05/02/18 21:55 Iopamidol (Isovue-300 100ml) 100 ml NOW PRN INJ Radiology Procedure 05/03/18 20:00 06/02/18 19:59 Lactulose (Cephulac) 20 gm THREE TIMES A DAY ORAL 04/27/18 09:00 05/26/18 08:59 05/04/18 17:40 Magnesium Hydroxide (Mom) 30 ml HSPRN PRN ORAL Constipation 04/26/18 02:30 05/26/18 02:29 Memantine (Namenda) 5 mg BID ORAL 04/26/18 18:00 05/26/18 17:59 05/05/18 17:05 Olanzapine (ZyPREXA Zydis) 5 mg BID ORAL 04/26/18 18:00 05/26/18 17:59 05/05/18 17:05 Ondansetron HCl (Zofran) 4 mg Q4H PRN IVP Nausea & Vomiting 04/26/18 02:15 05/26/18 02:14 04/29/18 18:34 Pantoprazole (Protonix) 40 mg BID ORAL 05/01/18 18:00 05/26/18 06:29 05/05/18 17:05 Piperacillin Sod/ Tazobactam Sod 3.375 gm/Dextrose 110 ml @ 27.5 mls/hr EVERY 8 HOURS IVPB 04/26/18 11:30 05/09/18 11:29 05/07/18 05:04 Polyethylene Glycol (Miralax) 17 gm BEDTIME ORAL 04/26/18 21:00 05/26/18 20:59 05/03/18 20:24 Sennosides (Senokot) 17.2 mg BEDTIME ORAL 04/26/18 21:00 05/26/18 20:59 05/03/18 20:26 Sodium Phosphate (Fleet's Sodium Phosl Enema) 133 ml QOD PRN RECTAL Constipation 04/26/18 02:30 05/26/18 02:29 04/28/18 02:21 Tiotropium Aniwa (Spiriva Inhaler) 1 puff DAILY INH 04/26/18 09:00 05/26/18 08:59 05/07/18 07:39 Suraj Elder MD May 07, 2018 09:43
[2018-05-07] MEDS: Aspirin Baby 81mg ORAL SCH (11:04)
[2018-05-07] MEDS: Memantine 5 MG TAB ORAL SCH ×2 (11:05→18:13)
[2018-05-07] MEDS: ZyPREXA Zydis 5mg tab ORAL SCH ×2 (11:05→18:13)
[2018-05-07] MEDS: Docusate 100mg cap ORAL SCH ×2 (11:05→18:14)
[2018-05-07] MEDS: Heparin 5000 units/ml inj SUBQ SCH ×2 (11:06→20:30)
--- NOTE | 2018-05-07 11:12 | General Surgery Progress Note ---
General Surgery-Progress Note Subjective Additional Comments improved. leukocytosis improved. Objective Last 24 Hour Vital Signs Date Time Temp Pulse Resp B/P (MAP) Pulse Ox O2 Delivery O2 Flow Rate FiO2 05/07/18 11:04 85 22 94 Nasal Cannula 3.0 32 05/07/18 07:42 88 22 95 Nasal Cannula 3.0 32 05/07/18 07:39 88 22 95 Nasal Cannula 3.0 32 05/07/18 07:37 88 22 95 Nasal Cannula 3.0 32 05/07/18 07:29 Nasal Cannula 3.0 32 05/07/18 07:28 95 Nasal Cannula 3.0 32 05/07/18 07:27 88 22 95 Nasal Cannula 3.0 32 05/07/18 03:15 91 20 97 Nasal Cannula 3.0 32 05/07/18 03:05 90 24 94 Nasal Cannula 3.0 32 05/06/18 23:10 Nasal Cannula 3.0 32 05/06/18 23:10 Nasal Cannula 3.0 32 05/06/18 21:00 Nasal Cannula 3.0 Nasal Cannula 3.0 Nasal Cannula 3.0 Nasal Cannula 3.0 05/06/18 20:07 Nasal Cannula 3.0 32 05/06/18 20:06 Nasal Cannula 3.0 32 05/06/18 20:05 Nasal Cannula 3.0 32 05/06/18 20:05 95 Nasal Cannula 3.0 32 05/06/18 20:00 97.7 109 19 110/79 (89) 91 05/06/18 15:30 93 20 98 Nasal Cannula 3.0 32 05/06/18 15:16 88 20 95 Nasal Cannula 3.0 32 05/06/18 12:00 96.4 94 23 104/57 (73) 98 05/06/18 11:30 90 20 97 Nasal Cannula 3.0 32 05/06/18 11:25 92 20 96 Nasal Cannula 3.0 32 I&O Intake and Output 05/06/18 05/07/18 19:00 07:00 Intake Total 480 ml 617.5 ml Output Total 1150 ml 1100 ml Balance -670 ml -482.5 ml Intake Oral 480 ml 480 ml IV Total 137.5 ml Output Urine Total 1150 ml 1100 ml Drains: none Cardiovascular: RSR Respiratory: clear Abdomen: soft, flat, non-tender, present bowel sounds Extremities: no cyanosis Laboratory Tests Test 1/1/19 13:00 05/06/18 17:00 Sodium Level 138 MMOL/L (136-145) Potassium Level 4.2 MMOL/L (3.5-5.1) Chloride Level 103 MMOL/L (98-107) Carbon Dioxide Level 25 MMOL/L (21-32) Anion Gap 10 mmol/L (5-15) Blood Urea Nitrogen 16 mg/dL (7-18) Creatinine 1.5 MG/DL (0.55-1.30) H Estimat Glomerular Filtration Rate mL/min (>60) Glucose Level 85 MG/DL (74-106) Uric Acid 4.4 MG/DL (2.6-7.2) Calcium Level 8.7 MG/DL (8.5-10.1) Phosphorus Level 3.6 MG/DL (2.5-4.9) Magnesium Level 1.9 MG/DL (1.8-2.4) Total Bilirubin 0.5 MG/DL (0.2-1.0) Aspartate Amino Transf (AST/SGOT) 22 U/L (15-37) Alanine Aminotransferase (ALT/SGPT) 16 U/L (12-78) Alkaline Phosphatase 81 U/L (46-116) Total Protein 6.1 G/DL (6.4-8.2) L Albumin 1.6 G/DL (3.4-5.0) L Globulin 4.5 g/dL Albumin/Globulin Ratio 0.4 (1.0-2.7) L White Blood Count 10.7 K/UL (4.8-10.8) Red Blood Count 2.69 M/UL (4.70-6.10) L Hemoglobin 7.8 G/DL (14.2-18.0) L Hematocrit 24.7 % (42.0-52.0) L Mean Corpuscular Volume 92 FL (80-99) Mean Corpuscular Hemoglobin 29.1 PG (27.0-31.0) Mean Corpuscular Hemoglobin Concent 31.7 G/DL (32.0-36.0) L Red Cell Distribution Width 16.3 % (11.6-14.8) H Platelet Count 342 K/UL (150-450) Mean Platelet Volume 5.7 FL (6.5-10.1) L Neutrophils (%) (Auto) % (45.0-75.0) Lymphocytes (%) (Auto) % (20.0-45.0) Monocytes (%) (Auto) % (1.0-10.0) Eosinophils (%) (Auto) % (0.0-3.0) Basophils (%) (Auto) % (0.0-2.0) Differential Total Cells Counted 100 Neutrophils % (Manual) 76 % (45-75) H Lymphocytes % (Manual) 10 % (20-45) L Monocytes % (Manual) 5 % (1-10) Eosinophils % (Manual) 9 % (0-3) H Basophils % (Manual) 0 % (0-2) Band Neutrophils 0 % (0-8) Platelet Estimate Adequate Platelet Morphology Normal Hypochromasia 1+ Anisocytosis 1+ Plan Problems: (1) Abdominal pain Assessment & Plan: abdominal pain. nausea. coffee ground emesis. leukocytosis. labs noted exam benign. abd soft, nt/nd, bs+ CT without obstruction as per report fecal impaction s/p EGD given KUB will order CT with oral contrast to be sure no obstruction --> New nonobstructed small bowel loop extension into right indirect internal hernia , no findings to suggest ischemia or acute abnormality at this time. Findings suggesting bibasilar aspiration, correlate clinically. Bibasilar emphysema could represent alpha-1 antitrypsin deficiency, correlate clinically. Distal esophageal small amount of retained enteric contrast, this could place the patient at risk for aspiration. Unchanged nodular bilateral adrenal thickening, with hazy attenuation, suggesting possible adrenal mild hemorrhage which is of uncertain clinical significance. Correlate with older studies if available to evaluate for stability over time. Consider CT or MRI adrenal glands to further characterize. High-density material along the skin surface in the groin of uncertain significance. Correlate clinically. -hernia reducible and no obstruction noted -no acute surgical intervention planned -okay for diet -bowel regimen -d/c planning thank you will follow with recs. Ilia Rossi May 07, 2018 11:12
[2018-05-07 12:00] VITALS: BP 97/45
--- NOTE | 2018-05-07 13:16 | Cardiac Electrophysiology PN ---
Assessment/Plan Assessment/Plan 1. HTN, Stable off any BP meds 2. COPD, PNA on abx and nasal cannula. FU DR Sánchez 3. Intractable vomiting Fu Dr. Landeros. S/P CT abdomen 4. Chest pain, atypical 5. NIDDM DW RN Subjective Subjective No CP. Comfortable in NAD. DC planning in progress Objective Last 24 Hour Vital Signs Date Time Temp Pulse Resp B/P (MAP) Pulse Ox O2 Delivery O2 Flow Rate FiO2 05/07/18 11:16 79 22 95 Nasal Cannula 3.0 32 05/07/18 11:04 85 22 94 Nasal Cannula 3.0 32 05/07/18 08:00 97.0 99 24 119/57 (77) 93 05/07/18 07:42 88 22 95 Nasal Cannula 3.0 32 05/07/18 07:39 88 22 95 Nasal Cannula 3.0 32 05/07/18 07:37 88 22 95 Nasal Cannula 3.0 32 05/07/18 07:29 Nasal Cannula 3.0 32 05/07/18 07:28 95 Nasal Cannula 3.0 32 05/07/18 07:27 88 22 95 Nasal Cannula 3.0 32 05/07/18 03:15 91 20 97 Nasal Cannula 3.0 32 05/07/18 03:05 90 24 94 Nasal Cannula 3.0 32 05/06/18 23:10 Nasal Cannula 3.0 32 05/06/18 23:10 Nasal Cannula 3.0 32 05/06/18 21:00 Nasal Cannula 3.0 Nasal Cannula 3.0 Nasal Cannula 3.0 Nasal Cannula 3.0 05/06/18 20:07 Nasal Cannula 3.0 32 05/06/18 20:06 Nasal Cannula 3.0 32 05/06/18 20:05 Nasal Cannula 3.0 32 05/06/18 20:05 95 Nasal Cannula 3.0 32 05/06/18 20:00 97.7 109 19 110/79 (89) 91 05/06/18 15:30 93 20 98 Nasal Cannula 3.0 32 05/06/18 15:16 88 20 95 Nasal Cannula 3.0 32 Intake and Output 05/06/18 05/07/18 18:59 06:59 Intake Total 480 ml 617.5 ml Output Total 1150 ml 1100 ml Balance -670 ml -482.5 ml Intake Oral 480 ml 480 ml IV Total 137.5 ml Output Urine Total 1150 ml 1100 ml Laboratory Tests Test 05/06/18 17:00 White Blood Count 10.7 K/UL (4.8-10.8) Red Blood Count 2.69 M/UL (4.70-6.10) L Hemoglobin 7.8 G/DL (14.2-18.0) L Hematocrit 24.7 % (42.0-52.0) L Mean Corpuscular Volume 92 FL (80-99) Mean Corpuscular Hemoglobin 29.1 PG (27.0-31.0) Mean Corpuscular Hemoglobin Concent 31.7 G/DL (32.0-36.0) L Red Cell Distribution Width 16.3 % (11.6-14.8) H Platelet Count 342 K/UL (150-450) Mean Platelet Volume 5.7 FL (6.5-10.1) L Neutrophils (%) (Auto) % (45.0-75.0) Lymphocytes (%) (Auto) % (20.0-45.0) Monocytes (%) (Auto) % (1.0-10.0) Eosinophils (%) (Auto) % (0.0-3.0) Basophils (%) (Auto) % (0.0-2.0) Differential Total Cells Counted 100 Neutrophils % (Manual) 76 % (45-75) H Lymphocytes % (Manual) 10 % (20-45) L Monocytes % (Manual) 5 % (1-10) Eosinophils % (Manual) 9 % (0-3) H Basophils % (Manual) 0 % (0-2) Band Neutrophils 0 % (0-8) Platelet Estimate Adequate Platelet Morphology Normal Hypochromasia 1+ Anisocytosis 1+ Objective HEENT: No JVD . Cardiovascular: Normal rate, regular rhythm. No G/R/M Respiratory/Chest: Coarse rhonchi Abdomen: soft, no organomegaly Extremities: no swelling Ralph Loomis MD May 07, 2018 13:16
[2018-05-07 16:00] VITALS: BP 112/65
--- NOTE | 2018-05-07 16:27 | Nephrology Progress Note ---
Assessment/Plan Problem List: (1) Acute renal failure (2) Anemia (3) Hypokalemia Assessment episode of Low BP leading to rise of Cr 1.3 to 1.9 - Acute renal failure-back to 1.5 Anemia Hypokalemia HypoAlbuminemia Plan labs of 05/06 reviewed continue current support ? Hospice? Urine studies fluid chalenge as needed Cortés Monitor renal parameters Subjective ROS Limited/Unobtainable: No Constitutional: Reports: malaise, weakness Objective Objective Last 24 Hour Vital Signs Date Time Temp Pulse Resp B/P (MAP) Pulse Ox O2 Delivery O2 Flow Rate FiO2 05/07/18 11:16 79 22 95 Nasal Cannula 3.0 32 05/07/18 11:04 85 22 94 Nasal Cannula 3.0 32 05/07/18 08:00 97.0 99 24 119/57 (77) 93 05/07/18 07:42 88 22 95 Nasal Cannula 3.0 32 05/07/18 07:39 88 22 95 Nasal Cannula 3.0 32 05/07/18 07:37 88 22 95 Nasal Cannula 3.0 32 05/07/18 07:29 Nasal Cannula 3.0 32 05/07/18 07:28 95 Nasal Cannula 3.0 32 05/07/18 07:27 88 22 95 Nasal Cannula 3.0 32 05/07/18 03:15 91 20 97 Nasal Cannula 3.0 32 05/07/18 03:05 90 24 94 Nasal Cannula 3.0 32 05/06/18 23:10 Nasal Cannula 3.0 32 05/06/18 23:10 Nasal Cannula 3.0 32 05/06/18 21:00 Nasal Cannula 3.0 Nasal Cannula 3.0 Nasal Cannula 3.0 Nasal Cannula 3.0 05/06/18 20:07 Nasal Cannula 3.0 32 05/06/18 20:06 Nasal Cannula 3.0 32 05/06/18 20:05 Nasal Cannula 3.0 32 05/06/18 20:05 95 Nasal Cannula 3.0 32 05/06/18 20:00 97.7 109 19 110/79 (89) 91 Intake and Output 05/06/18 05/07/18 18:59 06:59 Intake Total 480 ml 617.5 ml Output Total 1150 ml 1100 ml Balance -670 ml -482.5 ml Intake Oral 480 ml 480 ml IV Total 137.5 ml Output Urine Total 1150 ml 1100 ml Laboratory Tests 05/06/18 17:00: White Blood Count 10.7, Red Blood Count 2.69L, Hemoglobin 7.8L, Hematocrit 24.7L , Mean Corpuscular Volume 92, Mean Corpuscular Hemoglobin 29.1, Mean Corpuscular Hemoglobin Concent 31.7L, Red Cell Distribution Width 16.3H, Platelet Count 342, Mean Platelet Volume 5.7L, Neutrophils (%) (Auto) , Lymphocytes (%) (Auto) , Monocytes (%) (Auto) , Eosinophils (%) (Auto) , Basophils (%) (Auto) , Differential Total Cells Counted 100, Neutrophils % ( Manual) 76H, Lymphocytes % (Manual) 10L, Monocytes % (Manual) 5, Eosinophils % ( Manual) 9H, Basophils % (Manual) 0, Band Neutrophils 0, Platelet Estimate Adequate, Platelet Morphology Normal, Hypochromasia 1+, Anisocytosis 1+ Height (Feet): 5 Height (Inches): 7.00 Weight (Pounds): 161 General Appearance: no apparent distress Respiratory/Chest: decreased breath sounds Abdomen: soft Objective no change Cheo Balderrama MD May 07, 2018 16:27
--- NOTE | 2018-05-07 17:35 | General Progress Note ---
Assessment/Plan Problem List: (1) Hypertension ICD Codes: I10 - Essential (primary) hypertension SNOMED: 93652484 (2) Severe protein-calorie malnutrition ICD Codes: E43 - Unspecified severe protein-calorie malnutrition SNOMED: 712630117 (3) CKD (chronic kidney disease) ICD Codes: N18.9 - Chronic kidney disease, unspecified SNOMED: 929138685 (4) Acute renal failure ICD Codes: N17.9 - Acute kidney failure, unspecified SNOMED: 37960031 (5) Hypokalemia ICD Codes: E87.6 - Hypokalemia SNOMED: 54714556 (6) Abdominal pain ICD Codes: R10.9 - Unspecified abdominal pain SNOMED: 65544117, 112682320 Qualifiers: Qualified Codes: R10.13 - Epigastric pain Status: stable Assessment/Plan cri afebrile abdominal pain improving reviewed chart and labs and meds vitals stable Subjective ROS Limited/Unobtainable: Yes Allergies: Coded Allergies: RISPERIDONE (Verified Allergy, Intermediate, 04/27/16) Objective Last 24 Hour Vital Signs Date Time Temp Pulse Resp B/P (MAP) Pulse Ox O2 Delivery O2 Flow Rate FiO2 05/07/18 15:56 Nasal Cannula 05/07/18 15:55 Nasal Cannula 05/07/18 11:16 79 22 95 Nasal Cannula 3.0 32 05/07/18 11:04 85 22 94 Nasal Cannula 3.0 32 05/07/18 08:00 97.0 99 24 119/57 (77) 93 05/07/18 07:42 88 22 95 Nasal Cannula 3.0 32 05/07/18 07:39 88 22 95 Nasal Cannula 3.0 32 05/07/18 07:37 88 22 95 Nasal Cannula 3.0 32 05/07/18 07:29 Nasal Cannula 3.0 32 05/07/18 07:28 95 Nasal Cannula 3.0 32 05/07/18 07:27 88 22 95 Nasal Cannula 3.0 32 05/07/18 03:15 91 20 97 Nasal Cannula 3.0 32 05/07/18 03:05 90 24 94 Nasal Cannula 3.0 32 05/06/18 23:10 Nasal Cannula 3.0 32 05/06/18 23:10 Nasal Cannula 3.0 32 05/06/18 21:00 Nasal Cannula 3.0 Nasal Cannula 3.0 Nasal Cannula 3.0 Nasal Cannula 3.0 05/06/18 20:07 Nasal Cannula 3.0 32 05/06/18 20:06 Nasal Cannula 3.0 32 05/06/18 20:05 Nasal Cannula 3.0 32 05/06/18 20:05 95 Nasal Cannula 3.0 32 05/06/18 20:00 97.7 109 19 110/79 (89) 91 Intake and Output 05/06/18 05/07/18 18:59 06:59 Intake Total 480 ml 617.5 ml Output Total 1150 ml 1100 ml Balance -670 ml -482.5 ml Intake Oral 480 ml 480 ml IV Total 137.5 ml Output Urine Total 1150 ml 1100 ml Height (Feet): 5 Height (Inches): 7.00 Weight (Pounds): 161 Neck: supple Cardiovascular: normal rate Respiratory/Chest: lungs clear Jay Wadsworth MD May 07, 2018 17:35
--- NOTE | 2018-05-07 20:07 | General Progress Note ---
Assessment/Plan Assessment/Plan # Anemia of iron deficiency is likely related to gi bleed --> anemia panel has been reviewed --> transfuse if hgb <7 --> iv iron has been started --> egd was completed and shows gastritis, distal esophagitis is on ppi --> Blood tx: 04/29, hgb trend 9.5-->7.9-->8.2-->7.8 # Masslike opacity in the left upper lobe and nodular opacity in the medial left lower lobe. Findings may be related to pneumonia although underlying scarring/fibrotic change or neoplasm/malignancy cannot be excluded. Recommend clinical correlation and short-term interval follow-up imaging after appropriate treatment to assess for resolution. Evidence of prior granulomatous exposure with scattered calcified granulomas and calcified hilar or mediastinal lymph nodes. --> would repeat ct chest in 3 months --> if growing, enlarged, consider a ct guided bx # Leukocytosis likely reactive process from anemia --> ID is following, appreciate recs --> Monitor and trend wbc for improvement --> WBC remains elevated --> Remains on abx # GERD: continue on ppi # DM2, # HTN, # COPD # Emesis # Tachycardia # Chest pain, atypical angina Greatly appreciate consultation! Subjective Constitutional: Denies: no symptoms, chills, diaphoresis, fever, malaise, weakness, other HEENT: Denies: no symptoms, eye pain, blurred vision, tearing, double vision, ear pain, ear discharge, nose pain, nose congestion, throat pain, throat swelling, mouth pain, mouth swelling, other Cardiovascular: Denies: no symptoms, chest pain, edema, irregular heart rate, lightheadedness, palpitations, syncope, other Respiratory: Denies: no symptoms, cough, orthopnea, shortness of breath, SOB with excertion, SOB at rest, sputum, stridor, wheezing, other Gastrointestinal/Abdominal: Denies: no symptoms, abdomen distended, abdominal pain, black stools, tarry stools, blood in stool, constipated, diarrhea, difficulty swallowing, nausea, poor appetite, poor fluid intake, rectal bleeding , vomiting, other Genitourinary: Denies: no symptoms, burning, discharge, frequency, flank pain, hematuria, incontinence, pain, urgency, other Neurologic/Psychiatric: Denies: no symptoms, anxiety, depressed, emotional problems, headache, numbness, paresthesia, pre-existing deficit, seizure, tingling, tremors, weakness, other Endocrine: Denies: no symptoms, excessive sweating, flushing, intolerance to cold, intolerance to heat, increased hunger, increased thirst, increased urine, unexplained weight gain, unexplained weight loss, other Allergies: Coded Allergies: RISPERIDONE (Verified Allergy, Intermediate, 04/27/16) Subjective 04/29: tolerating iv iron very well, h/h pending from today, will re-order cbc 04/30: Pt awake and alert. On NC. S/P blood tx, Hgb improved to 9.5. WBC remains elevated, afebrile, on abx. 05/02: no events breathing better 05/03: Pt awake and alert. Pt refusing care. 05/04: 3L nc, labs have been ordered, got rt, refusing certain labs and care 05/06: no events, no changes, no f/c, labs reviewed, has recently been refusing them 05/07: Pt is awake and alert, resting in bed, episode of Low BP leading to rise of Cr to 1.9 Objective Last 24 Hour Vital Signs Date Time Temp Pulse Resp B/P (MAP) Pulse Ox O2 Delivery O2 Flow Rate FiO2 05/07/18 16:00 97.9 96 24 112/65 (81) 05/07/18 15:56 Nasal Cannula 05/07/18 15:55 Nasal Cannula 05/07/18 12:00 97.5 96 23 97/45 (62) 97 05/07/18 11:16 79 22 95 Nasal Cannula 3.0 32 05/07/18 11:04 85 22 94 Nasal Cannula 3.0 32 05/07/18 09:00 Nasal Cannula 3.0 Nasal Cannula 3.0 Nasal Cannula 3.0 Nasal Cannula 3.0 05/07/18 08:00 97.0 99 24 119/57 (77) 93 05/07/18 07:42 88 22 95 Nasal Cannula 3.0 32 05/07/18 07:39 88 22 95 Nasal Cannula 3.0 32 05/07/18 07:37 88 22 95 Nasal Cannula 3.0 32 05/07/18 07:29 Nasal Cannula 3.0 32 05/07/18 07:28 95 Nasal Cannula 3.0 32 05/07/18 07:27 88 22 95 Nasal Cannula 3.0 32 05/07/18 03:15 91 20 97 Nasal Cannula 3.0 32 05/07/18 03:05 90 24 94 Nasal Cannula 3.0 32 05/06/18 23:10 Nasal Cannula 3.0 32 05/06/18 23:10 Nasal Cannula 3.0 32 05/06/18 21:00 Nasal Cannula 3.0 Nasal Cannula 3.0 Nasal Cannula 3.0 Nasal Cannula 3.0 05/06/18 20:07 Nasal Cannula 3.0 32 05/06/18 20:06 Nasal Cannula 3.0 32 05/06/18 20:05 Nasal Cannula 3.0 32 05/06/18 20:05 95 Nasal Cannula 3.0 32 Intake and Output 05/06/18 05/07/18 19:00 07:00 Intake Total 480 ml 617.5 ml Output Total 1150 ml 1100 ml Balance -670 ml -482.5 ml Intake Oral 480 ml 480 ml IV Total 137.5 ml Output Urine Total 1150 ml 1100 ml Height (Feet): 5 Height (Inches): 7.00 Weight (Pounds): 161 Nick Bishop MD May 07, 2018 20:07
--- NOTE | 2018-05-07 20:27 | Pulmonology Progress Note ---
Assessment/Plan Problems: (1) Lung mass (2) CKD (chronic kidney disease) (3) Severe protein-calorie malnutrition (4) Emphysema of lung (5) Wound of sacral region (6) Intractable vomiting Assessment/Plan pt is poor candidate to do a lung biopsy, symptomatic treatment check electrolytes look for family members Subjective ROS Limited/Unobtainable: Yes Constitutional: Reports: no symptoms HEENT: Repors: no symptoms Respiratory: Reports: no symptoms Allergies: Coded Allergies: RISPERIDONE (Verified Allergy, Intermediate, 04/27/16) Objective Last 24 Hour Vital Signs Date Time Temp Pulse Resp B/P (MAP) Pulse Ox O2 Delivery O2 Flow Rate FiO2 05/07/18 16:00 97.9 96 24 112/65 (81) 05/07/18 15:56 Nasal Cannula 05/07/18 15:55 Nasal Cannula 05/07/18 12:00 97.5 96 23 97/45 (62) 97 05/07/18 11:16 79 22 95 Nasal Cannula 3.0 32 05/07/18 11:04 85 22 94 Nasal Cannula 3.0 32 05/07/18 09:00 Nasal Cannula 3.0 Nasal Cannula 3.0 Nasal Cannula 3.0 Nasal Cannula 3.0 05/07/18 08:00 97.0 99 24 119/57 (77) 93 05/07/18 07:42 88 22 95 Nasal Cannula 3.0 32 05/07/18 07:39 88 22 95 Nasal Cannula 3.0 32 05/07/18 07:37 88 22 95 Nasal Cannula 3.0 32 05/07/18 07:29 Nasal Cannula 3.0 32 05/07/18 07:28 95 Nasal Cannula 3.0 32 05/07/18 07:27 88 22 95 Nasal Cannula 3.0 32 05/07/18 03:15 91 20 97 Nasal Cannula 3.0 32 05/07/18 03:05 90 24 94 Nasal Cannula 3.0 32 05/06/18 23:10 Nasal Cannula 3.0 32 05/06/18 23:10 Nasal Cannula 3.0 32 05/06/18 21:00 Nasal Cannula 3.0 Nasal Cannula 3.0 Nasal Cannula 3.0 Nasal Cannula 3.0 Intake and Output 05/06/18 05/07/18 19:00 07:00 Intake Total 480 ml 617.5 ml Output Total 1150 ml 1100 ml Balance -670 ml -482.5 ml Intake Oral 480 ml 480 ml IV Total 137.5 ml Output Urine Total 1150 ml 1100 ml General Appearance: no acute distress, cachetic HEENT: normocephalic, atraumatic Respiratory/Chest: chest wall non-tender, lungs clear, chest wall tender Cardiovascular: normal rate Abdomen: normal bowel sounds, soft, non tender, no organomegaly Genitourinary: normal external genitalia Extremities: no clubbing Skin: no ulcers Current Medications Medications (Trade) Dose Ordered Sig/Amish Route PRN Reason Start Time Stop Time Status Last Admin Dose Admin Acetylcysteine (Mucomyst) 100 mg Q4HRT N 05/03/18 23:00 06/02/18 22:59 05/07/18 11:04 Albuterol/ Ipratropium (Albuterol/ Ipratropium) 3 ml Q4HRT N 05/03/18 11:00 05/08/18 10:59 05/07/18 11:04 Aspirin (ASA) 81 mg DAILY ORAL 04/26/18 09:00 05/26/18 08:59 05/07/18 11:04 Atorvastatin Calcium (Lipitor) 10 mg BEDTIME ORAL 05/01/18 21:00 05/26/18 20:59 05/03/18 20:26 Bisacodyl (Dulcolax) 10 mg DAILYPRN PRN RECTAL Constipation 04/26/18 02:30 05/26/18 02:29 04/27/18 21:06 Docusate Sodium (Colace) 100 mg TWICE A DAY ORAL 04/26/18 09:00 05/26/18 08:59 05/07/18 18:14 Heparin Sodium (Porcine) (Heparin 5000 units/ml) 5,000 units EVERY 12 HOURS SUBQ 04/26/18 09:00 05/26/18 08:59 05/07/18 11:06 Iopamidol (Isovue-300 100ml) 100 ml NOW PRN INJ Radiology Procedure 05/03/18 20:00 06/02/18 19:59 Lactulose (Cephulac) 20 gm THREE TIMES A DAY ORAL 04/27/18 09:00 05/26/18 08:59 05/04/18 17:40 Magnesium Hydroxide (Mom) 30 ml HSPRN PRN ORAL Constipation 04/26/18 02:30 05/26/18 02:29 Memantine (Namenda) 5 mg BID ORAL 04/26/18 18:00 05/26/18 17:59 05/07/18 18:13 Olanzapine (ZyPREXA Zydis) 5 mg BID ORAL 04/26/18 18:00 05/26/18 17:59 05/07/18 18:13 Ondansetron HCl (Zofran) 4 mg Q4H PRN IVP Nausea & Vomiting 04/26/18 02:15 05/26/18 02:14 04/29/18 18:34 Pantoprazole (Protonix) 40 mg BID ORAL 05/01/18 18:00 05/26/18 06:29 05/07/18 18:13 Piperacillin Sod/ Tazobactam Sod 3.375 gm/Dextrose 110 ml @ 27.5 mls/hr EVERY 8 HOURS IVPB 04/26/18 11:30 05/09/18 11:29 05/07/18 13:39 Polyethylene Glycol (Miralax) 17 gm BEDTIME ORAL 04/26/18 21:00 05/26/18 20:59 05/03/18 20:24 Sennosides (Senokot) 17.2 mg BEDTIME ORAL 04/26/18 21:00 05/26/18 20:59 05/03/18 20:26 Sodium Phosphate (Fleet's Sodium Phosl Enema) 133 ml QOD PRN RECTAL Constipation 04/26/18 02:30 05/26/18 02:29 04/28/18 02:21 Tiotropium [place] (Spiriva Inhaler) 1 puff DAILY INH 04/26/18 09:00 05/26/18 08:59 05/07/18 07:39 Alejandrina Cee MD May 07, 2018 20:27
[2018-05-07] MEDS: Miralax 17gm pkt ORAL SCH (20:30)
[2018-05-07] MEDS: Sennosides 8.6mg tab ORAL SCH (20:30)
--- NOTE | 2018-05-07 21:39 | General Progress Note ---
Assessment/Plan Assessment/Plan Assessment (1) Intractable vomiting ICD Codes: R11.10 - Vomiting, unspecified SNOMED: 087083448, 110939977 Qualifiers: Qualified Codes: R11.2 - Nausea with vomiting, unspecified (2) GERD (gastroesophageal reflux disease) ICD Codes: K21.9 - Gastro-esophageal reflux disease without esophagitis SNOMED: 151446301 (3) Fecal impaction ICD Codes: K56.41 - Fecal impaction SNOMED: 32180742 (4) Anemia ICD Codes: D64.9 - Anemia, unspecified SNOMED: 814906784 (5) Abdominal pain ICD Codes: R10.9 - Unspecified abdominal pain SNOMED: 30288498, 353460303 Qualifiers: Qualified Codes: R10.13 - Epigastric pain (6) Constipation ICD Codes: K59.00 - Constipation, unspecified SNOMED: 17164123 (7) Severe protein-calorie malnutrition ICD Codes: E43 - Unspecified severe protein-calorie malnutrition SNOMED: 790763938 Status: stable, unchanged Assessment/Plan SUMMARY OF FINDINGS: 1. Large hiatal hernia. 2. Minimum distal esophagitis. 3. Gastritis, status post biopsy. RECOMMENDATIONS: 1. Follow up biopsy results. -- > HP (-) gastritis 2. Monitor hemoglobin and hematocrit. Transfuse as needed. 3. Continue on PPI daily given esophagitis. 4. PO diet tolerated. 5. The patient may benefit from colonoscopy - can do as outpatient if patient agreeable Subjective Allergies: Coded Allergies: RISPERIDONE (Verified Allergy, Intermediate, 04/27/16) Subjective above noted no abdominal pain Objective Last 24 Hour Vital Signs Date Time Temp Pulse Resp B/P (MAP) Pulse Ox O2 Delivery O2 Flow Rate FiO2 05/07/18 20:57 Nasal Cannula 3.0 32 05/07/18 20:57 94 Nasal Cannula 3.0 32 05/07/18 20:50 Nasal Cannula 3.0 32 05/07/18 20:50 Nasal Cannula 3.0 32 05/07/18 16:00 97.9 96 24 112/65 (81) 05/07/18 15:56 Nasal Cannula 05/07/18 15:55 Nasal Cannula 05/07/18 12:00 97.5 96 23 97/45 (62) 97 05/07/18 11:16 79 22 95 Nasal Cannula 3.0 32 05/07/18 11:04 85 22 94 Nasal Cannula 3.0 32 05/07/18 09:00 Nasal Cannula 3.0 Nasal Cannula 3.0 Nasal Cannula 3.0 Nasal Cannula 3.0 05/07/18 08:00 97.0 99 24 119/57 (77) 93 05/07/18 07:42 88 22 95 Nasal Cannula 3.0 32 05/07/18 07:39 88 22 95 Nasal Cannula 3.0 32 05/07/18 07:37 88 22 95 Nasal Cannula 3.0 32 05/07/18 07:29 Nasal Cannula 3.0 32 05/07/18 07:28 95 Nasal Cannula 3.0 32 05/07/18 07:27 88 22 95 Nasal Cannula 3.0 32 05/07/18 03:15 91 20 97 Nasal Cannula 3.0 32 05/07/18 03:05 90 24 94 Nasal Cannula 3.0 32 05/06/18 23:10 Nasal Cannula 3.0 32 05/06/18 23:10 Nasal Cannula 3.0 32 Intake and Output 05/06/18 05/07/18 19:00 07:00 Intake Total 480 ml 617.5 ml Output Total 1150 ml 1100 ml Balance -670 ml -482.5 ml Intake Oral 480 ml 480 ml IV Total 137.5 ml Output Urine Total 1150 ml 1100 ml Height (Feet): 5 Height (Inches): 7.00 Weight (Pounds): 161 Objective WDWN NCAT supple CTA RR abd soft no edema Jeff Tipton MD May 07, 2018 21:39
[2018-05-08] MEDS: Albuterol/Ipratropium 3ml neb HHN SCH ×4 (02:54→23:31)
[2018-05-08 04:00] VITALS: BP 101/58
[2018-05-08] MEDS: Piperacillin/Tazobactam 3.375 GM in D5W 110 ML IVPB SCH ×3 (05:50→22:40)
[2018-05-08 08:00] VITALS: BP 111/52
[2018-05-08] MEDS: Docusate 100mg cap ORAL SCH ×2 (08:59→17:13)
[2018-05-08] MEDS: Lactulose 10gm/15ml UDC ORAL SCH ×3 (08:59→17:13)
[2018-05-08] MEDS: Aspirin Baby 81mg ORAL SCH (08:59)
[2018-05-08] MEDS: ZyPREXA Zydis 5mg tab ORAL SCH ×2 (09:00→17:14)
[2018-05-08] MEDS: Heparin 5000 units/ml inj SUBQ SCH ×3 (09:00→21:25)
[2018-05-08] MEDS: Memantine 5 MG TAB ORAL SCH ×2 (09:00→17:14)
--- NOTE | 2018-05-08 09:18 | Infectious Diseases Prog Note ---
Assessment/Plan Assessment/Plan Sepsis, improving- likely from intraabdominal source and PNA- Lung opacities- r/o inefctions vs malignancy -sp cx PSA and yeast -CT Chest: Severe emphysema with masslike opacity in the left upper lobe and nodular opacity in the medial left lower lobe. Findings may be related to pneumonia although underlying scarring/fibrotic change or neoplasm/malignancy cannot be excluded. Recommend clinical correlation and short-term interval follow-up imaging after appropriate treatment to assess for resolution. Evidence of prior granulomatous exposure with scattered calcified granulomas and calcified hilar or mediastinal lymph nodes. Trace pleural effusions versus pleural thickening. u/a neg Bcx NTD CXR: Ill-defined airspace opacity at the left apex and right perihilar to mid area not significantly changed in appearance may represent multifocal pneumonia. Ill-defined 2 cm nodular density at the medial left lower lung concerning for lesion partially imaged on CT of the abdomen and pelvis. Difficult to exclude a 1.4 cm ill-defined lesion at the right apex superimposed over the posterior right fourth rib. Sequela of previous granulomatous disease and hyperinflation, emphysematous change of the left mid to lower lung again noted -neg HIV ab sc Coffee ground emesis Abdominal pain- ileus vs SBP -KUB: 1Diffuse gaseous distention of large and small bowel loops, nonspecific. This may suggest ileus or partial obstruction. Fecal retention in the right colon, which may suggest constipation. -CT ab/p p Afebrile Leukocytosis, improving Recent PNA, s/p Rx -04/17 sp cx MRSA, PsA (franklin S) -influenz sc neg - HIV : neg GERD DM2 HTN COPD SNF resident anemia BPH PVD cachectic DNR Plan: -Continue empiric Zosyn # 13/ 14 -05/05/18 SP IV Vancomycin # 6 -04/22 SP PO Levaquin and Linezolid #7 -04/16 SP Augmentin #1 -Monitor CBC/CMP, temperatures -GI, Sx fu -aspiration precautions Thank you for this consultation. Will continue to follow along with you. Subjective Allergies: Coded Allergies: RISPERIDONE (Verified Allergy, Intermediate, 04/27/16) Subjective IVETH Afebrile Leukocytosis resolved Awake and talking Objective Vital Signs Last 24 Hour Vital Signs Date Time Temp Pulse Resp B/P (MAP) Pulse Ox O2 Delivery O2 Flow Rate FiO2 05/08/18 08:00 98.0 104 17 111/52 (71) 94 05/08/18 04:00 98.1 20 101/58 (72) 93 05/08/18 03:04 105 20 94 Nasal Cannula 3.0 32 05/08/18 02:54 98 16 94 Nasal Cannula 3.0 32 05/07/18 23:57 98 20 Nasal Cannula 3.0 32 05/07/18 23:57 Nasal Cannula 3.0 32 05/07/18 23:57 Nasal Cannula 3.0 32 05/07/18 21:00 Nasal Cannula 3.0 Nasal Cannula 3.0 Nasal Cannula 3.0 Nasal Cannula 3.0 05/07/18 20:57 Nasal Cannula 3.0 32 05/07/18 20:57 94 Nasal Cannula 3.0 32 05/07/18 20:50 Nasal Cannula 3.0 32 05/07/18 20:50 Nasal Cannula 3.0 32 05/07/18 16:00 97.9 96 24 112/65 (81) 05/07/18 15:56 Nasal Cannula 05/07/18 15:55 Nasal Cannula 05/07/18 12:00 97.5 96 23 97/45 (62) 97 05/07/18 11:16 79 22 95 Nasal Cannula 3.0 32 05/07/18 11:04 85 22 94 Nasal Cannula 3.0 32 Height (Feet): 5 Height (Inches): 7.00 Weight (Pounds): 161 Objective Gen: NAD Cardiovascular: RRR, s1, s2 Respiratory: Course B/L No W Abdomen: soft, flat, non-tender, present bowel sounds Current Medications Medications (Trade) Dose Ordered Sig/Amish Route PRN Reason Start Time Stop Time Status Last Admin Dose Admin Acetylcysteine (Mucomyst) 100 mg Q4HRT [facility] 05/03/18 23:00 06/02/18 22:59 05/08/18 08:07 Albuterol/ Ipratropium (Albuterol/ Ipratropium) 3 ml Q4HRT [facility] 05/03/18 11:00 05/08/18 10:59 05/08/18 08:07 Aspirin (ASA) 81 mg DAILY ORAL 04/26/18 09:00 05/26/18 08:59 05/07/18 11:04 Atorvastatin Calcium (Lipitor) 10 mg BEDTIME ORAL 05/01/18 21:00 05/26/18 20:59 05/07/18 20:30 Bisacodyl (Dulcolax) 10 mg DAILYPRN PRN RECTAL Constipation 04/26/18 02:30 05/26/18 02:29 04/27/18 21:06 Docusate Sodium (Colace) 100 mg TWICE A DAY ORAL 04/26/18 09:00 05/26/18 08:59 05/07/18 18:14 Heparin Sodium (Porcine) (Heparin 5000 units/ml) 5,000 units EVERY 12 HOURS SUBQ 04/26/18 09:00 05/26/18 08:59 05/07/18 11:06 Iopamidol (Isovue-300 100ml) 100 ml NOW PRN INJ Radiology Procedure 05/03/18 20:00 06/02/18 19:59 Lactulose (Cephulac) 20 gm THREE TIMES A DAY ORAL 04/27/18 09:00 05/26/18 08:59 05/04/18 17:40 Magnesium Hydroxide (Mom) 30 ml HSPRN PRN ORAL Constipation 04/26/18 02:30 05/26/18 02:29 Memantine (Namenda) 5 mg BID ORAL 04/26/18 18:00 05/26/18 17:59 05/07/18 18:13 Olanzapine (ZyPREXA Zydis) 5 mg BID ORAL 04/26/18 18:00 05/26/18 17:59 05/07/18 18:13 Ondansetron HCl (Zofran) 4 mg Q4H PRN IVP Nausea & Vomiting 04/26/18 02:15 05/26/18 02:14 04/29/18 18:34 Pantoprazole (Protonix) 40 mg BID ORAL 05/01/18 18:00 05/26/18 06:29 05/07/18 18:13 Piperacillin Sod/ Tazobactam Sod 3.375 gm/Dextrose 110 ml @ 27.5 mls/hr EVERY 8 HOURS IVPB 04/26/18 11:30 05/09/18 11:29 05/08/18 05:50 Polyethylene Glycol (Miralax) 17 gm BEDTIME ORAL 04/26/18 21:00 05/26/18 20:59 05/07/18 20:30 Sennosides (Senokot) 17.2 mg BEDTIME ORAL 04/26/18 21:00 05/26/18 20:59 05/07/18 20:30 Sodium Phosphate (Fleet's Sodium Phosl Enema) 133 ml QOD PRN RECTAL Constipation 04/26/18 02:30 05/26/18 02:29 04/28/18 02:21 Tiotropium [place] (Spiriva Inhaler) 1 puff DAILY INH 04/26/18 09:00 05/26/18 08:59 05/08/18 08:25 Suraj Elder MD May 08, 2018 09:18
--- NOTE | 2018-05-08 10:45 | Cardiac Electrophysiology PN ---
Assessment/Plan Assessment/Plan 1. HTN, Stable off any BP meds 2. COPD, PNA on abx and nasal cannula. FU DR Sánchez 3. Intractable vomiting Fu Dr. Sy and Flo. S/P CT abdomen 4. Chest pain, atypical 5. NIDDM 6. Dysphagia, passed swallow eval and eating DW RN Subjective Subjective No CP. Comfortable in NAD. DC planning in progress Objective Last 24 Hour Vital Signs Date Time Temp Pulse Resp B/P (MAP) Pulse Ox O2 Delivery O2 Flow Rate FiO2 05/08/18 09:00 Nasal Cannula 3.0 Nasal Cannula 3.0 Nasal Cannula 3.0 Nasal Cannula 3.0 05/08/18 08:00 98.0 104 17 111/52 (71) 94 05/08/18 04:00 98.1 20 101/58 (72) 93 05/08/18 03:04 105 20 94 Nasal Cannula 3.0 32 05/08/18 02:54 98 16 94 Nasal Cannula 3.0 32 05/07/18 23:57 98 20 Nasal Cannula 3.0 32 05/07/18 23:57 Nasal Cannula 3.0 32 05/07/18 23:57 Nasal Cannula 3.0 32 05/07/18 21:00 Nasal Cannula 3.0 Nasal Cannula 3.0 Nasal Cannula 3.0 Nasal Cannula 3.0 05/07/18 20:57 Nasal Cannula 3.0 32 05/07/18 20:57 94 Nasal Cannula 3.0 32 05/07/18 20:50 Nasal Cannula 3.0 32 05/07/18 20:50 Nasal Cannula 3.0 32 05/07/18 16:00 97.9 96 24 112/65 (81) 05/07/18 15:56 Nasal Cannula 05/07/18 15:55 Nasal Cannula 05/07/18 12:00 97.5 96 23 97/45 (62) 97 05/07/18 11:16 79 22 95 Nasal Cannula 3.0 32 05/07/18 11:04 85 22 94 Nasal Cannula 3.0 32 Intake and Output 05/07/18 05/08/18 19:00 07:00 Intake Total 600 ml 377.5 ml Output Total 700 ml 850 ml Balance -100 ml -472.5 ml Intake Oral 600 ml 240 ml IV Total 137.5 ml Output Urine Total 700 ml 850 ml Objective HEENT: No JVD . Cardiovascular: Normal rate, regular rhythm. No G/R/M Respiratory/Chest: Coarse rhonchi Abdomen: soft, no organomegaly Extremities: no swelling Ralph Loomis MD May 08, 2018 10:45
--- NOTE | 2018-05-08 10:54 | GI Progress Note ---
Assessment/Plan Problems: (1) Intractable vomiting ICD Codes: R11.10 - Vomiting, unspecified SNOMED: 110002737, 955104366 Qualifiers: Qualified Codes: R11.2 - Nausea with vomiting, unspecified (2) GERD (gastroesophageal reflux disease) ICD Codes: K21.9 - Gastro-esophageal reflux disease without esophagitis SNOMED: 854171232 (3) Fecal impaction ICD Codes: K56.41 - Fecal impaction SNOMED: 78127111 (4) Anemia ICD Codes: D64.9 - Anemia, unspecified SNOMED: 337486244 (5) Abdominal pain ICD Codes: R10.9 - Unspecified abdominal pain SNOMED: 98739631, 517804580 Qualifiers: Qualified Codes: R10.13 - Epigastric pain (6) Constipation ICD Codes: K59.00 - Constipation, unspecified SNOMED: 38746855 (7) Severe protein-calorie malnutrition ICD Codes: E43 - Unspecified severe protein-calorie malnutrition SNOMED: 889994954 Status: stable Status Narrative Discussed with Dr. Sy Assessment/Plan Assessment/Plan SUMMARY OF FINDINGS: 1. Large hiatal hernia. 2. Minimum distal esophagitis. 3. Gastritis, status post biopsy. RECOMMENDATIONS: 1. Follow up biopsy results. -- > HP (-) gastritis 2. Monitor hemoglobin and hematocrit. Transfuse as needed. 3. Continue on PPI daily given esophagitis. 4. PO diet tolerated. 5. The patient may benefit from colonoscopy - can do as outpatient if patient agreeable The patient was seen and examined at bedside and all new and available data was reviewed in the patients chart. I agree with the above findings, impression and plan. (Patient seen earlier today. Signature stamp does not reflect patient encounter time.). - Gonzales Sy MD Subjective Subjective Abdominal pain resolved Has no complaints Objective Last 24 Hour Vital Signs Date Time Temp Pulse Resp B/P (MAP) Pulse Ox O2 Delivery O2 Flow Rate FiO2 05/08/18 09:00 Nasal Cannula 3.0 Nasal Cannula 3.0 Nasal Cannula 3.0 Nasal Cannula 3.0 05/08/18 08:00 98.0 104 17 111/52 (71) 94 05/08/18 04:00 98.1 20 101/58 (72) 93 05/08/18 03:04 105 20 94 Nasal Cannula 3.0 32 05/08/18 02:54 98 16 94 Nasal Cannula 3.0 32 05/07/18 23:57 98 20 Nasal Cannula 3.0 32 05/07/18 23:57 Nasal Cannula 3.0 32 05/07/18 23:57 Nasal Cannula 3.0 32 05/07/18 21:00 Nasal Cannula 3.0 Nasal Cannula 3.0 Nasal Cannula 3.0 Nasal Cannula 3.0 05/07/18 20:57 Nasal Cannula 3.0 32 05/07/18 20:57 94 Nasal Cannula 3.0 32 05/07/18 20:50 Nasal Cannula 3.0 32 05/07/18 20:50 Nasal Cannula 3.0 32 05/07/18 16:00 97.9 96 24 112/65 (81) 05/07/18 15:56 Nasal Cannula 05/07/18 15:55 Nasal Cannula 05/07/18 12:00 97.5 96 23 97/45 (62) 97 05/07/18 11:16 79 22 95 Nasal Cannula 3.0 32 05/07/18 11:04 85 22 94 Nasal Cannula 3.0 32 Intake and Output 05/07/18 05/08/18 19:00 07:00 Intake Total 600 ml 377.5 ml Output Total 700 ml 850 ml Balance -100 ml -472.5 ml Intake Oral 600 ml 240 ml IV Total 137.5 ml Output Urine Total 700 ml 850 ml Height (Feet): 5 Height (Inches): 7.00 Weight (Pounds): 161 General Appearance: WD/WN, no apparent distress, alert, thin Cardiovascular: normal rate Respiratory/Chest: normal breath sounds, no respiratory distress Abdominal Exam: normal bowel sounds, non tender, soft Extremities: non-tender Gail Streeter RADIUS GRINDER May 08, 2018 10:54
--- NOTE | 2018-05-08 11:25 | Nephrology Progress Note ---
Assessment/Plan Problem List: (1) Acute renal failure (2) Anemia (3) Hypokalemia Assessment episode of Low BP leading to rise of Cr 1.3 to 1.9 - Acute renal failure-back to 1.5 Anemia Hypokalemia HypoAlbuminemia Plan labs of 05/06 reviewed refuses further blood work. continue current support ? Hospice? DC planning?? Urine studies fluid chalenge as needed Cortés Monitor renal parameters Subjective ROS Limited/Unobtainable: No Constitutional: Reports: malaise Objective Objective Last 24 Hour Vital Signs Date Time Temp Pulse Resp B/P (MAP) Pulse Ox O2 Delivery O2 Flow Rate FiO2 05/08/18 09:00 Nasal Cannula 3.0 Nasal Cannula 3.0 Nasal Cannula 3.0 Nasal Cannula 3.0 05/08/18 08:00 98.0 104 17 111/52 (71) 94 05/08/18 04:00 98.1 20 101/58 (72) 93 05/08/18 03:04 105 20 94 Nasal Cannula 3.0 32 05/08/18 02:54 98 16 94 Nasal Cannula 3.0 32 05/07/18 23:57 98 20 Nasal Cannula 3.0 32 05/07/18 23:57 Nasal Cannula 3.0 32 05/07/18 23:57 Nasal Cannula 3.0 32 05/07/18 21:00 Nasal Cannula 3.0 Nasal Cannula 3.0 Nasal Cannula 3.0 Nasal Cannula 3.0 05/07/18 20:57 Nasal Cannula 3.0 32 05/07/18 20:57 94 Nasal Cannula 3.0 32 05/07/18 20:50 Nasal Cannula 3.0 32 05/07/18 20:50 Nasal Cannula 3.0 32 05/07/18 16:00 97.9 96 24 112/65 (81) 05/07/18 15:56 Nasal Cannula 05/07/18 15:55 Nasal Cannula 05/07/18 12:00 97.5 96 23 97/45 (62) 97 Intake and Output 05/07/18 05/08/18 19:00 07:00 Intake Total 600 ml 377.5 ml Output Total 700 ml 850 ml Balance -100 ml -472.5 ml Intake Oral 600 ml 240 ml IV Total 137.5 ml Output Urine Total 700 ml 850 ml Height (Feet): 5 Height (Inches): 7.00 Weight (Pounds): 161 General Appearance: no apparent distress Respiratory/Chest: decreased breath sounds Abdomen: soft Objective no change Cheo Balderrama MD May 08, 2018 11:25
[2018-05-08 12:00] VITALS: BP 125/62
--- NOTE | 2018-05-08 13:29 | General Surgery Progress Note ---
General Surgery-Progress Note Subjective Symptoms: improved, tolerating diet, passing flatus Additional Comments no acute events. Objective Last 24 Hour Vital Signs Date Time Temp Pulse Resp B/P (MAP) Pulse Ox O2 Delivery O2 Flow Rate FiO2 05/08/18 11:56 Nasal Cannula 05/08/18 11:55 Nasal Cannula 05/08/18 09:00 Nasal Cannula 3.0 Nasal Cannula 3.0 Nasal Cannula 3.0 Nasal Cannula 3.0 05/08/18 08:27 78 20 94 Nasal Cannula 3.0 32 05/08/18 08:25 79 20 94 Nasal Cannula 3.0 32 05/08/18 08:17 105 18 95 Nasal Cannula 3.0 32 05/08/18 08:07 86 18 95 Nasal Cannula 3.0 32 05/08/18 08:06 Nasal Cannula 3.0 32 05/08/18 08:05 95 Nasal Cannula 3.0 32 05/08/18 08:00 98.0 104 17 111/52 (71) 94 05/08/18 04:00 98.1 20 101/58 (72) 93 05/08/18 03:04 105 20 94 Nasal Cannula 3.0 32 05/08/18 02:54 98 16 94 Nasal Cannula 3.0 32 05/07/18 23:57 98 20 Nasal Cannula 3.0 32 05/07/18 23:57 Nasal Cannula 3.0 32 05/07/18 23:57 Nasal Cannula 3.0 32 05/07/18 21:00 Nasal Cannula 3.0 Nasal Cannula 3.0 Nasal Cannula 3.0 Nasal Cannula 3.0 05/07/18 20:57 Nasal Cannula 3.0 32 05/07/18 20:57 94 Nasal Cannula 3.0 32 05/07/18 20:50 Nasal Cannula 3.0 32 05/07/18 20:50 Nasal Cannula 3.0 32 05/07/18 16:00 97.9 96 24 112/65 (81) 05/07/18 15:56 Nasal Cannula 05/07/18 15:55 Nasal Cannula I&O Intake and Output 05/07/18 05/08/18 19:00 07:00 Intake Total 600 ml 377.5 ml Output Total 700 ml 850 ml Balance -100 ml -472.5 ml Intake Oral 600 ml 240 ml IV Total 137.5 ml Output Urine Total 700 ml 850 ml Drains: none Cardiovascular: RSR Respiratory: clear Abdomen: soft, non-tender, present bowel sounds Extremities: other Plan Problems: (1) Abdominal pain Assessment & Plan: abdominal pain. nausea. coffee ground emesis. leukocytosis. labs noted exam benign. abd soft, nt/nd, bs+ CT without obstruction as per report fecal impaction s/p EGD given KUB will order CT with oral contrast to be sure no obstruction --> New nonobstructed small bowel loop extension into right indirect internal hernia , no findings to suggest ischemia or acute abnormality at this time. Findings suggesting bibasilar aspiration, correlate clinically. Bibasilar emphysema could represent alpha-1 antitrypsin deficiency, correlate clinically. Distal esophageal small amount of retained enteric contrast, this could place the patient at risk for aspiration. Unchanged nodular bilateral adrenal thickening, with hazy attenuation, suggesting possible adrenal mild hemorrhage which is of uncertain clinical significance. Correlate with older studies if available to evaluate for stability over time. Consider CT or MRI adrenal glands to further characterize. High-density material along the skin surface in the groin of uncertain significance. Correlate clinically. -hernia reducible and no obstruction noted -no acute surgical intervention planned -okay for diet -bowel regimen -d/c planning thank you will follow with recs. Ilia Rossi May 08, 2018 13:29
[2018-05-08] MEDS ORDERED: Albuterol/Ipratropium 3ml neb HHN SCH (16:00)
--- NOTE | 2018-05-08 16:24 | Pulmonology Progress Note ---
Assessment/Plan Problems: (1) Lung mass (2) CKD (chronic kidney disease) (3) Severe protein-calorie malnutrition (4) Emphysema of lung (5) Wound of sacral region (6) Intractable vomiting Assessment/Plan f/u consultants intern recommendations pt is poor candidate to do a lung biopsy, symptomatic treatment check electrolytes look for family members Subjective ROS Limited/Unobtainable: No Constitutional: Reports: no symptoms HEENT: Repors: no symptoms Respiratory: Reports: no symptoms Allergies: Coded Allergies: RISPERIDONE (Verified Allergy, Intermediate, 04/27/16) Objective Last 24 Hour Vital Signs Date Time Temp Pulse Resp B/P (MAP) Pulse Ox O2 Delivery O2 Flow Rate FiO2 05/08/18 16:05 88 16 98 Nasal Cannula 3.0 32 05/08/18 15:55 79 16 95 Nasal Cannula 3.0 32 05/08/18 11:56 Nasal Cannula 05/08/18 11:55 Nasal Cannula 05/08/18 09:00 Nasal Cannula 3.0 Nasal Cannula 3.0 Nasal Cannula 3.0 Nasal Cannula 3.0 05/08/18 08:27 78 20 94 Nasal Cannula 3.0 32 05/08/18 08:25 79 20 94 Nasal Cannula 3.0 32 05/08/18 08:17 105 18 95 Nasal Cannula 3.0 32 05/08/18 08:07 86 18 95 Nasal Cannula 3.0 32 05/08/18 08:06 Nasal Cannula 3.0 32 05/08/18 08:05 95 Nasal Cannula 3.0 32 05/08/18 08:00 98.0 104 17 111/52 (71) 94 05/08/18 04:00 98.1 20 101/58 (72) 93 05/08/18 03:04 105 20 94 Nasal Cannula 3.0 32 05/08/18 02:54 98 16 94 Nasal Cannula 3.0 32 05/07/18 23:57 98 20 Nasal Cannula 3.0 32 05/07/18 23:57 Nasal Cannula 3.0 32 05/07/18 23:57 Nasal Cannula 3.0 32 05/07/18 21:00 Nasal Cannula 3.0 Nasal Cannula 3.0 Nasal Cannula 3.0 Nasal Cannula 3.0 05/07/18 20:57 Nasal Cannula 3.0 32 05/07/18 20:57 94 Nasal Cannula 3.0 32 05/07/18 20:50 Nasal Cannula 3.0 32 05/07/18 20:50 Nasal Cannula 3.0 32 Intake and Output 05/07/18 05/08/18 18:59 06:59 Intake Total 600 ml 377.5 ml Output Total 700 ml 850 ml Balance -100 ml -472.5 ml Intake Oral 600 ml 240 ml IV Total 137.5 ml Output Urine Total 700 ml 850 ml General Appearance: WD/WN HEENT: normocephalic, atraumatic Cardiovascular: normal peripheral pulses, regular rhythm Abdomen: normal bowel sounds, soft, non tender Genitourinary: normal external genitalia Skin: no rash Neurologic/Psychiatric: 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 grossly normal Lymphatic: no groin adenopathy Musculoskeletal: normal muscle bulk Current Medications Medications (Trade) Dose Ordered Sig/Amish Route PRN Reason Start Time Stop Time Status Last Admin Dose Admin Acetylcysteine (Mucomyst) 100 mg Q4HRT [facility] 05/03/18 23:00 06/02/18 22:59 05/08/18 15:55 Albuterol/ Ipratropium (Albuterol/ Ipratropium) 3 ml ONCE N 05/08/18 16:00 05/08/18 17:00 05/08/18 15:55 Albuterol/ Ipratropium (Albuterol/ Ipratropium) 3 ml Q4HRT N 05/08/18 19:00 05/13/18 18:59 Aspirin (ASA) 81 mg DAILY ORAL 04/26/18 09:00 05/26/18 08:59 05/07/18 11:04 Atorvastatin Calcium (Lipitor) 10 mg BEDTIME ORAL 05/01/18 21:00 05/26/18 20:59 05/07/18 20:30 Bisacodyl (Dulcolax) 10 mg DAILYPRN PRN RECTAL Constipation 04/26/18 02:30 05/26/18 02:29 04/27/18 21:06 Docusate Sodium (Colace) 100 mg TWICE A DAY ORAL 04/26/18 09:00 05/26/18 08:59 05/07/18 18:14 Heparin Sodium (Porcine) (Heparin 5000 units/ml) 5,000 units EVERY 12 HOURS SUBQ 04/26/18 09:00 05/26/18 08:59 05/07/18 11:06 Iopamidol (Isovue-300 100ml) 100 ml NOW PRN INJ Radiology Procedure 05/03/18 20:00 06/02/18 19:59 Lactulose (Cephulac) 20 gm THREE TIMES A DAY ORAL 04/27/18 09:00 05/26/18 08:59 05/04/18 17:40 Magnesium Hydroxide (Mom) 30 ml HSPRN PRN ORAL Constipation 04/26/18 02:30 05/26/18 02:29 Memantine (Namenda) 5 mg BID ORAL 04/26/18 18:00 05/26/18 17:59 05/07/18 18:13 Olanzapine (ZyPREXA Zydis) 5 mg BID ORAL 04/26/18 18:00 05/26/18 17:59 05/07/18 18:13 Ondansetron HCl (Zofran) 4 mg Q4H PRN IVP Nausea & Vomiting 04/26/18 02:15 05/26/18 02:14 04/29/18 18:34 Pantoprazole (Protonix) 40 mg BID ORAL 05/01/18 18:00 05/26/18 06:29 05/07/18 18:13 Piperacillin Sod/ Tazobactam Sod 3.375 gm/Dextrose 110 ml @ 27.5 mls/hr EVERY 8 HOURS IVPB 04/26/18 11:30 05/09/18 23:59 05/08/18 14:32 Polyethylene Glycol (Miralax) 17 gm BEDTIME ORAL 04/26/18 21:00 05/26/18 20:59 05/07/18 20:30 Sennosides (Senokot) 17.2 mg BEDTIME ORAL 04/26/18 21:00 05/26/18 20:59 05/07/18 20:30 Sodium Phosphate (Fleet's Sodium Phosl Enema) 133 ml QOD PRN RECTAL Constipation 04/26/18 02:30 05/26/18 02:29 04/28/18 02:21 Tiotropium [place] (Spiriva Inhaler) 1 puff DAILY INH 04/26/18 09:00 05/26/18 08:59 05/08/18 08:25 Alejandrina Cee MD May 08, 2018 16:23
[2018-05-08 20:00] VITALS: BP 106/56
[2018-05-08] MEDS: Miralax 17gm pkt ORAL SCH (21:21)
[2018-05-08] MEDS: Sennosides 8.6mg tab ORAL SCH (21:21)
--- NOTE | 2018-05-08 22:23 | General Progress Note ---
Assessment/Plan Assessment/Plan # Anemia of iron deficiency is likely related to gi bleed --> anemia panel has been reviewed --> transfuse if hgb <7 --> iv iron has been started --> egd was completed and shows gastritis, distal esophagitis is on ppi --> Blood tx: 04/29, hgb trend 9.5-->7.9-->8.2-->7.8 # Masslike opacity in the left upper lobe and nodular opacity in the medial left lower lobe. Findings may be related to pneumonia although underlying scarring/fibrotic change or neoplasm/malignancy cannot be excluded. Recommend clinical correlation and short-term interval follow-up imaging after appropriate treatment to assess for resolution. Evidence of prior granulomatous exposure with scattered calcified granulomas and calcified hilar or mediastinal lymph nodes. --> would repeat ct chest in 3 months --> if growing, enlarged, consider a ct guided bx # Leukocytosis likely reactive process from anemia --> ID is following, appreciate recs --> Monitor and trend wbc for improvement --> WBC remains elevated --> Remains on abx # GERD: continue on ppi # DM2, # HTN, # COPD # Emesis # Tachycardia # Chest pain, atypical angina Greatly appreciate consultation! Subjective Constitutional: Denies: no symptoms, chills, diaphoresis, fever, malaise, weakness, other Cardiovascular: Denies: no symptoms, chest pain, edema, irregular heart rate, lightheadedness, palpitations, syncope, other Respiratory: Denies: no symptoms, cough, orthopnea, shortness of breath, SOB with excertion, SOB at rest, sputum, stridor, wheezing, other Gastrointestinal/Abdominal: Denies: no symptoms, abdomen distended, abdominal pain, black stools, tarry stools, blood in stool, constipated, diarrhea, difficulty swallowing, nausea, poor appetite, poor fluid intake, rectal bleeding , vomiting, other Genitourinary: Denies: no symptoms, burning, discharge, frequency, flank pain, hematuria, incontinence, pain, urgency, other Neurologic/Psychiatric: Denies: no symptoms, anxiety, depressed, emotional problems, headache, numbness, paresthesia, pre-existing deficit, seizure, tingling, tremors, weakness, other Endocrine: Denies: no symptoms, excessive sweating, flushing, intolerance to cold, intolerance to heat, increased hunger, increased thirst, increased urine, unexplained weight gain, unexplained weight loss, other Allergies: Coded Allergies: RISPERIDONE (Verified Allergy, Intermediate, 04/27/16) Subjective 04/29: tolerating iv iron very well, h/h pending from today, will re-order cbc 04/30: Pt awake and alert. On NC. S/P blood tx, Hgb improved to 9.5. WBC remains elevated, afebrile, on abx. 05/02: no events breathing better 05/03: Pt awake and alert. Pt refusing care. 05/04: 3L nc, labs have been ordered, got rt, refusing certain labs and care 05/06: no events, no changes, no f/c, labs reviewed, has recently been refusing them 05/07: Pt is awake and alert, resting in bed, episode of Low BP leading to rise of Cr to 1.9 05/08: Pt is awake and alert, labs have been ordered, refusing labs and care. Objective Last 24 Hour Vital Signs Date Time Temp Pulse Resp B/P (MAP) Pulse Ox O2 Delivery O2 Flow Rate FiO2 05/08/18 21:00 Nasal Cannula 3.0 Nasal Cannula 3.0 Nasal Cannula 3.0 Nasal Cannula 3.0 05/08/18 20:35 97 Nasal Cannula 3.0 32 05/08/18 20:35 Nasal Cannula 3.0 32 05/08/18 20:33 Nasal Cannula 3.0 32 05/08/18 20:33 Nasal Cannula 3.0 32 05/08/18 20:00 97.5 20 106/56 (73) 100 05/08/18 16:05 88 16 98 Nasal Cannula 3.0 32 05/08/18 15:55 79 16 95 Nasal Cannula 3.0 32 05/08/18 11:56 Nasal Cannula 05/08/18 11:55 Nasal Cannula 05/08/18 09:00 Nasal Cannula 3.0 Nasal Cannula 3.0 Nasal Cannula 3.0 Nasal Cannula 3.0 05/08/18 08:27 78 20 94 Nasal Cannula 3.0 32 05/08/18 08:25 79 20 94 Nasal Cannula 3.0 32 05/08/18 08:17 105 18 95 Nasal Cannula 3.0 32 05/08/18 08:07 86 18 95 Nasal Cannula 3.0 32 05/08/18 08:06 Nasal Cannula 3.0 32 05/08/18 08:05 95 Nasal Cannula 3.0 32 05/08/18 08:00 98.0 104 17 111/52 (71) 94 05/08/18 04:00 98.1 20 101/58 (72) 93 05/08/18 03:04 105 20 94 Nasal Cannula 3.0 32 05/08/18 02:54 98 16 94 Nasal Cannula 3.0 32 05/07/18 23:57 98 20 Nasal Cannula 3.0 32 05/07/18 23:57 Nasal Cannula 3.0 32 05/07/18 23:57 Nasal Cannula 3.0 32 Intake and Output 05/07/18 05/08/18 19:00 07:00 Intake Total 600 ml 377.5 ml Output Total 700 ml 850 ml Balance -100 ml -472.5 ml Intake Oral 600 ml 240 ml IV Total 137.5 ml Output Urine Total 700 ml 850 ml Height (Feet): 5 Height (Inches): 7.00 Weight (Pounds): 161 Nick Bishop MD May 08, 2018 22:23
--- NOTE | 2018-05-09 00:42 | Progress Note ---
DATE: 05/08/2018 HISTORY OF PRESENT ILLNESS: The patient is an 83-year-old male patient. He is admitted to the hospital with abdominal pain and acute respiratory failure. He also has vomiting and abdominal pain. His cognition has declined below his baseline worsened by the stress of his medical illness. That is why, his attending has requested daily psychiatric consultation because the patient does have some agitation, irritability, and mood lability. MENTAL STATUS EXAMINATION: This is an 83-year-old male. Appearance is disheveled. Attitude, irritable and agitated. Affect, guarded and restricted. Intellect poor. Mood, depressed and anxious. Motor activity, psychomotor agitation. Attention span is poor. Orientation x2. Speech is pressured. Thought process, disorganized and illogical. Thought content, auditory hallucinations and paranoid delusions. Insight and judgment is poor. DIAGNOSES: 1. Paranoid schizophrenia with acute exacerbation. 2. Major depression with psychotic features, rule out dementia with psychosis. PLAN: Treat him with Zyprexa 5 mg p.o. twice a day and Namenda 5 mg twice a day. Provided him with 20 minutes of cognitive behavioral therapy to help him identify his automatic negative thoughts and help him convert those negative thoughts to more positive thoughts to reduce depression, anxiety, and to help him have more adaptive behavioral pattern. Chart reviewed. Discussed with staff. Seen and assessed in his room. Darrick Robert M.D. DR: NEFTALY JOB#: [id number] CC:
[2018-05-09] MEDS: Albuterol/Ipratropium 3ml neb HHN SCH ×4 (03:00→15:32)
[2018-05-09] MEDS: Piperacillin/Tazobactam 3.375 GM in D5W 110 ML IVPB SCH ×2 (05:12→14:00)
[2018-05-09] MEDS: ZyPREXA Zydis 5mg tab ORAL SCH (09:00)
[2018-05-09] MEDS: Memantine 5 MG TAB ORAL SCH (09:00)
[2018-05-09] MEDS: Aspirin Baby 81mg ORAL SCH (09:00)
[2018-05-09] MEDS: Heparin 5000 units/ml inj SUBQ SCH (09:00)
[2018-05-09] MEDS: Lactulose 10gm/15ml UDC ORAL SCH ×2 (09:00→13:00)
[2018-05-09] MEDS: Docusate 100mg cap ORAL SCH (09:00)
--- NOTE | 2018-05-09 09:30 | Infectious Diseases Prog Note ---
Assessment/Plan Assessment/Plan Sepsis resolved likely from intraabdominal source and PNA- Lung opacities- r/o inefctions vs malignancy -sp cx PSA and yeast -CT Chest: Severe emphysema with masslike opacity in the left upper lobe and nodular opacity in the medial left lower lobe. Findings may be related to pneumonia although underlying scarring/fibrotic change or neoplasm/malignancy cannot be excluded. Recommend clinical correlation and short-term interval follow-up imaging after appropriate treatment to assess for resolution. Evidence of prior granulomatous exposure with scattered calcified granulomas and calcified hilar or mediastinal lymph nodes. Trace pleural effusions versus pleural thickening. u/a neg Bcx NTD CXR: Ill-defined airspace opacity at the left apex and right perihilar to mid area not significantly changed in appearance may represent multifocal pneumonia. Ill-defined 2 cm nodular density at the medial left lower lung concerning for lesion partially imaged on CT of the abdomen and pelvis. Difficult to exclude a 1.4 cm ill-defined lesion at the right apex superimposed over the posterior right fourth rib. Sequela of previous granulomatous disease and hyperinflation, emphysematous change of the left mid to lower lung again noted -neg HIV ab sc Coffee ground emesis Abdominal pain- ileus vs SBP -KUB: 1Diffuse gaseous distention of large and small bowel loops, nonspecific. This may suggest ileus or partial obstruction. Fecal retention in the right colon, which may suggest constipation. 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 Will continue to follow along with you. Subjective Allergies: Coded Allergies: RISPERIDONE (Verified Allergy, Intermediate, 04/27/16) Subjective IVETH Afebrile Awake and talking Objective Vital Signs Last 24 Hour Vital Signs Date Time Temp Pulse Resp B/P (MAP) Pulse Ox O2 Delivery O2 Flow Rate FiO2 05/09/18 09:24 Nasal Cannula 05/09/18 09:24 Nasal Cannula 05/09/18 07:40 Nasal Cannula 3.0 32 05/09/18 07:40 Nasal Cannula 05/09/18 07:40 96 Nasal Cannula 3.0 32 05/09/18 07:40 Nasal Cannula 05/09/18 03:20 Nasal Cannula 05/09/18 03:10 95 20 97 Nasal Cannula 3.0 32 05/08/18 23:43 97 18 99 Nasal Cannula 3.0 32 05/08/18 23:31 99 18 99 Nasal Cannula 3.0 32 05/08/18 21:00 Nasal Cannula 3.0 Nasal Cannula 3.0 Nasal Cannula 3.0 Nasal Cannula 3.0 05/08/18 20:35 97 Nasal Cannula 3.0 32 05/08/18 20:35 Nasal Cannula 3.0 32 05/08/18 20:33 Nasal Cannula 3.0 32 05/08/18 20:33 Nasal Cannula 3.0 32 05/08/18 20:00 97.5 20 106/56 (73) 100 05/08/18 16:05 88 16 98 Nasal Cannula 3.0 32 05/08/18 15:55 79 16 95 Nasal Cannula 3.0 32 05/08/18 11:56 Nasal Cannula 05/08/18 11:55 Nasal Cannula Height (Feet): 5 Height (Inches): 7.00 Weight (Pounds): 161 Objective Gen: NAD, sitting in bed Cardiovascular: RRR, s1, s2 Respiratory: Course B/L No W Abdomen: soft, flat, non-tender, present bowel sounds Current Medications Medications (Trade) Dose Ordered Sig/Amish Route PRN Reason Start Time Stop Time Status Last Admin Dose Admin Acetylcysteine (Mucomyst) 100 mg Q4HRT [facility] 05/03/18 23:00 06/02/18 22:59 05/08/18 23:31 Albuterol/ Ipratropium (Albuterol/ Ipratropium) 3 ml Q4HRT [facility] 05/08/18 19:00 05/13/18 18:59 05/08/18 23:31 Aspirin (ASA) 81 mg DAILY ORAL 04/26/18 09:00 05/26/18 08:59 05/07/18 11:04 Atorvastatin Calcium (Lipitor) 10 mg BEDTIME ORAL 05/01/18 21:00 05/26/18 20:59 05/08/18 21:21 Bisacodyl (Dulcolax) 10 mg DAILYPRN PRN RECTAL Constipation 04/26/18 02:30 05/26/18 02:29 04/27/18 21:06 Docusate Sodium (Colace) 100 mg TWICE A DAY ORAL 04/26/18 09:00 05/26/18 08:59 05/07/18 18:14 Heparin Sodium (Porcine) (Heparin 5000 units/ml) 5,000 units EVERY 12 HOURS SUBQ 04/26/18 09:00 05/26/18 08:59 05/07/18 11:06 Iopamidol (Isovue-300 100ml) 100 ml NOW PRN INJ Radiology Procedure 05/03/18 20:00 06/02/18 19:59 Lactulose (Cephulac) 20 gm THREE TIMES A DAY ORAL 04/27/18 09:00 05/26/18 08:59 05/04/18 17:40 Magnesium Hydroxide (Mom) 30 ml HSPRN PRN ORAL Constipation 04/26/18 02:30 05/26/18 02:29 Memantine (Namenda) 5 mg BID ORAL 04/26/18 18:00 05/26/18 17:59 05/07/18 18:13 Olanzapine (ZyPREXA Zydis) 5 mg BID ORAL 04/26/18 18:00 05/26/18 17:59 05/07/18 18:13 Ondansetron HCl (Zofran) 4 mg Q4H PRN IVP Nausea & Vomiting 04/26/18 02:15 05/26/18 02:14 04/29/18 18:34 Pantoprazole (Protonix) 40 mg BID ORAL 05/01/18 18:00 05/26/18 06:29 05/07/18 18:13 Piperacillin Sod/ Tazobactam Sod 3.375 gm/Dextrose 110 ml @ 27.5 mls/hr EVERY 8 HOURS IVPB 04/26/18 11:30 05/09/18 23:59 05/09/18 05:12 Polyethylene Glycol (Miralax) 17 gm BEDTIME ORAL 04/26/18 21:00 05/26/18 20:59 1/3/19 21:21 Sennosides (Senokot) 17.2 mg BEDTIME ORAL 04/26/18 21:00 05/26/18 20:59 05/08/18 21:21 Sodium Phosphate (Fleet's Sodium Phosl Enema) 133 ml QOD PRN RECTAL Constipation 04/26/18 02:30 05/26/18 02:29 04/28/18 02:21 Tiotropium [place] (Spiriva Inhaler) 1 puff DAILY INH 04/26/18 09:00 05/26/18 08:59 05/08/18 08:25 Suraj Elder MD May 09, 2018 09:30
--- NOTE | 2018-05-09 12:01 | Nephrology Progress Note ---
Assessment/Plan Problem List: (1) Anemia (2) Hypokalemia Assessment episode of Low BP leading to rise of Cr 1.3 to 1.9 - Acute renal failure-back to 1.5 Anemia Hypokalemia HypoAlbuminemia Plan labs of 05/06 reviewed refuses further blood work. continue current support ? Hospice? DC planning?? Urine studies fluid chalenge as needed Cortés Monitor renal parameters Subjective ROS Limited/Unobtainable: No Constitutional: Reports: malaise Objective Objective Last 24 Hour Vital Signs Date Time Temp Pulse Resp B/P (MAP) Pulse Ox O2 Delivery O2 Flow Rate FiO2 05/09/18 10:58 90 18 99 Nasal Cannula 3.0 32 05/09/18 10:47 91 18 99 Nasal Cannula 3.0 32 05/09/18 09:24 Nasal Cannula 05/09/18 09:24 Nasal Cannula 05/09/18 09:00 Nasal Cannula 3.0 Nasal Cannula 3.0 Nasal Cannula 3.0 Nasal Cannula 3.0 05/09/18 07:40 Nasal Cannula 3.0 32 05/09/18 07:40 Nasal Cannula 05/09/18 07:40 96 Nasal Cannula 3.0 32 05/09/18 07:40 Nasal Cannula 05/09/18 03:20 Nasal Cannula 05/09/18 03:10 95 20 97 Nasal Cannula 3.0 32 05/08/18 23:43 97 18 99 Nasal Cannula 3.0 32 05/08/18 23:31 99 18 99 Nasal Cannula 3.0 32 05/08/18 21:00 Nasal Cannula 3.0 Nasal Cannula 3.0 Nasal Cannula 3.0 Nasal Cannula 3.0 05/08/18 20:35 97 Nasal Cannula 3.0 32 05/08/18 20:35 Nasal Cannula 3.0 32 05/08/18 20:33 Nasal Cannula 3.0 32 05/08/18 20:33 Nasal Cannula 3.0 32 05/08/18 20:00 97.5 20 106/56 (73) 100 05/08/18 16:05 88 16 98 Nasal Cannula 3.0 32 05/08/18 15:55 79 16 95 Nasal Cannula 3.0 32 Intake and Output 05/08/18 05/09/18 19:00 07:00 Intake Total 592.5 ml 250 ml Output Total 1200 ml 750 ml Balance -607.5 ml -500 ml Intake Oral 400 ml 250 ml IV Total 192.5 ml Output Urine Total 1200 ml 750 ml # Bowel Movements 1 Height (Feet): 5 Height (Inches): 7.00 Weight (Pounds): 161 General Appearance: no apparent distress Objective no change Cheo Balderrama MD May 09, 2018 12:01
--- NOTE | 2018-05-09 12:33 | GI Progress Note ---
Assessment/Plan Problems: (1) Intractable vomiting ICD Codes: R11.10 - Vomiting, unspecified SNOMED: 364016040, 111173881 Qualifiers: Qualified Codes: R11.2 - Nausea with vomiting, unspecified (2) GERD (gastroesophageal reflux disease) ICD Codes: K21.9 - Gastro-esophageal reflux disease without esophagitis SNOMED: 063766508 (3) Fecal impaction ICD Codes: K56.41 - Fecal impaction SNOMED: 78429042 (4) Anemia ICD Codes: D64.9 - Anemia, unspecified SNOMED: 244136514 (5) Constipation ICD Codes: K59.00 - Constipation, unspecified SNOMED: 76453691 (6) Severe protein-calorie malnutrition ICD Codes: E43 - Unspecified severe protein-calorie malnutrition SNOMED: 142974057 Status: stable Status Narrative Discussed with Dr. Sy Assessment/Plan Assessment/Plan SUMMARY OF FINDINGS: 1. Large hiatal hernia. 2. Minimum distal esophagitis. 3. Gastritis, status post biopsy. RECOMMENDATIONS: Okay for DC per GI standpoint 1. Follow up biopsy results. -- > HP (-) gastritis 2. Monitor hemoglobin and hematocrit. Transfuse as needed. 3. Continue on PPI daily given esophagitis. 4. PO diet tolerated. 5. The patient may benefit from colonoscopy - can do as outpatient if patient agreeable The patient was seen and examined at bedside and all new and available data was reviewed in the patients chart. I agree with the above findings, impression and plan. (Patient seen earlier today. Signature stamp does not reflect patient encounter time.). - Gonzales Sy MD Subjective Subjective Abdominal pain resolved Has no complaints Objective Last 24 Hour Vital Signs Date Time Temp Pulse Resp B/P (MAP) Pulse Ox O2 Delivery O2 Flow Rate FiO2 05/09/18 10:58 90 18 99 Nasal Cannula 3.0 32 05/09/18 10:47 91 18 99 Nasal Cannula 3.0 32 05/09/18 09:24 Nasal Cannula 05/09/18 09:24 Nasal Cannula 05/09/18 09:00 Nasal Cannula 3.0 Nasal Cannula 3.0 Nasal Cannula 3.0 Nasal Cannula 3.0 05/09/18 07:40 Nasal Cannula 3.0 32 05/09/18 07:40 Nasal Cannula 05/09/18 07:40 96 Nasal Cannula 3.0 32 05/09/18 07:40 Nasal Cannula 05/09/18 03:20 Nasal Cannula 05/09/18 03:10 95 20 97 Nasal Cannula 3.0 32 05/08/18 23:43 97 18 99 Nasal Cannula 3.0 32 05/08/18 23:31 99 18 99 Nasal Cannula 3.0 32 05/08/18 21:00 Nasal Cannula 3.0 Nasal Cannula 3.0 Nasal Cannula 3.0 Nasal Cannula 3.0 05/08/18 20:35 97 Nasal Cannula 3.0 32 05/08/18 20:35 Nasal Cannula 3.0 32 05/08/18 20:33 Nasal Cannula 3.0 32 05/08/18 20:33 Nasal Cannula 3.0 32 05/08/18 20:00 97.5 20 106/56 (73) 100 05/08/18 16:05 88 16 98 Nasal Cannula 3.0 32 05/08/18 15:55 79 16 95 Nasal Cannula 3.0 32 Intake and Output 05/08/18 05/09/18 19:00 07:00 Intake Total 592.5 ml 250 ml Output Total 1200 ml 750 ml Balance -607.5 ml -500 ml Intake Oral 400 ml 250 ml IV Total 192.5 ml Output Urine Total 1200 ml 750 ml # Bowel Movements 1 Height (Feet): 5 Height (Inches): 7.00 Weight (Pounds): 161 General Appearance: alert, thin Cardiovascular: normal rate Respiratory/Chest: normal breath sounds Abdominal Exam: soft Gail Streeter NP May 09, 2018 12:33
--- NOTE | 2018-05-09 14:40 | Cardiac Electrophysiology PN ---
Assessment/Plan Assessment/Plan 1. HTN, Stable off any BP meds 2. COPD, PNA on abx and nasal cannula. FU DR Sánchez 3. Intractable vomiting Fu Dr. Landeros. 4. Chest pain, atypical 5. NIDDM 6. Dysphagia, passed swallow eval and eating DW RN DC planning in progress Subjective Subjective No CP. Comfortable in NAD. No events Objective Last 24 Hour Vital Signs Date Time Temp Pulse Resp B/P (MAP) Pulse Ox O2 Delivery O2 Flow Rate FiO2 05/09/18 10:58 90 18 99 Nasal Cannula 3.0 32 05/09/18 10:47 91 18 99 Nasal Cannula 3.0 32 05/09/18 09:24 Nasal Cannula 05/09/18 09:24 Nasal Cannula 05/09/18 09:00 Nasal Cannula 3.0 Nasal Cannula 3.0 Nasal Cannula 3.0 Nasal Cannula 3.0 05/09/18 07:40 Nasal Cannula 3.0 32 05/09/18 07:40 Nasal Cannula 05/09/18 07:40 96 Nasal Cannula 3.0 32 05/09/18 07:40 Nasal Cannula 05/09/18 03:20 Nasal Cannula 05/09/18 03:10 95 20 97 Nasal Cannula 3.0 32 05/08/18 23:43 97 18 99 Nasal Cannula 3.0 32 05/08/18 23:31 99 18 99 Nasal Cannula 3.0 32 05/08/18 21:00 Nasal Cannula 3.0 Nasal Cannula 3.0 Nasal Cannula 3.0 Nasal Cannula 3.0 05/08/18 20:35 97 Nasal Cannula 3.0 32 05/08/18 20:35 Nasal Cannula 3.0 32 05/08/18 20:33 Nasal Cannula 3.0 32 05/08/18 20:33 Nasal Cannula 3.0 32 05/08/18 20:00 97.5 20 106/56 (73) 100 05/08/18 16:05 88 16 98 Nasal Cannula 3.0 32 05/08/18 15:55 79 16 95 Nasal Cannula 3.0 32 Intake and Output 05/08/18 05/09/18 19:00 07:00 Intake Total 592.5 ml 250 ml Output Total 1200 ml 750 ml Balance -607.5 ml -500 ml Intake Oral 400 ml 250 ml IV Total 192.5 ml Output Urine Total 1200 ml 750 ml # Bowel Movements 1 Objective HEENT: No JVD . Cardiovascular: Normal rate, regular rhythm. No G/R/M Respiratory/Chest: Coarse rhonchi Abdomen: soft, no organomegaly Extremities: no swelling Ralph Loomis MD May 09, 2018 14:40
--- NOTE | 2018-05-09 14:40 | Pulmonology Progress Note ---
Assessment/Plan Problems: (1) Lung mass (2) CKD (chronic kidney disease) (3) Severe protein-calorie malnutrition (4) Emphysema of lung (5) Wound of sacral region (6) Intractable vomiting Assessment/Plan doing better no new complains f/u sap ppm consultant recommendations pt is poor candidate to do a lung biopsy, symptomatic treatment check electrolytes look for family members Subjective ROS Limited/Unobtainable: No Constitutional: Reports: no symptoms HEENT: Repors: no symptoms Respiratory: Reports: no symptoms Allergies: Coded Allergies: RISPERIDONE (Verified Allergy, Intermediate, 04/27/16) Objective Last 24 Hour Vital Signs Date Time Temp Pulse Resp B/P (MAP) Pulse Ox O2 Delivery O2 Flow Rate FiO2 05/09/18 10:58 90 18 99 Nasal Cannula 3.0 32 05/09/18 10:47 91 18 99 Nasal Cannula 3.0 32 05/09/18 09:24 Nasal Cannula 05/09/18 09:24 Nasal Cannula 05/09/18 09:00 Nasal Cannula 3.0 Nasal Cannula 3.0 Nasal Cannula 3.0 Nasal Cannula 3.0 05/09/18 07:40 Nasal Cannula 3.0 32 05/09/18 07:40 Nasal Cannula 05/09/18 07:40 96 Nasal Cannula 3.0 32 05/09/18 07:40 Nasal Cannula 05/09/18 03:20 Nasal Cannula 05/09/18 03:10 95 20 97 Nasal Cannula 3.0 32 05/08/18 23:43 97 18 99 Nasal Cannula 3.0 32 05/08/18 23:31 99 18 99 Nasal Cannula 3.0 32 05/08/18 21:00 Nasal Cannula 3.0 Nasal Cannula 3.0 Nasal Cannula 3.0 Nasal Cannula 3.0 05/08/18 20:35 97 Nasal Cannula 3.0 32 05/08/18 20:35 Nasal Cannula 3.0 32 05/08/18 20:33 Nasal Cannula 3.0 32 05/08/18 20:33 Nasal Cannula 3.0 32 05/08/18 20:00 97.5 20 106/56 (73) 100 05/08/18 16:05 88 16 98 Nasal Cannula 3.0 32 05/08/18 15:55 79 16 95 Nasal Cannula 3.0 32 Intake and Output 05/08/18 05/09/18 19:00 07:00 Intake Total 592.5 ml 250 ml Output Total 1200 ml 750 ml Balance -607.5 ml -500 ml Intake Oral 400 ml 250 ml IV Total 192.5 ml Output Urine Total 1200 ml 750 ml # Bowel Movements 1 Objective General Appearance: cachetic HEENT: normocephalic, atraumatic Respiratory/Chest: chest wall non-tender, lungs clear Breasts: no masses Cardiovascular: normal peripheral pulses Abdomen: normal bowel sounds, soft, non tender Genitourinary: normal external genitalia Extremities: no clubbing Skin: no rash Current Medications Medications (Trade) Dose Ordered Sig/Amish Route PRN Reason Start Time Stop Time Status Last Admin Dose Admin Acetylcysteine (Mucomyst) 100 mg Q4HRT [facility] 05/03/18 23:00 06/02/18 22:59 05/09/18 10:47 Albuterol/ Ipratropium (Albuterol/ Ipratropium) 3 ml Q4HRT N 05/08/18 19:00 05/13/18 18:59 05/09/18 10:46 Aspirin (ASA) 81 mg DAILY ORAL 04/26/18 09:00 05/26/18 08:59 05/07/18 11:04 Atorvastatin Calcium (Lipitor) 10 mg BEDTIME ORAL 05/01/18 21:00 05/26/18 20:59 05/08/18 21:21 Bisacodyl (Dulcolax) 10 mg DAILYPRN PRN RECTAL Constipation 04/26/18 02:30 05/26/18 02:29 04/27/18 21:06 Docusate Sodium (Colace) 100 mg TWICE A DAY ORAL 04/26/18 09:00 05/26/18 08:59 05/07/18 18:14 Heparin Sodium (Porcine) (Heparin 5000 units/ml) 5,000 units EVERY 12 HOURS SUBQ 04/26/18 09:00 05/26/18 08:59 05/07/18 11:06 Iopamidol (Isovue-300 100ml) 100 ml NOW PRN INJ Radiology Procedure 05/03/18 20:00 06/02/18 19:59 Lactulose (Cephulac) 20 gm THREE TIMES A DAY ORAL 04/27/18 09:00 05/26/18 08:59 05/04/18 17:40 Magnesium Hydroxide (Mom) 30 ml HSPRN PRN ORAL Constipation 04/26/18 02:30 05/26/18 02:29 Memantine (Namenda) 5 mg BID ORAL 04/26/18 18:00 05/26/18 17:59 05/07/18 18:13 Olanzapine (ZyPREXA Zydis) 5 mg BID ORAL 04/26/18 18:00 05/26/18 17:59 05/07/18 18:13 Ondansetron HCl (Zofran) 4 mg Q4H PRN IVP Nausea & Vomiting 04/26/18 02:15 05/26/18 02:14 04/29/18 18:34 Pantoprazole (Protonix) 40 mg BID ORAL 05/01/18 18:00 05/26/18 06:29 05/07/18 18:13 Piperacillin Sod/ Tazobactam Sod 3.375 gm/Dextrose 110 ml @ 27.5 mls/hr EVERY 8 HOURS IVPB 04/26/18 11:30 05/09/18 23:59 05/09/18 05:12 Polyethylene Glycol (Miralax) 17 gm BEDTIME ORAL 04/26/18 21:00 05/26/18 20:59 05/08/18 21:21 Sennosides (Senokot) 17.2 mg BEDTIME ORAL 04/26/18 21:00 05/26/18 20:59 05/08/18 21:21 Sodium Phosphate (Fleet's Sodium Phosl Enema) 133 ml QOD PRN RECTAL Constipation 04/26/18 02:30 05/26/18 02:29 04/28/18 02:21 Tiotropium [place] (Spiriva Inhaler) 1 puff DAILY INH 04/26/18 09:00 05/26/18 08:59 05/08/18 08:25 Alejandrina Cee MD May 09, 2018 14:40
--- NOTE | 2018-05-09 16:34 | General Surgery Progress Note ---
General Surgery-Progress Note Subjective Additional Comments no acute events. stable for d/c Objective Last 24 Hour Vital Signs Date Time Temp Pulse Resp B/P (MAP) Pulse Ox O2 Delivery O2 Flow Rate FiO2 05/09/18 15:42 81 16 99 Nasal Cannula 3.0 32 05/09/18 15:32 88 18 99 Nasal Cannula 3.0 32 05/09/18 10:58 90 18 99 Nasal Cannula 3.0 32 05/09/18 10:47 91 18 99 Nasal Cannula 3.0 32 05/09/18 09:24 Nasal Cannula 05/09/18 09:24 Nasal Cannula 05/09/18 09:00 Nasal Cannula 3.0 Nasal Cannula 3.0 Nasal Cannula 3.0 Nasal Cannula 3.0 05/09/18 07:40 Nasal Cannula 3.0 32 05/09/18 07:40 Nasal Cannula 05/09/18 07:40 96 Nasal Cannula 3.0 32 05/09/18 07:40 Nasal Cannula 05/09/18 03:20 Nasal Cannula 05/09/18 03:10 95 20 97 Nasal Cannula 3.0 32 05/08/18 23:43 97 18 99 Nasal Cannula 3.0 32 05/08/18 23:31 99 18 99 Nasal Cannula 3.0 32 05/08/18 21:00 Nasal Cannula 3.0 Nasal Cannula 3.0 Nasal Cannula 3.0 Nasal Cannula 3.0 05/08/18 20:35 97 Nasal Cannula 3.0 32 05/08/18 20:35 Nasal Cannula 3.0 32 05/08/18 20:33 Nasal Cannula 3.0 32 05/08/18 20:33 Nasal Cannula 3.0 32 05/08/18 20:00 97.5 20 106/56 (73) 100 I&O Intake and Output 05/08/18 05/09/18 19:00 07:00 Intake Total 592.5 ml 250 ml Output Total 1200 ml 750 ml Balance -607.5 ml -500 ml Intake Oral 400 ml 250 ml IV Total 192.5 ml Output Urine Total 1200 ml 750 ml # Bowel Movements 1 Drains: none Cardiovascular: RSR Respiratory: clear Abdomen: soft, flat, non-tender, present bowel sounds Extremities: no cyanosis Plan Problems: (1) Intractable vomiting Assessment & Plan: abdominal pain. nausea. coffee ground emesis. leukocytosis. labs noted exam benign. abd soft, nt/nd, bs+ CT without obstruction as per report fecal impaction s/p EGD given KUB will order CT with oral contrast to be sure no obstruction --> New nonobstructed small bowel loop extension into right indirect internal hernia , no findings to suggest ischemia or acute abnormality at this time. Findings suggesting bibasilar aspiration, correlate clinically. Bibasilar emphysema could represent alpha-1 antitrypsin deficiency, correlate clinically. Distal esophageal small amount of retained enteric contrast, this could place the patient at risk for aspiration. Unchanged nodular bilateral adrenal thickening, with hazy attenuation, suggesting possible adrenal mild hemorrhage which is of uncertain clinical significance. Correlate with older studies if available to evaluate for stability over time. Consider CT or MRI adrenal glands to further characterize. High-density material along the skin surface in the groin of uncertain significance. Correlate clinically. -hernia reducible and no obstruction noted -no acute surgical intervention planned -okay for diet -bowel regimen -d/c planning thank you will follow with recs. Ilia Rossi May 09, 2018 16:34
--- NOTE | 2018-05-09 22:45 | Progress Note ---
DATE: 05/09/2018 SUBJECTIVE: The patient is an 83-year-old male patient with vomiting and abdominal pain, confusion, and disorganized thought process including mood lability, worsened by stress of his medical illness. He does have some agitation and irritability secondary to stress of his medical illness. That is why his attending has requested daily psychiatric consultation. MENTAL STATUS EXAMINATION: This is an 83-year-old male. Appearance is disheveled. Attitude, irritable and agitated. Affect, guarded and restricted. Intellect poor. Mood, depressed and anxious. Motor activity, psychomotor agitation. Attention span is poor. Orientation x2. Speech is pressured. Thought process, disorganized and illogical. Insight and judgment are poor. DIAGNOSIS: Paranoid schizophrenia with acute exacerbation. PLAN: Treat him with Abilify to help stabilize his mood. Provided him with 20 minutes of cognitive behavioral therapy to help him identify his automatic negative thoughts and help him convert those negative thoughts to more positive thoughts to reduce depression, anxiety, and suicidality. Chart reviewed. Discussed with staff. psychotherapy. Darrick Robert M.D. DR: BRINA JOB#: [id number] CC:
--- NOTE | 2018-05-10 01:54 | General Progress Note ---
Assessment/Plan Assessment/Plan # Anemia of iron deficiency is likely related to gi bleed --> anemia panel has been reviewed --> transfuse if hgb <7 --> iv iron has been started --> egd was completed and shows gastritis, distal esophagitis is on ppi --> Blood tx: 04/29, hgb trend 9.5-->7.9-->8.2-->7.8 # Masslike opacity in the left upper lobe and nodular opacity in the medial left lower lobe. Findings may be related to pneumonia although underlying scarring/fibrotic change or neoplasm/malignancy cannot be excluded. Recommend clinical correlation and short-term interval follow-up imaging after appropriate treatment to assess for resolution. Evidence of prior granulomatous exposure with scattered calcified granulomas and calcified hilar or mediastinal lymph nodes. --> would repeat ct chest in 3 months --> if growing, enlarged, consider a ct guided bx # Leukocytosis likely reactive process from anemia --> ID is following, appreciate recs --> Monitor and trend wbc for improvement --> WBC remains elevated --> Remains on abx # GERD: continue on ppi # DM2, # HTN, # COPD # Emesis # Tachycardia # Chest pain, atypical angina Greatly appreciate consultation! Subjective Constitutional: Denies: no symptoms, chills, diaphoresis, fever, malaise, weakness, other HEENT: Denies: no symptoms, eye pain, blurred vision, tearing, double vision, ear pain, ear discharge, nose pain, nose congestion, throat pain, throat swelling, mouth pain, mouth swelling, other Cardiovascular: Denies: no symptoms, chest pain, edema, irregular heart rate, lightheadedness, palpitations, syncope, other Respiratory: Denies: no symptoms, cough, orthopnea, shortness of breath, SOB with excertion, SOB at rest, sputum, stridor, wheezing, other Gastrointestinal/Abdominal: Denies: no symptoms, abdomen distended, abdominal pain, black stools, tarry stools, blood in stool, constipated, diarrhea, difficulty swallowing, nausea, poor appetite, poor fluid intake, rectal bleeding , vomiting, other Genitourinary: Denies: no symptoms, burning, discharge, frequency, flank pain, hematuria, incontinence, pain, urgency, other Neurologic/Psychiatric: Denies: no symptoms, anxiety, depressed, emotional problems, headache, numbness, paresthesia, pre-existing deficit, seizure, tingling, tremors, weakness, other Endocrine: Denies: no symptoms, excessive sweating, flushing, intolerance to cold, intolerance to heat, increased hunger, increased thirst, increased urine, unexplained weight gain, unexplained weight loss, other Hematologic/Lymphatic: Denies: no symptoms, anemia, easy bleeding, easy bruising, other Allergies: Coded Allergies: RISPERIDONE (Verified Allergy, Intermediate, 04/27/16) Subjective 04/29: tolerating iv iron very well, h/h pending from today, will re-order cbc 04/30: Pt awake and alert. On NC. S/P blood tx, Hgb improved to 9.5. WBC remains elevated, afebrile, on abx. 05/02: no events breathing better 05/03: Pt awake and alert. Pt refusing care. 05/04: 3L nc, labs have been ordered, got rt, refusing certain labs and care 05/06: no events, no changes, no f/c, labs reviewed, has recently been refusing them 05/07: Pt is awake and alert, resting in bed, episode of Low BP leading to rise of Cr to 1.9 05/08: Pt is awake and alert, labs have been ordered, refusing labs and care. 05/09/18: Pt is seen in the room, no acute distress, cbc reviewed, Objective Last 24 Hour Vital Signs Date Time Temp Pulse Resp B/P (MAP) Pulse Ox O2 Delivery O2 Flow Rate FiO2 05/09/18 15:42 81 16 99 Nasal Cannula 3.0 32 05/09/18 15:32 88 18 99 Nasal Cannula 3.0 32 05/09/18 10:58 90 18 99 Nasal Cannula 3.0 32 05/09/18 10:47 91 18 99 Nasal Cannula 3.0 32 05/09/18 09:24 Nasal Cannula 05/09/18 09:24 Nasal Cannula 05/09/18 09:00 Nasal Cannula 3.0 Nasal Cannula 3.0 Nasal Cannula 3.0 Nasal Cannula 3.0 05/09/18 07:40 Nasal Cannula 3.0 32 05/09/18 07:40 Nasal Cannula 05/09/18 07:40 96 Nasal Cannula 3.0 32 05/09/18 07:40 Nasal Cannula 05/09/18 03:20 Nasal Cannula 05/09/18 03:10 95 20 97 Nasal Cannula 3.0 32 Height (Feet): 5 Height (Inches): 7.00 Weight (Pounds): 161 Nick Bishop MD May 10, 2018 01:54
[2018-05-11] MEDS ORDERED: ZYRTEC10 MG ORAL (12:32)
--- NOTE | 2018-05-12 10:05 | Discharge Summary ---
Discharge Summary Discharge Summary _ DATE OF ADMISSION: 04/25/2018 DATE OF DISCHARGE: 05/09/2018 DISCHARGED BY: Dr. Joseph REASON FOR ADMISSION: 83 years old male with DNR/DNI status with selective treatment, with past medical history of hypertension, COPD/emphysema, chronic kidney disease, GERD , was sent from the correction facility with multiple episodes of coffee- ground emesis. Patient complained of burning , 7 out of 10, nonradiating abdominal pain. No fever , no chills. No chest pain or shortness of breath. Upon evaluation patient was tachycardic with heart rate 110 and required supplemental oxygen 2 L to maintain pulse oximetry 99%. Laboratory workup revealed significant leukocytosis WBC 20.8, hemoglobin 10.6 hematocrit 32.4. BUN 19, creatinine 1.1. Lipase and LFT within normal limits. Urinalysis revealed no evidence of UTI, +2 protein , +3 ketones. Abdominal x-ray revealed diffuse gaseous distention of large and small bowel , possibly suggestive of ileus or partial obstruction. Fecal retention in the right colon, likely suggestive of constipation. CXR revealed ill-defined airspace opacity at the left apex and right perihilar to mid area , not significantly changed in appearance , possibly representing multifocal pneumonia. Ill-defined 2 cm nodular density at the medial left lower lung concerning for lesion, partially imaged on CT of the abdomen and pelvis. Difficult to exclude a 1.4 cm ill-defined lesion at the right apex superimposed over the posterior right fourth rib. Sequela of previous granulomatous disease and hyperinflation, emphysematous change of the left mid to lower lung noted. CT of abdomen and pelvis revealed fecal impaction, no evidence of obstruction. Patient was admitted for further management CONSULTANTS: venetian blind cleaner and repairer Dr. Torre pulmonary Dr. Cee ID specialist Dr. Candelaria GI specialist Dr. Sy assistant head cashier Dr. Balderrama sign board erector/oncologist Dr. Bishop surgery Dr. Rossi psychiatrist Dr. Robert [facility] COURSE: Patient admitted and initially kept n.p.o. Patient started on the IV hydration. GI specialist and surgeon closely followed. Patient undergone EGD on 04/28 which revealed gastritis, status post biopsy, minimal distal esophagitis and large hiatal hernia. Pathology of stomach antrum revealed moderate chronic gastritis with focal activity , but was negative for Helicobacter infection. Patient started on PPI, given esophagitis. Patient started on diet , which was advanced as tolerated. Antiemetics were on board as needed. Stool for occult blood was positive. GI recommended that patient may benefit from colonoscopy. Hemoglobin and hematocrit were closely monitored with goal to keep hemoglobin above 7. Anemia workup was consistent with anemia of iron deficiency. Patient received 1 dose of IV iron , then due to high ferritin level of 1659 it was stopped. B12 and folate levels were stable. Surgeon closely followed. Initial CT scan of abdomen and pelvis demonstrated evidence of fecal impaction but revealed no evidence of obstruction. Clinical exam was benign. No acute surgical intervention was necessary. Surgeon cleared patient to start diet. Bowel regimen instituted. Repeated CT scan of abdomen and pelvis with contrast still showed no findings to suggest ischemia or acute abnormality . Puddler Pile Driving followed. CT of the chest was ordered due to abnormal chest x-ray and revealed severe emphysema with masslike opacity in the left upper lobe and nodular opacity in the medial left lower lobe. Evidence of prior granulomatous exposure . Supplemental oxygen provided as needed to keep pulse oximetry above 92%. Pulmonary toilet provided as needed. Patient with well-known history of smoking and COPD / emphysema. Patient was not a good candidate for biopsy given overall medical condition and DNR/DNI status, as per internal sales. Repeat CT chest in 3 months as recommended by oncologist. Infectious disease specialist followed. Sepsis was probably secondary to intra-abdominal source and pneumonia. Sputum culture revealed Pseudomonas and yeast. Urine culture was negative. Blood culture was negative. HIV test was negative. Urine Legionella antigen and cryptococci antigen were negative, Cocci antibodies still pending. Patient was on antibiotic as per ID specialist recommendations . Patient completed antibiotic regimen. Infectious disease specialist cleared for discharge off antibiotics. Leukocytosis resolved, afebrile. Inpatient Pharmacist followed. Blood pressure was closely monitored . Patient was off any antihypertensive medications at this time. Patient did complain of chest pain. Troponin was negative. EKG revealed no acute ischemic changes. Per cardiology, chest pain was atypical, possibly due to left upper lobe lung mass, Lipid panel was stable. Antiplatelet therapy with aspirin and statin continued. Chin Strap Cutter followed. Volumes and renal parameters were closely monitored. Electrolytes corrected as needed. Patient with known history of chronic kidney disease, but due to the episode of low blood pressure, developed acute renal failure with creatinine rising from 1.3 to 1.9. Albumin bolus and fluid bolus provided. Blood pressure stabilized. Creatinine down to 1.5. Nephrotoxins were avoided. Psychiatrist followed and diagnosed patient with paranoid schizophrenia with acute exacerbation. Psychiatric medication regimen was optimized. Psychotherapy provided. Patient was able to tolerata diet, no further episodes of coffee ground emesis. Leukocytosis resolved, afebrile, off antibiotics, Cooker Casing recommendations implemented in plan of care. Supportive care provided. Pain management was addressed. Patient clinically stabilized and was ready for transfer back to correction facility for continuation of care. FINAL DIAGNOSES: Sepsis - resolved ( likely from intra-abdominal source and pneumonia) Pneumonia Left lung upper lobe mass COPD/emphysema, Smoker Upper GI bleeding/cofee ground emesis Status post EGD Gastritis Large hiatal hernia Mild esophagitis GERD Severe protein calorie malnutrition Paranoid schizophrenia with acute exacerbation Acute renal failure on chronic kidney disease Anemia of iron deficiency Fecal impaction History of hypertension DISCHARGE MEDICATIONS: See Medication Reconciliation list. DISCHARGE INSTRUCTIONS: Patient was discharged to the correction facility. Follow up with medical doctor at the facility. I have been assigned to dictate discharge summary for this account. I was not involved in the patient's management. Myrna Cordova NP May 12, 2018 10:05
== END 2018-05-09 17:15 | DRG 871 ==
LOC: EDBD 19:11 → EMR 19:55 → EDBEDREQ 21:12 → 4E 21:24
PROC: 0DB78ZX Excision of Stomach, Pylorus, Via Natural or Artificial Opening Endoscopic, Diagnostic (ICD-10-PCS; principal; 2018-04-28 10:56)
DX: A41.9 Sepsis, unspecified organism (principal); E43 Unspecified severe protein-calorie malnutrition; K29.61 Other gastritis with bleeding; N17.9 Acute kidney failure, unspecified; F20.0 Paranoid schizophrenia; F31.81 Bipolar II disorder; E87.1 Hypo-osmolality and hyponatremia; K56.41 Fecal impaction; Z68.25 Body mass index [BMI] 25.0-25.9, adult; K44.9 Diaphragmatic hernia without obstruction or gangrene; K21.0 Gastro-esophageal reflux disease with esophagitis; J44.9 Chronic obstructive pulmonary disease, unspecified; I12.9 Hypertensive chronic kidney disease with stage 1 through stage 4 chronic kidney disease, or unspecified chronic kidney disease; E11.22 Type 2 diabetes mellitus with diabetic chronic kidney disease; N18.9 Chronic kidney disease, unspecified; I73.9 Peripheral vascular disease, unspecified; I20.8 Other forms of angina pectoris; N40.0 Benign prostatic hyperplasia without lower urinary tract symptoms; D50.9 Iron deficiency anemia, unspecified; R91.8 Other nonspecific abnormal finding of lung field; R13.10 Dysphagia, unspecified; E87.6 Hypokalemia
CPT/HCPCS: 36415; 36600; 71045; 71250; 74018; 74176; 74177; 80048; 80053; 80061; 80202; 81003; 82140; 82164; 82270; 82378; 82607; 82728; 82746; 82803; 82977; 83540; 83550; 83605; 83615; 83690; 83735; 83880; 84100; 84484; 84550; 85007; 85025; 86140; 86635; 86703; 86850; 86900; 86901; 86920; 87040; 87070; 87081; 87086; 87181; 87205; 87449; 94003; 94150; 94640; 94664; 94760; 96365; 96375; 97803; 99285; J2250; J2405; J7620